=== PATIENT | female | born 1995 | race Caucasian/White ===

== ENCOUNTER 2023-01-14 00:14 | Emergency (ER) | payer OTHER, SELFPAY ==
[2023-01-14 00:17] VITALS: BP 142/95; PULSE 103; RESP 18; TEMP 36.1; O2SAT 100; BMI 33.2
--- NOTE | 2023-01-14 01:22 | CT_ITS ---
EXAM: CT ANGIOGRAPHY CHEST WITHOUT AND WITH INTRAVENOUS CONTRAST CLINICAL INDICATION: BACK PAIN BETWEEN SHOULER BLADES BACK PAIN BETWEEN SHOULER BLADES TECHNIQUE: Helically acquired angiography images were obtained of the chest without and with intravenous contrast. This CT exam was performed using one or more of the following dose reduction techniques: automated exposure control, adjustment of the mA and/or kV according to patient size, and/or use of iterative reconstruction technique. MIP reconstructed images were created and reviewed. CONTRAST: IV 100mL Isovue-370 RADIATION DOSE: CTDIvol = 22.09 mGy, DLP = 594.55 mGy-cm COMPARISON: No relevant prior studies available. FINDINGS: PULMONARY ARTERIES: Unremarkable. Normal in caliber. No evidence of pulmonary embolism. AORTA: Unremarkable. Normal in caliber. No evidence of dissection. GREAT VESSELS OF AORTIC ARCH: Unremarkable. Normal in caliber. No evidence of dissection. LUNGS AND PLEURAL SPACES: Unremarkable. No mass. No consolidation or edema. No pleural effusion or thickening. No pneumothorax. HEART: Unremarkable. Heart size is normal. No pericardial effusion. No significant coronary artery calcifications. MEDIASTINUM: Unremarkable. No mediastinal or hilar adenopathy. Esophagus is unremarkable. No hiatal hernia. THYROID: Unremarkable. No thyroid lesions. BONES/JOINTS: There is mild multilevel spondylosis in the thoracic spine. No suspicious lytic or blastic abnormality. CT/CTA Chest W/WO Contrast IMPRESSION: 1. No evidence for acute cardiopulmonary pathology. 2. No evidence for pulmonary embolism, aortic aneurysm, or aortic dissection. Electronically Signed: Luis F Thomas MD at 2:28 EDT Reading Location ID and State: [facility] / [place] , Service support ,
--- NOTE | 2023-01-14 01:24 | EDS_ITS ---
HPI History of Present Illness Chief Complaint: Back Informant: patient and parent Narrative Narrative: 27-year-old female presenting with back and chest pain. Patient states that yesterday she saw a chiropractor for an ache in between her shoulder blades. She states she underwent an adjustment and felt better but not 100% resolved. She states that after the adjustment she gradually had a return of the pain and is now more severe. The patient states that it hurts in the front of her chest along the ribs. It is worse with movement cough. Patient screams when she sneezes and grabs her chest. She states the only position she can get in that is tolerable is bent forward at the waist leaning up against the bed. She notes a slight cough recently. No fevers. She denies any rashes. No DVT PE risk factors. She states she believes she has a dislocated rib PFSH [facility] Medical History Anxiety Chronic migraine Depression Interstitial cystitis Home Medications L norgest/E estradiol-E estrad 0.15 mg-30 mcg (84)/10 mcg(7) tabs,3mos (Amethia) 1 tab PO DAILY 01/14/23 [History Last Taken Unknown] MEDICAL MARIJUANA 01/14/23 [History Last Taken Unknown] cyclobenzaprine 10 mg tablet 10 mg PO TID PRN Muscle Spasm #15 TABLETS 01/14/23 [Rx Last Taken Unknown] duloxetine 20 mg capsule,delayed release (Cymbalta) 40 mg PO BID 01/14/23 [History Last Taken Unknown] fremanezumab-vfrm 225 mg/1.5 mL subcutaneous auto-injector (Ajovy) 225 mg subcut QMONTH PRN migraine headache 01/14/23 [History Last Taken Unknown] trazodone 50 mg tablet 50 mg PO QHS 01/14/23 [History Last Taken Unknown] Allergy/AdvReac Type Severity Reaction Status Date / Time amoxicillin Allergy Hives Verified 01/14/23 00:17 erythromycin base Allergy Hives Verified 01/14/23 00:17 Penicillins Allergy Hives Verified 01/14/23 00:17 sulfamethoxazole Allergy Hives Verified 01/14/23 00:17 [From Bactrim] trimethoprim [From Bactrim] Allergy Hives Verified 01/14/23 00:17 Social History Smoking Status: Never smoker ROS ROS ED Constitutional Constitutional ED: Denies chills or weight loss Eyes Eyes: Denies change in vision or diplopia ENT ENT ED: Denies ear pain, rhinorrhea or sore throat Cardiovascular Cardiovascular: Reports chest pain; Denies orthopnea, palpitations or racing heartbeat Respiratory/Chest Respiratory/Chest: Reports cough; Denies dyspnea or orthopnea Gastrointestinal Gastrointestinal: Denies abdominal pain, diarrhea, nausea or vomiting Genitourinary Genitourinary ED: Denies dysuria, hematuria or urinary frequency Musculoskeletal Musculoskeletal: Reports back pain; Denies arthralgias or myalgias Integumentary Denies abscess or rash Neurologic Neurologic: Denies headache(s) or weakness Psychiatric Psychiatric: Denies anxiety, depression, suicidal ideation or suicidal thoughts Endocrine Endocrinology: Denies polydipsia, polyphagia or polyuria Allergic/Immunologic Allergic/Immunologic ED: Denies mouth swelling, tongue swelling or urticaria EXAM Physical Exam Narrative Exam Narrative: Patient is sitting in a chair leaning forward with her head and arm against the head of the bed. Const Vital Signs: 01/14/23 00:17 01/14/23 01:43 Temperature 97 F L Temperature Source Temporal Pulse Rate 103 H Respiratory Rate 18 24 H Blood Pressure 142/95 H Blood Pressure Mean 110 Pulse Ox 100 Positive well nourished and well developed General Appearance ED: well developed HEENT Reports normocephalic, head/scalp atraumatic and moist mucous membranes Eyes PERRL and EOMs intact bilaterally Neck no lymphadenopathy, supple and no JVD Chest Wall Chest Narrative: Anterior chest wall tender to palpation Resp normal respiratory effort and clear to auscultation bilaterally Cardio regular rate, regular rhythm and no murmurs GI normal to inspection, nondistended, normoactive bowel sounds and non-tender Palpation: soft Back/Spine no CVA tenderness Back/Spine Narrative: Patient denies any tenderness to palpation of the thoracic spine or paraspinal musculature. There is no hyperemia. No palpable muscle spasm. She screams and begins breathing very hard when she sneezes clutching her chest. Extremity normal to inspection General Extremety ED: Negative for edema General Extremity: Negative for edema Neuro oriented x3 and CN's II-XII intact bilaterally Sensorium / Orientation: alert Motor Exam: strength 5/5 throughout Psych Psych Narrative: VDA Skin no rashes or lesions noted and no wounds MDM MDM MDM Narrative Medical decision making narrative: The patient received Toradol and Norflex. I also administered Benadryl which had improvement of anxiety and helped the patient relax. White count 14.5 with nonspecific significance. Differential normal. BMP showed glucose 132. CTA of the chest was negative for pulmonary embolism or dissection. No pneumothorax or effusion was noted. No obvious bony fractures were seen. On the recommend treatment at home for musculoskeletal pain. I can write for some Flexeril would also recommend a TENS unit and heat. Following up with primary care and or chiropractor. Lab Data Attestation: I reviewed the patient's lab results. Labs: Laboratory Results - last 24 hr 01/14/23 01:35 WBC 14.5 H RBC 4.61 Hgb 14.2 Hct 41.8 MCV 90.7 MCH 30.8 MCHC 34.0 RDW Std Deviation 44.7 H RDW Coeff of Sameer 13.3 Plt Count 227 MPV 9.9 Immature Gran % (Auto) 0.300 Neut % (Auto) 61.6 Lymph % (Auto) 28.2 [place] % (Auto) 8.4 Eos % (Auto) 1.1 Baso % (Auto) 0.4 Absolute Neuts (auto) 8.9 H Absolute Lymphs (auto) 4.09 Nucleated RBC % 0 Sodium 140 Potassium 3.7 Chloride 111 H Carbon Dioxide 23.0 Anion Gap 6 BUN 18 Creatinine 0.90 Estim Creat Clear Calc 98.13 Est GFR (MDRD) Af Amer 96 Est GFR (MDRD) Non-Af 79 BUN/Creatinine Ratio 19.9 Glucose 132 H Calcium 9.2 Discharge Plan Triage Chief Complaint: Back ED Provider: Jonathan Ernst Dx/Rx/DC Orders Clinical Impression: Chest wall pain, Back pain, thoracic Instructions: ED Back and Neck Pain, General Prescriptions: New cyclobenzaprine [cyclobenzaprine] 10 mg tablet 10 mg PO TID PRN (Reason: Muscle Spasm) Qty: 15 0RF No Action L norgest/e.estradiol-e.estrad [Amethia] 0.15 mg-30 mcg (84)/10 mcg (7) tablets,dose pack,3 month 1 tab PO DAILY trazodone 50 mg tablet 50 mg PO QHS duloxetine [Cymbalta] 20 mg capsule,delayed release(DR/EC) 40 mg PO BID MEDICAL MARIJUANA Ajovy Autoinjector 225 mg/1.5 mL auto-injector 225 mg subcut QMONTH PRN (Reason: migraine headache) Primary Care Provider: Anirudh Jerez Referrals: NOT,DEFINED [Non-Staff] - Activity Restrictions/Additional Instructions: I would recommend heat and gentle stretching If you have access to a TENS unit please utilize it Motrin 600 mg every 6 hours as needed for pain Disposition Disposition: Home, Self Care
[2023-01-14] MEDS: Ketorolac 30 MG/ML Syringe IV (01:37)
[2023-01-14] MEDS: Orphenadrine 60 MG/2 ML Ampul IM (01:37)
[2023-01-14 01:43] VITALS: RESP 24
[2023-01-14 01:44] LABS: Absolute Lymphocyte Count 4.09 X10^3/uL (0.83-4.51); Absolute Neutrophil Count 8.9 X10^3/uL (2.0-7.7); Basophil# 0.06 X10^3/uL; Basophil% 0.4 % (0-1); Eosinophil# 0.16 X10^3/uL; Eosinophils% 1.1 % (0-5); Hematocrit 41.8 % (37-47); Hemoglobin 14.2 g/dL (12.0-15.0); Lymphocyte # 4.09 X10^3/ul (0.83-4.51); Lymphocyte % 28.2 % (19-41); Mean Corpuscular Hgb 30.8 pg (27.0-32.0); Mean Corpuscular Volume 90.7 fL (81-99); Mean Platelet Vol. 9.9 fl (6.2-12.0); Monocyte# 1.21 X10^3/uL; Monocyte% 8.4 % (0-10); NRBC Flagged by Analyzer 0 % (0-5); Neutrophil # 8.92 X10^3/uL (2.7-7.7); Neutrophil % 61.6 % (47-70); Platelet Count 227 K/mm3 (150-450); RBC Distribution Width CV 13.3 % (11.6-14.6); RBC Distribution Width SD 44.7 fl (35.1-43.9); Red Blood Count 4.61 M/mm3 (4.2-5.4); White Blood Count 14.5 K/mm3 (4.4-11.0)
[2023-01-14] MEDS: DiphenhydrAMINE 50 MG/ML Syringe IV (01:49)
[2023-01-14 01:58] LABS: Anion Gap 6 (5-15); BUN 18 mg/dL (7-18); BUN/Creat Ratio 19.9 RATIO (10-20); Calcium,Total 9.2 mg/dL (8.5-10.1); Chloride 111 mmol/L (98-107); EST Glomerular Filtration Rate 79 mL/min (>60); Est Glom Filt Rate - Afr Amer 96 mL/min (>60); Estimated Creatinine Clearance 98.13 ml/min; Glucose 132 mg/dL (74-106); Potassium 3.7 mmol/L (3.5-5.1); Sodium Level 140 mmol/L (136-145)
[2023-01-14 03:21] VITALS: BP 131/81; PULSE 91; RESP 18; O2SAT 99
== END 2023-01-14 03:22 | disposition home or self-care (01) ==
PROVIDERS: Emergency Provider Emergency Medicine; PCP Family Medicine; Visit Provider Emergency Medicine
DX: R07.89 Other chest pain (principal); M54.6 Pain in thoracic spine; F41.9 Anxiety disorder, unspecified; G43.709 Chronic migraine without aura, not intractable, without status migrainosus; Z79.3 Long term (current) use of hormonal contraceptives; Z79.899 Other long term (current) drug therapy; F32.A Depression, unspecified
CPT/HCPCS: 71275; 80048; 85025; 96372; 96374; 96375; 99283; Q9967; A4216

== ENCOUNTER → 2023-03-18 | Outpatient (CLI) | payer OTHER, SELFPAY | END | disposition home or self-care (01) | LOC: LABSPEC 10:02 | PROVIDERS: PCP Family Medicine; Referring Provider Family Medicine; Visit Provider Family Medicine | DX: N39.0 Urinary tract infection, site not specified (principal) | CPT/HCPCS: 87491; 87591; 87661 ==

== ENCOUNTER 2023-12-14 08:00 | Outpatient (RCR) | payer OTHER, SELFPAY ==
--- NOTE | 2023-12-14 09:00 | BH.SGPN.GN ---
Behaviors/Verbalizations/Mental Status: [] Eye contact is good. Motor activity is appropriate. Appearance is casual. Speech is Appropriate. Mood is anxious/irritable. Affect is congruent. Thoughts are linear and logical. No evidence of psychosis. Reviewed daily check in sheet and pt reports 1/5 for suicidal thoughts and 1/5 for intent. Suicide risk assessment completed prior to group. Client Response/Progress/Benefit: [] Pt was an active participant in group discussions. Attentive. Daily symptom tracker notes 4/5 for irritability and 3/5 for depression, anxiety, and self-harm urges. Tearful at times. Today was pt's first day in IOP level of care and she briefly shared struggles which led to admission. Pt states that she was recently admitted to a psychiatric unit which described as a horrible experience. She elaborated on her poor care and how that impacted her. Appears to have caused some mistrust in mental health providers and the system as a whole. Visibly upset when describing her recent experiences. Admits to explosive anger which can be over small things. Also discussed self-harm and erratic mood which have impacted her functioning. According to pt she has also been having repressed memories. Admits to being very apprehensive about entering IOP and group counseling due to recent negative experiences. Group provided support and provided feedback on what to expect for her first day in [facility] which was beneficial. Will continue in [facility] to maintain safety, prevent decompensation/re-admission to psych unit, and to improve functioning. Narrative Note: []
--- NOTE | 2023-12-14 10:15 | BH.SGPN.GN ---
Behaviors/Verbalizations/Mental Status: []Client alert and oriented, casually dressed and groomed. Eye contact good. Motor activity appropriate. Speech within normal limits. Affect congruent, mood anxious and content. Thoughts linear, logical, no signs of hallucinations or delusions. Client Response/Progress/Benefit: [] Pt was an attentive an active participant, AEB taking notes and providing input in group discussion when prompted. Attentive during psychoeducation. Pt engaged during interactive discussion in which the group defined self-care and discussed its benefits. Group discussed barriers to engaging in self-care. Group members together came up with guilt, time, ?people pleasing?, not knowing what to do, and perception that its unproductive as barriers to engage in self-care. Pt stated their personal barrier is feeling like pt must ?earn it.? Pt participated in small groups where they worked to identified and challenged common self-care ?myths?. Benefited from increased awareness of self-care, its benefits, and the consequences of not utilizing self-care strategies. Will continue IOP tx to prevent rehospitalization, improve daily functioning, and increase distress tolerance skills. Narrative Note: []
--- NOTE | 2023-12-14 10:45 | BH.MTP_ITS ---
Master Treatment Plan Patient Information Program Physician:: Dr. Galilea Montemayor Primary Therapist:: Suzan MCNALLY Psychiatric Diagnoses Psychiatric Diagnoses:: Major depressive disorder, recurrent, severe without psychosis; PTSD; Skin excoriation disorder; Strong cluster B traits Diagnosis Code(s):: F 33.2 Estimated LOS Estimated LOS (in weeks):: 6 Problem/Goal #1 Problem/Goal #1 Stated Goal:: Pt will decrease depressive symptoms, hopelessness, worthlessness, negative self-talk, and self-harm urges. Description of Barriers: Pt has self-harm urges daily and pt reports the urges are very hard to manage. Pt feels it is almost an addiction and it is exhausting. Pt is currently estranged with her parents and has limited support outside of her Shaman. 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 Pt has negative view of self and reports being very emotionally responsive. Functional Impact: Pt is a 28-year-old female with a history of MDD, PTSD, JAILYN, and OCD who was referred to [facility] following a hospitalization in September at [facility] for suicidal ideations. Pt reports mental health decompensation for months. Pt endorses a depressed mood, severe irritability, increased appetite with weight gain, isolation, low motivation, poor sleep, lack of energy, anhedonia, and lack of concentration. Pt reports her symptoms have been worse since she started having repressed memories surface from her childhood. Pt is not speaking with her parents because of the memories pt has been having. Pt endorses restlessness, anxiety, skin-picking, avoidance, passive thoughts of , and low distress tolerance which impacts pt's ability to regulate stress/emotions. 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 Pt's social relationships are also struggling due to her mental health symptoms. Goal Relevant Strengths/Supports: Pt is connected with outpatient counseling, psychiatry, and she has a Shaman. Pt is intelligent and has benefitted from some forms of therapy in the past. Objectives Objective #1: Stated Objective: Pt will learn and utilize 2-3 healthy coping strategies to better manage depressive symptoms and reduce anger as shown by a decrease of DMS-5 symptoms for depression and anger. Interventions: Through group and individual sessions, therapist will help pt identify triggers and warning signs of depression and guilt including emotional, physical, and behavioral changes. Therapist will teach pt various coping skills to manage symptoms and give pt tangible resources to use to regulate emotions. Therapist will use cognitive restructuring techniques and help pt gain awareness of negative thoughts that reinforce guilt, anger, and depression. Therapist will provide psychoeducation on maintenance cycles and help pt learn ways to break unhealthy maintenance cycles. Therapist will help pt incorporate behavioral activation and assist pt in setting SMART goals. Discharge Criteria: Pt will have met this goal when can report learning and using at least 2 coping skills to manage depressive symptoms and reduce anger. Additionally, pt will have met this goal when pt's DSM-5 scores for depression and anger decrease. Target Date: 01/25/24 Review Date: 01/04/24 Status: open Objective #2: Stated Objective: Pt will identify 2 triggers and 2 coping skills to use when pt experiences mood dysregulation and has increased urges to engage in unhealthy, impulsive coping skills. Interventions: Through individual and group counseling pt will be provided with education on healthy coping skills to manage mood symptoms, impulse, and crisis behaviors. Therapist will provide information on healthy alternatives to emotion release. Individual therapist will teach pt DBT techniques to increase emotional regulation and mindfulness. Therapist will also engage pt to use self- compassion while working to change behaviors. Discharge Criteria: Pt will have accomplished this goal when pt can identify at least 2 triggers and 2 coping skills to increase mood stability and reduce unhealthy action urges. Target Date: 01/25/24 Review Date: 01/04/24 Status: open Problem/Goal #2 Problem/Goal #2 Stated Goal:: Will reduce anxiety and PTSD symptoms through increasing emotional regulation and distress tolerance skills Description of Barriers: Pt has self-harm urges daily and pt reports the urges are very hard to manage. Pt feels it is almost an addiction and it is exhausting. Pt is currently estranged with her parents and has limited support outside of her Shaman. 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 Pt has negative view of self and reports being very emotionally responsive. Functional Impact: Pt is a 28-year-old female with a history of MDD, PTSD, JAILYN, and OCD who was referred to [facility] following a hospitalization in September at [facility] for suicidal ideations. Pt reports mental health decompensation for months. Pt endorses a depressed mood, severe irritability, increased appetite with weight gain, isolation, low motivation, poor sleep, lack of energy, anhedonia, and lack of concentration. Pt reports her symptoms have been worse since she started having repressed memories surface from her childhood. Pt is not speaking with her parents because of the memories pt has been having. Pt endorses restlessness, anxiety, skin-picking, avoidance, passive thoughts of , and low distress tolerance which impacts pt's ability to regulate stress/emotions. 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 Pt's social relationships are also struggling due to her mental health symptoms. Goal Relevant Strengths/Supports: Pt is connected with outpatient counseling, psychiatry, and she has a Shaman. Pt is intelligent and has benefitted from some forms of therapy in the past. Objectives Objective #1: Stated Objective: Pt will increase ability to manage stressors and anxiety by gaining 2-3 distress tolerance skills. Interventions: Through group and individual therapy, pt will learn various coping skills to help manage stress and anxiety. Therapist will utilize DBT distress tolerance skills to increase awareness and give pt tools to more effectively manage anxiety. Therapist will provide psychoeducation on emotional regulation and help pt identify unhealthy coping skills he wants to change. Discharge Criteria: Pt will have accomplished this goal when can report improved ability to manage stressors and identify at least 2 distress tolerance skills. Target Date: 01/25/24 Review Date: 01/04/24 Status: open Objective #2: Stated Objective: Pt will identify 2-3 anxiety and PTSD triggers and 2 coping skills to use when feeling anxious or overwhelmed to manage anxiety as shown by reducing DSM-5 scores for anxiety Interventions: Therapist will provide education on anxiety, avoidance behaviors, and maintenance cycles. Therapist will help pt explore personal symptoms and warning signs of anxiety and irritability. Therapist will teach pt coping skills to improve emotional regulation, mindfulness, and distress tolerance to help pt cope with anxiety in the moment. Discharge Criteria: Pt will have accomplished this goal when she can identify at least 2 triggers and report using 2 coping skills to manage anxiety and PTSD. Additionally, pt will have accomplished this goal AEB reduction of DSM-5 scores for anxiety. Target Date: 01/25/24 Review Date: 01/04/24 Status: open
--- NOTE | 2023-12-14 10:45 | BH.COMM ---
Communication Note Communication with Client Communication Note: Met with pt to complete initial paperwork and administer the CSSR-S screening and risk assessment. Pt is moderate-severe risk. Pt denies any active SI, plan, or intent within the past month. Pt does admit to thoughts of within the past month and passive SI within the last month. Pt also reports having daily self-harm urges that feel like an ?addiction? but pt reports she self-harms to self-soothe only. Pt denies any suicide attempts in her lifetime. 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 Pt has no access to weapons. Pt a Discussed case with Dr. Montemayor and pt will be admitted to [facility] tx with a diagnosis of MDD, recurrent, severe, without psychosis F 33.2
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
--- NOTE | 2023-12-16 10:00 | BH.NA ---
Physical Data Vital Signs Pulse Rate: 82 Blood Pressure: 155/74 Height/Weight Height: 1.75 m Weight:: 99.79 kg Weight in Pounds: 220.0 lbs Current Medication Compliance Medication Compliance Do you take your medication as prescribed?: Yes Nutritional History Appetite Nutritional Instructions: Describe your appetite:: Fair Additional nutritional information:: Client states she has gained about 70lbs in the last 5 years. Client states it is her normal to not eat until around 2pm daily. Functional Assessment Sleep Pattern Describe any problems with sleeping: Client states she sleeps about 8 hours per night. Sensory/Communication Assess Communication Problems Do you have difficulty understanding what people are saying?: No Medical Problems/History Genitourinary Conditions Genitourinary: Other (See comments) (interstitial cystitis- ongoing discomfort from this) Pain Assessment Do you have acute or chronic pain?: Yes (bladder from interstitial cystitis) Surgical History Surgical History Have you had any surgeries? If so, list type and date:: Yes (wisdom teeth) Substance Abuse Substance Abuse Please describe substance abuse in the last 30 days:: Client denies alcohol, tobacco or caffeine use. Client uses medical marijuana daily for interstitial cystitis pain. Client uses psilocybin once weekly. Mental Status Summary Mental Status Significant Findings/Observations on Appearance and Mood:: Client is alert and oriented x 4. Client is casually groomed with good hygiene. Client is cooperative with assessment. Client makes fair eye contact. Client's voice has normal rate and volume. Client has a restricted affect. Client makes logical associations and has normal processing. Client denies delusions/hallucinations. Client admits to some SI since her hospitalization in September 2023, but denies current SI. 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 Client states she first took medication for her mental health within the last 8 years. Describe (age, circumstance, etc) any past hospitalizations: September 2023- [facility] for SI and self-harm Current providers for mental health treatment (counselor, psychiatrist, shoe parts caser, etc.): Dr. Angelo at [facility] for [facility] (but switching to Dr. Davey at [facility] in March 2024) and Alexa at [facility] in [place] for therapy Fall Risk Assessment Age Age: Less than 60 Mental Status Mental Status: Willing & able to ask for assistance when needed Physical Status Physical Status: No problems Impairments Impairments: None Elimination Elimination: Continent AND independent Gait or Balance Gait or Balance: Walks independently Hx of Falls History of falls in the past 6 months: No known history Medications/Substances Psychotropics:: Antidepressants and Antihistamines (e.g. Benadryl) Medications/substances used within the past 24 hours or ordered to administer: 1-2 of the medications/substances listed above Total Score Total Points:: 1 RN Summary of Impressions Impressions Recommendations Impressions: Psychiatric Issues: 1. Major depressive disorder, recurrent, severe without psychosis 2. PTSD 3. Skin excoriation disorder 4. Strong cluster B traits 5. Chronic pain 6. Primary support and work issues Level of Care How do the client's current symptoms and functional deficits support need for this level of care?: Client was referred to IOP after a recent hospitalization in September 2023 for self-harm and SI. Client states she has issues with self-harm (scratching, biting, hitting herself) and thinks taking Semiglutide slowed down her digestion and interfered with the absorption of her antidepressants and she began to have suicidal thoughts. Client states she also feels memories that she had previously repressed from childhood are coming up and have made her decide to stop communication with her parents. Client reports she has had some SI since her hospitalization in September, but denies any SI in the past week or more. IOP will promote gains and prevent further decompensation while providing social support and skills training.
--- NOTE | 2023-12-16 10:10 | BH.SGPN.GN ---
Behaviors/Verbalizations/Mental Status: [] Eye contact is good. Motor activity is appropriate. Appearance is casual. Speech is Appropriate. Mood is anxious. Affect is congruent. Thoughts are linear and logical. No evidence of psychosis. Client Response/Progress/Benefit: [] Pt an active participant in group discussions. Participated during interactive discussion on defining conflict (internal/external) and possible benefits to conflict. Attentive during psychoeducation on conflict styles (Avoidant, Accommodating, Competing, Cooperative) and engaged during interactive discussion in which peers identified the benefits and consequences to each conflict style. Pt stated she can identify with all of the conflict styles depending on what's going on in her life. Pt stated she is often avoidant of internal conflicts and immediate family. Stated she also can be accommodating to her parents needs over her own needs. Benefited from increased awareness of the impact of conflict styles in mental health. Will continue in IOP tx to challenge distortions, promote use of healthy coping skills, and prevent decompensation.
[2023-12-16 10:30] VITALS: BP 155/74; PULSE 82
--- NOTE | 2023-12-16 11:15 | BH.SGPN.GN ---
Behaviors/Verbalizations/Mental Status: []Eye contact is good. Motor activity is appropriate. Appearance is casual. Speech is Appropriate. Mood is depressed. Affect is congruent. Thoughts are linear and logical. No evidence of psychosis. Client Response/Progress/Benefit: [] Pt was an active participant in group discussions and activity. Engaged with peers in activity and identifying healthy ways to approach each conflict scenario. Group discussed various conflict resolution skills that can be useful in addressing conflict outside of IOP. Benefited from practicing and learning conflict resolution skills during group activity. Able to identify areas pt wants to work on to improve how pt manages conflict both internally and externally. Expressed wanting to work on their emotion regulation by taking a step back to calm before responding. Will continue in IOP to stabilize mood, improve distress tolerance skills, and reduce negative thinking patterns. Narrative Note: []
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
--- NOTE | 2023-12-16 12:58 | BH.PSY.EVA_ITS ---
Initial Treatment Plan Patient Information Visit Information: ADMISSION DATE: EXPECTED LOS: 4-6 weeks Problems/Symptoms Problem #1:: Mood instability Symptom:: Sadness, reactive moods, irritability, agitation, thoughts of self- harm and actions, hopelessness, worthlessness, low energy, guilt, passive thoughts of . Problem #2:: Anxiety Symptom:: Worry, rumination, avoidance, intrusive memories
--- NOTE | 2023-12-18 09:00 | BH.SGPN.GN ---
Behaviors/Verbalizations/Mental Status: [] Eye contact is good. Motor activity is appropriate. Appearance is casual. Speech is Appropriate. Mood is anxious/irritable. Affect is congruent. Thoughts are linear and logical. No evidence of psychosis. Reviewed daily check in sheet and no reports of suicidal ideations or intent. Client Response/Progress/Benefit: [] Pt was an active participant in group discussion. Attentive. Daily symptom tracker notes 2/5 for depression and agitation. Also reports 1/5 for self-harm urges. Pt utilized the group to ask for feedback on a variety of topics (trusting others, boundaries, calming skills, etc). Insight that she struggles with being vulnerable and receiving help from others which can lead to getting overwhelmed. Emotion for today is agitation. Limited progress however first week in program. Benefited from group support and feedback. Will continue in IOP to maintain safety, prevent decompensation/re-admission to psych unit, and to increase healthy coping. Narrative Note: []
--- NOTE | 2023-12-18 10:13 | BH.SGPN.GN ---
Behaviors/Verbalizations/Mental Status: [] Eye contact is good. Motor activity is appropriate. Appearance is casual. Speech is Appropriate. Mood is depressed. Affect is congruent. Thoughts are linear and logical. No evidence of psychosis. Client Response/Progress/Benefit: [] Pt was an active participant in group discussions. Attentive during psychoeducation on the 4 communication styles (Passive, Passive-Aggressive, Aggressive, and Assertive) and the obstacles to effective communication. ?[id number] a barrier they personally struggle with as communicating when emotionally dysregulated. Contributed during interactive discussion on the benefits of communicating effectively which included; having one's needs met, building connection with others, decreases stress and uncertainty, improved relationships, healthier boundaries, and increased understanding of others. Worked well in small group in which pt and peers identified the benefits and disadvantages to the different communication styles. Benefited from increased understanding of communication styles and how these can impact effective communication. Will continue in IOP to prevent decompensation, improve mood, and improve functioning. Narrative Note: []
--- NOTE | 2023-12-18 11:10 | BH.SGPN.GN ---
Behaviors/Verbalizations/Mental Status: []Pt alert and oriented, casually dressed. Eye contact fair. Motor activity appropriate. Speech within normal limits. Affect congruent, mood euthymic. Thoughts linear, logical, no signs of hallucinations or delusions. Client Response/Progress/Benefit: [] Pt responded well to session AEB Pt listening attentively to others and providing input during group discussion on the pay offs and costs of the different communication styles. Pt able to connect how current communication style impacts mental health. Connected with peers? comments about importance of using assertive communication. Pt did well with practicing being assertive in the group activity and worked with group to identify potential skills for improving communication skills. Pt seemed to benefit from increasing awareness of healthy strategies to improve communication. Will continue IOP tx to improve healthy copings, challenge negative thoughts/distortions, and prevent decompensation.
== END 2023-12-21 23:59 ==
LOC: BHIOP 08:00
PROVIDERS: PCP Family Medicine; Referring Provider Psychiatry & Neurology Psychiatry; Visit Provider Psychiatry & Neurology Psychiatry
DX: F33.2 Major depressive disorder, recurrent severe without psychotic features (principal); F43.10 Post-traumatic stress disorder, unspecified; F42.4 Excoriation (skin-picking) disorder; Z79.899 Other long term (current) drug therapy
CPT/HCPCS: S9480; 90834; 90853

== ENCOUNTER 2023-12-22 08:05 | Outpatient (RCR) | payer OTHER, SELFPAY ==
[2023-12-22 00:27] VITALS: BP 155/74; PULSE 82
--- NOTE | 2023-12-23 09:00 | BH.SGPN.GN ---
Behaviors/Verbalizations/Mental Status: []Pt alert and oriented, neatly dressed and groomed. Eye contact fair. Motor activity appropriate. Speech within normal limits. Affect congruent, mood tired. Thoughts linear, logical, no signs of hallucinations or delusions. Reviewed pt?s symptom tracker, no risk for suicidal ideation, plan, or intent 12/23/23 Client Response/Progress/Benefit: []Pt was an active participant in group discussions. Attentive. Able to identify mental health wins including going to the gym even though pt was tired and opening up emotionally to one of her coworkers which was a positive experiecne. Pt's stressor today is that pt has been extremely tired lately which pt feels it due to her medications and pt's bladder condition has been painful lately. Pt stated pt is feeling tired this morning. Pt receptive to feedback from peers which pt reported was helpful. Progress noted. Benefited from group support, encouragement, and feedback. Will continue in IOP to prevent decompensation, improve daily functioning, and increase distress tolerance skills. Narrative Note: []
--- NOTE | 2023-12-23 10:10 | BH.SGPN.GN ---
Behaviors/Verbalizations/Mental Status: [] Eye contact is good. Motor activity is appropriate. Appearance is casual. Speech is Appropriate. Mood is content. Affect is congruent. Thoughts are linear and logical. No evidence of psychosis Client Response/Progress/Benefit: [] Pt responded well to session AEB contributing to small group discussion, taking notes, and listening attentively to others. Group defined anger and discussed the benefits of managed anger and anger as a secondary emotion. Group shared perspective on benefits of anger as advocating for self and getting needs met, as well as a catalyst for change. Pt completed worksheet on anger triggers and personal warning signs of anger. Pt identified a common trigger as people lying or being disrespectful. Appeared to benefit from increased knowledge of the anger cycle as well as personal triggers. Will continue IOP to increase healthy coping, prevent decompensation, and improve functioning and mood stability. Narrative Note: []
--- NOTE | 2023-12-23 11:10 | BH.SGPN.GN ---
Behaviors/Verbalizations/Mental Status: []Client alert and oriented, casually dressed and groomed. Eye contact fair. Motor activity appropriate. Speech within normal limits. Affect constricted, mood dysthymic. Thoughts linear, logical, no signs of hallucinations or delusions. Client Response/Progress/Benefit: []Pt was engaged throughout AEB contributing to group discussion and activity. Group processed how they each responded to the intentionally difficult task they were asked to completed and described the physical and emotional anger cues experienced throughout, as well as strategies used for managing these frustrations. Pt contributed as group brainstormed healthy coping skills for better managing anger which included: music, walking/exercise, taking a break, healthy venting, avoiding unnecessary stressors, reflection, and journaling. Pt cooperative with working in small groups to identify what strategy wants to work on to help interrupt personal anger cycle. Pt to continue IOP to improve distress tolerance, improve healthy coping skills, and prevent decompensation.
--- NOTE | 2023-12-25 10:10 | BH.SGPN.GN ---
Behaviors/Verbalizations/Mental Status: []Pt alert and oriented, casually dressed and groomed. Eye contact good. Motor activity appropriate. Speech within normal limits. Affect congruent, mood dysthymic. Thoughts linear, logical, no signs of hallucinations or delusions. Client Response/Progress/Benefit: [] Pt took notes and contributed to group discussions. Attentive during psychoeducation on growth mindset. Participated during the activity. Interactive group discussion on growth mindset in which group verbalized their current fixed mindsets and how they affect their mental health. Pt shared common fixed mindset thoughts they have which included I will never find love; People find me hard to deal with; All humans care about is visual stimulation?. These thoughts lead to feeling and staying stuck, not reaching out to others, and disqualifying progress. Pt stated they have personally struggled with fixed thoughts causing them to stop trying. Pt benefited from increased awareness of growth mindset and fixed thoughts and how fixed thoughts impact their mental health. Will continue IOP tx to prevent decompensation, improve daily functioning, and promote mood stability. Narrative Note: []
--- NOTE | 2023-12-25 11:15 | BH.SGPN.GN ---
Behaviors/Verbalizations/Mental Status: []Pt alert and oriented, neatly dressed and groomed. Eye contact good. Motor activity appropriate. Speech within normal limits. Affect congruent, mood depressed. Thoughts linear, logical, no signs of hallucinations or delusions. Client Response/Progress/Benefit: [] Pt was an active participant during activity and discussion. Pt did well to remain attentive and participate as group worked on identifying characteristics and benefits of adopting a growth mindset. Worked with fellow participants in reframing the example fixed thoughts into growth mindset thoughts. Pt worked on changing own fixed thought and reframed the thought to ?I am just as worthy of love and respect as anyone else.? Pt also wants to work on using dialectical thinking. appeared to benefit from challenging own thoughts and engaging in the activity. Pt will continue IOP tx to reduce negative thinking patterns, improve distress tolerance skills, and improve daily functioning. ? Narrative Note: []
--- NOTE | 2023-12-25 14:58 | BH.MDN_ITS ---
Multi-Disciplinary Note Note 45-min Individual: Time Started:: 09:20 Date: 12/25/23 Purpose of session/treatment goals addressed:: To work on goal #1 of pt's tx plan. Eye Contact:: Fair Motor Activity:: Restless Appearance:: Neat Speech:: Tangential Mood:: Anxious and Depressed Affect:: Congruent Thoughts:: Linear, Logical and No evidence of hallucinations/delusions noted Staff Interventions:: thought challenging, CBT techniques, mindfulness skills, strengths perspective, goal setting and other (dialectical thinking ) Client Response:: Pt responded well to session, open to meeting with therapist. Pt appeared depressed when she entered session and shared she is tired, irritable, and low energy. Pt reports she has been very tired on the new medication and she is sleeping up to 14 hours a day. Pt has been trying to exercise and she has been pushing herself to get to the gym, but she feels that even working out does not give her energy. Pt will meet with Dr. Montemayor next week to discuss medications and pt is encouraged to let [facility] staff know if this side effect does not resolve by next Thursday. Pt shared other stressors impacting her overall mental health right now is her lack of concentration, inability to regulate anxiety, and her body dysmorphia. Pt stated she has been looking back at old pictures of herself when she weighed less and did not have as much acne. Pt has self-harming behaviors in which pt scratches herself and picks at her face. Pt shared she has been tearful and highly self-critical because of her appearance. Pt had a few previous relationships that ended due to pt's appearance, per her report, so this reinforces pt's negative view of self. Pt stated because of her negative view of self, pt avoids meeting new people and being social. Pt receptive to dialectical thinking to increase self-compassion towards pt's appearance and self. Pt reported liking this technique and feels she could implement it. Pt receptive to discussion of coping mechanisms for pt to try when she feels dysregulated at work. One of these includes asking for more help from colleagues, setting smaller goals for her work day, and practicing calming skills before she goes into work. Risks/Concerns:: Pt denies any active SI, plan, or intent as of 12/25/23. Pt denies self-harming since admission to [facility], but pt still has urges. Pt does admit to thoughts of . Progress Toward Goals/Plan:: Progress mild as pt reports her overall mood and symptoms have not decreased since admission. Pt is showing progress with reduced self-harming behaviors and pt shared she feels much less anger, but now pt is extremely fatigued. Pt reports her body dysmorphia has been more intense lately, but it has always been a problem for pt. Pt's stressors with family and her work are her biggest ongoing stressors. Pt will continue IOP tx to prevent decompensation, gain distress tolerance skills, and improve daily functioning. Time Stopped:: 10:10
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
--- NOTE | 2023-12-28 10:15 | BH.SGPN.GN ---
Behaviors/Verbalizations/Mental Status: [] Eye contact is good. Motor activity is appropriate. Appearance is casual. Speech is Appropriate. Mood is depressed/irritable. Affect is congruent. Thoughts are linear and logical. No evidence of psychosis. Client Response/Progress/Benefit: [] Pt did well to participate in activity and was engaged and attentive during psychoeducation and interactive discussion on coping skills, why people use unhealthy coping skills, how to replace unhealthy coping skills, and internal vs external coping skills. Attentive as peers came up with list of unhealthy and maladaptive coping skills. Group discussed the effects of how unhealthy coping skills can impact mental health in a negative way. Benefited from increased understanding of unhealthy coping skills and the need for developing healthy internal and external coping skills. Participated in small group activity which was meant to highlight the importance of having both internal and external coping skills. Will continue in IOP to prevent decompensation/re-admission to psych unit, stabilize mood, and increase healthy coping. Narrative Note: []
--- NOTE | 2023-12-28 11:12 | BH.SGPN.GN ---
Behaviors/Verbalizations/Mental Status: [] Client alert and oriented, casually dressed and groomed. Eye contact good. Motor activity appropriate. Speech within normal limits. Affect congruent, mood euthymic. Thoughts linear, logical, no signs of hallucinations or delusions. Client Response/Progress/Benefit: [] Client responded well to session, attentive. Did well to process activity and work with group to relate the strategies used to overcome barriers in the activity to managing change in own life. Client identified a change would like to make is to challenge self harm urges. Client stated currently in preparation stage. Reported goal to work on as trying new coping skills and with keeping what work and what doesn't. Appeared to benefit from identifying a small goal to work towards. Client will continue IOP tx to increase self worth, gain healthy coping skills, and improve daily functioning. Narrative Note: []
--- NOTE | 2023-12-28 20:00 | BH.SGPN.GN ---
Behaviors/Verbalizations/Mental Status: []Pt alert and oriented, casually dressed and groomed. Eye contact good. Motor activity appropriate. Speech within normal limits. Affect congruent, mood depressed. Thoughts linear, logical, no signs of hallucinations or delusions. Client Response/Progress/Benefit: [] Pt responded well to session, taking notes and contributing when prompted. Group discussed the different categories of coping skills which included distraction, emotional release, grounding, self-love, and thought challenging. Pt participated in creating a coping skills ?menu? from the five categories of coping skills. Pt's coping skill menu included: exercise, spending time outdoors, aromatherapy, self-compassion, and dialectical thinking. Appeared to benefit from increasing repertoire of healthy coping skills. Will continue IOP to promote mood stability, combat distortions, and increase distress tolerance skills. Narrative Note: []
--- NOTE | 2023-12-30 09:00 | BH.SGPN.GN ---
Behaviors/Verbalizations/Mental Status: [] Pt alert and oriented, casually dressed and groomed. Eye contact good. Motor activity restless, rocking back and forth, shaking leg. Speech within normal limits. Affect constricted, mood agitated. Thoughts linear, logical, no signs of hallucinations or delusions. Reviewed pt?s symptom tracker, no risk for suicidal ideation, plan, or intent 12/30/23 Client Response/Progress/Benefit: []Pt was not an active participant in group discussions. Appearing to be consumed by own thoughts and actively rocking back and forth or shaking throughout. Pt not making eye contact. Reports I really don't want to talk to anyone right now and declined to share in group. Pt met with program psychiatrist today who assesses for safety. Will additionally be encouraged to check-in with individual therapist as well. Narrative Note: []
--- NOTE | 2023-12-30 10:10 | BH.SGPN.GN ---
Behaviors/Verbalizations/Mental Status: [] Eye contact is poor. Motor activity is appropriate. Appearance is casual. Speech is Appropriate. Mood is depressed/irritable. Affect is congruent. Thoughts are linear and logical. No evidence of psychosis. Client Response/Progress/Benefit: [] Pt did not participate during group discussions. Attentive at times during interactive discussion on defining what a boundary is in mental health. Attentive at times as peers identified challenges to setting boundaries which included; people pleasing, fear of rejection, fear of loss, fear people won't respect the boundary, etc. Attentive at times as peers identified the benefits to setting boundaries such as reduces assumptions, can reduce stress, improve communication/relationships, and can keep us safe. Attentive during psychoeducation on types of boundaries (rigid, porous, flexible). Pt benefited from increased awareness and insight on the importance/benefit to setting health boundaries, however did not engage in conversations and appears distracted/irritable. This therapist asked if pt wanted to meet with individual counselor today, however she declined. She was agreeable to meet with program psychiatrist. She denied any safety issues, suicidal ideations, or concerns for her safety. Will continue in IOP to prevent decompensation/re-admission, stabilize mood, and maintain safety. Narrative Note: []
--- NOTE | 2023-12-30 11:05 | BH.SGPN.GN ---
Behaviors/Verbalizations/Mental Status: []Eye contact is poor. Motor activity is appropriate. Appearance is casual. Speech is Appropriate. Mood is depressed and irritable. Affect is flat. Thoughts are linear and logical. No evidence of psychosis. Client Response/Progress/Benefit: []Pt did not respond well to session, eye contact was poor and pt declined to share. Pt was taking notes throughout session. Pt told therapist she had to leave ?right now? after group when therapist offered to meet with pt. Pt denied any suicidal ideations or self-harm. Pt is scheduled to attend IOP on 01/01/24 and will meet with therapist then. Seemed to benefit from increased awareness of how different boundary styles can impact mental health. Will continue IOP tx to prevent decompensation, improve daily functioning, and increase distress tolerance skills. ? Narrative Note: []
--- NOTE | 2023-12-30 11:54 | PCM.BH.PN ---
Progress Note Progress Note: History of Present Illness/Interim History: The patient is a 28-year-old single, female with a history of depression, anxiety, skin picking disorder, PTSD and strong cluster B traits who is seen in follow-up at the [facility] behavioral health IOP. I last saw the patient 2 weeks ago and at that time memantine was added for skin picking and Lamictal was added for anger and mood stabilization. The patient states that she is tolerating the medication but she does feel that it makes her really tired. She can sleep up to 14 hours a day she says. The patient also states that she has gained some weight since starting the medications. She is continuing to deal with emerging repressed memories from childhood of trauma. Denies any self-harm since several weeks ago. She continues to have poor body image and very reactive mood and other symptoms of depression. She admits to passive thoughts of . She continues to deny suicidal ideation, homicidal ideation, hallucinations or delusions. She has admitted to having a plan for suicide but does not want to share it and she has no prior suicide attempts. Skin picking she says that since the medication was started she feels the urges to pick her skin have become a little less strong although she is still engaging in skin picking. Current Psychiatric Medications: [] Cymbalta 30 mg p.o. twice daily (decreased from 80 mg about 3 months ago and has been on it 6 years total); trazodone 50 mg p.o. daily; Vistaril 50 mg p.o. twice daily as needed; Lamictal 25 mg p.o. twice daily for 2 weeks to be increased to 50 mg today for 2 weeks. Memantine 10 mg p.o. twice daily but patient has only been taking it once daily. Mental Status Examination: [] The patient is a 29-year-old female who is overweight with short hair but otherwise appears normal for stated age and is casually dressed and groomed with good hygiene. She is ambulatory with a normal gait and has no psychomotor agitation or retardation. She is cooperative during the interview even though she seems somewhat irritated at times and upset. Eye contact is good and speech is normal rate and rhythm and fluent with no pressure. Mood is anxious and depressed. Affect is constricted and almost tearful at times. Thought process is goal-directed and organized. Thought content: There is evidence of passive thoughts of . There is no evidence of suicidal ideation, homicidal ideation, hallucinations or delusions. Reality testing is intact. Judgment is intact. Intelligence is above average. Insight: Some present but limited. Impulsivity high. Diagnoses: [] 1. Major depressive disorder, recurrent, severe without psychosis 2. PTSD 3. 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 Strong cluster B traits 5. Chronic pain 6. Primary support and work issues Plan: [] The patient will continue the IOP in behavioral health at [facility] as the structure, support, education and group therapy will hopefully prevent worsening of the patient's symptoms which could require hospitalization. She felt safe during the interview and if it anytime she does not feel safe she agrees to let us know or go to the emergency room. The risk, options, possible complications and side effects of the medications were discussed again with the patient and she understands accepts these. The patient understands that severe fatigue and weight gain with the Lamictal memantine are in usual but she feels that she is getting them. The patient was sleeping a lot and napping a lot at the initial visit prior to these medications also and she agrees that some of this might be due to her ongoing depression and the stress of the IOP. She agrees to continue her Lamictal and change it to 50 mg p.o. at bedtime instead of in the morning. She agrees to increase her memantine to twice daily as it was ordered. She will continue to follow-up with her outpatient providers and I will see the patient in follow-up in 2 weeks. If the patient is unable to tolerate the Lamictal we may consider trying a low-dose of Vraylar next.
--- NOTE | 2024-01-01 09:00 | BH.SGPN.GN ---
Behaviors/Verbalizations/Mental Status: [] Eye contact is good. Motor activity is appropriate. Appearance is casual. Speech is Appropriate. Mood is depressed/irritable. Affect is congruent. Thoughts are linear and logical. No evidence of psychosis. Reviewed daily check in sheet and pt reports 1/5 for suicidal thoughts and 0/5 for intent. Scores lower than earlier this week. Client Response/Progress/Benefit: [] Pt participated at times during the group discussions. Attentive. Symptom tracker notes 2/5 for depression and 1/5 for self-harm urges. It's been really difficult this week.She elaborated in repressed memories regarding her parents which have impacted her relationship with them but also family friends. She talked about her neighbors who have been healthy support texting her this week. Uncertain how to maneuver this relationship and asked for feedback from the group. Group discussion on managing difficulty conversations which was beneficial. Limited progress noted this week. Benefited from group support, encouragement, and feedback. Will continue in IOP to maintain safety, stabilize mood, and prevent decompensation/re-admission to psych unit. Narrative Note: []
--- NOTE | 2024-01-01 10:10 | BH.SGPN.GN ---
Behaviors/Verbalizations/Mental Status: [] Pt alert and oriented, casually dressed and groomed. Eye contact good. Motor activity appropriate. Speech within normal limits. Affect congruent, mood anxious and depressed. Thoughts linear, logical, no signs of hallucinations or delusions. Client Response/Progress/Benefit: [] Pt participated during small group discussions. Attentive during psychoeducation about defense mechanisms. Showed engagement during small group discussions and helped group identify which defense mechanisms were maladaptive, adaptive, or ?somewhere in the phillips.? Pt worked with small group on identifying how each defense mechanism can impact mental health and gave examples. ?Seemed to benefit from gaining awareness about the different defense mechanisms. Pt to continue IOP tx to prevent decompensation, stabilize mood, increase healthy coping, and improve functioning. Narrative Note: []
--- NOTE | 2024-01-01 11:10 | BH.SGPN.GN ---
Behaviors/Verbalizations/Mental Status: []Pt alert and oriented, casually dressed and groomed. Eye contact good. Motor activity appropriate. Speech within normal limits. Affect congruent, mood euthymic. Thoughts linear, logical, no signs of hallucinations or delusions. Client Response/Progress/Benefit: []Pt responded well to session, participating in activity and small group discussion. Group reviewed the rest of the defense mechanisms and discussed how these are adaptive, maladaptive, or somewhere in the phillips. Pt participated in the experiential activity which encouraged pts to draw a castle that portrayed their different defense mechanisms. Pt's defense mechanisms included projection, anticipation, displacement, suppression, and sublimation. Pt shared wanting to work on her projection as pt feels it is maladaptive and on her self-discipline that can go ?too far.? Pt listened to captain airline pilot teach different skills to help pt?s cope with or change their defense mechanisms. Pt appeared to benefit from gaining insight to the different defense mechanisms and learning coping skills. Pt will continue IOP tx to prevent decompensation, improve daily functioning, and increase distress tolerance skills. Narrative Note: []
--- NOTE | 2024-01-01 14:41 | BH.MDN_ITS ---
Multi-Disciplinary Note Note 60-min Individual: Time Started:: 12:00 Date: 01/01/24 Purpose of session/treatment goals addressed:: To work on distress tolerance skills and to combat distorted thought patterns. Eye Contact:: Fair Motor Activity:: Restless Appearance:: Neat Speech:: Appropriate and Tangential (at times) Mood:: Euthymic and Anxious Affect:: Congruent Thoughts:: Linear, Logical and No evidence of hallucinations/delusions noted Staff Interventions:: thought challenging, CBT techniques, mindfulness skills, strengths perspective and taught coping skills (distress tolerance and dialectical thinking) Client Response:: Pt responded well to session, open to meeting with therapist. Pt shared she is in a much better place today than she was on Thursday. Pt admits that she was highly irritable that day and pt feels it was due to an external stressor that pt had been ruminating on paired with being asked if she was okay by [facility] staff. Pt shared that I know that is you guys doing your job, but my mom never let me be alone to process my feelings. This is a trigger for pt and pt stated when someone wants to talk to her about her feelings, she shuts down more. Pt receptive to discussion of riding the wave with emotions and avoiding things that retrigger strong feelings. However, pt was also encouraged to practice some opposite action as shutting down and avoiding positive interactions with others can also reinforce negative thoughts and strong emotions. Pt shared she is feeling less tired and she believes taking the medication at a different time has been helpful. Pt also reported that she feels less negative about herself today as well after engaging in some of her spiritual practices last night. Pt also meet with her outpatient therapist yesterday and this was beneficial. Pt encouraged to practice dialectical th inking over the weekend and to continue using mindfulness skills. Risks/Concerns:: Pt denies any active SI, plan, or intent as of 01/01/24. Pt denies any self-harm. Progress Toward Goals/Plan:: Progress noted in pt's consistent attendance and her improved engagement today. Pt reports benefitting from getting peer p erspective and she feels she is learning valuable skills. Pt's symptoms of depression, anxiety, and irritability are ongoing, but pt feels less irritable and depressed today. Pt has been benefitting from her spiritual practices which she did yesterday and this improved her mood. Pt will continue IOP tx to promote mood stability, increase distress tolerance, and improve daily functioning. Time Stopped:: 13:00
--- NOTE | 2024-01-04 09:00 | BH.SGPN.GN ---
Behaviors/Verbalizations/Mental Status: [] Eye contact is good. Motor activity is appropriate. Appearance is casual. Speech is Appropriate. Mood is anxious. Affect is congruent. Thoughts are linear and logical. No evidence of psychosis. Reviewed daily check in sheet and no reports of suicidal ideations or intent. Client Response/Progress/Benefit: [] Pt was an active participant in group discussions. Attentive. Daily symptom tracker notes 2/5 for anxiety and 1/5 for depression. ? I think my medications are starting to work?. Increase motivation and energy in the past few days. Hopeful and future-oriented about her mental health. Looking into equine therapy which she believes will be beneficial. Progress noted. Benefited from group support, encouragement, and feedback. Will continue in IOP to prevent decompensation/re-admission to psych unit, stabilize mood, and improve functioning. Narrative Note: []
--- NOTE | 2024-01-04 10:10 | BH.SGPN.GN ---
Behaviors/Verbalizations/Mental Status: [] Client alert and oriented, casually dressed and groomed. Eye contact good. Motor activity appropriate. Speech within normal limits. Affect congruent, mood euthymic. Thoughts linear, logical, no signs of hallucinations or delusions. Client Response/Progress/Benefit: [] Client responded well to session, contributing to discussion and engaged during the activity. Group identified the benefits of change which included: better mental health, increased confidence, and improved relationships. Worked with the group to identify barriers to change, which included: uncomfortable emotions such as anxiety, lack of motivation,fear of failure, disappointing others, and loss of momentum.Client participated along with group in activity where they identified and discussed the emotions related to change. Client discussed how negative emotions can push you to make meaningful change. Benefited from increased awareness and understanding of emotions, benefits, and barriers related to change. Will continue IOP tx to continue to increase self care and develop healthy thought patterns. Narrative Note: []
--- NOTE | 2024-01-06 09:05 | BH.SGPN.GN ---
Behaviors/Verbalizations/Mental Status: [] ?Pt alert and oriented, casually dressed and groomed. Eye contact good. Motor activity appropriate. Speech within normal limits. Affect congruent, mood content. Thoughts linear, logical, no signs of hallucinations or delusions. Reviewed pt?s symptom tracker, no risk for suicidal ideation, plan, or intent 01/06/24 Client Response/Progress/Benefit: []Pt receptive of session, engaged throughout and appearing to benefit from group support and encouragement. Identified current mental health wins as doing a home workout since she was unable to go to the gym rather than skipping altogether. Additional win noted as discussing with her advisor the possibility of taking next semester off in order to focus more on her mental health. Noted that this prospect has aided in reducing overall stress levels. Current stressor noted as struggling with nighttime anxiety last night but did identify several skill she used to cope. Benefited from group supportive feedback, encouragement, and support. Recommended continued IOP tx to prevent decompensation, improve mood stability, and promote skill application. Narrative Note: []
--- NOTE | 2024-01-06 10:15 | BH.SGPN.GN ---
Behaviors/Verbalizations/Mental Status: []Pt alert and oriented, casually dressed and groomed. Eye contact good. Motor activity appropriate. Speech within normal limits. Affect full, mood euthymic. Thoughts linear, logical, no signs of hallucinations or delusions. Client Response/Progress/Benefit: []Pt participated in group discussion. Group worked together to identify benefits of healthy relationships which included encouragement, motivation, longer lifespan, connectedness and trust. Group identified factors that lead to unhealthy relationships which included low self-esteem, trauma, use of unhealthy skills, parent's negative relationship growing up, and co-dependence. Pt reports she has entered unhealthy relationships because it's what I thought was normal and because pt did not know she was getting lied to. Benefited from increased insight and awareness of benefits of healthy relationships and factors that contribute to unhealthy relationships. Will continue in IOP to promote mood stability, increase distress tolerance skills, and improve daily functioning. Narrative Note: []
--- NOTE | 2024-01-06 11:15 | BH.SGPN.GN ---
Behaviors/Verbalizations/Mental Status: [] Pt alert and oriented, casually dressed and groomed. Eye contact fair. Motor activity appropriate. Speech within normal limits. Affect congruent, mood euthymic, Thoughts linear, logical, no signs of hallucinations or delusions Client Response/Progress/Benefit: [] Client responded well to session, engaged and taking notes throughout. Worked with group to connect components of the experiential activity with characteristics of healthy and unhealthy relationships. Attentive during psychoeducation about characteristics of healthy, unhealthy, and abusive relationships. Client reported she would like to continue to improve with communication, honesty, validating own emotions, and trust in relationship. Appeared to benefit from identifying current healthy relationship attributes and an area client wants to work on to build healthier relationships. Client to continue IOP to challenge distortions, improve distress tolerance, and prevent decompensation.
--- NOTE | 2024-01-06 13:38 | BH.TPR ---
Treatment Plan Review Demographics Date of Admission:: 12/14/23 Date of Treatment Plan Review:: 01/06/24 Admitting Diagnoses:: Major depressive disorder, recurrent, severe without psychosis; PTSD; Skin excoriation disorder; Strong cluster B traits Current Diagnoses:: Major depressive disorder, recurrent, severe without psychosis; PTSD; Skin excoriation disorder; Strong cluster B traits Patient Status Patient's Response to Treatment:: Pt has responded well to session AEB consistently attending IOP and engaging in both individual and group therapy sessions. Pt consistently completes homework provided from individual counseling. Pt contributes during group discussions, takes notes, appears to listen to others, and engages in group activities. Pt's overall DSM-5 scores have decreased by 42% since admission. Pt has also been reducing her marijuana use and she reports no self-harm since admission. 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 Pt also endorses numerous negative thoughts of self and poor body image. Pt is worried that after IOP she will isolate and not have social supports to fall back on. Pt also reports difficulty with all or nothing thinking. Progress Problem #1: Problem Name:: Depression, worthlessness, negative self-talk, and passive SI. Status of Goals:: Objective 1-complete with ongoing work encouraged. Pt?s depression has decrease by 17% per the DSM-5. Pt?s anger has also decreased by 50% since admission. Pt reports medication and utilizing healthier boundaries have been helpful. Objective 2- in progress. Pt is doing well with reducing self-harming behaviors, but pt continues to have impulsive urges and mood dysregulation more consistently than pt hopes for. Team Recommendations:: Team recommends continued goals and objectives to reinforce skills and maintain gains made. Team recommends pt continue working on combating distortions, being more self-compassionate, and increasing social support. Problem #2: Problem Name:: Anxiety, PTSD, and panic. Status of Goals:: Objective 1- in progress. Pt is doing well with identifying coping skills that reinforce anxiety and she is actively trying to replace these. For example, pt is reducing her marijuana use with the goal of quitting. Pt can still benefit from increasing distress tolerance in response to negative automatic thoughts. Objective 2- not complete. Pt?s anxiety has not decreased since admission, but pt?s anxiety has not worsened. Pt does feel that she is benefitting from validating her PTSD and gaining calming skills. Team Recommendations:: Treatment team encourages pt to continue working on distress tolerance skills and delaying her responses before reacting. Pt also encouraged to practice self-validation and acceptance skills.
--- NOTE | 2024-01-08 09:05 | BH.SGPN.GN ---
Behaviors/Verbalizations/Mental Status: [] Eye contact is good. Motor activity is appropriate. Appearance is casual. Speech is Appropriate. Mood is depressed. Affect is congruent. Thoughts are linear and logical. No evidence of psychosis. Reviewed daily check in sheet and no reports of suicidal ideations or intent. Client Response/Progress/Benefit: [] Pt was an active participant in group discussions. Attentive. Daily symptom tracker notes / for depression. Pt reports migraines for the best several days which has impacted her sleep, focus, concentration, and overall mood. Increased irritability. Frustrated as she was recently feeling as if her mood was stabilizing. Feeling sluggish due to lack of sleep. She has spoken with support and currently is deciding on whether to take the semester off due to mental health and physical health issues. Able to reframe at times as in the past there was a medication that was effective, however insurance company is currently requiring her to ?fail? two others medication before they will approve. Benefited from group support, encouragement, and feedback. Will continue in IOP to maintain safety, prevent decompensation/re-admission to psych unit, and increase healthy coping. Narrative Note: []
--- NOTE | 2024-01-08 11:15 | BH.SGPN.GN ---
Behaviors/Verbalizations/Mental Status: []Eye contact is good. Motor activity is appropriate. Appearance is casual. Speech is Appropriate. Mood is anxious and euthymic. Affect is congruent. Thoughts are linear and logical. No evidence of psychosis. Client Response/Progress/Benefit: [] Pt was an engaged participant in group discussion and activity. Worked with group to identify strategies to help overcome barriers and obstacles to desired reality. Group developed strategies for the common barriers. Identified personal barriers to desired reality and choose one obstacle to work. Pt stated pt wants to work on barrier of minimizing her trauma by practicing self-validation and combatting distortions. Pt seemed to benefit from increased repertoire of healthy coping skills/strategies to overcome common barriers to moving forward. Pt is to continue IOP to promote mood stability, reduce negative self-talk, and increase distress tolerance skills. ? Narrative Note: []
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
--- NOTE | 2024-01-11 10:10 | BH.SGPN.GN ---
Behaviors/Verbalizations/Mental Status: []Patient was alert and oriented, casually dressed and groomed. Eye contact fair. motor activity congruent. speech within normal limits. Affect congruent, mood anxious. Thoughts linear, logical, no signs of hallucinations or delusion. Client Response/Progress/Benefit: []Pt participated in the group discussions AEB nodding and taking notes. Attentive during psychoeducation Goal Setting. Participated during the discussion on common barriers and pt identified some personal barriers as fear of failure and high expectations. Group also identified benefits of goals as sense of purpose, improved self-confidence, more motivation for other goals, and improved mental health. Pt identified personal benefits to goal setting. Benefited from increased awareness of mental health benefits of goals as well as psychoeducation on SMART goal criteria. Will continue in IOP to improve distress tolerance, decrease negative thought patterns, and prevent decompensation.
--- NOTE | 2024-01-11 11:15 | BH.SGPN.GN ---
Behaviors/Verbalizations/Mental Status: []Pt alert and oriented, casually dressed and groomed. Eye contact good. Motor activity appropriate. Speech within normal limits. Affect congruent, mood content. Thoughts linear, logical, no signs of hallucinations or delusions. Client Response/Progress/Benefit: [] Pt was engaged during discussion and willing to complete the worksheet challenging them to develop a personal SMART goal. Pt chose the goal of cleaning her dishes twice in the next week. Pt stated fatigue as a potential barrier. Identified solutions of opposite action and breaking the task down into smaller batches at a time. Benefited from this group by developing a short-term SMART goal related to mental health. Will continue IOP tx to increase consistent use of healthy coping skills, challenge distortions, and prevent decompensation. Narrative Note: []
--- NOTE | 2024-01-13 09:05 | BH.SGPN.GN ---
Behaviors/Verbalizations/Mental Status: [] Eye contact is good. Motor activity is restless. Appearance is casual. Speech is Appropriate. Mood is irritable. Affect is congruent. Thoughts are linear and logical. No evidence of psychosis. Reviewed daily check in sheet and no reports of suicidal ideations or intent. Client Response/Progress/Benefit: [] Pt was an active participant in group discussions. Attentive. ? I?m existing?. She reports several psychosocial stressors and medical issues which are impacting her mental health and functioning. ? Migraines all day?. Poor sleep. She is also contemplating taking a semester off college due to her struggles. She continues to engage in activities that offer distraction and benefits (choir, shaman) however frustrated that her recent progress has been impacted by things she perceives are our of her control. Benefited from group support, encouragement, and feedback. Will continue in IOP to maintain safety, prevent decompensation/re-admission to psych unit, and to stabilize mood. Narrative Note: []
--- NOTE | 2024-01-13 10:10 | BH.SGPN.GN ---
Behaviors/Verbalizations/Mental Status: [] Client alert and oriented, casually dressed and groomed. Eye contact fair. Motor activity appropriate. Speech within normal limits. Affect congruent, mood dysthymic. Thoughts linear, logical, no signs of hallucinations or delusions. Client Response/Progress/Benefit: [] Pt responded well to session AEB sharing and listening attentively to others. Group provided examples of benefits of having social support, including: validation, get assistance, and accountability. Pt also participated in group discussion regarding the barriers to accessing support identifying examples to include: negative thinking, lack of communication, and lack of trust. Pt participated in experiential activity illustrating the impact communication, boundaries, and patience play in creating healthy support systems. Pt appeared to benefit from increased knowledge of the benefits of social support and greater self-awareness. Pt to continue IOP to improve distress tolerance, increase consistent use of healthy coping skills, and prevent decompensation.
--- NOTE | 2024-01-13 11:15 | BH.SGPN.GN ---
Behaviors/Verbalizations/Mental Status: []Client alert and oriented, casually dressed and groomed. Eye contact good. Motor activity appropriate. Speech within normal limits. Affect congruent, mood euthymic. Thoughts linear, logical, no signs of hallucinations or delusions. Client Response/Progress/Benefit: [] Pt participated throughout AEB contributing to discussion, providing personal examples, and taking notes. Pt provided input during discussion on the types of support our supports can provide. Pt able to identify current support system and barriers that get in the way of using supports. Pt reported after identifying what type of supports pt receives, pt gained awareness that pt could benefit from more social support by saying yes to more social activities. Pt recognizes that ?I project and assume people hate me and that?s not necessarily true.? Pt seemed to benefit from identifying the type of support pt needs to work on improving. Pt recommended to continue IOP tx to promote mood stability, reduce negative thinking patterns, and improve daily functioning. Narrative Note: []
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
--- NOTE | 2024-01-15 10:13 | BH.SGPN.GN ---
Behaviors/Verbalizations/Mental Status: [] Eye contact is good. Motor activity is appropriate. Appearance is casual. Speech within normal limits. Mood is euthymic. Affect is congruent. Thoughts are linear and logical. No evidence of psychosis. Client Response/Progress/Benefit: [] Client was an active participant in group discussion and experiential activity. Attentive during psychoeducation on resilience. Participated in interactive discussion with peers on the definition of resilience and where it comes from. Group identified that resiliency can be impacted by; past experiences, upbringing, and current mental health state. Group also worked together to identify the benefits of being resilient and how it is related to mental health. Able to relate experiential activity of group juggle to topics of resilience. Worked well with peers in small group in which they identified factors that contribute to resilience. Benefited from increased awareness of resilience and the factors that contribute to building resilience. Will continue in IOP to prevent decompensation and increase emotional regulation skills. Narrative Note: []
--- NOTE | 2024-01-15 14:07 | BH.MDN_ITS ---
Multi-Disciplinary Note Note 60-min Individual: Time Started:: 11:35 Date: 01/15/24 Purpose of session/treatment goals addressed:: To work on goal #2 of pt's tx plan by discussing distress tolerance and acceptance skills. Eye Contact:: Fair Motor Activity:: Restless Appearance:: Casual Speech:: Appropriate and Tangential Mood:: Anxious Affect:: Constricted Thoughts:: Circular and No evidence of hallucinations/delusions noted Staff Interventions:: thought challenging, motivational interviewing, CBT techniques, strengths perspective and taught coping skills (acceptance skills) Client Response:: Pt responded well to session, open to meeting with therapist. Pt reports she is doing okay but she appears more on edge today than previous session. 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 Pt is both happy she made the decision because pt recognizes that I was not able to give it the attention the project needed. However, pt is also worried because without her PhD work, and soon without IOP, pt fears she will isolate. Pt is currently doing more social things through school which has been helping pt and she acknowledges that she could continue with those social events even when she is taking time off. Pt receptive to discussion of aftercare as well as challenging herself to not let her negative thoughts control her. Pt stated there is something I want to bring up but I've never told anyone. Pt shared she just admitted this to herself last night, and pt feels she needs to disclose it to therapist. Pt shared in addition to her skin picking, there are times pt eats her skin and consumes her blood. Pt stated she has a lot of shame with this behavior, so therapist normalized this and helped pt practice self-compassion. Pt was tearful and struggled with self- judgement, but she did well with gentle thought challenging and discussion on acceptance. Pt learned about necessary vs unnecessary suffering and how this could apply to pt's current situation. 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 Pt responded well to this technique as pt shared she has put herself through a lot of unnecessary suffering in her life. Pt r eported feeling better by the end of session. Risks/Concerns:: Pt denies any suicidal ideations, plan, or intent. Pt denies any thoughts of . Progress Toward Goals/Plan:: Progress noted in pt's consistent attendance and her improving mood. Pt has decided to take a semester off and pt feels both good and anxious about this. Pt is becoming more vulnerable during sessions AEB topics discussed today and pt is also becoming more open to using dialectical thinking. Pt will continue IOP tx to promote mood stability, increase distress tolerance, and increase self-compassion. Time Stopped:: 12:30
--- NOTE | 2024-01-18 09:05 | BH.SGPN.GN ---
Behaviors/Verbalizations/Mental Status: [] Eye contact is good. Motor activity is appropriate. Appearance is casual. Speech is Appropriate. Mood is depressed/irritable. Affect is congruent. Thoughts are linear and logical. No evidence of psychosis. Reviewed daily check in sheet and no reports of suicidal ideations. Client Response/Progress/Benefit: [] Pt was an active participant in group discussions. Very animated. Difficulty with emotion dysregulation during check-in. Daily symptom tracker notes 4/5 for anxiety and irritability as well as 2/.5 for self-harm urges. When frustrated became visibly upset and loud. Overwhelmed with an increase in physical pain (migraines, kidneys). Shared that she had a panic attack this AM and has not had very good sleep due to pain. Struggles to utilize skills as she feels overwhelmed and tired. She was able to engage in social events this weekend which provided some relief. Also able to remain connected to her spirituality which has been helpful. Limited progress. Regression noted with increase in physical pain. Benefited from group support, encouragement, and feedback. Will continue in IOP to maintain safety, prevent decompensation/re-admission to psych unit, and increase healthy coping. Narrative Note: []
--- NOTE | 2024-01-18 10:15 | BH.SGPN.GN ---
Behaviors/Verbalizations/Mental Status: [] Client alert and oriented, casually dressed and groomed. Eye contact good. Motor activity appropriate. Speech within normal limits. Affect congruent, mood euthymic. Thoughts linear, logical, no signs of hallucinations or delusions. Client Response/Progress/Benefit: [] Client was an active participant AEB contributing to discussion, taking notes, and engaging in group activity. Connected with the topic of pitfalls and listened to group discussion on barriers that prevent from choosing a healthier path to mental wellness. Group worked together to identify examples of personal pitfalls. Pt identified personal pitfalls to include: isolation, being impatient, physical health issues, and difficulty giving self mary. Client benefited from group as client learned to better identify potential barriers to improving mental health symptoms. Client will continue IOP tx to improve distress tolerance, challenge negative thoughts, and prevent decompensation.
--- NOTE | 2024-01-18 11:15 | BH.SGPN.GN ---
Behaviors/Verbalizations/Mental Status: []Client alert and oriented, casually dressed and groomed. Eye contact good. Motor activity appropriate. Speech within normal limits. Affect congruent, mood euthymic. Thoughts linear, logical, no signs of hallucinations or delusions. Client Response/Progress/Benefit: [] Pt receptive of session, engaged throughout AEB Pt actively listening and contributing to discussion as well as taking notes.? Pt participated in the experiential activity and did well to communicate ideas with peers and manage emotions. Pt attentive as group processed how the emotions and perspective of the group impacted the activity. Group worked together to identify different coping skills to help manage pitfalls. Pt identified pitfall they struggle with as not being able to ?jose j myself mary.? Pt plans to work on their pitfall by accepting flaws and that average is enough. Benefited from identifying personal pitfalls and strategies to overcome these pitfalls. Pt will continue IOP tx to reduce negative self-talk, improve daily functioning, and increase self-compassion. Narrative Note: []
--- NOTE | 2024-01-20 10:57 | BH.MDN_ITS ---
Multi-Disciplinary Note Note 60-min Individual: Time Started:: 09:00 Date: 01/20/24 Purpose of session/treatment goals addressed:: To help pt process current emotions and practice distress tolerance skills. Eye Contact:: Fair Motor Activity:: Restless (in a lot of physical pain so trembling at times.) Appearance:: Casual Speech:: Tangential and Other (loud do to pain. ) Mood:: Anxious, Irritable and Other (overwhelmed.) Affect:: Congruent (tearful) Thoughts:: Racing and No evidence of hallucinations/delusions noted Staff Interventions:: thought challenging, CBT techniques, mindfulness skills (practiced grounding skills with pt and used calming tone.) and other (emotional validation, self-compassion techniques, and thought challenging.) Client Response:: Pt entered session highly agitated and stressed. Pt was pacing and reported being in severe pain. Pt was sweating and breathing heavily, but she shared sitting down was more painful so she wanted to stay standing. Pt stated she is feeling very angry, panicked, and overwhelmed right now so she does not want to go home. Pt is not suicidal, but she fears that she will self- harm if she goes home, and pt has been trying to avoid self-harming. Several triggers occurred within the last 48 hours including a flare up of her interstitial cystitis that has been causing severe pain, finding out she does not qualify for medical leave, and having one of her medications be too expensive. Pt shared she is angry that her flare up occurred after pt finally stopped smoking marijuana because pt now sees how much the marijuana was helping. 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 Pt shared she does not qualify because you have to work 24 hours a week and on paper I work 20 but I really work like 80. Pt was becoming more agitated, so therapist utilized grounding techniques which pt benefitted from. Pt was able to name all the types of mushrooms she knew and this helped regulate her breathing and pain. Pt also benefitted from getting emotional validation and identifying what she could do today without jumping ahead. Pt was able to leave session and decided to go to the group room to continue practicing mindfulness skills. Pt has an appointment this afternoon with an [employer] advisor to talk more about FMLA. Risks/Concerns:: Pt admits to self-harming yesterday and pt reports fear that when she goes home she will self-harm. Pt denies suicidal ideations, plan, or intent to this therapist. Pt is overwhelmed but future-oriented. Pt's physical pain has exacerbated pt's depression, anger, self-harming urges, and anxiety. Progress Toward Goals/Plan:: Progress has been seen AEB by pt's consistent attendance and report of improving mood. However, pt presents to IOP today severely agitated, anxious, and in pain. Pt has received news about her medical FMLA that would significantly change pt's finances and ability to be independen t. Pt also had a flare up of her medical condition so pt is in extreme pain today. Pt was offered to go home and rest, but pt did not want to be alone. Pt was less agitated by the end of session. Pt will continue IOP tx to prevent further decompensation, improve distress tolerance skills, and improve self- compassion. Time Stopped:: 10:05
== END 2024-01-21 23:59 ==
LOC: BHIOP 08:05
PROVIDERS: PCP Family Medicine; Referring Provider Psychiatry & Neurology Psychiatry; Visit Provider Psychiatry & Neurology Psychiatry
DX: F33.2 Major depressive disorder, recurrent severe without psychotic features (principal); F43.10 Post-traumatic stress disorder, unspecified; F42.4 Excoriation (skin-picking) disorder; G89.29 Other chronic pain; Z79.899 Other long term (current) drug therapy
CPT/HCPCS: S9480; 90834; 90837; 90853

== ENCOUNTER 2024-01-22 07:58 | Outpatient (RCR) | payer OTHER, SELFPAY ==
[2024-01-22 00:16] VITALS: BP 155/74; PULSE 82
--- NOTE | 2024-01-22 09:05 | BH.SGPN.GN ---
Behaviors/Verbalizations/Mental Status: [] Eye contact is good. Motor activity is restless. Appearance is casual. Speech is Appropriate. Mood is irritable. Affect is congruent. Thoughts are linear and logical. No evidence of psychosis. Reviewed daily check in sheet and no reports of suicidal ideations or intent. Client Response/Progress/Benefit: [] Pt was an active participant in group discussion. Attentive. Reports feeling agitated, frustrated, and upset. Continues to have physical pain which is impacting her mental health as well as sleep. Chronic pain and migraine flare-ups in recent weeks which have significantly impacted her functioning and led to mental health decompensation. 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 Thursday I was freaking out. Regression noted. Limited benefit aside from group support and empathy. Will continue in IOP to prevent decompensation/re-admission to psych unit, stabilize mood, and increase healthy coping. Narrative Note: []
--- NOTE | 2024-01-22 10:16 | BH.SGPN.GN ---
Behaviors/Verbalizations/Mental Status: [] Eye contact is good. Motor activity is appropriate. Appearance is casual. Speech is Appropriate. Mood is anxious and depressed. Affect is congruent. Thoughts are linear and logical. No evidence of psychosis. Client Response/Progress/Benefit: [] Pt participated at times during group discussion. Engaged in group activity and attentive during psychoeducation. Along with peers, pt was able to identify barriers to taking action in their life. Identified several symptoms and stressors that pt feels are holding them back from progress such as perceived expectations of others and negative self-talk. Stated these things have kept pt from finding a healthy work/life balance or advocating for their needs. Benefited from increased self-awareness of obstacles. Will continue IOP tx to prevent decompensation, stabilize mood, and increase distress tolerance. Narrative Note: []
--- NOTE | 2024-01-22 11:10 | BH.SGPN.GN ---
Behaviors/Verbalizations/Mental Status: []Pt alert and oriented, casually dressed and groomed. Eye contact fair. Motor activity appropriate. Speech within normal limits. Affect constricted, mood dysthymic. Thoughts linear, logical, no signs of hallucinations or delusions. Client Response/Progress/Benefit: [] Pt responded well to session, taking notes and participating in worksheet discussion. Pt connected with the discussion on motion vs action steps, and this helped pt learn how to set goals differently. Pt set a goal to be kinder to self. Pt identified motion steps including reminding self how would treat others in similar situation, remembering mary doesn't have to be earned, and accepting that mistakes happen. Pt stated what will help take action is having an accountability bettye, writing positive affirmations on mirror, and listing all things she is successful at currently. Appeared to benefit from identifying a small goal to benefit mental health. Pt is to continue IOP tx to challenge distorted/negative thoughts, improve view of self, and prevent decompensation. Narrative Note: []
--- NOTE | 2024-01-25 09:00 | BH.SGPN.GN ---
Behaviors/Verbalizations/Mental Status: [] Eye contact is good. Motor activity is appropriate. Appearance is casual. Speech is loud at times. Mood is depressed and irritable. Affect is congruent. Thoughts are linear and logical. No evidence of psychosis. Reviewed daily check in sheet and no reports of suicidal ideations or intent. Client Response/Progress/Benefit: [] Pt was an active participated during group discussions. Attentive. Daily symptom tracker notes /5 for depression and anxiety. Difficulty with emotion regulation often raising her voice and swearing when frustrated. My parents are breaking my boundaries!. Focused on setting up a family session with her parents whom she has had no contact with for several months. She is angry with them regarding their roles in her involuntary psychiatric admission as well as past events in her child and teenage years. Overall her symptom have exacerbated in recent weeks due in large part to physical ailments (migraines, chronic inflammation disorder, poor sleep) which have led to relapse on marijuana, weight gain, and struggles with maintaining her school responsibilities. Frustrated and overwhelmed. Feels powerless. Regression noted mainly due to physical pain which has not responded to medications. Benefited from group support and encouragement. Will continue in IOP to prevent decompensation/re-admission to psych unit, stabilize mood, maintain safety, and increase healthy coping. Narrative Note: []
--- NOTE | 2024-01-25 10:15 | BH.SGPN.GN ---
Behaviors/Verbalizations/Mental Status: [] Eye contact is good. Motor activity is appropriate. Appearance is casual. Speech is Appropriate. Mood is anxious/irritable. Affect is congruent. Thoughts are linear and logical. No evidence of psychosis. Client Response/Progress/Benefit: [] Pt receptive to session AEB contributing to group discussion, as well as listening attentively to others, and taking notes. Worked with group to brainstorm the definition of stress, the positive and negative aspects of stress on physical and mental health as well as the impact of stress on performance, relationships, and mental health. Pt shared their top stressors to be: relationship with parents, finances, and college. Shared when feeling overwhelmed with stress pt tends to overeat, sleep, cut people off, and isolate . Benefited from increased awareness of positive and negative stress as well as how stress impact individuals. Will continue in IOP to maintain safety, prevent decompensation/re-admission to psych unit, stabilize mood, and increase healthy coping. Narrative Note: []
--- NOTE | 2024-01-25 11:15 | BH.SGPN.GN ---
Behaviors/Verbalizations/Mental Status: []Pt alert and oriented, casually dressed and groomed. Eye contact good. Motor activity appropriate. Speech within normal limits. Affect congruent, mood anxious. Thoughts linear, logical, no signs of hallucinations or delusions. Client Response/Progress/Benefit: [] Pt was an attentive and active participant in group discussions and experiential activity, doing well to regulate their emotions throughout the activity and work with peers. Attentive during psychoeducation on the 4 A's (Avoid, adapt, alter, accept) of coping with stress. Shared that they would benefit most from altering her approach with her parents as pt feels that her boundaries are still not being respected. Was able to identify the connection between the experiential activity and utilization of stress management skills. Benefited from increased awareness of stress management strategies. Pt will continue IOP tx to prevent decompensation, improve daily functioning, and increased distress tolerance skills. ?? Narrative Note: []
--- NOTE | 2024-01-27 10:15 | BH.SGPN.GN ---
Behaviors/Verbalizations/Mental Status: [] Eye contact is good. Motor activity is appropriate. Appearance is casual. Speech is Appropriate. Mood is anxious and content. Affect is congruent. Thoughts are linear and logical. No evidence of psychosis. Client Response/Progress/Benefit: [] Pt receptive to session AEB listening attentively to others and taking notes. Pt attentive and contributing throughout psychoeducation on the cognitive triangle and maintenance cycles. Pt engaged during group discussion reviewing the impact of daily activities and behaviors in either reinforcing unhealthy maintenance cycles and depression or assisting in reducing symptoms (?down? vs ?up? activities). Pt identified personal ?down? activities they engage in as: avoiding tasks, shutting down, and not doing hygiene routine. Attentive during discussion on Common ?Up? activities Pt identified theirs to include: hydrating, taking care of basic needs, and time with friends. Appeared to benefit from increased awareness of current behaviors and impact these have on mental health. Will continue IOP to improve mood stability, prevent decompensation, and reduce negative thinking patterns. ?? Narrative Note: []
--- NOTE | 2024-01-27 10:45 | BH.MDN_ITS ---
Multi-Disciplinary Note Note 60-min Individual: Time Started:: 09:05 Date: 01/27/24 Purpose of session/treatment goals addressed:: To work on distress tolerance skills and self-validation. Eye Contact:: Good and Fair Motor Activity:: Appropriate Appearance:: Neat and Casual Speech:: Appropriate Mood:: Anxious and Irritable Affect:: Constricted Thoughts:: Linear, Logical and No evidence of hallucinations/delusions noted Staff Interventions:: thought challenging, motivational interviewing, CBT techniques, mindfulness skills, discharge planning and strengths perspective Client Response:: Pt responded well to session, open to meeting with rigo lipscomb. Pt entered session expressing frustration about the election. Pt appeared to benefit from verbal processing of her emotions about the election. Pt stated she could not sleep last night because of this, so pt began writing a list of things that pt wants to address in family therapy. Pt wanted to have a family session at [facility], but pt understands that for the family session pt needs, [facility] would not be an appropriate place. Pt receptive to setting up a family with her outpatient therapist as pt can continue to process it after the family session. Pt also receptive to the idea of having a session first with her mother instead of both of her parents. Pt identified the following things to be addressed: her memory of showering with her father, memories of not having bodily autonomy, feeling like she has not privacy and trust from her parents, and the lack of meaningful communication with her parents. Pt shared writing out all the things she wants to address was very helpful in her process of self- validating. Pt also reported benefitting from processing how she wants to address her parents in the future and pt was encouraged to think about what would need to change in order for pt's relationship to improve with her parents. Pt also had question about medication today and pt was put on the list to see Dr. Montemayor next week. Risks/Concerns:: Pt denies any suicidal ideations, plan, or intent. Pt denies any thoughts of . Progress Toward Goals/Plan:: Progress noted compared to last week, pt re ports her pain has decreased and she is less agitated. Pt is still experiencing anxiety and irritability as well as PTSD symptoms. Pt reports her relationship with her parents and her unresolved trauma continue to be her biggest stressors. Pt receptive to getting family counseling with her outpatient therapist who knows therapist best and can follow pt to process ongoing family dynamics. Pt will continue IOP tx to promote mood stability, increase distress tolerance, and improve self-compassion. Time Stopped:: 10:15
--- NOTE | 2024-01-27 11:15 | BH.SGPN.GN ---
Behaviors/Verbalizations/Mental Status: []Eye contact is fair. Motor activity is appropriate. Appearance is casual. Speech is Appropriate. Mood is dysthymic. Affect is constricted. Thoughts are linear and logical. No evidence of psychosis. Client Response/Progress/Benefit: [] Pt responded well to session, attentive and engaged in group discussions and activity. Actively engaged in continued discussion about up activities and down activities. Active participant as group discussed values and the benefits that knowing one's values can have on one's mental health. Pt completed personal cognitive triangle negative loop. Pt set a goal to adjust her expectations for body movement when in pain. Benefited from increased awareness of their personal values and how incorporating their values into behavioral activation goals can positive impact mental health. Will continue in IOP to challenge negative/distorted thoughts, increase consistent use of healthy coping skills, and prevent decompensation.
--- NOTE | 2024-01-29 09:05 | BH.SGPN.GN ---
Behaviors/Verbalizations/Mental Status: [] Pt alert and oriented, casually dressed and groomed. Eye contact good. Motor activity appropriate. Speech within normal limits. Affect congruent, mood dysthymic. Thoughts linear, logical, no signs of hallucinations or delusions. Reviewed pt?s symptom tracker, no risk for suicidal ideation, plan, or intent 01/29/24 Client Response/Progress/Benefit: []Pt was an active participant in group discussions. Attentive. Able to identify mental health wins including challenging herself to use creative problem solving skills to order herself a treadmill given recent difficulties in going to the gym. Additional win noted as continuing to prioritize self-care despite increased physical pain sx. Pt described difficulties with doing so when in pain and is proud of herself for continuing to work on her mental health while also being self-compassionate regarding pain issues. Benefited from group support, encouragement, and feedback. Will continue in IOP to prevent decompensation, improve mood stability, and increase perspective challenging. Narrative Note: []
--- NOTE | 2024-01-29 10:10 | BH.SGPN.GN ---
Behaviors/Verbalizations/Mental Status: [] Eye contact is good. Motor activity is appropriate. Appearance is casual. Speech is Appropriate. Mood is depressed/irritable. Affect is constricted. Thoughts are linear and logical. No evidence of psychosis Client Response/Progress/Benefit: [] Pt participated at time in group discussions. Attentive during psychoeducation. Contributed at times during interactive discussions in which peers attempted to define crisis. Group identified crisis examples. Group also worked together to identify warning signs and unhealthy responses to crisis which included shutting down, isolation, avoidance, over-thinking, disordered eating, and self-harm. Benefited from increased understanding of crisis and awareness of personal responses to crisis. Pt will continue IOP tx to maintain safety, prevent decompensation/re-admission to psych unit, stabilize mood, and increase functioning. Narrative Note: []
--- NOTE | 2024-01-29 11:12 | BH.SGPN.GN ---
Behaviors/Verbalizations/Mental Status: []Pt alert and oriented, appropriate grooming/appearance. Eye contact fair. Motor activity appropriate. Speech within normal limits. Affect congruent, mood dysthymic. Thoughts linear, logical, no signs of hallucinations or delusions. Client Response/Progress/Benefit: []Pt was an active participant in group discussions. Attentive during psychoeducation. In small group pt along with peers developed an active plan for their crisis warning signs. Pt identified three crisis warning signs as well as an action plan for each. One crisis warning sign was becoming less physically active. Pt identified strategies to help with this such as: set small movement goals, leave ho use at least once a day, work out at home while watching a tv show, and do body movement that doesn't push physical ability.?Benefited from increased awareness of crisis warning signs and by developing crisis intervention strategies. Will continue in IOP to improve distress tolerance, challenge negative thoughts, and prevent decompensation.
--- NOTE | 2024-02-01 09:00 | BH.SGPN.GN ---
Behaviors/Verbalizations/Mental Status: [] Eye contact is good. Motor activity is restless. Appearance is casual. Speech is Appropriate. Mood is irritable. Affect is congruent. Thoughts are linear and logical. No evidence of psychosis. Reviewed daily check in sheet and no reports of suicidal ideations or intent. Client Response/Progress/Benefit: [] Pt was an active participant. Daily symptom tracker notes 2/5 for depression and irritability. ? I was doing fine until I was triggered this morning? Elaborated on what triggered her. Often needs redirected as she continues to overshare her trauma history in group which can trigger others. Frustrated and overwhelmed with many areas of her life, however her medical complications have reduced recently which has provided hope of progress. Minimal progress noted. Benefited from peers challenging her cognitive distortions and overgeneralizations. Will continue in IOP to maintain safety, prevent decompensation/re-admission to psych unit, and increase healthy coping. Narrative Note: []
--- NOTE | 2024-02-01 10:15 | BH.SGPN.GN ---
Behaviors/Verbalizations/Mental Status: []Client alert and oriented, casually dressed and groomed. Eye contact good. Motor activity appropriate. Speech within normal limits. Affect congruent, mood content. Thoughts linear, logical, no signs of hallucinations or delusions. Client Response/Progress/Benefit: [] Pt responded well to session AEB actively participating throughout group. Pt was attentive throughout group activity discussing famous individuals and how they overcame failure to be successful. Pt helped group identify how fear of failure can impact mental health and relationships. Pt personally identified it leads to pt to try and take on too much or not give themselves a break. Participated in experiential activity, working with group members to problem solve. Appeared to benefit from increased knowledge of what causes fear of failure and how it impacts people. Will continue IOP tx to prevent decompensation, improve mood stability, and encourage continued skill application. Narrative Note: []
--- NOTE | 2024-02-01 11:15 | BH.SGPN.GN ---
Behaviors/Verbalizations/Mental Status: []Pt alert and oriented, neatly dressed and groomed. Eye contact good. Motor activity appropriate. Speech within normal limits. Affect congruent, mood euthymic. Thoughts linear, logical, no signs of hallucinations or delusions. Client Response/Progress/Benefit: [] Pt responded well to session, engaged in the experiential activity and attentive throughout group processing. Pt reported fear of failure has kept Pt from traveling, being vulnerable, and finding a significant other. Pt completed fear of failure worksheet and was able to identify thoughts and behaviors that reinforce personal fear of failure including unhealthy habits, unrealistic expectations of self, and comparing herself to the old version of herself. Pt participated in small group discussion regarding strategies to overcome fear of failure. Identified wanting to work on accepting failures/mistakes as inevitable and not judging her character based on those mistakes. Appeared to benefit from increased knowledge of strategies to combat fear of failure and gaining self-awareness. Pt will continue IOP tx to reduce negative thinking patterns, improve daily functioning, and gain healthy coping skills. Narrative Note: []
--- NOTE | 2024-02-03 10:15 | BH.SGPN.GN ---
Behaviors/Verbalizations/Mental Status: []Eye contact is good. Motor activity is appropriate. Appearance is neat. Speech is Appropriate. Mood is calm. Affect is congruent. Thoughts are linear and logical. No evidence of psychosis. Client Response/Progress/Benefit: [] Pt was engaged and an active participant throughout, providing input and taking notes. Participated in an interactive discussion on defining anxiety and identifying cognitive and physiological symptoms of anxiety. The group discussed the role of anxiety on isolation, avoidance, and who this emotion impacts their ability to start and complete activities/goals. Pt identified their physical/physiological signs of anxiety (i.e. tingling, racing heart, and sweating). Pt identified safety behaviors (i,e smoking, sleeping, avoidance, and self-harming.) Benefited from increased awareness and insight on anxiety and its impact. Will continue in IOP to improve daily functioning, increase distress tolerance skills, and improve self-compassion. Narrative Note: []
--- NOTE | 2024-02-03 11:10 | BH.SGPN.GN ---
Behaviors/Verbalizations/Mental Status: [] Pt alert and oriented, casually dressed and groomed. Eye contact fair. Motor activity appropriate. Speech within normal limits. Affect congruent, mood dysthymic. Thoughts linear, logical, no signs of hallucinations or delusions. Client Response/Progress/Benefit: [] Pt was an active participant AEB pt providing input and listening attentively to peers. Attentive during psychoeducation on mindfulness coping skills and their impact on reducing anxiety and improving overall mental health wellness. Group was able to identify self-soothing and mind-based coping skills which included: 5-senses, meditation, deep breathing, TIPP, thought challenging, and progressive muscle relaxation. Pt also participated with peers in practicing mindfulness skills in session including deep breathing. Pt would like to work on using grounding and breathing to manage anxiety. Appeared to benefit from increasing repertoire of anxiety reduction skills. Pt will continue in IOP tx to improve distress tolerance, increase use of healthy coping skills, and prevent decompensation.
--- NOTE | 2024-02-03 11:18 | BH.MDN ---
Multi-Disciplinary Note Note 45-min Individual: Time Started:: 09:10 Date: 02/03/24 Purpose of session/treatment goals addressed:: To work on pt's aftercare plan and to review strategies for success. Eye Contact:: Good and Fair Motor Activity:: Appropriate Appearance:: Neat Speech:: Appropriate Mood:: Euthymic and Anxious Affect:: Congruent Thoughts:: Linear, Logical and No evidence of hallucinations/delusions noted Staff Interventions:: thought challenging, CBT techniques, mindfulness skills, discharge planning and strengths perspective Client Response:: Pt responded well to session, open to meeting with therapist. Pt reports she is feeling better and feels like she is using her coping skills. Pt spoke with her outpatient therapist and she agreed to do family therapy with pt in the future when pt is ready. Pt stated she is still anxious and frustrated about her situation with her parents, but pt is trying to remind herself that now is not then and that she has rights and boundaries she can reinforce. Pt is anxious about her upcoming trip because she will be without marijuana for a few days and currently that has been what is helping pt manage her chronic pain the most. Talked about other things in pt's control she can use to manage anxiety and pain at the conference. Pt will continue using her meditation apps, try and eat foods that do not trigger flare ups, and make sure to spend time recharging her social battery. 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 Pt shared she advocated for herself so she was not completely out of the social and academic [place]. 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 Pt is anxious to leave [facility] but she feel ready. Risks/Concerns:: Pt denies any SI, plan, or intent as of 02/03/24. 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 Pt is established with outpatient counseling and psychiatry. Pt is working on getting funding through her school to help pay for IOP aftercare. Pt is also encouraged to continue practicing self-talk, grounding skills, and dialectical thinking. Time Stopped:: 10:00
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
--- NOTE | 2024-02-05 09:00 | BH.SGPN.GN ---
Behaviors/Verbalizations/Mental Status: [] Client alert and oriented, casual appearance. Eye contact good. Motor activity appropriate. Speech within normal limits. Affect congruent, mood anxious and dysthymic. Thoughts linear, logical, no signs of hallucinations or delusions. Reviewed client's symptom tracker, no risk for suicidal ideation, plan, or intent. Client Response/Progress/Benefit: [] Client responded well to session AEB listening to others and sharing thoughts/feelings. Client reported current stressor as having to go out of state for work and she won't have her marijuana to help with physical pain. Client stated she is worried how she is going to manage her physical pain since other medications haven't been successful for her and marijuana is not legal in the state she is going. Client stated additional stressor as finding a interesting growth on her leg and is worried it's something concerning. Client noted mental health positive as reaching out to her friend to talk about her stressors instead of trying to deal with it on her own. Client appeared to benefit from support from peers. Will continue IOP tx to improve distress tolerance, increase consistent use of healthy coping skills, and prevent decompensation.
--- NOTE | 2024-02-05 10:15 | BH.SGPN.GN ---
Behaviors/Verbalizations/Mental Status: [] Eye contact is good. Motor activity is appropriate. Appearance is casual. Speech is Appropriate. Mood is euthymic. Affect is congruent. Thoughts are linear and logical. No evidence of psychosis. Client Response/Progress/Benefit: [] Pt was an active participant during group discussions and group activities. This portion of group was very psychoeducation heavy and pt was attentive during psychoeducation. Engaged during activity in which they identified which type of foods (i.e. carbs, sugar, salt, fast food, caffeine, etc) they seek out when sad, tired, angry, stressed, anxious, etc. Pt was able to identify the impact that certain foods have on their mental health through group example which was beneficial. Benefited from increased awareness of the connection between nutrition and mental health. Will continue in IOP to prevent decompensation/re-admission to psych unit, stabilize mood, and improve healthy coping strategies. Narrative Note: []
--- NOTE | 2024-02-08 09:04 | BH.AFTERPLAN ---
Aftercare Plan Demographics Treatment End Date:: 02/08/24 Psychiatrist:: Galilea Montemayor Psychiatrist Office #:: [phone] [facility]/IOP Therapist:: Suzan Santos Therapist Phone #:: [phone] Medications Home Medications L norgest/E estradiol-E estrad 0.15 mg-30 mcg (84)/10 mcg(7) tabs,3mos (Amethia) 1 tab PO DAILY 01/14/23 MEDICAL MARIJUANA 01/14/23 fremanezumab-vfrm 225 mg/1.5 mL subcutaneous auto-injector (Ajovy) 225 mg subcut QMONTH PRN migraine headache 01/14/23 lamotrigine 100 mg tablet (Lamictal) 100 mg PO DAILY 30 days #30 tabs 01/13/24 memantine 10 mg tablet 10 mg PO BID 30 days #60 tabs 01/13/24 duloxetine 30 mg capsule,delayed release (Cymbalta) 60 mg (2 x 30 mg) PO DAILY 30 days #60 caps 02/03/24 hydroxyzine pamoate 50 mg capsule 50 mg PO Q8H PRN anxiety 30 days #90 caps 02/03/24 trazodone 50 mg tablet 50 mg PO QHS 30 days #30 tabs 02/03/24 Plan Details Progress/Aftercare Plan Details:: Rosy has responded well to treatment as evidenced by Rosy consistently attending IOP sessions and her reduction of DSM-5 scores since admission. Rosy was always attentive and receptive to learning during group and individual sessions. Rosy actively applied coping skills outside of IOP and reports overall her mood is improved and she is functioning better than she was several months ago. Rosy?s overall symptom reduction is 44% since admission with anger decreasing by 75%, depression decreasing by 50%, self-harm urges decreasing by 67%, and unpleasant thoughts and images/feeling driven to perform certain behaviors decreased by 57%. Rosy has increased self-compassion and faced many hard things. Most importantly, Rosy has become more vulnerable, flexible, and confident in her abilities. Strategies for Success:: 1. Opposite action! Continue to break that cycle of anxiety, guilt, and depression by not letting emotions be the only drivers of your bus. 2. Remember that thoughts are thoughts NOT facts! You have power in if you give thoughts the time of day or not. 3. self-care! You deserve to take time for you and you also deserve to face the not so fun self-care like advocating for yourself, self-compassion, and expressing boundaries. 4. Self-compassion! You are human and you will make a mistake?BUT that doesn?t mean you are a failure or not good enough. Remember there are no bad parts! 5. Continue to practice acceptance and remember acceptance means loving this version of you 6. Practice positive self-talk and keep track of your wins. 7. Remember progress isn?t linear! You may have a setback or bump in the road, but that doesn?t mean you?ve lost all progress. 8. self-reflection and self-awareness. 9. Be understanding with yourself and try to see the whole picture, not just the snapshot. 10. Live in the tamez!! Appointments Appointments/Referrals to Other Services:: 1. Follow up with IOP aftercare starting on 02/25/24 from 2:00-3:30pm for 8 weeks. 2. Follow up with Dr. Davey for medication management. First appointment is in March 2024. 3. Follow up with your outpatient therapist weekly on .
--- NOTE | 2024-02-08 10:58 | BH.DS_ITS ---
Discharge Summary Demographics Date of Admission:: 12/14/23 Discharge Date: 02/08/24 Presenting Problems at Admission:: Pt is a 28-year-old female with a history of MDD, PTSD, JAILYN, and OCD who was referred to [facility] following a hospitalization in September at [facility] for suicidal ideations. Pt reports mental health decompensation for months. Pt endorses a depressed mood, severe irritability, increased appetite with weight gain, isolation, low motivation, poor sleep, lack of energy, anhedonia, and lack of concentration. Pt reports her symptoms have been worse since she started having repressed memories surface from her childhood. Pt is not speaking with her parents because of the memories pt has been having. Pt endorses restlessness, anxiety, skin-picking, avoidance, passive thoughts of , and low distress tolerance which impacts pt's ability to regulate stress/emotions. 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 Pt's social relationships are also struggling due to her mental health symptoms. Discharge Diagnoses:: Major depressive disorder, recurrent, severe without psychosis; PTSD; Skin excoriation disorder; Strong cluster B traits Reason for Discharge:: Pt has accomplished her tx goals AEB her reduction of DMS-5 symptoms, his self-report of improving mood and functioning. Pt no longer meets criteria for [facility] level of care and will discharge to outpatient counseling an [facility] aftercare. Treatment Progress During Treatment & Response: Pt has responded well to treatment as evidenced by Pt consistently attending IOP sessions and her reduction of DSM-5 scores since admission. Pt was always attentive and receptive to learning during group and individual sessions. Pt actively applied coping skills outside of IOP and reports overall her mood is improved and she is functioning better than she was several months ago. Pt?s overall symptom reduction is 44% since admission with anger decreasing by 75%, depression decreasing by 50%, self-harm urges decreasing by 67%, and unpleasant thoughts and images/feeling driven to perform certain behaviors decreased by 57%. Pt has increased self-compassion and faced many hard things. Most importantly, Pt has become more vulnerable, flexible, and confident in her abilities. Issues Still to be Addressed:: Building support, negative core beliefs, anger and self-hatred, distress tolerance, and self-compassion. Discharge Recommendations/Instructions:: Pt is recommended to continue with outpatient counseling with [facility] each week. Pt has her initial appointment with Dr. Davey for medication management on 04/05/24. Pt will begin IOP aftercare on 02/25/24. Discharge Handout
--- NOTE | 2024-02-08 11:05 | BH.MDN_ITS ---
Multi-Disciplinary Note Note 60-min Individual: Time Started:: 09:30 Date: 02/08/24 Purpose of session/treatment goals addressed:: To review last day strategies, progress, and plan. Another goal was to co-regulate pt's emotional distress. Eye Contact:: Good and Fair Motor Activity:: Restless Appearance:: Casual Speech:: Tangential, Rapid and Other (loud) Mood:: Other (angry ) Affect:: Constricted Thoughts:: Racing, Other (negatively ruminating about her body ) and No evidence of hallucinations/delusions noted Client Response:: Pt entered session highly aggravated and reported she was feeling enraged today. Pt stated she was in process group and thinking I don't want to sit here and pretend that I'm fine and it's been 8 weeks and I still hate myself. Pt shared triggers to this change in mood compared to last week which included not having low scores on the daily symptom tracker and going on her trip without having marijuana. Pt also reports feeling lonely, especially with the holidays coming up and pt graduating from [facility]. Pt expressed I hate how I look, I'm mortified. Pt feels that the universe doesn't want me to be happy. Pt has had moments during treatment when she experiences higher levels of anger and then pt becomes cynical with herself and the world. Although pt recognizes this, pt admits that it is hard to challenge her perspective when she feels that way. Therapist gave pt time and space to vent her frustrations and express her perspective. Pt initially reluctant to therapist's attempt to thought challenge and use of dialectical thinking. Pt shared that when she uses self-compassion she feels like I'm lying to myself and it makes me feel quinton pid. Pt was tearful and used some deep breathing which appeared to help pt. Pt was still skeptical about thought challenging from therapist, but after continuing to practice dialectical thinking, pt did become less aggravated. Discussed how two things can be true, progress can happen slowly and that is unfair, and it can get better. Pt appeared to benefit from discussion of realistic self-compassion and progress with self-acceptance. 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 Pt will also attend [facility] aftercare and pt reminded that she will have a community here. Pt asked to leave IOP early today as pt was worried she would be too agitated in group. Risks/Concerns:: Pt reports having self-harm urges, but no active SI, plan or intent reported. Pt is future oriented (talking about her trip and IOP aftercare). Pt negative ruminating about herself and her progress, but pt is not a threat to herself or others. Progress Toward Goals/Plan:: Pt presented with worse symptoms of anger, depression, and anxiety today. However, pt had been consistently demonstrating progress and had planned for today to be her last day. Pt completed her DSM-5 on Thursday last week and her symptoms had reduced by 44% since admission with anger reducing by 75%. Pt reminded of this progress and to try and give herself credit. Pt will begin IOP aftercare on 02/25/24 due to pt's trip and Thanksgiving. Pt will also continue with her outpatient counseling and psychiatr y. Time Stopped:: 10:30
== END 2024-02-08 10:53 | disposition home or self-care (01) ==
LOC: BHIOP 07:58
PROVIDERS: PCP Family Medicine; Referring Provider Psychiatry & Neurology Psychiatry; Visit Provider Psychiatry & Neurology Psychiatry
DX: F33.1 Major depressive disorder, recurrent, moderate (principal); F43.10 Post-traumatic stress disorder, unspecified; F42.4 Excoriation (skin-picking) disorder; G89.29 Other chronic pain
CPT/HCPCS: S9480; 90834; 90837; 90853

== ENCOUNTER 2024-02-25 14:29 | Outpatient (RCR) | payer SELFPAY ==
--- NOTE | 2024-02-25 14:00 | BH.COMM ---
Communication Note Communication with Client Communication Note: Patient completed IOP and presents today to start relapse prevention group which meets once weekly (1.5 hours) for 8 weeks. Case discussed with Dr. White with plan to admit with dx of F33.2
--- NOTE | 2024-02-25 14:00 | BH.SGPN.GN ---
Behaviors/Verbalizations/Mental Status: []Pt alert and oriented, neatly dressed and groomed. Eye contact good. Motor activity appropriate. Speech within normal limits. Affect congruent, mood euthymic. Thoughts linear, logical, no signs of hallucinations or delusions. Client Response/Progress/Benefit: [] Pt responded well to session, attentive and providing input. Pt shared she did not see her psychiatrist or her therapist this week, but she is taking her medications. Pt reports using breath work, making a crisis plan, and advocating for herself to cope with stressors. With peers, pt discussed things that would sabotage one's mental health wellness and added it to the garden metaphor. Pt identified things pt personally does to sabotage as not using coping skills, not challenging negative thoughts, and not allowing herself to speak kindly to herself. Pt attentive during psychoeducation on ways to reduce self-sabotage and pt selected using breath work as the skill pt is going to use. Pt appeared to benefit from learning skills and gaining awareness of self-sabotaging behaviors. Pt will continue IOP aftercare to promote utilization of healthy coping skills to improve mood stability. Narrative Note: []
--- NOTE | 2024-02-25 14:34 | BH.MTP_ITS ---
Master Treatment Plan Patient Information Program Physician:: Dr. Galilea Montemayor Primary Therapist:: Suzan MCNALLY Psychiatric Diagnoses Psychiatric Diagnoses:: Major depressive disorder, recurrent, severe without psychosis; PTSD; Skin excoriation disorder; Strong cluster B traits Diagnosis Code(s):: F 33.2 Estimated LOS Estimated LOS (in weeks):: 8 Problem/Goal #1 Problem/Goal #1 Stated Goal:: client will maintain or see a reduction in symptoms AEB client score on the DSM 5 cross-cutting measure and improve client's daily functioning. Objectives Objective #1: Stated Objective: Client will continue to consistently apply healthy coping skills to maintain progress made in IOP tx. Interventions: Through group therapy, client will review warning signs and triggers as well as healthy coping skills learned in IOP tx to successfully maintain gains while transitioning into outpatient therapy. Discharge Criteria: Client will have accomplished this goal when client's score on the DSM-5 cross-cutting measure has maintained or reduced over a 8 week period. Target Date: 04/21/24 Review Date: 03/17/24 Status: open Objective #2: Stated Objective: Client will learn and utilize 2-3 maintenance strategies to prevent decompensation from original IOP DSM-5 scores. Interventions: Through group therapy, client will be provided with educ ation on healthy maintenance behaviors, relapse prevention techniques, and healthy coping strategies. Discharge Criteria: Client will have accomplished this goal when can report using at least 2 maintenance skills to prevent decompensation compared to original IOP DSM-5 scores Target Date: 04/21/24 Review Date: 03/17/24 Status: open
--- NOTE | 2024-03-03 14:00 | BH.SGPN.GN ---
Behaviors/Verbalizations/Mental Status: []Pt alert and oriented, casually dressed and groomed. Eye contact good. Motor activity appropriate. Speech within normal limits. Affect congruent, mood euthymic. Thoughts linear, logical, no signs of hallucinations or delusions. Client Response/Progress/Benefit: []Pt receptive of session, engaged throughout. Pt shared they have met with their outpatient provider since last session. Pt has been taking medications consistently and reports utilizing healthy coping skills outside of aftercare. These skills included: meditation, checking in with herself, and maintaining boundaries. ?Receptive of discussion on sitting with the uncomfortable and emotional urges. Pt contributed to the discussion of distress tolerance and how building distress tolerance can help improve mood stability and resilience. Pt wants to keep building distress tolerance by sitting in silence for at least 10 minutes before putting noise on. Pt seemed to benefit from support from peers and increasing understanding of distress tolerance. Will continue aftercare to reinforce healthy coping skills and improve daily functioning. Narrative Note: []
--- NOTE | 2024-03-17 14:00 | BH.SGPN.GN ---
Behaviors/Verbalizations/Mental Status: []Client alert and oriented, casually dressed and groomed. Eye contact good. Motor activity appropriate. Speech within normal limits. Affect congruent, mood euthymic and stressed. Thoughts linear, logical, no signs of hallucinations or delusions. Client Response/Progress/Benefit: [] Pt responded well to session AEB sharing and listening attentively to others. Pt reports following up with both therapy and psychiatry, but no appointments this week, and pt reports she is taking her medications consistently. Pt stated using meditation, self-care, and self-love strategies as primary coping skills used this past week. Pt participated in group discussion defining vulnerability, how and why we avoid it, and the benefits. Pt was an active participant and provided personal examples of being vulnerable and the positive things that came with this. Pt stated that pt would like to work on being vulnerable this week by continuing to cut down on her marijuana consumption. Will continue aftercare treatment to reinforce healthy coping skills and promote gains. Narrative Note: []
--- NOTE | 2024-03-17 16:39 | BH.TPR ---
Treatment Plan Review Demographics Date of Admission:: 02/25/24 Date of Treatment Plan Review:: 03/17/24 Admitting Diagnoses:: Major depressive disorder, recurrent, severe without psychosis; PTSD; Skin excoriation disorder; Strong cluster B traits Current Diagnoses:: Major depressive disorder, recurrent, severe without psychosis; PTSD; Skin excoriation disorder; Strong cluster B traits Progress Problem #1: Problem Name:: Pt will maintain or see a reduction in sx Team Recommendations:: Recommended client continue IOP aftercare group in addition to attending regular outpatient counseling in order to maintain gains. Pt also recommended to continue working on self-compassion, practice self-care, and engaging socially.
== END 2024-03-22 23:59 ==
LOC: BHOG 14:29
PROVIDERS: PCP Family Medicine; Referring Provider Psychiatry & Neurology Psychiatry; Visit Provider Psychiatry & Neurology Psychiatry
DX: F33.2 Major depressive disorder, recurrent severe without psychotic features (principal); F43.10 Post-traumatic stress disorder, unspecified; F42.4 Excoriation (skin-picking) disorder; Z79.899 Other long term (current) drug therapy
CPT/HCPCS: 90853

== ENCOUNTER 2024-03-24 07:11 | Outpatient (RCR) | payer SELFPAY ==
--- NOTE | 2024-03-24 14:00 | BH.SGPN.GN ---
Behaviors/Verbalizations/Mental Status: []Pt alert and oriented, casually dressed and groomed. Eye contact intense. Motor activity restless. Speech loud, intense, and angry. Affect congruent, mood angry. Thoughts linear, logical, no signs of hallucinations or delusions. Client Response/Progress/Benefit: []Pt reported during check-in that she is feeling like dog shit. Pt reported she just feels so angry and filled with rage. Pt seemed to mock the client's that checked in prior to her by stating she is getting angry when hearing other people in the group talk about how using certain skills is making me feel so much better. Pt stated using healthy skills is making me worse. Pt reported what do you say when I do everything to help myself but the skills are making me worse. Pt stated she is filled with so much rage and I don't understand why. Pt stated she had a 2 1/2 hour session earlier today with her outpatient counselor in which pt played manas's advocate the entire session. Pt reported she did stop smoking marijuana 2 weeks ago, but doesn't believe this is playing a role in her anger because she's quit before but didn't feel so rageful. Pt stated she had a shitty holiday and birthday. This telegraphic typewriter installer attempted to provide support about the challenges of the holidays. Pt reported she didn't spend holidays or birthday with her parents because of cutting them off. Another group member attempted to connect with the challenges of setting boundaries with parents and pt intensely and loudly responded No, I'm happy I didn't have to see my parents. This telegraphic typewriter installer was formulating thoughts on how to respond to client and she said this is exactly what my therapist was doing earlier, no one knows what to say to me that is going to help. Pt was increasingly appearing agitated and angry throughout her check-in. Pt was dismissive to another client, mocking certain group members reporting doing better, and was starting to create an emotionally unsafe environment. This telegraphic typewriter installer had to stop pt's check-in as pt did not seem to be in a place for feedback or support, and was increasingly becoming intense and angry in her sharing of thoughts. Pt left group shortly after her check-in without notifying any staff where she was going. This telegraphic typewriter installer notified other [facility] staff to reach out to pt to check-in and make sure she was feeling safe. Pt had made a comment about what's the point of going on if no healthy skills help me. See Suzan Santos's communication note for further information on what occurred after client left group.
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
--- NOTE | 2024-03-25 16:13 | BH.DS_ITS ---
Discharge Summary Demographics Date of Admission:: 02/25/24 Discharge Date: 03/25/24 Presenting Problems at Admission:: Pt admitted to [facility] due to depressed mood, severe irritability, increased appetite with weight gain, isolation, low motivation, poor sleep, lack of energy, anhedonia, and lack of concentration. Pt reports her symptoms have been worse since she started having repressed memories surface from her childhood. Pt is not speaking with her parents because of the memories pt has been having. Pt endorses restlessness, anxiety, skin-picking, avoidance, passive thoughts of , and low distress tolerance which impacts pt's ability to regulate stress/emotions. Pt admitted to Aftercare due to lack of support, maintenance with mood regulation, and decreasing marijuana use. Discharge Diagnoses:: F33.2 Major depressive disorder, recurrent, severe without psychosis; PTSD; Skin excoriation disorder; Strong cluster B traits Reason for Discharge:: Treatment team made decision to discharge pt from Aftercare program due to client's behavior during group session on 03/24/24. Client was extremely agitated during group session and created an emotionally unsafe environment and left the building without notifying or speaking to any staff members. See group note dated 03/24/24 for additional information. Director of [facility] spoke to client on the phone to explain reason for discharge from program. Treatment Progress During Treatment & Response: In the beginning sessions of Aftercare she had reporting use of healthy coping skills like meditation, self-care, and self- love strategies as primary coping skills. Client most recent session shared how she is not doing well, feeling extreme anger, and that no healthy coping skills make her feel better. Client reported difficulty with emotion regulation and reported not seeing a point to treatment if nothing helps her. Issues Still to be Addressed:: Client could benefit from distress tolerance, maintaining boundaries, thought challenge, and increasing consistent use of healthy coping skills. Discharge Recommendations/Instructions:: Pt is recommended to continue with outpatient counseling with Alexa each week. Pt has her initial appointment with Dr. Davey for medication management on 04/05/24. Discharge Handout
--- NOTE | 2024-03-30 15:47 | BH.COMM_ITS ---
Communication Note Communication with Client Communication Note: Treatment team met to discuss pt's behaviors during aftercare group on 03/24/24. Please refer to previous notes on 03/24/24 for further clarification. In summary pt became highly agitated with program therapist and peers. At times she was dismissive of staff and patients, mocked other patients, and overall created an emotionally unsafe environment. Client Technologies Specialist attempted numerous times to redirect, validate, and sooth pt, however her behaviors continued to escalate. Due to pt's aggressive tone and irritability, the slitting machine operator suggested that pt meet with one of the therapists not running group to which pt declined, picked up her belongings, and left the facility. Several attempts were made to contact patient to discuss concerns and struggles as well as to assess risk however she did not respond. Pt did respond via email 3 hours after group stating I'm fine please leave me alone. I put my phone on do not disturb. Several group members expressed feeling uncomfortable, unsafe, and described pt's actions as being a trauma trigger. This was not the first incidence of this type of behavior for this pt. Pt has either left or not been able to complete previous IOP sessions due to being emotionally dysregulated in the past without having suicidal ideations (see mental health progress notes on 01/01/24, 01/20/24, and 02/08/24). However this most recent outburst was the most severe and was at times directed at peers as well as staff. Pt is also currently in lower level of care than IOP which is not suited for significant emotional dysregulation. The decision was made to discharge the patient from aftercare as continued involvement would impact the care of other patients in the group. Group rules specifically state that group members provide supportive feedback and process problems in a respectful way. She was given referrals to IOPs in the area and encouraged to follow up with her individual counselor.
== END 2024-03-25 08:26 | disposition home or self-care (01) ==
LOC: BHOG 07:11
PROVIDERS: PCP Family Medicine; Referring Provider Psychiatry & Neurology Psychiatry; Visit Provider Psychiatry & Neurology Psychiatry
DX: F33.2 Major depressive disorder, recurrent severe without psychotic features (principal); F43.10 Post-traumatic stress disorder, unspecified; F42.4 Excoriation (skin-picking) disorder
CPT/HCPCS: 90853

== ENCOUNTER → 2024-06-10 | Outpatient (CLI) | payer OTHER, SELFPAY ==
[2024-06-10 11:05] LABS: Hemoglobin A1c 6.1 % (<=5.6)
[2024-06-10 11:13] LABS: ALB/GLOB Ratio 1.4 RATIO (0.9-2.4); AST(SGOT) 35 U/L (<=31); Alanine Aminotransfer ALT/SGPT 64 U/L (<=34); Alkaline Phosphatase 74 U/L (35-104); Anion Gap 13 (5-15); BUN 14 mg/dL (4-19); BUN/Creat Ratio 16.2 RATIO (10-20); Calcium,Total 9.4 mg/dL (7.6-11.0); Carbon Dioxide 22.8 mmol/L (21.0-32.0); Chloride 104 mmol/L (98-108); Cholesterol 244 mg/dL (<=200); Creatinine, Serum 0.84 mg/dL (0.70-1.20); EST Glomerular Filtration Rate 96 (>60); Globulin 2.8 g/dL (2.2-4.2); Glucose 116 mg/dL (70-99); High Density Lipoprotein 62 mg/dL; Low Density Lipoprotein Calc. 140 mg/dL; Potassium 4.2 mmol/L (3.3-5.1); Protein, Total 6.8 g/dL (5.9-8.4); Sodium Level 139 mmol/L (133-145); Total Bilirubin 0.25 mg/dL (0.00-1.30); Triglycerides 213 mg/dL; Very Low Density Lipoprotein 43 mg/dL (5-40); cholesterol:hdl ratio screen 3.94
== END | disposition home or self-care (01) ==
PROVIDERS: PCP Family Medicine; Referring Provider Family Medicine; Visit Provider Family Medicine
DX: R53.83 Other fatigue (principal); Z13.1 Encounter for screening for diabetes mellitus; R63.5 Abnormal weight gain; Z13.220 Encounter for screening for lipoid disorders
CPT/HCPCS: 80053; 80061; 82533; 83036; 84402; 84403; 84439; 84443

== ENCOUNTER → 2024-06-14 | Outpatient (CLI) | payer OTHER, SELFPAY ==
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
== END | disposition home or self-care (01) ==
PROVIDERS: PCP Family Medicine; Referring Provider Otolaryngology; Visit Provider Otolaryngology
DX: G44.89 Other headache syndrome (principal)
CPT/HCPCS: 70553; A9575

== ENCOUNTER → 2024-09-02 | Outpatient (CLI) | payer OTHER, MEDICAID, SELFPAY ==
--- NOTE | 2024-09-02 10:32 | RAD_ITS ---
PROCEDURE: CALCANEUS MIN 2 VIEWS 09/02/2024 REASON FOR EXAM: HEEL INJURY TECHNIQUE: Two views of the left calcaneus (os calcis). COMPARISON: None provided. FINDINGS: Mild inferior calcaneal spurring is noted. Normal contour of the visualized portion of the Achilles tendon is seen in the lateral view. No ankle joint effusion is evident. Normal bone mineralization. No evidence of fracture. No focal osseous lesion. Subtalar joint is unremarkable. Alignment is preserved. Soft tissues are unremarkable. No radiopaque foreign body identified. RAD/Calcaneus min 2 Views IMPRESSION: 1. Mild inferior calcaneal spurring. 2. No fracture site is seen. If clinical concern persists, short-term follow-u p imaging may be obtained to rule out a currently occult fracture. Reading Location: [address]
== END | disposition home or self-care (01) ==
PROVIDERS: PCP Family Medicine; Referring Provider Family Medicine; Visit Provider Family Medicine
DX: S99.922A Unspecified injury of left foot, initial encounter (principal)
CPT/HCPCS: 73650

== ENCOUNTER → 2024-09-22 | Outpatient (CLI) | payer OTHER, MEDICAID, SELFPAY ==
[2024-09-22 18:34] LABS: Ferritin 167 ng/mL (22-378)
[2024-09-22 19:00] LABS: Iron 151 ug/dL (50-170)
== END | disposition home or self-care (01) ==
PROVIDERS: PCP Family Medicine; Referring Provider Family Medicine; Visit Provider Family Medicine
DX: R53.83 Other fatigue (principal)
CPT/HCPCS: 36415; 82728; 83540

== ENCOUNTER 2024-10-22 17:44 | Emergency (ER) | payer OTHER, MEDICAID, SELFPAY ==
[2024-10-22 17:44] VITALS: BP 145/103; PULSE 90; RESP 30; TEMP 36.6; O2SAT 100
[2024-10-22] MEDS: 0.9% Normal Saline (1000mL) 1,000 ML 999 ML IV (18:23)
[2024-10-22] MEDS: DiphenhydrAMINE 50 MG/ML Syringe 25 MG IV (18:25)
--- NOTE | 2024-10-22 18:32 | EDS_ITS ---
HPI <AMITA Perez - Last Filed: 10/22/24 20:51> History of Present Illness Chief Complaint: Headache Narrative Narrative: Patient presents today with a migraine she has had over the last several days. She reports a significant history of migraines, she has tried multiple different migraine medications in the past and follows with [facility] neurology. She had a DHE infusion earlier this week for her migraines. She reports that since having this infusion her headache has been worse. She describes the pain as a throbbing sensation to the right side of her head, this is generally where she has her migraines. She also reports photophobia, phonophobia, and nausea. She denies any fevers, chills, and neck pain. She reports that her pain is consistent with previous migraines, however, it is more intense prompting her to come in to be seen. She denies any personal or familial history of brain aneurysms. She had an MRI in May of this year. LMP was 3 weeks ago. PFS <AMITA Perez - Last Filed: 10/22/24 20:51> [facility] Medical History (Updated 10/22/24 @ 19:34 by AMITA Perez) History of lumbar puncture Excoriation (skin-picking) disorder PTSD (post-traumatic stress disorder) Major depressive disorder, recurrent severe without psychotic features Chronic migraine Interstitial cystitis Home Medications ?Medication ?Instructions ?Recorded ?Last Taken ?Type [facility]ICAL [facility] 01/14/23 Unknown History hydroxyzine pamoate 50 mg capsule 50 mg PO Q8H PRN anx iety 30 days 04/05/24 Unknown Rx #90 caps melatonin 5 mg capsule mg PO 07/20/24 Unknown Histo ry lamotrigine 100 mg tablet 100 mg PO DAILY 30 days #30 tabs 09/08/24 Unknown Rx (Lamictal) lorazepam 0.5 mg tablet 0.5 mg PO QDAY PRN anxiety # 10 tabs 09/14/24 Unknown Rx trazodone 50 mg tablet 50 mg PO QHS 30 days #30 tab s 09/19/24 Unknown Rx atogepant 60 mg tablet (Qulipta) 60 mg PO QDAY 5 Unknown History Allergy/AdvReac Type Severity Reaction Status Date / Time amoxicillin Allergy Hives Verified 10/22/24 17:45 erythromycin base Allergy Hives Verified 10/22/24 17:45 Penicillins Allergy Hives Verified 10/22/24 17:45 sulfamethoxazole (From Allergy Hives Verified 10/22/24 17:45 Bactrim) trimethoprim (From Bactrim) Allergy Hives Verified 10/22/24 17:45 Social History Smoking Status: Never smoker ROS <AMITA Perez - Last Filed: 10/22/24 20:51> ROS ED Constitutional Constitutional ED: Denies chills or fever(s) Eyes Eyes: Reports photophobia Cardiovascular Cardiovascular: Denies chest pain Respiratory/Chest Respiratory/Chest: Denies dyspnea Gastrointestinal Gastrointestinal: Reports nausea; Denies abdominal pain or vomiting Genitourinary Genitourinary ED: Denies dysuria, hematuria or urinary urgency Musculoskeletal Musculoskeletal: Denies neck pain Integumentary Denies rash Neurologic Neurologic: Reports headache(s); Denies weakness EXAM <AMITA Perez - Last Filed: 10/22/24 20:51> Physical Exam Const Vital Signs: 10/22/24 17:44 10/22/24 19:44 Temperature 97.9 F 98.8 F Temperature Source Oral Pulse Rate 90 100 Respiratory Rate 30 H 20 H Blood Pressure 145/103 H 139/73 H Blood Pressure Mean 117 95 Pulse Ox 100 100 Oxygen Delivery Method Room Air Positive well nourished, well developed and no apparent distress General Appearance ED: well developed HEENT Reports normocephalic and head/scalp atraumatic Mouth ED: Yes moist mucous membranes normal Eyes PERRL and EOMs intact bilaterally Neck full ROM, supple and no meningeal signs Chest Wall inspection of chest normal Resp normal respiratory effort and clear to auscultation bilaterally Cardio regular rate and regular rhythm GI soft to palpation, non-tender, non-distended and no masses Back/Spine normal ROM and normal to inspection Extremity normal to inspection and full ROM Neuro oriented x3, CN's II-XII intact bilaterally, moves all extremities, no focal motor deficits and no sensory deficits noted Sensorium / Orientation: awake and alert Psych mental status grossly normal and thought process normal Skin no rashes or lesions noted and no wounds <Miky Damian MD - Last Filed: 10/22/24 21:15> Physical Exam Const Vital Signs: 10/22/24 17:44 10/22/24 19:44 Temperature 97.9 F 98.8 F Temperature Source Oral Pulse Rate 90 100 Respiratory Rate 30 H 20 H Blood Pressure 145/103 H 139/73 H Blood Pressure Mean 117 95 Pulse Ox 100 100 Oxygen Delivery Method Room Air [facility] <AMITA Perez - Last Filed: 10/22/24 20:51> [facility] Narrative Medical decision making narrative: Patient presenting today due to a migraine she has had over the last few days. She has a significant history of migraines and follows with [facility] neurology. Her pain is consistent with her typical migraines she just reports that the pain is more intense than usual. She did have an MRI of her brain in May of this year. She has no meningeal signs on exam, she is otherwise nontoxic-appearing, she has a normal neurological exam. I have low suspicion for SAH. She was medicated here with a migraine cocktail consisting of IV fluids, Compazine, Benadryl, and Toradol. On reexamination she reports significant improvement of her symptoms and is requesting to go home. I recommended she follow-up with neurology and she will be discharged home with the stable condition. <Miky Damian MD - Last Filed: 10/22/24 21:15> [facility] Treatment and Re-Evaluation Narrative: Dr. Damian: I have personally performed a face to face assessment of the patient and have reviewed the AMY Note. I performed a substantive portion of the visit including all aspects of the following. My monae findings include: History is migraine headaches, recurrent, with rebound headaches. Recent infusion of DHE a few days ago by [facility]. Exam is afebrile. Vital signs noted. Nontoxic-appearing. Cardiovascular semination regular rate and rhythm. Lungs clear to auscultation bilaterally. Abdomen soft and nontender. Neurological examination nonfocal, nonlateralizing. Sitting in darkened room with sunglasses on. Medical Decision Making: IV fluids, migraine cocktail. Repeat examination shows improvement in her headache. Follow-up neurology. Discharge. Other additions or changes: [None] Discharge Plan Triage Chief Complaint: Headache ED Midlevel Provider: Anabella Izquierdo ED Provider: Miky Damian Dx/Rx/DC Orders Clinical Impression: Migraine Instructions: ED, Migraine (Classical) Prescriptions: No Action hydroxyzine pamoate 50 mg capsule 50 mg PO Q8H PRN (Reason: anxiety) 30 Days Qty: 90 2RF Rx Instructions: 1 po tid melatonin 5 mg capsule PO lorazepam 0.5 mg tablet 0.5 mg PO QDAY PRN (Reason: anxiety) Qty: 10 0RF Qulipta 60 mg tablet 60 mg PO QDAY [facility] lamotrigine [Lamictal] 100 mg tablet 100 mg PO DAILY 30 Days Qty: 30 2RF trazodone 50 mg tablet 50 mg PO QHS 30 Days Qty: 30 2RF Rx Instructions: 1 po q hs Primary Care Provider: Anirudh eJrez Referrals: Anirudh Jerez MD [Primary Care Provider] - 5-7 Days Activity Restrictions/Additional Instructions: Follow-up with your neurologist and return for any worsening symptoms or if you have any other concerns. Print Language: [place] Disposition Disposition: Home, Self Care Discharge Date/Time: 10/22/24 19:56
--- OUTSIDE RECORDS SUMMARY | 2024-10-22 18:36 | XMS RPT_ITS | CCD ---
Author Organization [facility] CliniSyct Care Team Providers Care Promotions Intern Name Role Phone Chanel Esparza Unavailable Unavailable PROVIDER, UNKNOWN Unavailable Unavailable Eduard Coppola Unavailable Unavailable South, Leida Unavailable Unavailable PROVIDER, UNKNOWN Unavailable Unavailable Eduard Coppola Unavailable Unavailable South, Leida Unavailable Unavailable Eduard Coppola Unavailable Unavailable PROVIDER, UNKNOWN Unavailable Unavailable EDUARD COPPOLA Unavailable Unavailable MADALYN OLIVERA Unavailable Unavailable EDUARD COPPOLA Unavailable Unavailable MYRON VIVEROS Unavailable Unavailable MYRON VIVEROS Unavailable Unavailable EDUARD COPPOLA Unavailable Unavailable REFERRING, SEAN MACDONALD ID Unavailable Unavailable MYRON VIVEROS Unavailable Unavailable EDUARD COPPOLA Unavailable Unavailable DR EDUARD COPPOLA DO Primary Care Physician BRIA SMITH MD Attending Unavailable DR. EDUARD COPPOLA DO Primary Care UnavailEduard Posada DO Primary Care Provider Eduard Coppola DO Primary Care Provider Anirudh Jerez MD Primary Care Provider Eduard Coppola DO Primary Care Provider EDUARD COPPOLA Primary Care Unavailable EDUARD COPPOLA Primary Care Unavailable EDUARD COPPOLA Primary Care Unavailable EDUARD COPPOLA Primary Care Unavailable SHILA CLARK Referring Unavailable EDUARD COPPOLA Primary Care Unavailable SANTI COLUNGA Referring Unavailable EDUARD COPPOLA Primary Care Unavailable EDUARD COPPOLA Primary Care Unavailable Anirudh Jerez MD Primary Care Provider Eduard Coppola DO Primary Care Provider Anirudh Jerez MD Primary Care Provider Anirudh Jerez Primary Care Unavailable Galilea Montemayor Attending Unavailable DiLauro, Galilea Referring Unavailable Viky, Chalon Primary Care Unavailable DiLauro, Galilea Referring Unavailable DiLauro, Galilea Attending Unavailable Viky, Chalon Attending Unavailable Viky, Chalon Referring Unavailable Viky, Chalon Primary Care Unavailable SeeseHugo L Attending Unavailable Viky, Chalon Primary Care Unavailable Seese, Hugo L Attending Unavailable Viky, Chalon Primary Care Unavailable Seese, Hugo L Attending Unavailable Viky, Chalon Primary Care Unavailable Seese, Hugo L Attending Unavailable Viky, Chalon Primary Care Unavailable Seese, Hugo L Attending Unavailable Viky, Chalon Primary Care Unavailable Seese, Hugo L Attending Unavailable Viky, Chalon Primary Care Unavailable Viky, Chalon Primary Care Unavailable DiLauro, Galilea Referring Unavailable DiLauro, Galilea Attending Unavailable Viky, Soniyaon Attending Unavailable Viky, Chalon Referring Unavailable Viky, Chalon Primary Care Unavailable Bria Mancuso Consulting Unavailable Wartmann, Cecilio Attending Unavailabl e Wartmann, Cecilio Referring Unavailabl e Viky, Chalon Primary Care Unavailable Viky, Chalon Primary Care Unavailable DiLauro, Galilea Referring Unavailable DiLauro, Galilea Attending Unavailable Viky, Soniyaon Attending Unavailable Viky, Chalon Referring Unavailable Viky, Chalon Primary Care Unavailable DiLauro, Galilea Attending Unavailable DiLauro, Galilea Referring Unavailable Viky, Chalon Primary Care Unavailable VIKY, CHALON Primary Care Unavailable SMITH, JOSE Attending Unavailable DASH, JAYE Referring Unavailable VIKY, CHALON Primary Care Unavailable SMITH, JOSE Attending Unavailable DASH, JAYE Referring Unavailable DASH, JAYE Attending Unavailable VIKY, CHALON Primary Care Unavailable DASH, JAYE Attending Unavailable VIKY, CHALON Primary Care Unavailable DASH, JAYE Attending Unavailable VIKY, CHALON Primary Care Unavailable DASH, JAYE Attending Unavailable DASH, JAYE Referring Unavailable VIKY, CHALON Primary Care Unavailable DASH, JAYE Attending Unavailable VIKY, CHALON Primary Care Unavailable Allergies Allergy Classification Reported Allergen(s) Allergy Type Date of Onset Reaction(s) Facility (20 sources) Amoxicillin; Translations: [amoxicillin] Drug Allergy 05-08-19 17 [facility] (20 sources) Erythromycin; Translations: [erythromycin] Drug Allergy 05-08-19 [facility] (1 source) Penicillin; Translations: [penicillin] Drug Allergy [facility] (20 sources) Sulfamethoxazole / Trimethoprim; Translations: [sulfamethoxazole-tr imethoprim] Drug Allergy 05-08-19 [facility] (20 sources) Egg white Allergy to substance 10-09-19 [facility] (20 sources) Penicillins; Translations: [PENICILLINS] Drug Allergy 05-08-19 [facility] (2 sources) Penicillins Allergy to substance 01-15-20 [facility] (2 sources) Sulfamethoxazole Drug Allergy 01-15-20 [facility] (2 sources) Trimethoprim Drug Allergy 01-15-20 [facility] (3 sources) egg extract; Translations: [EGG] Drug Allergy 10-09-19 [facility] (2 sources) Penicillins Drug Allergy 10-09-19 [facility] (2 sources) EPINEPHrine; Translations: [EPINEPHRINE] Drug Allergy 03-02-20 Other: See Comments [facility] (1 source) Sulfamethoxazole / Trimethoprim; Translations: [SULFAMETHOXAZOLE-TR IMETHOPRIM] Drug Allergy 05-08-19 [facility] (1 source) Amoxicillin Drug Allergy 10-13-19 [facility] (1 source) Erythromycin Drug Allergy 10-13-19 [facility] (1 source) Penicillins Drug allergy (disorder) 10-13-19 [facility] (1 source) Sulfamethoxazole Drug Allergy 10-13-19 [facility] (1 source) Trimethoprim Drug Allergy 10-13-19 [facility] Medications Current Medications Medication Drug Class(es) Dates Sig (Normalized) Sig (Original) amitriptyline hydrochloride 25 mg oral tablet (1 source) Tricyclic Antidepressant Start: 09-18-2016 amitriptyline 25 mg oral tablet Dose : 25 mg = 1 tab(s), Oral, qHS Start Date: 09/18/16 Status: Ordered ARIPiprazole 2 mg oral tablet (3 sources) Atypical Antipsychotic Start: 08-01-2022 End: 04-16-2023 take 1 tablet by mouth once daily at bedtime ARIPiprazole (ABILIFY) 2 mg tablet Take 2 mg by mouth daily at bedtime. 08/01/2022 Active clindamycin 10 mg/ml topical lotion (15 sources) Lincosamide Antibacterial Start: 08-04-2022 End: 04-11-2024 Clindamycin Phosphate (CLEOCIN T) 1 % lotion 08/04/2022 Active cyclobenzaprine hydrochloride 10 mg oral tablet (2 sources) Muscle Relaxant Start: 01-14-2023 take 10 mg by mouth three times daily Cyclobenzaprine Active 10 MG PO THREE TIMES A DAY January 13, 2023 11:00pm DULoxetine 20 mg delayed release oral capsule (20 sources) Serotonin and Norepinephrine Reuptake Inhibitor Start: 01-14-2023 take 2 capsules by mouth twice daily Duloxetine (Cymbalta) 20 mg capsule,delayed release(DR/EC) Active 40 MG PO TWICE A DAY January 13, 2023 11:00pm Start: 01-19-2022 End: 04-11-2024 take 1 capsule by mouth in the morning DULoxetine (Cymbalta) [address] capsule Take 40 mg by mouth in the morning and 40 mg before bedtime. 01/19/2022 04/11/2024 Discontinued (Med list cleanup) take 1 capsule by mo uth once daily in the morning DULoxetine (Cymbalta) [address] capsule Take 30 mg by mouth every morning. Do not crush or chew. Active End: 10-19-2024 take 1 capsule by mouth once daily in the evening DULoxetine (Cymbalta) [address] capsule Take 60 mg by mouth every evening. Do not crush or chew. 10/19/2024 Discontinued (Therapy completed) duloxetine HCl ( DULOXETINE ORAL) Take by mouth. Active duloxetine HCl ( DULOXETINE ORAL) Take by mouth. 0 Active Comment on above: Take by mouth. {24 (Ethinyl Estradiol 0.01 MG / norethindrone acetate 1 MG Oral Tablet) / 2 (Ethinyl Estradiol 0.01 MG Oral Tablet) / 2 (Ferrous fumarate 75 MG Oral Tablet) } Pack [Lo Loestrin Fe 28 Day] (1 source) Estrogen Start: 9 Lo Loestrin Fe oral tablet 0 Refill(s) Start Date: 05/27/18 Status: Ordered L Norgest/E.Estradiol-E.E strad (10 sources) Progestin, Estrogen, Progestin-containing Intrauterine Device Start: take 1 tablet by mouth once daily L Norgest/E.Estradi ol-E.Estrad (Amethia) 0.15 mg-30 mcg (84)/10 mcg (7) tablets,dose pack,3 month Active 1 TABLET PO DAILY January 13, 2023 11:00pm Start: 01-14-2023 take 1 tablet by alexis th once daily L Norgest/E.Estradiol-E.Estrad (Amethia) 0.15 mg-30 mcg (84)/10 mcg (7) tablets,dose pack,3 month Active 1 TABLET PO DAILY January 14, 2023 12:00am Start: 01-16-2022 End: 04-16-2023 take 1 tablet by mouth once daily Ashlyna 0.15-0.03 &0.01 MG tablet tablet TAKE 1 TABLET BY MOUTH ONCE DAILY CONTINUOUSLY 0 01/16/2022 04/16/2023 Discontinued Start: 01-16-2022 take 1 tablet by alexis th once daily Ashlyna 0.15-0.03 &0.01 MG tablet tablet TAKE 1 TABLET BY MOUTH ONCE DAILY CONTINUOUSLY 0 01/16/2022 Active Ethinyl Estradiol / Norethindrone (2 sources) Estrogen take 1 tablet by mouth once daily Norethindrone Acet-Ethinyl Est 1-20 mg-mcg per tablet Take 1 tablet by mouth once daily. Active take 1 tablet by mouth once rosmery y Norethindrone Acet-Ethinyl Est 1-20 mg-mcg per tablet Take 1 tablet by mouth once daily. 0 Active Comment on above: Take 1 tablet by alexis th once daily. Fish Oils (1 source) Start: 09-20-2017 Fish Oil 500 mg oral capsule 0 Refill(s) Start Date: 09/20/17 Status: Ordered Fluconazole (3 sources) Azole Antifungal Start: 09-20-2017 fluconazole 0 Refill(s) Start Date: 09/20/17 Status: Ordered Start: 05-13-2016 take 1 tablet by alexis th every week fluconazole (DIFLUCAN) 150 mg tablet Take 1 tablet by mouth once each week. 8 tablet 05/13/2016 Active Comment on above: Take 1 tablet by alexis th once each week. 1.5 ml fremanezumab-vfrm 150 mg/ml auto-injector (20 sources) Start: 02-15-2024 End: 02-14-2025 fremanezumab (Ajovy) 225 MG/1.5ML auto-injector Indications: Migraine Inject 1 Pen (225 mg) under the skin every 30 (thirty) days. 4.5 mL 3 05/03/2024 8:22 AM EST 02/15/2024 02/14/2025 Active Start: 06-09-2023 End: 10-21-2023 fremanezumab (Ajovy) 225 MG/ 1.5ML auto-injector Inject 1 Pen (225 mg) under the skin every 30 (thirty) days. 1.68 mL 5 06/09/2023 10/21/2023 Active Start: 01-14-2023 Fremanezumab-V frm (Ajovy Autoinjector) 225 mg/1.5 mL auto-injector Active 225 MG SC EVERY MONTH January 13, 2023 11:00pm Start: 10-22-2022 End: 03-05-2023 fremanezumab (Ajovy) 225 MG/ 1.5ML auto-injector Inject 1 Pen (225 mg) under the skin every 30 (thirty) days. 1.68 mL 3 10/22/2022 03/05/2023 Active Start: 02-18-2022 End: 05-21-2022 fremanezumab (Ajovy) 225 MG/ 1.5ML auto-injector Inject 1 pen (225 mg) under the skin every 30 (thirty) days. 1.68 mL 5 02/18/2022 05/21/2022 End: 10-22-2022 fremanezumab-vfrm subcutaneu s auto-injector 225 mg/1.5 mL (AJOVY) Active lamoTRIgine 100 mg oral tablet (13 sources) Mood Stabilizer, Anti-epileptic Agent take 1 tablet by mouth once daily in the evening lamoTRIgine (LaMICtal) 100 MG tablet Take 100 mg by mouth every evening. Active MEDICAL MARIJUANA (2 sources) Start: 01-15-20 MEDICAL MARIJUANA Active January 13, 2023 11:00pm Start: 01-14-2023 BELKIS ENCISO Active January 14, 2023 12:00am Melatonin (14 sources) Start: 05-27-2018 melatonin 0 Re fill(s) Start Date: 05/27/18 Status: Ordered Start: 05-27-2018 End: 10-19-2024 melatonin 5 MG tablet 0 Refi ll(s) 05/27/2018 10/19/2024 Discontinued (Therapy completed) Macrodantin (1 source) Nitrofuran Antibacterial Start: 09-20-2017 Macro dantin 0 Refill(s) Start Date: 09/20/17 Status: Ordered Probiotic (2 sources) Start: 09-20-2017 Probiotic 0 Re fill(s) Start Date: 09/20/17 Status: Ordered Start: 09-20-2017 Probiotic 0 Re fill(s) Start Date: 09/20/17 Status: Ordered spironolactone 25 mg oral tablet (2 sources) Aldosterone Antagonist take 1 tablet by mouth twice daily spironolactone (ALDACTONE) 25 mg tablet Take 25 mg by mouth twice daily. Active Comment on above: Take 25 mg by mouth twice daily. tumeric (1 source) Start: 05-28-19 tumeric tumeric, 0 Refill(s) Start Date: 05/27/18 Status: Ordered Completed/Discontinued Medications Medication Drug Class(es) Dates Sig (Normalized) Sig (Original) adapalene 0.001 mg/mg topical gel (14 sources) Retinoid End: 04-11-2024 adapalene (Differin) 0.1 % gel Apply topically Nightly. 04/11/2024 Discontinued (Med list cleanup) busPIRone hydrochloride 5 mg oral tablet (7 sources) Start: 01-22-2022 End: 10-23-2022 take 1 tablet by mouth in the morning busPIRone (Buspar) 5 MG tablet Take 5 mg by mouth in the morning and 5 mg before bedtime. 0 01/22/2022 10/23/2022 Discontinued (Med list cleanup) Clascoterone (Winlevi) 1 % cream (14 sources) End: 04-11-2024 Clascoterone (Winlevi) 1 % cream Apply topically. 04/11/2024 Discontinued (Med list cleanup) Clascoterone (Wi nlevi) 1 % cream Apply topically. Active Clascoterone (Wi nlevi) 1 % cream Apply topically. 0 Active {21 (Desogestrel 0.15 MG / Ethinyl Estradiol 0.03 MG Oral Tablet) / 7 (Inert Ingredients 1 MG Oral Tablet) } Pack [Apri 28 Day] (1 source) Progestin, Estrogen Start: 09-18-2016 take 1 tablet by mouth once daily Apri 0.15 mg-0.03 mg oral tablet Dose = 1 tab(s), Oral, qDay Start Date: 09/18/16 Status: Ordered 1 ml dihydroergotamine mesylate 1 mg/ml injection (2 sources) Ergotamine Derivative Start: 10-18-2024 End: 10-19-2024 take 0.5 mg intravenously once 0.5 mg, IntraVENous, Once, On Thu10/19/24 at 1215, For 1 dose, Give IVP slowly over 3-5 minutes. drospirenone 3 mg / ethinyl estradiol 0.02 mg oral tablet (9 sources) Progestin, Estrogen Start: 03-19-2023 End: 07-05-2024 drospirenone-eth inyl estradiol (Jarrod Meyer) 3-0.02 MG tablet Take 1 tablet by mouth daily. 03/19/2023 07/05/2024 Discontinued 1 ml galcanezumab-gnlm 120 mg/ml auto-injector (14 sources) Start: 12-08-2023 End: 04-11-2024 galcanezumab (Emgality) 120 MG/ML auto-injector Indications: Migraine Inject 2 pens (240 mg) under the skin once for first month loading dose. 2 mL 12/18/2023 4:13 PM EDT 12/08/2023 04/11/2024 Discontinued Start: 12-08-2023 End: 04-11-2024 galcanezumab (Emgality) 120 MG/ML auto-injector Indications: Migraine Inject 1 pen (120 mg) under the skin every 30 days. 3 mL 3 01/19/2024 8:21 AM EDT 12/08/2023 04/11/2024 Discontinued (Med list cleanup) glycopyrrolate 1 mg oral tablet (14 sources) Start: 10-18-2022 End: 04-11-2024 glycopyrrolate (Robinul) 1 MG tablet 10/18/2022 04/11/2024 Discontinued (Med list cleanup) hydrOXYzine pamoate 50 mg oral capsule (20 sources) Antihistamine Start: 09-15-2023 End: 09-16-2023 take 1 capsule by mouth every six hours as needed for anxiety 50 mg, Oral, Every 6 hours PRN, anxiety, Starting on Thu09/15/23 at 1630 Start: 01-08-2022 take 2 capsules by m outh four times daily hydrOXYzine pamoate (Vistaril) 50 MG capsule TAKE 2 CAPSULES BY MOUTH 4 TIMES DAILY 01/08/2022 Active hydroxyzine pamo ate (VISTARIL ORAL) Take 100 mg by mouth. Active Comment on above: Take 100 mg by mouth . 1 ml ketorolac tromethamine 30 mg/ml cartridge (4 sources) Nonsteroidal Anti-inflammatory Drug, Cyclooxygenase Inhibitor Start: 10-18-2024 End: 10-19-2024 30 mg, IntraVENous, Once, On Thu10/19/24 at 1215, For 1 dose Start: 04-11-2024 End: 04-11-2024 ketorolac (Toradol) injectio n 60 mg Start: 04-11-2024 End: 04-11-2024 inject 60 mg by intramuscular injection once 60 mg, IntraMUSCular, Once, On Thu04/11/24 at 1400, For 1 dose 10 ml lidocaine hydrochloride 20 mg/ml injection (2 sources) Antiarrhythmic, Amide Local Anesthetic Start: 06-22-2024 End: 06-22-2024 Infiltration, As needed, Starting on Thu06/22/24 at 1328, Intraprocedure 1 ml LORazepam 2 mg/ml injection (2 sources) Benzodiazepine Start: 10-19-2024 End: 10-19-2024 1 mg, IntraVENous, Once, On Thu10/19/24 at 1215, For 1 dose, For IV doses dilute dose with 1ml NS. Start: 10-18-2024 End: 10-18-2024 1 mg, IntraVENous, Once, On Thu10/18/24 at 1215, For 1 dose, For IV doses dilute dose with 1ml NS. N-ACETYL CYSTEINE PO (9 sources) End: 07-05-2024 take 1000 mg by mouth once daily N-ACETYL CYSTEINE PO Take 1,000 mg by mouth daily. 07/05/2024 Discontinued take 1000 mg by mouth once daily N-ACETYL CYSTEINE PO Take 1,000 mg by mouth daily. Active naratriptan 2.5 mg oral tablet (8 sources) Serotonin-1b and Serotonin-1d Receptor Agonist Start: 04-14-2024 End: 07-05-2024 take 1 tablet by mouth once as needed naratriptan (Amerge) 2.5 MG tablet Take 1 tablet (2.5 mg) by mouth Once as needed for migraine (may repeat x1). 9 tablet 3 04/14/2024 07/05/2024 Discontinued 2 ml ondansetron 2 mg/ml injection (11 sources) Serotonin-3 Receptor Antagonist Start: 10-18-2024 End: 10-19-2024 8 mg, IntraVENous, Once, On Thu10/19/24 at 1215, For 1 dose Start: 09-29-2023 End: 07-05-2024 take 1 tablet by mouth every twelve hours as needed for nausea ondansetron ODT (Zofran-ODT) 4 MG disintegrating tablet DISSOLVE 1 TABLET IN MOUTH EVERY 12 HOURS NEEDED FOR NAUSEA 09/29/2023 07/05/2024 Discontinued 24 hr oxybutynin chloride 5 mg extended release oral tablet (1 source) Cholinergic Muscarinic Antagonist Start: 04-07-2019 take 1 tablet by mouth once daily oxybutynin XL (DITROPAN XL) 5 mg 24 hr tablet Take 1 tablet by mouth once daily. 30 tablet 1 04/07/2019 Active Comment on above: Take 1 tablet by [facility] once daily. phentermine hydrochloride 37.5 mg oral tablet (2 sources) Sympathomimetic Amine Anorectic End: 04-16-2023 take 1 tablet by mouth once daily before breakfast phentermine (Adipex-P) 37.5 MG tablet Take 37.5 mg by mouth every morning (before breakfast). 0 04/16/2023 Discontinued predniSONE 20 mg oral tablet (3 sources) Start: 04-11-2024 End: 05-24-2024 take 1 tablet by mouth three times daily, then take 1 tablet by mouth twice daily, then take 1 tablet by mouth once daily, then take 0.5 tablet by mouth once daily predniSONE (Deltasone) 20 MG tablet Take 1 tablet (20 mg) by mouth 3 times daily for 3 days, THEN 1 tablet (20 mg) 2 times daily for 3 days, THEN 1 tablet (20 mg) daily for 3 days, THEN 0.5 tablets (10 mg) daily for 4 days. 20 tablet 04/11/2024 05/24/2024 Discontinued 24 hr propranolol hydrochloride 80 mg extended release oral capsule (7 sources) beta-Adrenergic Emilie Start: 05-31-2024 End: 09-08-2024 take 1 capsule by mouth once daily propranolol LA (Inderal LA) 80 MG 24 hr capsule Take 1 capsule (80 mg) by mouth Nightly. Do not crush, chew, or split. 30 capsule 2 05/31/2024 09/08/2024 Discontinued repaglinide 1 mg oral tablet (3 sources) Glinide Start: 08-30-2024 End: 10-19-2024 take 1 tablet by mouth once daily repaglinide (Prandin) 1 MG tablet Take 1 mg by mouth daily. 08/30/2024 10/19/2024 Discontinued (Therapy completed) rimegepant 75 mg disintegrating oral tablet (1 source) Start: 02-18-2022 End: 05-21-2022 take 1 tablet by mouth once daily as needed Rimegepant Sulfate (Nurtec) 75 MG tablet dispersible Take 1 tablet (75 mg) by mouth once daily as needed (Migraine). 8 tablet 5 02/18/2022 05/21/2022 rizatriptan 10 mg oral tablet (9 sources) Serotonin-1b and Serotonin-1d Receptor Agonist Start: 04-11-2024 End: 07-05-2024 take 1 tablet by mouth once as needed rizatriptan (Maxalt) 10 MG tablet Take 1 tablet (10 mg) by mouth Once as needed for migraine (may repeat x1) for up to 27 doses. May repeat in 2 hours if unresolved. Do not exceed 30 mg in 24 hours. 9 tablet 2 04/11/2024 07/05/2024 Discontinued 50 ml sodium chloride 9 mg/ml injection (2 sources) Start: 10-18-2024 End: 10-19-2024 take 100 mL intravenously every hour, then take 20 mL intravenously every hour 5-250 mL/hr, IntraVENous, Once PRN, KVO, Starting on Thu10/19/24 at 1204, If patient receiving piggyback infusions and maintenance fluids are not ordered OR KVO fluids to protect IV site/ prevent frequent line interruptions/ long duration For piggyback infusion, administer at same rate as piggyback for a total of 25 mL. Enter 25 mL into dose field and piggyback rate into rate field of order. If piggyback is infusing at a rate less than 100 mL/hr, enter 25 mL into dose field and 100 mL/hr into rate field of order. For KVO fluids, enter rate of 20 mL/hr or less into rate field of order. thyroid (fdc) 15 mg oral tablet (7 sources) Start: 01-08-2022 End: 10-23-2022 take 3 tablets by mouth once daily in the morning COMMODITIES TRADER Thyroid 15 MG tablet TAKE 3 TABLETS BY MOUTH ONCE DAILY IN THE MORNING ON AN EMPTY STOMACH 0 01/08/2022 10/23/2022 Discontinued (Med list cleanup) topiramate 25 mg oral tablet (1 source) Start: 05-24-2024 End: 05-26-2024 take 1 tablet by mouth once daily, then take 1 tablet by mouth twice daily, then take 1 tablet by mouth three times daily, then take 2 tablets by mouth twice daily topiramate (Topamax) 25 MG tablet Take 1 tablet (25 mg) by mouth daily for 7 days, THEN 1 tablet (25 mg) 2 times daily for 7 days, THEN 1 tablet (25 mg) 3 times daily for 7 days, THEN 2 tablets (50 mg) 2 times daily for 7 days. 70 tablet 05/24/2024 05/26/2024 Discontinued (Side effects) traMADol hydrochloride 50 mg oral tablet (9 sources) Opioid Agonist End: 07-05-2024 take 1 tablet by mouth twice daily as needed traMADol (Ultram) 50 MG tablet Take 50 mg by mouth 2 times daily as needed. 07/05/2024 Discontinued traZODone hydrochloride 50 mg oral tablet (20 sources) Serotonin Reuptake Inhibitor Start: 09-15-2023 End: 09-16-2023 take 50 mg by mouth once daily as needed for sleep 50 mg, Oral, Nightly PRN, sleep, Starting on Thu09/15/23 at 1630 Start: 01-14-2023 take 50 mg by mouth at bedtime Trazodone Active 50 MG PO AT BEDTIME January 13, 2023 11:00pm Start: 07-28-2021 take 2 tablets by mo uth once daily at bedtime traZODone (Desyrel) 50 MG tablet TAKE TWO TABLETS BY MOUTH EVERY DAY AT BEDTIME 07/28/2021 Active take 1 tablet by alexis th once daily at bedtime traZODone (DESYREL) 100 mg tablet Take 100 mg by mouth daily at bedtime. Active Comment on above: Take 100 mg by mouth daily at bedtime. Turmeric extract (9 sources) End: 07-05-2024 Turmeric (QC TUMERIC COMPLEX PO) Take by mouth. 07/05/2024 Discontinued Turmeric (QC JEROME JAYNA COMPLEX PO) Take by mouth. Active Problems Active Problems Problem Classification Problem Date Documented Da te Episodic/Chronic Anxiety disorders (2 sources) Anxiety; Translations: [Anxiety disorder] 09-18-2016 Chronic Headache; including migraine (20 sources) Migraine without aura, not refractory ; Translations: [Chronic migraine without aura, not intractable, without status migrainosus] Onset: 10-22-2022 10-22-2022 Chronic Malaise and fatigue (1 source) Other fatigue; Translations: [Other fatigue] Onset: 10-03-2024 Episodic Mood disorders (3 sources) Depressive disorder; Translations: [Recurrent major depression in full remission] 10-08-2020 Chronic Multiple sclerosis (8 sources) Multiple sclerosis; Translations: [Multiple sclerosis] Onset: 06-22-2024 06-22-2024 Chronic Nonspecific chest pain (2 sources) Chest wall pain; Translations: [Other chest pain] 01-14-2023 Episodic Other endocrine disorders (1 source) Other ovarian dysfunction; Translations: [Other ovarian dysfunction] Onset: 05-20-2022 Chronic Other female genital disorders (2 sources) Vulvodynia, unspecified; Translations: [VULVODYNIA, UNSPECIFIED] Onset: 09-18-2016 Chronic Other injuries and conditions due to external causes (1 source) Injury of left ankle; Translations: [Unspecified injury of left ankle, initial encounter] 08-15-2022 Episodic Other injuries and conditions due to external causes (1 source) Unspecified injury of left foot, initial encounter; Translations: [Unspecified injury of left foot, initial encounter] Onset: 09-08-2024 Episodic Other nutritional; endocrine; and metabolic disorders (1 source) Obesity, unspecified; Translations: [Obesity, unspecified classification, unspecified obesity type, unspecified whether serious comorbidity present] Onset: 01-28-2023 Chronic Spondylosis; intervertebral disc disorders; other back problems (2 sources) Thoracic back pain; Translations: [Pain in thoracic spine] 01-14-2023 Episodic Suicide and intentional self-inflicted injury (2 sources) Suicidal thoughts; Translations: [Suicidal ideations] 09-15-2023 Episodic Thyroid disorders (3 sources) Hypothyroidism, unspecified; Translations: [Thyrotoxicosis with diffuse goiter without thyrotoxic crisis or storm] Onset: 05-20-2022 Chronic Unclassified (1 source) Unknown / UNK(Unknown) Onset: 09-18-2016 Urinary tract infections (3 sources) Chronic interstitial cystitis; Translations: [Interstitial cystitis (chronic) without hematuria] Onset: 10-08-2018 09-18-2016 Chronic Past or Other Problems Problem Classification Problem Date Documented Da te Episodic/Chronic Abdominal pain (4 sources) Generalized abdominal pain; Translations: [Chronic pelvic pain of female] Onset: 02-22-2017 10-08-2018 Episodic Allergic reactions (4 sources) Allergy status to sulfonamides status; Translations: [Allergy status to penicillin] Onset: 02-22-2017 Episodic Conditions associated with dizziness or vertigo (2 sources) Dizziness and giddiness; Translations: [Dizziness and giddiness] Onset: 02-22-2017 Episodic Headache; including migraine (1 source) Other headache syndrome; Translations: [Other headache syndrome] Onset: 06-20-2024 Episodic Other gastrointestinal disorders (2 sources) Diarrhea, unspecified; Translations: [Diarrhea, unspecified] Onset: 02-22-2017 Episodic Other injuries and conditions due to external causes (1 source) Unspecified injury of left ankle, initial encounter; Translations: [Injury of left ankle, initial encounter] Onset: 08-15-2022 Episodic Other skin disorders (2 sources) Rash and other nonspecific skin eruption; Translations: [Rash and other nonspecific skin eruption] Onset: 02-22-2017 Episodic Unclassified (1 source) ALLERGIC RESPONSE //NO DX Onset: 09-18-2016 Urinary tract infections (2 sources) Urethritis; Translations: [Other urethritis] Onset: 04-07-2019 04-07-2019 Episodic Results Test Name Value Interpretation Reference Range Facility [id number] 10-21-2024 [id number] Requested Prescriptions Signed Prescriptions Disp Refills atogepant (Qulipta) 60 MG tablet 30 tablet 5 Sig: Take 1 tablet (60 mg) by mouth daily. Authorizing Provider: JAYE BOWLING Prescription sent to [facility] for PA. [facility] 36on 10-20-2024 36 Spoke with Reyes Bowling COMMODITIES TRADER and Dr Smith. DHE can cause cystitis-so patient should not come for 3rd infusion today. Rest, increase fluids-no new meds today-and patient cannot tolerate Prednisone. Call with update if she needs anything further. Appt today cancelled [facility] 36 Name of Caller: Rosy Contact Reason for Appointment: Rosy stated that she has interstitial cystitis and she stated that the infusions are causing pain flare ups. Rosy also stated that the infusions have not subsided her migraines. Rosy stated that she does not want to continue with the 3rd infusion if it is not going to help her migraines because it causes the cystitis pain to worsen. Rosy isnt sure if the 3rd infusion will make a difference with her migraine, if it takes a while to take effect, or if it is not going to get better. She has been up since 2 am with a migraine. Please call Rosy back this morning. Office Name: Neurology [facility] Progress Noteon 10-19-2024 Progress Note Patient tolerated infusion well. Discharged home with friend [facility] Progress Noteon 10-18-2024 Progress Note Patient tolerated infusion well. Discharged home with friend [facility] MR/BMS.BPon 10-12-2024 MR/BMS.BP [place] [address], [address] [place] [address] OFFICE VISIT Date of Service: 10/12/24 MR#: [id number] Acct: [id number] Name: ROSY RAWLS Rep #: [id number] : 1995 Provider: Dr. Hugo Liz se, DO Age/Sex: 29/F Location: [facility].BP Status: Signed Intake Vital Signs 09/14/24 09:19 10/12/24 13:00 Height 5 ft 9 in 5 ft 9 in Weight: 245 lb BMI 36.1 BP 121/80 H Blood Pressure Location Lt brachial Position Sitting Respiration 16 Pulse 90 Pulse Source Monitor BP Intake Visit Reasons: 1 M FU Accompanied by: Self Allergies amoxicillin Allergy (Verified 10/12/24 13:03) Hives erythromycin base Allergy (Verified 10/12/24 13:03) Hives Penicillins Allergy (Verified 10/12/24 13:03) Hives sulfamethoxazole (From Bactrim) Allergy (Verified 10/12/24 13:03) Hives trimethoprim (From Bactrim) Allergy (Verified 10/12/24 13:03) Hives Medications ???Medication ???Instructions ???Recorded ???Confirmed ???Type MEDICAL MARIJUANA 01/14/23 10/12/24 History hydroxyzine pamoate 50 mg capsule 50 mg PO Q8H PRN anxiety 30 days 04/05/24 10/12/24 Rx #90 caps melatonin 5 mg capsule mg PO 07/20/24 10/12/24 History lamotrigine 100 mg tablet 100 mg PO DAILY 30 days #30 tabs 0 09/08/24 10/12/24 Rx (Lamictal) lorazepam 0.5 mg tablet 0.5 mg PO QDAY PRN anxiety #10 tab s 09/14/24 10/12/24 Rx trazodone 50 mg tablet 50 mg PO QHS 30 days #30 tabs 06/10/12/24 Rx atogepant 60 mg tablet (Qulipta) 60 mg PO QDAY 10/12/24 10/12/24 Hi story PFSH Medical History (Updated 07/20/24 @ 14:02 by Brigitte Rolle) History of lumbar puncture Excoriation (skin-picking) disorder PTSD (post-traumatic stress disorder) Major depressive disorder, recurrent severe without psychotic features Chronic migraine Interstitial cystitis Social History Smoking Status: Never smoker HPI History of Present Illness History provided by: patient HPI: Rosy Rawls is a 29 year old female who presents today for follow up evaluation. Continues to taper duloxetine, and again had some difficulty with tapering. Did have about a one week period where she was feeling significantly better, but then again felt that she was in a downswing. Unsure if this is due to medication or just happenstance. Had a group session of Stew around this same time which could be a reason why she was feeling better. Did cry yesterday and today so does still feel some level of mood swings. Has been having a sense of impending doom. Sleep has been ok. Had some passive thoughts of self harm, however did not act upon. Review of Systems Constitutional Denies: fever(s), chills, change in weight or fatigue Eyes Denies: change in vision or blurry vision Ears, Nose, Mouth, Throat Denies: throat pain, neck pain or change in hearing Cardiovascular Denies: chest pain, palpitations or dyspnea Respiratory Denies: dyspnea, cough or wheezing Gastrointestinal Denies: abdominal pain, nausea, vomiting, diarrhea or constipation Genitourinary Denies: dysuria or urinary frequency Musculoskeletal Denies: back pain, neck pain, joint pain or muscle weakness Integumentary/Breast Denies: rash or new lesions Neurological Denies: headache(s), dizziness or confusion Endocrine Denies: fatigue or excessive sweating Hematologic/Lymphati c Denies: easy bruising or easy bleeding Allergic/Immunologic Denies: wheezing Exam Mental Status Exam - Psych Appearance adequately groomed Attitude cooperative (Much more so than previous) Activity/Motor Behavior MSE activity/motor behavior finding no adventitious movements Speech regular rate, regular volume and regular prosody Mood depressed and anxious Affect tearful Thought Process linear, logical and coherent Thought Content no delusions and no hallucinations Suicidal Ideation none Homicidal Ideation none Attention intact Concentration intact Sensorium/Orientatio n awake, alert and oriented x3 Memory/Cognition other (appropriate for stated age) Insight fair Judgement fair Assessment Plan Assessment Plan (1) PTSD (post-traumatic stress disorder): Plan: - Initially had some difficulty with reduction in Cymbalta however has been tolerating well to this point wishes to continue tapering off of medication. We will reduce at 30 mg every day for 1 month and if still doing well we will discontinue after 1 month time - Continue lorazepam as needed largely only while tapering off of duloxetine -Patient was informed risks of benzo use including but not limited to sedation, fall risk and risk of cognitive problems including memory problems. Patient was also informed risks of abruptly stopping medication including seizure and delirium. Mini (more content not included)... Normal [facility] Ferritinon 09-22-2024 Ferritin [Mass/Vol] 167 ng/mL Normal 22-378 [facility] Comment on above: Performed By: #### L 503.6550, L503.6150 ####[facility] [address] [place], [place], [id number] Ironon 09-22-2024 Iron [Mass/Vol] 151 ug/dL Normal 50-170 [facility] Comment on above: Performed By: #### L 503.6550, L503.6150 ####[facility] [address] [place], [place], [id number] MR/BMS.BPon 09-14-2024 MR/BMS.BP [place] [address], [address] [place], [place] [address] OFFICE VISIT Date of Service: 09/14/24 MR#: [id number] Acct: [id number] Name: ROSY RAWLS Rep #: [id number] : 1995 Provider: Dr. Hugo Liz se, DO Age/Sex: 29/F Location: [facility].BP Status: Signed Intake Vital Signs 08/18/24 15:03 09/14/24 09:19 Height 5 ft 9 in 5 ft 9 in Weight: 247 lb BMI 36.4 BP 113/76 Blood Pressure Location Lt brachial Position Sitting Respiration 16 Pulse 71 Pulse Source Monitor BP Intake Visit Reasons: 1mfu Allergies amoxicillin Allergy (Verified 08/18/24 15:06) Hives erythromycin base Allergy (Verified 08/18/24 15:06) Hives Penicillins Allergy (Verified 08/18/24 15:06) Hives sulfamethoxazole (From Bactrim) Allergy (Verified 08/18/24 15:06) Hives trimethoprim (From Bactrim) Allergy (Verified 08/18/24 15:06) Hives [facility] Medical History (Updated 07/20/24 @ 14:02 by Brigitte Rolle) History of lumbar puncture Excoriation (skin-picking) disorder PTSD (post-traumatic stress disorder) Major depressive disorder, recurrent severe without psychotic features Chronic migraine Interstitial cystitis Social History Smoking Status: Never smoker HPI History of Present Illness History provided by: patient HPI: Rosy Rawls is a 29 year old female who presents today for follow up evaluation. Patient reports to having had some difficulty with tapering duloxetine initially, but now has been doing somewhat better. Did have some self harm urges but did not act upon other than some pinching of self. Has been trying different medications for diabetes, but these have been causing some nausea. Did have some significant anxiety about having had her period start again and believes some symptoms are related to hormones. Had stopped control 3 months ago, but is considering going back on medication in near future. Headaches have been about the same, has stopped all her migraine medications.Sleep has been alright. Sleep does remain somewhat shifted, getting to bed around midnight and up around noon. Was able to get some financial assistance from her mother which has alleviated a lot of financial stress. Has been doing fair in regards to picking type behavior. Review of Systems Constitutional Denies: fever(s), chills, change in weight or fatigue Eyes Denies: change in vision or blurry vision Ears, Nose, Mouth, Throat Denies: throat pain, neck pain or change in hearing Cardiovascular Denies: chest pain, palpitations or dyspnea Respiratory Denies: dyspnea, cough or wheezing Gastrointestinal Denies: abdominal pain, nausea, vomiting, diarrhea or constipation Genitourinary Denies: dysuria or urinary frequency Musculoskeletal Denies: back pain, neck pain, joint pain or muscle weakness Integumentary/Breast Denies: rash or new lesions Neurological Denies: headache(s), dizziness or confusion Endocrine Denies: fatigue or excessive sweating Hematologic/Lymphati c Denies: easy bruising or easy bleeding Allergic/Immunologic Denies: wheezing Exam Mental Status Exam - Psych Appearance adequately groomed Attitude guarded and aggressive (Mild) Activity/Motor Behavior MSE activity/motor behavior finding no adventitious movements Speech regular rate, regular volume and regular prosody Mood depressed and anxious Affect tearful Thought Process linear, logical and coherent Thought Content no delusions and no hallucinations Suicidal Ideation none Homicidal Ideation none Attention intact Concentration intact Sensorium/Orientatio n awake, alert and oriented x3 Memory/Cognition other (appropriate for stated age) Insight fair Judgement fair Assessment Plan Assessment Plan (1) PTSD (post-traumatic stress disorder): Plan: - Initially had some difficulty with reduction in Cymbalta however has been tolerating well to this point wishes to continue tapering off of medication. We will reduce at 30 mg every day for 1 month and if still doing well we will discontinue after 1 month time - We will add very short-term supply of lorazepam secondary to anxiety with duloxetine withdrawal -Patient was informed risks of benzo use including but not limited to sedation, fall risk and risk of cognitive problems including memory problems. Patient was also informed risks of abruptly stopping medication including seizure and delirium. Patient was informed about clinic's control substance policy which includes but not limited to random UDS, no early refills, no authorization for lost script or pills and not to use illicit substance and alcohol which patient agreed to and verbalized understanding (2) Excoriation (skin-picking) disorder: Plan: - Fair - Did discuss NAC with patie (more content not included)... Normal [facility] 36on 09-13-2024 36 Pt scheduled for 10/18/2024 Normal [facility] Office Visiton 09-08-2024 Follow-up visit [id number] Rosy Rawls 1995 F Date Provider Department Center 09/08/2024 [id number] BOWLING [facility] None No family history on file Level of Service:34348 [place] OFFICE/OUTPATIENT ESTABLISHED LOW MDM 20 MIN Reason for Visit and Comments: Migraine [047526] - Same DHE is going at the end of September Going stop taking Qulipta is it not helping Stopped taking propranolol In a lot of pain today She said she noticed when her sugar drops her migraine is worse Normal [facility] Progress Noteon 09-08-2024 Progress Note [facility] Primary Care Physician: Anirudh Jerez MD Chief Complaint: Chief Complaint Patient presents with Migraine Same DHE is going at the end of September Going stop taking Qulipta is it not helping Stopped taking propranolol In a lot of pain today She said she noticed when her sugar drops her migraine is worse Main Diagnosis: Diagnosis Plan 1. Intractable chronic migraine without aura and without status migrainosus History: given by the patient and EMR. EMR was personally reviewed prior to today's visit and included review of prior notes and intermediate communications. HPI: Ms. Rosy Rawls is a 29 y.o. female who is seen in the NEUROLOGY CLINIC of [facility] for complaint of headaches. Patient states that since June she has been experiencing headaches on the right temporal area. She states the area will swell and dick. She states the pain is started in the occipital region and will sometimes radiate to the right eye. She states she will experience neck pain as well. She states she has had migraines in the past but they had a different pattern. She states she used to have visual aura followed by pain. She states they were not as intense or frequent as now. Patient reports that sometimes she will still develop paresthesias and weakness in the right side of the face as well as the right arm. 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 She states that her Mother suffers from migraines. She has current associated symptoms of photophobia, phonophobia, nausea. She has had recent lab studies which returned normal. Patient is positive for anxiety, interstitial cystitis, and depression. Currently, patient is not taking any preventive medication. Patient is a non-smoker. She does hold a medical marijuana card and she smokes marijuana. She does not drink alcohol. The last visit was 07/05/2024 with this provider where the patient was continued on Ajovy for the prevention of migraine with good control. The patient received a steroid taper for an acute migraine. Headache characteristics: Description of pain: throbbing pain, bilateral in the occipital area. Duration of individual headaches: 8-36 hour(s), frequency weekly. Associated symptoms: aura, light sensitivity, nausea, and sound sensitivity. Pain relief: unable to obtain relief with OTC meds. Precipitating factors: stress. INTERVAL HISTORY: Today, the patient returns for follow up of migraine pain on current medication regimen. The patient states migraine becomes worse with lower blood sugar. She reports she has gained 100 lbs over the last several months but does not feel her diet has changed and eats rarely. The patient has tried several preventative and abortive medications but has experienced side effects or the medication was ineffective. The patient is tearful during her visit today as she has pain throughout her body including headache pain and cannot find relief. The patient is scheduled for DHE infusions at the end of September to help with current migraine cycle. The patient states she does not want to start any other medications at this time. Discussed a referral to weight management. The patient states her insurance will not cover a referral at this time. Advised the patient to increase activity as tolerated with walking daily. The patient reports a bone spur on her heal that limits her walking. Advised the patient a follow up will be placed for evaluation after DHE infusion is completed. The patient agreed and verbalized understanding. The patient denies side effects from medications and no new neurological deficits. Current Headache Meds: No current medications Side effects: No known side effects Previous medication trials: Topiramate Propranolol Ajovy Qulipta Nurtec Past Medical History: Diagnosis Date Abnormal Pap smear of cervix 2018 Anxiety Cystitis, interstitial Depression Migraine Past Surgical History: Procedure Laterality Date COLONOSCOPY COLPOSCOPY CYSTOSCOPY LUMBAR PUNCTURE 06/22/2024 NERVE BLOCK (HISTORICAL) UPPER GASTROINTESTINAL ENDOSCOPY Allergies Allergen Reactions Amoxicillin Hives Egg White (Egg Protein) Hives Erythromycin Hives Other reaction(s): HIVES Penicillins Hives Other reaction(s): HIVES Sulfamethoxazole-Tri methoprim Hives Other reaction(s): hives @HOMEMEDS@ Current Outpatient Medications Medication Sig Dispense Refill DULoxetine (Cymbalta) [address] capsule Take 30 mg by mouth every morning. Do not crush or chew. hydrOXYzine pamoate (Vistaril) 50 MG capsule TAKE 2 CAPSULES BY MOUTH 4 TIMES DAILY lamoTRIgine (LaMICtal) 100 MG tablet Take 100 mg by mouth every evening. repaglinide (Prandin) 1 MG tablet Take 1 mg by mouth daily. traZODone (Desyrel) 50 MG tablet TAKE TWO TABLETS BY MOUTH EVERY DAY AT BEDTI (more content not included)... [facility] 09-07-2024 36 Patient prefers to wait for 3 day infusion at end september. Scheduled for 10-18, [facility] 36 Name of Caller: Rosy Contact Reason for Appointment: Rosy returned call to Mar to schedule her infusion. Please reach out to Rosy when available. Office Name: [facility] Neurology [facility] 09-06-2024 09-06 11:59 LMOVM auth for KLEIN infusion obtained-calling to schedule appt-will attempt to call patient back [facility] 36 No prior authorization needed. Infusion verification form scanned into media. Normal [facility] 36 Can you please assist with prior authorization? Normal [facility] Calcaneus min 2 Viewson 08-21 Calcaneus min 2 Views [facility] Imaging Services [address] [place], [place] [id number] Calcaneus min 2 Views MR#: [id number] Acct: [id number] Name: ROSY RAWLS Rep #: [id number] : 1995 From: Eduard Garcia PCP: Dr. Anirudh Jerez MD Status: REG CLI Study: Calcaneus min 2 Views Date of Exam: 09/02/24 Exam# [id number] Ordering Dr: Anirudh Jerez MD PROCEDURE: CALCANEUS MIN 2 VIEWS 09/02/2024 REASON FOR EXAM: HEEL INJURY TECHNIQUE: Two views of the left calcaneus (os calcis). COMPARISON: None provided. FINDINGS: Mild inferior calcaneal spurring is noted. Normal contour of the visualized portion of the Achilles tendon is seen in the lateral view. No ankle joint effusion is evident. Normal bone mineralization. No evidence of fracture. No focal osseous lesion. Subtalar joint is unremarkable. Alignment is preserved. Soft tissues are unremarkable. No radiopaque foreign body identified. RAD/Calcaneus min 2 Views IMPRESSION: 1. Mild inferior calcaneal spurring. 2. No fracture site is seen. If clinical concern persists, short-term follow-up imaging may be obtained to rule out a currently occult fracture. Reading Location: [address] CC: Dr. Anirudh Jerez MD Information Architect: Signed [facility] [id number] 08-31-2024 [id number] DHE order placed for continued migraine pain. Normal [facility] MR/BMS.BPon 08-18-2024 MR/BMS.BP [address], [address] [place], [place] [address] OFFICE VISIT Date of Service: 08/18/24 MR#: [id number] Acct: [id number] Name: ROSY RAWLS Rep #: [id number] : 1995 Provider: Dr. Hugo Liz se, DO Age/Sex: 29/F Location: [facility].BP Status: Signed Intake Vital Signs 07/20/24 13:51 08/18/24 15:03 Height 5 ft 9 in 5 ft 9 in Weight: 244 lb 247 lb BMI 36.0 36.4 BP 137/84 H 113/76 Blood Pressure Location Lt brachial Lt brachial Position Sitting Sitting Respiration 16 16 Pulse 84 71 Pulse Source Monitor Monitor BP Intake Visit Reasons: 3 wfu Accompanied by: Self Allergies amoxicillin Allergy (Verified 08/18/24 15:06) Hives erythromycin base Allergy (Verified 08/18/24 15:06) Hives Penicillins Allergy (Verified 08/18/24 15:06) Hives sulfamethoxazole (From Bactrim) Allergy (Verified 08/18/24 15:06) Hives trimethoprim (From Bactrim) Allergy (Verified 08/18/24 15:06) Hives Medications ???Medication ???Instructions ???Recorded ???Confirmed ???Type MEDICAL MARIJUANA 01/14/23 08/18/24 History hydroxyzine pamoate 50 mg capsule 50 mg PO Q8H PRN anxiety 30 days 04/05/24 08/18/24 Rx #90 caps lamotrigine 100 mg tablet 100 mg PO DAILY 30 days #30 tabs 0 04/05/24 08/18/24 Rx (Lamictal) trazodone 50 mg tablet 50 mg PO QHS 30 days #30 tabs 03/2308/18/24 Rx melatonin 5 mg capsule mg PO 07/20/24 08/18/24 History duloxetine 30 mg capsule,delayed 90 mg (3 x 30 mg) PO DAILY 30 days 08/05/24 08/18/24 Rx release (Cymbalta) #90 caps atogepant 60 mg tablet (Qulipta) 60 mg PO QDAY 08/18/24 08/18/24 Hi story propranolol 80 mg capsule,24 80 mg PO QHS 08/18/24 08/18/24 His tory hr,extended release PFSH Medical History (Updated 07/20/24 @ 14:02 by Brigitte Rolle) History of lumbar puncture Excoriation (skin-picking) disorder PTSD (post-traumatic stress disorder) Major depressive disorder, recurrent severe without psychotic features Chronic migraine Interstitial cystitis Social History Smoking Status: Never smoker HPI History of Present Illness History provided by: patient HPI: Rosy Rawls is a 29 year old female who presents today for follow up evaluation. Is currently on academic leave at this time. Will be off of work through October. Has recently spoke to her mother for the first time and it did go somewhat positive. She did ask her parents for assistance, but they didn't have any money to lend her. Also feels like her migraines have been getting worse. Does think that Qulipta may be helping in some capacity. Admits that she is feeling stuck. Is interested in trying to discontinue the duloxetine at this time. Has been sleeping 12-14 hours at night. Feels like her sleep cycle is shifted, going to bed late and waking up very late. Does feel tired much of the time. Does not wake up feeling restored. Does admit to having very vivid dreams. Has never had a sleep study in the past. STOP-BANG score of 3. STOP-Bang Questionnaire Is it possible that you have ... Obstructive Sleep Apnea (MONTY)? Snoring ? Do you???Snore Loudly???(loud enough to be heard through closed doors or your bed-partner elbows you for snoring at night)? No Tired ? Do you often feel???Tired, Fatigued, or Sleepy???during the daytime (such as falling asleep during driving or talking to someone)? Yes Observed ? Has anyone???Observed??? you???Stop Breathing???or???Cho april/Gasping???durin g your sleep ? No Pressure ? Do you have or are being treated for???High Blood Pressure? Yes Body Mass Index more than 35 kg/m2? BMI: 36.4 ??? Yes Age older than 50 ? No Neck size large ? (Measured around appiris) Is your shirt collar 16 inches / 40cm or larger? No Gender = Male ? No Review of Systems Constitutional Denies: fever(s), chills, change in weight or fatigue Eyes Denies: change in vision or blurry vision Ears, Nose, Mouth, Throat Denies: throat pain, neck pain or change in hearing Cardiovascular Denies: chest pain, palpitations or dyspnea Respiratory Denies: dyspnea, cough or wheezing Gastrointestinal Denies: abdominal pain, nausea, vomiting, diarrhea or constipation Genitourinary Denies: dysuria or urinary frequency Musculoskeletal Denies: back pain, neck pain, joint pain or muscle weakness Integumentary/Breast Denies: rash or new lesions Neurological Denies: headache(s), dizziness or confusion Endocrine Denies: fatigue or excessive sweating Hematologic/Lymphati c Denies: easy bruising or easy bleeding Allergic/Immunologic Denies: wheezing Exam Mental Status Exam - Psych Appearance adequately groomed Attitude guarded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 2023. A: Caller reports patient had labs and imaging which was worrisome for MS. Patient states she is feeling horrible, sleeping more often, and feelings of sadness. Denies present suicidal ideations. Patient is with her godmother Rianna. Patient reports she feels safe now, is just tired. R: Patient states she was instructed to follow up with neurology regarding her MRI. Caller instructed to call back if patient has new or worsening symptoms. Home care advice reviewed per protocol with caller. Caller verbalizes understanding. Reason for Disposition Mild depression Protocols used: [id number] Normal [facility] Brain W/WO Contraston 2024 Brain W/WO Contrast [facility] Imaging Services [address] [place], [place] [address] Brain W/WO Contrast MR#: [id number] Acct: [id number] Name: ROSY RAWLS Rep #: [id number] : 1995 From: Andre Garcia PCP: Dr. Anirudh Jerez MD Status: REG CLI Study: Brain W/WO Contrast Date of Exam: 06/14/24 Exam# [id number] Ordering Dr: Cecilio Dove MD EXAM: MRI of the brain without and with contrast. CLINICAL HISTORY: Headaches since 2023. COMPARISON: None available. TECHNIQUE: Multiplanar multisequence MR imaging of the brain is performed both before and after administration of 21 mL of intravenous Clariscan. FINDINGS: There is no evidence of cerebral hemorrhage or cerebral edema. No abnormal focal mass effect is seen in the brain. There is no evidence of midline shift. Moderate number of scattered tiny abnormal bright T2 foci are seen in the left mid frontal lobe webster radiata; many of these appear oriented along the vector of white matter tracts or perpendicular to the axis of the ependymal lining of the ventricles. No concordant or discordant focus of diffusion restriction is identified. Also, no concordant or discordant focus of parenchymal enhancement is seen. There is no evidence of leptomeningeal enhancement that is abnormal. Pituitary gland and optic chiasm are unremarkable as visualized. The clivus is normal. Posterior fossa structures appear normal and the cerebellar tonsils are symmetrically normal in position. There is no evidence of subdural hematoma. No calvarial lesion is appreciated. Sinuses appear clear. MRI/Brain W/WO Contrast IMPRESSION: Nonspecific white matter plaques in the left frontal lobe. An early demyelinating disorders such as multiple sclerosis must be considered. Possibility of gliotic residua of remote traumatic event with shearing injury must be considered. Vasculitis and drug-induced phases spasm with gliotic residua of the less likely. Clinical and laboratory correlation suggested. Reading Location: [place] [address] CC: Dr. Anirudh Jerez MD; Dr. Cecilio Dove MD Information Architect: Signed Normal [facility] Comprehensive Metabolic Prof ilon 06-10-2024 Albumin [Mass/Vol] 4.0 g/dL Normal 3.5-5.0 [facility] Comment on above: Order Comment: Order Date: 06/09/24 Order Info: 07- - CMP Order Info: - LIPID Order Info: 3 - TSH Order Info: 302-7 - T4F Performed By: #### L 500.4050, L501.9520, L500.4100, L3100.5310, L501.9985, L506.0400 #### [facility] [address] [place], [place], [address] Albumin/Globulin [Mass ratio] 1.4 {ratio} Normal 0.9-2.4 [facility] Comment on above: Order Comment: Order Date: 06/09/24 Order Info: 785-03 - CMP Order Info: 00201-0 - LIPID Order Info: [id number] - TSH Order Info: 3024-7 - T4F Performed By: #### L 500.4050, L501.9520, L500.4100, L3100.5310, L501.9985, L506.0400 #### [facility] [address] [place], [place], [address] ALK PHOS 74 U/L Normal 35-104 [facility] Comment on above: Order Comment: Order Date: 06/09/24 Order Info: 07 - CMP Order Info: [id number] - LIPID Order Info: 3016-3 - TSH Order Info: 3024-7 - T4F Performed By: #### L 500.4050, L501.9520, L500.4100, L3100.5310, L501.9985, L506.0400 #### [facility] [address] [place], [address] ALT [Catalytic activity/Vol] 64 U/L High <=34 [facility] Comment on above: Order Comment: Order Date: 06/09/24 Order Info: 0786-1 - CMP Order Info: 77866-0 - LIPID Order Info: 3016-3 - TSH Order Info: 3024-7 - T4F Performed By: #### L 500.4050, L501.9520, L500.4100, L3100.5310, L501.9985, L506.0400 #### [facility] [address] [place], [address] AST [Catalytic activity/Vol] 35 U/L High <=31 [facility] Comment on above: Order Comment: Order Date: 06/09/24 Order Info: 785-1 - CMP Order Info: [id number] - LIPID Order Info: 3015-3 - TSH Order Info: 3024-7 - T4F Performed By: #### L 500.4050, L501.9520, L500.4100, L3100.5310, L501.9985, L506.0400 #### [facility] [address] [place], [address] Bilirubin [Mass/Vol] 0.25 mg/dL Normal 0.00-1.30 [facility] Comment on above: Order Comment: Order Date: 06/09/24 Order Info: 0786-1 - CMP Order Info: 82560-7 - LIPID Order Info: 3016-3 - TSH Order Info: 3024-7 - T4F Performed By: #### L 500.4050, L501.9520, L500.4100, L3100.5310, L501.9985, L506.0400 #### [facility] [address] [place], [address] BUN/CRE 16.2 RATIO Normal 10-20 [facility] Comment on above: Order Comment: Order Date: 06/09/24 Order Info: 0786-1 - CMP Order Info: - LIPID Order Info: [id number] - TSH Order Info: 3024-7 - T4F Performed By: #### L 500.4050, L501.9520, L500.4100, L3100.5310, L501.9985, L506.0400 #### [facility] [address] [place], [address] Calcium [Mass/Vol] 9.4 mg/dL Normal 7.6-11.0 [facility] Comment on above: Order Comment: Order Date: 06/09/24 Order Info: 785-03 - CMP Order Info: - LIPID Order Info: 3015-05 - TSH Order Info: 7 - T4F Performed By: #### L 500.4050, L501.9520, L500.4100, L3100.5310, L501.9985, L506.0400 #### [facility] [address] [place], [address] Chloride [Moles/Vol] 104 mmol/L Normal 98-108 [facility] Comment on above: Order Comment: Order Date: 06/09/24 Order Info: 785-03 - CMP Order Info: - LIPID Order Info: 3015-05 - TSH Order Info: 3024-7 - T4F Performed By: #### L 500.4050, L501.9520, L500.4100, L3100.5310, L501.9985, L506.0400 #### [facility] [address] [place], [address] CO2 [Moles/Vol] 22.8 mmol/L Normal 21.0-32.0 [facility] Comment on above: Order Comment: Order Date: 06/09/24 Order Info: 0786-1 - CMP Order Info: 64878-7 - LIPID Order Info: 3 - TSH Order Info: 3024-7 - T4F Performed By: #### L 500.4050, L501.9520, L500.4100, L3100.5310, L501.9985, L506.0400 #### [facility] [address] [place], [place], [address] Creatinine [Mass/Vol] 0.84 mg/dL Normal 0.70-1.20 [place] Comment on above: Order Comment: Order Date: 06/09/24 Order Info: 0786-1 - CMP Order Info: 00241-5 - LIPID Order Info: 3013 - TSH Order Info: 7 - T4F Performed By: #### L 500.4050, L501.9520, L500.4100, L3100.5310, L501.9985, L506.0400 #### [facility] [address] [place], [place], [address] GAP 13 Normal 5-15 [facility] Comment on above: Order Comment: Order Date: 06/09/24 Order Info: 785-1 - CMP Order Info: 13831-2 - LIPID Order Info: 3 - TSH Order Info: 7 - T4F Performed By: #### L 500.4050, L501.9520, L500.4100, L3100.5310, L501.9985, L506.0400 #### [facility] [address] [place], [place], [address] GFR/1.73 sq M.predicted among non-blacks MDRD (S/P/Bld) [Vol rate/Area] 96 mL/min/{1.73_m2} Normal >60 [facility] Comment on above: Order Comment: Order Date: 06/09/24 Order Info: 0786-1 - CMP Order Info: 95415-7 - LIPID Order Info: 30163 - TSH Order Info: 3027 - T4F Result Comment: mL/m in/1.73m2 CKD-EPI Creatinine Equation (2020) Performed By: #### L 500.4050, L501.9520, L500.4100, L3100.5310, L501.9985, L506.0400 #### [facility] [address] [place], [address] Globulin (S) [Mass/Vol] 2.8 g/dL Normal 2.2-4.2 [facility] Comment on above: Order Comment: Order Date: 06/09/24 Order Info: 0786-1 - CMP Order Info: [id number] - LIPID Order Info: 3016-3 - TSH Order Info: 3024-7 - T4F Performed By: #### L 500.4050, L501.9520, L500.4100, L3100.5310, L501.9985, L506.0400 #### [facility] [address] [place], [address] Glucose [Mass/Vol] 116 mg/dL High 70-99 [facility] Comment on above: Order Comment: Order Date: 06/09/24 Order Info: 0786- - CMP Order Info: [id number] - LIPID Order Info: 6-3 - TSH Order Info: 3024-7 - T4F Performed By: #### L 500.4050, L501.9520, L500.4100, L3100.5310, L501.9985, L506.0400 #### [facility] [address] [place], [address] Potassium [Moles/Vol] 4.2 mmol/L Normal 3.3-5.1 [place] Comment on above: Order Comment: Order Date: 06/09/24 Order Info: 0786-1 - CMP Order Info: 73462-3 - LIPID Order Info: 3016-3 - TSH Order Info: 3024-7 - T4F Performed By: #### L 500.4050, L501.9520, L500.4100, L3100.5310, L501.9985, L506.0400 #### [facility] [address] [place], [address] Sodium [Moles/Vol] 139 mmol/L Normal 133-145 [facility] Comment on above: Order Comment: Order Date: 06/09/24 Order Info: 0786-1 - CMP Order Info: 23470-2 - LIPID Order Info: 3 - TSH Order Info: 3023-7 - T4F Performed By: #### L 500.4050, L501.9520, L500.4100, L3100.5310, L501.9985, L506.0400 #### [facility] [address] [place], [address] T PROT 6.8 g/dL Normal 5.9-8.4 [facility] Comment on above: Order Comment: Order Date: 06/09/24 Order Info: 07- - CMP Order Info: - LIPID Order Info: 3015-05 - TSH Order Info: 7 - T4F Performed By: #### L 500.4050, L501.9520, L500.4100, L3100.5310, L501.9985, L506.0400 #### [facility] [address] [place], [address] Urea nitrogen [Mass/Vol] 14 mg/dL Normal 4-19 [facility] Comment on above: Order Comment: Order Date: 06/09/24 Order Info: 0786- - CMP Order Info: 18929-6 - LIPID Order Info: 3 - TSH Order Info: 30247 - T4F Performed By: #### L 500.4050, L501.9520, L500.4100, L3100.5310, L501.9985, L506.0400 #### [facility] [address] [place], [address] Hemoglobin A1con 06-10-2024 HbA1c (Bld) [Mass fraction] 6.1 % Normal <=5.6 [facility] Comment on above: Order Comment: Order Date: 06/09/24 Order Info: 4548-4 - A1C Performed By: #### L 500.4050, L501.9520, L500.4100, L3100.5310, L501.9985, L506.0400 #### [facility] [address] [place], [address] L509.6001on 06-10-2024 CORTISOL 12.80 ug/dL Normal 6.02-18.40 [facility] Comment on above: Order Comment: Order Date: 06/09/24Order Info: 86-1 - CMPOrder Info: [id number] - LIPIDOrder Info: 3015-05 - TSHOrder Info: 7 - T4F Performed By: #### L 509.6001 ####[facility] [address] [place], [address] Lipid Profileon 06-10-2024 CHOL:HDL 3.94 Normal [facility] Comment on above: Order Comment: Order Date: 06/09/24 Order Info: 785-1 - CMP Order Info: - LIPID Order Info: 3015-05 - TSH Order Info: 7 - T4F Performed By: #### L 500.4050, L501.9520, L500.4100, L3100.5310, L501.9985, L506.0400 #### [facility] [address] [place], [address] Cholesterol [Mass/Vol] 244 mg/dL High <=200 [facility] Comment on above: Order Comment: Order Date: 06/09/24 Order Info: 785-1 - CMP Order Info: 90561-9 - LIPID Order Info: 3 - TSH Order Info: 3024-7 - T4F Result Comment: Chol esterol level, Desirable <200 mg/dL Borderline high cholesterol 200-239 mg/dL High cholesterol >=240 mg/dL Recommendations of the NCEP Adult Treatment Panel for the following risk-cutoff thresholds for the [place] population. Performed By: #### L 500.4050, L501.9520, L500.4100, L3100.5310, L501.9985, L506.0400 #### [facility] [address] [place], [address] Cholesterol in HDL [Mass/Vol] 62 mg/dL Normal [facility] Comment on above: Order Comment: Order Date: 06/09/24 Order Info: 07- - CMP Order Info: - LIPID Order Info: 3015-05 - TSH Order Info: 3023-09 - T4F Result Comment: Aida onal Cholesterol Education Program (NCEP) guidelines: <40 mg/dL: Low HDL-cholesterol (major risk factor for CHD) >= 60 mg/dL: High HDL-cholesterol (negative risk factor for CHD) HDL-cholesterol is affected by a number of factors, e.g. smoking, exercise, hormones, sex and age. Performed By: #### L 500.4050, L501.9520, L500.4100, L3100.5310, L501.9985, L506.0400 #### [facility] [address] [place], [address] Cholesterol in LDL [Mass/Vol] 140 mg/dL Normal [facility] Comment on above: Order Comment: Order Date: 06/09/24 Order Info: 785-03 - CMP Order Info: - LIPID Order Info: 3015-05 - TSH Order Info: 3023-09 T4F Result Comment: Bord bylemq=011-549 mg/dL Higher Qllr=552 mg/dL or greater Performed By: #### L 500.4050, L501.9520, L500.4100, L3100.5310, L501.9985, L506.0400 #### [facility] [address] [place], [address] Cholesterol in VLDL [Mass/Vol] 43 mg/dL High 5-40 [facility] Comment on above: Order Comment: Order Date: 06/09/24 Order Info: 07 - CMP Order Info: - LIPID Order Info: 3015-05 - TSH Order Info: 3023-09 T4F Performed By: #### L 500.4050, L501.9520, L500.4100, L3100.5310, L501.9985, L506.0400 #### [facility] [address] [place], [place], [address] Triglyceride [Mass/Vol] 213 mg/dL High [facility] Comment on above: Order Comment: Order Date: 06/09/24 Order Info: 785-03 - CMP Order Info: - LIPID Order Info: 3 - TSH Order Info: 7 - T4F Result Comment: The drugs N-Acetylcysteine and Metamizole may falsely depress this assay. Normal range: <150 mg/dL Borderline High: 150-199 mg/dL High: 200-499 mg/dL Very High: >500 mg/dL Performed By: #### L 500.4050, L501.9520, L500.4100, L3100.5310, L501.9985, L506.0400 #### [facility] [address] [place], [address] T4 Free Directon 06-10-2024 T4 FREE DIRECT 0.90 ng/dL Normal 0.76-1.46 [facility] Comment on above: Order Comment: Order Date: 06/09/24 Order Info: 785-03 - CMP Order Info: - LIPID Order Info: 3015-05 - TSH Order Info: 3023-09 - T4F N Performed By: #### L 500.4050, L501.9520, L500.4100, L3100.5310, L501.9985, L506.0400 #### [facility] [address] [place], [place], [address] Thyroid Stim Hormone (TSH)on 06-10-2024 TSH 1.670 uIU/mL Normal 0.300-4.200 [facility] Comment on above: Order Comment: Order Date: 06/09/24 Order Info: 785-03 - CMP Order Info: - LIPID Order Info: 3 - TSH Order Info: 3027 - T4F Performed By: #### L 500.4050, L501.9520, L500.4100, L3100.5310, L501.9985, L506.0400 #### [facility] [address] [place], [address] Office Visiton 05-24-2024 Follow-up visit [id number] Rosy Rawls 1995 F Date Provider Department Center 05/24/2024 [id number] [facility] None No family history on file Level of Service:16297 [place] OFFICE/OUTPATIENT ESTABLISHED LOW MDM 20 MIN Reason for Visit and Comments: Follow-up [046116] - Intractable chronic migraine Normal [facility] Progress Noteon 05-24-2024 Progress Note [facility] Primary Care Physician: Anirudh Jerez MD Chief Complaint: Chief Complaint Patient presents with Follow-up Intractable chronic migraine Main Diagnosis: Diagnosis Plan 1. Intractable chronic migraine without aura and without status migrainosus History: given by the patient and EMR. EMR was personally reviewed prior to today's visit and included review of prior notes and intermediate communications. HPI: Ms. Rosy Rawls is a 29 y.o. female who is seen in the NEUROLOGY CLINIC of [facility] for complaint of headaches. Patient states that since June she has been experiencing headaches on the right temporal area. She states the area will swell and dick. She states the pain is started in the occipital region and will sometimes radiate to the right eye. She states she will experience neck pain as well. She states she has had migraines in the past but they had a different pattern. She states she used to have visual aura followed by pain. She states they were not as intense or frequent as now. Patient reports that sometimes she will still develop paresthesias and weakness in the right side of the face as well as the right arm. 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 She states that her Mother suffers from migraines. She has current associated symptoms of photophobia, phonophobia, nausea. She has had recent lab studies which returned normal. Patient is positive for anxiety, interstitial cystitis, and depression. Currently, patient is not taking any preventive medication. Patient is a non-smoker. She does hold a medical marijuana card and she smokes marijuana. She does not drink alcohol. The last visit was 04/11/2024 with this provider where the patient was continued on Ajovy for the prevention of migraine with good control. The patient received a steroid taper for an acute migraine. Headache characteristics: Description of pain: throbbing pain, bilateral in the occipital area. Duration of individual headaches: 8-36 hour(s), frequency weekly. Associated symptoms: aura, light sensitivity, nausea, and sound sensitivity . Pain relief: unable to obtain relief with OTC meds. Precipitating factors: stress. INTERVAL HISTORY: Today, the patient returns for follow up of migraine pain on current medication regimen. During the previous office appointment the patient was prescribed a steroid taper to help with migraine pain the patient was experiencing. The patient states she was unable to continue the medication due to side effects. The patient also used her Ajovy injection early and the patient tried the Reyvow samples that she was provided. The patient traveled out of the country just a couple days after her previous appointment. She states migraine pain eventually subsided. The patient reports continued weekly migraine pain. Discussed trying topiramate for the prevention of migraine which the patient agreed to trying. Patient also continues monthly Ajovy injections. For the acute treatment of migraine the patient is using Reyvow but has side effects such as fatigue. Labs were normal. The patient denies side effects from medications and no new neurological deficits. Current Headache Meds: Ajovy Nurtec Side effects: No known side effects Past Medical History: Diagnosis Date Abnormal Pap smear of cervix 2018 Anxiety Cystitis, interstitial Depression Migraine Past Surgical History: Procedure Laterality Date COLONOSCOPY COLPOSCOPY CYSTOSCOPY NERVE BLOCK (HISTORICAL) UPPER GASTROINTESTINAL ENDOSCOPY Allergies Allergen Reactions Amoxicillin Hives Egg White (Egg Protein) Hives Erythromycin Hives Other reaction(s): HIVES Penicillins Hives Other reaction(s): HIVES Sulfamethoxazole-Tri methoprim Hives Other reaction(s): hives @HOMEMEDS@ Current Outpatient Medications Medication Sig Dispense Refill drospirenone-ethinyl estradiol (Betsy, Gianvi) 3-0.02 MG tablet Take 1 tablet by mouth daily. DULoxetine (Cymbalta) [address] capsule Take 30 mg by mouth every morning. Do not crush or chew. DULoxetine (Cymbalta) [address] capsule Take 60 mg by mouth every evening. Do not crush or chew. fremanezumab (Ajovy) 225 MG/1.5ML auto-injector Inject 1 Pen (225 mg) under the skin every 30 (thirty) days. 4.5 mL 3 hydrOXYzine pamoate (Vistaril) 50 MG capsule TAKE 2 CAPSULES BY MOUTH 4 TIMES DAILY lamoTRIgine (LaMICtal) 100 MG tablet Take 100 mg by mouth every evening. melatonin 5 MG tablet 0 Refill(s) N-ACETYL CYSTEINE PO Take 1,000 mg by mouth daily. naratriptan (Amerge) 2.5 MG tablet Take 1 tablet (2.5 mg) by mouth Once as needed for migraine (july repeat x1). 9 tablet 3 ondansetron ODT (Zofran-ODT) 4 MG disintegrating tablet DISSOLVE 1 TABLET IN MOUTH EVERY 12 HOURS NEEDED FOR NAUSEA traMADol (Ultram) 50 MG tablet Ta (more content not included)... Normal [facility] MR/BMS.BPon 05-17-2024 MR/BMS.BP [address], [place] [address] OFFICE VISIT Date of Service: 05/17/24 MR#: [id number] Acct: [id number] Name: ROSY RAWLS Rep #: [id number] : 1995 Provider: Dr. Hugo Liz se, DO Age/Sex: 29/F Location: [facility].BP Status: Signed Intake Vital Signs 04/05/24 10:08 05/17/24 11:32 Height 5 ft 9 in 5 ft 9 in Weight: 226 lb BMI 33.3 BP 134/98 H Blood Pressure Location Lt brachial Position Sitting Respiration 16 Pulse 73 Pulse Source Monitor BP Intake Visit Reasons: 6 wk FU Allergies amoxicillin Allergy (Verified 04/05/24 10:10) Hives erythromycin base Allergy (Verified 04/05/24 10:10) Hives Penicillins Allergy (Verified 04/05/24 10:10) Hives sulfamethoxazole (From Bactrim) Allergy (Verified 04/05/24 10:10) Hives trimethoprim (From Bactrim) Allergy (Verified 04/05/24 10:10) Hives [facility] Medical History (Updated 04/05/24 @ 10:[address] Hugo Davey DO) Excoriation (skin-picking) disorder PTSD (post-traumatic stress disorder) Major depressive disorder, recurrent severe without psychotic features Chronic migraine Interstitial cystitis Social History Smoking Status: Never smoker HPI History of Present Illness History provided by: patient Chief complaint: med concerns HPI: Rosy Rawls is a 29 year old female who presents today for follow up evaluation. Patient reports that she has not noticed any significant benefit in regards to pain with duloxetine. Has gained 15 lbs since increasing the dose of duloxetine which she believes is the culprit. Does want to eventually discontinue, but wants to wait until after June after her candidacy for her PhD. Some reduction in migraine frequency with stopping her control. Does still feel like lamotrigine is beneficial in regards to irritability. Energy levels have been exhausted all day. Has been having continued intrusive, vivid dreams. Doesn't feel like she gets restful sleep. Continues to follow with raike and recently had an attunement, and at times this can bring up previous stress. Review of Systems Constitutional Denies: fever(s), chills, change in weight or fatigue Eyes Denies: change in vision or blurry vision Ears, Nose, Mouth, Throat Denies: throat pain, neck pain or change in hearing Cardiovascular Denies: chest pain, palpitations or dyspnea Respiratory Denies: dyspnea, cough or wheezing Gastrointestinal Denies: abdominal pain, nausea, vomiting, diarrhea or constipation Genitourinary Denies: dysuria or urinary frequency Musculoskeletal Denies: back pain, neck pain, joint pain or muscle weakness Integumentary/Breast Denies: rash or new lesions Neurological Denies: headache(s), dizziness or confusion Endocrine Denies: fatigue or excessive sweating Hematologic/Lymphati c Denies: easy bruising or easy bleeding Allergic/Immunologic Denies: wheezing Exam Mental Status Exam - Psych Appearance casually dressed Attitude guarded Activity/Motor Behavior MSE activity/motor behavior finding no adventitious movements Speech regular rate, regular volume and regular prosody Mood depressed Affect congruent Thought Process linear, logical and coherent Thought Content no delusions and no hallucinations Suicidal Ideation none Homicidal Ideation none Attention intact Concentration intact Sensorium/Orientatio n awake, alert and oriented x3 Memory/Cognition other (appropriate for stated age) Insight fair Judgement good Assessment Plan Assessment Plan (1) PTSD (post-traumatic stress disorder): Plan: - Continue duloxetine at current prescription. Will consider tapering at next appointment secondary to patient preference ???briefly discussed prazosin for nightmares (2) Excoriation (skin-picking) disorder: Plan: - fair (3) Major depressive disorder, recurrent severe without psychotic features: Plan: - see above regarding duloxetine - continue lamotrigine Coding Level of Care Code Off vis,est,level 4 Diagnoses PTSD (post-traumatic stress disorder) F43.10 Excoriation (skin-picking) disorder F42.4 Major depressive disorder, recurrent severe without psychotic features F33.2 05/17/24 1244 Date [facility] Signature: Date (if applicable) CC: [facility] 36on 04-14-2024 36 Requested Prescriptions Signed Prescriptions Disp Refills naratriptan (Amerge) 2.5 MG tablet 9 tablet 3 Sig: Take 1 tablet (2.5 mg) by mouth Once as needed for migraine (may repeat x1). Authorizing Provider: JAYE BOWLING [facility] 36 [employer] released message to patient as written. [facility] 36 Please inquire as to if the patient has tried the Reyvow sample. She can use it today if not. The patient can also use the Ajovy injection today. [facility] 36 Name of caller: Rosy Contact phone number: [phone] Relationship to Patient: patient Provider: [facility]: Neuro Chief Complaint/Reason for Call: Pt states the medication she was just prescribed on 04/11/24 has not been helping her with headaches. Please advise. Best time of day caller can be reached: any Patient advised that office/PCP has 24-48 business hours to return their call: N/A [facility] C-reactive proteinon 025 CRP [Mass/Vol] 4.1 mg/L NINF - 8.0 mg/L [facility] No Panel Informationon 04-12 [facility] Sedimentation rate, automate don 04-12-2024 ESR (Bld) [Velocity] 2 mm/h < OR = 20 [facility] Office Visiton 04-11-2024 Follow-up visit [id number] Rosy Rawls 1995 F Date Provider Department Center 04/11/2024 [id number] BOWLING [facility] P None No family history on file Level of Service:07758 [place] OFFICE/OUTPATIENT ESTABLISHED LOW MDM 20 MIN Reason for Visit and Comments: Follow-up [184148] Migraine [434565] - Worsening over last 2 weeks Normal [facility] Progress Noteon 04-11-2024 Progress Note [facility] Primary Care Physician: Anirudh Jerez MD Chief Complaint: Chief Complaint Patient presents with Follow-up Migraine Worsening over last 2 weeks Main Diagnosis: Diagnosis Plan 1. Intractable chronic migraine without aura and without status migrainosus History: given by the patient and EMR. EMR was personally reviewed prior to today's visit and included review of prior notes and intermediate communications. HPI: Ms. Rosy Rawls is a 29 y.o. female who is seen in the NEUROLOGY CLINIC of [facility] for complaint of headaches. Patient states that since June she has been experiencing headaches on the right temporal area. She states the area will swell and dick. She states the pain is started in the occipital region and will sometimes radiate to the right eye. She states she will experience neck pain as well. She states she has had migraines in the past but they had a different pattern. She states she used to have visual aura followed by pain. She states they were not as intense or frequent as now. Patient reports that sometimes she will still develop paresthesias and weakness in the right side of the face as well as the right arm. 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 She states that her Mother suffers from migraines. She has current associated symptoms of photophobia, phonophobia, nausea. She has had recent lab studies which returned normal. Patient is positive for anxiety, interstitial cystitis, and depression. Currently, patient is not taking any preventive medication. Patient is a non-smoker. She does hold a medical marijuana card and she smokes marijuana. She does not drink alcohol. The last visit was 04/16/2023 with this provider where the patient was continued on Ajovy for the prevention of migraine with good control. Headache characteristics: Description of pain: throbbing pain, bilateral in the occipital area. Duration of individual headaches: 8-36 hour(s), frequency weekly. Associated symptoms: aura, light sensitivity, nausea, and sound sensitivity . Pain relief: unable to obtain relief with OTC meds. Precipitating factors: stress. INTERVAL HISTORY: Today, the patient returns for follow up of migraine pain on current medication regimen. The patient states today migraines have increased over the last 2 weeks. The patient reports experiencing photophobia, nausea, right ear pain and right jaw pain. The patient also reports water draining from ears. The patient denies head congestion. The patient states she was without Ajovy injections for a few weeks and then developed severe migraine pain. The patient reports trying over the counter medications, Nurtec and zofran with no relief of pain and nausea. The patient last used Ajovy on the first of the month. She is scheduled to leave the country for a wedding on Thursday. Discussed starting a steroid taper and receiving an injection with ketorolac to help break the current migraine cycle. Advised the patient a prescription for rizatriptan will be provided for the acute treatment of migraine and sample of Reyvow to trylater in the week if other interventions are not effective. The patient agreed and verbalized understanding. The patient was advised she can use Ajovy before leaving to go out of the country on Thursday as well. The patient agreed and verbalized understanding. Lab orders will be placed to look for inflammation causing recent increase in migraine pain. The patient denies side effects from medications and no new neurological deficits. Current Headache Meds: Ajovy Nurtec Side effects: No known side effects Past Medical History: Diagnosis Date Abnormal Pap smear of cervix 2018 Anxiety Cystitis, interstitial Depression Migraine Past Surgical History: Procedure Laterality Date COLONOSCOPY COLPOSCOPY CYSTOSCOPY NERVE BLOCK (HISTORICAL) UPPER GASTROINTESTINAL ENDOSCOPY Allergies Allergen Reactions Amoxicillin Hives Egg White (Egg Protein) Hives Erythromycin Hives Other reaction(s): HIVES Penicillins Hives Other reaction(s): HIVES Sulfamethoxazole-Tri methoprim Hives Other reaction(s): hives @HOMEMEDS@ Current Outpatient Medications Medication Sig Dispense Refill drospirenone-ethinyl estradiol (Betsy, Gianvi) 3-0.02 MG tablet Take 1 tablet by mouth daily. DULoxetine (Cymbalta) [address] capsule Take 30 mg by mouth every morning. Do not crush or chew. DULoxetine (Cymbalta) [address] capsule Take 60 mg by mouth every evening. Do not crush or chew. fremanezumab (Ajovy) 225 MG/1.5ML auto-injector Inject 1 Pen (225 mg) under the skin every 30 (thirty) days. 4.5 mL 3 hydrOXYzine pamoate (Vistaril) 50 MG capsule TAKE 2 CAPSULES BY MOUTH 4 TIMES DAILY lamoTRIgine (LaMICtal) 100 MG tablet Take 100 mg by mouth every evening. melatonin 5 (more content not included)... Normal [facility] MR/BMS.BPon 04-05-2024 MR/BMS.BP [facility] [address] [place] [address], [address] [place] [address] OFFICE VISIT Date of Service: 04/05/24 MR#: [id number] Acct: [id number] Name: ROSY RAWLS Rep #: [id number] : 1995 Provider: Dr. Hugo Liz se, DO Age/Sex: 29/F Location: [facility].BP Status: Signed Intake Vital Signs 01/14/23 00:17 12/16/23 10:30 04/05/24 10:08 Height 5 ft 9 in 5 ft 9 in 5 ft 9 in Weight: 226 lb BMI 33.3 BP 134/98 H Blood Pressure Location Lt brachial Position Sitting Respiration 16 Pulse 73 Pulse Source Monitor BP Intake Visit Reasons: eval Accompanied by: Self Allergies amoxicillin Allergy (Verified 04/05/24 10:10) Hives erythromycin base Allergy (Verified 04/05/24 10:10) Hives Penicillins Allergy (Verified 04/05/24 10:10) Hives sulfamethoxazole (From Bactrim) Allergy (Verified 04/05/24 10:10) Hives trimethoprim (From Bactrim) Allergy (Verified 04/05/24 10:10) Hives Medications ???Medication ???Instructions ???Recorded ???Confirmed ???Type L norgest/E estradiol-E estrad 1 tab PO DAILY 01/14/23 04/05/24 History 0.15 mg-30 mcg (84)/10 mcg(7) tabs,3mos (Amethia) MEDICAL MARIJUANA 01/14/23 04/05/24 History fremanezumab-vfrm 225 mg/1.5 mL 225 mg subcut QMONTH PRN migraine 01/14/23 04/05/24 History subcutaneous auto-injector (Ajovy) headache duloxetine 30 mg capsule,delayed 90 mg (3 x 30 mg) PO DAILY 30 days 04/05/24 04/05/24 Rx release (Cymbalta) #90 caps hydroxyzine pamoate 50 mg capsule 50 mg PO Q8H PRN anxiety 30 days 04/05/24 04/05/24 Rx #90 caps lamotrigine 100 mg tablet 100 mg PO DAILY 30 days #30 tabs 04/05/24 04/05/24 Rx (Lamictal) trazodone 50 mg tablet 50 mg PO QHS 30 days #30 tabs 04/05/24 04/05/24 Rx PFSH Medical History (Updated 04/05/24 @ 10:[address] Hugo Davey, DO) Excoriation (skin-picking) disorder PTSD (post-traumatic stress disorder) Major depressive disorder, recurrent severe without psychotic features Chronic migraine Interstitial cystitis Social History Smoking Status: Never smoker HPI History of Present Illness History provided by: patient Chief complaint: Depression/skin picking HPI: Rosy Rawls is a 29 year old female who presents today for new patient evaluation. Patient reports that 2023 was kind of fu up for me. Admits that she was having repressed memories of showering with father as a child. This caused some significant anxiety and was brought about by doing Raike. Does follow with a Shaman for this. Had increased thoughts of self harm and was scratching and hitting self. Had done this in the past, but this was much more severe. Also was having thoughts of suicide with plan to commit suicide with helium. Patients did take her to [facility] for psychiatric admission which she states was extremely traumatic. Reports that she didn't take any medications when there and didn't sleep much of the time she was there. Went through withdrawal from her duloxetine. Was also not given any control. Has since cut her parents off and they came to her house and screamed at her through her window. Has not talked to parents since October. Went to [facility] and was doing well in IOP. States that she stopped smoking marijuana and was very irritable and was asked to not come back. [place] that her issues were minimized after this point. Admits to having chronic migraines and has had regular headaches since last . Last self harmed about 2 weeks ago. Feels like she does a little bit better than something will happen that will cause worsening symptoms. Describes mood right now as complacent to the shit. Feels like she is wired to be unhappy. Has not slept since stopping smoking weed. Was previously smoking nearly an oz a week. Just recently started Ajovy for migraines. Admits to having skin picking since a young age. Generally on her face. Has started taking memantine and tried NAC in the past. Did have some worsening suicidal ideation after having starting semaglutide. Sleep: worse since stopping smoking weed; total of 5 broken hours Interest: enjoys singing but this is short lived Guilt: admits to general sense of guilt, describes worthlessness Energy: not horrible, but not great Concentration: fair Appetite: normal since quitting smoking weed Psychomotor: mildly agitated Suicide: denies currently, does have self harm urges Memory: terrible, horrible describes blacked out periods of her childhood, forgetful Anxiety: admits to some significant anxiety, intermittent panic attacks Obsessions: sometimes intrusive violent thoughts,distressing , skin picking Compulsions: distress related Deshawn: denies symptoms of deshawn in the past PTSD: admits to having significant childhood trauma admits to having bl (more content not included)... Normal [facility] 36on 02-15-2024 36 Requested Prescriptions Signed Prescriptions Disp Refills fremanezumab (Ajovy) 225 MG/1.5ML auto-injector 4.5 mL 3 Sig: Inject 1 Pen (225 mg) under the skin every 30 (thirty) days. Authorizing Provider: JAYE BOWLING [facility] 36 [facility] has obtained approved for Ajovy and pended Rx. Please route to [facility] 36on 02-12-2024 36 I can print off this form. I just want to double check that this isnt something [facility] helps with. Patient is requesting TEVA rom gets filled out to help pay for Ajovy. [facility] 36 Name of caller: Rosy Contact phone number: [phone] Relationship to Patient: patient Provider: [facility]: [facility] NEURO Chief Complaint/Reason for Call: Pt states she received a call from [facility] who advised that they have not been able to get in contact with anyone at the office. Pt states that an attempt was even made today. Pt states she was advised that the form can be found and downloaded off of their website and faxed back to them for processing. Pt provided website [employer] and fax# [phone]. Pt states she would like to be notified once this has been completed. Pt states she has chronic migraines and really needs for this to be completed as soon as possible. Please review. Best time of day caller can be reached: any Patient advised that office/PCP has 24-48 business hours to return their call: Yes [facility] 36on 02-03-2024 36 Called and left message with [employer]. Will provide information once they call back [place] [address]on 02-01-2024 36 Name of caller: Rosy Contact phone number: [phone] Relationship to Patient: patient Provider: LEX[facility] Practice: Neuro Chief Complaint/Reason for Call: Rosy said that [facility] to see about the forms and to discuss the patient. Non one answered or responded. She would like a call to the [facility] at [phone] so she can be set up. Please advise. Best time of day caller can be reached: any Patient advised that office/PCP has 24-48 business hours to return their call: Yes [place] [address]on 01-11-2024 36 Noted. [place] [address] FYI: Name of caller: Rosy Contact phone number: [phone] Relationship to Patient: patient Provider: [facility]: [facility] Chief Complaint/Reason for Call: Patient states that her insurance will no longer cover Ajovy and she is in the middle of the try and fail stage currently trying Emgality, which is not working at all. Patient states that instead of going three months in pain to complete the try and fail medications she would like to sign up with [facility] to get payment assistance for the Ajovy since it worked so well. Patient states that a [facility] disability representative will be reaching out to the office to request an active prescription. Please advise. Best time of day caller can be reached: Any Patient advised that office/PCP has 24-48 business hours to return their call: No [facility]on 12-08-2023 36 Requested Prescriptions Signed Prescriptions Disp Refills galcanezumab (Emgality) 120 MG/ML auto-injector 2 mL 0 Sig: Inject 2 pens (240 mg) under the skin once for first month loading dose. Authorizing Provider: JAYE BOWLING galcanezumab (Emgality) 120 MG/ML auto-injector 3 mL 3 Sig: Inject 1 pen (120 mg) under the skin every 30 days. Authorizing Provider: JAYE BOWLING [facility] 36 Ajovy PA denied. Insurance message: The request for coverage for AJOVY INJ 225/1.5, use as directed (1.5 per month), is denied. This decision is based on health plan criteria for AJOVY INJ 225/1.5. This medicine is covered only if: You have failed (after a trial of at least three months) or cannot use both of the following (document date tried): (A) Aimovig (B) Emgality 120mg The information provided does not show that you meet the criteria listed above Emgality is most similar mechanistically. Pended RX for loading and maintenance dose. Approve if appropriate. [facility] No Panel InformationOrdered By: Oj Li on 09-16-2023 P [place] 57 degrees [employer] Phone: AK Interval 147 ms [employer] Phone: QRS [place] 60 degrees [employer] Phone: QRSD Interval 69 ms [facility] Work Phone: QT Interval 346 ms [facility] Work Phone: QTC Interval 442 ms [facility] Your [employer] Work Phone: T Wave [place] 32 degrees [employer] Work Phone: [facility] Work Phone: No Panel Informationon 09-15 Sinus rhythm Electronically Signed On 09-16-2023 03:09:03 EDT by jO Li CV Oj Gilmore MD - 09/16/2023 IMPRESSION: Sinus rhythm Electronically Signed On 09-16-2023 03:09:03 EDT by Oj Li [employer] Vital signsOrdered By: Oj Li on 09-16-2023 Heart rate 98 /min bpm [employer] Work Phone: CBC W Auto Differential pane l (Bld)Ordered By: Janna Nixon on 09-15-2023 Basophils (Bld) [#/Vol] 0.0 10*3/uL 0.0 - 0.2 10*3/uL [employer] Basophils/100 WBC (Bld) 0.3 % 0.0 - 2.0 % [facility] [employer] Eosinophils (Bld) [#/Vol] 0.1 10*3/uL 0. 0 - 0.5 10*3/uL [employer] Eosinophils/100 WBC (Bld) 0.8 % 0.0 - 6.0 % [employer] Erythrocyte distribution width (RBC) [Ratio] 12.3 % 11.5 - 15.0 % [employer] Hematocrit (Bld) [Volume fraction] 40.6 % 35.0 - 47.0 % [employer] Hemoglobin (Bld) [Mass/Vol] 14.3 g/dL 11.7 - 16.0 g/dL [employer] Immature granulocytes (Bld) [#/Vol] 0.0 10*3/uL NINF - 0.1 10*3/uL [employer] Immature granulocytes/100 WBC (Bld) 0.2 % 0.0 - 2.0 % [facility] Interpretation and review of laboratory results Normal [facility] th Lymphocytes (Bld) [#/Vol] 3.1 10*3/uL 1. 0 - 4.3 10*3/uL [facility] Lymphocytes/100 WBC (Bld) 31.1 % 15 .0 - 45.0 % [facility] MCH (RBC) [Entitic mass] 30.5 pg 26. 0 - 34.0 pg [facility] MCHC (RBC) [Mass/Vol] 35.2 % 30.5 - 36.0 % [facility] MCV (RBC) [Entitic vol] 86.6 fL 77.0 - 99.0 fL [facility] Monocytes (Bld) [#/Vol] 0.9 10*3/uL 0.0 - 0.9 10*3/uL [facility] Monocytes/100 WBC (Bld) 8.8 % 5.0 - 13.0 % [facility] Neutrophils (Bld) [#/Vol] 5.8 10*3/uL 1. 8 - 7.5 10*3/uL [facility] Neutrophils/100 WBC (Bld) 58.8 % 38 .0 - 82.0 % [facility] Nucleated RBC/100 WBC (Bld) [Ratio] 0.0 % [facility] Platelet mean volume (Bld) [Entitic vol] 9.4 fL 9.0 - 12.7 fL [facility] Platelets (Bld) [#/Vol] 234 10*3/uL 140 - 440 10*3/uL [facility] RBC (Bld) [#/Vol] 4.69 10*6/uL 3.80 - 5.2 0 10*6/uL [facility] WBC (Bld) [#/Vol] 9.8 10*3/uL 3.6 - 10.7 10*3/uL [facility] Comprehensive metabolic 1998 panelon 09-15-2023 Albumin [Mass/Vol] 4.5 g/dL 3.5 - 5.0 g/dL [facility] ALP [Catalytic activity/Vol] 61 U/L 38 - 126 U/L [facility] ALT [Catalytic activity/Vol] 47 U/L High 0 - 34 U/L [facility] Anion gap [Moles/Vol] 11 mmol/L 3 - 13 mmol/L [facility] AST [Catalytic activity/Vol] 43 U/L 15 - 46 U/L [facility] Bilirubin [Mass/Vol] 1.0 mg/dL 0.2 - 1 .3 mg/dL [facility] Calcium [Mass/Vol] 9.7 mg/dL 8.4 - 10. 4 mg/dL [facility] Chloride [Moles/Vol] 107 mmol/L 98 - 10 7 mmol/L [facility] CO2 [Moles/Vol] 17 mmol/L Low 22 - 30 mmol/L [facility] Creatinine [Mass/Vol] 0.80 mg/dL 0.52 - 1.04 mg/dL [facility] GFR/1.73 sq M.predicted MDRD (S/P/Bld) [Vol rate/Area] - PINF [facility] Comment on above: Calculation based on the Chronic Kidney Disease Epidemiology Collaboration (CKD-EPI) equation refit without adjustment for race Glucose [Mass/Vol] 98 mg/dL 70 - 100 mg/dL [facility] Interpretation and review of laboratory results Abnormal [facility] Potassium [Moles/Vol] 3.9 mmol/L 3.5 - 5.1 mmol/L [facility] Protein [Mass/Vol] 7.7 g/dL 6.3 - 8.2 g/dL [facility] Sodium [Moles/Vol] 136 mmol/L 135 - 145 mmol/L [facility] Urea nitrogen [Mass/Vol] 9 mg/dL 7 - 17 mg/d L [facility] Ethanol (Bld) [Mass/Vol]on 0 09-15-2023 Ethanol [Mass/Vol] g/dL 0.000 - 0.010 g/dL [facility] Interpretation and review of laboratory results Normal [facility] Laboratory - Chemistry and C hemistry - challengeOrdered By: Georgette Jenkins on 09-15-2023 Beta HCG ( test) Ql Negative Negative [facility] Comment on above: Please note: Very di lute urine specimens, as indicated by a low specific gravity, may not contain disability representative levels of hCG. If is still suspected, a first morning urine specimen should be collected 48 hours later and tested. Beta HCG ( test) Ql (U) is the most common reason for HCG in urine, although choriocarcinoma, hydatidiform mole, and certain nontrophoblastic malignancies also result in detectable urinary HCG levels. Sensitivity = 20mIU/mL. [facility] Laboratory - Drug toxicology Ordered By: Lisa Srinivasan on 09-15-2023 Amphetamines Screen method >1000 ng/mL Ql (U) Negative [facility] Barbiturates Screen method >200 ng/mL Ql (U) Negative [facility] Benzodiazepines Ql (U) Negative [facility] Methadone Screen Ql (U) Negative [facility] Opiates Screen Ql (U) Negative [facility] oxyCODONE Ql (U) Negative [facility] Phencyclidine Ql (U) Negative [facility] Laboratory - Microbiology an d Antimicrobial susceptibilityOrdered By: Nichole Feng on 09-15-2023 SARS-CoV-2 (COVID-19) Ag IA.rapid Ql (Resp) Negative Negative [facility] Comment on above: A negative result do es not rule out the possibility of SARS-CoV-2 infection. NAAT-based methods should be considered for symptomatic patients presenting greater than seven days after onset of symptoms. Method: Lateral flow immunoassay. Fact sheets for healthcare providers and patients can be found at the following sites: https://www.fda.gov/media/122454/download https://www.[place].gov/media/536888/download No Panel InformationOrdered By: Lisa Srinivasan on 09-15-2023 COCAINE METAB. SCREEN Negative [facility] The expected value for all of the drugs listed above is Negative. The following drugs or drug groups have been screened for by Immunoassay at the following thresholds: Amphetamine class (1000 ng/mL) Barbiturates (200 ng/mL) Benzodiazepines (200 ng/mL) Cocaine (300 ng/mL) Methadone (300 ng/mL) Opiates (300 ng/mL) Oxycodone (100 ng/mL) PCP (25 ng/mL) NOTE: These results are for medical treatment only. Analysis performed using non-forensic procedures. POSITIVE results are NOT confirmed by a more specific alternative method unless requested. If confirmation is needed, request confirmation under separate order. [facility] No Panel InformationOrdered By: Georgette Jenkins on 09-15-2023 [facility] No Panel Informationon 09-14 [facility] SARS-CoV-2 (COVID-19) Ag IA. rapid Ql (Resp)Ordered By: Nichole Feng on 09-15-2023 Interpretation and review of laboratory results Normal [facility] Urinalysis complete panel (U )Ordered By: Sofía Torres on 09-15-2023 Bacteria LM.HPF (Urine sed) [#/Area] Few Abnormal Negative /HPF [facility] Bilirubin Ql (U) Negative Negative mg/dL [facility] Clarity (U) Turbid Abnormal Clear [facility] Color (U) Yellow Lt. Yellow [facility] Epithelial cells.squamous LM.HPF (Urine sed) [#/Area] 6-10 Abnormal [facility] Glucose Ql (U) Normal Normal (<70) mg/dL [facility] Hemoglobin Ql (U) Negative Negative mg/dL [facility] Interpretation and review of laboratory results Abnormal [facility] Ketones (U) [Mass/Vol] 80 mg/dL Abnormal Negative [facility] Leukocyte esterase Test strip Ql (U) 250 Abnormal Negative Natalio/uL [facility] Mucus LM.HPF (Urine sed) [#/Area] Few Negative /LPF [facility] Nitrite Ql (U) Negative Negative [facility] pH (U) 8.0 [pH] 5.0 - 8.0 pH [facility] Protein (U) [Mass/Vol] 50 mg/dL Abnormal Negative [facility] RBC LM.HPF (Urine sed) [#/Area] 11-25 Abnormal [facility] Specific gravity (U) [Rel density] 1.025 1.005 - 1.030 [facility] Urobilinogen (U) [Mass/Vol] Normal Normal (0-1) mg/dL [facility] WBC LM.HPF (Urine sed) [#/Area] 3-5 [facility] Neisseria gonorrhoeae genita l PCROrdered By: Anirudh Jerez on 03-17-2023 N. gonorrhoeae DNA KALLIE+probe Ql (Genital specimen) [facility] No Panel InformationOrdered By: Anirudh Jerez on 03-17-2023 Chlamydia trachomatis (PCR) [facility] Trichomonas vaginalis DNA [facility] Comprehensive metabolic 2000 panelon 01-28-2023 Albumin [Mass/Vol] 4.2 g/dL Normal 3.9-4.9 [facility] Comment on above: Order Comment: Speci men Type: BLOOD SPECIMENOrdering Facility: [facility] Address: [address], [place] [address] Performed By: #### 2 4323-8 ####[facility] LABIA [id number] [address] [address] [place] ALP [Catalytic activity/Vol] 61 U/L Normal 34-123 [facility] Comment on above: Order Comment: Speci men Type: BLOOD SPECIMENOrdering Facility: [facility] Address: [address], [place] [address] Performed By: #### 2 4323-8 ####[facility] LABIA [id number] [place] [address] [place] ALT [Catalytic activity/Vol] 19 U/L Normal 7-38 [facility] Comment on above: Order Comment: Speci men Type: BLOOD SPECIMENOrdering Facility: [facility] Address: [address], [place] [address] Performed By: #### 2 4323-8 ####[facility] LABIA [id number] [place] [id number] [place] Anion gap [Moles/Vol] 13 mmol/L Normal 9-18 [facility] Comment on above: Order Comment: Speci men Type: BLOOD SPECIMENOrdering Facility: [facility] Address: [address], [place] [address] Performed By: #### 2 4323-8 ####[facility]IA [id number] [address] [address] [place] AST [Catalytic activity/Vol] 14 U/L Normal 13-35 [facility] Comment on above: Order Comment: Speci men Type: BLOOD SPECIMENOrdering Facility: [facility] Address: [address], [place] [address] Performed By: #### 2 4323-8 ####[facility] LABCLIA [id number] [address] [address] [place] Bilirubin [Mass/Vol] 0.2 mg/dL Normal 0.2-1.3 [facility] Comment on above: Order Comment: Speci men Type: BLOOD SPECIMENOrdering Facility: [facility] Address: [address], [place] [address] Performed By: #### 2 4323-8 ####[facility] LABCLIA [id number] [address] [address] [place] Calcium [Mass/Vol] 9.8 mg/dL Normal 8.5-10.2 [facility] Comment on above: Order Comment: Speci men Type: BLOOD SPECIMENOrdering Facility: [facility] Address: [address], [place] [address] Performed By: #### 2 4323-8 ####[facility] LABCLIA [id number] [address] [address] [place] Chloride [Moles/Vol] 103 mmol/L Normal 97-105 [facility] Comment on above: Order Comment: Speci men Type: BLOOD SPECIMENOrdering Facility: [facility] Address: [address], [place] [address] Performed By: #### 2 4323-8 ####[facility] LABCLIA [id number] [address] [address] [place] CO2 [Moles/Vol] 19 mmol/L Low 22-30 [facility] Comment on above: Order Comment: Speci men Type: BLOOD SPECIMENOrdering Facility: [facility] Address: [address], [place] [address] Performed By: #### 2 4323-8 ####[facility] LABCLIA [id number] [address] [address] [place] Creatinine [Mass/Vol] 0.88 mg/dL Normal 0.58-0.96 [facility] Comment on above: Order Comment: Violet bonilla Type: BLOOD SPECIMENOrdering Facility: [facility] Address: [address] [place] [address] Performed By: #### 2 4323-8 ####[facility]IA [id number] [place] [id number] [facility] [place] Creatinine and Glomerular filtration rate.predicted panel (S/P/Bld) 93 mL/min/1.73m??? Normal >=60 [facility] Comment on above: Order Comment: Violet bonilla Type: BLOOD SPECIMENOrdering Facility: [facility] Address: [address] [place] [address] Result Comment: Loren mated Glomerular Filtration Rate (eGFR) is calculated using the 2020 CKD-EPI creatinine equation. This equation utilizes serum creatinine, sex, and age as parameters. The creatinine assay has traceable calibration to isotope dilution-mass spectrometry. Refer to KDIGO guidelines for clinical interpretation. In patients with unstable renal function, e.g. those with acute kidney injury, the eGFR may not accurately reflect actual GFR. Performed By: #### 2 4323-8 ####[facility]IA [id number] [place] [id number] [place] Glucose [Mass/Vol] 109 mg/dL High 74-99 [facility] Comment on above: Order Comment: Speci men Type: BLOOD SPECIMENOrdering Facility: [facility] Address: [address] [place] [address] Result Comment: The [place] Diabetes Association (ADA) provides guidance for cutoff values for fasting glucose and random glucose. The ADA defines fasting as no caloric intake for at least 8 hours. Fasting plasma glucose results between 100 to 125 mg/dL indicate increased risk for diabetes (prediabetes). Fasting plasma glucose results greater than or equal to 126 mg/dL meet the criteria for diagnosis of diabetes. In the absence of unequivocal hyperglycemia, results should be confirmed by repeat testing. In a patient with classic symptoms of hyperglycemia or hyperglycemic crisis, random plasma glucose results greater than or equal to 200 mg/dL meet the criteria for diagnosis of diabetes. Reference: Standards of Medical Care in Diabetes 2016, [place] [employer] Association. Diabetes Care. 2016.39(Suppl 1). Performed By: #### 2 4323-8 ####[facility] LABCLIA [id number] [address] [address] [place] Potassium [Moles/Vol] 4.9 mmol/L Normal 3.7-5.1 [facility] Comment on above: Order Comment: Speci men Type: BLOOD SPECIMENOrdering Facility: [facility] Address: [address] [place] [address] Performed By: #### 2 4323-8 ####[facility] LABCLIA [id number] [place] [id number] [place] Protein [Mass/Vol] 7.3 g/dL Normal 6.3-8.0 [facility] Comment on above: Order Comment: Speci men Type: BLOOD SPECIMENOrdering Facility: [facility] Address: [address] [place] [address] Performed By: #### 2 4323-8 ####[facility] LABCLIA [id number] [address] [address] [place] Sodium [Moles/Vol] 135 mmol/L Low 136-144 [facility] Comment on above: Order Comment: Speci men Type: BLOOD SPECIMENOrdering Facility: [facility] Address: [address] [place] [address] Performed By: #### 2 4323-8 ####[facility] LABCLIA [id number] [address] [address] [place] Urea nitrogen [Mass/Vol] 19 mg/dL Normal 7-21 [facility] Comment on above: Order Comment: Speci men Type: BLOOD SPECIMENOrdering Facility: [facility] Address: [facility] [place] [address] Performed By: #### 2 4323-8 ####[facility] LABCLIA [id number] [facility] [id number] [place] [address] [place] Absolute lymphocyte countOrd ered By: Jonathan Ernst on 01-14-2023 Lymphocytes Auto (Unsp spec) [#/Vol] 4.09 10*3/uL 0.83-4.51 [facility] Basophil percentageOrdered B y: Jonathan Ernst on 01-14-2023 Basophils/100 WBC (Bld) 0.4 % 0-1 [facility] Chloride [Moles/Vol] 111 mmol/L 98-107 [facility] Eosinophils/100 WBC (Bld) 1.1 % 0-5 [facility] Glucose [Mass/Vol] 132 mg/dL 74-106 [facility] Comment on above: Fasting Glucose resu lt greater than or equal to 126 mg/dL suggests DIABETES MELLITUS per A.D.A. criteria. Neutrophils (Bld) [#/Vol] 8.9 10*3/uL 2.0-7.7 [facility] Neutrophils/100 WBC (Bld) 61.6 % 47-70 [facility] Potassium [Moles/Vol] 3.7 mmol/L 3.5-5.1 [place] Sodium [Moles/Vol] 140 mmol/L 136-145 [facility] WBC (Bld) [#/Vol] 14.5 10*3/uL 4.4-11.0 [facility] Blood erythrocytes count (nu mber/volume)Ordered By: Jonathan Ernst on 01-14-2023 RBC (Bld) [#/Vol] 4.61 10*6/uL 4.2-5.4 [facility] Blood hemoglobin measurement (mass/volume)Ordered By: Jonathan Ernst on 01-14-2023 Hemoglobin (Bld) [Mass/Vol] 14.2 g/dL 12.0-15.0 [facility] Blood lymphocytes/100 leukoc ytesOrdered By: Jonathan Ernst on 01-14-2023 Lymphocytes/100 WBC (Bld) 28.2 % 19-41 [facility] Blood monocytes/100 leukocyt esOrdered By: Jonathan Ernst on 01-14-2023 Monocytes/100 WBC (Bld) 8.4 % 0-10 [facility] Blood platelet mean volumeOr dered By: Jonathan Ernst on 01-14-2023 Platelet mean volume (Bld) [Entitic vol] 9.9 fL 6.2-12.0 [facility] Determination of erythrocyte mean corpuscular volume (MCV)Ordered By: Jonathan Ernst on 01-14-2023 MCV (RBC) [Entitic vol] 90.7 fL 81-99 [facility] Hematocrit Auto (Bld) [Volum e fraction]Ordered By: Jonathan Ernst on 01-14-2023 Hematocrit (Bld) [Volume fraction] 41.8 % 37-47 [facility] Laboratory - Chemistry and C hemistry - challengeOrdered By: Jonathan Ernst on 01-14-2023 CO2 [Moles/Vol] 23.0 mmol/L 21.0-32.0 [facility] Urea nitrogen/Creatinine [Mass ratio] 19.9 mg/mg 10-20 [facility] Laboratory - Hematology and Cell countsOrdered By: Jonathan Ernst on 01-14-2023 Erythrocyte distribution width (RBC) [Entitic vol] 44.7 fL 35.1-43.9 [facility] Erythrocyte distribution width (RBC) [Ratio] 13.3 % 11.6-14.6 [facility] Immature granulocytes/100 WBC (Bld) 0.300 % 0.0-0.9 [facility] Comment on above: IG% - Immature Granu locytes (promyelocytes, myelocytes and metamyelocytes) > 1% indicates that a LEFT SHIFT is Present. MCH (RBC) [Entitic mass] 30.8 pg 27.0-32.0 [facility] Nucleated RBC/100 WBC (Bld) [Ratio] 0 % 0-5 [facility] MCHC Auto (RBC) [Mass/Vol]Or dered By: Jonathan Ernst on 01-14-2023 MCHC (RBC) [Mass/Vol] 34.0 g/dL 32-36 [place] No Panel InformationOrdered By: Jonathan Ernst on 01-14-2023 Estimated Creatinine Clearance Calc 98.13 ml/min [facility] Estimated GFR (MDRD) Amer 96 mL/min >60 [facility] Comment on above: GFR Calc Estimated GFR (MDRD) Non-Af Amer 79 mL/min >60 [facility] Comment on above: Non- GFR Calc Platelets bldOrdered By: Osbaldo Ernst on 01-14-2023 Platelets (Bld) [#/Vol] 227 10*3/uL 150-450 [facility] Serum or plasma calcium karthikeyan urement (mass/volume)Ordered By: Jonathan Enrst on 01-14-2023 Calcium [Mass/Vol] 9.2 mg/dL 8.5-10.1 [facility] Serum or plasma creatinine m easurement (mass/volume)Ordered By: Jonathan Ernst on 01-14-2023 Creatinine [Mass/Vol] 0.90 mg/dL 0.55-1.02 [place] Comment on above: The validity of the calculated GFR & GFRAA in patients over 70 years has not been determined. Clinical correlation is essential. Serum or plasma urea nitroge n measurement (mass/volume)Ordered By: Jonathan Ernst on 01-14-2023 Urea nitrogen [Mass/Vol] 18 mg/dL 7-18 [facility] Thin prep Papanicolaou smear with manual screeningOrdered By: Jonathan Ernst on 01-14-2023 Thin prep Papanicolaou smear with manual screening 6 5-15 [facility] CNOVon 08-15-2022 CNOV Office Visit ([facility]) ROSY RAWLS ([id number]) 1995 F Date Time Provider Department 08/15/22 8:45 AM SANTI COLUNGA [facility] During your visit today, we recorded the following information about you: Temperature Pulse Respiration Blood pressure 98.2 degrees 117/minute 18/minute 130/78 Santi Colunga APRN.CNP 08/15/2022 10:14 AM Signed Subjective HPI Nontoxic-appearing female presents urgent care chief complaint left ankle injury. Duration of symptoms 1 day. Associated symptoms left ankle pain. Patient states she was playing volleyball yesterday when she inverted her ankle. Was able to finish the game. Later on that night she noticed some swelling and bruising to the lateral malleolus. Presents today for evaluation. Has been using ice this is helped. She is having a hard time bearing weight. No numbness no tingling. No decrease sensation. Denies fractures or surgeries to this ankle in the past. Denies chance of . Past medical history prescription medication use allergies reviewed. .Patient presents with: Pain: Pt reported (LT) ankle injury during sports activity, x1 day. PAST MEDICAL HISTORY Diagnosis Date Interstitial cystitis History reviewed. No pertinent surgical history. ALLERGIES Amoxicillin, Bactrim [Sulfamethoxazole-Tr imethoprim], Eggs [Egg], Epinephrine, Erythromycin, and Penicillins MEDICATIONS ARIPiprazole (ABILIFY) 2 mg tablet Take 2 mg by mouth daily at bedtime. Clindamycin Phosphate (CLEOCIN T) 1 % lotion hydroxyzine pamoate (VISTARIL ORAL) Take 100 mg by mouth. Norethindrone Acet-Ethinyl Est 1-20 mg-mcg per tablet Take 1 tablet by mouth once daily. duloxetine HCl (DULOXETINE ORAL) Take by mouth. traZODone (DESYREL) 100 mg tablet Take 100 mg by mouth daily at bedtime. fremanezumab-vfrm subcutaneus auto-injector 225 mg/1.5 mL (AJOVY) oxybutynin XL (DITROPAN XL) 5 mg 24 hr tablet Take 1 tablet by mouth once daily. spironolactone (ALDACTONE) 25 mg tablet Take 25 mg by mouth twice daily. (Patient not taking: Reported on 08/15/2022) fluconazole (DIFLUCAN) 150 mg tablet Take 1 tablet by mouth once each week. FAMILY HISTORY Problem Relation Age of Onset Colon Cancer Maternal Grandmother 50 other (brain cancer) Paternal Aunt Social History Tobacco Use Smoking status: Never Smokeless tobacco: Never Substance Use Topics Alcohol use: No Drug use: Yes Comment: Medical car for marijuana BP 130/78 Pulse 117 Temp 36.8 ?C (98.2 ?F) (Tympanic) Resp 18 LMP (LMP Unknown) SpO2 99% Review of Systems Constitutional: Negative for chills, fever and malaise/fatigue. HENT: Negative for congestion, ear discharge, ear pain, sinus pain and sore throat. Eyes: Negative for blurred vision, pain, discharge and redness. Respiratory: Negative for cough, hemoptysis, sputum production, shortness of breath, wheezing and stridor. Cardiovascular: Negative for chest pain. Gastrointestinal: Negative for abdominal pain, diarrhea, nausea and vomiting. Musculoskeletal: Positive for falls and joint pain. Negative for back pain, myalgias and neck pain. Skin: Negative for itching and rash. Neurological: Negative for dizziness and headaches. Objective Physical Exam Constitutional: General: She is not in acute distress. Appearance: She is not diaphoretic. HENT: Head: Normocephalic. Eyes: Conjunctiva/sclera: Conjunctivae normal. Pupils: Pupils are equal, round, and reactive to light. Cardiovascular: Rate and Rhythm: Normal rate and regular rhythm. Heart sounds: Normal heart sounds. Pulmonary: Effort: Pulmonary effort is normal. No tachypnea, accessory muscle usage or respiratory distress. Breath sounds: Normal breath sounds. No stridor. No wheezing, rhonchi or rales. Musculoskeletal: Cervical back: Normal range of motion. Left knee: No bony tenderness. No tenderness. Left lower leg: No swelling, tenderness or bony tenderness. Right ankle: Normal. Left ankle: Ecchymosis present. No swelling. Tenderness present over the lateral malleolus. Decreased range of motion. Left Achilles Tendon: No tenderness. Left foot: Normal range of motion and normal capillary refill. No swelling, deformity, tenderness or bony tenderness. Normal pulse. Comments: Pain with palpation to lateral malleolus. No breaks in skin. Some edema. Some erythema. Skin: General: Skin is warm and dry. Neurological: Mental Status: She is alert and oriented to person, place, and time. ASSESSMENT/PLAN: 1. Injury of left ankle, initial encounter - ICD9: 959.7, ICD10: S99.912A - XR ANKLE GENERAL 3V AP/LAT/OBL LEFT IMPRESSION IMPRESSION: Soft tissue swelling along the lateral malleolus. No fractures noted on x-ray. Treat as ankle sprain. Follow-up PCP symptoms not improving 7 to 10 days. Patient was educated on supportive therapies. Patient will follow up with primary (more content not included)... Normal [facility] XR ANKLE 3V AP/LAT/OBL LTon 08-15-2022 XR ANKLE 3V AP/LAT/OBL LT * * *Final Rep ort* * * DATE OF EXAM: Aug 15 2022 9:38AM WOX 5298 - XR ANKLE 3V AP/LAT/OBL LT / PROCEDURE REASON: Injury of left ankle, initial encounter * * * * Physician Interpretation * * * * EXAM TITLE: XR ANKLE 3V AP/LAT/OBL LT EXAM DATE/TIME: 08/15/2022 9:38 AM COMPARISON: None. CLINICAL INDICATION/HISTORY: Injury TECHNIQUE: AP, mortise and lateral views of the left ankle are presented. FINDINGS: No acute fractures or subluxations are noted. The mortise joint spaces are maintained. An os trigonum is present. Tiny calcaneal enthesophyte noted. There is no evidence of joint effusion. The mineralization of the bones is normal. There is soft tissue swelling along the lateral malleolus. IMPRESSION: Soft tissue swelling along the lateral malleolus. Information Architect: JESUS Transcribe Date/Time: Aug 15 2022 9:47A Dictated by : CAMERON ROBLEDO MD This examination was interpreted and the report reviewed and electronically signed by: CAMERON ROBLEDO MD on Aug 15 2022 9:49AM EST [id number] Normal [facility] XR Ankle - left AP and Later al and obliqueon 08-15-2022 IMPRESSION: Soft tissue swelling along the lateral malleolus. Information Architect: JESUS Transcribe Date/Time: Aug 15 2022 9:47A Dictated by : CAMERON ROBLEDO MD This examination was interpreted and the report reviewed and electronically signed by: CAMERON ROBLEDO MD on Aug 15 2022 9:49AM EST DIVISION OF RADIOLOGY * * *Final Report* * * DATE OF EXAM: Aug 15 2022 9:38AM WOX 5298 - XR ANKLE 3V AP/LAT/OBL LT / PROCEDURE REASON: Injury of left ankle, initial encounter * * * * Physician Interpretation * * * * EXAM TITLE: XR ANKLE 3V AP/LAT/OBL LT EXAM DATE/TIME: 08/15/2022 9:38 AM COMPARISON: None. CLINICAL INDICATION/HISTORY: Injury TECHNIQUE: AP, mortise and lateral views of the left ankle are presented. FINDINGS: No acute fractures or subluxations are noted. The mortise joint spaces are maintained. An os trigonum is present. Tiny calcaneal enthesophyte noted. There is no evidence of joint effusion. The mineralization of the bones is normal. There is soft tissue swelling along the lateral malleolus. DIVISION OF RADIOLOGY Provider, [facility] - 08/15/2022 * * *Final Report* * * DATE OF EXAM: Aug 15 2022 9:38AM WOX 5298 - XR ANKLE 3V AP/LAT/OBL LT / PROCEDURE REASON: Injury of left ankle, initial encounter * * * * Physician Interpretation * * * * EXAM TITLE: XR ANKLE 3V AP/LAT/OBL LT EXAM DATE/TIME: 08/15/2022 9:38 AM COMPARISON: None. CLINICAL INDICATION/HISTORY: Injury TECHNIQUE: AP, mortise and lateral views of the left ankle are presented. FINDINGS: No acute fractures or subluxations are noted. The mortise joint spaces are maintained. An os trigonum is present. Tiny calcaneal enthesophyte noted. There is no evidence of joint effusion. The mineralization of the bones is normal. There is soft tissue swelling along the lateral malleolus. IMPRESSION IMPRESSION: Soft tissue swelling along the lateral malleolus. Information Architect: PSCB Transcribe Date/Time: Aug 15 2022 9:47A Dictated by : CAMERON ROBLEDO MD This examination was interpreted and the report reviewed and electronically signed by: CAMERON ROBLEDO MD on Aug 15 2022 9:49AM EST [facility] Radiology Study observation (narrative) Aria garcia [facility] XR Ankle - left AP and Later al and obliqueOrdered By: Ccf Provider on 08-15-2022 [facility] Estradiol SerPl-mCncon 07-14 E2 [Mass/Vol] pg/mL Normal [facility] Comment on above: Order Comment: Violet bonilla Type: BLOOD SPECIMENOrdering Facility: Myron Viveros DO Address: [address] [place] [address] Result Comment: This test is not suitable for patients receiving treatment with the drug Fulvestrant (Faslodex). The drug causes an interference leading to falsely elevated estradiol results. Menstrual cycle Estradiol reference ranges: Follicular : < 234 pg/mL Ovulation : 41 to 398 pg/mL Luteal : < 342 pg/mL Estradiol reference ranges vary by gestational period: First trimester : 154 to 3243 pg/mL Second trimester : 1561 to 84229 pg/mL Third trimester : 8285 to >89155 pg/mL Post-menopausal Estradiol reference range: < 41 pg/mL Reference: 1. Estradiol - E2 (Estradiol III) [package insert V 3.0 Vietnamese]. [employer], [place], [place], August 2015. Performed By: #### 2 243-4, 3024-7, 2839-9, 3051-0 ####[facility] LABCLIA [id number] [place] [address] [place] Progest SerPl-mCncon 04-24-2 023 Progesterone [Mass/Vol] ng/mL Normal See comment [facility] Comment on above: Order Comment: Violet bonilla Type: BLOOD SPECIMENOrdering Facility: Myron Viveros DO Address: [address] [place] [address] Result Comment: Mens trual Cycle Progesterone Reference Ranges: Follicular: <1.0 ng/mL Ovulation: <12.1 ng/mL Luteal: 1.8 to 23.9 ng/mL. Progesterone Reference Ranges vary by gestational period: First Trimester: 11.0 to 44.3 ng/mL Second Trimester: 25.4 to 83.3 ng/mL Third Trimester: 58.7 to 214 ng/mL Post menopausal Progesterone: <0.5 ng/mL Reference: 1. Progesterone (Progesterone III) [package insert V 1.0 Vietnamese]. [employer], [place], [place]. December 2014. Performed By: #### 2 243-4, 3024-7, 2839-9, 3051-0 ####[facility] LABCLIA [id number] [place] [address] [place] T3Free SerPl-mCncon 07-15-19 23 Free T3 [Mass/Vol] 3.3 pg/mL Normal 2.3-4.1 [facility] Comment on above: Order Comment: Speci men Type: BLOOD SPECIMENOrdering Facility: Myron Viveros Address: [address] [place] [address] Performed By: #### 2 243-4, 3024-7, 2839-9, 3051-0 ####[facility] LABCLIA [id number] [place] [address] [place] T4 Free SerPl-mCncon 023 Free T4 [Mass/Vol] 1.2 ng/dL Normal 0.9-1.7 [facility] Comment on above: Order Comment: Speci men Type: BLOOD SPECIMENOrdering Facility: Myron Viveros Address: [address] [place] [address] Performed By: #### 2 243-4, 3024-7, 2839-9, 3051-0 ####[facility] LABCLIA [id number] [place] [address] [place] Testost SerPl-mCncon 023 Testosterone [Mass/Vol] ng/dL Normal <40 C [facility] Comment on above: Order Comment: Speci men Type: BLOOD SPECIMEN Ordering Facility: Myron Viveros DO Address: [address] [place] [address] Result Comment: Resu lt rechecked. Performed By: #### 2 986-8 #### [facility] CLIA [id number] [address] [place] [address] [place] Estradiol SerPl-mCncon 05-20 E2 [Mass/Vol] pg/mL Normal [facility] Comment on above: Order Comment: Speci men Type: BLOOD SPECIMEN Ordering Facility: External Submitter Address: , , Result Comment: This test is not suitable for patients receiving treatment with the drug Fulvestrant (Faslodex). The drug causes an interference leading to falsely elevated estradiol results. Menstrual cycle Estradiol reference ranges: Follicular : < 234 pg/mL Ovulation : 41 to 398 pg/mL Luteal : < 342 pg/mL Estradiol reference ranges vary by gestational period: First trimester : 154 to 3243 pg/mL Second trimester : 1561 to 93454 pg/mL Third trimester : 8285 to >25918 pg/mL Post-menopausal Estradiol reference range: < 41 pg/mL Reference: 1. Estradiol - E2 (Estradiol III) [package insert V 3.0 Vietnamese]. [employer], [place], [place], August 2015. Performed By: #### 3 024-7, 2839-9, 2243-4, 3051-0 #### [facility] CLIA [id number] [address] [place] [address] [place] Progest SerPl-mCncon 023 Progesterone [Mass/Vol] 0.2 ng/mL Normal See comment [facility] Comment on above: Order Comment: Speci men Type: BLOOD SPECIMEN Ordering Facility: External Submitter Address: , , Result Comment: Mens trual Cycle Progesterone Reference Ranges: Follicular: <1.0 ng/mL Ovulation: <12.1 ng/mL Luteal: 1.8 to 23.9 ng/mL. Progesterone Reference Ranges vary by gestational period: First Trimester: 11.0 to 44.3 ng/mL Second Trimester: 25.4 to 83.3 ng/mL Third Trimester: 58.7 to 214 ng/mL Post menopausal Progesterone: <0.5 ng/mL Reference: 1. Progesterone (Progesterone III) [package insert V 1.0 Vietnamese]. [employer], [place], [place]. December 2014. Performed By: #### 3 024-7, 2839-9, 2243-4, 3051-0 #### [facility] CLIA [id number] [address] [place] [address] [place] T3Free SerPl-mCncon 05-20-19 23 Free T3 [Mass/Vol] 3.4 pg/mL Normal 2.3-4.1 [facility] Comment on above: Order Comment: Speci men Type: BLOOD SPECIMEN Ordering Facility: External Submitter Address: , , Performed By: #### 3 024-7, 2839-9, 2243-4, 3051-0 #### [facility] CLIA [id number] [address] [place] [address] [place] T4 Free SerPl-mCncon 023 Free T4 [Mass/Vol] 1.1 ng/dL Normal 0.9-1.7 [facility] Comment on above: Order Comment: Violet bonilla Type: BLOOD SPECIMEN Ordering Facility: External Submitter Address: , , Performed By: #### 3 024-7, 2839-9, 2243-4, 305-0 #### [facility] CLIA [id number] [address] [place] [address] [place] TSH SerPl-aCncon 05-20-2022 TSH Qn 1.030 m[IU]/L Normal 0.270-4.200 [facility] Comment on above: Order Comment: Violet bonilla Type: BLOOD SPECIMENOrdering Facility: External Submitter Address: , , Result Comment: If t he patient is , TSH reference range varies by gestational period: First Trimester (weeks 9-12): 0.180-2.990 mIU/L Second Trimester: 0.110-3.980 mIU/L Third Trimester: 0.480-4.710 mIU/L Bentley Cavazos et al. A Practical Approach for the Verifications and Determination of Site- and Trimester-Specific Reference Intervals for Thyroid Function tests in . Thyroid, 2019:29:3:412-420. Ponce E, et al. 2017 Guidelines of the [place] Thyroid Association for the Diagnosis and Management of Thyroid Disease during and the . Thyroid, 2017:27:3:315-389. Performed By: #### 3 016-3, 2986-8 ####[facility] LABCLIA [id number] [place] [address] [place] Testost SerPl-mCncon 023 Testosterone [Mass/Vol] 20 ng/dL Normal <40 C [facility] Comment on above: Order Comment: Speci men Type: BLOOD SPECIMEN Ordering Facility: External Submitter Address: , , Performed By: #### 3 016-3, 2986-8 #### [facility] CLIA [id number] [address] [place] [address] [place] US THYROID/PARATHYROIDon US THYROID/PARATHYROID * * *Final Report * * * DATE OF EXAM: Feb 28 2022 10:21AM [facility] 1048 - US THYROID/PARATHYROID / PROCEDURE REASON: disorder of the thyroid * * * * Physician Interpretation * * * * EXAMINATION: THYROID ULTRASOUND CLINICAL HISTORY: disorder of the thyroid TECHNIQUE: Sonography and Doppler imaging of the thyroid was performed. Images were obtained and stored in a permanent archive. MQ: UST_1 COMPARISON: None. RESULT: Right Lobe: 5.6 x 1.4 x 2.2 cm; homogeneous echogenicity, expected vascular flow. Left Lobe: 5.0 x 1.3 x 1.7 cm; homogeneous echogenicity, expected vascular flow. Isthmus: 0.2 cm The most suspicious thyroid nodule(s) (up to four) as below: NODULE 1: Location: Right superior Size: 0.5 x 0.4 x 0.3 cm Characteristics: Composition: Solid or almost completely solid, 2 points Echogenicity: Hypoechoic, 2 points Shape: Jpgnr-ffpm-aeya, 0 points Margin: Smooth, 0 points Echogenic foci (add points for all that apply): None, 0 points Internal vascularity: absent Interval growth: No prior available for comparison TI-RADS Category: TR4 ACR Recommendation: TI-RADS 4 nodule. No FNA or follow-up imaging is advised. NODULE 2: Location: Left inferior Size: 0.4 x 0.3 x 0.2 cm Characteristics: Composition: Solid or almost completely solid, 2 points Echogenicity: Hypoechoic, 2 points Shape: Rujlp-vlou-udsd, 0 points Margin: Smooth, 0 points Echogenic foci (add points for all that apply): None, 0 points Internal vascularity: absent Interval growth: No prior available for comparison TI-RADS Category: TR4 ACR Recommendation: TI-RADS 4 nodule. No FNA or follow-up imaging is advised. IMPRESSION: Borderline enlargement of the bilateral thyroid. Thyroid nodule(s) present is/are clinically insignificant. No surveillance is advised. TI-RADS Category: TR4 ACR Recommendation: TI-RADS 4 nodule. No FNA or follow-up imaging is advised. ACR recommendations are strictly based on the size and imaging appearance at the time of the exam and do not consider stability or previous biopsy results. Information Architect: PSCB Transcribe Date/Time: Feb 28 2022 5:54P Dictated by : CAMERON ROBLEDO MD This examination was interpreted and the report reviewed and electronically signed by: CAMERON ROBLEDO MD on Feb 28 2022 5:57PM EST [id number] Normal [facility] Estradiol SerPl-mCncon 02-26 E2 [Mass/Vol] pg/mL Normal [facility] Comment on above: Order Comment: Speci men Type: BLOOD SPECIMENOrdering Facility: [facility] Address: [address] [place] [address] Result Comment: This test is not suitable for patients receiving treatment with the drug Fulvestrant (Faslodex). The drug causes an interference leading to falsely elevated estradiol results. Menstrual cycle Estradiol reference ranges: Follicular : < 234 pg/mL Ovulation : 41 to 398 pg/mL Luteal : < 342 pg/mL Estradiol reference ranges vary by gestational period: First trimester : 154 to 3243 pg/mL Second trimester : 1561 to 75970 pg/mL Third trimester : 8285 to >36988 pg/mL Post-menopausal Estradiol reference range: < 41 pg/mL Reference: 1. Estradiol - E2 (Estradiol III) [package insert V 3.0 Vietnamese]. [employer], [place], [place], August 2015. Performed By: #### 2 243-4, 3051-0, 2839-9, 3024-7 ####[facility] LABCLIA [id number] [place] [address] [place] Progest SerPl-mCncon 022 Progesterone [Mass/Vol] 0.3 ng/mL Normal See comment [facility] Comment on above: Order Comment: Speci men Type: BLOOD SPECIMENOrdering Facility: [facility] Address: [address], [place] [address] Result Comment: Mens trual Cycle Progesterone Reference Ranges: Follicular: <1.0 ng/mL Ovulation: <12.1 ng/mL Luteal: 1.8 to 23.9 ng/mL. Progesterone Reference Ranges vary by gestational period: First Trimester: 11.0 to 44.3 ng/mL Second Trimester: 25.4 to 83.3 ng/mL Third Trimester: 58.7 to 214 ng/mL Post menopausal Progesterone: <0.5 ng/mL Reference: 1. Progesterone (Progesterone III) [package insert V 1.0 Vietnamese]. [employer], [place], [place]. December 2014. Performed By: #### 2 243-4, 3051-0, 2839-9, 3024-7 ####[facility] LABCLIA [id number] [place] [address] [place] T3Free SerPl-mCncon 02-27-20 22 Free T3 [Mass/Vol] 4.1 pg/mL Normal 2.3-4.1 [facility] Comment on above: Order Comment: Speci men Type: BLOOD SPECIMENOrdering Facility: [facility] Address: [address] [place] [address] Performed By: #### 2 243-4, 3051-0, 2839-9, 3024-7 ####[facility] LABCLIA [id number] [place] [address] [place] T4 Free SerPl-mCncon 022 Free T4 [Mass/Vol] 1.0 ng/dL Normal 0.9-1.7 [facility] Comment on above: Order Comment: Speci men Type: BLOOD SPECIMENOrdering Facility: [facility] Address: [address] [place] [address] Performed By: #### 2 243-4, 3051-0, 2839-9, 3024-7 ####[facility] LABCLIA [id number] [place] [address] [place] TSH SerPl-aCncon 02-26-2022 TSH Qn 0.288 m[IU]/L Normal 0.270-4.200 [facility] Comment on above: Order Comment: Speci men Type: BLOOD SPECIMENOrdering Facility: [facility] Address: [address] [place] [address] Result Comment: If t he patient is , TSH reference range varies by gestational period: First Trimester (weeks 9-12): 0.180-2.990 mIU/L Second Trimester: 0.110-3.980 mIU/L Third Trimester: 0.480-4.710 mIU/L Bentley Cavazos et al. A Practical Approach for the Verifications and Determination of Site- and Trimester-Specific Reference Intervals for Thyroid Function tests in . Thyroid, 2019:29:3:412-420. Ponce Coe et al. 2017 Guidelines of the [place] Thyroid Association for the Diagnosis and Management of Thyroid Disease during and the . Thyroid, 2017:27:3:315-389. Performed By: #### 2 986-8, 3016-3 ####[facility] LABCLIA [id number] [place] [address] [place] Testost SerPl-mCncon 022 Testosterone [Mass/Vol] 19 ng/dL Normal <40 C [facility] Comment on above: Order Comment: Speci men Type: BLOOD SPECIMENOrdering Facility: [facility] Address: [address] [place] [address] Performed By: #### 2 986-8, 3016-3 ####[facility] LABCLIA [id number] [place] [address] [place] MRI BRAIN W/O CONTRASTon MRI BRAIN W/O CONTRAST ORIGINAL HISTORY: Migraine COMPARISON: No TECHNIQUE: 1. Sagittal T1-weighted images. 2. Axial T2-weighted and T2*-weighted images. 3. Axial FLAIR images. 4. Axial diffusion-weighted images with ADC map. FINDINGS: The ventricles and sulci are normal in size and configuration. There are no abnormal intra or extra-axial fluid collections. There are mild scattered punctate T2 hyperintensities in the cerebral white matter, mainly in the left frontal lobe. Ospina-white matter differentiation is intact. There is no abnormal restriction of diffusion. The orbital contents are normal in appearance. The paranasal sinuses are clear. IMPRESSION: Nonspecific white matter T2 hyperintensities in the left frontal lobe. These may represent developmental lesions of no significance, but these are occasionally seen in the presence of migraine headaches. Interpreted by: Shilo Locke MD Preliminary Report By: Shilo Locke MD Electronically signed By Shilo Locke MD Dictated Date: 12/23/2021 3:17:13 PM Prelim Date: 12/23/2021 3:19:16 PM Sign Date: 12/23/2021 3:19:16 PM Ordering Provider: BRIA Christy [facility] ([place]) Basic Metabolic Panelon 12-0 Anion gap 13 mmol/L Normal [facility] Comment on above: Performed By: #### H EMDF, BMP3, LFT3, LIPA3, MG3 ####[facility] [address]fhdtbn8484[place] [address] Calcium 9.5 mg/dL Normal 8.2-10.1 [facility] Comment on above: Performed By: #### H EMDF, BMP3, LFT3, LIPA3, MG3 ####[facility] Rhmmljtfc1433[place]uwc[place] [address] Chloride 101 mmol/L Normal 98-109 [facility] Comment on above: Performed By: #### H EMDF, BMP3, LFT3, LIPA3, MG3 ####[facility] Jityaqhdv4361[place] [address] CO2 25 mmol/L Normal 21-32 [facility] Comment on above: Performed By: #### H EMDF, BMP3, LFT3, LIPA3, MG3 ####[facility] Wmighzjsc7789Lefvwu[place] [address] Creatinine 0.92 mg/dL Normal 0.55-1.40 [facility] Comment on above: Performed By: #### H EMDF, BMP3, LFT3, LIPA3, MG3 ####[facility] Bqdbmtxmh[address]505[place]gz[place] [address] eGFR (black) mL/min/{1.73_m2} Normal >60 [facility] Comment on above: Performed By: #### H EMDF, BMP3, LFT3, LIPA3, MG3 ####[facility] Tkmzwlwdh3371[place]pdvdn[place] [address] eGFR (non-black) mL/min/{1.73_m2} Normal >60 [facility] Comment on above: Result Comment: Sour ce- MDRD equation with creatinine calibration to IDMS(NKDEP)eGFR not recommended for drug dose adjustment Performed By: #### H EMDF, BMP3, LFT3, LIPA3, MG3 ####[facility] Vdkgpyqig7480[place]tdkod[place] [address] Glucose mass conc 92 mg/dL Normal 70-100 [facility] Comment on above: Performed By: #### H EMDF, BMP3, LFT3, LIPA3, MG3 ####[facility] Tolwzfkva9027[place]qt[place] [address] Potassium molar conc 3.5 mmol/L Normal 3.5-5.1 [facility] Comment on above: Performed By: #### H EMDF, BMP3, LFT3, LIPA3, MG3 ####[facility] Jxrwqsyqi1526[place]ck[place] [address] Sodium 138 mmol/L Normal 135-145 [facility] Comment on above: Performed By: #### H EMDF, BMP3, LFT3, LIPA3, MG3 ####[facility] Bsdrsjmyk5485Ndiahb[place] [address] Urea nitrogen 10 mg/dL Normal 7-25 [facility] Comment on above: Performed By: #### H EMDF, BMP3, LFT3, LIPA3, MG3 ####[facility] Etlinpjrf6289Dfbrcf[place] [address] CR Abdomen APon 02-22-2017 CR Abdomen AP Patient Name: ROSY RAWLS Diagnostic Radiology Exam Date/Time 02/22/2017 20:48:54 EST Exam CR Abdomen AP Ordering Physician DO ESPARZA RACHAEL C Accession Number [id number] CPT4 Codes 56569 () Reason For Exam abd pain Report Indication: Abdominal pain. Findings and impression: Abdomen frontal view. There is nonspecific increased stool and gas in bowel. Mild associated distention. No free air. No pathologic calcifications. Lung bases clear. Consider constipation in the appropriate setting. Report Dictated on Final Dictated: 02/22/2017 8:52 pm Dictating Physician: MD LEVY JOHN Signed Date and Time: 02/22/2017 8:52 pm Signed by: MD LEVY JOHN Transcribed Date and Time: 02/22/2017 8:52 Normal [facility] HCG,Urine Qualon 02-22-2017 HCG.beta subunit ( test) Ql (U) Negative Normal Negative [facility] Comment on above: Result Comment: Preg sophia is the most common reason for HCG in urine, althoughchoriocarcinoma, hydatidiform mole, and certain nontropho-blastic malignancies also result in detectable urinary HCGlevels. Sensitivity = 20mIU/mL. Performed By: #### U AMAC, HCGUR ####[facility] [address] Hemogram w/ Autodiffon 02-22 Abs Baso Cnt 0.0 10*3/uL Normal 0.0-0.2 [facility] Comment on above: Performed By: #### H EMDF, BMP3, LFT3, LIPA3, MG3 ####[place] [address]goly[address]3[place]isf[place] [address] Basophils/100 WBC Auto (Bld) 0.5 % Normal [facility] Comment on above: Performed By: #### H EMDF, BMP3, LFT3, LIPA3, MG3 ####[facility] [address] [address] Eosinophils 0.1 10*3/uL Normal 0.0-0.5 [facility] Comment on above: Performed By: #### H EMDF, BMP3, LFT3, LIPA3, MG3 ####[facility] Lzpevgsvr6427Befmmx[place] [address] Eosinophils/100 leukocytes 0.9 % Normal [facility] Comment on above: Performed By: #### H EMDF, BMP3, LFT3, LIPA3, MG3 ####[facility] Rekolbwgy0352[place]ichdj[place] [address] Erythrocyte distribution width Auto Ratio (RBC) 12.8 % Normal 11.5-14.5 [facility] Comment on above: Performed By: #### H EMDF, BMP3, LFT3, LIPA3, MG3 ####[facility] Isfqhsbna5244Xgoiow[place] [address] Erythrocytes (RBC) 5.09 10*6/uL Normal 3.80-5.20 [facility] Comment on above: Performed By: #### H EMDF, BMP3, LFT3, LIPA3, MG3 ####[facility] Smgwiqglg1116Dujdes[place] [address] Granulocytes/100 WBC (Bld) 53.5 % Normal [facility] Comment on above: Performed By: #### H EMDF, BMP3, LFT3, LIPA3, MG3 ####[facility] Ezascsnjz5620Zlsqnj[place] [address] Hematocrit (HCT) 45.9 % Normal 35.0-47.0 [facility] Comment on above: Performed By: #### H EMDF, BMP3, LFT3, LIPA3, MG3 ####[facility] Flhoonsee3750VtkvmaBHC [place] [address] Hemoglobin mass conc (Bld) 15.5 g/dL Normal 11.7-16.0 [facility] Comment on above: Performed By: #### H EMDF, BMP3, LFT3, LIPA3, MG3 ####[facility] Cjmpgmulv3299[place] [address] Lymphocytes 3.4 10*3/uL Normal [facility] Comment on above: Performed By: #### H EMDF, BMP3, LFT3, LIPA3, MG3 ####[facility] Aenctakdo8373ClecnlBHC [place] [address] Lymphocytes/100 leukocytes 37.2 % Normal [facility] Comment on above: Performed By: #### H EMDF, BMP3, LFT3, LIPA3, MG3 ####[facility] Szjgzqihm4754JkfihhBHC [place] [address] MCH 30.4 pg Normal 26.0-34.0 [facility] Comment on above: Performed By: #### H EMDF, BMP3, LFT3, LIPA3, MG3 ####[facility] Zmaeimtfv8877XcthxkBHC [place] [address] MCHC mass conc (RBC) 33.7 % Normal 32.0-36.0 [facility] Comment on above: Performed By: #### H EMDF, BMP3, LFT3, LIPA3, MG3 ####[facility] Lwhewvsau2593CeqokuBHC [place] [address] MCV 90.1 fL Normal 79.0-98.0 [facility] Comment on above: Performed By: #### H EMDF, BMP3, LFT3, LIPA3, MG3 ####[facility] Zlkgueznd7188EoyvapBHC [place] [address] Monocytes 0.7 10*3/uL Normal 0.0-0.8 [facility] Comment on above: Performed By: #### H EMDF, BMP3, LFT3, LIPA3, MG3 ####[facility] Lsuusabfq[address]dr[place] [address] Monocytes/100 leukocytes 7.9 % Normal [facility] Comment on above: Performed By: #### H EMDF, BMP3, LFT3, LIPA3, MG3 ####[facility] Hphjbtcxh9042Tpiafx [facility] [address] Neutrophils 4.9 10*3/uL Normal 1.8-7.0 [facility] Comment on above: Performed By: #### H EMDF, BMP3, LFT3, LIPA3, MG3 ####[facility] Drrgucfgj4569Tknkgr [facility] [place] [address] Platelet mean volume (PMV) 9.2 fL Normal 7.4-10.4 [facility] Comment on above: Performed By: #### H EMDF, BMP3, LFT3, LIPA3, MG3 ####[facility] Xwrhzaesl3495TpjohgBHC [place] [address] Platelets 173 10*3/uL Normal 140-440 [facility] Comment on above: Performed By: #### H EMDF, BMP3, LFT3, LIPA3, MG3 ####[facility] Izwdjrhyf3805FmywgtBHC [place] [address] WBC (Leukocytes) 9.1 10*3/uL Normal 3.6-10.7 [facility] Comment on above: Performed By: #### H EMDF, BMP3, LFT3, LIPA3, MG3 ####[facility] Vcilqzcfz8777SkiqwjBHC [place] [address] Hepatic Functionon 7 Alanine aminotransferase (ALT) 32 U/L Normal 12-78 [facility] Comment on above: Performed By: #### H EMDF, BMP3, LFT3, LIPA3, MG3 ####[facility] Qitwuwqbc2839Cqurhc [facility] [place] [address] Albumin 3.6 g/dL Normal 3.4-5.0 [facility] Comment on above: Performed By: #### H EMDF, BMP3, LFT3, LIPA3, MG3 ####[facility] Vyazowuqs4824Pxxiau [facility] [place] [address] Alkaline phosphatase (ALP) 59 U/L Normal 45-117 [facility] Comment on above: Performed By: #### H EMDF, BMP3, LFT3, LIPA3, MG3 ####[facility] Lfidbifpz9108Udtpsc [facility] [place] [address] Aspartate aminotransferase (AST) 17 U/L Normal 15-37 [facility] Comment on above: Performed By: #### H EMDF, BMP3, LFT3, LIPA3, MG3 ####[facility] [address]avarm[address] [place] [address] Bilirubin (direct) 0.1 mg/dL Normal 0.0-0.2 [facility] Comment on above: Performed By: #### H EMDF, BMP3, LFT3, LIPA3, MG3 ####[facility] Miipgxgnj[address] [address] Bilirubin (total) 0.4 mg/dL Normal 0.2-1.0 [facility] Comment on above: Performed By: #### H EMDF, BMP3, LFT3, LIPA3, MG3 ####[facility] [address] [address] Protein 7.9 g/dL Normal 6.4-8.2 [facility] Comment on above: Performed By: #### H EMDF, BMP3, LFT3, LIPA3, MG3 ####[facility] Fjmlodlwz[address] [address] Lipaseon 02-22-2017 Lipase 163 [IU]/L Normal 73-393 [facility] Comment on above: Performed By: #### H EMDF, BMP3, LFT3, LIPA3, MG3 ####[facility] Issyzrjjh2140[place]njbuj[place] [address] Magnesiumon 02-22-2017 Magnesium 2.0 mg/dL Normal 1.8-2.4 [facility] Comment on above: Performed By: #### H EMDF, BMP3, LFT3, LIPA3, MG3 ####[facility] [address]ey[address]jegj[address] [place] [address] [address] Urinalysis,Macroon 7 Bilirubin (direct) Negative Normal Negative [facility] Comment on above: Performed By: #### U AMAC, HCGUR ####[facility] [id number] [address] Ketone,Urine Negative Normal Negative [facility] Comment on above: Performed By: #### U AMAC, HCGUR ####[facility] Ypahjaoux5957Daeqxq [facility] [place] [address] Occult Blood,Ur Negative Normal Negative [facility] Comment on above: Performed By: #### U AMAC, HCGUR ####[facility] [address]do[address] [address] Specific Lamar,Urine 1.015 Normal 1.005-1.030 S [facility] Comment on above: Performed By: #### U AMAC, HCGUR ####[facility]itage Eqsszezgj9531Rhkohd [facility] [place] [address] Total Protein,Urine Negative Normal Negative [facility] Comment on above: Performed By: #### U AMAC, HCGUR ####[facility] Qwvsmgfsz[address] [address] Urine, appearance Clear Normal Clear [facility] Comment on above: Performed By: #### U AMAC, HCGUR ####[facility] Zfsfkywac7448UwupvnBHC [place] [address] Urine, color Yellow Normal Lt. Yellow [facility] Comment on above: Performed By: #### U AMAC, HCGUR ####[facility] Auxjt[address] [address] Urine, glucose presence NEG (Normal) Normal Negative [facility] Comment on above: Performed By: #### U AMAC, HCGUR ####[facility] Rtcddogpp7443Jfgicp [facility] [place] [address] Urine, nitrite presence Negative Normal Negative [facility] Comment on above: Performed By: #### U AMAC, HCGUR ####[facility]itage Mzbytjpks9266Oolizb [facility] [place] [address] Urine, pH 7.0 [pH] Normal 5.0-8.0 [facility] Comment on above: Performed By: #### U AMAC, HCGUR ####[facility] Vayetbybz8261[place] [address] Urine, urobilinogen Normal (0.2) Normal 0-1 [facility] Comment on above: Performed By: #### U AMAC, HCGUR ####Seymour ParkerFurtrbzlz3436[place] [address] WBC (Leukocytes) Negative Normal Negative [facility] Comment on above: Performed By: #### U AMAC, HCGUR ####Seymour ParkerJrabxtdcq0291[place] [address] ED Note-Provideron 7 ED Note-Provider Normal [facility] ED Note-Provider Normal [facility] Pathology Surgicalon 017 Pathology Surgical SEE BELOW [facility] Department of Pathology [address] [place] [address] NAME: ROSY RAWLS 1995 ACCESSION NO: [id number]: VULVA, BIOPSY - CONDYLOMATOUS CHANGES PRESENT. NEGATIVE FOR DYSPLASIA.CLINICAL INFORMATION: VULVODYNIA UNSPECIFIEDPROCEDURE :SPECIMEN: VULVA BX D# [id number] DESCRIPTION:Received labeled: Omi Rawls in formalin labeled vulvar biopsy is a 0.4 x 0.4 x 0.1 tanskin. No discrete lesion is identified. The specimen is inked andbisected. All submitted in one cassette. dictated by MarcoMICROSCOPIC DESCRIPTION:Slides reviewed.CPT: 66986 JONATHAN CLANCY MD, PATHOLOGIST Page 1 of 1 Normal [facility] Comment on above: Performed By: #### S UR ####[facility], [address] [place] [address] Patient Summary Documentson 09-18-2016 Patient Summary Documents Normal [facility] Vital Signs Date Time Vital Sign Value Performing Clinician Facility 10-19-2024 14:00-0400 Diastolic blood pressure 77 mm[Hg] Bria Smith MD Work Phone: [facility] 10-19-2024 14:00-0400 Heart rate 82 /min Bria Smith MD Work Phone: [facility] 10-19-2024 14:00-0400 Respiratory rate 16 /min Bria Smith MD Work Phone: [facility] 10-19-2024 14:00-0400 Systolic blood pressure 121 mm[Hg] Bria Smith MD Work Phone: [facility] 10-18-2024 14:09-0400 Diastolic blood pressure 78 mm[Hg] Bria Smith MD Work Phone: [facility] 10-18-2024 14:09-0400 Heart rate 89 /min Bria Smith MD Work Phone: [facility] 10-18-2024 14:09-0400 Respiratory rate 15 /min Bria Smith MD Work Phone: [facility] 10-18-2024 14:09-0400 Systolic blood pressure 137 mm[Hg] Bria Smith MD Work Phone: [facility] 09-08-2024 14:19-0400 Diastolic blood pressure 99 mm[Hg] Jaye Dash SENIOR COMMUNICATIONS SPECIALIST - RANCH HAND SUPERVISOR Work Phone: [facility] 09-08-2024 14:19-0400 Heart rate 62 /min Jaye Dash SENIOR COMMUNICATIONS SPECIALIST - RANCH HAND SUPERVISOR Work Phone: [facility] 09-08-2024 14:19-0400 Systolic blood pressure 149 mm[Hg] Jaye Dash SENIOR COMMUNICATIONS SPECIALIST - RANCH HAND SUPERVISOR Work Phone: [facility] 09-08-2024 13:50-0400 Body height 175.3 cm Jaye Dash SENIOR COMMUNICATIONS SPECIALIST - RANCH HAND SUPERVISOR Work Phone: [facility] 09-08-2024 13:50-0400 Body mass index (BMI) [Ratio] 37.04 kg/m2 Jaye Dash SENIOR COMMUNICATIONS SPECIALIST - RANCH HAND SUPERVISOR Work Phone: [facility] 09-08-2024 13:50-0400 Body weight 113.76 kg Jaye Dash SENIOR COMMUNICATIONS SPECIALIST - RANCH HAND SUPERVISOR Work Phone: [facility] 07-05-2024 13:39-0400 Diastolic blood pressure 82 mm[Hg] Jaye Bowling APRN - RANCH HAND SUPERVISOR Work Phone: [facility] Comment on above: Bp manual recheck 07-05-2024 13:39-0400 Systolic blood pressure 154 mm[Hg] Jaye Bowling APRN - RANCH HAND SUPERVISOR Work Phone: [facility] Comment on above: Bp manual recheck 07-05-2024 13:04-0400 Body height 175.3 cm Jaye Bowling APRN - RANCH HAND SUPERVISOR Work Phone: [facility] 07-05-2024 13:04-0400 Body mass index (BMI) [Ratio] 34.11 kg/m2 Jaye Bowling APRN - RANCH HAND SUPERVISOR Work Phone: [facility] 07-05-2024 13:04-0400 Body temperature 98.1 [degF] Jaye Bowling APRN - RANCH HAND SUPERVISOR Work Phone: [facility] 07-05-2024 13:04-0400 Body weight 104.78 kg Jaye Bowling APRN - RANCH HAND SUPERVISOR Work Phone: [facility] 07-05-2024 13:04-0400 Heart rate 53 /min Jaye Bowling APRN - RANCH HAND SUPERVISOR Work Phone: [facility] 06-22-2024 13:42-0400 Body temperature 97.59 [degF] Jaye Bowling APRN - RANCH HAND SUPERVISOR Work Phone: [facility] 06-22-2024 13:42-0400 Diastolic blood pressure 78 mm[Hg] Jaye Bowling APRN - RANCH HAND SUPERVISOR Work Phone: [facility] 06-22-2024 13:42-0400 Heart rate 70 /min Jaye Bowling APRN - RANCH HAND SUPERVISOR Work Phone: [facility] 06-22-2024 13:42-0400 Respiratory rate 16 /min Jaye Bowling APRN - RANCH HAND SUPERVISOR Work Phone: [facility] 06-22-2024 13:42-0400 SaO2% (BldA) [Mass fraction] 99 % Jaye Bowling SENIOR COMMUNICATIONS SPECIALIST - RANCH HAND SUPERVISOR Work Phone: [facility] 06-22-2024 13:42-0400 Systolic blood pressure 124 mm[Hg] Jaye Bowling SENIOR COMMUNICATIONS SPECIALIST - RANCH HAND SUPERVISOR Work Phone: [facility] 05-24-2024 10:24-0500 Body height 175.3 cm Jaye Bowling SENIOR COMMUNICATIONS SPECIALIST - RANCH HAND SUPERVISOR Work Phone: [facility] 05-24-2024 10:24-0500 Body mass index (BMI) [Ratio] 34.11 kg/m2 Jaye Bowling SENIOR COMMUNICATIONS SPECIALIST - RANCH HAND SUPERVISOR Work Phone: [facility] 05-24-2024 10:24-0500 Body weight 104.78 kg Jaye Bowling SENIOR COMMUNICATIONS SPECIALIST - RANCH HAND SUPERVISOR Work Phone: [facility] 05-24-2024 10:24-0500 Diastolic blood pressure 76 mm[Hg] Jaye Bowling SENIOR COMMUNICATIONS SPECIALIST - RANCH HAND SUPERVISOR Work Phone: [facility] 05-24-2024 10:24-0500 Systolic blood pressure 120 mm[Hg] Jaye Bowling SENIOR COMMUNICATIONS SPECIALIST - RANCH HAND SUPERVISOR Work Phone: [facility] 04-11-2024 13:16-0500 Body height 175.3 cm Jaye Bowling SENIOR COMMUNICATIONS SPECIALIST - RANCH HAND SUPERVISOR Work Phone: [facility] 04-11-2024 13:16-0500 Body mass index (BMI) [Ratio] 34.11 kg/m2 Jaye Bowling SENIOR COMMUNICATIONS SPECIALIST - RANCH HAND SUPERVISOR Work Phone: [facility] 04-11-2024 13:16-0500 Body temperature 99.3 [degF] Jaye Bowling SENIOR COMMUNICATIONS SPECIALIST - RANCH HAND SUPERVISOR Work Phone: [facility] 04-11-2024 13:16-0500 Body weight 104.78 kg Jaye Bowling SENIOR COMMUNICATIONS SPECIALIST - RANCH HAND SUPERVISOR Work Phone: [facility] 04-11-2024 13:16-0500 Diastolic blood pressure 79 mm[Hg] Jaye Bowling SENIOR COMMUNICATIONS SPECIALIST - RANCH HAND SUPERVISOR Work Phone: [facility] 04-11-2024 13:16-0500 Heart rate 82 /min Jaye Bowling SENIOR COMMUNICATIONS SPECIALIST - RANCH HAND SUPERVISOR Work Phone: [facility] 04-11-2024 13:16-0500 Systolic blood pressure 136 mm[Hg] Jaye Bowling SENIOR COMMUNICATIONS SPECIALIST - RANCH HAND SUPERVISOR Work Phone: [facility] 09-15-2023 22:51-0400 Body temperature 97.59 [degF] Anshu Chinchilla MD Work Phone: [facility] 09-15-2023 22:51-0400 Diastolic blood pressure 78 mm[Hg] Anshu Chinchilla MD Work Phone: [facility] 09-15-2023 22:51-0400 Heart rate 70 /min Anshu Chinchilla MD Work Phone: [facility] 09-15-2023 22:51-0400 Respiratory rate 16 /min Anshu Chinchilla MD Work Phone: [facility] 09-15-2023 22:51-0400 SaO2% (BldA) [Mass fraction] 96 % Anshu Chinchilla MD Work Phone: [facility] 09-15-2023 22:51-0400 Systolic blood pressure 154 mm[Hg] Anshu Chinchilla MD Work Phone: [facility] 09-15-2023 13:11-0400 Body height 175.3 cm Anshu Chinchilla MD Work Phone: [facility] 09-15-2023 13:11-0400 Body mass index (BMI) [Ratio] 31.9 kg/m2 Anshu Chinchilla MD Work Phone: [facility] 09-15-2023 13:11-0400 Body weight 97.98 kg Anshu Chinchilla MD Work Phone: [facility] 04-16-2023 13:34-0500 Body temperature 97.2 [degF] Jaye Bowling SENIOR COMMUNICATIONS SPECIALIST - RANCH HAND SUPERVISOR Work Phone: [facility] 04-16-2023 13:34-0500 Diastolic blood pressure 85 mm[Hg] Jaye Bowling SENIOR COMMUNICATIONS SPECIALIST - RANCH HAND SUPERVISOR Work Phone: [facility] 04-16-2023 13:34-0500 Heart rate 78 /min Jaye Bowling SENIOR COMMUNICATIONS SPECIALIST - RANCH HAND SUPERVISOR Work Phone: [facility] 04-16-2023 13:34-0500 Systolic blood pressure 128 mm[Hg] Jaye Bowling SENIOR COMMUNICATIONS SPECIALIST - RANCH HAND SUPERVISOR Work Phone: [facility] 01-14-2023 03:21-0400 Diastolic blood pressure 81 mm[Hg] [facility] 01-14-2023 03:21-0400 Heart rate 91 /min [facility] 01-14-2023 03:21-0400 Respiratory rate 18 /min [facility] 01-14-2023 03:21-0400 SaO2% (BldA) [Mass fraction] 99 % [facility] 01-14-2023 03:21-0400 Systolic blood pressure 131 mm[Hg] [facility] 01-14-2023 00:17-0400 Body height 175.26 cm [facility] 01-14-2023 00:17-0400 Body mass index (BMI) [Ratio] 33.2 kg/m2 [facility] 01-14-2023 00:17-0400 Body temperature 97 [degF] [facility] 01-14-2023 00:17-0400 Body weight 102.1 kg [facility] 10-22-2022 12:08-0400 Body height 175.3 cm Jaye Bowling SENIOR COMMUNICATIONS SPECIALIST - RANCH HAND SUPERVISOR Work Phone: [facility] 10-22-2022 12:08-0400 Body mass index (BMI) [Ratio] 32.78 kg/m2 Jaye Whitmoresey SENIOR COMMUNICATIONS SPECIALIST - RANCH HAND SUPERVISOR Work Phone: [facility] 10-22-2022 12:08-0400 Body temperature 97.9 [degF] Jaye Dash SENIOR COMMUNICATIONS SPECIALIST - RANCH HAND SUPERVISOR Work Phone: [facility] 10-22-2022 12:08-0400 Body weight 100.7 kg Jaye Bowling SENIOR COMMUNICATIONS SPECIALIST - RANCH HAND SUPERVISOR Work Phone: [facility] 10-22-2022 12:08-0400 Diastolic blood pressure 73 mm[Hg] Jaye Bowling SENIOR COMMUNICATIONS SPECIALIST - RANCH HAND SUPERVISOR Work Phone: [facility] 10-22-2022 12:08-0400 Heart rate 71 /min Jaye Bowling SENIOR COMMUNICATIONS SPECIALIST - RANCH HAND SUPERVISOR Work Phone: [facility] 10-22-2022 12:08-0400 Systolic blood pressure 143 mm[Hg] Jayegeoffrey Bowling SENIOR COMMUNICATIONS SPECIALIST - RANCH HAND SUPERVISOR Work Phone: [facility] Your [facility] Encounters Encounter Date Encounter Type Care Provider Facility Start: 10-19-2024 End: 10-19-2024 Patient encounter procedure Bria Smith MD Work Phone: [facility] Comment on above: Chronic migraine wit hout aura without status migrainosus, not intractable (Primary Dx); Intractable chronic migraine without aura and without status migrainosus Start: 10-19-2024 End: 10-19-2024 ambulatory [facility] Start: 10-18-2024 End: 10-18-2024 Patient encounter procedure Bria Smith MD Work Phone: [facility] Comment on above: Chronic migraine wit hout aura without status migrainosus, not intractable (Primary Dx); Intractable chronic migraine without aura and without status migrainosus Start: 10-18-2024 End: 10-18-2024 ambulatory CHALON VIKY [facility] Start: 10-12-2024 End: 10-12-2024 ambulatory Hugo L Seese Facility[facility] Start: 09-22-2024 End: 09-22-2024 ambulatory Chalon Viky Facility:[facility] Start: 09-14-2024 End: 09-14-2024 ambulatory Hugo L Seese Facility[facility] Start: 09-08-2024 End: 09-08-2024 Office outpatient visit 15 minutes Jaye Bowling SENIOR COMMUNICATIONS SPECIALIST - RANCH HAND SUPERVISOR Work Phone: [facility] Comment on above: Intractable chronic migraine without aura and without status migrainosus (Primary Dx) Start: 09-08-2024 End: 09-08-2024 ambulatory [facility] Start: 09-07-2024 End: 10-07-2024 Telephone encounter Jaye Cervantes CNP Work Phone: [facility] Comment on above: Appointment Request Start: 09-02-2024 End: 09-02-2024 ambulatory Anirudh Jerez Facility:[facility] Start: 08-18-2024 End: 08-18-2024 ambulatory Hugo L See Facility:[facility] Start: 07-20-2024 End: 07-20-2024 ambulatory Hugo Cavazos See Facility:[facility] Start: 07-05-2024 End: 07-05-2024 Office outpatient visit 15 minutes Jaye Cervantes CNP Work Phone: [facility] Comment on above: Intractable chronic migraine without aura and without status migrainosus (Primary Dx) Start: 07-05-2024 End: 07-05-2024 ambulatory [facility] Start: 06-22-2024 End: 06-22-2024 Subsequent hospital visit by physician Jaye Cervantes CNP Work Phone: [facility] Comment on above: Multiple sclerosis ( HCC) Start: 06-22-2024 End: 06-22-2024 ambulatory [facility] Start: 06-17-2024 End: 07-05-2024 [facility] Start: 06-17-2024 End: 07-05-2024 Patient encounter [facility] Comment on above: Multiple sclerosis ( HCC) (Primary Dx) Start: 06-17-2024 End: 07-01-2024 Telephone encounter Karol Gomez RN [facility] Comment on above: Other (MRI results) Start: 06-14-2024 End: 06-14-2024 ambulatory Bria Mancuso Facility:[facility] Start: 06-10-2024 End: 06-10-2024 ambulatory Chalon Viky Facility:[facility] Start: 05-24-2024 End: 05-24-2024 Office outpatient visit 15 minutes Jaye Bowling SENIOR COMMUNICATIONS SPECIALIST - RANCH HAND SUPERVISOR [facility] Comment on above: Intractable chronic migraine without aura and without status migrainosus (Primary Dx) Start: 05-24-2024 End: 05-24-2024 ambulatory [facility] Start: 05-17-2024 End: 05-17-2024 ambulatory Hugo L Seese Facility:[facility] Start: 04-14-2024 End: 04-14-2024 Telephone encounter Jaye Bowling SENIOR COMMUNICATIONS SPECIALIST - RANCH HAND SUPERVISOR Work Phone: [facility] Clinical Communication Comment on above: Medication Problem Start: 04-11-2024 End: 04-11-2024 Office outpatient visit 15 minutes Jaye Bowling SENIOR COMMUNICATIONS SPECIALIST - RANCH HAND SUPERVISOR Work Phone: [facility] Comment on above: Intractable chronic migraine without aura and without status migrainosus (Primary Dx) Start: 04-11-2024 End: 04-11-2024 ambulatory [facility] Start: 04-05-2024 End: 04-05-2024 ambulatory Hugo L Seese Facility:[facility] Start: 03-24-2024 End: 03-25-2024 ambulatory Chalon Viky Facility:[facility] Start: 02-25-2024 End: 03-22-2024 ambulatory Chalon Viky Facility:[facility] Start: 02-15-2024 End: 02-15-2024 Telephone encounter Jaye Bwoling APRN - RANCH HAND SUPERVISOR [facility] Comment on above: Prior Authorization Start: 01-22-2024 End: 02-08-2024 ambulatory Chalon Viky Facility:[facility] Start: 01-11-2024 End: 01-11-2024 Telephone encounter Jaye Bowling APRN - RANCH HAND SUPERVISOR Work Phone: [facility] Comment on above: Med Management Start: 12-22-2023 End: 01-21-2024 ambulatory Anirudh Jerez Facility:[facility] Start: 12-14-2023 End: 12-21-2023 ambulatory Galilea Montemayor Facility:[facility] Start: 12-08-2023 End: 12-10-2023 Telephone encounter Cecilio Olivera PharmD [facility] Comment on above: Med Management Start: 10-20-2023 End: 12-09-2023 Telephone encounter Jaye Bowling SENIOR COMMUNICATIONS SPECIALIST - RANCH HAND SUPERVISOR Work Phone: [facility] Comment on above: Other (Unable to sri ch pt for Tg) Start: 09-15-2023 End: 09-15-2023 ambulatory Heir Mcneal RN [facility] Clinical Communication Start: 09-15-2023 End: 09-15-2023 Patient encounter procedure Heri Mcneal RN [facility] Clinical Communication Start: 09-15-2023 End: 09-15-2023 Emergency department patient visit Anshu Chinchilla MD Work Phone: [facility] Comment on above: Suicidal ideations ( Primary Dx) Start: 06-09-2023 Refill Jaye Bowling SENIOR COMMUNICATIONS SPECIALIST - RANCH HAND SUPERVISOR Work Phone: [facility] Start: 04-16-2023 End: 04-16-2023 Office outpatient visit 15 minutes Jaye Bowling SENIOR COMMUNICATIONS SPECIALIST - RANCH HAND SUPERVISOR Work Phone: [facility] Comment on above: Chronic migraine wit hout aura without status migrainosus, not intractable (Primary Dx) Start: 03-18-2023 End: 03-18-2023 ambulatory [facility] Work Phone: Start: 03-18-2023 End: 03-18-2023 Patient encounter procedure [facility], Specimen Work Phone: Start: 01-28-2023 End: 01-29-2023 ambulatory EDUARD COPPOLA Facility:[facility] Start: 01-14-2023 End: 01-14-2023 Emergency department patient visit [facility] Work Phone: Start: 10-22-2022 End: 10-22-2022 Office outpatient visit 15 minutes Jaye Bowling SENIOR COMMUNICATIONS SPECIALIST - RANCH HAND SUPERVISOR Work Phone: [facility] Comment on above: Chronic migraine wit hout aura without status migrainosus, not intractable (Primary Dx) Start: 09-19-2022 Telephone encounter Bria guzman MD Work Phone: [facility] Comment on above: Prior Authorization Start: 08-15-2022 End: 08-15-2022 ambulatory EDUARD NICHOLSONON Facility:[facility] Start: 08-15-2022 End: 08-15-2022 Subsequent hospital visit by physician [facility] Work Phone: Radiology Comment on above: Injury of left ankle , initial encounter [S99.912A] Start: 07-14-2022 End: 07-15-2022 ambulatory EDUARD COPPOLA Facility:[facility] Start: 07-08-2022 Telephone encounter Bria guzman MD Work Phone: [facility] Comment on above: Forms/questionnaires Start: 05-20-2022 End: 05-21-2022 ambulatory EDUARD NICHOLSONON Facility:[facility] Start: 02-28-2022 End: 02-28-2022 ambulatory EDUARD NICHOLSONON Facility:[facility] Start: 02-28-2022 End: 02-28-2022 Subsequent hospital visit by physician [facility] Work Phone: Radiology Start: 02-26-2022 End: 02-26-2022 ambulatory EDUARD NICHOLSONON Facility:[facility] Start: 02-25-2022 Telephone encounter Bria guzman MD Work Phone: [facility] Comment on above: Medication Problem Start: 12-23-2021 End: 12-24-2021 ambulatory BRIA SMITH MD Facility:[facility] Start: 12-23-2021 End: 12-23-2021 Patient encounter procedure BRIA SMITH MD [place] Start: 03-31-2017 Ambulatory Leida Shaw [facility] Start: 03-26-2017 Ambulatory Leida Shaw [facility] Start: 02-22-2017 Ambulatory Chanel Oliveira [facility] Start: 09-18-2016 End: 09-19-2016 Ambulatory MYRON VIVEROS Facility:[facility] Start: 09-18-2016 End: 09-18-2016 Emergency department patient visit EDUARD COPPOLA Facility:[facility] Start: 09-18-2016 End: 09-19-2016 Ambulatory PHY WO ID REFERRING Facility:[facility] Procedures Date Procedure Procedure Detail Performing Clinician Start: 06-22-2024 IR LUMBAR PUNCTURE Flor Bowling SENIOR COMMUNICATIONS SPECIALIST - RANCH HAND SUPERVISOR Work Phone: Start: 06-22-2024 End: 06-22-2024 Cell count miscellaneous body fluids Jaye Bowling SENIOR COMMUNICATIONS SPECIALIST - RANCH HAND SUPERVISOR Work Phone: Start: 06-22-2024 Glucose body fluid o ther than blood Jaye Bowling SENIOR COMMUNICATIONS SPECIALIST - RANCH HAND SUPERVISOR Work Phone: Start: 04-11-2024 C-reactive protein Flor Bowling SENIOR COMMUNICATIONS SPECIALIST - RANCH HAND SUPERVISOR Work Phone: Start: 04-11-2024 Sedimentation rate r bc automated Jaye Bowling SENIOR COMMUNICATIONS SPECIALIST - RANCH HAND SUPERVISOR Work Phone: Start: 09-15-2023 Drug tst prsmv instr mnt chem analyzers pr date Anshu Chinchilla MD Work Phone: Start: 09-15-2023 Urinalysis complete panel - Urine Anshu Chinchilla MD Work Phone: Start: 09-15-2023 Urine test visual color cmprsn meths Anshu Chinchilla MD Work Phone: Start: 09-15-2023 Urnls dip stick/tabl et reagent auto microscopy Anshu Chinchilla MD Work Phone: Start: 09-15-2023 Ecg routine ecg w/le ast 12 lds trcg only w/o i&r Jade Martinez DO Work Phone: Start: 09-15-2023 SARS-CoV-2 (COVID-19 ) Ag [Presence] in Respiratory specimen by Rapid immunoassay Anshu Chinchilla MD Work Phone: Start: 09-15-2023 Comprehensive metabo lic panel Anshu Chinchilla MD Work Phone: Start: 09-15-2023 Drug test def 1-7 classes Anshu Chinchilla MD Work Phone: Start: 03-17-2023 Bacterial nucleic ac id assay Start: 03-17-2023 Chlamydia trachomatis (PCR) Start: 03-17-2023 Trichomonas vaginalis DNA Start: 01-14-2023 CT angiography of ch est with contrast Start: 08-15-2022 Radex ankle complete minimum 3 views Santi Colunga APRN.RANCH HAND SUPERVISOR Work Phone: Start: 05-20-2022 Thyrotropin [Units/v olume] in Serum or Plasma Bria Smith MD Work Phone: Start: 02-28-2022 soft tissue head & neck real time imge docm [facility] Provider Start: 05-09-2021 Microscopic observat ion [Identifier] in Cervix by Cyto stain Bria Smith MD Work Phone: Plan of Treatment Date Care Activity Detail Author Start: 2070 RSV Immunization for Adults (1 - 1-dose 75+ series) RSV Immunization for Adults (1 - 1-dose 75+ series) [facility] Your Policy Manager Start: 2055 RSV Immunization age d 60 or older (1 - 1-dose 60+ series) RSV Immunization aged 60 or older (1 - 1-dose 60+ series) [facility] Start: 2045 Zoster Vaccines (1 o f 2) Zoster Vaccines (1 of 2) [facility] Start: 09-21-2027 DTaP/Tdap/Td Vaccine s (2 - Td or Tdap) DTaP/Tdap/Td Vaccines (2 - Td or Tdap) [facility] Start: 09-21-2027 Urine microalbumin profile DTaP,Tdap,Td Vaccine (2 - Td or Tdap) [facility] Start: 11-21-2024 Influenza vaccination S [facility] Start: 11-03-2024 End: 11-03-2024 Patient encounter procedure 11/03/2024 2:30 PM EDT Office Visit [facility] [address] [place] [address] Jaye Bowling, SENIOR COMMUNICATIONS SPECIALIST - RANCH HAND SUPERVISOR [address] [place] [address] [facility] Start: 10-20-2024 End: 10-20-2024 Patient encounter procedure 10/20/2024 11:45 AM EDT Procedure Visit [facility] [address] [place] [address] [facility] Start: 10-19-2024 End: 10-19-2024 Patient encounter procedure 10/19/2024 11:45 AM EDT Procedure Visit [facility] [address] [place] [address] [facility] Start: 10-18-2024 End: 10-18-2024 Patient encounter procedure 10/18/2024 11:45 AM EDT Procedure Visit [facility] [address] [place] [address] [facility] Start: 09-08-2024 End: 09-08-2024 Patient encounter procedure 09/08/2024 1:30 PM EDT Office Visit [facility] [address] [place] [address] Jaye Bowling, JACE - RANCH HAND SUPERVISOR [address] [place] [address] [facility] Start: 07-05-2024 End: 07-05-2024 Patient encounter procedure 07/05/2024 1:00 PM EDT Office Visit [facility] Neurology [facility] [address] [place] [id number] Jaye Bowling, SENIOR COMMUNICATIONS SPECIALIST - RANCH HAND SUPERVISOR [address] [place] [address] [facility] Neurology [facility] Start: 06-22-2024 End: 06-22-2024 Patient encounter procedure 06/22/2024 1:00 PM EDT Appointment [facility] [address] [facility] [place] [phone] Jaye Bowling SENIOR COMMUNICATIONS SPECIALIST - RANCH HAND SUPERVISOR [address] [place], [place] [id number] [facility] Start: 06-17-2024 End: 06-17-2025 CSF cell count with differential CSF cell count with differential Lab Routine Multiple sclerosis (FORM[facility]) Expected: 06/17/2024 (Approximate), Expires: 06/17/2025 [facility] Comment on above: Expected: 06/17/2024 (Approximate), Expires: 06/17/2025 Start: 06-17-2024 End: 06-17-2025 Glucose, CSF Glucose, CSF Lab Routine Multiple sclerosis ([facility]) Expected: 06/17/2024 (Approximate), Expires: 06/17/2025 [facility] Comment on above: Expected: 06/17/2024 (Approximate), Expires: 06/17/2025 Start: 06-17-2024 End: 06-17-2025 Mycobacterium sp identified in Unspecified specimen by Organism specific culture AFB culture Microbiology Routine Multiple sclerosis ([facility]) Expected: 06/17/2024 (Approximate), Expires: 06/17/2025 [facility] Comment on above: Expected: 06/17/2024 (Approximate), Expires: 06/17/2025 Start: 06-17-2024 End: 06-17-2025 Oligoclonal banding Oligoclonal banding Lab Routine Multiple sclerosis ([facility]) Expected: 06/17/2024 (Approximate), Expires: 06/17/2025 [facility] Work Phone: Comment on above: Expected: 06/17/2024 (Approximate), Expires: 06/17/2025 Start: 06-17-2024 End: 06-17-2025 Protein, CSF Protein, CSF Lab Routine Multiple sclerosis (HCC) Expected: 06/17/2024 (Approximate), Expires: 06/17/2025 [facility] Comment on above: Expected: 06/17/2024 (Approximate), Expires: 06/17/2025 Start: 05-24-2024 End: 05-24-2024 Patient encounter procedure 05/24/2024 10:30 AM EST Office Visit [facility] [address] [place] [phone] Jaye Bowling, SENIOR COMMUNICATIONS SPECIALIST - RANCH HAND SUPERVISOR [address] [place] [address] [facility] Start: 05-09-2024 Screening for malign ant neoplasm of cervix Pap Smear [facility] Start: 04-14-2024 End: 04-14-2024 Patient encounter procedure [facility] Start: 11-22-2023 Covid-19 Vaccine ( season) Covid-19 Vaccine ( season) [facility] Start: 11-22-2023 COVID-19 Vaccine ( season) COVID-19 Vaccine ( season) [facility] Start: 11-22-2023 COVID-19 Vaccine ( season) COVID-19 Vaccine ( season) [facility] Start: 11-22-2023 Influenza vaccination [facility] Start: 05-20-2023 Thyroid stimulating hormone measurement TSH Level [facility] Start: 04-16-2023 End: 04-16-2023 Patient encounter procedure 04/16/2023 1:30 PM EST Office Visit [facility] [address] [place] [phone] Jaye Bowling, SENIOR COMMUNICATIONS SPECIALIST - RANCH HAND SUPERVISOR [address] [place] [address] [facility] Start: 01-14-2023 [facility] Start: 01-14-2023 CT angiography of ch est with contrast CTA Chest W/WO Contrast [facility] Start: 01-14-2023 CTA Chest vessels WO and W contrast IV [facility] Start: 11-21-2022 COVID-19 Vaccine ( season) COVID-19 Vaccine ( season) [facility] Start: 11-21-2022 Influenza vaccination [facility] Start: 10-22-2022 End: 10-22-2022 Patient encounter procedure 10/22/2022 12:00 PM EDT Office Visit [facility] [address] [place] [address] Jaye Bowling, SENIOR COMMUNICATIONS SPECIALIST - RANCH HAND SUPERVISOR [address] [place] [address] [facility] Start: 03-23-2022 Depression Assessment Depression Ass essment [facility] Start: 09-18-2020 COVID-19 Vaccine (3 - Booster for Moderna series) COVID-19 Vaccine (3 - Booster for Moderna series) [facility] Start: 2016 Pap Testing Pap Testing [facility] Start: 2016 Screening for malign ant neoplasm of cervix Cervical Cancer Screening [facility] Start: 2014 Hepatitis B Vaccine (1 of 3 - 19+ 3-dose series) Hepatitis B Vaccine (1 of 3 - 19+ 3-dose series) [facility] Start: 2014 Hepatitis B Vaccines (1 of 3 - 19+ 3-dose series) Hepatitis B Vaccines (1 of 3 - 19+ 3-dose series) [facility] Start: 2013 Anxiety Screening Anxiety Screening [facility] Start: 2013 Depression Screening Depression Scre ening [facility] Start: 2013 Diabetes mellitus screening Diabetes Screening [facility] Start: 2013 Hepatitis C screening Hepatitis C Sc reening [facility] Start: 2013 Hepatitis C Screening Hepatitis C [facility] Start: 2013 HIV Screening [facility] Screening [facility] Start: 2013 HIV screening HIV Screening [facility] Start: 2008 Varicella vaccination Varicell a Vaccines (1 of 2 - 13+ 2-dose series) [facility] Start: 2007 Depression Monitoring Depression Mon renuka [facility] Start: 2007 Depression Screening Depression Scre ening [facility] Start: 1996 MMR Vaccines (1 of 1 - Standard series) MMR Vaccines (1 of 1 - Standard series) [facility] Start: 1996 Varicella vaccination Varicell a Vaccines (1 of 2 - 2-dose childhood series) [facility] Start: 1995 Covid-19 Vaccine (#1) Covid-19 Vacci ne (#1) [facility] Start: 1995 Hepatitis B Vaccine (1 of 3 - 3-dose series) Hepatitis B Vaccine (1 of 3 - 3-dose series) [facility] Start: 1995 Hepatitis B Vaccines (1 of 3 - 3-dose series) Hepatitis B Vaccines (1 of 3 - 3-dose series) [facility] Start: 1995 HIV screening HIV Screening [facility] Start: 1995 Lipid panel Lipid Panel [facility] CSF Cell Count CSF Cell Count L ab Routine Multiple sclerosis (HCC) Ordered: 06/17/2024 [facility] Comment on above: Ordered: 06/17/2024 End: 06-22-2024 Mycobacterium sp identified in Unspecified specimen by Organism specific culture [facility] Work Phone: Comment on above: Once (Lab) for 1 Occ urrences starting 06/22/2024 until 06/22/2024 End: 06-22-2024 Oligoclonal banding [facility] Comment on above: Once (Lab) for 1 Occ urrences starting 06/22/2024 until 06/22/2024 Patient Education ED Back and Ne ck Pain, General [facility] Work Phone: Patient referral [facility] Work Phone: Immunizations Immunization Date Immunization Notes Care Provider Jay stockton 09-20-2017 tetanus toxoid, redu barbara diphtheria toxoid, and acellular pertussis vaccine, adsorbed BRIA SMITH MD [facility] Payers Date Payer Category Payer Medicaid HMO [facility] [place] [facility] [id number] 2024 Medicaid MEDICAID - [facility] mber [id number] 2024 Unknown [id number] 2023 Self-pay 2021 Commercial Managed [facility] [employer] [id number] 2021 Private Health Insurance [id number] 2021 Unknown [id number] 2021 Private Health Insurance [id number] 2016 Unknown [id number] 1995 Unknown [id number] Unknown Unknown [facility] STUDENT [employer] [id number] Unknown [id number] Unknown [id number] .462 Unknown [id number] .462 Unknown [id number] .462 Unknown [id number] .462 Unknown [id number] .462 Unknown [id number] .462 Unknown [id number] .462 Unknown [id number] .462 Unknown [id number] .462 Unknown [id number] [id number] .462 Unknown [id number] .462 Unknown [id number] .462 Unknown [id number] .462 Unknown [id number] .462 Social History Date Type Detail Facility Start: 05-27-2018 End: 08-15-2022 Tobacco smoking status Never smoked tobacco (finding) [facility] Sex Assigned At Sex [facility] Start: 03-11-2022 End: 09-08-2024 Alcohol intake Lifetime non-drinker (finding) [facility] Start: 1995 Sex Assigned At Not on file [facility] Start: 03-11-2022 End: 09-08-2024 History of Social function [facility] Start: 03-11-2022 End: 09-08-2024 Tobacco use panel [facility] Start: 01-20-2022 End: 10-22-2022 Exposure to SARS-CoV-2 (event) Not sure [facility] Start: 01-14-2023 End: 01-14-2023 Tobacco smoking status TNIS Unknown if ever smoked [facility] Start: 1995 Sex Assigned At Female [facility] Start: 10-08-2018 End: 08-15-2022 Tobacco use and exposure Smokeless tobacco non-user [facility] Start: 04-14-2019 End: 08-15-2022 Alcohol intake Current non-drinker of alcohol (finding) [facility] National Score (1-10 0), lower number is lower risk Not on file [facility] How often to you hav e a drink containing alcohol? Never [facility] Start: 10-21-2021 Sex Female (finding) [facility] Clinical Notes 12-23-2021 to 10-19-2024 Papa Wheeler RN - 10/19/2024 11:45 AM Shira Wheeler RN - 10/18/2024 11:45 AM Ildefonso Bowling APRN - SKIP - 09/08/2024 1:30 PM EDTTelephone Encounter - Papa Wheeler RN - 09/07/2024 3:14 PM EDT Note Date & Type Note Facility 10-19-2024 History of Presen t illness Narrative Patient tolerated infusion well. Discharged home with friend Cosigned by Bria Smith MD at 10/19/2024 3:07 PM EDT documented in this encounter [facility] 10-18-2024 History of Presen t illness Narrative Patient tolerated infusion well. Discharged home with friend Cosigned by Bria Smith MD at 10/18/2024 4:50 PM EDT documented in this encounter [facility] 09-08-2024 History of Presen t illness Narrative [facility] Primary Care Physician: Anirudh Jerez MD Chief Complaint: Chief Complaint Patient presents with Migraine Same DHE is going at the end of September Going stop taking Qulipta is it not helping Stopped taking propranolol In a lot of pain today She said she noticed when her sugar drops her migraine is worse Main Diagnosis: Diagnosis Plan 1. Intractable chronic migraine without aura and without status migrainosus History: given by the patient and EMR. EMR was personally reviewed prior to today's visit and included review of prior notes and intermediate communications. HPI: Ms. Rosy Rawls is a 29 y.o. female who is seen in the NEUROLOGY CLINIC of [facility] for complaint of headaches. Patient states that since June she has been experiencing headaches on the right temporal area. She states the area will swell and dick. She states the pain is started in the occipital region and will sometimes radiate to the right eye. She states she will experience neck pain as well. She states she has had migraines in the past but they had a different pattern. She states she used to have visual aura followed by pain. She states they were not as intense or frequent as now. Patient reports that sometimes she will still develop paresthesias and weakness in the right side of the face as well as the right arm. 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 She states that her Mother suffers from migraines. She has current associated symptoms of photophobia, phonophobia, nausea. She has had recent lab studies which returned normal. Patient is positive for anxiety, interstitial cystitis, and depression. Currently, patient is not taking any preventive medication. Patient is a non-smoker. She does hold a medical marijuana card and she smokes marijuana. She does not drink alcohol. The last visit was 07/05/2024 with this provider where the patient was continued on Ajovy for the prevention of migraine with good control. The patient received a steroid taper for an acute migraine. Headache characteristics: Description of pain: throbbing pain, bilateral in the occipital area. Duration of individual headaches: 8-36 hour(s), frequency weekly. Associated symptoms: aura, light sensitivity, nausea, and sound sensitivity. Pain relief: unable to obtain relief with OTC meds. Precipitating factors: stress. INTERVAL HISTORY: Today, the patient returns for follow up of migraine pain on current medication regimen. The patient states migraine becomes worse with lower blood sugar. She reports she has gained 100 lbs over the last several months but does not feel her diet has changed and eats rarely. The patient has tried several preventative and abortive medications but has experienced side effects or the medication was ineffective. The patient is tearful during her visit today as she has pain throughout her body including headache pain and cannot find relief. The patient is scheduled for DHE infusions at the end of September to help with current migraine cycle. The patient states she does not want to start any other medications at this time. Discussed a referral to weight management. The patient states her insurance will not cover a referral at this time. Advised the patient to increase activity as tolerated with walking daily. The patient reports a bone spur on her heal that limits her walking. Advised the patient a follow up will be placed for evaluation after DHE infusion is completed. The patient agreed and verbalized understanding. The patient denies side effects from medications and no new neurological deficits. Current Headache Meds: No current medications Side effects: No known side effects Previous medication trials: Topiramate Propranolol Ajovy Qulipta Nurtec Past Medical History: Diagnosis Date Abnormal Pap smear of cervix 2018 Anxiety Cystitis, interstitial Depression Migraine Past Surgical History: Procedure Laterality Date COLONOSCOPY COLPOSCOPY CYSTOSCOPY LUMBAR PUNCTURE 06/22/2024 NERVE BLOCK (HISTORICAL) UPPER GASTROINTESTINAL ENDOSCOPY Allergies Allergen Reactions Amoxicillin Hives Egg White (Egg Protein) Hives Erythromycin Hives Other reaction(s): HIVES Penicillins Hives Other reaction(s): HIVES Sulfamethoxazole-Trimethoprim Hives Other reaction(s): hives @HOMEMEDS@ Current Outpatient Medications Medication Sig Dispense Refill DULoxetine (Cymbalta) [address] capsule Take 30 mg by mouth every morning. Do not crush or chew. hydrOXYzine pamoate (Vistaril) 50 MG capsule TAKE 2 CAPSULES BY MOUTH 4 TIMES DAILY lamoTRIgine (LaMICtal) 100 MG tablet Take 100 mg by mouth every evening. repaglinide (Prandin) 1 MG tablet Take 1 mg by mouth daily. traZODone (Desyrel) 50 MG tablet TAKE TWO TABLETS BY MOUTH EVERY DAY AT BEDTIME DULoxetine (Cymbalta) [address] capsule Take 60 mg by mouth every evening. Do not crush or chew. melatonin 5 MG tablet 0 Refill(s) (Patient not taking: Reported on 09/08/2024) propranolol LA (Inderal LA) 80 MG 24 hr capsule Take 1 capsule (80 mg) by mouth Nightly. Do not crush, chew, or split. (Patient not taking: Reported on 09/08/2024) 30 capsule 2 No current facility-administered medications for this visit. No family history on file. Social Connections: Not on file REVIEW OF SYSTEMS: Review of Systems Constitutional: Positive for appetite change. Negative for activity change and chills. HENT: Negative for ear pain, facial swelling, mouth sores, rhinorrhea, sinus pain and tinnitus. Eyes: Negative for photophobia, pain and visual disturbance. Respiratory: Negative for cough and chest tightness. Gastrointestinal: Negative for abdominal pain, nausea and vomiting. Endocrine: Negative for cold intolerance and heat intolerance. Genitourinary: Negative for difficulty urinating. Allergic/Immunologic: Negative for food allergies. Neurological: Negative for dizziness, tremors, syncope, speech difficulty, weakness and numbness. Hematological: Bruises/bleeds easily. Psychiatric/Behavioral: Negative for confusion, decreased concentration and hallucinations. The patient is not nervous/anxious. All other systems reviewed and are negative. PHYSICAL EXAM: BP (!) 152/92 (BP Location: Left arm, Patient Position: Sitting, BP Cuff Size: Adult) Pulse 67 Ht 5' 9 (1.753 m) Wt 250 lb 12.8 oz (114 kg) BMI 37.04 kg/m Physical Exam Vitals and nursing note reviewed. Constitutional: Appearance: Normal appearance. She is normal weight. HENT: Head: Normocephalic. Nose: Nose normal. Eyes: Extraocular Movements: Extraocular movements intact. Conjunctiva/sclera: Conjunctivae normal. Pupils: Pupils are equal, round, and reactive to light. Pulmonary: Effort: Pulmonary effort is normal. Musculoskeletal: General: Normal range of motion. Cervical back: Normal range of motion. Skin: General: Skin is warm and dry. Neurological: General: No focal deficit present. Mental Status: She is alert and oriented to person, place, and time. Mental status is at baseline. Psychiatric: Mood and Affect: Mood normal. Behavior: Behavior normal. Thought Content: Thought content normal. Judgment: Judgment normal. Neuro: Alert and oriented x4. Language: fluent and prosodic. Content and vocabulary reasonable for age and education level. Attention and Concentration intact Fund of knowledge: Knowledge of current events demonstrated. CN II: PERRLA CN III, IV, : EOM intact, no end-gaze nystagmus CN VII: smiling and tight eye closure symmetric CN VIII: grossly intact Gait: routine gait steady ASSESSMENT: 29 y.o. female with past medical history as above who presents for follow up evaluation of headaches, with increase in migraine pain. IMPRESSION: Diagnosis Plan 1. Intractable chronic migraine without aura and without status migrainosus PLAN: 1. Patient scheduled for DHE infusions the end of September. Will reschedule to sooner appointment if there is a cancellation. 2. No new preventative or abortive medications at this time. 3. Return to neurology clinic in 2 months, sooner if needed. I hope that all of your questions and concerns were addressed during today's visit. Please don't hesitate to call the Department of Neurology at [phone] for any further concerns. Sincerely, JACE Romero CNP The above diagnosis and management plan were discussed at length with the patient who voiced understanding and agreed. Electronically signed by: JACE Romero CNP 09/08/2024 1:53 PM documented in this encounter [facility] 09-07-2024 Telephone encounter Note Patient prefers to wait for 3 day infusion at end of September. Scheduled for 10-18,,31 [facility] 09-07-2024 Miscellaneous Notes Patient prefers to wait for 3 day infusion at end of September. Scheduled for 10-18,,31 Name of Caller: Rosy Contact Reason for Appointment: Rosy returned call to Mar to schedule her infusion. Please reach out to Rosy when available. Office Name: [facility] Neurology documented in this encounter [facility] 09-07-2024 Telephone encounter Note Name of Caller: Rosy Contact Reason for Appointment: Rosy returned call to Papa to schedule her infusion. Please reach out to Rosy when available. Office Name: [facility] Neurology [facility] 07-05-2024 History of Presen t illness Narrative [facility] Primary Care Physician: Anirudh Jerez MD Chief Complaint: Chief Complaint Patient presents with Follow-up Migraine Main Diagnosis: Diagnosis Plan 1. Intractable chronic migraine without aura and without status migrainosus History: given by the patient and EMR. EMR was personally reviewed prior to today's visit and included review of prior notes and intermediate communications. HPI: Ms. Rosy Rawls is a 29 y.o. female who is seen in the NEUROLOGY CLINIC of [facility] for complaint of headaches. Patient states that since June she has been experiencing headaches on the right temporal area. She states the area will swell and dick. She states the pain is started in the occipital region and will sometimes radiate to the right eye. She states she will experience neck pain as well. She states she has had migraines in the past but they had a different pattern. She states she used to have visual aura followed by pain. She states they were not as intense or frequent as now. Patient reports that sometimes she will still develop paresthesias and weakness in the right side of the face as well as the right arm. 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 She states that her Mother suffers from migraines. She has current associated symptoms of photophobia, phonophobia, nausea. She has had recent lab studies which returned normal. Patient is positive for anxiety, interstitial cystitis, and depression. Currently, patient is not taking any preventive medication. Patient is a non-smoker. She does hold a medical marijuana card and she smokes marijuana. She does not drink alcohol. The last visit was 05/24/2024 with this provider where the patient was continued on Ajovy for the prevention of migraine with good control. The patient received a steroid taper for an acute migraine. Headache characteristics: Description of pain: throbbing pain, bilateral in the occipital area. Duration of individual headaches: 8-36 hour(s), frequency weekly. Associated symptoms: aura, light sensitivity, nausea, and sound sensitivity . Pain relief: unable to obtain relief with OTC meds. Precipitating factors: stress. INTERVAL HISTORY: Today, the patient returns for follow up of migraine pain on current medication regimen. During the previous office appointment the patient was prescribed topiramate to help with migraine pain the patient was experiencing. The patient states she was unable to continue the medication due to side effects. A prescription for propranolol was sent to help with prevention of migraine. The patient was also advised to take Ajovy every month for prevention of migraine. The patient reports today there has been some improvement in migraine control despite increased stressors at home and with school. The patient states headaches every day continue but are less intense since the end of March. The patient states she stopped control and feels this may be helping as well. Advised the patient to continue current medication regimen along with prioritizing stress management and sleep. The patient agreed and verbalized understanding. For the acute treatment of migraine the patient is using Reyvow but has side effects such as fatigue. The patient was seen by her PCP who ordered MRI brain. The MRI report stated nonspecific white matter plaques. The patient's PCP was concerned for MS. The patient's last MRI brain was in 2021 and was unremarkable. Due to concern for MS a lumbar puncture was completed and was negative for oligoclonal banding. The patient did not express any concern for MS symptoms. The patient denies side effects from medications and no new neurological deficits. Current Headache Meds: Ajovy Propranolol Nurtec Side effects: No known side effects Previous medication trials: Topiramate Past Medical History: Diagnosis Date Abnormal Pap smear of cervix 2018 Anxiety Cystitis, interstitial Depression Migraine Past Surgical History: Procedure Laterality Date COLONOSCOPY COLPOSCOPY CYSTOSCOPY LUMBAR PUNCTURE 06/22/2024 NERVE BLOCK (HISTORICAL) UPPER GASTROINTESTINAL ENDOSCOPY Allergies Allergen Reactions Amoxicillin Hives Egg White (Egg Protein) Hives Erythromycin Hives Other reaction(s): HIVES Penicillins Hives Other reaction(s): HIVES Sulfamethoxazole-Trimethoprim Hives Other reaction(s): hives @HOMEMEDS@ Current Outpatient Medications Medication Sig Dispense Refill DULoxetine (Cymbalta) [address] capsule Take 30 mg by mouth every morning. Do not crush or chew. DULoxetine (Cymbalta) [address] capsule Take 60 mg by mouth every evening. Do not crush or chew. fremanezumab (Ajovy) 225 MG/1.5ML auto-injector Inject 1 Pen (225 mg) under the skin every 30 (thirty) days. 4.5 mL 3 hydrOXYzine pamoate (Vistaril) 50 MG capsule TAKE 2 CAPSULES BY MOUTH 4 TIMES DAILY lamoTRIgine (LaMICtal) 100 MG tablet Take 100 mg by mouth every evening. melatonin 5 MG tablet 0 Refill(s) propranolol LA (Inderal LA) 80 MG 24 hr capsule Take 1 capsule (80 mg) by mouth Nightly. Do not crush, chew, or split. 30 capsule 2 traZODone (Desyrel) 50 MG tablet TAKE TWO TABLETS BY MOUTH EVERY DAY AT BEDTIME drospirenone-ethinyl estradiol (Betsy, Gianvi) 3-0.02 MG tablet Take 1 tablet by mouth daily. N-ACETYL CYSTEINE PO Take 1,000 mg by mouth daily. naratriptan (Amerge) 2.5 MG tablet Take 1 tablet (2.5 mg) by mouth Once as needed for migraine (may repeat x1). 9 tablet 3 ondansetron ODT (Zofran-ODT) 4 MG disintegrating tablet DISSOLVE 1 TABLET IN MOUTH EVERY 12 HOURS NEEDED FOR NAUSEA rizatriptan (Maxalt) 10 MG tablet Take 1 tablet (10 mg) by mouth Once as needed for migraine (may repeat x1) for up to 27 doses. May repeat in 2 hours if unresolved. Do not exceed 30 mg in 24 hours. 9 tablet 2 traMADol (Ultram) 50 MG tablet Take 50 mg by mouth 2 times daily as needed. Turmeric (QC TUMERIC COMPLEX PO) Take by mouth. No current facility-administered medications for this visit. No family history on file. Social Connections: Not on file REVIEW OF SYSTEMS: Review of Systems Constitutional: Positive for appetite change. Negative for activity change and chills. HENT: Negative for ear pain, facial swelling, mouth sores, rhinorrhea, sinus pain and tinnitus. Eyes: Negative for photophobia, pain and visual disturbance. Respiratory: Negative for cough and chest tightness. Gastrointestinal: Negative for abdominal pain, nausea and vomiting. Endocrine: Negative for cold intolerance and heat intolerance. Genitourinary: Negative for difficulty urinating. Allergic/Immunologic: Negative for food allergies. Neurological: Negative for dizziness, tremors, syncope, speech difficulty, weakness and numbness. Hematological: Bruises/bleeds easily. Psychiatric/Behavioral: Negative for confusion, decreased concentration and hallucinations. The patient is not nervous/anxious. All other systems reviewed and are negative. PHYSICAL EXAM: BP (!) 144/83 (BP Location: Right arm) Pulse 53 Temp 36.7 C (98.1 F) (Infrared) Ht 5' 9 (1.753 m) Wt 231 lb (105 kg) BMI 34.11 kg/m Physical Exam Vitals and nursing note reviewed. Constitutional: Appearance: Normal appearance. She is normal weight. HENT: Head: Normocephalic. Nose: Nose normal. Eyes: Extraocular Movements: Extraocular movements intact. Conjunctiva/sclera: Conjunctivae normal. Pupils: Pupils are equal, round, and reactive to light. Pulmonary: Effort: Pulmonary effort is normal. Musculoskeletal: General: Normal range of motion. Cervical back: Normal range of motion. Skin: General: Skin is warm and dry. Neurological: General: No focal deficit present. Mental Status: She is alert and oriented to person, place, and time. Mental status is at baseline. Psychiatric: Mood and Affect: Mood normal. Behavior: Behavior normal. Thought Content: Thought content normal. Judgment: Judgment normal. Neuro: Alert and oriented x4. Language: fluent and prosodic. Content and vocabulary reasonable for age and education level. Attention and Concentration intact Fund of knowledge: Knowledge of current events demonstrated. CN II: PERRLA CN III, IV, : EOM intact, no end-gaze nystagmus CN VII: smiling and tight eye closure symmetric CN VIII: grossly intact Gait: routine gait steady ASSESSMENT: 29 y.o. female with past medical history as above who presents for follow up evaluation of headaches, with increase in migraine pain. IMPRESSION: Diagnosis Plan 1. Intractable chronic migraine without aura and without status migrainosus PLAN: 1. Patient will continue Ajovy 225 mg every month. 2. Patient will continue propranolol LA 80 mg nightly for the prevention of migraine. 3. Return to neurology clinic in 2 months, sooner if needed. I hope that all of your questions and concerns were addressed during today's visit. Please don't hesitate to call the Department of Neurology at [phone] for any further concerns. Sincerely, JACE Romero CNP The above diagnosis and management plan were discussed at length with the patient who voiced understanding and agreed. Electronically signed by: JACE Romero CNP 07/05/2024 1:07 PM documented in this encounter [facility] 06-22-2024 Miscellaneous Notes Patient verbalized readiness to leave. Patient left with all medications, discharge paperwork, and verbalized all belongings present. Patient and family verbalized understanding of patient education. Patient left in wheelchair with family to drive. All questions answered. documented in this encounter [facility] 06-22-2024 Nurse Note Patient verbalized readiness to leave. Patient left with all medications, discharge paperwork, and verbalized all belongings present. Patient and family verbalized understanding of patient education. Patient left in wheelchair with family to drive. All questions answered. [facility] 06-22-2024 Note Interventional Radio logy Post Procedure: Rosy tolerated her Lumbar Puncture very well. She is alert and in no distress. She denies discomfort. Band aid to lower back LP site is dry and intact. No bleeding. No hematoma. Transfer to [facility] for recovery and discharge. [facility] 06-22-2024 Nurse Note Interventional Radiology Post Procedure: Rosy tolerated her Lumbar Puncture very well. She is alert and in no distress. She denies discomfort. Band aid to lower back LP site is dry and intact. No bleeding. No hematoma. Transfer to [facility] for recovery and discharge. [facility] 06-22-2024 Nurse Note Interventional Radiology Post Procedure: Rosy tolerated her Lumbar Puncture very well. She is alert and in no distress. She denies discomfort. Band aid to lower back LP site is dry and intact. No bleeding. No hematoma. Transfer to [facility] for recovery and discharge. IR Procedures: Rosy is here at [facility] for a LP . She has verbalized understanding of the procedural instructions. Dr. Spangler has spoken to her. History, allergies, medications and lab results reviewed. Informed consent has been signed. Prepped and draped in sterile fashion. Time out performed. She is on a monitor. Patient ready for the procedure. IR is ready. documented in this encounter [facility] 06-22-2024 Note IR Procedures: Rosy is here at [facility] for a LP . She has verbalized understanding of the procedural instructions. Dr. Spangler has spoken to her. History, allergies, medications and lab results reviewed. Informed consent has been signed. Prepped and draped in sterile fashion. Time out performed. She is on a monitor. Patient ready for the procedure. IR is ready. [facility] 06-22-2024 Nurse Note IR Procedures: Rosy is here at [facility] for a LP . She has verbalized understanding of the procedural instructions. Dr. Spangler has spoken to her. History, allergies, medications and lab results reviewed. Informed consent has been signed. Prepped and draped in sterile fashion. Time out performed. She is on a monitor. Patient ready for the procedure. IR is ready. [facility] 06-17-2024 Telephone encounter Note Results request faxed to PCP [facility] 06-17-2024 Miscellaneous Notes Results request faxed to PCP Called and spoke with patient to let her know an order for lumbar puncture was placed to follow up on MRI brain that was concerning for demyelinating disease. Patient's questions were answered. The patient reports complaints of fatigue, night sweats and chills, brain fog, uncontrolled weight gain, headaches, toes blue when cold. Advised the patient to keep scheduled follow up appointment in about 2 weeks and that results would be sent to her when they come in. The patient agreed and verbalized understanding. Please advise the patient the results of the MRI were received. Additional testing was ordered to further evaluate. An order for a lumbar puncture was placed. Lmovm. Please release message to patient as written. If patient had more recent MRI please ask where it was done so that we can request records. Please advise the patient the last MRI brain was 2021 that I can see and it is not concerning for MS. Most recent labs were also normal. It is advised that the patient follow up with psychiatry for depression symptoms. S: Patient's friend Rianna called [facility] today, reporting depression on the patient's behalf. B: Caller states the patient's symptoms began yesterday. Patient is initially absent for call, then phone was handed to her. Hx of suicide attempt in 2023. A: Caller reports patient had labs and imaging which was worrisome for MS. Patient states she is feeling horrible, sleeping more often, and feelings of sadness. Denies present suicidal ideations. Patient is with her godmother Rianna. Patient reports she feels safe now, is just tired. R: Patient states she was instructed to follow up with neurology regarding her MRI. Caller instructed to call back if patient has new or worsening symptoms. Home care advice reviewed per protocol with caller. Caller verbalizes understanding. Reason for Disposition Mild depression Protocols used: [id number] documented in this encounter [facility] 06-17-2024 Note Formatting of this n ote might be different from the original. Left message for patient regarding their lumbar puncture scheduled on 06/22/24 at 1:00 pm. Patient needs to arrive 30 minutes before procedure. OK to take medications and have a light meal prior to procedure. Patient must have a family member or a friend that can drive them home afterward. Call back number left. Patient to return call if they are taking any blood thinners or if they have questions/concerns. [facility] 06-17-2024 Miscellaneous Notes Left message for patient regarding their lumbar puncture scheduled on 06/22/24 at 1:00 pm. Patient needs to arrive 30 minutes before procedure. OK to take medications and have a light meal prior to procedure. Patient must have a family member or a friend that can drive them home afterward. Call back number left. Patient to return call if they are taking any blood thinners or if they have questions/concerns. documented in this encounter [facility] 06-17-2024 Telephone encounter Note Called and spoke with patient to let her know an order for lumbar puncture was placed to follow up on MRI brain that was concerning for demyelinating disease. Patient's questions were answered. The patient reports complaints of fatigue, night sweats and chills, brain fog, uncontrolled weight gain, headaches, toes blue when cold. Advised the patient to keep scheduled follow up appointment in about 2 weeks and that results would be sent to her when they come in. The patient agreed and verbalized understanding. [facility] 06-17-2024 Telephone encounter Note Please advise the patient the results of the MRI were received. Additional testing was ordered to further evaluate. An order for a lumbar puncture was placed. [facility] 06-17-2024 Telephone encounter Note Noted [facility] 06-17-2024 Miscellaneous Notes Noted Name of caller: Chasidy Contact phone number: [phone] Relationship to Patient: PCP office Provider: [facility] Practice: [facility] Chief Complaint/Reason for Call: Chasidy called in and obtained office fax number and will be faxing over patients MRI along with office visit notes for provider to review and is requesting patient be called if a sooner appointment is needed. Please be advised Best time of day caller can be reached: Any Patient advised that office/PCP has 24-48 business hours to return their call: N/A documented in this encounter [facility] 06-17-2024 Telephone encounter Note Lmovm. Please release message to patient as written. If patient had more recent MRI please ask where it was done so that we can request records. [facility] 06-17-2024 Telephone encounter Note Name of caller: Chasidy Contact phone number: [phone] Relationship to Patient: PCP office Provider: [facility] Practice: [facility] Chief Complaint/Reason for Call: Chasidy called in and obtained office fax number and will be faxing over patients MRI along with office visit notes for provider to review and is requesting patient be called if a sooner appointment is needed. Please be advised Best time of day caller can be reached: Any Patient advised that office/PCP has 24-48 business hours to return their call: N/A [facility] 06-17-2024 Telephone encounter Note Please advise the patient the last MRI brain was 2021 that I can see and it is not concerning for MS. Most recent labs were also normal. It is advised that the patient follow up with psychiatry for depression symptoms. [facility] 06-17-2024 Telephone encounter Note S: Patient's friend Rianna called [facility] today, reporting depression on the patient's behalf. B: Caller states the patient's symptoms began yesterday. Patient is initially absent for call, then phone was handed to her. Hx of suicide attempt in 2023. A: Caller reports patient had labs and imaging which was worrisome for MS. Patient states she is feeling horrible, sleeping more often, and feelings of sadness. Denies present suicidal ideations. Patient is with her godmother Rianna. Patient reports she feels safe now, is just tired. R: Patient states she was instructed to follow up with neurology regarding her MRI. Caller instructed to call back if patient has new or worsening symptoms. Home care advice reviewed per protocol with caller. Caller verbalizes understanding. Reason for Disposition Mild depression Protocols used: [id number] [facility] 05-24-2024 History of Presen t illness Narrative [facility] Primary Care Physician: Anirudh Jerez MD Chief Complaint: Chief Complaint Patient presents with Follow-up Intractable chronic migraine Main Diagnosis: Diagnosis Plan 1. Intractable chronic migraine without aura and without status migrainosus History: given by the patient and EMR. EMR was personally reviewed prior to today's visit and included review of prior notes and intermediate communications. HPI: Ms. Rosy Rawls is a 29 y.o. female who is seen in the NEUROLOGY CLINIC of [facility] for complaint of headaches. Patient states that since June she has been experiencing headaches on the right temporal area. She states the area will swell and dick. She states the pain is started in the occipital region and will sometimes radiate to the right eye. She states she will experience neck pain as well. She states she has had migraines in the past but they had a different pattern. She states she used to have visual aura followed by pain. She states they were not as intense or frequent as now. Patient reports that sometimes she will still develop paresthesias and weakness in the right side of the face as well as the right arm. 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 She states that her Mother suffers from migraines. She has current associated symptoms of photophobia, phonophobia, nausea. She has had recent lab studies which returned normal. Patient is positive for anxiety, interstitial cystitis, and depression. Currently, patient is not taking any preventive medication. Patient is a non-smoker. She does hold a medical marijuana card and she smokes marijuana. She does not drink alcohol. The last visit was 04/11/2024 with this provider where the patient was continued on Ajovy for the prevention of migraine with good control. The patient received a steroid taper for an acute migraine. Headache characteristics: Description of pain: throbbing pain, bilateral in the occipital area. Duration of individual headaches: 8-36 hour(s), frequency weekly. Associated symptoms: aura, light sensitivity, nausea, and sound sensitivity . Pain relief: unable to obtain relief with OTC meds. Precipitating factors: stress. INTERVAL HISTORY: Today, the patient returns for follow up of migraine pain on current medication regimen. During the previous office appointment the patient was prescribed a steroid taper to help with migraine pain the patient was experiencing. The patient states she was unable to continue the medication due to side effects. The patient also used her Ajovy injection early and the patient tried the Reyvow samples that she was provided. The patient traveled out of the country just a couple days after her previous appointment. She states migraine pain eventually subsided. The patient reports continued weekly migraine pain. Discussed trying topiramate for the prevention of migraine which the patient agreed to trying. Patient also continues monthly Ajovy injections. For the acute treatment of migraine the patient is using Reyvow but has side effects such as fatigue. Labs were normal. The patient denies side effects from medications and no new neurological deficits. Current Headache Meds: Ajovy Nurtec Side effects: No known side effects Past Medical History: Diagnosis Date Abnormal Pap smear of cervix 2018 Anxiety Cystitis, interstitial Depression Migraine Past Surgical History: Procedure Laterality Date COLONOSCOPY COLPOSCOPY CYSTOSCOPY NERVE BLOCK (HISTORICAL) UPPER GASTROINTESTINAL ENDOSCOPY Allergies Allergen Reactions Amoxicillin Hives Egg White (Egg Protein) Hives Erythromycin Hives Other reaction(s): HIVES Penicillins Hives Other reaction(s): HIVES Sulfamethoxazole-Trimethoprim Hives Other reaction(s): hives @HOMEMEDS@ Current Outpatient Medications Medication Sig Dispense Refill drospirenone-ethinyl estradiol (Betsy, Gianvi) 3-0.02 MG tablet Take 1 tablet by mouth daily. DULoxetine (Cymbalta) [address] capsule Take 30 mg by mouth every morning. Do not crush or chew. DULoxetine (Cymbalta) [address] capsule Take 60 mg by mouth every evening. Do not crush or chew. fremanezumab (Ajovy) 225 MG/1.5ML auto-injector Inject 1 Pen (225 mg) under the skin every 30 (thirty) days. 4.5 mL 3 hydrOXYzine pamoate (Vistaril) 50 MG capsule TAKE 2 CAPSULES BY MOUTH 4 TIMES DAILY lamoTRIgine (LaMICtal) 100 MG tablet Take 100 mg by mouth every evening. melatonin 5 MG tablet 0 Refill(s) N-ACETYL CYSTEINE PO Take 1,000 mg by mouth daily. naratriptan (Amerge) 2.5 MG tablet Take 1 tablet (2.5 mg) by mouth Once as needed for migraine (may repeat x1). 9 tablet 3 ondansetron ODT (Zofran-ODT) 4 MG disintegrating tablet DISSOLVE 1 TABLET IN MOUTH EVERY 12 HOURS NEEDED FOR NAUSEA traMADol (Ultram) 50 MG tablet Take 50 mg by mouth 2 times daily as needed. traZODone (Desyrel) 50 MG tablet TAKE TWO TABLETS BY MOUTH EVERY DAY AT BEDTIME Turmeric (QC TUMERIC COMPLEX PO) Take by mouth. rizatriptan (Maxalt) 10 MG tablet Take 1 tablet (10 mg) by mouth Once as needed for migraine (may repeat x1) for up to 27 doses. May repeat in 2 hours if unresolved. Do not exceed 30 mg in 24 hours. 9 tablet 2 No current facility-administered medications for this visit. No family history on file. Social Connections: Not on file REVIEW OF SYSTEMS: Review of Systems Constitutional: Positive for appetite change. Negative for activity change and chills. HENT: Negative for ear pain, facial swelling, mouth sores, rhinorrhea, sinus pain and tinnitus. Eyes: Negative for photophobia, pain and visual disturbance. Respiratory: Negative for cough and chest tightness. Gastrointestinal: Negative for abdominal pain, nausea and vomiting. Endocrine: Negative for cold intolerance and heat intolerance. Genitourinary: Negative for difficulty urinating. Allergic/Immunologic: Negative for food allergies. Neurological: Negative for dizziness, tremors, syncope, speech difficulty, weakness and numbness. Hematological: Bruises/bleeds easily. Psychiatric/Behavioral: Negative for confusion, decreased concentration and hallucinations. The patient is not nervous/anxious. All other systems reviewed and are negative. PHYSICAL EXAM: BP 120/76 Ht 5' 9 (1.753 m) Wt 231 lb (105 kg) BMI 34.11 kg/m Physical Exam Vitals and nursing note reviewed. Constitutional: Appearance: Normal appearance. She is normal weight. HENT: Head: Normocephalic. Nose: Nose normal. Eyes: Extraocular Movements: Extraocular movements intact. Conjunctiva/sclera: Conjunctivae normal. Pupils: Pupils are equal, round, and reactive to light. Pulmonary: Effort: Pulmonary effort is normal. Musculoskeletal: General: Normal range of motion. Cervical back: Normal range of motion. Skin: General: Skin is warm and dry. Neurological: General: No focal deficit present. Mental Status: She is alert and oriented to person, place, and time. Mental status is at baseline. Psychiatric: Mood and Affect: Mood normal. Behavior: Behavior normal. Thought Content: Thought content normal. Judgment: Judgment normal. Neuro: Alert and oriented x4. Language: fluent and prosodic. Content and vocabulary reasonable for age and education level. Attention and Concentration intact Fund of knowledge: Knowledge of current events demonstrated. CN II: PERRLA CN III, IV, : EOM intact, no end-gaze nystagmus CN VII: smiling and tight eye closure symmetric CN VIII: grossly intact Gait: routine gait steady ASSESSMENT: 29 y.o. female with past medical history as above who presents for follow up evaluation of headaches, with increase in migraine pain. IMPRESSION: Diagnosis Plan 1. Intractable chronic migraine without aura and without status migrainosus PLAN: 1. Patient will continue Ajovy 225 mg every month. 2. Prescription for topiramate taper sent to the pharmacy for patient to start for the prevention of migraine. 3. Return to neurology clinic in 6 weeks, sooner if needed. I hope that all of your questions and concerns were addressed during today's visit. Please don't hesitate to call the Department of Neurology at [phone] for any further concerns. Sincerely, JACE Romero CNP The above diagnosis and management plan were discussed at length with the patient who voiced understanding and agreed. Electronically signed by: JACE Romero CNP 05/24/2024 10:36 AM documented in this encounter [facility] 04-14-2024 Telephone encounter Note Requested Prescriptions Signed Prescriptions Disp Refills naratriptan (Amerge) 2.5 MG tablet 9 tablet 3 Sig: Take 1 tablet (2.5 mg) by mouth Once as needed for migraine (may repeat x1). Authorizing Provider: JAYE BOWLING [facility] 04-14-2024 Miscellaneous Notes Requested Prescriptions Signed Prescriptions Disp Refills naratriptan (Amerge) 2.5 MG tablet 9 tablet 3 Sig: Take 1 tablet (2.5 mg) by mouth Once as needed for migraine (may repeat x1). Authorizing Provider: JAYE BOWLING LMOVM released message to patient as written. Please inquire as to if the patient has tried the Reyvow sample. She can use it today if not. The patient can also use the Ajovy injection today. Name of caller: Rosy Contact phone number: [phone] Relationship to Patient: patient Provider: SKIP Bowling Practice: Neuro Chief Complaint/Reason for Call: Pt states the medication she was just prescribed on 04/11/24 has not been helping her with headaches. Please advise. Best time of day caller can be reached: any Patient advised that office/PCP has 24-48 business hours to return their call: N/A documented in this encounter [facility] 04-14-2024 Telephone encounter Note LMOVM released message to patient as written. [facility] 04-14-2024 Telephone encounter Note Please inquire as to if the patient has tried the Reyvow sample. She can use it today if not. The patient can also use the Ajovy injection today. [facility] 04-14-2024 Telephone encounter Note Name of caller: Rosy Contact phone number: [phone] Relationship to Patient: patient Provider: SKIP Bowling Practice: Neuro Chief Complaint/Reason for Call: Pt states the medication she was just prescribed on 04/11/24 has not been helping her with headaches. Please advise. Best time of day caller can be reached: any Patient advised that office/PCP has 24-48 business hours to return their call: N/A [facility] 04-11-2024 History of Presen t illness Narrative [facility] Primary Care Physician: Anirudh Jerez MD Chief Complaint: Chief Complaint Patient presents with Follow-up Migraine Worsening over last 2 weeks Main Diagnosis: Diagnosis Plan 1. Intractable chronic migraine without aura and without status migrainosus History: given by the patient and EMR. EMR was personally reviewed prior to today's visit and included review of prior notes and intermediate communications. HPI: Ms. Rosy Rawls is a 29 y.o. female who is seen in the NEUROLOGY CLINIC of [facility] for complaint of headaches. Patient states that since June she has been experiencing headaches on the right temporal area. She states the area will swell and dick. She states the pain is started in the occipital region and will sometimes radiate to the right eye. She states she will experience neck pain as well. She states she has had migraines in the past but they had a different pattern. She states she used to have visual aura followed by pain. She states they were not as intense or frequent as now. Patient reports that sometimes she will still develop paresthesias and weakness in the right side of the face as well as the right arm. 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 She states that her Mother suffers from migraines. She has current associated symptoms of photophobia, phonophobia, nausea. She has had recent lab studies which returned normal. Patient is positive for anxiety, interstitial cystitis, and depression. Currently, patient is not taking any preventive medication. Patient is a non-smoker. She does hold a medical marijuana card and she smokes marijuana. She does not drink alcohol. The last visit was 04/16/2023 with this provider where the patient was continued on Ajovy for the prevention of migraine with good control. Headache characteristics: Description of pain: throbbing pain, bilateral in the occipital area. Duration of individual headaches: 8-36 hour(s), frequency weekly. Associated symptoms: aura, light sensitivity, nausea, and sound sensitivity . Pain relief: unable to obtain relief with OTC meds. Precipitating factors: stress. INTERVAL HISTORY: Today, the patient returns for follow up of migraine pain on current medication regimen. The patient states today migraines have increased over the last 2 weeks. The patient reports experiencing photophobia, nausea, right ear pain and right jaw pain. The patient also reports water draining from ears. The patient denies head congestion. The patient states she was without Ajovy injections for a few weeks and then developed severe migraine pain. The patient reports trying over the counter medications, Nurtec and zofran with no relief of pain and nausea. The patient last used Ajovy on the first of the month. She is scheduled to leave the country for a [place] on Thursday. Discussed starting a steroid taper and receiving an injection with ketorolac to help break the current migraine cycle. Advised the patient a prescription for rizatriptan will be provided for the acute treatment of migraine and sample of Reyvow to try later in the week if other interventions are not effective. The patient agreed and verbalized understanding. The patient was advised she can use Ajovy before leaving to go out of the country on Thursday as well. The patient agreed and verbalized understanding. Lab orders will be placed to look for inflammation causing recent increase in migraine pain. The patient denies side effects from medications and no new neurological deficits. Current Headache Meds: Ajovy Nurtec Side effects: No known side effects Past Medical History: Diagnosis Date Abnormal Pap smear of cervix 2018 Anxiety Cystitis, interstitial Depression Migraine Past Surgical History: Procedure Laterality Date COLONOSCOPY COLPOSCOPY CYSTOSCOPY NERVE BLOCK (HISTORICAL) UPPER GASTROINTESTINAL ENDOSCOPY Allergies Allergen Reactions Amoxicillin Hives Egg White (Egg Protein) Hives Erythromycin Hives Other reaction(s): HIVES Penicillins Hives Other reaction(s): HIVES Sulfamethoxazole-Trimethoprim Hives Other reaction(s): hives @HOMEMEDS@ Current Outpatient Medications Medication Sig Dispense Refill drospirenone-ethinyl estradiol (Betsy, Gianvi) 3-0.02 MG tablet Take 1 tablet by mouth daily. DULoxetine (Cymbalta) [address] capsule Take 30 mg by mouth every morning. Do not crush or chew. DULoxetine (Cymbalta) [address] capsule Take 60 mg by mouth every evening. Do not crush or chew. fremanezumab (Ajovy) 225 MG/1.5ML auto-injector Inject 1 Pen (225 mg) under the skin every 30 (thirty) days. 4.5 mL 3 hydrOXYzine pamoate (Vistaril) 50 MG capsule TAKE 2 CAPSULES BY MOUTH 4 TIMES DAILY lamoTRIgine (LaMICtal) 100 MG tablet Take 100 mg by mouth every evening. melatonin 5 MG tablet 0 Refill(s) N-ACETYL CYSTEINE PO Take 1,000 mg by mouth daily. ondansetron ODT (Zofran-ODT) 4 MG disintegrating tablet DISSOLVE 1 TABLET IN MOUTH EVERY 12 HOURS NEEDED FOR NAUSEA traMADol (Ultram) 50 MG tablet Take 50 mg by mouth 2 times daily as needed. traZODone (Desyrel) 50 MG tablet TAKE TWO TABLETS BY MOUTH EVERY DAY AT BEDTIME Turmeric (QC TUMERIC COMPLEX PO) Take by mouth. adapalene (Differin) 0.1 % gel Apply topically Nightly. (Patient not taking: Reported on 04/11/2024) Clascoterone (Winlevi) 1 % cream Apply topically. (Patient not taking: Reported on 04/11/2024) clindamycin (Cleocin T) 1 % lotion Apply topically 2 times daily. (Patient not taking: Reported on 04/11/2024) DULoxetine (Cymbalta) [address] capsule Take 40 mg by mouth in the morning and 40 mg before bedtime. (Patient not taking: Reported on 04/11/2024) galcanezumab (Emgality) 120 MG/ML auto-injector Inject 1 pen (120 mg) under the skin every 30 days. (Patient not taking: Reported on 04/11/2024) 3 mL 3 glycopyrrolate (Robinul) 1 MG tablet (Patient not taking: Reported on 04/11/2024) No current facility-administered medications for this visit. No family history on file. Social Connections: Not on file REVIEW OF SYSTEMS: Review of Systems Constitutional: Positive for appetite change. Negative for activity change and chills. HENT: Negative for ear pain, facial swelling, mouth sores, rhinorrhea, sinus pain and tinnitus. Eyes: Negative for photophobia, pain and visual disturbance. Respiratory: Negative for cough and chest tightness. Gastrointestinal: Negative for abdominal pain, nausea and vomiting. Endocrine: Negative for cold intolerance and heat intolerance. Genitourinary: Negative for difficulty urinating. Allergic/Immunologic: Negative for food allergies. Neurological: Negative for dizziness, tremors, syncope, speech difficulty, weakness and numbness. Hematological: Bruises/bleeds easily. Psychiatric/Behavioral: Negative for confusion, decreased concentration and hallucinations. The patient is not nervous/anxious. All other systems reviewed and are negative. PHYSICAL EXAM: BP 136/79 (BP Location: Left arm) Pulse 82 Temp 37.4 C (99.3 F) (Infrared) Ht 5' 9 (1.753 m) Wt 231 lb (105 kg) BMI 34.11 kg/m Physical Exam Vitals and nursing note reviewed. Constitutional: Appearance: Normal appearance. She is normal weight. HENT: Head: Normocephalic. Nose: Nose normal. Eyes: Extraocular Movements: Extraocular movements intact. Conjunctiva/sclera: Conjunctivae normal. Pupils: Pupils are equal, round, and reactive to light. Pulmonary: Effort: Pulmonary effort is normal. Musculoskeletal: General: Normal range of motion. Cervical back: Normal range of motion. Skin: General: Skin is warm and dry. Neurological: General: No focal deficit present. Mental Status: She is alert and oriented to person, place, and time. Mental status is at baseline. Psychiatric: Mood and Affect: Mood normal. Behavior: Behavior normal. Thought Content: Thought content normal. Judgment: Judgment normal. Neuro: Alert and oriented x4. Language: fluent and prosodic. Content and vocabulary reasonable for age and education level. Attention and Concentration intact Fund of knowledge: Knowledge of current events demonstrated. CN II: PERRLA CN III, IV, : EOM intact, no end-gaze nystagmus CN VII: smiling and tight eye closure symmetric CN VIII: grossly intact Gait: routine gait steady ASSESSMENT: 29 y.o. female with past medical history as above who presents for follow up evaluation of headaches, now well controlled on current medication regimen. IMPRESSION: Diagnosis Plan 1. Intractable chronic migraine without aura and without status migrainosus Sedimentation rate, automated C-reactive protein Sedimentation rate, automated C-reactive protein ketorolac (Toradol) injection 60 mg PLAN: 1. Patient will continue Ajovy 225 mg every month. Patient will use Ajvoy later this week. 2. Lab orders placed to look for inflammation. 3. Ketorolac injection provided in the office today. 4. Steroid taper order placed to help with current migraine pain. 5. Patient provided with Reyvow samples along with instructions for use. 6. Prescription for rizatriptan sent for the acute treatment of migraine. 7. Return to neurology clinic in 6 weeks, sooner if needed. I hope that all of your questions and concerns were addressed during today's visit. Please don't hesitate to call the Department of Neurology at [phone] for any further concerns. Sincerely, Jaye Bowling, SENIOR COMMUNICATIONS SPECIALIST - SKIP The above diagnosis and management plan were discussed at length with the patient who voiced understanding and agreed. Electronically signed by: JACE Romero CNP 04/11/2024 1:28 PM The patient, Rosy Rawls's, identity was verified by name and . Informed patient of procedure. Received informed consent to proceed with Ketorolac 60 mg/ 2 mL injection. Injection given as ordered by JACE Romero CNP. Rosy Rawls waited 15 minutes after injection, tolerated procedure well. NDC: 13580-747-96 Lot: [id number] Exp: 08/19/2024 documented in this encounter [facility] 04-11-2024 Note The patient, Rosy Gan rd'moni, identity was verified by name and . Informed patient of procedure. Received informed consent to proceed with Ketorolac 60 mg/ 2 mL injection. Injection given as ordered by JACE Romero CNP. Rosy Rawls waited 15 minutes after injection, tolerated procedure well. NDC: 36391-773-33 Lot: [id number] Exp: 08/19/2024 [facility] 02-15-2024 Telephone encounter Note Requested Prescriptions Signed Prescriptions Disp Refills fremanezumab (Ajovy) 225 MG/1.5ML auto-injector 4.5 mL 3 Sig: Inject 1 Pen (225 mg) under the skin every 30 (thirty) days. Authorizing Provider: JAYE BOWLING [facility] 02-15-2024 Miscellaneous Notes Requested Prescriptions Signed Prescriptions Disp Refills fremanezumab (Ajovy) 225 MG/1.5ML auto-injector 4.5 mL 3 Sig: Inject 1 Pen (225 mg) under the skin every 30 (thirty) days. Authorizing Provider: JAYE BOWLING [facility] has obtained approved for Ajovy and pended Rx. Please route to [facility] documented in this encounter [facility] 02-15-2024 Telephone encounter Note [facility] has obtained approved for Ajovy and pended Rx. Please route to [facility] 02-12-2024 Telephone encounter Note I can print off this form. I just want to double check that this isnt something [facility] helps with. Patient is requesting TEVA rom gets filled out to help pay for Ajovy. [facility] 02-12-2024 Miscellaneous Notes I can print off this form. I just want to double check that this isnt something [facility] helps with. Patient is requesting TEVA rom gets filled out to help pay for Ajovy. Name of caller: Rosy Contact phone number: [phone] Relationship to Patient: patient Provider: SKIP Bowling Practice: [facility] [address] [facility] Chief Complaint/Reason for Call: Pt states she received a call from [employer] who advised that they have not been able to get in contact with anyone at the office. Pt states that an attempt was even made today. Pt states she was advised that the form can be found and downloaded off of their website and faxed back to them for processing. Pt provided website [employer] and fax# [phone]. Pt states she would like to be notified once this has been completed. Pt states she has chronic migraines and really needs for this to be completed as soon as possible. Please review. Best time of day caller can be reached: any Patient advised that office/PCP has 24-48 business hours to return their call: Yes Called and left message with [facility] Will provide information once they call back Name of caller: Rosy Contact phone number: [phone] Relationship to Patient: patient Provider: LEXY Bowling Practice: Neuro Chief Complaint/Reason for Call: Rosy said that [facility] called to see about the forms and to discuss the patient. Non one answered or responded. She would like a call to the [facility] at [phone] so she can be set up. Please advise. Best time of day caller can be reached: any Patient advised that office/PCP has 24-48 business hours to return their call: Yes Noted. FYI: Name of caller: Rosy Contact phone number: [phone] Relationship to Patient: patient Provider: SKIP Bowling Practice: [facility] Chief Complaint/Reason for Call: Patient states that her insurance will no longer cover Ajovy and she is in the middle of the try and fail stage currently trying Emgality, which is not working at all. Patient states that instead of going three months in pain to complete the try and fail medications she would like to sign up with [facility] to get payment assistance for the Ajovy since it worked so well. Patient states that a [facility] disability representative will be reaching out to the office to request an active prescription. Please advise. Best time of day caller can be reached: Any Patient advised that office/PCP has 24-48 business hours to return their call: No documented in this encounter [facility] 02-12-2024 Telephone encounter Note Name of caller: Rosy Contact phone number: [phone] Relationship to Patient: patient Provider: SKIP Bowling Practice: [facility] [address] [facility] Chief Complaint/Reason for Call: Pt states she received a call from [employer] who advised that they have not been able to get in contact with anyone at the office. Pt states that an attempt was even made today. Pt states she was advised that the form can be found and downloaded off of their website and faxed back to them for processing. Pt provided website [employer] and fax# [phone]. Pt states she would like to be notified once this has been completed. Pt states she has chronic migraines and really needs for this to be completed as soon as possible. Please review. Best time of day caller can be reached: any Patient advised that office/PCP has 24-48 business hours to return their call: Yes [facility] 02-03-2024 Telephone encounter Note Called and left message with [employer]. Will provide information once they call back [facility] 02-03-2024 Miscellaneous Notes Called and left message with [employer]. Will provide information once they call back Name of caller: Rosy Contact phone number: [phone] Relationship to Patient: patient Provider: LEXY Bowling Practice: Neuro Chief Complaint/Reason for Call: Rosy said that [employer] [facility] called to see about the forms and to discuss the patient. Non one answered or responded. She would like a call to the [facility] at [phone] so she can be set up. Please advise. Best time of day caller can be reached: any Patient advised that office/PCP has 24-48 business hours to return their call: Yes Noted. FYI: Name of caller: Rosy Contact phone number: [phone] Relationship to Patient: patient Provider: SKIP Bowling Practice: [facility] Chief Complaint/Reason for Call: Patient states that her insurance will no longer cover Ajovy and she is in the middle of the try and fail stage currently trying Emgality, which is not working at all. Patient states that instead of going three months in pain to complete the try and fail medications she would like to sign up with [facility] to get payment assistance for the Ajovy since it worked so well. Patient states that a [facility] disability representative will be reaching out to the office to request an active prescription. Please advise. Best time of day caller can be reached: Any Patient advised that office/PCP has 24-48 business hours to return their call: No documented in this encounter [facility] 02-01-2024 Telephone encounter Note Name of caller: Rosy Contact phone number: [phone] Relationship to Patient: patient Provider: LEXY Bowling Practice: Neuro Chief Complaint/Reason for Call: Rosy said that [facility] called to see about the forms and to discuss the patient. Non one answered or responded. She would like a call to the [facility] at [phone] so she can be set up. Please advise. Best time of day caller can be reached: any Patient advised that office/PCP has 24-48 business hours to return their call: Yes [facility] 02-01-2024 Miscellaneous Notes Name of caller: Rosy Contact phone number: [phone] Relationship to Patient: patient Provider: LEXY Bowling Practice: Neuro Chief Complaint/Reason for Call: Rosy said that [facility] called to see about the forms and to discuss the patient. Non one answered or responded. She would like a call to the [facility] at [phone] so she can be set up. Please advise. Best time of day caller can be reached: any Patient advised that office/PCP has 24-48 business hours to return their call: Yes Noted. FYI: Name of caller: Rosy Contact phone number: [phone] Relationship to Patient: patient Provider: SKIP Bowling Practice: [facility] Chief Complaint/Reason for Call: Patient states that her insurance will no longer cover Ajovy and she is in the middle of the try and fail stage currently trying Emgality, which is not working at all. Patient states that instead of going three months in pain to complete the try and fail medications she would like to sign up with [facility] to get payment assistance for the Ajovy since it worked so well. Patient states that a [facility] disability representative will be reaching out to the office to request an active prescription. Please advise. Best time of day caller can be reached: Any Patient advised that office/PCP has 24-48 business hours to return their call: No documented in this encounter [facility] 01-11-2024 Telephone encounter Note Noted. [facility] 01-11-2024 Telephone encounter Note FYI: Name of caller: Rosy Contact phone number: [phone] Relationship to Patient: patient Provider: SKIP Bowling Practice: [facility] Chief Complaint/Reason for Call: Patient states that her insurance will no longer cover Ajovy and she is in the middle of the try and fail stage currently trying Emgality, which is not working at all. Patient states that instead of going three months in pain to complete the try and fail medications she would like to sign up with [facility] to get payment assistance for the Ajovy since it worked so well. Patient states that a [facility] disability representative will be reaching out to the office to request an active prescription. Please advise. Best time of day caller can be reached: Any Patient advised that office/PCP has 24-48 business hours to return their call: No [facility] 12-08-2023 Telephone encounter Note Requested Prescriptions Signed Prescriptions Disp Refills galcanezumab (Emgality) 120 MG/ML auto-injector 2 mL 0 Sig: Inject 2 pens (240 mg) under the skin once for first month loading dose. Authorizing Provider: JAYE BOWLING galcanezumab (Emgality) 120 MG/ML auto-injector 3 mL 3 Sig: Inject 1 pen (120 mg) under the skin every 30 days. Authorizing Provider: JAYE BOWLING [facility] 12-08-2023 Miscellaneous Notes Requested Prescriptions Signed Prescriptions Disp Refills galcanezumab (Emgality) 120 MG/ML auto-injector 2 mL 0 Sig: Inject 2 pens (240 mg) under the skin once for first month loading dose. Authorizing Provider: JAYE BOWLING galcanezumab (Emgality) 120 MG/ML auto-injector 3 mL 3 Sig: Inject 1 pen (120 mg) under the skin every 30 days. Authorizing Provider: JAYE BOWLING Ajovy PA denied. Insurance message: The request for coverage for AJOVY INJ 225/1.5, use as directed (1.5 per month), is denied. This decision is based on health plan criteria for AJOVY INJ 225/1.5. This medicine is covered only if: You have failed (after a trial of at least three months) or cannot use both of the following (document date tried): (A) Aimovig (B) Emgality 120mg The information provided does not show that you meet the criteria listed above Emgality is most similar mechanistically. Pended RX for loading and maintenance dose. Approve if appropriate. documented in this encounter [facility] 12-08-2023 Telephone encounter Note Ajovy PA denied. Insurance message: The request for coverage for AJOVY INJ 225/1.5, use as directed (1.5 per month), is denied. This decision is based on health plan criteria for AJOVY INJ 225/1.5. This medicine is covered only if: You have failed (after a trial of at least three months) or cannot use both of the following (document date tried): (A) Aimovig (B) Emgality 120mg The information provided does not show that you meet the criteria listed above Emgality is most similar mechanistically. Pended RX for loading and maintenance dose. Approve if appropriate. [facility] 10-20-2023 Telephone encounter Note Noted [facility] 10-20-2023 Miscellaneous Notes Noted We last dispensed a 30 day supply of Ajovy in May 2023. Pt has been unreachable since. We have tried her #, and her father as well, with no response from pt. Please ask her to call us to refill her medication at [phone]. Thank you. documented in this encounter [facility] 10-20-2023 Telephone encounter Note We last dispensed a 30 day supply of Ajovy in May 2023. Pt has been unreachable since. We have tried her #, and her father as well, with no response from pt. Please ask her to call us to refill her medication at [phone]. Thank you. [facility] 09-15-2023 Emergency department Note Report to transport. Pt left ED with steady gait and in NAD, vitals stable for transport. Pt and transport deny needs or concerns. Left with one bag of belongings Neisha Gusman RN 09/15/232301 [facility] 09-15-2023 Emergency department Note Report to transport. Pt left ED with steady gait and in NAD, vitals stable for transport. Pt and transport deny needs or concerns. Left with one bag of belongings Neisha Gusman RN 09/15/232301 LEXY Mai in for DC vitals [facility] [place] 09/15/232248 [facility] to transport pt to [facility] Pt has 1 bag, plus a steeplechase jockey in small plastic bag [facility] [place] 09/15/232246 Pt returned phone [facility] [place] 09/15/232109 ETA for transport is 2140 Neisha Gusman RN 09/15/232035 Pt is now sitting on the flr in the corner of [facility] [place] 09/15/232011 Pt is aggressively pacing the rm with gowns hanging group home off [facility] [place] 09/15/231957 Pt escorted to restroom by [employer]. Dandre Crawford 09/15/231949 Pt pressed call light. [employer] at bedside. Pt pacing around room. Dandre Crawford 09/15/231948 Report to LEXY Driver. Alesha Vang RN 09/15/231920 Report to ZACHARY Benitez at [facility]. Alesha Vang RN 09/15/231749 Pt called this nurse into room and stated after eating she developed blisters on the roof of her mouth. MD notified via secure chat Sirena Ayers RN 09/15/231743 This RN received call from [employer] at this time. Patient being accepted by doctor torie. Pt to be sent after 8pm tonight. For nurse to nurse [phone]. Alesha Vang RN 09/15/23 1720 COMMODITIES TRADER at bedside Sirena Ayers RN 09/15/23 1827 Crystal (Psych) at bedside Russbrandan Garcia 09/15/23 1653 Provider at bedside Russ Garcia 09/15/23 1620 Psych at bedside. Lizett Martinez 09/15/23 1437 Pt family at bedside. Lizett Martinez 09/15/23 1359 PT. WAS CHANGED INTO HOSPITAL GOWN,SKIN ASSESSMENT COMPLETED BY NURSING. PT WANDED AND ALL BELONGINGS INVENTORIED AND LOCKED IN CABINET BY PROTECTIVE SERVICE. Pt has 1 bag. Lizett Martinez 09/15/23 1327 Emergency Department Encounter [facility] EMERGENCY DEPT Patient: Rosy Rawls : 1995 Date of Evaluation: 09/15/2023 ED Supervising Physician: Anshu Chinchilla MD I personally evaluated Rosy Rawls and made/approved the management plan and take responsibility for the patient management. This will serve as my Supervisory note and shared attestation. I did perform a substantive portion of the visit including all aspects of the Medical Decision Making. I wore appropriate PPE for the entirety of this encounter. In brief, Rosy Rawls is a 28 y.o. that presents to the emergency department for suicidal ideation. Per EMS she sent a detailed text about ideas at self-harm to her mother. Her mother did confirm this. She is on several psychiatric medications. She sees a psychiatrist. She has been self harming with scratching to the legs and abdomen and hitting her head on the wall. Denies hallucinations delusions. Denies any overdose or intoxication. Lives alone states she does not own a gun. Focused exam: Awake alert no acute distress anxious Head is atraumatic neck is supple Heart sounds regular no respiratory distress Scratch taveras noted to the abdomen and thighs without any laceration or cellulitis Nervous anxious depressed mood cooperative oriented x 3 Brief ED course/MDM: 28-year-old female here with suicidal thoughts. Differential depression anxiety self-harm. She was pink slipped. Will be medically cleared for psych eval and anticipate inpatient hospitalization for stabilization. Medical history impacting this visit includes depression. Social history impacting this visit includes no drug abuse. Diagnostics interpreted by me: none I personally discussed the patient's management with other clinicians: none All diagnostic, treatment, and disposition decisions were made by myself in conjunction with the Resident. I also supervised monae portions of any procedures performed by the Resident. For all further details of the patient's emergency department visit, please see their documentation. (Comment: Please note this report has been produced using speech recognition software and may contain errors related to that system including errors in grammar, punctuation, and spelling, as well as words and phrases that may be inappropriate. If there are any questions or concerns please feel free to contact the dictating provider for clarification.) Anshu Chinchilla MD Acute Care [facility] Anshu Chinchilla MD 09/15/23 9726 documented in this encounter [facility] 09-15-2023 Emergency department Note RN [facility]232[facility] 09-15-2023 Emergency department Note [facility] arrived to transport pt to [facility] Pt has 1 bag, plus a steeplechase jockey in small plastic bag [facility] [place] 09/15/232246 [facility] 09-15-2023 Emergency department Note [facility]/232109 [facility] 09-15-2023 Emergency department Note ETA for transport is 2140 Neisha Gusman RN 09/15/232035 [facility] 09-15-2023 Emergency department Note Pt is now [facility]/232011 [facility] 09-15-2023 Emergency department Note Pt is aggressively pacing the rm with gowns hanging group home off [facility] [place] 09/15/231957 [facility] 09-15-2023 Emergency department Note Pt escorted to restroom by Danita Koo. Dandre Crawford 09/15/231949 [facility] 09-15-2023 Emergency department Note Pt pressed call light. Danita Koo at bedside. Pt pacing around room. Dandre Crawford 09/15/23 194 [facility] 09-15-2023 Emergency department Note Report to LEXY Driver. Alesha Vang RN 09/15/231920 [facility] 09-15-2023 Emergency department Note Report to ZACHARY Benitez at [facility]. Alesha Vang RN 09/15/23 175 [facility] 09-15-2023 Emergency department Note Pt called this nurse into room and stated after eating she developed blisters on the roof of her mouth. MD notified via secure chat Sirena Ayers RN 09/15/231743 [facility] 09-15-2023 Emergency department Note This RN received call from [employer] [facility] at this time. Patient being accepted by doctor torie. Pt to be sent after 8pm tonight. For nurse to nurse [phone]. Alesha Vang RN 09/15/23 1720 [facility] 09-15-2023 Emergency department Note COMMODITIES TRADER at bedside Sirena Ayers RN 09/15/23 1827 [facility] 09-15-2023 Emergency department Note Crystal (Psych) at bedside Russ Garcia 09/15/23 1653 [facility] 09-15-2023 Note Formatting of this n ote might be different from the original. Called [facility] spoke with intake- reports that there is no beds and approx 5 on the wait list. Called [facility]- spoke with intake who reports there no female beds available Called [facility] who reports that there is a female bed available [facility]- who reports that they have female beds available [facility] fax [facility] 09-15-2023 Note Formatting of this n ote might be different from the original. Called [facility] spoke with intake- reports that there is no beds and approx 5 on the wait list. Called [facility]- spoke with intake who reports there no female beds available Called [facility] who reports that there is a female bed available Called [facility]- who reports that they have female beds available Will fax [facility] 09-15-2023 Miscellaneous Notes [facility] spoke with intake- reports that there is no beds and approx 5 on the wait list. Called [facility]- spoke with intake who reports there no female beds available Called [facility] who reports that there is a female bed available Called [facility]- who reports that they have female beds available Will fax [facility] documented in this encounter [facility] 09-15-2023 Emergency department Note Provider at bedside Russ Garcia 09/15/23 1620 [facility] 09-15-2023 History of Presen t illness Narrative Department of Psychiatry Nurse Practitioner Emergency Psychiatric Evaluation CHIEF COMPLAINT: Chief Complaint Patient presents with Suicidal Per EMS, pt sent a detailed text about self harm. Pt stated suicidal but wouldn't actually carry out a plan. Pt told this nurse she has a plan but I dont think I could do it HISTORY OF PRESENT ILLNESS: The patient is a 28 y.o.female with significant past medical history of depression, anxiety, dermatillomania, and PTSD who arrived by ambulance after voicing SI and self harming. Per Emergency Room Evaluation: Rosy Rawls is a 28 y.o. female with past medical history chronic migraine who presents to the emergency department complaining of my parents sent me in here due to self-harm Patient reports sending text messages to mom about self-harm. States you can look at the text if you want. States she has suicidal ideations. She has scratches on her legs and abdomen from her nails. 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 Denies homicidal ideations. Per EMS patient sent a detailed text about self-harm. Patient told this to nurse that she has a plan but I do not think I could do it Per ED Psych Eval: On interview, patient laying in bed with parents at bedside. Requested parents to wait in waiting room during evaluation. Patient reports that she has had chronic SI and self harming behavior though states it has escalated recently approx over the last two months. States that she scratches herself, shows this provider scratches on legs and abdomen. States that she will hit herself in the head with a chairlift operator, bangs her head. States that she sent a text to her mother on Thursday telling her the details of her self harm, also making hopeless statements, and vague SI statements. Reports that they forced her to come to their house. States that today she was downstairs and they called 911. States that she was making statements about not wanting to live and asking them to take her home. Admits to suicidal ideation, though states I don't think I would do it. Later admits to having googled ways to kill herself but I haven't purchased anything and is unwilling to provide details. Denies HI, AVH, paranoia. Reports compliance with medications. Talks about how she has had a decrease in appetitive and intentional weight loss after starting Semaglutide approx 2.5 months ago. States that she always had SI and self harming behavior and feels that this has intensified it but it's always there. Patient denies ever being psychiatrically hospitalized in the past. 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 Collateral was obtained from the following individual: Yes - Spoke with pt mother and father Autumn Rawls [phone] and Josep Rawls [phone] who reports that the pt sent a long text message regarding how she has been self harming and suicidal ideation. States they are both in the mental health field so they gave her options of coming home with them and they were going to stay with her 13/10, coming into the hospital, or they were going to call the police. States that she did well for a little, but today kept making statements of wanting to be and was self harming so they called 911. Reports that they contact her psychiatrist and IOP who both suggested to bring the pt into the ED. REVIEW OF SYSTEMS: Medical Review Of Systems: Review of Systems Constitutional: Positive for activity change and fatigue. HENT: Negative. Gastrointestinal: Negative. Skin: Reddened areas on face- suspect from picking Pt showed this provider scratches on legs and abdomen- self inflicted with finger nails Neurological: Negative. Psychiatric/Behavioral: Positive for self-injury and suicidal ideas. The patient is nervous/anxious. Psychiatric Review Of Systems: Depressed mood: yes Sleep changes: poor- talks about how she is often in [place] and wakes up not knowing if she's still in a dream or not Appetite changes: Decreased- per pt mother pt ate very little food over the last few days Weight changes: yes- unsure amount Energy changes: exhausted Loss of interest/anhedonia: yes Anxiety/panic: yes Guilty/hopeless: Feelings of both guilt and hopeless Self-injurious/risky behavior: yes Suicidal ideation: yes Homicidal ideation:Denies Access to weapons: reports that she has access to [employer] Psychiatric Review Of Systems: Deshawn or hypomania:Denies Panic attacks: yes Phobias:Denies PTSD: yes Obsessions/compulsions: yes Hallucinations:Denies Delusions:Denies PAST PSYCHIATRIC HISTORY: The patient is currently receiving care for the above psychiatric illness with Dr. Angelo in [place]. Past mental health outpatient care includes: Dr. Angelo and therapists through [facility], [facility] Previous psychiatric hospitalizations: Denies Previous diagnoses: Depression, cocaine, ptsd Previous suicide attempts:Denies History of self-injurious behavior: yes History of violence:Denies Past psychiatric medications include: ativan, cymbalta, vistaril, elavil, buspar, lexapro, abilify PAST MEDICAL/SURGICAL HISTORY: Past Medical History: Past Medical History: Diagnosis Date Abnormal Pap smear of cervix 2018 Anxiety Cystitis, interstitial Depression Past Surgical History: Past Surgical History: Procedure Laterality Date COLONOSCOPY COLPOSCOPY CYSTOSCOPY NERVE BLOCK (HISTORICAL) UPPER GASTROINTESTINAL ENDOSCOPY CURRENT MEDICATIONS/ALLERGIES: No current facility-administered medications for this encounter. Current Outpatient Medications Medication Sig Dispense Refill adapalene (Differin) 0.1 % gel Apply topically Nightly. Clascoterone (Winlevi) 1 % cream Apply topically. clindamycin (Cleocin T) 1 % lotion Apply topically 2 times daily. DULoxetine (Cymbalta) [address] capsule Take 40 mg by mouth in the morning and 40 mg before bedtime. fremanezumab (Ajovy) 225 MG/1.5ML auto-injector Inject 1 Pen (225 mg) under the skin every 30 (thirty) days. 1.68 mL 5 glycopyrrolate (Robinul) 1 MG tablet hydrOXYzine pamoate (Vistaril) 50 MG capsule TAKE 2 CAPSULES BY MOUTH 4 TIMES DAILY traZODone (Desyrel) 50 MG tablet TAKE TWO TABLETS BY MOUTH EVERY DAY AT BEDTIME Allergies: Allergies Allergen Reactions Amoxicillin Hives Egg White (Egg Protein) Hives Erythromycin Hives Other reaction(s): HIVES Penicillins Hives Other reaction(s): HIVES Sulfamethoxazole-Trimethoprim Hives Other reaction(s): hives FAMILY HISTORY: Psychiatric Family History: Mother- depression Family history of suicide:Denies SOCIAL HISTORY: Relationship status: Single Children: Denies Living situation: Apartment- with cat Level of education: Currently in school for PHD 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 [employer] service:Denies Legal history:Denies Trauma history: yes- unwilling to disclose Substance Use History: Nicotine:Denies Alcohol:Denies Recreational Drugs: Reports daily marijuana use Caffeine: Denies PSYCHIATRIC EXAMINATION: Vitals: Vitals: 09/15/23 1436 BP: (!) 143/88 Pulse: 98 Resp: 18 Temp: 37.5 C (99.5 F) SpO2: 97% Physical Examination: Constitutional: well developed, well nourished, in no acute distress, alert, and oriented X 3 Musculoskeletal: gait Not examined Mental Status Examination: Appearance: moderately kept, appears stated age, in hospital gown, reddened areas on face Attitude toward examiner: Cooperative, Guarded., and Fair eye contact. Behavior/motor: Rocking back and forth Speech: Coherent and Regular rate, rhythm, volume and articulation Mood: Lets say on a scale of 1-10, I'm a 0.3 Affect: Sad/tearful, Anxious, Irritable, and Congruent with mood and topic of conversation Thought process: Linear, goal directed Thought content: Within normal limits Thought perception: No perceptual abnormalities noted Suicidal ideation: yes Homicidal ideation: Denies Cognition: oriented to person, place, time/date, and situation Memory: Within Normal Limits Insight: poor Judgment: poor DATA REVIEWED: Prior records have been reviewed: Labs/EKG: Recent Results (from the past 24 hour(s)) CBC auto differential Collection Time: 09/15/23 1:13 PM Result Value Ref Range Auto WBC 9.8 3.6 - 10.7 10*3/uL RBC 4.69 3.80 - 5.20 10*6/uL Hemoglobin 14.3 11.7 - 16.0 g/dL Hematocrit 40.6 35.0 - 47.0 % MCV 86.6 77.0 - 99.0 fL MCH 30.5 26.0 - 34.0 pg MCHC 35.2 30.5 - 36.0 % RDW 12.3 11.5 - 15.0 % Platelets 234 140 - 440 10*3/uL MPV 9.4 9.0 - 12.7 fL nRBC 0.0 0.0 - 2.0 /100 WBCs Neutrophils Relative 58.8 38.0 - 82.0 % Lymphocytes Relative 31.1 15.0 - 45.0 % Monocytes Relative 8.8 5.0 - 13.0 % Eosinophils Relative 0.8 0.0 - 6.0 % Basophils Relative 0.3 0.0 - 2.0 % Immature Grans % 0.2 0.0 - 2.0 % Neutrophils Absolute 5.8 1.8 - 7.5 10*3/uL Lymphocytes Absolute 3.1 1.0 - 4.3 10*3/uL Monocytes Absolute 0.9 0.0 - 0.9 10*3/uL Eosinophils Absolute 0.1 0.0 - 0.5 10*3/uL Basophils Absolute 0.0 0.0 - 0.2 10*3/uL Immature Grans Absolute 0.0 <0.1 10*3/uL Comprehensive metabolic panel Collection Time: 09/15/23 1:13 PM Result Value Ref Range SODIUM 136 135 - 145 mmol/L POTASSIUM 3.9 3.5 - 5.1 mmol/L CHLORIDE 107 98 - 107 mmol/L CARBON DIOXIDE 17 (L) 22 - 30 mmol/L ANION GAP 11 3 - 13 mmol/L UREA NITROGEN 9 7 - 17 mg/dL CREATININE 0.80 0.52 - 1.04 mg/dL GLUCOSE 98 70 - 100 mg/dL CALCIUM 9.7 8.4 - 10.4 mg/dL AST (SGOT) 43 15 - 46 U/L ALT 47 (H) 0 - 34 U/L ALKALINE PHOSPHATASE 61 38 - 126 U/L ALBUMIN 4.5 3.5 - 5.0 g/dL BILIRUBIN, TOTAL 1.0 0.2 - 1.3 mg/dL TOTAL PROTEIN 7.7 6.3 - 8.2 g/dL eGFR >90.0 >60.0 mL/min/1.73m*2 Ethanol Collection Time: 09/15/23 1:13 PM Result Value Ref Range ETHANOL IN SER/PLAS <0.010 0.000 - 0.010 g/dL SARS-CoV-2 Antigen Collection Time: 09/15/23 1:14 PM Specimen: Nasal; Swab Result Value Ref Range SARS-CoV-2 Antigen Negative Negative ECG 12 lead Collection Time: 09/15/23 1:47 PM Result Value Ref Range Heart Rate 98 bpm QRSD Interval 69 ms QT Interval 346 ms QTC Interval 442 ms P [place] 57 degrees QRS [place] 60 degrees T Wave [place] 32 degrees [place] Interval 147 ms PDMP records have been reviewed ASSESSMENT: 28year old female BIB ambulance after pt parents called 911 d/t concerns for self injurious behavior and SI. During evaluation pt reports increase in self harm and SI over the last couple months. Admits to recently googeling ways to kill herself, though unwilling to provide further details. States that she did not purchase anything to kill herself at this time. Escalation of care, including admission to inpatient psychiatry, was considered. Plan to refer pt to outside psychiatric hospitals due to bed availability on [place]. Diagnostic Impression: Suicidal Ideation Self Harming Behavior Unspecified mood disorder Unspecified anxiety disorder The differential diagnosis associated with the pt's presentation includes: PTSD, MDD Risk of harm to self: Suicide Risk Assessment (SAFE-T): C-SSRS Screener (Since Last Contact): 1. Wish to be ? Yes 2. Current suicidal thoughts? Yes 3. Suicidal thoughts w/ method? Yes 4. Suicidal Intent without specific plan? No 5. Intent with plan? Yes 6. Suicidal behavior? No Calculated C-SSRS Risk Score High Risk Risk Level: High Risk - Risk Factors include: Depression, History of impulsivity and/or aggressive behavior , History of self harm , History of trauma or abuse , Hopelessness , Suicidal ideation , and Unwillingness to seek help , Protective Factors include: Denies history of suicide attempts , History of adhering to treatment recommendations and/or prescribed medication regimen , and Interpersonal relationships and supports, e.g., family, friends, peers, community Risk of harm to others: low - Irritability/agitation RECOMMENDATIONS: Disposition: 1.) Continue pink slip 2.) Refer to outside psychiatric hospital once pt medically cleared d/t bed availability Management of the patient was discussed with Dr. Martinez, ED provider. documented in this encounter [facility] 09-15-2023 Emergency department Note Psych at bedside. Liztet Martinez 09/15/23 1437 [facility] 09-15-2023 Emergency department Note Pt family at bedside. Lizett Martinez 09/15/23 1359 [facility] 09-15-2023 Note NOTE: This result is for medical treatment only. Analysis performed using non-forensic procedures. [facility] 09-15-2023 Emergency department Note PT. WAS CHANGED INTO HOSPITAL GOWN,SKIN ASSESSMENT COMPLETED BY NURSING. PT WANDED AND ALL BELONGINGS INVENTORIED AND LOCKED IN CABINET BY PROTECTIVE SERVICE. Pt has 1 bag. Lizett Leni Martinez 09/15/23 1327 [facility] 09-15-2023 Physician Emergency department Note Emergency Department Encounter [facility] EMERGENCY DEPT Patient: Rosy Rawls : 1995 Date of Evaluation: 09/15/2023 ED Supervising Physician: Anshu Chinchilla MD I personally evaluated Rosy Rawls and made/approved the management plan and take responsibility for the patient management. This will serve as my Supervisory note and shared attestation. I did perform a substantive portion of the visit including all aspects of the Medical Decision Making. I wore appropriate PPE for the entirety of this encounter. In brief, Rosy Rawls is a 28 y.o. that presents to the emergency department for suicidal ideation. Per EMS she sent a detailed text about ideas at self-harm to her mother. Her mother did confirm this. She is on several psychiatric medications. She sees a psychiatrist. She has been self harming with scratching to the legs and abdomen and hitting her head on the wall. Denies hallucinations delusions. Denies any overdose or intoxication. Lives alone states she does not own a gun. Focused exam: Awake alert no acute distress anxious Head is atraumatic neck is supple Heart sounds regular no respiratory distress Scratch taveras noted to the abdomen and thighs without any laceration or cellulitis Nervous anxious depressed mood cooperative oriented x 3 Brief ED course/MDM: 28-year-old female here with suicidal thoughts. Differential depression anxiety self-harm. She was pink slipped. Will be medically cleared for psych eval and anticipate inpatient hospitalization for stabilization. Medical history impacting this visit includes depression. Social history impacting this visit includes no drug abuse. Diagnostics interpreted by me: none I personally discussed the patient's management with other clinicians: none All diagnostic, treatment, and disposition decisions were made by myself in conjunction with the Resident. I also supervised monae portions of any procedures performed by the Resident. For all further details of the patient's emergency department visit, please see their documentation. (Comment: Please note this report has been produced using speech recognition software and may contain errors related to that system including errors in grammar, punctuation, and spelling, as well as words and phrases that may be inappropriate. If there are any questions or concerns please feel free to contact the dictating provider for clarification.) Anshu Chinchilla MD Acute Care [facility] Anshu Chinchilla MD 09/15/23 1439 [employer] Work Phone: 09-15-2023 Telephone encounter Note S: Patient's father Josep spoke with [facility] nurse regarding daughter sucidal B: Onset of symptoms/concern for a few days A: Patient depressed, agitated, has made statements that she wants to harm herself. She has struck her head on wall, scratching herself with fingernails. Patient has not made suicide attempt. Patient is at parents home in [place]. Father states patient has been taking Ozempic for about one month; he is concerned the Ozempic may be worsening her symptoms. Patient has a history of depression, is treated by a Psychiatrist at [facility]. R: Advised Josep to call 911 now and have patient transported to [facility] ED.. Josep voices understanding. Nofurther needs at this time. Reason for Disposition Patient is threatening suicide now Protocols used: Suicide [id number] [employer] Your Policy Manager 09-15-2023 Miscellaneous Notes S: Patient's father Josep spoke with [facility] nurse regarding daughter sucidal B: Onset of symptoms/concern for a few days A: Patient depressed, agitated, has made statements that she wants to harm herself. She has struck her head on wall, scratching herself with fingernails. Patient has not made suicide attempt. Patient is at parents home in [place]. Father states patient has been taking Ozempic for about one month; he is concerned the Ozempic may be worsening her symptoms. Patient has a history of depression, is treated by a Psychiatrist at [facility]. R: Advised Josep to call 911 now and have patient transported to [facility] ED.. Josep voices understanding. Nofurther needs at this time. Reason for Disposition Patient is threatening suicide now Protocols used: Suicide [id number]-DS documented in this encounter [facility] 06-09-2023 Miscellaneous Notes Requested Prescriptions Signed Prescriptions Disp Refills fremanezumab (Ajovy) 225 MG/1.5ML auto-injector 1.68 mL 5 Sig: Inject 1 Pen (225 mg) under the skin every 30 (thirty) days. Authorizing Provider: JAYE BOWLNIG documented in this encounter [facility] 06-09-2023 Telephone encounter Note Requested Prescriptions Signed Prescriptions Disp Refills fremanezumab (Ajovy) 225 MG/1.5ML auto-injector 1.68 mL 5 Sig: Inject 1 Pen (225 mg) under the skin every 30 (thirty) days. Authorizing Provider: JAYE BOWLING [facility] 04-16-2023 History of Presen t illness Narrative [facility] Primary Care Physician: Anirudh Jerez MD Chief Complaint: Chief Complaint Patient presents with Follow-up Chronic migraines Main Diagnosis: Diagnosis Plan 1. Chronic migraine without aura without status migrainosus, not intractable History: given by the patient and EMR. EMR was personally reviewed prior to today's visit and included review of prior notes and intermediate communications. HPI: Ms. Rosy Rawls is a 28 y.o. female who is seen in the NEUROLOGY CLINIC of [facility] for complaint of headaches. Patient states that since June she has been experiencing headaches on the right temporal area. She states the area will swell and dick. She states the pain is started in the occipital region and will sometimes radiate to the right eye. She states she will experience neck pain as well. She states she has had migraines in the past but they had a different pattern. She states she used to have visual aura followed by pain. She states they were not as intense or frequent as now. Patient reports that sometimes she will still develop paresthesias and weakness in the right side of the face as well as the right arm. 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 She states that her Mother suffers from migraines. She has current associated symptoms of photophobia, phonophobia, nausea. She has had recent lab studies which returned normal. Patient is positive for anxiety, interstitial cystitis, and depression. Currently, patient is not taking any preventive medication. Patient is a non-smoker. She does hold a medical marijuana card and she smokes marijuana. She does not drink alcohol. The last visit was 10/22/2022 with this provider where the patient was continued on Ajovy for the prevention of migraine with good control. Headache characteristics: Description of pain: throbbing pain, bilateral in the occipital area. Duration of individual headaches: 8-36 hour(s), frequency weekly. Associated symptoms: aura, light sensitivity, nausea, and sound sensitivity . Pain relief: unable to obtain relief with OTC meds. Precipitating factors: stress. INTERVAL HISTORY: Today, the patient returns for follow up of migraine pain on current medication regimen. The patient states today migraines are well controlled on current medication regimen. The patient states she has gone from experiencing migraine pain 2-3 migraine days a week to no migraine days. The patient states she is using Ajovy every 5-6 months which is working well for her. The patient states no need for abortive medication. She may use one Nurtec every 6 months. The patient denies any side effects from medications and no new neurological deficits. Current Headache Meds: Ajovy Nurtec Side effects: No known side effects Past Medical History: Diagnosis Date Abnormal Pap smear of cervix 2018 Anxiety Cystitis, interstitial Depression Past Surgical History: Procedure Laterality Date COLONOSCOPY COLPOSCOPY CYSTOSCOPY NERVE BLOCK (HISTORICAL) UPPER GASTROINTESTINAL ENDOSCOPY Allergies Allergen Reactions Amoxicillin Hives Egg White (Egg Protein) Hives Erythromycin Hives Other reaction(s): HIVES Penicillins Hives Other reaction(s): HIVES Sulfamethoxazole-Trimethoprim Hives Other reaction(s): hives @HOMEMEDS@ Current Outpatient Medications Medication Sig Dispense Refill adapalene (Differin) 0.1 % gel Apply topically Nightly. Clascoterone (Winlevi) 1 % cream Apply topically. clindamycin (Cleocin T) 1 % lotion Apply topically 2 times daily. DULoxetine (Cymbalta) [address] capsule Take 40 mg by mouth in the morning and 40 mg before bedtime. glycopyrrolate (Robinul) 1 MG tablet hydrOXYzine pamoate (Vistaril) 50 MG capsule TAKE 2 CAPSULES BY MOUTH 4 TIMES DAILY traZODone (Desyrel) 50 MG tablet TAKE TWO TABLETS BY MOUTH EVERY DAY AT BEDTIME No current facility-administered medications for this visit. No family history on file. Social Connections: Not on file REVIEW OF SYSTEMS: Review of Systems Constitutional: Positive for appetite change. Negative for activity change and chills. HENT: Negative for ear pain, facial swelling, mouth sores, rhinorrhea, sinus pain and tinnitus. Eyes: Negative for photophobia, pain and visual disturbance. Respiratory: Negative for cough and chest tightness. Gastrointestinal: Negative for abdominal pain, nausea and vomiting. Endocrine: Negative for cold intolerance and heat intolerance. Genitourinary: Negative for difficulty urinating. Allergic/Immunologic: Negative for food allergies. Neurological: Negative for dizziness, tremors, syncope, speech difficulty, weakness and numbness. Hematological: Bruises/bleeds easily. Psychiatric/Behavioral: Negative for confusion, decreased concentration and hallucinations. The patient is not nervous/anxious. All other systems reviewed and are negative. PHYSICAL EXAM: BP 128/85 (BP Location: Left arm) Pulse 78 Temp 36.2 C (97.2 F) Physical Exam Vitals and nursing note reviewed. Constitutional: Appearance: Normal appearance. She is normal weight. HENT: Head: Normocephalic. Nose: Nose normal. Eyes: Extraocular Movements: Extraocular movements intact. Conjunctiva/sclera: Conjunctivae normal. Pupils: Pupils are equal, round, and reactive to light. Pulmonary: Effort: Pulmonary effort is normal. Musculoskeletal: General: Normal range of motion. Cervical back: Normal range of motion. Skin: General: Skin is warm and dry. Neurological: General: No focal deficit present. Mental Status: She is alert and oriented to person, place, and time. Mental status is at baseline. Psychiatric: Mood and Affect: Mood normal. Behavior: Behavior normal. Thought Content: Thought content normal. Judgment: Judgment normal. Neuro: Alert and oriented x4. Language: fluent and prosodic. Content and vocabulary reasonable for age and education level. Attention and Concentration intact Fund of knowledge: Knowledge of current events demonstrated. CN II: PERRLA CN III, IV, : EOM intact, no end-gaze nystagmus CN VII: smiling and tight eye closure symmetric CN VIII: grossly intact Gait: routine gait steady ASSESSMENT: 28 y.o. female with past medical history as above who presents for follow up evaluation of headaches, now well controlled on current medication regimen. IMPRESSION: Diagnosis Plan 1. Chronic migraine without aura without status migrainosus, not intractable PLAN: 1. Patient will continue Ajovy 225 mg every 5-6 months. 2. Return to neurology clinic in 6 months, sooner if needed. I hope that all of your questions and concerns were addressed during today's visit. Please don't hesitate to call the Department of Neurology at [phone] for any further concerns. Sincerely, JACE Lopez CNP The above diagnosis and management plan were discussed at length with the patient who voiced understanding and agreed. Electronically signed by: JACE Lopez CNP 04/16/2023 1:38 PM documented in this encounter [facility] 10-22-2022 History of Presen t illness Narrative [facility] Primary Care Physician: Anirudh Jerez MD Chief Complaint: Chief Complaint Patient presents with Follow-up Migraine Main Diagnosis: Diagnosis Plan 1. Chronic migraine without aura without status migrainosus, not intractable History: given by the patient and EMR. EMR was personally reviewed prior to today's visit and included review of prior notes and intermediate communications. HPI: Ms. Rosy Rawls is a 27 y.o. female who is seen in the NEUROLOGY CLINIC of [facility] for complaint of headaches. Patient states that since June she has been experiencing headaches on the right temporal area. She states the area will swell and dick. She states the pain is started in the occipital region and will sometimes radiate to the right eye. She states she will experience neck pain as well. She states she has had migraines in the past but they had a different pattern. She states she used to have visual aura followed by pain. She states they were not as intense or frequent as now. Patient reports that sometimes she will still develop paresthesias and weakness in the right side of the face as well as the right arm. 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 She states that her Mother suffers from migraines. She has current associated symptoms of photophobia, phonophobia, nausea. She has had recent lab studies which returned normal. Patient is positive for anxiety, interstitial cystitis, and depression. Currently, patient is not taking any preventive medication. Patient is a non-smoker. She does hold a medical marijuana card and she smokes marijuana. She does not drink alcohol. The last visit was 01/30/[address] Smith where the patient was continued on Ajovy for the prevention of migraine with good control. Headache characteristics: Description of pain: throbbing pain, bilateral in the occipital area. Duration of individual headaches: 8-36 hour(s), frequency weekly. Associated symptoms: aura, light sensitivity, nausea, and sound sensitivity . Pain relief: unable to obtain relief with OTC meds. Precipitating factors: stress. INTERVAL HISTORY: Today, the patient returns for follow up of migraine pain on current medication regimen. The patient states today migraines are well controlled on current medication regimen. The patient states she has gone from experiencing migraine pain 2-3 migraine days a week to no migraine days. The patient states she is using Ajovy every 4-5 months which is working well for her. The patient states no need for abortive medication. The patient denies any side effects from medications and no new neurological deficits. Current Headache Meds: Ajovy Side effects: No known side effects Past Medical History: Diagnosis Date Abnormal Pap smear of cervix 2018 Anxiety Cystitis, interstitial Depression Past Surgical History: Procedure Laterality Date COLONOSCOPY COLPOSCOPY CYSTOSCOPY NERVE BLOCK (HISTORICAL) UPPER GASTROINTESTINAL ENDOSCOPY Allergies Allergen Reactions Amoxicillin Hives Egg White (Egg Protein) Hives Erythromycin Hives Other reaction(s): HIVES Penicillins Hives Other reaction(s): HIVES Sulfamethoxazole-Trimethoprim Hives Other reaction(s): hives @HOMEMEDS@ Current Outpatient Medications Medication Sig Dispense Refill adapalene (Differin) 0.1 % gel Apply topically Nightly. ARIPiprazole (Abilify) 2 MG tablet Take 2 mg by mouth. Ashlyna 0.15-0.03 &0.01 MG tablet tablet TAKE 1 TABLET BY MOUTH ONCE DAILY CONTINUOUSLY Clascoterone (Winlevi) 1 % cream Apply topically. clindamycin (Cleocin T) 1 % lotion Apply topically 2 times daily. DULoxetine (Cymbalta) [address] capsule Take 40 mg by mouth in the morning and 40 mg before bedtime. fremanezumab (Ajovy) 225 MG/1.5ML auto-injector glycopyrrolate (Robinul) 1 MG tablet hydrOXYzine pamoate (Vistaril) 50 MG capsule TAKE 2 CAPSULES BY MOUTH 4 TIMES DAILY phentermine (Adipex-P) 37.5 MG tablet Take 37.5 mg by mouth every morning (before breakfast). traZODone (Desyrel) 50 MG tablet TAKE TWO TABLETS BY MOUTH EVERY DAY AT BEDTIME busPIRone (Buspar) 5 MG tablet Take 5 mg by mouth in the morning and 5 mg before bedtime. COMMODITIES TRADER Thyroid 15 MG tablet TAKE 3 TABLETS BY MOUTH ONCE DAILY IN THE MORNING ON AN EMPTY STOMACH No current facility-administered medications for this visit. No family history on file. Social Connections: Not on file REVIEW OF SYSTEMS: Review of Systems Constitutional: Positive for appetite change. Negative for activity change and chills. HENT: Negative for ear pain, facial swelling, mouth sores, rhinorrhea, sinus pain and tinnitus. Eyes: Negative for photophobia, pain and visual disturbance. Respiratory: Negative for cough and chest tightness. Gastrointestinal: Negative for abdominal pain, nausea and vomiting. Endocrine: Negative for cold intolerance and heat intolerance. Genitourinary: Negative for difficulty urinating. Allergic/Immunologic: Negative for food allergies. Neurological: Negative for dizziness, tremors, syncope, speech difficulty, weakness and numbness. Hematological: Bruises/bleeds easily. Psychiatric/Behavioral: Negative for confusion, decreased concentration and hallucinations. The patient is not nervous/anxious. All other systems reviewed and are negative. PHYSICAL EXAM: BP (!) 143/73 (BP Location: Left arm) Pulse 71 Temp 36.6 C (97.9 F) (Infrared) Ht 5' 9 (1.753 m) Wt 222 lb (101 kg) BMI 32.78 kg/m Physical Exam Vitals and nursing note reviewed. Constitutional: Appearance: Normal appearance. She is normal weight. HENT: Head: Normocephalic. Nose: Nose normal. Eyes: Extraocular Movements: Extraocular movements intact. Conjunctiva/sclera: Conjunctivae normal. Pupils: Pupils are equal, round, and reactive to light. Pulmonary: Effort: Pulmonary effort is normal. Musculoskeletal: General: Normal range of motion. Cervical back: Normal range of motion. Skin: General: Skin is warm and dry. Neurological: General: No focal deficit present. Mental Status: She is alert and oriented to person, place, and time. Mental status is at baseline. Psychiatric: Mood and Affect: Mood normal. Behavior: Behavior normal. Thought Content: Thought content normal. Judgment: Judgment normal. Neuro: Alert and oriented x4. Language: fluent and prosodic. Content and vocabulary reasonable for age and education level. Attention and Concentration intact Fund of knowledge: Knowledge of current events demonstrated. CN II: PERRLA CN III, IV, : EOM intact, no end-gaze nystagmus CN VII: smiling and tight eye closure symmetric CN VIII: grossly intact Gait: routine gait steady ASSESSMENT: 27 y.o. female with past medical history as above who presents for follow up evaluation of headaches, now well controlled on current medication regimen. IMPRESSION: Diagnosis Plan 1. Chronic migraine without aura without status migrainosus, not intractable PLAN: 1. Patient will continue Ajovy 225 mg every 3-4 months. 2. Return to neurology clinic in 6 months, sooner if needed. I hope that all of your questions and concerns were addressed during today's visit. Please don't hesitate to call the Department of Neurology at [phone] for any further concerns. Sincerely, Jaye Bowling APRN - SKIP The above diagnosis and management plan were discussed at length with the patient who voiced understanding and agreed. Electronically signed by: JACE Lopez CNP 10/22/2022 12:16 PM documented in this encounter [facility] 09-19-2022 Telephone encounter Note Please schedule patient for follow up for continued refills. [facility] Your Policy Manager Work Phone: 09-19-2022 Miscellaneous Notes Please schedule patient for follow up for continued refills. Ajovy requires prior authorization. [facility] has submitted information for the renewal but the insurance is requiring updated clinical notes more recent that 2021. documented in this encounter [facility] 09-19-2022 Telephone encounter Note Ajovy requires prior authorization. [facility] has submitted information for the renewal but the insurance is requiring updated clinical notes more recent that 2021. [facility] 08-15-2022 Note HNO ID: [id number] Author: RT Yuki(R) Service: ? Author Type: Physical Education Professor Type: Progress Notes Filed: 08/15/2022 9:37 AM Note Text: Radiology Service Progress Note PATIENT NAME: Rosy Rawls DATE OF SERVICE: August 15, 2022 TIME: 9:27 AM PATIENT IDENTITY VERIFICATION COMPLETED USING TWO (2) IDENTIFIERS: Name and Date of confirmed by patient verbally. FALL SCREENING: Has the patient had 2 falls in the last year or 1 fall with injury or currently using an Ambulatory Assistive Device (Walker, Cane, Wheelchair, Crutches, etc.)? No PATIENT GENDER DATA: Female. status: : No status: NO. PATIENT RELEVANT IMPLANT DATA REVIEWED: Yes RADIOLOGY DEPARTMENT: General X-ray: Exam(s) Completed: Lower Extremity X-Ray(s): Ankle, Left PERIPHERAL IV DATA: Not applicable SIGNED BY: RT Yuki(R) August 15, 2022 9:27 AM [facility] 08-15-2022 Note HNO ID: [id number] Author: Santi Colunga APRN.RANCH HAND SUPERVISOR Service: ? Author Type: Nurse Practitioner Type: Progress Notes Filed: 08/15/2022 10:14 AM Note Text: Subjective HPI Nontoxic-appearing female presents urgent care chief complaint left ankle injury. Duration of symptoms 1 day. Associated symptoms left ankle pain. Patient states she was playing volleyball yesterday when she inverted her ankle. Was able to finish the game. Later on that night she noticed some swelling and bruising to the lateral malleolus. Presents today for evaluation. Has been using ice this is helped. She is having a hard time bearing weight. No numbness no tingling. No decrease sensation. Denies fractures or surgeries to this ankle in the past. Denies chance of . Past medical history prescription medication use allergies reviewed. .Patient presents with: Pain: Pt reported (LT) ankle injury during sports activity, x1 day. PAST MEDICAL HISTORY Diagnosis Date Interstitial cystitis History reviewed. No pertinent surgical history. ALLERGIES Amoxicillin, Bactrim [Sulfamethoxazole-Trimethoprim], Eggs [Egg], Epinephrine, Erythromycin, and Penicillins MEDICATIONS ARIPiprazole (ABILIFY) 2 mg tablet Take 2 mg by mouth daily at bedtime. Clindamycin Phosphate (CLEOCIN T) 1 % lotion hydroxyzine pamoate (VISTARIL ORAL) Take 100 mg by mouth. Norethindrone Acet-Ethinyl Est 1-20 mg-mcg per tablet Take 1 tablet by mouth once daily. duloxetine HCl (DULOXETINE ORAL) Take by mouth. traZODone (DESYREL) 100 mg tablet Take 100 mg by mouth daily at bedtime. fremanezumab-vfrm subcutaneus auto-injector 225 mg/1.5 mL (AJOVY) oxybutynin XL (DITROPAN XL) 5 mg 24 hr tablet Take 1 tablet by mouth once daily. spironolactone (ALDACTONE) 25 mg tablet Take 25 mg by mouth twice daily. (Patient not taking: Reported on 08/15/2022) fluconazole (DIFLUCAN) 150 mg tablet Take 1 tablet by mouth once each week. FAMILY HISTORY Problem Relation Age of Onset Colon Cancer Maternal Grandmother 50 other (brain cancer) Paternal Aunt Social History Tobacco Use Smoking status: Never Smokeless tobacco: Never Substance Use Topics Alcohol use: No Drug use: Yes Comment: Medical car for marijuana BP 130/78 Pulse 117 Temp 36.8 ?C (98.2 ?F) (Tympanic) Resp 18 LMP (LMP Unknown) SpO2 99% Review of Systems Constitutional: Negative for chills, fever and malaise/fatigue. HENT: Negative for congestion, ear discharge, ear pain, sinus pain and sore throat. Eyes: Negative for blurred vision, pain, discharge and redness. Respiratory: Negative for cough, hemoptysis, sputum production, shortness of breath, wheezing and stridor. Cardiovascular: Negative for chest pain. Gastrointestinal: Negative for abdominal pain, diarrhea, nausea and vomiting. Musculoskeletal: Positive for falls and joint pain. Negative for back pain, myalgias and neck pain. Skin: Negative for itching and rash. Neurological: Negative for dizziness and headaches. Objective Physical Exam Constitutional: General: She is not in acute distress. Appearance: She is not diaphoretic. HENT: Head: Normocephalic. Eyes: Conjunctiva/sclera: Conjunctivae normal. Pupils: Pupils are equal, round, and reactive to light. Cardiovascular: Rate and Rhythm: Normal rate and regular rhythm. Heart sounds: Normal heart sounds. Pulmonary: Effort: Pulmonary effort is normal. No tachypnea, accessory muscle usage or respiratory distress. Breath sounds: Normal breath sounds. No stridor. No wheezing, rhonchi or rales. Musculoskeletal: Cervical back: Normal range of motion. Left knee: No bony tenderness. No tenderness. Left lower leg: No swelling, tenderness or bony tenderness. Right ankle: Normal. Left ankle: Ecchymosis present. No swelling. Tenderness present over the lateral malleolus. Decreased range of motion. Left Achilles Tendon: No tenderness. Left foot: Normal range of motion and normal capillary refill. No swelling, deformity, tenderness or bony tenderness. Normal pulse. Comments: Pain with palpation to lateral malleolus. No breaks in skin. Some edema. Some erythema. Skin: General: Skin is warm and dry. Neurological: Mental Status: She is alert and oriented to person, place, and time. ASSESSMENT/PLAN: 1. Injury of left ankle, initial encounter - ICD9: 959.7, ICD10: S99.912A - XR ANKLE GENERAL 3V AP/LAT/OBL LEFT IMPRESSION IMPRESSION: Soft tissue swelling along the lateral malleolus. No fractures noted on x-ray. Treat as ankle sprain. Follow-up PCP symptoms not improving 7 to 10 days. Patient was educated on supportive therapies. Patient will follow up with primary care provider as needed. Patient was instructed to immediately proceed to emergency room for any new, worsening, or symptoms lasting longer than anticipated. The patient's clinical presentation is otherwise unremarkable at this time. Based on exam and clinica (more content not included)... [facility] 07-09-2022 Telephone encounter Note Spoke to patient and advised that we need to have a signed release in order to send her medical records to her new provider office. Patient stated understanding and will stop by the office to fill out a form for us to send to [facility] in order to provide these records. [facility] 07-09-2022 Miscellaneous Notes Spoke to patient and advised that we need to have a signed release in order to send her medical records to her new provider office. Patient stated understanding and will stop by the office to fill out a form for us to send to [facility] in order to provide these records. Name of caller: Rosy Rawls Contact phone number: [phone] Relationship to Patient: patient Provider: Practice: Neurology Chief Complaint/Reason for Call: Rosy states that she is going to a alternative doctor. Rosy states that The new Office that she is going to to take over her care is requesting proof with medical documentation on her migraines. Rosy is requesting that her medical records be faxed to [phone] or emailed to [email or web address]. Rosy is requesting to be advised when records have been sent.Please be advised. Best time of day caller can be reached: Any Patient advised that office/PCP has 24-48 business hours to return their call: Yes documented in this encounter [facility] 07-08-2022 Telephone encounter Note Name of caller: Rosy Rawls Contact phone number: [phone] Relationship to Patient: patient Provider: Practice: Neurology Chief Complaint/Reason for Call: Rosy states that she is going to a alternative doctor. Rosy states that The new Office that she is going to to take over her care is requesting proof with medical documentation on her migraines. Rosy is requesting that her medical records be faxed to [phone] or emailed to [email or web address]. Rosy is requesting to be advised when records have been sent.Please be advised. Best time of day caller can be reached: Any Patient advised that office/PCP has 24-48 business hours to return their call: Yes [facility] 03-10-2022 Telephone encounter Note Spoke to patient who stated she has already received this medication through the mail with [facility] 03-10-2022 Miscellaneous Notes Spoke to patient who stated she has already received this medication through the mail with [facility] Ajovy and Nurtec have been approved through 08/28/2022. Spoke to patient and advised that prescriptions were sent to [facility] to obtain approval. Advised patient that either [facility] can dispense the medication or the prescriptions can be sent to her local pharmacy once approval is obtained. Patient stated understanding. Name of caller: Rosy Contact phone number: [phone] Relationship to Patient: patient Provider: Dr. smith Practice: Neuro Chief Complaint/Reason for Call: Patient states that the medication Rimegepant Sulfate (Nurtec) 75 MG tablet dispersible [[id number]] fremanezumab (Ajovy) 225 MG/1.5ML auto-injector [[id number]] Was sent to the incorrect pharmacy. They need to be sent to the [facility] in [place] [address] Best time of day caller can be reached: any Patient advised that office/PCP has 24-48 business hours to return their call: No documented in this encounter [facility] 03-10-2022 Telephone encounter Note Ajovy and Nurtec have been approved through 08/28/2022. [facility] 02-28-2022 Note HNO ID: [id number] Author: Miley Thompson RDMS Service: ? Author Type: Physical Education Professor Type: Progress Notes Filed: 02/28/2022 10:28 AM Note Text: Radiology Service Progress Note PATIENT NAME: Rosy Rawls DATE OF SERVICE: February 28, 2022 TIME: 10:28 AM PATIENT IDENTITY VERIFICATION COMPLETED USING TWO (2) IDENTIFIERS: Name and Date of confirmed by patient verbally. FALL SCREENING: Has the patient had 2 falls in the last year or 1 fall with injury or currently using an Ambulatory Assistive Device (Walker, Cane, Wheelchair, Crutches, etc.)? No PATIENT GENDER DATA: Female. status: : No status: NO. PATIENT RELEVANT IMPLANT DATA REVIEWED: Not Applicable RADIOLOGY DEPARTMENT: Ultrasound PERIPHERAL IV DATA: Not applicable SIGNED BY: Miley Thompson RDMS February 28, 2022 10:28 AM [facility] 02-28-2022 History of Presen t illness Narrative Radiology Service Progress Note PATIENT NAME: Rosy Rawls DATE OF SERVICE: February 28, 2022 TIME: 10:28 AM PATIENT IDENTITY VERIFICATION COMPLETED USING TWO (2) IDENTIFIERS: Name and Date of confirmed by patient verbally. FALL SCREENING: Has the patient had 2 falls in the last year or 1 fall with injury or currently using an Ambulatory Assistive Device (Walker, Cane, Wheelchair, Crutches, etc.)? No PATIENT GENDER DATA: Female. status: : No status: NO. PATIENT RELEVANT IMPLANT DATA REVIEWED: Not Applicable RADIOLOGY DEPARTMENT: Ultrasound PERIPHERAL IV DATA: Not applicable SIGNED BY: Miley Thompson RDMS February 28, 2022 10:28 AM documented in this encounter [facility] 02-25-2022 Telephone encounter Note Spoke to patient and advised that prescriptions were sent to [facility] to obtain approval. Advised patient that either [facility] can dispense the medication or the prescriptions can be sent to her local pharmacy once approval is obtained. Patient stated understanding. [facility] 02-25-2022 Telephone encounter Note Name of caller: Rosy Contact phone number: [phone] Relationship to Patient: patient Provider: Dr. smith Practice: Neuro Chief Complaint/Reason for Call: Patient states that the medication Rimegepant Sulfate (Nurtec) 75 MG tablet dispersible [[id number]] fremanezumab (Ajovy) 225 MG/1.5ML auto-injector [[id number]] Was sent to the incorrect pharmacy. They need to be sent to the [facility] in [place] [phone] Best time of day caller can be reached: any Patient advised that office/PCP has 24-48 business hours to return their call: No [facility] 10-03-2022 Note ORIGINAL HISTORY: Migraine COMPARISON: No TECHNIQUE: 1. Sagittal T1-weighted images. 2. Axial T2-weighted and T2*-weighted images. 3. Axial FLAIR images. 4. Axial diffusion-weighted images with ADC map. FINDINGS: The ventricles and sulci are normal in size and configuration. There are no abnormal intra or extra-axial fluid collections. There are mild scattered punctate T2 hyperintensities in the cerebral white matter, mainly in the left frontal lobe. Ospina-white matter differentiation is intact. There is no abnormal restriction of diffusion. The orbital contents are normal in appearance. The paranasal sinuses are clear. IMPRESSION: Nonspecific white matter T2 hyperintensities in the left frontal lobe. These may represent developmental lesions of no significance, but these are occasionally seen in the presence of migraine headaches. Interpreted by: Shilo Locke MD Preliminary Report By: Shilo Locke MD Electronically signed By Shilo Locke MD Dictated Date: 12/23/2021 3:17:13 PM Prelim Date: 12/23/2021 3:19:16 PM Sign Date: 12/23/2021 3:19:16 PM Ordering Provider: [facility] 12-23-2021 Note ORIGINAL HISTORY: Migraine COMPARISON: No TECHNIQUE: 1. Sagittal T1-weighted images. 2. Axial T2-weighted and T2*-weighted images. 3. Axial FLAIR images. 4. Axial diffusion-weighted images with ADC map. FINDINGS: The ventricles and sulci are normal in size and configuration. There are no abnormal intra or extra-axial fluid collections. There are mild scattered punctate T2 hyperintensities in the cerebral white matter, mainly in the left frontal lobe. Ospina-white matter differentiation is intact. There is no abnormal restriction of diffusion. The orbital contents are normal in appearance. The paranasal sinuses are clear. IMPRESSION: Nonspecific white matter T2 hyperintensities in the left frontal lobe. These may represent developmental lesions of no significance, but these are occasionally seen in the presence of migraine headaches. Interpreted by: Shilo Locke MD Preliminary Report By: Shilo Locke MD Electronically signed By Shilo Locke MD Dictated Date: 12/23/2021 3:17:13 PM Prelim Date: 12/23/2021 3:19:16 PM Sign Date: 12/23/2021 3:19:16 PM Ordering Provider: [facility] Evaluation + Plan note Future Appointments [place] Evaluation note Diagnosis Chronic migraine without aura without status migrainosus, not intractable- Primary documented in this encounter [facility]No assessment [facility] Work Phone: [facility] note* Diagnosis Chronic migraine without aura without status migrainosus, not intractable- Primary documented in this encounter [facility] note* Diagnosis Suicidal ideations- Primary documented in this encounter [facility] note* Diagnosis Injury of left ankle, initial encounter documented in this encounter [facility] note* Diagnosis Intractable chronic migraine without aura and without status migrainosus- Primary documented in this encounter [facility] note* Diagnosis Intractable chronic migraine without aura and without status migrainosus- Primary documented in this encounter [facility] note* Diagnosis Multiple sclerosis (HCC) Multiple sclerosis documented in this encounter [facility] note* Diagnosis Multiple sclerosis (HCC)- Primary Multiple sclerosis Multiple sclerosis (HCC) Multiple sclerosis documented in this encounter [facility] note* Diagnosis Intractable chronic migraine without aura and without status migrainosus- Primary documented in this encounter [facility] note* Diagnosis Intractable chronic migraine without aura and without status migrainosus- Primary documented in this encounter [facility] note* Diagnosis Chronic migraine without aura without status migrainosus, not intractable- Primary Intractable chronic migraine without aura and without status migrainosus documented in this encounter [facility] note* Diagnosis Chronic migraine without aura without status migrainosus, not intractable- Primary Intractable chronic migraine without aura and without status migrainosus [facility] Narr[facility] No data available for this section [facility] Discharge instructions No data available for this section [facility] Discharge instructions Additional Instructions I would recommend heat and gentle stretching If you have access to a TENS unit please utilize it Motrin 600 mg every 6 hours as needed for [facility]WPark[facility] Work Phone: Hospital Discharge instructions* Attachments The following attachments cannot be sent through Care Everywhere. * Spinal Headache (Vietnamese) * Lumbar Puncture (Spinal Tap) (Vietnamese) * Lumbar Puncture Discharge Instructions (Vietnamese) documented in this [facility] for referral (narrative)* Diagnostic Procedure Only (Urgent) - Closed Specialty Diagnoses / Procedures Referred By Contac t Referred To Contact XR IMAGING Diagnoses Injury of left ankle, initial encounter Procedures XR ANKLE GENERAL 3V AP/LAT/OBL LEFT RADEX ANKLE COMPLETE MINIMUM 3 VIEWS Santi Colunga APRN.SKIP [address] [place] [address] [place] [address] Referral ID Status Reason Start Date Expiration Date V isits Requested Visits Authorized [id number] Closed Auto-Generate d Referral 08/15/2022 09/14/2023 1 1 [facility] for visit Narrative* Diagnostic Procedure Only (Urgent) - Closed Specialty Diagnoses / Procedures Referred By Contac t Referred To Contact XR IMAGING Diagnoses Injury of left ankle, initial encounter Procedures XR ANKLE GENERAL 3V AP/LAT/OBL LEFT RADEX ANKLE COMPLETE MINIMUM 3 VIEWS Santi Colunga APRN.SKIP [address] [place] [address] [place] [address] Referral ID Status Reason Start Date Expiration Date V isits Requested Visits Authorized [id number] Closed Auto-Generate d Referral 08/15/2022 09/14/2023 1 1 [facility] for visit Narrative* Imaging (Routine) - Closed Specialty Diagnoses / Procedures Referred By Contac t Referred To Contact Radiology Diagnoses Multiple sclerosis (HCC) Procedures IR lumbar puncture Jaye Bowling, JACE - [employer] SUPER[employer]OR [address] [place] [address] Phone: tel: fax: Referral ID Status Reason Start Date Expiration Date Visits Re quested Visits Authorized [id number] Closed 06/17/2024 06/17/2025 1 1 [facility] Summary Purpose Family History No Family History Records FoundNo Family History Records FoundNo Family History Records FoundNo Family History Records FoundNo Family History Records FoundNo Family History Records Found Advance Directives No Advanced Directives Records Found Advance Directive Response Recorded Date/ Time Living Will No January 14 12:17am Power of Laboratory Sampler No January 14, 2023 12:17am Advance Directive Response Recorded Date/ Time Living Will No January 13 11:17pm Power of Laboratory Sampler No January 13, 2023 11:17pm Chief Complaint and Reason for Visit Chief Complaint RIB PAIN Additional Source Comments INFORMATION SOURCE (unrecogn ized section and content) DATE CREATED AUTHOR 09/15/2017 [facility] DATE CREATED AUTHOR AUTHOR'S ORGANIZ ATION 09/16/2017 [facility] DATE CREATED AUTHOR AUTHOR'S ORGANIZ ATION 01/16/2022 [facility] DATE CREATED AUTHOR AUTHOR'S ORGANIZ ATION 01/29/2023 [facility] DATE CREATED AUTHOR AUTHOR'S ORGANIZ ATION 10/14/2024 [facility] DATE CREATED AUTHOR AUTHOR'S ORGANIZ ATION [facility] Care Team (unrecognized sect ion and content) Care Team Personnel Name: EDUARD COPPOLA DO Member Role: Primary Care Physician Address: Address: [facility]/[address] [address]- Care Team Related Persons Name: AUTUMN STARK Address: Home [address] [place] [id number] [place] Name: AUTUMN STARK Address: Home [address] [place] [id number] [place] Name: AUTUMN STARK Name: AUTUMN STARK Address: Home [address] [place] [phone] [place] Reason for Visit (unrecogniz ed section and content) Reason Onset Date Comments Forms/questionnaires 07/08/2022 Reason Onset Date Comments Prior Authorization 09/19/2022 Reason Onset Date Comments Medication Problem 02/25/2022 Reason Comments Follow-up Migraine Reason Comments Radiology US Reason Comments Follow-up Chronic migraines Reason Comments Med Refill Reason Onset Date Comments Suicidal 09/15/2023 Reason Comments Suicidal Per EMS, pt sent a detailed text about self harm. Pt stated suicidal but wouldn't actually carry out a plan. Pt told this nurse she has a plan but I dont think I could do it Reason Onset Date Comments Other 10/20/2023 Unable to reach pt for Tg Reason Onset Date Comments Med Management 12/08/2023 Reason Onset Date Comments Med Management 01/11/2024 Reason Onset Date Comments Prior Authorization 02/15/2024 Reason Comments Follow-up Migraine Worsening over last 2 weeks Reason Onset Date Comments Medication Problem 04/14/2024 Reason Comments Follow-up Intractable chronic migraine Reason Onset Date Comments Other 06/17/2024 MRI results Reason Onset Date Comments Depression 06/17/2024 Reason Comments Migraine Same DHE is going at the end of stop taking Qulipta is it not helping Stopped taking propranolol In a lot of pain today She said she noticed when her sugar drops her migraine is worse Reason Onset Date Comments Appointment Request 09/07/2024 Reason Comments Procedure Headache infusion Specialty Diagnoses / Procedures Referred By Contopal t Referred To Contact Diagnoses Chronic migraine without aura without status migrainosus, not intractable Intractable chronic migraine without aura and without status migrainosus Jaye Bowling APRN - [employer] SUPER[employer]OR [address] [place] [address] Phone: tel: fax: Jaye Bowling APRN - [employer] SUPER[employer] [address] [place] [address] Phone: tel: fax: Referral ID Status Reason Start Date Expiration Date V isits Requested Visits Authorized [id number] Pending Review 10/18/2024 10/13/2025 1 1 Care Teams (unrecognized sec tion and content) Promotions Intern Relationship Specialty Start Date End Date Eduard Coppola DO [address] [phone] PCP - General 11/20/15 Promotions Intern Relationship Specialty Start Date End Date Eduard Coppola DO [address] [phone] PCP - General 11/20/15 Promotions Intern Relationship Specialty Start Date End Date Eduard Coppola DO [address] [phone] PCP - General 11/20/15 Promotions Intern Relationship Specialty Start Date End Date Eduard Coppola DO [address] [phone] PCP - General 11/20/15 Promotions Intern Relationship Specialty Start Date End Date Anirudh Jerez MD [address] [place] [address] [address] [place] [address] PCP - General Family Medicine 10/22/22 Team Status: Active Member Role Status Dates Anirudh Jerez MD Primary Care Provider Active Team Status: Inactive Member Role Status Dates Dr. Jonathan Ernst DO Emergency Provider Active Anirudh Jerez MD Primary Care Provider Active Promotions Intern Relationship Specialty Start Date End Date Eduard Coppola DO [address] [id number] PCP - General Family Medicine 10/15/18 Team Status: Inactive Member Role Status Dates Anirudh Jerez MD Primary Care Provide r, Attending Provider, Referring Provider Active Team Status: Inactive Member Role Status Dates Dr. Jonathan Ernst DO Attending Provider, Emergency P rovider Active Anirudh Jerez MD Primary Care Provider Active Promotions Intern Relationship Specialty Start Date End Date Anirudh Jerez MD [address] [place], [place] [phone] PCP - General Family Medicine 10/22/22 Promotions Intern Relationship Specialty Start Date End Date Anirudh Jerez MD [address] [place], [place] [phone] PCP - General Family Medicine 10/22/22 Promotions Intern Relationship Specialty Start Date End Date Anirudh Jerez MD [address] [place] [address] [address] [place] [address] PCP - General Family Medicine 10/22/22 Promotions Intern Relationship Specialty Start Date End Date Anirudh Jerez MD [address] [place] [address] [address] [place], [place] [address] PCP - General Family Medicine 10/22/22 Promotions Intern Relationship Specialty Start Date End Date Eduard Coppola DO [address] [address] PCP - General Family Medicine 10/15/18 Promotions Intern Relationship Specialty Start Date End Date Anirudh Jerez MD [address] [place] [address] [address] [place] [address] PCP - General Family Medicine 10/22/22 Promotions Intern Relationship Specialty Start Date End Date Anirudh Jerez MD [address] [place] [address] [address] [place], [place] [id number] PCP - General Family Medicine 10/22/22 Promotions Intern Relationship Specialty Start Date End Date Anirudh Jerez MD [address] [place] [address] [address] [place] [address] PCP - General Family Medicine 10/22/22 Promotions Intern Relationship Specialty Start Date End Date Anirudh Jerez MD [address] [place] [address] [address] [place] [address] PCP - General Family Medicine 10/22/22 Promotions Intern Relationship Specialty Start Date End Date Anirudh Jerez MD [address] [place] [address] PCP - General Family Medicine 10/22/22 Promotions Intern Relationship Specialty Start Date End Date Anirudh Jerez MD [address] [place] [address] PCP - General Family Medicine 10/22/22 Promotions Intern Relationship Specialty Start Date End Date Anirudh Jerez MD [address] [place] [address] PCP - General Family Medicine 10/22/22 Promotions Intern Relationship Specialty Start Date End Date Anirudh Jerez MD [address] [place] [address] [address] [place] [address] PCP - General Family Medicine 10/22/22 Promotions Intern Relationship Specialty Start Date End Date Anirudh Jerez MD [address] [place] [address] PCP - General Family Medicine 10/22/22 Promotions Intern Relationship Specialty Start Date End Date Anirudh Jerez MD [address] [place] [address] PCP - General Family Medicine 10/22/22 Promotions Intern Relationship Specialty Start Date End Date Anirudh Jerez MD [address] [place] [address] PCP - General Family Medicine 10/22/22 Promotions Intern Relationship Specialty Start Date End Date Anirudh Jerez MD [address] [place] [address] PCP - General Family Medicine 10/22/22 Promotions Intern Relationship Specialty Start Date End Date Anirudh Jerez MD [address] [place], [place] [address] PCP - General Family Medicine 10/22/22 Goals (unrecognized section and content) Goals may be documented in a n alternate section Source Comments (unrecognize d section and content) In the event this informatio n is protected by the Federal Confidentiality of Alcohol and Drug Abuse Patient Records regulations: The Federal rules restrict any use of the information to criminally investigate or prosecute any alcohol or drug abuse patient.[facility] the event this information is protected by the Federal Confidentiality of Alcohol and Drug Abuse Patient Records regulations: The Federal rules restrict any use of the information to criminally investigate or prosecute any alcohol or drug abuse patient.[facility] PRN Active and Recently Administ ered Medications (unrecognized section and content) Medication Order 09/13/2023 09/14/2023 09/15/2023 hydrOXYzine pamoate (Vistaril) capsule 50 mg 50 mg, Oral, Every 6 hours PRN, anxiety, Starting on Thu09/15/23 at 1630 1700 (Given - Provid er: Sirena Ayers RN) traZODone (Desyrel) tablet 50 mg 50 mg, Oral, Nightly PRN, sleep, Starting on Thu09/15/23 at 1630 FOR RECORDS PERTAINING TO PATIENTS WHO ARE OR HAVE BEEN ENROLLED IN A CHEMICAL DEPENDENCY/SUBSTANCEABUSE PROGRAM, SOME INFORMATION MAY BE OMITTED. This clinical summary was aggregated from multiple sources. Caution should be exercised in using it in the provision of clinical care. This summary normalizes information from multiple sources, and as a consequence, information in this document may materially change the coding, format and clinical context of patient data. In addition, data may be omitted in some cases. CLINICAL DECISIONS SHOULD BE BASED ON THE PRIMARY CLINICAL RECORDS. [employer] [facility]. provides no warranty or guarantee of the accuracy or completeness of information in this document.
[2024-10-22 19:44] VITALS: BP 139/73; PULSE 100; RESP 20; TEMP 37.1; O2SAT 100
[2024-10-22 19:54] VITALS: BMI 37.0
== END 2024-10-22 19:56 | disposition home or self-care (01) ==
PROVIDERS: Emergency Provider Emergency Medicine; PCP Family Medicine; Visit Provider Emergency Medicine
DX: G43.909 Migraine, unspecified, not intractable, without status migrainosus (principal)
CPT/HCPCS: 96361; 96374; 96375; 99283; A4216

== ENCOUNTER → 2024-12-22 | Outpatient (CLI) | payer OTHER, BC, SELFPAY | END | disposition home or self-care (01) | LOC: LABSPEC 16:25 | PROVIDERS: PCP Family Medicine; Visit Provider Nurse Practitioner Family | DX: Z12.4 Encounter for screening for malignant neoplasm of cervix (principal) | CPT/HCPCS: 88175; G0145 ==

== ENCOUNTER → 2025-03-08 | Outpatient (CLI) | payer OTHER, MEDICAID, SELFPAY | END | disposition home or self-care (01) | LOC: LABSPEC 15:38 | PROVIDERS: PCP Family Medicine; Referring Provider Nurse Practitioner Family; Visit Provider Nurse Practitioner Family | DX: R10.A0 Flank pain, unspecified side (principal); R39.89 Other symptoms and signs involving the genitourinary system | CPT/HCPCS: 87070; 87205 ==

== ENCOUNTER → 2025-03-17 | Outpatient (CLI) | payer OTHER, MEDICAID, SELFPAY ==
--- OUTSIDE RECORDS SUMMARY | 2025-03-17 15:52 | XMS RPT_ITS | CCD ---
Author Organization [facility] Care Team Providers Care Water Purification Chemist Name Role Phone Chanel Esparza Unavailable Unavailable [...] Unavailable EDUARD COPPOLA Unavailable Unavailable REFERRING, SEAN WO ID Unavailable Unavailable MYRON VIVEROS Unavailable Unavailable EDUARD COPPOLA Unavailable Unavailable DR EDUARD COPPOLA DO Primary Care Physician [phone] BRIA SMITH MD Attending Unavailable DR. EDUARD [...] Provider Anirudh Jerez MD Primary Care Provider JAYE BOWLING Attending Unavailable VIKY, CHALON Primary Care Unavailable VIKY, CHALON Primary Care Unavailable BRIA SMITH Attending Unavailable DASH, JAYE Referring Unavailable VIKY, CHALON Primary Care Unavailable BRIA SMITH Attending Unavailable DASH, JAYE Referring Unavailable DASH, JAYE Attending Unavailable VKIY, CHALON Primary Care Unavailable SHANNEN-TAKLA, JOSH Attending Unavailable DASH, JAYE Referring Unavailable VIKY, CHALON Primary Care Unavailable DASH, JAYE Attending Unavailable VIKY, CHALON Primary Care Unavailable DASH, JAYE Attending Unavailable VIKY, CHALON Primary Care Unavailable DASH, JAYE Attending Unavailable VIKY, CHALON Primary Care Unavailable SHANNEN-TAKLA, JOSH Attending Unavailable SHANNEN-TAKLA, JOSH Referring Unavailable VIKY, CHALON Primary Care Unavailable DASH, JAYE Attending Unavailable DASH, JAYE Referring Unavailable VIKY, CHALON Primary Care Unavailable Viky, Chalon Primary Care Unavailable Hugo Davey Attending Unavailable Viky, Chalon Primary Care Unavailable Viky, Chalon Referring Unavailable Viky, Anirudh Attending Unavailable Cecilio Dove Attending Unavailabl e Viky, Chalon Primary Care Unavailable Bria Mancuso Consulting Unavailable Cecilio Dove Referring Unavailabl e Viky, Chalon Primary Care Unavailable Hugo Davey Attending Unavailable Viky, Chalon Primary Care Unavailable Hugo Davey Attending Unavailable Viky, Chalon Primary Care Unavailable Viky, Chalon Referring Unavailable Josie Latif Attending Unavailable Viky, Chalon Primary Care Unavailable Hugo Davey Attending Unavailable Viky, Chalon Primary Care Unavailable Miky Damian Attending Unavailable Viky, Chalon Primary Care Unavailable Viky, Chalon Referring Unavailable Viky, Chalon Attending Unavailable Viky, Soniyaon Attending Unavailable Viky, Chalon Primary Care Unavailable Viky, Chalon Referring Unavailable Viky, Chalon Primary Care Unavailable Hugo Davey Attending Unavailable Viky, Chalon Primary Care Unavailable Galilea Montemayor Referring Unavailable Galilea Montemayor Attending Unavailable Viky, Chalon Primary Care Unavailable Santi Singh Referring Unavailable Santi Singh Attending Unavailable Viky, Chalon Primary Care Unavailable Galilea Montemayor Referring Unavailable Galilea Montemayor Attending Unavailable Viky, Chalon Primary Care Unavailable Josie Latif Attending Unavailable Viky, Chalon Primary Care Unavailable Hugo Davey Attending Unavailable SeeseHugo Attending Unavailable Viky, Chalon Primary Care Unavailable Viky, Chalon Primary Care Unavailable Hugo Davey Attending Unavailable Viky, Chalon Primary Care Unavailable Hugo Davey Attending Unavailable Viky, Chalon Primary Care Unavailable Viky, Chalon Referring Unavailable Josie Latif Attending Unavailable Allergies Allergy Classification Reported Allergen(s) Allergy Type Date of Onset Reaction(s) Facility (20 sources) Amoxicillin; Translations: [amoxicillin] Drug Allergy 05-08-19 [facility] (20 sources) Erythromycin; Translations: [erythromycin] Drug Allergy 05-08-19 [facility] (1 source) Penicillin; Translations: [penicillin] Drug Allergy [facility] (20 sources) Sulfamethoxazole / Trimethoprim; Translations: [sulfamethoxazole-tr imethoprim] Drug Allergy 05-08-19 [facility] (20 sources) Egg white Allergy to substance 10-09-19 [facility] (20 sources) Penicillins; Translations: [PENICILLINS] Drug Allergy 05-08-19 [facility] (2 sources) Penicillins Allergy to substance 01-15-[address] [facility] (2 sources) Sulfamethoxazole Drug Allergy 01-15-[address] [facility] (2 sources) Trimethoprim Drug Allergy 01-15-[address] [facility] (3 sources) egg extract; Translations: [EGG] Drug Allergy 10-09-19 [facility] (2 sources) Penicillins Drug Allergy 10-09-19 [facility] (8 sources) EPINEPHrine; Translations: [EPINEPHRINE] Drug Allergy 03-02-20 19 Other: See Comments [facility] (1 source) Sulfamethoxazole / Trimethoprim; Translations: [SULFAMETHOXAZOLE-TR IMETHOPRIM] Drug Allergy 05-08-19 [facility] (1 source) Amoxicillin Drug Allergy 12-23-19 [facility] (1 source) Erythromycin Drug Allergy 12-23-19 [facility] (1 source) Penicillins Drug allergy (disorder) 12-23-19 [facility] (1 source) Sulfamethoxazole Drug Allergy 12-23-19 [facility] (1 source) Trimethoprim Drug Allergy 12-23-19 [facility] Medications Current Medications Medication Drug Class(es) [...] by mouth daily at bedtime. 08/01/2022 Active atogepant (Qulipta) 60 MG tablet (7 sources) Start: 10-21-2024 End: 04-19-2025 take 1 tablet by mouth once daily atogepant (Qulipta) 60 MG tablet Take 1 tablet (60 mg) by mouth daily. 30 tablet 5 10/21/2024 04/19/2025 Active baclofen 10 mg oral tablet (6 sources) gamma-Aminobutyric Acid-ergic Agonist Start: 11-17-2024 take 1 tablet by mouth twice daily baclofen (Lioresal) 10 MG tablet Take 1 tablet (10 mg) by mouth 2 times daily. 60 tablet 1 11/17/2024 Active clindamycin 10 mg/ml topical lotion (15 [...] bedtime. 01/19/2022 04/11/2024 Discontinued (Med list cleanup) End: 11-17-2024 take 1 capsule by mouth once daily in the morning DULoxetine (Cymbalta) [address] capsule Take 30 mg by mouth every morning. Do not crush or chew. 11/17/2024 Discontinued End: 10-19-2024 take 1 capsule by mouth [...] tablet by alexis th once each week. FLUoxetine 10 mg oral capsule (6 sources) Serotonin Reuptake Inhibitor Start: 5 take 1 capsule by mouth once daily, then take 1 capsule by mouth every other day FLUoxetine (PROzac) 10 MG capsule TAKE 1 CAPSULE BY MOUTH ONCE DAILY FOR 14 DAYS, THEN TAKE 1 CAPSULE EVERY OTHER DAY. 11/03/2024 Active 1.5 ml fremanezumab-vfrm 150 mg/ml auto-injector (20 sources) Start: 4 End: 5 fremanezumab (Ajovy) 225 MG/1.5ML auto-injector Indications: Migraine [...] (AJOVY) Active lamoTRIgine 100 mg oral tablet (20 sources) Mood Stabilizer, Anti-epileptic Agent take 1 tablet by mouth once daily in the evening lamoTRIgine (LaMICtal) 100 MG tablet Take 100 mg by mouth every evening. Active lasmiditan 100 mg oral tablet (2 sources) Start: 11-29-19 End: 01-08-20 take 1 tablet by mouth every twenty-four hours as needed Lasmiditan Succinate (Reyvow) 100 MG tablet Indications: Intractable chronic migraine without aura and without status migrainosus Take 100 mg by mouth Once as needed (Migraine). No more than one dose in 24 hours. 8 tablet 5 12/08/2024 12:54 PM EDT 11/28/2024 01/07/2025 Active MEDICAL MARIJUANA (2 sources) Start: 01-15-20 MEDICAL MARIJUANA Active January 13, 2023 11:00pm Start: 01-14-2023 MEDICAL MARIJU ZARIA Active January 14, 2023 12:00am Melatonin (14 [...] Re fill(s) Start Date: 09/20/17 Status: Ordered 24 hr propranolol hydrochloride 120 mg extended release oral capsule (13 sources) beta-Adrenergic Emilie Start: 11-28-2024 End: 11-28-2025 take 1 capsule by mouth once daily propranolol LA (Inderal LA) 120 MG 24 hr capsule Take 1 capsule (120 mg) by mouth daily. Do not crush, chew, or split. 30 capsule 2 11/28/2024 11/28/2025 Active Start: 10-31-2024 End: 10-31-2025 take 1 capsule by mouth once daily propranolol LA (Inderal LA) 80 MG 24 hr capsule Take 1 capsule (80 mg) by mouth daily. Do not crush, chew, or split. 30 capsule 2 10/31/2024 10/31/2025 Active Start: 05-31-2024 End: 09-08-2024 take 1 capsule by mouth once daily propranolol LA (Inderal LA) 80 MG 24 hr capsule Take 1 capsule (80 mg) by mouth Nightly. Do not crush, chew, or split. 30 capsule 2 05/31/2024 09/08/2024 Discontinued spironolactone 25 mg oral tablet (2 sources) Aldosterone Antagonist take 1 tablet by mouth twice daily spironolactone (ALDACTONE) 25 mg tablet Take 25 mg by mouth twice daily. Active Comment on above: Take 25 mg by mouth twice daily. traMADol hydrochloride 50 mg oral tablet (15 sources) Opioid Agonist Start: 10-28-19 take 1 tablet by mouth twice daily as needed traMADol (Ultram) 50 MG tablet Take 50 mg by mouth 2 times daily as needed. 10/27/2024 Active End: 07-05-2024 take 1 tablet by mouth twice daily as needed traMADol (Ultram) 50 MG tablet Take 50 mg by mouth 2 times daily as needed. 07/05/2024 Discontinued tretinoin 0.5 mg/ml topical cream (6 sources) Retinoid Start: 08-11-2024 tretinoin (Ret in-A) 0.05 % cream APPLY A THIN LAYER TO FULL FACE EVERY OTHER NIGHT TO NIGHTLY TOLERATED 08/11/2024 Active tumeric (1 source) Start: 05-27-2018 tumeric tumeri c, 0 Refill(s) Start Date: 05/27/18 Status: Ordered [...] Start: 03-19-2023 End: 07-05-2024 drospirenone-eth inyl estradiol (Betsy, Jarrod) 3-0.02 MG tablet Take 1 tablet by [...] Intraprocedure 1 ml LORazepam 2 mg/ml injection (8 sources) Benzodiazepine Start: 10-19-2024 End: 10-19-2024 1 mg, IntraVENous, Once, On Thu10/19/24 at 1215, For 1 dose, For IV doses dilute dose with 1ml NS. Start: 10-18-2024 End: 10-18-2024 1 mg, IntraVENous, Once, On Thu10/18/24 at 1215, For 1 dose, For IV doses dilute dose with 1ml NS. Start: 09-14-2024 take 1 tablet by [facility] once daily as needed for anxiety LORazepam (Ativan) 0.5 MG tablet Take 0.5 mg by mouth daily as needed for anxiety. 09/14/2024 Active N-ACETYL CYSTEINE PO (9 sources) End: 07-05-2024 [...] migraine (july repeat x1). 9 tablet 3 04/14/2024 07/05/2024 [...] on above: Take 1 tablet by alexis once daily. phentermine hydrochloride 37.5 mg oral [...] 4 days. 20 tablet 04/11/2024 05/24/2024 Discontinued repaglinide 1 mg oral tablet (3 [...] less into rate field of order. thyroid (longterm) 15 mg oral tablet (7 sources) Start: 01-08-2022 End: 10-23-2022 take 3 tablets by mouth once daily in the morning BROKE BEATER OPERATOR Thyroid 15 MG tablet TAKE 3 TABLETS [...] 70 tablet 05/24/2024 05/26/2024 Discontinued (Side effects) traZODone hydrochloride 50 mg oral tablet (20 [...] Active Problems Problem Classification Problem Date Documented Date Episodic/Chronic Anxiety disorders (5 sources) Anxiety; Translations: [Anxiety disorder] Onset: 01-16-2025 09-18-2016 Chronic Contraceptive and procreative management (2 sources) Encounter for contraceptive management, unspecified; Translations: [Encounter for initial prescription of contraceptive pills] Onset: 01-16-2025 Episodic Headache; including migraine (20 sources) Migraine without aura, not refractory ; Translations: [Chronic migraine without aura, not intractable, without status migrainosus] Onset: 10-22-2022 10-22-2022 Chronic Mood disorders (4 sources) Depressive disorder; Translations: [Recurrent major depression in full remission] Onset: 01-16-2025 10-08-2020 Chronic Multiple sclerosis (8 sources) Multiple sclerosis; Translations: [Multiple sclerosis] Onset: 06-22-2024 06-22-2024 Chronic Nonspecific chest pain (2 sources) Chest wall pain; Translations: [Other chest pain] 01-14-2023 Episodic Other connective tissue disease (1 source) Plantar fascial fibromatosis; Translations: [Plantar fascial fibromatosis] Onset: 01-31-2025 Episodic Other endocrine disorders (1 source) Other ovarian dysfunction; Translations: [Other ovarian dysfunction] Onset: 05-20-2022 Chronic Other female genital disorders (2 sources) Vulvodynia, unspecified; Translations: [VULVODYNIA, UNSPECIFIED] Onset: 09-18-2016 Chronic Other injuries and conditions due to external causes (1 source) Injury of left ankle; Translations: [Unspecified injury of left ankle, initial encounter] 08-15-2022 Episodic Other nutritional; endocrine; and metabolic disorders (1 source) Obesity, unspecified; Translations: [Obesity, unspecified classification, unspecified obesity type, unspecified whether serious comorbidity present] Onset: 01-28-2023 Chronic Other screening for suspected conditions (not mental disorders or infectious disease) (1 source) Encounter for screening for malignant neoplasm of cervix; Translations: [Encounter for screening for malignant neoplasm of cervix] Onset: 01-16-2025 Episodic Spondylosis; intervertebral disc disorders; other back problems (16 sources) Thoracic back pain; Translations: [Pain in thoracic spine] Onset: 11-17-2024 01-14-2023 Episodic Suicide and intentional self-inflicted injury [...] Translations: [Other headache syndrome] Onset: 06-20-2024 Episodic Malaise and fatigue (1 source) Other fatigue; Translations: [Other fatigue] Onset: 10-03-2024 Episodic Other gastrointestinal disorders (2 sources) Diarrhea, unspecified; Translations: [Diarrhea, unspecified] Onset: 02-22-2017 Episodic Other injuries and conditions due to external causes (1 source) Unspecified injury of left ankle, initial encounter; Translations: [Injury of left ankle, initial encounter] Onset: 08-15-2022 Episodic Other injuries and conditions due to external causes (1 source) Unspecified injury of left foot, initial encounter; Translations: [Unspecified injury of left foot, initial encounter] Onset: 09-08-2024 Episodic Other skin disorders (2 sources) Rash and other nonspecific skin eruption; Translations: [Rash and other nonspecific skin eruption] Onset: 02-22-2017 Episodic Unclassified (1 source) ALLERGIC RESPONSE //NO DX Onset: 09-18-2016 Urinary tract infections (2 sources) Urethritis; Translations: [Other urethritis] Onset: 04-07-2019 04-07-2019 Episodic Results Test Name Value Interpretation Reference Range Facility Inital Evaluation (1) - PTon 01-25-2025 Inital Evaluation (1) - PT [facility] [place] [address] / REHABILITATION SERVICES INITIAL EVALUATION MR#: [id number] Acct: [id number] Name: ROSY RAWLS Rep #: [id number] : 1995 29 From: Jayna Churchill DPT, OCS, CSCS Referring Dr.: Dr. Santi Singh DPM Status: REG RCR Insurance: [facility] STUDENT RESOURCES [facility] Patient's Visit Information Visit Information Visit Information: ROSY RAWLS is a 29 year old F referred to Physical Therapy by Dr. Santi Singh DPM with a diagnosis of L PFitis. Date of Evaluation: 01/25/25 Physical Therapist: Jayna Churchill DPT, OCS, CSCS Visit Plan Frequency: 2-3x /Week Duration: 4-6 Weeks Plan: 2-3x/week for 4 weeks for: IE HEP wall PF stretch 30 4x 2x/day, rollout PF L 2 min prior to stretch, ice rollout 8 min if sore, use of night splint for at leeast an hour, Ho given. AP if sitting long timee Treat with MH to PF L, STM L PFand calcaneal mobs grade 1 distraction, Hawk tools body L PF scarping, US nonthermal to L PF, strength of ankle and foot to tolerance. to HEP. consider Dry needle or RPW if not improved in 3 weeks. Subjective Subjective: L PFitis and calcaneal heel spur. Jim painful for 7 months. maybee with weight gain with meds but not sure. Treatments: crutches helped but hurt back, night splint but cannot wear it due to toe numbness. Boot currently is helping. Icy hot gel . Stretches: PF wall stretch , kneling PF toe streetch, HS stretech for did not help much. orthotics power steps helped at first. Sleep is OK. 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 moving to labs is challenging. Hobbies: olsen, [place] [employer] , stands for for two hours in concert, Regular exercises: not with this and chronic migaraines. 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 Pain L PF: Pain Intensity (Out of 10): 1 Pain Intensity Range: 1 and 8 Comment: after walking, morning sometimes first few steps. Objective Objective: L boot ambulation casuing antalgia in gait, donned adn doffed I and more antalgia without boot on avoiding PF stretching L side, short R step length. Trasnfers chair and bed I. Avoids WB L foot as much as possible in stance. hypermobile throughtout body except PF which has palpable tightness L foot and tender mdoerately through body mostly and minimally on calcaneal origin L. 8 Df adn 60 PF and 30 inv adn 20 eversion B without pain in ankles or foot. Metatrsals moving well and not tender at MTP joints L, big toe moves well and 4/5 strngth flex and ext. Ankle strength 4/5 B ankles Balance/Special Test Scores Lower Extremity Functional Score: 36 Goals Goal 1:: i appropriate HEEP to limit future pain. Goal Time Frame: 4-6 Weeks Goal 2:: Pain in L foot 2/10 at worst and 75% better overall. 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 Rehabilitation Potential: Fair Anticipated Interventions Patient/Client Instruction: Educate patient on: Condition and Plan of Care For the Purpose of:: To decrease pain, To improve nutrient delivery to tissue, To increase oxygenation perfusion, To improve muscle performance and motor function, To increase tolerance to activity/condition/p osition, To improve ability of physical actions for home/community/work/ leisure and To improve gait and locomotor functions Therapeutic Exercise to Include: Strength training, Flexibilty training and Gait and locomotor training For the Purpose of:: To decrease pain, To decrease swelling/inflammatio n, To improve nutrient delivery to tissue, To increase oxygenation perfusion and To increase tolerance to activity/condition/p osition Manual Therapy Techniques to Include: Mobilization, Passive ROM and Soft tissue mobilization Comment: hawk tools For the Purpose of:: To decrease pain, To decrease swelling/inflammatio n, To improve nutrient delivery to tissue and To increase oxygenation perfusion Thermo therapy (hot pack): Yes For the Purpose of:: To decrease pain Text: Thank you for the opportunity to evaluate your patient. For Medicare and Medicare HMO plans, please review the plan of care and approve it. It will need to be FAXED BACK to us at [phone] for Medicare purposes. For Medicare only, by signing this I certify the plan of care. Please let me know if there are questions or concerns regarding this plan of care. Physician Signature: D ate: (more content not included)... Normal [facility] PAP I-G w/rfx hrHPV-Aptimaon 12-29-2024 ADEQ Comment Normal . [facility] Comment on above: Order Comment: Speci men Comment: [id number] Specimen Comment: No. of containers..01 ThinPrep Vial Result Comment: Sati sfactory for evaluation. Endocervical and/or squamous metaplastic cells (endocervical component) are present. Performed By: #### L 7400.0353 #### [facility] [address] [place], [place], [id number] COMM . Normal . [facility] Comment on above: Order Comment: Speci men Comment: [id number] Specimen Comment: No. of containers..01 ThinPrep Vial Performed By: #### L 7400.0353 #### [facility] [address] [place], [place], [id number] COMMENT Comment Normal . [facility] Comment on above: Order Comment: Violet bonilla Comment: [id number] Specimen Comment: No. of containers..01 ThinPrep Vial Result Comment: This liquid based ThinPrep(R) pap test was screened with the use of an image guided system. Performed By: #### L 7400.0353 #### [facility] [address] [place], [place], [address] DIAG Comment Normal . [facility] Comment on above: Order Comment: Speci men Comment: [id number] Specimen Comment: No. of containers..01 ThinPrep Vial Result Comment: NEGA TIVE FOR INTRAEPITHELIAL LESION OR MALIGNANCY. Performed By: #### L 7400.0353 #### [facility] [address] [place], [address] HPV RFLX Comment Normal . [facility] Comment on above: Order Comment: Speci men Comment: [id number] Specimen Comment: No. of containers..01 ThinPrep Vial Result Comment: The HPV DNA reflex criteria were not met with this specimen result therefore, no HPV testing was performed. Performed at: [address] [id number] [employer] Operator: Kimberlee Wallace MD, Phone: [phone] Performed By: #### L 7400.0353 #### [facility] [address] [place], [place], [address] PAPSMR Comment Normal . [facility] Comment on above: Order Comment: Speci men Comment: [id number] Specimen Comment: No. of containers..01 ThinPrep Vial Result Comment: The Pap smear is a screening test designed to aid in the detection of premalignant and malignant conditions of the uterine cervix. It is not a diagnostic procedure and should not be used as the sole means of detecting cervical cancer. Both false-positive and false-negative reports do occur. Performed By: #### L 7400.0353 #### [facility] [address] [place], [place], [id number] PERFORM Comment Normal . [facility] Comment on above: Order Comment: Speci men Comment: [id number] Specimen Comment: No. of containers..01 ThinPrep Vial Result Comment: Yasmeen Weaver, Crown Wheel Assembler (ASCP) Performed By: #### L 7400.0353 #### [facility] [address] [place], [address] MR/BMS.BPon 12-22-2024 MR/BMS.BP [facility] [address], [address] [place], [place] [id number] OFFICE VISIT Date of Service: 12/22/24 MR#: [id number] Acct: [id number] Name: ROSY RAWLS Rep #: [id number] : 1995 Provider: Dr. Hugo Liz se, DO Age/Sex: 29/F Location: [facility] [place].BP Status: Signed Intake Vital Signs 12/14/24 13:37 12/22/24 08:31 Height 5 ft 9 in 5 ft 9 in Weight: 231 lb 8 oz BMI 34.2 BP 139/88 H 115/76 Blood Pressure Location Lt brachial Position Sitting Respiration 16 Pulse 63 Pulse Source Monitor BP Intake Visit Reasons: Accute visit Accompanied by: Self Allergies amoxicillin Allergy (Verified 12/22/24 08:32) Hives erythromycin base Allergy (Verified 12/22/24 08:32) Hives Penicillins Allergy (Verified 12/22/24 08:32) Hives sulfamethoxazole (From Bactrim) Allergy (Verified 12/22/24 08:32) Hives trimethoprim (From Bactrim) Allergy (Verified 12/22/24 08:32) Hives Medications ???Medication ???Instructions ???Recorded ???Confirmed ???Type MEDICAL MARIJUANA 01/14/23 12/22/24 History hydroxyzine pamoate 50 mg capsule 50 mg PO Q8H PRN anxiety 30 days 04/05/24 12/22/24 Rx #90 caps melatonin 5 mg capsule mg PO 07/20/24 12/22/24 History lorazepam 0.5 mg tablet 0.5 mg PO QDAY PRN anxiety #10 tab s 09/14/24 12/22/24 Rx atogepant 60 mg tablet (Qulipta) 60 mg PO QDAY 10/12/24 12/22/24 Hi story lamotrigine 100 mg tablet 100 mg PO DAILY 30 days #30 tabs 0 11/30/24 12/22/24 Rx (Lamictal) propranolol 120 mg capsule,24 mg PO 12/05/24 12/22/24 History hr,extended release norethindrone (contraceptive) 0.35 0.35 mg PO QDAY #84 tabs 5 12/22/24 Rx mg tablet (Jencycla) trazodone 50 mg tablet 50 mg PO QHS 30 days #30 tabs 11/2212/22/24 Rx gabapentin 300 mg capsule 300 mg PO QHS #30 caps 12/22/24 Rx PFSH Medical History (Updated 12/22/24 @ 08:[address] 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 gained 30. lost 30 what type of physical activity do you participate in: none july/gnosticism: None seatbelt use: always do you feel safe at home: Yes additional social history: Single HPI History of Present Illness History provided by: patient HPI: Rosy Rawls is a 29 year old female who presents today for follow up evaluation. Reports that every day is sucking. Feels like she is waking up hours earlier with significant anxiety. Feels like she is anxious about having pain. Describes having the maximum anger response to any type of stressor. Feels like her memory has been very poor. Has cancelled all her counseling appointments and [facility] appointments as she felt that it was worsening things and was leading her to feel distressed for hours afterwards. Will be able to have extra time for her oral exam at the end of the month. Describes brain fog as being so bad. Has had some strong self harm urges and has self harmed in the form of hitting. Sleep has been the only reprieve she has had in recent past. Feels like she is significantly happier when lucid dreaming. Has been having worsening headaches and foot pain. Admits to passive thoughts of suicide without intent or plan. Has been off of fluoxetine for the past 2 weeks. Not interested in restarting duloxetine. Review of Systems Constitutional Denies: fever(s), chills, [...] Integumentary/Breast Denies: rash or new lesions Neurological Reports: headache(s); Denies: dizziness or confusion Endocrine Denies: fatigue or excessive sweating Hematologic/Lymphati c Denies: easy bruising or easy bleeding (more content not included)... [facility] Transmitter Tester Office Visit Reporton 12-22-2024 Transmitter Tester Office Visit Report [facility] [address], [address] [place] [address] OFFICE VISIT Date of Service: 12/22/24 MR#: [id number] Acct: [id number] Name: ROSY RAWLS Rep #: [id number] : 1995 Provider: CONCETTA Hanson Age/Sex: 29/F Location: [facility] Status: Signed Intake Vital Signs 12/14/24 13:37 12/22/24 08:31 12/22/24 15:20 Height 5 ft 9 in 5 ft 9 in 5 ft 9 in Weight: 231 lb 8 oz 231 lb 5 oz BMI 34.2 34.1 BP 139/88 H 115/78 Intake Visit Reasons: Annual (BLOWING WEASAND) Pbx Manager Required: No Is patient in pain?: No Allergies amoxicillin Allergy (Verified 12/22/24 15:22) Hives erythromycin base Allergy (Verified 12/22/24 15:22) Hives Penicillins Allergy (Verified 12/22/24 15:22) Hives sulfamethoxazole (From Bactrim) Allergy (Verified 12/22/24 15:22) Hives trimethoprim (From Bactrim) Allergy (Verified 12/22/24 15:22) Hives Medications ???Medication ???Instructions ???Recorded ???Confirmed ???Type MEDICAL MARIJUANA 01/14/23 12/22/24 History hydroxyzine pamoate 50 mg capsule 50 mg PO Q8H PRN anxiety 30 days 04/05/24 12/22/24 Rx #90 caps melatonin 5 mg capsule mg PO 07/20/24 12/22/24 History lorazepam 0.5 mg tablet 0.5 mg PO QDAY PRN anxiety #10 tab s 09/14/24 12/22/24 Rx atogepant 60 mg tablet (Qulipta) 60 mg PO QDAY 10/12/24 12/22/24 Hi story lamotrigine 100 mg tablet 100 mg PO DAILY 30 days #30 tabs 0 11/30/24 12/22/24 Rx (Lamictal) propranolol 120 mg capsule,24 mg PO 12/05/24 12/22/24 History hr,extended release trazodone 50 mg tablet 50 mg PO QHS 30 days #30 tabs 11/2212/22/24 Rx gabapentin 300 mg capsule 300 mg PO QHS #30 caps 12/22/24 Rx norethindrone (contraceptive) 0.35 0.35 mg PO QDAY #84 tabs 5 12/22/24 Rx mg tablet (Jencycla) Post menopausal: No Patient : No : No PFSH Medical History JAILYN (generalized anxiety disorder) History of lumbar puncture Excoriation (skin-picking) disorder PTSD (post-traumatic stress disorder) Major depressive disorder, recurrent severe without psychotic features Chronic migraine Interstitial cystitis Surgical History History of colposcopy H/O cystoscopy Social History adopted: No number of children: 0 current occupational status: employed 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 gained 30. lost 30 what type of physical activity do you participate in: none july/gnosticism: None seatbelt use: always do you feel safe at home: Yes additional social history: Single HPI Annual (BLOWING WEASAND) Details: ROSY RAWLS is a 29 year old who presents for PAP only; she was recently seen for annual while on menses. Reports no issues or concerns today. ROS Const Constitutional: Denies chills, fatigue, fever(s) or weight loss GI GI: Denies abdominal pain, constipation or nausea : Denies difficulty voiding, dysuria, hematuria, pelvic pain, prolapse symptoms, urinary incontinence, vaginal discharge, vaginal dryness, vaginal odor or vaginal pruritus Psych Psych: Reports anxiety, depression and other (controlled with meds through psychiatry. ); Denies homicidal ideation or suicidal ideation Exam Const General: cooperative, healthy appearing, comfortable, no acute distress, well groomed and well hydrated Nutritional Appearance: well nourished Orientation: alert, awake and oriented x3 Resp Effort Inspection: normal respiratory effort, able to speak in complete sentences and symmetric chest movement General: bladder normal to palpation External Female Exam: normal external appearance and normal appearance of the urethra Urethra: normal appearance of the urethra Speculum Exam - Vagina: normal appearance of the vagina, normal vaginal discharge, no lesions and nontender Speculum Exam - Cervix: normal appearance of the cervix, no lesions and no masses Bimanual Exam- Vagina Uterus: normal bimanual exam, uterine size normal, bladder normal to palpation, normal palpation and non-tender Bimanual Exam- Adnexa, other: normal adnexae, no masses, normal and non-tender Pelvic Support: normal Neuro General: patient alert, patient awake, patient oriented x3 and moves all extremities Psych Appearance: grossly normal Mental Status: mental status grossly normal Affect: normal affect Speech and Movement: speech and movement normal Attitude: cooperative Coding Level of Care Code Established Pt Off vis,est,level 3 Pa (more content not included)... [facility] Transmitter Tester Office Visit Reporton 12-14-2024 Transmitter Tester Office Visit Report [facility] [address] [place] [address], [address] [place] [address] OFFICE VISIT Date of Service: 12/14/24 MR#: [id number] Acct: [id number] Name: ROSY RAWLS Rep #: [id number] : 1995 Provider: CONCETTA Hanson Age/Sex: 29/F Location: [facility] Status: Signed Intake Vital Signs 07/20/24 13:51 12/05/24 09:34 12/14/24 13:37 Height 5 ft 9 in 5 ft 9 in 5 ft 9 in Weight: 231 lb 8 oz BMI 34.2 BP 139/88 H Intake Visit Reasons: Annual (BLOWING WEASAND) Pbx Manager Required: No Is patient in pain?: No Allergies amoxicillin Allergy (Verified 12/14/24 13:40) Hives erythromycin base Allergy (Verified 12/14/24 13:40) Hives Penicillins Allergy (Verified 12/14/24 13:40) Hives sulfamethoxazole (From Bactrim) Allergy (Verified 12/14/24 13:40) Hives trimethoprim (From Bactrim) Allergy (Verified 12/14/24 13:40) Hives Medications ???Medication ???Instructions ???Recorded ???Confirmed ???Type MEDICAL MARIJUANA 01/14/23 12/14/24 History hydroxyzine pamoate 50 mg capsule 50 mg PO Q8H PRN anxiety 30 days 04/05/24 12/14/24 Rx #90 caps melatonin 5 mg capsule mg PO 07/20/24 12/14/24 History lorazepam 0.5 mg tablet 0.5 mg PO QDAY PRN anxiety #10 tab s 09/14/24 12/14/24 Rx atogepant 60 mg tablet (Qulipta) 60 mg PO QDAY 10/12/24 12/14/24 Hi story fluoxetine 10 mg capsule 10 mg PO .COMPLEX #30 caps 5 12/14/24 Rx lamotrigine 100 mg tablet 100 mg PO DAILY 30 days #30 tabs 0 11/30/24 12/14/24 Rx (Lamictal) propranolol 120 mg capsule,24 mg PO 12/05/24 12/14/24 History hr,extended release norethindrone (contraceptive) 0.35 0.35 mg PO QDAY #84 tabs 5 12/14/24 Rx mg tablet (Jencycla) trazodone 50 mg tablet 50 mg PO QHS 30 days #30 tabs 11/2212/14/24 Rx Is last menstrual period known: Yes Last Menstrual Period: 12/13/24 Post menopausal: No Patient : No : No [facility] Medical History (Updated 12/14/24 @ 14:37 by CONCETTA Rodriguez) History of lumbar puncture Excoriation (skin-picking) disorder PTSD (post-traumatic stress disorder) Major depressive disorder, recurrent severe without psychotic features Chronic migraine Interstitial cystitis Surgical History (Updated 12/14/24 @ 13:43 by Vera Alarcon) History of colposcopy H/O cystoscopy Social History (Updated 12/14/24 @ 13:46 by Vera Alarcon) adopted: No number of children: 0 current occupational status: employed 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 gained 30. lost 30 what type of physical activity do you participate in: none july/gnosticism: None seatbelt use: always do you feel safe at home: Yes additional social history: Single HPI Encounter for routine gynecological examination Details: ROSY RAWLS is a 29 year old who presents for annual exam and to establish care. She reports she has had some irregular menses since she was 15 yo. Her current menses start about every 21-23 days. She is otherwise regular now. 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 She went off of this due to migraines and other health issues and has had relief not being on the estrogen. Has not been sexually active in 2 years. Hx childhood trauma. She is interested in POP as a form of contraception as well as to regulate her menses. She is currently on her menses; started yesterday. This is her heavy day. Last PAP: due History of abnormal PAP: ASCUS with HPV positive; hx colposcopy. Reports her HPV then cleared. No current records for review today. Last mammogram: age 40 History of abnormal mammogram: n/a Colon cancer screening: age 45 Other preventative health care screenings: Dr. Jerez; PCP Female Reproductive History Last Menstrual Period: 12/13/24 Cycle Length: 21-35 Bleeding Duration: 5 Questions: metrorrhagia: No, sexually active: Yes (not currently), dyspareunia: No and PCB: No ROS Const Constitutional: Denies chills, fatigue, fever(s), headache(s) or weight loss Eyes Eyes: Denies change in vision ENT ENT: Denies dizziness Cardio Card: Denies chest pain at rest or palpitations Resp Resp: Denies cough or dyspnea GI GI: Denies abdominal pain, constipation or nausea : Denies difficulty voiding, dysuria, hematuria, nipple discharge, pelvic pain, prolapse symptoms, urinary incontinence, vaginal discharge, vaginal dryness, vaginal odor or vaginal pruritus Skin Skin/Breast: Denies alopecia, rash, breast mass, breast pain, breast skin changes or nipple discharge Neuro Neuro: Denies dizziness Psych Psych: Reports anxiety, de (more content not included)... [address] 12-09-2024 36 I called [employer] ( ), GammaCore is not a covered benefit. [facility] notified, they said it may be covered under her medical benefits. They suggest we call pt's medical insurance to see if it can be processed through medical benefits. [facility] will not be able to send pt the GammaCore device. Insurance will need to tell us where she can get it. [facility] 36 I called [facility], they said they tried to PA the GammaCore device but insurance said only the prescriber can initiate the auth. # [facility] 36 12-08-2024 36 Name of caller: Narinder Contact phone number: [phone] Relationship to Patient: Pharmacy Provider: Reyes Bowling Practice: Neurology Chief Complaint/Reason for Call: Narinder called back to check on prior authorization for Gammacore. Please advise. Best time of day caller can be reached: Any Patient advised that office/PCP has 24-48 business hours to return their call: N/A [facility] MR/BMS.BP 12-05-2024 MR/BMS.BP [facility] [address], [address] [place] [id number] OFFICE VISIT Date of Service: 12/05/24 MR#: [id number] Acct: [id number] Name: ROSY RAWLS Rep #: [id number] : 1995 Provider: Dr. Hugo Liz se, DO Age/Sex: 29/F Location: [facility] [place].BP Status: Signed Intake Vital Signs 11/03/24 09:40 12/05/24 09:34 Height 5 ft 9 in 5 ft 9 in Weight: 235 lb BMI 34.7 Comment Attempt x 2 MEY BP BP Intake Visit Reasons: 1 M FU Accompanied by: Self Allergies amoxicillin Allergy (Verified 12/05/24 09:37) Hives erythromycin base Allergy (Verified 12/05/24 09:37) Hives Penicillins Allergy (Verified 12/05/24 09:37) Hives sulfamethoxazole (From Bactrim) Allergy (Verified 12/05/24 09:37) Hives trimethoprim (From Bactrim) Allergy (Verified 12/05/24 09:37) Hives Medications ???Medication ???Instructions ???Recorded ???Confirmed ???Type MEDICAL MARIJUANA 01/14/23 12/05/24 History hydroxyzine pamoate 50 mg capsule 50 mg PO Q8H PRN anxiety 30 days 04/05/24 12/05/24 Rx #90 caps melatonin 5 mg capsule mg PO 07/20/24 12/05/24 History lorazepam 0.5 mg tablet 0.5 mg PO QDAY PRN anxiety #10 tab s 09/14/24 12/05/24 Rx trazodone 50 mg tablet 50 mg PO QHS 30 days #30 tabs /12/05/24 Rx atogepant 60 mg tablet (Qulipta) 60 mg PO QDAY 10/12/24 12/05/24 Hi story fluoxetine 10 mg capsule 10 mg PO .COMPLEX #30 caps 5 12/05/24 Rx lamotrigine 100 mg tablet 100 mg PO DAILY 30 days #30 tabs 0 11/30/24 12/05/24 Rx (Lamictal) propranolol 120 mg capsule,24 mg PO 12/05/24 12/05/24 History hr,extended release [facility] Medical History (Updated 10/30/24 @ 00:00 by Javier Sibley) History of lumbar puncture Excoriation (skin-picking) disorder PTSD (post-traumatic stress disorder) Major depressive disorder, recurrent severe without psychotic features Chronic migraine Interstitial cystitis Social History Smoking Status: Never smoker HPI History of Present Illness History provided by: patient HPI: Rosy Rawls is a 29 year old female who presents today for follow up evaluation. Patient reports that she has been up and down. Largely depends on how she is feeling physically. Has restarted propranolol and is feeling better in regards to headaches but also is feeling fatigued and dizzy with medication. Has been gaining weight however which is frustrating. Has had continued plantar fasciitis. Is still taking every other day of fluoxetine and is completely off of duloxetine. Has been applying for jobs in recent past but does not feel physically able to do much work. Only has this semester to finish her Master's so is looking for a job after graduation. Not interested in starting any other medication at this time. Is scheduled for ketamine consultation in the near future. Will be on January 04. Has been doing largely well with school at this point. 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 Denies SI/HI or AVH. Review of Systems Constitutional Denies: fever(s), chills, [...] Integumentary/Breast Denies: rash or new lesions Neurological Reports: headache(s) (Reports significant headache at this time); Denies: dizziness or confusion Endocrine Denies: fatigue or excessive sweating Hematologic/Lymphati c Denies: easy bruising or easy bleeding Allergic/Immunologic Denies: wheezing Exam Mental Status Exam - Psych Appearance adequately groomed and other (Evidence of significant excoriation on face) Attitude guarded Activity/Motor Behavior MSE activity/motor behavior finding no adventitious movements Speech regular rate, regular volume and regular prosody Mood depressed and anxious Affect restricted Thought Process linear, logical and coherent Thought Content no delusions and no hallucinations Suicidal Ideation none Homicidal Ideation none Attention intact Concentration intact Sensorium/Orientatio n awake, alert and oriented x3 Memory/Cognition other (appropriate for stated age) Insight fair Judgement fair Assessment Plan Assessment Plan (1) PTSD (post-traumatic stress disorder): Plan: - Taking fluoxetine 10 mg every other day and has had some worsening headaches but does plan to continue to taper t (more content not included)... [facility] 36on 12-01-2024 36 Name of caller: Narinder Contact phone number: [phone] Relationship to Patient: Pharmacy Provider: Reyes Bowling Practice: Neurology Chief Complaint/Reason for Call: Pharmacy called to request a prior authorization for Gammacore. Please submit PA as requested. Best time of day caller can be reached: Any Patient advised that office/PCP has 24-48 business hours to return their call: Yes [facility] 36on 11-29-2024 36 Called and relayed message [facility] 36 ----- Message from Josh Mccann MD sent at 11/22/2024 8:18 AM EDT ----- Please inform the patient of the results of the cervical x-ray unremarkable cervical spine study with no significant abnormalities ----- Message ----- From: Interface, Radiology Results In Sent: 11/22/2024 12:04 AM EDT To: Josh Mccann MD [facility] [id number] 11-28-2024 [id number] Requested Prescriptions Signed Prescriptions Disp Refills Lasmiditan Succinate (Reyvow) 100 MG tablet 8 tablet 5 Sig: Take 100 mg by mouth Once as needed (Migraine). No more than one dose in 24 hours. Authorizing Provider: JAYE BOWLING propranolol LA (Inderal LA) 120 MG 24 hr capsule 30 capsule 2 Sig: Take 1 capsule (120 mg) by mouth daily. Do not crush, chew, or split. Authorizing Provider: JAYE BOWLING [place] [facility] and found to be consistent with prescriptions. Patient has been adherent to prescribed therapy. Prescription for Reyvow sent to [facility] for PA. Please fax paperwork for gammaCore as requested. Normal [facility] Office Visiton 11-17-2024 Follow-up visit [id number] Rosy Rawls 1995 F Date Provider Department Center 11/17/2024 [id number], JOSH N [facility] PN None Family History Problem Relation Age of Onset Cancer Father Diabetes Maternal Grandfather Alzheimer's disease Maternal Grandfather Depression Maternal Grandmother Diabetes Maternal Grandmother Alcohol abuse Mother Depression Mother Migraines Mother Arthritis Father's Sister Cancer Father's Sister Family Status - Relation Status Age at Father Alive Maternal Grandfather Maternal Grandmother Alive Mother Alive Father's Sister Alive Father's Sister Alive Level of Service:70185 MA OFFICE/OUTPATIENT NEW MODERATE MDM 45 MINUTES Reason for Visit and Comments: Back Pain [12] Neck Pain [860107] Foot Pain [119599] New Patient [542] Pain [136] - Pt suffers from migraines daily Normal [facility] Progress Noteon 11-17-2024 Progress Note [facility] [place] [address] [facility] [address] Dept: [phone] Dept Chief Complaint Patient presents with Back Pain Neck Pain Foot Pain New Patient Pain Pt suffers from migraines daily SUBJECTIVE HPI: Rosy Rawls is a 29 y.o. year old here today for evaluation and treatment of chronic neck and upper back pain. Patient has been suffering from the pain for almost 5 years as well as suffering from migraine headaches which has been very consistent nonresponsive to medication regimens. Patient states that the pain in the neck area and upper back area is mostly in the middle of her neck and back. She denies any radiation of the pain to the upper extremity. Patient has tried chiropractic adjustments with limited benefit. Patient also has been on tizanidine in the past and has been on Cymbalta which has not been well-tolerated. Review of system, social history, family history, surgical history were all reviewed with the patient and in the chart. OBJECTIVE Vitals: 11/17/24 0820 BP: 127/88 BP Location: Right arm Patient Position: Sitting BP Cuff Size: Large adult Pulse: 73 Weight: 238 lb (108 kg) Height: 5' 9 (1.753 m) GENERAL: On examining the patient, patient not in acute distress. HEENT: Reveals neck supple. No thyromegaly on inspection. NEUROLOGIC: The patient is awake, alert, oriented x3. Muscle strength bilateral symmetrical 5/5 in the upper and lower extremity. No evidence of light touch perception deficits. Straight leg raise was asymptomatic. Deep tendon reflexes were equivocal bilateral symmetrical in upper and lower extremity MUSCULO-SKELETAL: Tenderness involving the cervical and upper thoracic paraspinal muscle area on both sides on palpation and range of motion. ASSESSMENT Chronic conditions not at goal 1. Myofascial neck pain 2. Cervical spine pain Medications: Current Medications[1] PLAN 1. Review of the records including neurology records as well as imaging studies in the form of lumbar puncture and MR of the brain 2. This point the patient's pain seems to be closely related to her migraine status with the significant myofascial component of the pain. 3. I will start patient on baclofen 10 mg to be used twice daily to see if this would offer her some muscle relaxation to help with the relief of the pain. 4. I will order an x-ray of the cervical spine for further evaluation of the affected area. I will see patient back in 3 months for reevaluation. Please note patient was offered the opportunity to have a early head start teacher in the examining room. . Thank you, for allowing me to participate in the care of the patient if you have any questions regarding plan of care please do not hesitate to contact me. Patient was seen and examined during the visit today. Together we discussed the main issues affecting the patient and my medical opinion including treatment options and recommendations. No certainties were made, none were implied. Patient expressed understanding and agreement to our plan going forward. Patient was advised to read the AVS and instructed to contact myself via [employer] or call the office anytime with any questions or concerns. This document was created using voice recognition software. Spelling, grammar and syntax errors are possible. [1] Current Outpatient Medications Medication Sig Dispense Refill atogepant (Qulipta) 60 MG tablet Take 1 tablet (60 mg) by mouth daily. 30 tablet 5 FLUoxetine (PROzac) 10 MG capsule TAKE 1 CAPSULE BY MOUTH ONCE DAILY FOR 14 DAYS, THEN TAKE 1 CAPSULE EVERY OTHER DAY. hydrOXYzine pamoate (Vistaril) 50 MG capsule TAKE 2 CAPSULES BY MOUTH 4 TIMES DAILY lamoTRIgine (LaMICtal) 100 MG tablet Take 100 mg by mouth every evening. LORazepam (Ativan) 0.5 MG tablet Take 0.5 mg by mouth daily as needed for anxiety. propranolol LA (Inderal LA) 80 MG 24 hr capsule Take 1 capsule (80 mg) by mouth daily. Do not crush, chew, or split. 30 capsule 2 traMADol (Ultram) 50 MG tablet Take 50 mg by mouth 2 times daily as needed. traZODone (Desyrel) 50 MG tablet TAKE TWO TABLETS BY MOUTH EVERY DAY AT BEDTIME tretinoin (Retin-A) 0.05 % cream APPLY A THIN LAYER TO FULL FACE EVERY OTHER NIGHT TO NIGHTLY TOLERATED baclofen (Lioresal) 10 MG tablet Take 1 tablet (10 mg) by mouth 2 times daily. 60 tablet 1 No current facility-administere d medications for this visit. [facility] [id number] 11-14-2024 [id number] I spoke with patient, informed her the forms were completed and sent to her [employer]. [facility] [id number] Paperwork completed to be sent as requested. [facility] [id number] 11-11-2024 [id number] Forms printed and placed in provider in-basket. Pt asking if these can be done by 11/14/2024. [facility] 36on 11-11-2024 36 Form printed and placed in provider in-basket. Closing this message as a duplicate to her [employer] message. [facility] 36on 11-10-2024 36 Name of caller: Rosy Contact phone number: [phone] Relationship to Patient: patient Provider: Christopher Bowling Practice: Neurology Chief Complaint/Reason for Call: Rosy called advising she will be sending via [employer] message forms for provider to fill out and send back to her on [employer] for her college. Patient advised if provider can have this completed by 11/14 school based therapist starts. Please call patient back when this has been completed and advise. Best time of day caller can be reached: any Patient advised that office/PCP has 24-48 business hours to return their call: Yes Normal [facility] MR/BMS.BPon 11-03-2024 MR/BMS.BP [facility] [address], [address] [place] [address] OFFICE VISIT Date of Service: 11/03/24 MR#: [id number] Acct: [id number] Name: ROSY RAWLS Rep #: [id number] : 1995 Provider: Dr. Hugo Liz se DO Age/Sex: 29/F Location: [facility].BP Status: Signed Intake Vital Signs 10/12/24 13:00 10/22/24 17:44 11/03/24 09:40 Height 5 ft 9 in 5 ft 9 in 5 ft 9 in BP Intake Visit Reasons: 4-5wfu Allergies amoxicillin Allergy (Verified 10/22/24 17:45) Hives erythromycin base Allergy (Verified 10/22/24 17:45) Hives Penicillins Allergy (Verified 10/22/24 17:45) Hives sulfamethoxazole (From Bactrim) Allergy (Verified 10/22/24 17:45) Hives trimethoprim (From Bactrim) Allergy (Verified 10/22/24 17:45) Hives [facility] Medical History (Updated 10/30/24 @ 00:00 by Javier Sibley) History of lumbar puncture Excoriation (skin-picking) disorder PTSD (post-traumatic stress disorder) Major depressive disorder, recurrent severe without psychotic features Chronic migraine Interstitial cystitis Social History Smoking Status: Never smoker HPI History of Present Illness History provided by: patient HPI: Rosy Rawls is a 29 year old female who presents today for follow up evaluation. Has continued to taper duloxetine with difficulty. Feels like with most recent decrease (20 mg every day) felt that she has not stabilized at same baseline that she had previously. Has been having migraines nearly every day in recent past with reduction in medication. Does not describe them as brain zaps and more similar to migraines she has had in the past. Has been waking up with anxiety nearly every morning which is largely controlled with use of vistaril. Has seen neurology who recommended patient consider ketamine therapy. Plans to return to school in 2 weeks and is very stressed about this and will be trying to get Masters instead of PhD. Review of Systems Constitutional Denies: fever(s), chills, [...] Integumentary/Breast Denies: rash or new lesions Neurological Reports: headache(s) (Reports significant headache at this time); Denies: dizziness or confusion Endocrine Denies: fatigue or excessive sweating Hematologic/Lymphati c Denies: easy bruising or easy bleeding Allergic/Immunologic Denies: wheezing Exam Mental Status Exam - Psych Appearance adequately groomed Attitude guarded Activity/Motor Behavior MSE activity/motor behavior finding no adventitious movements Speech regular rate, regular volume and regular prosody Mood depressed and anxious Affect restricted Thought Process linear, logical and coherent Thought Content no delusions and no hallucinations Suicidal Ideation none Homicidal Ideation none Attention intact Concentration intact Sensorium/Orientatio n awake, alert and oriented x3 Memory/Cognition other (appropriate for stated age) Insight fair Judgement fair Assessment Plan Assessment Plan (1) PTSD (post-traumatic stress disorder): Plan: - Has had significantly difficulty with tapering duloxetine to 20 mg every other day ??? Will add fluoxetine 10 mg daily for 14 days and then 14 days of every other day dosing to taper patient off of duloxetine - Continue lorazepam as needed largely only [...] Excoriation (skin-picking) disorder: Plan: - Fair - More recent picking the face (3) Major depressive disorder, recurrent severe without psychotic features: Plan: - see above regarding duloxetine - continue lamotrigine Medications: New fluoxetine 10 mg orally daily for 14 days then every other day 30 caps 0RF Coding Level of Care Code Off vis,est,level 4 Diagnoses PTSD (post-traumatic stress disorder) F43.10 Excoriation (skin-picking) dis (more content not included)... Normal [facility] Office Visiton 11-03-2024 Follow-up visit [id number] Rosy Rawls 1995 F Date Provider Department Center 11/03/2024 41817-XZCAXYJAYE BOWLING [facility] None No family history on file Level of Service:13730 MA OFFICE/OUTPATIENT ESTABLISHED LOW MDM 20 MIN Reason for Visit and Comments: Follow-up [084528] - 2 month follow up for chronic migraine Normal [facility] Progress Noteon 11-03-2024 Progress Note [facility] Primary Care Physician: Anirudh Jerez MD Chief Complaint: Chief Complaint Patient presents with Follow-up 2 month follow up for chronic migraine Main Diagnosis: Diagnosis Plan 1. Intractable chronic migraine without aura and without status migrainosus History: given by the patient and EMR. EMR was personally reviewed prior to today's visit and included review of prior notes and intermediate communications. HPI: Ms. Rosy Rawls is a 29 y.o. female who is seen in the NEUROLOGY CLINIC of [facility] for complaint of headaches. Patient states [...] not drink alcohol. The last visit was 09/08/2024 with this provider where DHE infusions were ordered for treatment of continued migraine pain. Headache characteristics: Description of pain: throbbing pain, bilateral in the occipital area. Duration of individual headaches: 8-36 hour(s), frequency weekly. Associated symptoms: aura, light sensitivity, nausea, and sound sensitivity. Pain relief: unable to obtain relief with OTC meds. Precipitating factors: stress. INTERVAL HISTORY: Today, the patient returns for follow up of migraine pain on current medication regimen. The patient reports continued migraine pain despite intervention. She states previously prescribed propranolol and qulipta helped some with management of migraine pain. The patient is requesting to restart both medications. Prescriptions sent as requested. Discussed with the patient previously starting ketamine infusions to help with migraine pain. The patient states psychiatry sent referral for ketamine infusion which may also be beneficial for mental health diagnoses. She states she has transitioned off cymbalta. A month ago stopped cymbalta but had side effects. Resarted at 20 mg every other day due to withdrawal side effects. Low dose prozac to help with withdrawal. She reports also receiving Tramadol to help with symptoms. The patient reports increase in headache pain after DHE infusions. The patient denies side effects from medications and no new neurological deficits. Current Headache Meds: Qulipta Propranolol Side effects: No known side effects Previous [...] HIVES Sulfamethoxazole-Tri methoprim Hives Other reaction(s): hives Current Outpatient Medications Medication Sig Dispense Refill atogepant (Qulipta) 60 MG tablet Take 1 tablet (60 mg) by mouth daily. 30 tablet 5 DULoxetine (Cymbalta) [address] capsule Take 30 mg by mouth every morning. Do not crush or chew. (Patient not taking: Reported on 11/03/2024) hydrOXYzine pamoate (Vistaril) 50 MG capsule TAKE 2 CAPSULES BY MOUTH 4 TIMES DAILY lamoTRIgine (LaMICtal) 100 MG tablet Take 100 mg by mouth every evening. propranolol LA (Inderal LA) 80 MG 24 hr capsule Take 1 capsule (80 mg) by mouth daily. Do not crush, chew, or split. 30 capsule 2 traZODone (Desyrel) 50 MG tablet TAKE TWO TABLETS BY MOUTH EVERY DAY AT BEDTIME No current facility-administere d medications for this visit. No family history on file. Social Connections: Not on file REVIEW OF SYSTEMS: Review of Systems Constitutional: Positive for appetite change. Negative for activity change and chills. HENT: Negative for ear pain, f (more content not included)... [facility] Progress Note Patient was able to ambulate safely to the examination room. Provider was not notified of possible fall risk Pt also reports that she was prescribed a small dose of Prozac. Has not yet started taking. Did not know the dosage. [facility] [id number] 10-31-2024 [id number] Requested Prescriptions Signed Prescriptions Disp Refills propranolol LA (Inderal LA) 80 MG 24 hr capsule 30 capsule 2 Sig: Take 1 capsule (80 mg) by mouth daily. Do not crush, chew, or split. Authorizing Provider: JAYE BOWLING [facility] 29on 10-24-2024 29 Addended by: JAYE BOWLING on: 10/24/2024 03:25 PM Modules accepted: Orders [facility] Emergency Department Summary on 10-22-2024 Emergency Department Summary [facility] Medical Records Department [address] [place] [address] Emergency Department Summary 10/22/24 MR#: [id number] Acct: [id number] Name: ROSY RAWLS Rep #: [id number] : 1995 29 From: Anabella LEVI PCP: Dr. Anirudh Jerez MD Status:DEP ER Location: ED HPI History of Present Illness Chief Complaint: Headache Narrative Narrative: Patient presents today with a migraine she has had over the last several days. She reports a significant history of migraines, she has tried multiple different migraine medications in the past and follows with [facility] neurology. She had a DHE infusion earlier this week for her migraines. She reports that since having this infusion her headache has been worse. She describes the pain as a throbbing sensation to the right side of her head, this is generally where she has her migraines. She also reports photophobia, phonophobia, and nausea. She denies any fevers, chills, and neck pain. She reports that her pain is consistent with previous migraines, however, it is more intense prompting her to come in to be seen. She denies any personal or familial history of brain aneurysms. She had an MRI in May of this year. LMP was 3 weeks ago. [facility] Medical History (Updated 10/22/24 @ 19:34 by AMITA Perez) History of lumbar puncture Excoriation (skin-picking) disorder PTSD (post-traumatic stress disorder) Major depressive disorder, recurrent severe without psychotic features Chronic migraine Interstitial cystitis Home Medications ???Medication ???Instructions ???Recorded ???Last Taken ???Type MEDICAL [facility]IJUANA 01/14/23 Unknown History hydroxyzine pamoate 50 mg capsule 50 mg PO Q8H PRN anxiety 30 days 04/05/24 Unknown Rx #90 caps melatonin 5 mg capsule mg PO 07/20/24 Unknown History lamotrigine 100 mg tablet 100 mg PO DAILY 30 days #30 tabs 0 09/08/24 Unknown Rx (Lamictal) lorazepam 0.5 mg tablet 0.5 mg PO QDAY PRN anxiety #10 tab s 09/14/24 Unknown Rx trazodone 50 mg tablet 50 mg PO QHS 30 days #30 tabs / Unknown Rx atogepant 60 mg tablet (Qulipta) 60 mg PO QDAY 10/12/24 Unknown His tory Allergy/AdvReac Type Severity Reaction Status Date / Time amoxicillin Allergy Hives Verified 10/22/24 17:45 erythromycin base Allergy Hives Verified 10/22/24 17:45 Penicillins Allergy Hives Verified 10/22/24 17:45 sulfamethoxazole (From Allergy Hives Verified 10/22/24 17:45 Bactrim) trimethoprim (From Bactrim) Allergy Hives Verified 10/22/24 17:45 Social History Smoking Status: Never smoker ROS ROS ED Constitutional Constitutional ED: Denies chills or fever(s) Eyes Eyes: Reports photophobia Cardiovascular Cardiovascular: Denies chest pain Respiratory/Chest Respiratory/Chest: Denies dyspnea Gastrointestinal Gastrointestinal: Reports nausea; Denies abdominal pain or vomiting Genitourinary Genitourinary ED: Denies dysuria, hematuria or urinary urgency Musculoskeletal Musculoskeletal: Denies neck pain Integumentary Denies rash Neurologic Neurologic: Reports headache(s); Denies weakness EXAM Physical Exam Const Vital Signs: 10/22/24 17:44 10/22/24 19:44 Temperature 97.9 F 98.8 F Temperature Source Oral Pulse Rate 90 100 Respiratory Rate 30 H 20 H Blood Pressure 145/103 H 139/73 H Blood Pressure Mean 117 95 Pulse Ox 100 100 Oxygen Delivery Method Room Air Positive well nourished, well developed and no apparent distress General Appearance ED: well developed HEENT Reports normocephalic and head/scalp atraumatic Mouth ED: Yes moist mucous membranes normal Eyes PERRL and EOMs intact bilaterally Neck full ROM, supple and no meningeal signs Chest Wall inspection of chest normal Resp normal respiratory effort and clear to auscultation bilaterally Cardio regular rate and regular rhythm GI soft to palpation, non-tender, non-distended and no masses Back/Spine normal ROM and normal to inspection Extremity normal to inspection and full ROM Neuro oriented x3, CN's II-XII intact bilaterally, moves all extremities, no focal motor deficits and no sensory deficits noted Sensorium / Orientation: awake and alert Psych mental status grossly normal and thought process normal Skin no rashes or lesions noted and no wounds Physical Exam Const Vital Signs: 10/22/24 17:44 10/22/24 19:44 Temperature 97.9 F 98.8 F Temperature Source Oral Pulse Rate 90 100 Respiratory Rate 30 H 20 H Blood Pressure 145/103 H 139/73 H Blood Pressure Mean 117 95 Pulse Ox 100 100 Oxygen Delivery Method Room Air MDM MDM MDM Narrative Medical decision making narrative: Patient presenting today due to (more content not included)... Normal [facility] [id number] 10-21-2024 [id number] Requested Prescriptions Signed Prescriptions Disp Refills atogepant (Qulipta) 60 MG tablet 30 tablet 5 Sig: Take 1 tablet (60 mg) by mouth daily. Authorizing Provider: JAYE BOWLING Prescription sent to [facility] for PA. [facility] 36on 10-20-2024 36 Spoke with Reyes Bowling NP and Dr Smith. DHE can cause cystitis-so patient should not come for 3rd infusion today. Rest, increase fluids-no new meds today-and patient cannot tolerate Prednisone. Call with update if she needs anything further. Appt today cancelled [facility] 36 Name of Caller: Rosy Contact Reason [...] Rosy back this morning. Office Name: Neurology [facility] Progress Noteon 10-19-2024 Progress Note Patient tolerated infusion well. Discharged home with friend [facility] Progress Noteon 10-18-2024 Progress Note Patient tolerated infusion well. Discharged home with friend [facility] MR/BMS.BPon 10-12-2024 MR/BMS.BP [address], [address] [place] [address] OFFICE VISIT Date of Service: 10/12/24 MR#: [id number] Acct: [id number] Name: ROSY RAWLS Rep #: [id number] : 1995 Provider: Dr. Hugo Liz se, DO Age/Sex: 29/F Location: [facility] [place].BP Status: Signed Intake Vital Signs 09/14/24 09:19 [...] mg PO QHS 30 days #30 tabs 06/3 10/12/24 Rx atogepant 60 mg tablet (Qulipta) 60 [...] just happenstance. Had a group session of Reiki around this same time which could be [...] abruptly stopping medication including seizure and delirium. Patien (more content not included)... Normal [facility] Ferritinon 09-22-2024 Ferritin [Mass/Vol] 167 ng/mL Normal 22-378 [facility] Comment on above: Performed By: #### L 503.6550, L503.6150 ####[facility] [address] [place], [place], [address] Ironon 09-22-2024 Iron [Mass/Vol] 151 ug/dL Normal 50-170 [facility] Comment on above: Performed By: #### L 503.6550, L503.6150 ####[facility] [address] [place], [place], [address] MR/BMS.BPon 09-14-2024 MR/BMS.BP [facility] [address], [address] [place], [place] [address] OFFICE VISIT Date of Service: 09/14/24 MR#: [id number] Acct: [id number] Name: ROSY RAWLS Rep #: [id number] : 1995 Provider: Dr. Hugo Liz se, DO Age/Sex: 29/F Location: [facility] [place].BP Status: Signed Intake Vital Signs 08/18/24 15:03 [...] (From Bactrim) Allergy (Verified 08/18/24 15:06) Hives [facility] Medical History (Updated 07/20/24 @ 14:02 by [...] with patie (more content not included)... Normal [facility] 36on 09-13-2024 36 Pt scheduled for 10/18/2024 Normal [facility] Office Visiton 09-08-2024 Follow-up visit [id number] Rosy Rawls 1995 F Date Provider Department Center 09/08/2024 [id number]-IOWOSAJAYE BOWLING [facility] None No family history on file Level of Service:55242 MA OFFICE/OUTPATIENT ESTABLISHED LOW MDM 20 MIN Reason for Visit and Comments: Migraine [260702] - Same DHE is going at the end of September Going stop taking Qulipta is it not helping Stopped taking propranolol In a lot of pain today She said she noticed when her sugar drops her migraine is worse Normal [facility] Progress Noteon 09-08-2024 Progress Note [facility] Primary Care Physician: [...] is seen in the [facility]OLOGY CLINIC of [facility] for complaint of headaches. Patient states [...] DAY AT BEDTI (more content not included)... [place] [address]on 09-07-2024 36 Patient prefers to wait for 3 day infusion at end of September. Scheduled for 10-18,, [place] [address] Name of Caller: Rosy Contact Reason for Appointment: Rosy returned call to Mar to schedule her infusion. Please reach out to Rosy when available. Office Name: [facility] [address] 09-06-2024 36 09-06 11:59 LMOVM auth for KLEIN infusion obtained-calling to schedule appt-will attempt to call patient back [place] [address] No prior authorization needed. Infusion verification form scanned into media. Normal [facility] 36 Can you please assist with prior authorization? Normal [facility] Calcaneus min 2 Viewson 08-21 Calcaneus min 2 Views [facility] Imaging Services [address] [place] [address] Calcaneus min 2 Views MR#: [id number] Acct: [id number] Name: ROSY RAWLS Rep #: [id number] : 1995 29 From: Eduard Garcia PCP: Dr. Anirudh Jerez MD Status: REG CLI Study: Calcaneus min 2 Views Date of Exam: 09/02/24 Exam# [id number] Ordering Dr: Anirudh Jerez MD PROCEDURE: CALCANEUS [...] out a currently occult fracture. Reading Location: [address] CC: Dr. Anirudh Jerez MD Director Of Occupational Health: Signed Normal [facility] [id number] 08-31-2024 [id number] DHE order placed for continued migraine pain. Normal [facility] MR/BMS.BPon 08-18-2024 MR/BMS.BP [address], [address] [place] [address] OFFICE VISIT Date of Service: 08/18/24 MR#: [id number] Acct: [id number] Name: ROSY RAWLS Rep #: [id number] : 1995 Provider: Dr. Hugo Liz se, DO Age/Sex: 29/F Location: [facility] [place].BP Status: Signed Intake Vital Signs 07/20/24 13:51 [...] No Neck size large ? (Measured around Michael apple) Is your shirt collar 16 inches / [...] (Standoffish) Activity/Motor Behav (more content not included)... [facility] [id number] 08-03-2024 [id number] Requested Prescriptions Signed Prescriptions Disp Refills Atogepant (Qulipta) 60 MG tablet 30 tablet 5 Sig: Take 60 mg by mouth daily. Authorizing Provider: JAYE BOWLING Please provide PA for medication. [facility] MR/BMS.BPon 07-20-2024 MR/BMS.BP [address], [address] [place] [address] OFFICE VISIT Date of Service: 07/20/24 MR#: [id number] Acct: [id number] Name: ROSY RAWLS Rep #: [id number] : 1995 Provider: Dr. Hugo Liz se, DO Age/Sex: 29/F Location: [facility] [place].BP Status: Signed Intake Vital Signs 05/17/24 11:32 [...] Significantly worse (more content not included)... Normal [facility] Office Visiton 07-05-2024 Follow-up visit [id number] Rosy Rawls 1995 F Date Provider Department Center 07/05/2024 73930-ZOLALRJAYE BOWLING [facility] P None No family history on file Level of Service:70867 MA OFFICE/OUTPATIENT ESTABLISHED LOW MDM 20 MIN Reason for Visit and Comments: Follow-up [819467] Migraine [395660] Normal [facility] Progress Noteon 07-05-2024 Progress Note [facility] Primary Care Physician: [...] is seen in the [facility]OLOGY CLINIC of [facility] for complaint of headaches. Patient states [...] pamoate (V (more content not included)... Normal [facility] AFB CULTUREon 06-22-2024 AFB CULTURE AFB CULTURE Reference No growth at 6 weeks AFB STAIN Reference No acid fast bacilli seen by fluorescent microscopy ORDER COMMENTS: Stain Reference Range: No acid fast bacilli seen by fluorescent microscopy. [ S = SUSCEPTIBLE R = RESISTANT I = INTERMEDIATE S-DD = Susceptible-dose dependent NS = Non-susceptible NO = No Interpretation ] Normal [facility] Comment on above: Performed By: #### L [id number] ####Beauty Operator Apprentice: CORRIE CARBALLO ([id number])[facility] ([facility])[address] [place] [address] GLUCOSE, CSFon 06-22-2024 Appearance (U) Clear and Colorless Normal [facility] Comment on above: Performed By: #### L [id number], [id number] ####Beauty Operator Apprentice: BEBE WINC[place]STER ([id number])[facility] ([facility])[address] [place] [address] Order Comment: Lumba r Puncture GLUCOSE, CSF 79 mg/dL High 40-70 [facility] Comment on above: Performed By: #### L [id number], [id number] ####Beauty Operator Apprentice: BEBE WINC[place] ([id number])[facility])[address] [place] [address] SUPERNATANT Clear and Colorless Normal [facility] Comment on above: Performed By: #### L [id number], [id number] ####Beauty Operator Apprentice: BEBE WINC[place] ([id number])[facility] ([facility])[address] [place] [address] Order Comment: Lumba r Puncture Laboratory - Chemistry and C hemistry - challengeon 06-22-2024 Glucose (CSF) [Mass/Vol] 79 mg/dL High 40 - 70 mg/dL [facility] Protein (CSF) [Mass/Vol] 27 mg/dL 15 - 40 mg/dL [facility] Laboratory - Hematology and Cell countsOrdered By: Estella Paige on 06-22-2024 RBC Manual cnt (CSF) [#/Vol] 11 /mm3 [facility] WBC Manual cnt (CSF) [#/Vol] 4 /mm3 NINF - 5 /mm3 [facility] Laboratory - Hematology and Cell countsOrdered By: Hanh Brooke on 06-22-2024 RBC Manual cnt (CSF) [#/Vol] 3 /mm3 [facility] [place] WBC Manual cnt (CSF) [#/Vol] 1 /mm3 NINF - 5 /mm3 [facility] Laboratory - Specimen inform ationOrdered By: Estella Paige on 06-22-2024 Appearance (CSF) Clear and Colorless [facility] Appearance (Spun CSF) Clear and Colorless [facility] Tube number Nom (CSF) [ID] Tube 4 [facility] [place] Laboratory - Specimen inform ationon 06-22-2024 Appearance (CSF) Clear and Colorless [facility] Laboratory - Specimen inform ationOrdered By: Hanh Brooke on 06-22-2024 Appearance (CSF) Clear and Colorless [facility] Appearance (Spun CSF) Clear and Colorless [facility] [place] Tube number Nom (CSF) [ID] Tube 1 [facility] [place] No Panel InformationOrdered By: Estella Paige on 06-22-2024 [facility] [place] No Panel Informationon 06-22 Interpretation and review of laboratory results [facility] SUPERNATANT Clear and Colorless [facility] Successful uncomplicated fluoroscopic-guided lumbar puncture. Report Dictated on Electronically Signed By: Alvino Spangler MD Electronically Signed Date/Time: 06/22/2024 1:51 PM [facility] Patient Name: ROSY RAWLS : 1995 Exam [...] Needle tip at the level of L4 [facility] Alvino Spangler MD - 06/22/2024 [facility] Name: [facility]Y RAWLS : 1995 [id number] Exam Date/Time: 06/22/2024 13:10 Procedure: IR LUMBAR [...] Electronically Signed Date/Time: 06/22/2024 1:51 PM EDT [facility] Radiology Study observation (narrative) [facility] No Panel InformationOrdered By: Hanh Brooke on 06-22-2024 [facility] No Panel InformationOrdered By: Alvino Spangler on 06-22-2024 [facility] Work Phone: Nursing Noteon 06-22-2024 Nursing Note Patient verbalized readiness to leave. Patient left with all medications, discharge paperwork, and verbalized all belongings present. Patient and family verbalized understanding of patient education. Patient left in wheelchair with family to drive. All questions answered. Normal [facility] OLIGOCLONAL BANDINGon 2024 OLIGOCLONAL BANDS INTERP See Note Normal [facility] Comment on above: Result Comment: Isoe [...] caution when interpreting the results. Performed By: [employer] [address] [place] [address] Baggage Porter Head: Olegario Ospina MD, PhD CLIA Number: [id number] Performed By: #### L AB740 ####[employer] [employer] [facility] ([facility])[address] [place] [address] [facility] OLIGOCLONAL BANDS NUMBER, CSF 0 Bands Normal 0-1 [facility] Comment on above: Performed By: #### L AB740 ####[employer] [facility] ([employer])[address] [place] [address] [facility] OLIGOCLONAL BANDS, CSF Negative Normal Negative [facility] Comment on above: Performed By: #### L AB740 ####[employer] [facility] ([employer])[address] [place] [address] [place] PROTEIN, CSFon 06-22-2024 PROTEIN, CSF 27 mg/dL Normal 15-40 [facility] Comment on above: Order Comment: Lumba r Puncture Performed By: #### L AB195, WBS820 ####Beauty Operator Apprentice: BEBE WINC[place] ([phone])CIER[facility] BARBJULIANA (SBHLAB)[address] SPINAL FLUID CELL COUNTon APPEARANCE CEREBRAL SPINAL FLUID Clear and Colorless Normal [facility] Comment on above: Order Comment: Tube 1 Performed By: #### L AB142 ####Beauty Operator Apprentice: BEBE [place] ([phone])[facility] (SBHLAB)[address] APPEARANCE OF SUPERNATANT CEREBRAL SPINAL FLUID Clear and Colorless Normal [facility] Comment on above: Order Comment: Tube 1 Performed By: #### L AB142 ####Beauty Operator Apprentice: BEBE W[place] ([phone])BENJA BARBJULIANA (SBHLAB)[address] RBC, CSF (MANUAL) 3 /mm3 Normal [facility] Comment on above: Order Comment: Tube 1 Performed By: #### L AB142 ####Beauty Operator Apprentice: BEBE WINC[place] ([phone])CIERAA BARBJULIANA (SBHLAB)[address] [place] [address] TUBE NUMBER OF CEREBRAL SPINAL FLUID Tube 1 Normal [facility] Comment on above: Order Comment: Tube 1 Performed By: #### L AB142 ####Beauty Operator Apprentice: BEBE WINC[place] ([phone])CIERAA BARBKASIAN (SBHLAB)[address] WBC, CSF (MANUAL) 1 /mm3 Normal <5 [facility] Comment on above: Order Comment: Tube 1 Performed By: #### L AB142 ####Beauty Operator Apprentice: BEBE WINCHESTER ([phone])CIER[facility] BARBJULIANA (SBHLAB)[address] APPEARANCE CEREBRAL SPINAL FLUID Clear and Colorless Normal [facility] Comment on above: Performed By: #### L AB142 ####Beauty Operator Apprentice: BEBE WINC[place] ([phone])[facility] [place] (SBHLAB)[address] APPEARANCE OF SUPERNATANT CEREBRAL SPINAL FLUID Clear and Colorless Normal [facility] Comment on above: Performed By: #### L AB142 ####Beauty Operator Apprentice: BEBE WINCHE[place] ([phone])[facility] [place] (SBHLAB)[address] RBC, CSF (MANUAL) 11 /mm3 Normal [facility] Comment on above: Performed By: #### L AB142 ####Beauty Operator Apprentice: BEBE WINCHESTER ([phone])[facility] [place] (SBHLAB)[address] [place] [address] TUBE NUMBER OF CEREBRAL SPINAL FLUID Tube 4 Normal [facility] Comment on above: Performed By: #### L AB142 ####Beauty Operator Apprentice: BEBEANNA WINCHESTER ([phone])[facility] [place] (SBHLAB)[address] [place] [address] WBC, CSF (MANUAL) 4 /mm3 Normal <5 [facility] Comment on above: Performed By: #### L AB142 ####Beauty Operator Apprentice: BEBE WINCHESTER ([phone])[facility] [place] [address] Testosterone, Total / Freeon 06-22-2024 TESTOSTER,FREE 1.41 ng/dL Abnormal 0.10-0.85 [facility] Comment on above: Order Comment: Order Date: 06/09/24Order Info: 0024-1 - TESTFN Performed By: #### L 500.4050, L501.9520, L500.4100, L3100.5310, L501.9985, L506.0400 ####[facility] [address] [place], [place], [address] TESTOSTER,TOTAL 52 ng/dL Normal 13-71 [facility] Comment on above: Order Comment: Order Date: 06/09/24Order Info: 0024-1 - TESTFN Performed By: #### L 500.4050, L501.9520, L500.4100, L3100.5310, L501.9985, L506.0400 ####[facility] [address] [place], [place], [address] TESTOSTERONE,%F 2.72 Normal 0.50-2.80 [facility] Comment on above: Order Comment: Order Date: 06/09/24Order Info: 0024-1 - TESTFN Result Comment: Perf ormed at: [facility] [address] [id number] [employer] Operator: Surinder Gibson PhD, Phone: [phone] Performed at: [facility] [address] [id number] [employer] Operator: Zac Sutton MD, Phone: [phone] Performed By: #### L 500.4050, L501.9520, L500.4100, L3100.5310, L501.9985, L506.0400 ####[facility] [address] [place], [place], [address] [id number] 06-17-2024 [phone] Left message for patient regarding their lumbar [...] blood thinners or if they have questions/concerns. [facility] 36on 06-17-2024 36 Results request faxed to PCP [facility] 36 Called and spoke with patient to [...] The patient agreed and verbalized understanding. Normal [facility] 36 Please advise the patient the results of the MRI were received. Additional testing was ordered to further evaluate. An order for a lumbar puncture was placed. Normal [facility] 36 Noted Normal [facility] 36 Lmovm. Please release message to patient as written. If patient had more recent MRI please ask where it was done so that we can request records. Normal [facility] 36 Name of caller: Chasidy Contact phone number: [phone] Relationship to Patient: PCP office Provider: [facility]: [facility] Chief Complaint/Reason for Call: Chasidy called [...] hours to return their call: N/A Normal [facility] 36 Please advise the patient the last MRI brain was 2021 that I can see and it is not concerning for MS. Most recent labs were also normal. It is advised that the patient follow up with psychiatry for depression symptoms. Normal [facility] 36 S: Patient's friend Rianna called the [...] Reason for Disposition Mild depression Protocols used: [id number] Normal [facility] Brain W/WO Contraston 2024 Brain W/WO Contrast [facility] [address] [place], [place] [id number] Brain W/WO Contrast MR#: [id number] Acct: [id number] Name: ROSY RAWLS Rep #: [id number] : 1995 From: Andre Garcia PCP: Dr. Anirudh Jerez MD Status: REG CLI Study: Brain W/WO Contrast Date of Exam: 06/14/24 Exam# [id number] Ordering Dr: Cecilio Dove MD EXAM: MRI [...] Clinical and laboratory correlation suggested. Reading Location: [place] [address] CC: Dr. Anirudh Jerez MD; Dr. Cecilio Dove MD Director Of Occupational Health: Signed Normal [facility] Comprehensive Metabolic Prof ilon 06-10-2024 Albumin [Mass/Vol] 4.0 g/dL Normal 3.5-5.0 [facility] Comment on above: Order Comment: Order Date: 06/09/24Order Info: 0786-1 - CMPOrder Info: [id number] - LIPIDOrder Info: [id number] - TSHOrder Info: 3024-7 - T4F Performed By: #### L 500.4050, L501.9520, L500.4100, L3100.5310, L501.9985, L506.0400 ####[facility] [address] [place], [address] Albumin/Globulin [Mass ratio] 1.4 {ratio} Normal 0.9-2.4 [facility] Comment on above: Order Comment: Order Date: 06/09/24Order Info: 0786-1 - CMPOrder Info: [id number] - LIPIDOrder Info: 6-3 - TSHOrder Info: 3024-7 - T4F Performed By: #### L 500.4050, L501.9520, L500.4100, L3100.5310, L501.9985, L506.0400 ####[facility] [address] [place], [address] ALK PHOS 74 U/L Normal 35-104 [facility] Comment on above: Order Comment: Order Date: 06/09/24Order Info: 0786-1 - CMPOrder Info: [id number] - LIPIDOrder Info: [id number] - TSHOrder Info: 3024-7 - T4F Performed By: #### L 500.4050, L501.9520, L500.4100, L3100.5310, L501.9985, L506.0400 ####[facility] [address] [place], [address] ALT [Catalytic activity/Vol] 64 U/L High <=34 [facility] Comment on above: Order Comment: Order Date: 06/09/24Order Info: 0786-1 - CMPOrder Info: [id number] - LIPIDOrder Info: [id number] - TSHOrder Info: 3024-7 - T4F Performed By: #### L 500.4050, L501.9520, L500.4100, L3100.5310, L501.9985, L506.0400 ####[facility] [address] [place], [address] AST [Catalytic activity/Vol] 35 U/L High <=31 [facility] Comment on above: Order Comment: Order Date: 06/09/24Order Info: 86-1 - CMPOrder Info: [id number] - LIPIDOrder Info: 3 - TSHOrder Info: 3024-7 - T4F Performed By: #### L 500.4050, L501.9520, L500.4100, L3100.5310, L501.9985, L506.0400 ####[facility] [address] [place], [address] Bilirubin [Mass/Vol] 0.25 mg/dL Normal 0.00-1.30 [facility] Comment on above: Order Comment: Order Date: 06/09/24Order Info: 0786-1 - CMPOrder Info: [id number] - LIPIDOrder Info: 6-3 - TSHOrder Info: 3024-7 - T4F Performed By: #### L 500.4050, L501.9520, L500.4100, L3100.5310, L501.9985, L506.0400 ####[facility] [address] [place], [address] BUN/CRE 16.2 RATIO Normal 10-20 [facility] Comment on above: Order Comment: Order Date: 06/09/24Order Info: 0786-1 - CMPOrder Info: [id number] - LIPIDOrder Info: 6-3 - TSHOrder Info: 3024-7 - T4F Performed By: #### L 500.4050, L501.9520, L500.4100, L3100.5310, L501.9985, L506.0400 ####[facility] [address] [place], [address] Calcium [Mass/Vol] 9.4 mg/dL Normal 7.6-11.0 [facility] Comment on above: Order Comment: Order Date: 06/09/24Order Info: 86-1 - CMPOrder Info: [id number] - LIPIDOrder Info: [id number] - TSHOrder Info: 3024-7 - T4F Performed By: #### L 500.4050, L501.9520, L500.4100, L3100.5310, L501.9985, L506.0400 ####[facility] [address] [place], [address] Chloride [Moles/Vol] 104 mmol/L Normal 98-108 [facility] Comment on above: Order Comment: Order Date: 06/09/24Order Info: 86-1 - CMPOrder Info: [id number] - LIPIDOrder Info: 63 - TSHOrder Info: 3024-7 - T4F Performed By: #### L 500.4050, L501.9520, L500.4100, L3100.5310, L501.9985, L506.0400 ####[facility] [address] [place], [address] CO2 [Moles/Vol] 22.8 mmol/L Normal 21.0-32.0 [facility] Comment on above: Order Comment: Order Date: 06/09/24Order Info: 86-1 - CMPOrder Info: [id number] - LIPIDOrder Info: [id number] - TSHOrder Info: 3024-7 - T4F Performed By: #### L 500.4050, L501.9520, L500.4100, L3100.5310, L501.9985, L506.0400 ####[facility] [address] [place], [address] Creatinine [Mass/Vol] 0.84 mg/dL Normal 0.70-1.20 [facility] Comment on above: Order Comment: Order Date: 06/09/24Order Info: 0786-1 - CMPOrder Info: [id number] - LIPIDOrder Info: 3 - TSHOrder Info: 3024-7 - T4F Performed By: #### L 500.4050, L501.9520, L500.4100, L3100.5310, L501.9985, L506.0400 ####[facility] [address] [place], [address] GAP 13 Normal 5-15 [facility] Comment on above: Order Comment: Order Date: 06/09/24Order Info: 785- - CMPOrder Info: - LIPIDOrder Info: 3 - TSHOrder Info: 7 - T4F Performed By: #### L 500.4050, L501.9520, L500.4100, L3100.5310, L501.9985, L506.0400 ####[facility] [address] [place], [address] GFR/1.73 sq M.predicted among non-blacks MDRD (S/P/Bld) [Vol rate/Area] 96 mL/min/{1.73_m2} Normal >60 [facility] Comment on above: Order Comment: Order Date: 06/09/24Order Info: 07- - CMPOrder Info: - LIPIDOrder Info: 63 - TSHOrder Info: 3024-7 - T4F Result Comment: mL/m in/1.73m2 CKD-EPI Creatinine Equation (2020) Performed By: #### L 500.4050, L501.9520, L500.4100, L3100.5310, L501.9985, L506.0400 ####[facility] [address] [place], [address] Globulin (S) [Mass/Vol] 2.8 g/dL Normal 2.2-4.2 [facility] Comment on above: Order Comment: Order Date: 06/09/24Order Info: 0786-1 - CMPOrder Info: [id number] - LIPIDOrder Info: [id number] - TSHOrder Info: 3024-7 - T4F Performed By: #### L 500.4050, L501.9520, L500.4100, L3100.5310, L501.9985, L506.0400 ####[facility] [address] [place], [address] Glucose [Mass/Vol] 116 mg/dL High 70-99 [facility] Comment on above: Order Comment: Order Date: 06/09/24Order Info: 86-1 - CMPOrder Info: [id number] - LIPIDOrder Info: 3 - TSHOrder Info: 3024-7 - T4F Performed By: #### L 500.4050, L501.9520, L500.4100, L3100.5310, L501.9985, L506.0400 ####[facility] [address] [place], [address] Potassium [Moles/Vol] 4.2 mmol/L Normal 3.3-5.1 [facility] Comment on above: Order Comment: Order Date: 06/09/24Order Info: 0786-1 - CMPOrder Info: [id number] - LIPIDOrder Info: [id number] - TSHOrder Info: 3024-7 - T4F Performed By: #### L 500.4050, L501.9520, L500.4100, L3100.5310, L501.9985, L506.0400 ####[facility] [address] [place], [address] Sodium [Moles/Vol] 139 mmol/L Normal 133-145 [facility] Comment on above: Order Comment: Order Date: 06/09/24Order Info: 0786-1 - CMPOrder Info: [id number] - LIPIDOrder Info: 3 - TSHOrder Info: 3024-7 - T4F Performed By: #### L 500.4050, L501.9520, L500.4100, L3100.5310, L501.9985, L506.0400 ####[facility] [address] [place], [address] T PROT 6.8 g/dL Normal 5.9-8.4 [facility] Comment on above: Order Comment: Order Date: 06/09/24Order Info: 0786-1 - CMPOrder Info: [id number] - LIPIDOrder Info: [id number] - TSHOrder Info: 3024-7 - T4F Performed By: #### L 500.4050, L501.9520, L500.4100, L3100.5310, L501.9985, L506.0400 ####[facility] [address] [place], [address] Urea nitrogen [Mass/Vol] 14 mg/dL Normal 4-19 [facility] Comment on above: Order Comment: Order Date: 06/09/24Order Info: 0786-1 - CMPOrder Info: [id number] - LIPIDOrder Info: [id number] - TSHOrder Info: 3024-7 - T4F Performed By: #### L 500.4050, L501.9520, L500.4100, L3100.5310, L501.9985, L506.0400 ####[facility] [address] [place], [address] Hemoglobin A1con 06-10-2024 HbA1c (Bld) [Mass fraction] 6.1 % Normal <=5.6 [facility] Comment on above: Order Comment: Order Date: 06/09/24Order Info: 4548-4 - A1C Performed By: #### L 500.4050, L501.9520, L500.4100, L3100.5310, L501.9985, L506.0400 ####[facility] [address] [place], [address] L509.6001on 06-10-2024 CORTISOL 12.80 ug/dL Normal 6.02-18.40 [facility] Comment on above: Order Comment: Order Date: 06/09/24 Order Info: 785- - CMP Order Info: - LIPID Order Info: [id number] - TSH Order Info: 3023-09 - T4F Performed By: #### L 509.6001 #### [facility] [address] [place], [address] Lipid Profileon 06-10-2024 CHOL:HDL 3.94 Normal [facility] Comment on above: Order Comment: Order Date: 06/09/24Order Info: 785- - CMPOrder Info: - LIPIDOrder Info: [id number] - TSHOrder Info: 3023-09 - T4F Performed By: #### L 500.4050, L501.9520, L500.4100, L3100.5310, L501.9985, L506.0400 ####[facility] [address] [place], [address] Cholesterol [Mass/Vol] 244 mg/dL High <=200 [facility] Comment on above: Order Comment: Order Date: 06/09/24Order Info: 785-03 - CMPOrder Info: - LIPIDOrder Info: [id number] - TSHOrder Info: 3023-09 - T4F Result Comment: Chol esterol level, Desirable <200 mg/dL Borderline high cholesterol 200-239 mg/dL High cholesterol >=240 mg/dL Recommendations of the NCEP Adult Treatment Panel for the following risk-cutoff thresholds for the [place] population. Performed By: #### L 500.4050, L501.9520, L500.4100, L3100.5310, L501.9985, L506.0400 ####[facility] [address] [place], [address] Cholesterol in HDL [Mass/Vol] 62 mg/dL Normal [facility] Comment on above: Order Comment: Order Date: 06/09/24Order Info: 07- - CMPOrder Info: [id number] - LIPIDOrder Info: [id number] - TSHOrder Info: 3023-09 - T4F Result Comment: Aida onal Cholesterol Education Program (NCEP) guidelines: <40 mg/dL: Low HDL-cholesterol (major risk factor for CHD) >= 60 mg/dL: High HDL-cholesterol (negative risk factor for CHD) HDL-cholesterol is affected by a number of factors, e.g. smoking, exercise, hormones, sex and age. Performed By: #### L 500.4050, L501.9520, L500.4100, L3100.5310, L501.9985, L506.0400 ####[facility] [address] [place], [address] Cholesterol in LDL [Mass/Vol] 140 mg/dL Normal [facility] Comment on above: Order Comment: Order Date: 06/09/24Order Info: 07861 - CMPOrder Info: - LIPIDOrder Info: [id number] - TSHOrder Info: 3023-09 - T4F Result Comment: Bord epbeie=644-236 mg/dL Higher Pjux=851 mg/dL or greater Performed By: #### L 500.4050, L501.9520, L500.4100, L3100.5310, L501.9985, L506.0400 ####[facility] [address] [place], [address] Cholesterol in VLDL [Mass/Vol] 43 mg/dL High 5-40 [facility] Comment on above: Order Comment: Order Date: 06/09/24Order Info: 0786-1 - CMPOrder Info: [id number] - LIPIDOrder Info: 3 - TSHOrder Info: 3023-09 - T4F Performed By: #### L 500.4050, L501.9520, L500.4100, L3100.5310, L501.9985, L506.0400 ####[facility] [address] [place], [address] Triglyceride [Mass/Vol] 213 mg/dL High [facility] Comment on above: Order Comment: Order Date: 06/09/24Order Info: 0786-1 - CMPOrder Info: [id number] - LIPIDOrder Info: [id number] - TSHOrder Info: 3024-7 - T4F Result Comment: The drugs N-Acetylcysteine and Metamizole may falsely depress this assay. Normal range: <150 mg/dL Borderline High: 150-199 mg/dL High: 200-499 mg/dL Very High: >500 mg/dL Performed By: #### L 500.4050, L501.9520, L500.4100, L3100.5310, L501.9985, L506.0400 ####[facility] [address] [place], [place], [address] T4 Free Directon 06-10-2024 T4 FREE DIRECT 0.90 ng/dL Normal 0.76-1.46 [facility] Comment on above: Order Comment: Order Date: 06/09/24Order Info: 0786-1 - CMPOrder Info: [id number] - LIPIDOrder Info: 6-3 - TSHOrder Info: 3024-7 - T4FN Performed By: #### L 500.4050, L501.9520, L500.4100, L3100.5310, L501.9985, L506.0400 ####[facility] [address] [place], [place], [address] Thyroid Stim Hormone (TSH)on 06-10-2024 TSH 1.670 uIU/mL Normal 0.300-4.200 [facility] Comment on above: Order Comment: Order Date: 06/09/24Order Info: 0786-1 - CMPOrder Info: [id number] - LIPIDOrder Info: [id number] - TSHOrder Info: 3024-7 - T4F Performed By: #### L 500.4050, L501.9520, L500.4100, L3100.5310, L501.9985, L506.0400 ####[facility] [address] [place], [place], [address] Office Visiton 05-24-2024 Follow-up visit [id number] Rosy Rawls 1995 F Date Provider Department Center 05/24/2024 48531-HICVII, JAYE [facility] NE[facility]O P None No family history on file Level of Service:80138 [place] OFFICE/OUTPATIENT ESTABLISHED LOW MDM 20 MIN Reason for Visit and Comments: Follow-up [484857] - Intractable chronic migraine Normal [facility] Progress Noteon 05-24-2024 Progress Note [facility] Primary Care Physician: [...] is seen in the NEUROLOGY CLINIC of [facility] for complaint of headaches. Patient states [...] tablet Ta (more content not included)... Normal [facility] MR/BMS.BPon 05-17-2024 MR/BMS.BP [address], [place] [address] OFFICE VISIT Date of Service: 05/17/24 MR#: [id number] Acct: [id number] Name: ROSY RAWLS Rep #: [id number] : 1995 Provider: Dr. Hugo Liz se, DO Age/Sex: 29/F Location: [facility] [place].BP Status: Signed Intake Vital Signs 04/05/24 10:08 [...] (From Bactrim) Allergy (Verified 04/05/24 10:10) Hives [facility] Medical History (Updated 04/05/24 @ 10:06 by [...] psychotic features F33.2 05/17/24 1244 Date Hugo Cavazos Seese DO Cainignpastor Signature: Date (if applicable) CC: [facility] 36on 04-14-2024 36 Requested Prescriptions Signed Prescriptions Disp Refills naratriptan (Amerge) 2.5 MG tablet 9 tablet 3 Sig: Take 1 tablet (2.5 mg) by mouth Once as needed for migraine (may repeat x1). Authorizing Provider: JAYE BOWLING [facility] 36 LMOVAxelaCare released message to patient as written. [facility] 36 Please inquire as to if the patient has tried the Reyvow sample. She can use it today if not. The patient can also use the Ajovy injection today. [facility] 36 Name of caller: Rosy Contact phone number: [phone] Relationship to Patient: patient Provider: [facility]: Neuro Chief Complaint/Reason for Call: Pt states the medication she was just prescribed on 04/11/24 has not been helping her with headaches. Please advise. Best time of day caller can be reached: any Patient advised that office/PCP has 24-48 business hours to return their call: N/A [facility] C-reactive proteinon 025 CRP [Mass/Vol] 4.1 mg/L [facility] 8.[facility] mg/L [facility] No Panel Informationon 04-12 [facility] rate, kolby villagomez 04-12-2024 ESR (Bld) [Velocity] 2 mm/h < OR = 20 [facility] Office Visiton 04-11-2024 Follow-up visit [id number] Rosy Rawls 1995 F Date Provider Department Center 04/11/2024 42034-VXETVOJAYE BOWLING [facility] NEURO P None No family history on file Level of Service:01469 MA OFFICE/OUTPATIENT ESTABLISHED LOW MDM 20 MIN Reason for Visit and Comments: Follow-up [389750] Migraine [060212] - Worsening over last 2 weeks Normal [facility] Progress Noteon 04-11-2024 Progress Note [facility] Primary Care Physician: [...] is seen in the NEUROLOGY CLINIC of [facility] for complaint of headaches. Patient states [...] evening. melatonin 5 (more content not included)... [facility] MR/BMS.BP 04-05-2024 MR/BMS.BP [address], [place] [address] OFFICE VISIT Date of Service: 04/05/24 MR#: [id number] Acct: [id number] Name: ROSY RAWLS Rep #: [id number] : 1995 Provider: Dr. Hugo Liz se, Age/Sex: 29/F Location: [facility] [place].BP Status: Signed Intake Vital Signs 01/14/23 00:17 [...] with helium. Patients did take her [facility] for psychiatric admission which she states was [...] talked to parents since October. Went to [facility] and was doing well in IOP. States that she stopped smoking marijuana and was very irritable and was asked to not come back. Rodessa that her issues were minimized after this [...] having bl (more content not included)... Normal [facility] 36on 02-15-2024 36 Requested Prescriptions Signed Prescriptions Disp Refills fremanezumab (Ajovy) 225 MG/1.5ML auto-injector 4.5 mL 3 Sig: Inject 1 Pen (225 mg) under the skin every 30 (thirty) days. Authorizing Provider: JAYE BOWLING [facility] 36 [facility] has obtained approved for Ajovy and pended Rx. Please route to [facility]. [facility] 36on 02-12-2024 36 I can print off this form. I just want to double check that this isnt something [facility] helps with. Patient is requesting TEVA rom gets filled out to help pay for Ajovy. [facility] 36 Name of caller: Rosy Contact phone number: [phone] Relationship to Patient: patient Provider: [facility]: [facility] Chief Complaint/Reason for Call: Pt [facility] who advised that they have not been able to get in contact with anyone at the office. Pt states that an attempt was even made today. Pt states she was advised that the form can be found and downloaded off of their website and faxed back to them for processing. Pt provided website [employer] and fax# [phone]. Pt states she would like to be notified once this has been completed. Pt states she has chronic migraines and really needs for this to be completed as soon as possible. Please review. Best time of day caller can be reached: any Patient advised that office/PCP has 24-48 business hours to return their call: Yes [facility] 36on 02-03-2024 36 Called and left message with [employer]. Will provide information once they call back [place] [address]on 02-01-2024 36 Name of caller: Rosy Contact phone number: [phone] Relationship to Patient: patient Provider: [facility]: Neuro Chief Complaint/Reason for Call: Rosy said that [facility] called to see about the forms and to discuss the patient. Non one answered or responded. She would like a call to the [facility] at [phone] so she can be set up. Please advise. Best time of day caller can be reached: any Patient advised that office/PCP has 24-48 business hours to return their call: Yes [place] [address]on 01-11-2024 36 Noted. [facility] 36 FYI: Name of caller: Rosy Contact phone number: [phone] Relationship to Patient: patient Provider: SKIP [facility]: [facility] Chief Complaint/Reason for Call: Patient states that her insurance will no longer cover Ajovy and she is in the middle of the try and fail stage currently trying Emgality, which is not working at all. Patient states that instead of going three months in pain to complete the try and fail medications she would like to sign up with [facility] to get payment assistance for the Ajovy since it worked so well. Patient states that a [facility] independent sales representative will be reaching out to the office to request an active prescription. Please advise. Best time of day caller can be reached: Any Patient advised that office/PCP has 24-48 business hours to return their call: No Normal [facility] No Panel InformationOrdered By: Oj Li on 09-16-2023 P [place] 57 degrees [employer] Phone: MA Interval 147 ms [employer] Phone: QRS [place] 60 degrees [employer] Phone: QRSD Interval 69 ms [employer] Phone: QT Interval 346 ms [place] [employer] Phone: QTC Interval 442 ms [employer] Work Phone: T Wave [place] 32 degrees [employer] Phone: [place] [employer] Phone: No Panel Informationon 09-15 Sinus rhythm Electronically Signed On 09-16-2023 03:09:03 EDT by Oj Li CV Oj Gilmore MD - 09/16/2023 IMPRESSION: Sinus rhythm Electronically Signed On 09-16-2023 03:09:03 EDT by Oj Li [place] Vital signsOrdered By: Oj Li on 09-16-2023 Heart rate 98 /min bpm [employer] Phone: CBC W Auto Differential pane l (Bld)Ordered By: Janna Nixon on 09-15-2023 Basophils (Bld) [#/Vol] 0.0 10*3/uL 0.0 - 0.2 10*3/uL [place] Basophils/100 WBC (Bld) 0.3 % 0.0 - 2.0 % [facility] Eosinophils (Bld) [#/Vol] 0.1 10*3/uL 0. 0 - 0.5 10*3/uL [facility] Eosinophils/100 WBC (Bld) 0.8 % 0.0 - 6.0 % [facility] Erythrocyte distribution width (RBC) [Ratio] 12.3 % 11.5 - 15.0 % [facility] Hematocrit (Bld) [Volume fraction] 40.6 % 35.0 - 47.0 % [facility] Hemoglobin (Bld) [Mass/Vol] 14.3 g/dL 11.7 - 16.0 g/dL [facility] Immature granulocytes (Bld) [#/Vol] 0.0 10*3/uL NINF - 0.1 10*3/uL [facility] Immature granulocytes/100 WBC (Bld) 0.2 % 0.0 - 2.0 % [facility] Interpretation and review of laboratory results Normal [facility] th Lymphocytes (Bld) [#/Vol] 3.1 10*3/uL 1. 0 - 4.3 10*3/uL [facility] Lymphocytes/100 WBC (Bld) 31.1 % 15 .0 - 45.0 % [facility] MCH (RBC) [Entitic mass] 30.5 pg 26. 0 - 34.0 pg [facility] MCHC (RBC) [Mass/Vol] 35.2 % 30.5 - 36.0 % [facility] MCV (RBC) [Entitic vol] 86.6 fL 77.0 - 99.0 fL [facility] Monocytes (Bld) [#/Vol] 0.9 10*3/uL 0.0 - 0.9 10*3/uL [facility] Monocytes/100 WBC (Bld) 8.8 % 5.0 - 13.0 % [facility] Neutrophils (Bld) [#/Vol] 5.8 10*3/uL 1. 8 - 7.5 10*3/uL [facility] Neutrophils/100 WBC (Bld) 58.8 % 38 .0 - 82.0 % [facility] Nucleated RBC/100 WBC (Bld) [Ratio] 0.0 % [facility] Platelet mean volume (Bld) [Entitic vol] 9.4 fL 9.0 - 12.7 fL [facility] Platelets (Bld) [#/Vol] 234 10*3/uL 140 - 440 10*3/uL [facility] RBC (Bld) [#/Vol] 4.69 10*6/uL 3.80 - 5.2 0 10*6/uL [facility] WBC (Bld) [#/Vol] 9.8 10*3/uL 3.6 - 10.7 10*3/uL [facility] Comprehensive metabolic 1998 panelon 09-15-2023 Albumin [Mass/Vol] 4.5 g/dL 3.5 - 5.0 g/dL [facility] ALP [Catalytic activity/Vol] 61 U/L 38 - 126 U/L [facility] ALT [Catalytic activity/Vol] 47 U/L High 0 - 34 U/L [facility] Anion gap [Moles/Vol] 11 mmol/L 3 - 13 mmol/L [facility] AST [Catalytic activity/Vol] 43 U/L 15 - 46 U/L [facility] Bilirubin [Mass/Vol] 1.0 mg/dL 0.2 - 1 .3 mg/dL [facility] Calcium [Mass/Vol] 9.7 mg/dL 8.4 - 10. 4 mg/dL [facility] Chloride [Moles/Vol] 107 mmol/L 98 - 10 7 mmol/L [facility] CO2 [Moles/Vol] 17 mmol/L Low 22 - 30 mmol/L [facility] Creatinine [Mass/Vol] 0.80 mg/dL 0.52 - 1.04 mg/dL [facility] GFR/1.73 sq M.predicted MDRD (S/P/Bld) [Vol rate/Area] - PINF [facility] Comment on above: Calculation based on the Chronic Kidney Disease Epidemiology Collaboration (CKD-EPI) equation refit without adjustment for race Glucose [Mass/Vol] 98 mg/dL 70 - 100 mg/dL [facility] Interpretation and review of laboratory results Abnormal [facility] th Potassium [Moles/Vol] 3.9 mmol/L 3.5 - 5.1 mmol/L [facility] Protein [Mass/Vol] 7.7 g/dL 6.3 - 8.2 g/dL [facility] Sodium [Moles/Vol] 136 mmol/L 135 - 145 mmol/L [facility] Urea nitrogen [Mass/Vol] 9 mg/dL 7 - 17 mg/d L [facility] Ethanol (Bld) [Mass/Vol]on 0 09-15-2023 Ethanol [Mass/Vol] g/dL 0.000 - 0.010 g/dL [facility] Interpretation and review of laboratory results Normal [facility] - Chemistry and C hemistry - challengeOrdered By: Georgette Jenkins on 09-15-2023 Beta HCG ( test) Ql Negative Negative [facility] Comment on above: Please note: Very di lute urine specimens, as indicated by a low specific gravity, may not contain independent sales representative levels of hCG. If is still suspected, a first morning urine specimen should be collected 48 hours later and tested. Beta HCG ( test) Ql (U) is the most common reason for HCG in urine, although choriocarcinoma, hydatidiform mole, and certain nontrophoblastic malignancies also result in detectable urinary HCG levels. Sensitivity = 20mIU/mL. [facility] Laboratory - Drug toxicology Ordered By: Lisa Srinivasan on 09-15-2023 Amphetamines Screen method >1000 ng/mL Ql (U) Negative [facility] Barbiturates Screen method >200 ng/mL Ql (U) Negative [facility] H ealth Benzodiazepines Ql (U) Negative [facility] Methadone Screen Ql (U) Negative [facility] Opiates Screen Ql (U) Negative [facility] oxyCODONE Ql (U) Negative [facility] Phencyclidine Ql (U) Negative [facility] - Microbiology an d Antimicrobial susceptibilityOrdered By: Nichole Feng on 09-15-2023 SARS-CoV-2 (COVID-19) Ag IA.rapid Ql (Resp) Negative Negative [facility] Comment on above: A negative result do es not rule out the possibility of SARS-CoV-2 infection. NAAT-based methods should be considered for symptomatic patients presenting greater than seven days after onset of symptoms. Method: Lateral flow immunoassay. Fact sheets for healthcare providers and patients can be found at the following sites: https://www.fda.gov/media/296503/download https://www.fda.gov/media/042053/download No Panel InformationOrdered By: Lisa Srinivasan on 09-15-2023 COCAINE METAB. SCREEN Negative [facility] The expected value for all of the [...] is needed, request confirmation under separate order. [facility] No Panel InformationOrdered By: Georgette Jenkins on 09-15-2023 [facility] No Panel Informationon 09-14 [facility] SARS-CoV-2 (COVID-19) Ag IA. rapid Ql (Resp)Ordered By: Nichole Feng on 09-15-2023 Interpretation and review of laboratory results Normal [facility] Urinalysis complete panel (U )Ordered By: Sofía Torres on 09-15-2023 Bacteria LM.HPF (Urine sed) [#/Area] Few Abnormal Negative /HPF [facility] Bilirubin Ql (U) Negative Negative mg/dL [facility] Clarity (U) Turbid Abnormal Clear [facility] Color (U) Yellow Lt. Yellow [facility] Epithelial cells.squamous LM.HPF (Urine sed) [#/Area] 6-10 Abnormal [facility] Glucose Ql (U) Normal Normal (<70) mg/dL [facility] Hemoglobin Ql (U) Negative Negative mg/dL [facility] Interpretation and review of laboratory results Abnormal [facility] Ketones (U) [Mass/Vol] 80 mg/dL Abnormal Negative [facility] Leukocyte esterase Test strip Ql (U) 250 Abnormal Negative Natalio/uL [facility] Mucus LM.HPF (Urine sed) [#/Area] Few Negative /LPF [facility] Nitrite Ql (U) Negative Negative [facility] pH (U) 8.0 [pH] 5.0 - 8.0 pH [facility] Protein (U) [Mass/Vol] 50 mg/dL Abnormal Negative [facility] RBC LM.HPF (Urine sed) [#/Area] 11-25 Abnormal [facility] Specific gravity (U) [Rel density] 1.025 1.005 - 1.030 [facility] Urobilinogen (U) [Mass/Vol] Normal Normal (0-1) mg/dL [facility] WBC LM.HPF (Urine sed) [#/Area] 3-5 [facility] Neisseria gonorrhoeae genita l PCROrdered By: Anirudh Jerez on 03-17-2023 N. gonorrhoeae DNA KALLIE+probe Ql (Genital specimen) [facility] No Panel InformationOrdered By: Anirudh Jerez on 03-17-2023 Chlamydia trachomatis (PCR) [facility] Trichomonas vaginalis DNA [facility] Comprehensive metabolic 2000 panelon 01-28-2023 Albumin [Mass/Vol] 4.2 g/dL Normal 3.9-4.9 [facility] Comment on above: Order Comment: Speci men Type: BLOOD SPECIMENOrdering Facility: [facility] Address: [address] [place] [address] Performed By: #### 2 4323-8 ####[facility] LABIA [id number] [place] [address] [place] ALP [Catalytic activity/Vol] 61 U/L Normal 34-123 [facility] Comment on above: Order Comment: Speci men Type: BLOOD SPECIMENOrdering Facility: [facility] Address: [address] [place] [address] Performed By: #### 2 4323-8 ####[facility] LABCLIA [id number] [address] [address] [place] ALT [Catalytic activity/Vol] 19 U/L Normal 7-38 [facility] Comment on above: Order Comment: Speci men Type: BLOOD SPECIMENOrdering Facility: [facility] Address: [address] [place] [address] Performed By: #### 2 4323-8 ####[facility] LABCLIA [id number] [place] [id number] [place] Anion gap [Moles/Vol] 13 mmol/L Normal 9-18 [facility] Comment on above: Order Comment: Speci men Type: BLOOD SPECIMENOrdering Facility: [facility] Address: [facility] [place] [address] Performed By: #### 2 4323-8 ####[facility] LABCLIA [id number] [place] [address] [place] AST [Catalytic activity/Vol] 14 U/L Normal 13-35 [facility] Comment on above: Order Comment: Speci men Type: BLOOD SPECIMENOrdering Facility: [facility] Address: [facility] [place] [address] Performed By: #### 2 4323-8 ####[facility] LABCLIA [id number] [place] [address] [place] Bilirubin [Mass/Vol] 0.2 mg/dL Normal 0.2-1.3 [facility] Comment on above: Order Comment: Speci men Type: BLOOD SPECIMENOrdering Facility: [facility] Address: [facility] [place] [address] Performed By: #### 2 4323-8 ####[facility] LABCLIA [id number] [place] [address] [place] Calcium [Mass/Vol] 9.8 mg/dL Normal 8.5-10.2 [facility] Comment on above: Order Comment: Speci men Type: BLOOD SPECIMENOrdering Facility: [facility] Address: [facility] [place] [address] Performed By: #### 2 4323-8 ####[facility] LABCLIA [id number] [address] [address] [place] Chloride [Moles/Vol] 103 mmol/L Normal 97-105 [facility] Comment on above: Order Comment: Speci men Type: BLOOD SPECIMENOrdering Facility: [facility] Address: [address] [place], [place] [address] [address] Performed By: #### 2 4323-8 ####[facility] LABIA [id number] [address] [address] [place] CO2 [Moles/Vol] 19 mmol/L Low 22-30 [facility] Comment on above: Order Comment: Speci men Type: BLOOD SPECIMENOrdering Facility: [facility] Address: [address] [place] [address] Performed By: #### 2 4323-8 ####[facility] [id number] [place] [id number] [place] Creatinine [Mass/Vol] 0.88 mg/dL Normal 0.58-0.96 [facility] Comment on above: Order Comment: Speci men Type: BLOOD SPECIMENOrdering Facility: [facility] Address: [address] [place] [address] Performed By: #### 2 4323-8 ####[facility] [id number] [address] Creatinine and Glomerular filtration rate.predicted panel (S/P/Bld) 93 mL/min/1.73m??? Normal >=60 [facility] Comment on above: Order Comment: Speci men Type: BLOOD SPECIMENOrdering Facility: [facility] Address: [address] [place] [address] Result Comment: Loren mated Glomerular Filtration Rate [...] actual GFR. Performed By: #### 2 4323-8 ####[facility] LABCLIA [id number] [address] [address] [place] Glucose [Mass/Vol] 109 mg/dL High 74-99 [facility] Comment on above: Order Comment: Speci men Type: BLOOD SPECIMENOrdering Facility: [facility] Address: [address] [place] [address] Result Comment: The [place] [employer] Association (ADA) provides guidance for cutoff [...] Standards of Medical Care in Diabetes 2016, [place] [employer]. Diabetes Care. 2016.39(Suppl 1). Performed By: #### 2 4323-8 ####[facility] LABIA [id number] [place] [address] [place] Potassium [Moles/Vol] 4.9 mmol/L Normal 3.7-5.1 [facility] Comment on above: Order Comment: Speci men Type: BLOOD SPECIMENOrdering Facility: [facility] Address: [address] [place] [address] Performed By: #### 2 4323-8 ####[facility] LABIA [id number] [address] [address] [place] Protein [Mass/Vol] 7.3 g/dL Normal 6.3-8.0 [facility] Comment on above: Order Comment: Speci men Type: BLOOD SPECIMENOrdering Facility: [facility] Address: [address] [place] [address] Performed By: #### 2 4323-8 ####[facility] LABCLIA [id number] [place] [id number] [place] Sodium [Moles/Vol] 135 mmol/L Low 136-144 [facility] Comment on above: Order Comment: Speci men Type: BLOOD SPECIMENOrdering Facility: [facility] Address: [address] [place] [address] Performed By: #### 2 4323-8 ####[facility] LABCLIA [id number] [place] [address] [place] Urea nitrogen [Mass/Vol] 19 mg/dL Normal 7-21 [facility] Comment on above: Order Comment: Speci men Type: BLOOD SPECIMENOrdering Facility: [facility] Address: [address] [place] [address] Performed By: #### 2 4323-8 ####[facility] LABCLIA [id number] [place] [address] [place] Absolute lymphocyte countOrd ered By: Jonathan Ernst on 01-14-2023 Lymphocytes Auto (Unsp spec) [#/Vol] 4.09 10*3/uL 0.83-4.51 [facility] Basophil percentageOrdered B y: Jonathan Ernst on 01-14-2023 Basophils/100 WBC (Bld) 0.4 % 0-1 [facility] Chloride [Moles/Vol] 111 mmol/L 98-107 [facility] Eosinophils/100 WBC (Bld) 1.1 % 0-5 [facility] Glucose [Mass/Vol] 132 mg/dL 74-106 [facility] Comment on above: Fasting Glucose resu lt greater than or equal to 126 mg/dL suggests DIABETES MELLITUS per A.D.A. criteria. Neutrophils (Bld) [#/Vol] 8.9 10*3/uL 2.0-7.7 [facility] Neutrophils/100 WBC (Bld) 61.6 % 47-70 [facility] Potassium [Moles/Vol] 3.7 mmol/L 3.5-5.1 [facility] Sodium [Moles/Vol] 140 mmol/L 136-145 [facility] WBC (Bld) [#/Vol] 14.5 10*3/uL 4.4-11.0 [facility] Blood erythrocytes count (nu mber/volume)Ordered By: Jonathan Ernst on 01-14-2023 RBC (Bld) [#/Vol] 4.61 10*6/uL 4.2-5.4 [facility] Blood hemoglobin measurement (mass/volume)Ordered By: Jonathan Ernst on 01-14-2023 Hemoglobin (Bld) [Mass/Vol] 14.2 g/dL 12.0-15.0 [facility] Blood lymphocytes/100 leukoc ytesOrdered By: Jonathan Ernst on 01-14-2023 Lymphocytes/100 WBC (Bld) 28.2 % 19-41 [facility] Blood monocytes/100 leukocyt esOrdered By: Jonathan Ernst on 01-14-2023 Monocytes/100 WBC (Bld) 8.4 % 0-10 [facility] Blood platelet mean volumeOr dered By: Jonathan Ernst on 01-14-2023 Platelet mean volume (Bld) [Entitic vol] 9.9 fL 6.2-12.0 [facility] Determination of erythrocyte mean corpuscular volume (MCV)Ordered By: Jonathan Ernst on 01-14-2023 MCV (RBC) [Entitic vol] 90.7 fL 81-99 [facility] Hematocrit Auto (Bld) [Volum e fraction]Ordered By: Jonathan Ernst on 01-14-2023 Hematocrit (Bld) [Volume fraction] 41.8 % 37-47 [facility] - Chemistry and C hemistry - challengeOrdered By: Jonathan Ernst on 01-14-2023 CO2 [Moles/Vol] 23.0 mmol/L 21.0-32.0 [facility] Urea nitrogen/Creatinine [Mass ratio] 19.9 mg/mg 10-20 [facility] - Hematology and Cell countsOrdered By: Jonathan Ernst on 01-14-2023 Erythrocyte distribution width (RBC) [Entitic vol] 44.7 fL 35.1-43.9 [facility] Erythrocyte distribution width (RBC) [Ratio] 13.3 % 11.6-14.6 [facility] Immature granulocytes/100 WBC (Bld) 0.300 % 0.0-0.9 [facility] Comment on above: IG% - Immature Granu locytes (promyelocytes, myelocytes and metamyelocytes) > 1% indicates that a LEFT SHIFT is Present. MCH (RBC) [Entitic mass] 30.8 pg 27.0-32.0 [facility] Nucleated RBC/100 WBC (Bld) [Ratio] 0 % 0-5 [facility] MCHC Auto (RBC) [Mass/Vol]Or dered By: Jonathan Ernst on 01-14-2023 MCHC (RBC) [Mass/Vol] 34.0 g/dL 32-36 [facility] No Panel InformationOrdered By: Jonathan Ernst on 01-14-2023 Estimated Creatinine Clearance Calc 98.13 ml/min [facility] Estimated GFR (MDRD) Amer 96 mL/min >60 [facility] Comment on above: GFR Calc Estimated GFR (MDRD) Non-Af Amer 79 mL/min >60 [facility] Comment on above: Non- GFR Calc Platelets bldOrdered By: Osbaldo Ernst on 01-14-2023 Platelets (Bld) [#/Vol] 227 10*3/uL 150-450 [facility] Serum or plasma calcium karthikeyan urement (mass/volume)Ordered By: Jonathan Ernst on 01-14-2023 Calcium [Mass/Vol] 9.2 mg/dL 8.5-10.1 [facility] Serum or plasma creatinine m easurement (mass/volume)Ordered By: Jonathan Ernst on 01-14-2023 Creatinine [Mass/Vol] 0.90 mg/dL 0.55-1.02 [facility] Comment on above: The validity of the calculated GFR & GFRAA in patients over 70 years has not been determined. Clinical correlation is essential. Serum or plasma urea nitroge n measurement (mass/volume)Ordered By: Jonathan Ernst on 01-14-2023 Urea nitrogen [Mass/Vol] 18 mg/dL 7-18 [facility] Thin prep Papanicolaou smear with manual screeningOrdered By: Jonathan Ernst on 01-14-2023 Thin prep Papanicolaou smear with manual screening 6 5-15 [facility] CNOVon 08-15-2022 CNOV Office Visit (UCWSTR) RAWLSROSY ([id number]) 1995 F Date Time Provider Department 08/15/22 8:45 AM [facility] During your visit today, we recorded the following information about you: Temperature Pulse Respiration Blood pressure 98.2 degrees 117/minute 18/minute 130/78 Satni Colunga APRN.MILITARY COMMUNICATIONS SPECIALIST 08/15/2022 10:14 AM Signed Subjective HPI Nontoxic-appearing [...] with primary (more content not included)... Normal [facility] XR ANKLE 3V AP/LAT/OBL LTon 08-15-2022 XR [...] Soft tissue swelling along the lateral malleolus. Director Of Occupational Health: [facility] Transcribe Date/Time: Aug 15 2022 9:47A Dictated by : CAMERON ROBLEDO MD This examination was interpreted and the report reviewed and electronically signed by: CAMERON ROBLEDO MD on Aug 15 2022 9:49AM EST [id number] Normal [facility] XR Ankle - left AP and Later al and obliqueon 08-15-2022 IMPRESSION: Soft tissue swelling along the lateral malleolus. Director Of Occupational Health: [facility] Transcribe Date/Time: Aug 15 2022 9:47A Dictated [...] the lateral malleolus. DIVISION OF RADIOLOGY Provider, [facility] - 08/15/2022 * * *Final Report* * [...] Soft tissue swelling along the lateral malleolus. Director Of Occupational Health: JESUS Transcribe Date/Time: Aug 15 2022 9:47A Dictated by : CAMERON ROBLEDO MD This examination was interpreted and the report reviewed and electronically signed by: CAMERON ROBLEDO MD on Aug 15 2022 9:49AM EST [facility] Radiology Study observation (narrative) [facility] XR Ankle - left AP and Later al and obliqueOrdered By: [facility]cf Provider on 08-15-2022 [facility] Estradiol SerPl-mCncon 07-14 E2 [Mass/Vol] pg/mL Normal [facility] Comment on above: Order Comment: Speci men Type: BLOOD SPECIMENOrdering Facility: Myron Vievros DO Address: [address] [place] [address] Result Comment: This test is not suitable [...] 3243 pg/mL Second trimester : 1561 to 56008 pg/mL Third trimester : 8285 to >42316 pg/mL Post-menopausal Estradiol reference range: < 41 pg/mL Reference: 1. Estradiol - E2 (Estradiol III) [package insert V 3.0 Faroese]. [facility], [place], [place], August 2015. Performed By: #### 2 243-4, 3024-7, 2839-9, 3051-0 ####[facility] [id number] [place] [address] [place] Progest SerPl-mCncon 023 Progesterone [Mass/Vol] ng/mL Normal See comment [facility] Comment on above: Order Comment: Speci men Type: BLOOD SPECIMENOrdering Facility: Myron Viveros DO Address: [address] [place] [address] Result Comment: Mens trual Cycle Progesterone Reference Ranges: Follicular: <1.0 ng/mL Ovulation: <12.1 ng/mL Luteal: 1.8 to 23.9 ng/mL. Progesterone Reference Ranges vary by gestational period: First Trimester: 11.0 to 44.3 ng/mL Second Trimester: 25.4 to 83.3 ng/mL Third Trimester: 58.7 to 214 ng/mL Post menopausal Progesterone: <0.5 ng/mL Reference: 1. Progesterone (Progesterone III) [package insert V 1.0 Faroese]. [facility], [place], [place]. December 2014. Performed By: #### 2 243-4, 3024-7, 28399, 3051-0 ####[facility] [id number] [place] [address] [place] T3Free SerPl-mCncon 07-15-19 23 Free T3 [Mass/Vol] 3.3 pg/mL Normal 2.3-4.1 [facility] Comment on above: Order Comment: Speci men Type: BLOOD SPECIMENOrdering Facility: Myron Viveros DO Address: [address] [place] [address] Performed By: #### 2 243-4, 3024-7, 2830-9, 3051-0 ####[facility] [id number] [place] [address] [place] T4 Free SerPl-mCncon 023 Free T4 [Mass/Vol] 1.2 ng/dL Normal 0.9-1.7 [facility] Comment on above: Order Comment: Speci men Type: BLOOD SPECIMENOrdering Facility: Myron Viveros DO Address: [address] [place] [address] Performed By: #### 2 243-4, 3024-7, 2839-9, 3051-0 ####[facility]IA [id number] [place] [address] [place] Testost SerPl-mCncon 023 Testosterone [Mass/Vol] ng/dL Normal <40 [facility] Comment on above: Order Comment: Violet bonilla Type: BLOOD SPECIMEN Ordering Facility: Myron Viveros DO Address: [address] [place] [address] Result Comment: Resu lt rechecked. Performed By: #### 2 986-8 #### [facility] CLIA [id number] [address] [place] [address] [place] Estradiol SerPl-mCncon 05-20 E2 [Mass/Vol] pg/mL Normal [facility] Comment on above: Order Comment: Violet bonilla [...] 3243 pg/mL Second trimester : 1561 to 60764 pg/mL Third trimester : 8285 to >22096 pg/mL Post-menopausal Estradiol reference range: < 41 pg/mL Reference: 1. Estradiol - E2 (Estradiol III) [package insert V 3.0 Faroese]. [facility], [place], [place], August 2015. Performed By: #### 3 024-7, 2839-9, 2243-4, 3051-0 #### [facility] CLIA [id number] [address] [place] [address] [place] Progest SerPl-mCncon 023 Progesterone [Mass/Vol] 0.2 ng/mL Normal See comment [facility] Comment on above: Order Comment: Violet bonilla [...] Progesterone (Progesterone III) [package insert V 1.0 Faroese]. [facility], [place], [place]. December 2014. Performed By: #### 3 024-7, 2839-9, 2243-4, 3051-0 #### [facility] CLIA [id number] [address] [place] [address] [place] T3Free SerPl-mCncon 05-20-19 23 Free T3 [Mass/Vol] 3.4 pg/mL Normal 2.3-4.1 [facility] Comment on above: Order Comment: Violet bonilla Type: BLOOD SPECIMEN Ordering Facility: External Submitter Address: , , Performed By: #### 3 024-7, 2839-9, 2242-, 305-0 #### [facility] CLIA [id number] [address] [place] [address] [place] T4 Free SerPl-mCncon 023 Free T4 [Mass/Vol] 1.1 ng/dL Normal 0.9-1.7 [facility] Comment on above: Order Comment: Violet bonilla Type: BLOOD SPECIMEN Ordering Facility: External Submitter Address: , , Performed By: #### 3 024-7, 2839-9, 2242-4, 305-0 #### [facility] CLIA [id number] [address] [place] [address] [place] TSH SerPl-aCncon 05-20-2022 TSH Qn 1.030 m[IU]/L Normal 0.270-4.200 [facility] Comment on above: Order Comment: Violet bonilla [...] Function tests in . Thyroid, 2019:29:3:412-420. Ponce Coe, et al. 2017 Guidelines of the [place] Thyroid Association for the Diagnosis and Management of Thyroid Disease during and the . Thyroid, 2017:27:3:315-389. Performed By: #### 3 016-3, 2986-8 ####[facility]IA [id number] [address] [address] [place] Testost SerPl-mCncon 05-20- 023 Testosterone [Mass/Vol] 20 ng/dL Normal <40 [facility] Comment on above: Order Comment: Speci men Type: BLOOD SPECIMEN Ordering Facility: External Submitter Address: , , Performed By: #### 3 016-3, 2986-8 #### [facility] CLIA [id number] [address] STATES OF [facility] US THYROID/PARATHYROIDon US THYROID/PARATHYROID * * *Final Report * * * DATE OF EXAM: Feb 28 2022 10:21AM [facility] 1048 - US THYROID/PARATHYROID / PROCEDURE REASON: [...] 2 points Echogenicity: Hypoechoic, 2 points Shape: Mnchl-rcqu-glxf, 0 points Margin: Smooth, 0 points Echogenic [...] 2 points Echogenicity: Hypoechoic, 2 points Shape: Trviv-ollp-oxvx, 0 points Margin: Smooth, 0 points Echogenic [...] not consider stability or previous biopsy results. Director Of Occupational Health: JESUS Transcribe Date/Time: Feb 28 2022 5:54P Dictated by : CAMERON ROBLEDO MD This examination was interpreted and the report reviewed and electronically signed by: CAMERON ROBLEDO MD on Feb 28 2022 5:57PM EST [id number] CN Normal [facility] E2 [Mass/Vol] pg/mL Normal [facility] Comment on above: Order Comment: Speci men Type: BLOOD SPECIMENOrdering Facility: [facility] Address: [address] [place], [place] [address] Result Comment: This test is not suitable [...] 3243 pg/mL Second trimester : 1561 to 19251 pg/mL Third trimester : 8285 to >71938 pg/mL Post-menopausal Estradiol reference range: < 41 pg/mL Reference: 1. Estradiol - E2 (Estradiol III) [package insert V 3.0 Faroese]. [facility], [place], [place], August 2015. Performed By: #### 2 243-4, 3051-0, 2839-9, 302-7 ####[facility] LABIA [id number] [address] [address] [place] Progest SerPl-mCncon 022 Progesterone [Mass/Vol] 0.3 ng/mL Normal See comment [facility] Comment on above: Order Comment: Speci men Type: BLOOD SPECIMENOrdering Facility: [facility] Address: [address] [place] [address] Result Comment: Mens trual Cycle Progesterone Reference Ranges: Follicular: <1.0 ng/mL Ovulation: <12.1 ng/mL Luteal: 1.8 to 23.9 ng/mL. Progesterone Reference Ranges vary by gestational period: First Trimester: 11.0 to 44.3 ng/mL Second Trimester: 25.4 to 83.3 ng/mL Third Trimester: 58.7 to 214 ng/mL Post menopausal Progesterone: <0.5 ng/mL Reference: 1. Progesterone (Progesterone III) [package insert V 1.0 Faroese]. [facility], [place], [place]. December 2014. Performed By: #### 2 243-4, 3051-0, 283-9, 302-7 ####[facility]IA [id number] [address] [address] [place] T3Free SerPl-mCncon 02-27-20 22 Free T3 [Mass/Vol] 4.1 pg/mL Normal 2.3-4.1 [facility] Comment on above: Order Comment: Speci men Type: BLOOD SPECIMENOrdering Facility: [facility] Address: [address] [place] [address] Performed By: #### 2 243-4, 3051-0, 2839-9, 3024-7 ####[facility]IA [id number] [address] [address] [place] T4 Free SerPl-mCncon 022 Free T4 [Mass/Vol] 1.0 ng/dL Normal 0.9-1.7 [facility] Comment on above: Order Comment: Speci men Type: BLOOD SPECIMENOrdering Facility: [facility] Address: [address] [place] [address] Performed By: #### 2 243-4, 3051-0, 2839-9, 3024-7 ####[facility] [id number] [place] [address] [place] TSH SerPl-aCncon 02-26-2022 TSH Qn 0.288 m[IU]/L Normal 0.270-4.200 [facility] Comment on above: Order Comment: Speci men Type: BLOOD SPECIMENOrdering Facility: [facility] Address: [address] [place] [address] Result Comment: If t he patient is , TSH reference range varies by gestational period: First Trimester (weeks 9-12): 0.180-2.990 mIU/L Second Trimester: 0.110-3.980 mIU/L Third Trimester: 0.480-4.710 mIU/L Bentley Cavazos et al. A Practical Approach for the Verifications and Determination of Site- and Trimester-Specific Reference Intervals for Thyroid Function tests in . Thyroid, 2019:29:3:412-420. Ponce Coe, et al. 2017 Guidelines of the [place] Thyroid Association for the Diagnosis and Management of Thyroid Disease during and the . Thyroid, 2017:27:3:315-389. Performed By: #### 2 986-8, 3016-3 ####[facility]CLIA [id number] [place] [id number] [place] Testost SerPl-mCncon 022 Testosterone [Mass/Vol] 19 ng/dL Normal <40 [facility] Comment on above: Order Comment: Speci men Type: BLOOD SPECIMENOrdering Facility: [facility] Address: [address] [place] [address] Performed By: #### 2 986-8, 3016-3 ####[facility]CLIA [id number] [place] [address] [place] MRI BRAIN W/O [...] 12/23/2021 3:19:16 PM Ordering Provider: BRIA Christy [facility] ([place]) Basic Metabolic Panelon 12-0 Anion gap 13 mmol/L Normal [facility] Comment on above: Performed By: #### H EMDF, BMP3, LFT3, LIPA3, MG3 ####Seymour ParkerNmxpckhur7916[place] [address] Calcium 9.5 mg/dL Normal 8.2-10.1 [facility] Comment on above: Performed By: #### H EMDF, BMP3, LFT3, LIPA3, MG3 ####[facility]ymour ParkerSyyjdkmou2974[place] [address] Chloride 101 mmol/L Normal 98-109 [facility] Comment on above: Performed By: #### H EMDF, BMP3, LFT3, LIPA3, MG3 ####[facility]our Znwlmcdyh4736QqtellGl[place] [address] CO2 25 mmol/L Normal 21-32 [facility] Comment on above: Performed By: #### H EMDF, BMP3, LFT3, LIPA3, MG3 ####Seymour ParkerEgazbvgdc95[address] [address] Creatinine 0.92 mg/dL Normal 0.55-1.40 [facility] Comment on above: Performed By: #### H EMDF, BMP3, LFT3, LIPA3, MG3 ####[facility]ymour ParkerSowibmidj64[address]Xniovo[address] [address] eGFR (black) mL/min/{1.73_m2} Normal >60 [facility] Comment on above: Performed By: #### H EMDF, BMP3, LFT3, LIPA3, MG3 ####Seymour ParkerGpzrkrgzy5298Pffdsc[address] [address] eGFR (non-black) mL/min/{1.73_m2} Normal >60 [facility] Comment on above: Result Comment: Sour ce- MDRD equation with creatinine calibration to IDMS(NKDEP)eGFR not recommended for drug dose adjustment Performed By: #### H EMDF, BMP3, LFT3, LIPA3, MG3 ####Seymour ParkerKkuovetwk07[address]Zldnlj[address] [address] Glucose mass conc 92 mg/dL Normal 70-100 [facility] Comment on above: Performed By: #### H EMDF, BMP3, LFT3, LIPA3, MG3 ####Seymour ParkerFabwdqcfh4[address]Oujpwu[address] [address] Potassium molar conc 3.5 mmol/L Normal 3.5-5.1 [facility] Comment on above: Performed By: #### H EMDF, BMP3, LFT3, LIPA3, MG3 ####Keege Fhovvgvcc5396[place]dbvr[place] [address] Sodium 138 mmol/L Normal 135-145 [facility] Comment on above: Performed By: #### H EMDF, BMP3, LFT3, LIPA3, MG3 ####[facility] Tsslsmfqm7372[place]cnl[place] [address] Urea nitrogen 10 mg/dL Normal 7-25 [facility] Comment on above: Performed By: #### H EMDF, BMP3, LFT3, LIPA3, MG3 ####[facility] Thviqshew7787Tgkves[place] [address] CR Abdomen APon 02-22-2017 CR Abdomen AP Patient Name: ROSY RAWLS Diagnostic Radiology Exam Date/Time 02/22/2017 20:48:54 EST Exam CR Abdomen AP Ordering Physician DO ESPARZA RACHAEL C Accession Number [id number] CPT4 Codes 57104 () Reason For Exam abd pain Report [...] Transcribed Date and Time: 02/22/2017 8:52 Normal [facility] HCG,Urine Qualon 02-22-2017 HCG.beta subunit ( test) Ql (U) Negative Normal Negative [facility] Comment on above: Result Comment: Preg sophia is the most common reason for HCG in urine, althoughchoriocarcinoma, hydatidiform mole, and certain nontropho-blastic malignancies also result in detectable urinary HCGlevels. Sensitivity = 20mIU/mL. Performed By: #### U AMAC, HCGUR ####[facility] Mxbgntuhr5412[place]ylgtzGl[place] [address] Hemogram w/ Autodiffon 02-22 Abs Baso Cnt 0.0 10*3/uL Normal 0.0-0.2 [facility] Comment on above: Performed By: #### H EMDF, BMP3, LFT3, LIPA3, MG3 ####[facility] Nuzfbgnbo4[address] [address] Basophils/100 WBC Auto (Bld) 0.5 % Normal [facility] Comment on above: Performed By: #### H EMDF, BMP3, LFT3, LIPA3, MG3 ####[facility] Swstcvcvg[address]Dypo[address] [address] Eosinophils 0.1 10*3/uL Normal 0.0-0.5 [facility] Comment on above: Performed By: #### H EMDF, BMP3, LFT3, LIPA3, MG3 ####Herita[address] [address] Eosinophils/100 leukocytes 0.9 % Normal [facility] Comment on above: Performed By: #### H EMDF, BMP3, LFT3, LIPA3, MG3 ####[facility] Pnlkrmnuc42[address]Dukd[address] [address] Erythrocyte distribution width Auto Ratio (RBC) 12.8 % Normal 11.5-14.5 [facility] Comment on above: Performed By: #### H EMDF, BMP3, LFT3, LIPA3, MG3 ####Herita Neqorpeej16[address]Qxzwhd[address] [address] Erythrocytes (RBC) 5.09 10*6/uL Normal 3.80-5.20 [facility] Comment on above: Performed By: #### H EMDF, BMP3, LFT3, LIPA3, MG3 ####[facility]itage Rhlryxtif8[address]cin[address] [address] Granulocytes/100 WBC (Bld) 53.5 % Normal [facility] Comment on above: Performed By: #### H EMDF, BMP3, LFT3, LIPA3, MG3 ####[place] [id number] [place] [address] Hematocrit (HCT) 45.9 % Normal 35.0-47.0 [facility] Comment on above: Performed By: #### H EMDF, BMP3, LFT3, LIPA3, MG3 ####[place] [id number] [place] [address] Hemoglobin mass conc (Bld) 15.5 g/dL Normal 11.7-16.0 [facility] Comment on above: Performed By: #### H EMDF, BMP3, LFT3, LIPA3, MG3 ####[address] [address] Lymphocytes 3.4 10*3/uL Normal [facility] Comment on above: Performed By: #### H EMDF, BMP3, LFT3, LIPA3, MG3 ####[address] [address] Lymphocytes/100 leukocytes 37.2 % Normal [facility] Comment on above: Performed By: #### H EMDF, BMP3, LFT3, LIPA3, MG3 ####[address] [address] MCH 30.4 pg Normal 26.0-34.0 [facility] Comment on above: Performed By: #### H EMDF, BMP3, LFT3, LIPA3, MG3 ####[address] [address] MCHC mass conc (RBC) 33.7 % Normal 32.0-36.0 [facility] Comment on above: Performed By: #### H EMDF, BMP3, LFT3, LIPA3, MG3 ####[address] [address] MCV 90.1 fL Normal 79.0-98.0 [facility] Comment on above: Performed By: #### H EMDF, BMP3, LFT3, LIPA3, MG3 ####Herita Ztbhepgsx8895Ibbprb[place] [address] Monocytes 0.7 10*3/uL Normal 0.0-0.8 [facility] Comment on above: Performed By: #### H EMDF, BMP3, LFT3, LIPA3, MG3 ####[facility] Cbpomzafy7422SnljcfGl[place] [address] Monocytes/100 leukocytes 7.9 % Normal [facility] Comment on above: Performed By: #### H EMDF, BMP3, LFT3, LIPA3, MG3 ####Herita Hgqvzkmji0280HzcafkGl[place] [address] Neutrophils 4.9 10*3/uL Normal 1.8-7.0 [facility] Comment on above: Performed By: #### H EMDF, BMP3, LFT3, LIPA3, MG3 ####[place] [id number] [address] Platelet mean volume (PMV) 9.2 fL Normal 7.4-10.4 [facility] Comment on above: Performed By: #### H EMDF, BMP3, LFT3, LIPA3, MG3 ####[place] [id number], [place] [address] Platelets 173 10*3/uL Normal 140-440 [facility] Comment on above: Performed By: #### H EMDF, BMP3, LFT3, LIPA3, MG3 ####Herita Gbmtozznx3057AwlyhdGl[place] [address] WBC (Leukocytes) 9.1 10*3/uL Normal 3.6-10.7 [facility] Comment on above: Performed By: #### H EMDF, BMP3, LFT3, LIPA3, MG3 ####[place] [id number] [address] Hepatic Functionon Alanine aminotransferase (ALT) 32 U/L Normal 12-78 [facility] Comment on above: Performed By: #### H EMDF, BMP3, LFT3, LIPA3, MG3 ####Herita Deodeptnd4065WsvvksGl[place] [address] Albumin 3.6 g/dL Normal 3.4-5.0 [facility] Comment on above: Performed By: #### H EMDF, BMP3, LFT3, LIPA3, MG3 ####Herita Qhjxwgcpe99[address] [address] Alkaline phosphatase (ALP) 59 U/L Normal 45-117 [facility] Comment on above: Performed By: #### H EMDF, BMP3, LFT3, LIPA3, MG3 ####[address] [address] Aspartate aminotransferase (AST) 17 U/L Normal 15-37 [facility] Comment on above: Performed By: #### H EMDF, BMP3, LFT3, LIPA3, MG3 ####[address] [address] Bilirubin (direct) 0.1 mg/dL Normal 0.0-0.2 [facility] Comment on above: Performed By: #### H EMDF, BMP3, LFT3, LIPA3, MG3 ####[address] [address] Bilirubin (total) 0.4 mg/dL Normal 0.2-1.0 [facility] Comment on above: Performed By: #### H EMDF, BMP3, LFT3, LIPA3, MG3 ####Herita Rrwrfmkdj8[address] [address] Protein 7.9 g/dL Normal 6.4-8.2 [facility] Comment on above: Performed By: #### H EMDF, BMP3, LFT3, LIPA3, MG3 ####[place] [id number] [address] Lipaseon 02-22-2017 Lipase 163 [IU]/L Normal 73-393 [facility] Comment on above: Performed By: #### H EMDF, BMP3, LFT3, LIPA3, MG3 ####[address] [address] Magnesiumon 02-22-2017 Magnesium 2.0 mg/dL Normal 1.8-2.4 [facility] Comment on above: Performed By: #### H EMDF, BMP3, LFT3, LIPA3, MG3 ####[address] [address] Urinalysis,Macroon 7 Bilirubin (direct) Negative Normal Negative [facility] Comment on above: Performed By: #### U AMAC, HCGUR ####[address] [address] Ketone,Urine Negative Normal Negative [facility] Comment on above: Performed By: #### U AMAC, HCGUR ####[address] [address] Occult Blood,Ur Negative Normal Negative [facility] Comment on above: Performed By: #### U AMAC, HCGUR ####[address] [address] Specific [place]right,Urine 1.015 Normal 1.005-1.030 [facility] Comment on above: Performed By: #### U AMAC, HCGUR ####[address] [address] Total Protein,Urine Negative Normal Negative [facility] Comment on above: Performed By: #### U AMAC, HCGUR ####[place] [address]Rlhcjqlva7319Kimlfq[place] [address] Urine, appearance Clear Normal [facility] Comment on above: Performed By: #### U AMAC, HCGUR ####[place] [address]Efxicddnw0669EiluydGl[place] [address] Urine, color Yellow Normal Lt. Yellow [facility] Comment on above: Performed By: #### U AMAC, HCGUR ####itahumberto Axseingwx1212Gmusba [facility] [address] Urine, glucose presence NEG (Normal) Normal Negative [facility] Comment on above: Performed By: #### U AMAC, HCGUR ####[facility]itage Ylkjwbqak7580Vksvsv [place] [address] Urine, nitrite presence Negative Normal Negative [facility] Comment on above: Performed By: #### U AMAC, HCGUR ####Heritage Zyodkscya1057Zdzwdi [place] [address] Urine, pH 7.0 [pH] Normal 5.0-8.0 [facility] Comment on above: Performed By: #### U AMAC, HCGUR ####itahumberto Dmxigxqls9482Uefgxz [place] [address] Urine, urobilinogen Normal (0.2) Normal 0-1 [facility] Comment on above: Performed By: #### U AMAC, HCGUR ####Seymour Yildvfjhf[address]60[place]hp[place] [address] WBC (Leukocytes) Negative Normal Negative [facility] Comment on above: Performed By: #### U AMAC, HCGUR ####Seymour Urxvztlxk7075Uwt[place]c [place] [address] ED Note-Provideron 7 ED Note-Provider Normal [facility] ED Note-Provider Normal [facility] Pathology Surgicalon 017 Pathology Surgical SEE BELOW [facility] Department of Pathology [address] [place] [address] NAME: PATSY ROSY 1995 ACCESSION NO: [id number]: VULVA, BIOPSY - CONDYLOMATOUS CHANGES PRESENT. NEGATIVE FOR DYSPLASIA.CLINICAL INFORMATION: VULVODYNIA UNSPECIFIEDPROCEDURE :SPECIMEN: VULVA BX D# [id number] DESCRIPTION:Received labeled: Omi Rawls in formalin labeled vulvar biopsy is a 0.4 x 0.4 x 0.1 tanskin. No discrete lesion is identified. The specimen is inked andbisected. All submitted in one cassette. dictated by MarcoMICROSCOPIC DESCRIPTION:Slides reviewed.CPT: 79995 JONATHAN CLANCY MD, PATHOLOGIST Page 1 of 1 [facility] Comment on above: Performed By: #### S UR ####[facility], [address] [place] [address] Patient Summary Documentson 09-18-2016 Patient Summary Documents Normal [facility] Vital Signs Date Time Vital Sign Value Performing Clinician Facility 11-17-2024 08:20-0400 Body height 175.3 cm Josh Mccann MD Work Phone: [facility] 11-17-2024 08:20-0400 Body mass index (BMI) [Ratio] 35.15 kg/m2 Josh Mccann MD Work Phone: [facility] 11-17-2024 08:20-0400 Body weight 107.96 kg Jsoh Mccann MD Work Phone: [facility] 11-17-2024 08:20-0400 Diastolic blood pressure 88 mm[Hg] Josh Mccann MD Work Phone: [facility] 11-17-2024 08:20-0400 Heart rate 73 /min Josh Mccann MD Work Phone: [facility] 11-17-2024 08:20-0400 Systolic blood pressure 127 mm[Hg] Josh Mccann MD Work Phone: [facility] 11-03-2024 14:38-0400 Body temperature 96.8 [degF] Jaye Bowling MACHINIST INSTRUCTOR - MILITARY COMMUNICATIONS SPECIALIST Work Phone: [facility] 11-03-2024 14:38-0400 Diastolic blood pressure 67 mm[Hg] Jaye Bowling MACHINIST INSTRUCTOR - MILITARY COMMUNICATIONS SPECIALIST Work Phone: [facility] 11-03-2024 14:38-0400 Heart rate 69 /min Jaye Bowling APRN - MILITARY COMMUNICATIONS SPECIALIST Work Phone: [facility] 11-03-2024 14:38-0400 Systolic blood pressure 125 mm[Hg] Jaye Dash MACHINIST INSTRUCTOR - MILITARY COMMUNICATIONS SPECIALIST Work Phone: [facility] 10-19-2024 14:00-0400 Diastolic blood pressure 77 mm[Hg] Bria Smith MD Work Phone: [facility] 10-19-2024 14:00-0400 Heart rate 82 /min Bria Smith MD Work Phone: [facility] 10-19-2024 14:00-0400 Respiratory rate 16 /min Bria Smith MD Work Phone: [facility] 10-19-2024 14:00-0400 Systolic blood pressure 121 mm[Hg] Bria Smith MD Work Phone: [facility] 10-18-2024 14:09-0400 Diastolic blood pressure 78 mm[Hg] Bria Smith MD Work Phone: [facility] 10-18-2024 14:09-0400 Heart rate 89 /min Bria Smith MD Work Phone: [facility] 10-18-2024 14:09-0400 Respiratory rate 15 /min Bria Smith MD Work Phone: [facility] 10-18-2024 14:09-0400 Systolic blood pressure 137 mm[Hg] Bria Smith MD Work Phone: [facility] [facility] 09-08-2024 14:19-0400 Diastolic blood pressure 99 mm[Hg] Jaye Bowling MACHINIST INSTRUCTOR - MILITARY COMMUNICATIONS SPECIALIST Work Phone: [facility] 09-08-2024 14:19-0400 Heart rate 62 /min Jaye Dash MACHINIST INSTRUCTOR - MILITARY COMMUNICATIONS SPECIALIST Work Phone: [facility] 09-08-2024 14:19-0400 Systolic blood pressure 149 mm[Hg] Jaye Dash MACHINIST INSTRUCTOR - MILITARY COMMUNICATIONS SPECIALIST Work Phone: [facility] 09-08-2024 13:50-0400 Body height 175.3 cm Jaye Bowling APRN - MILITARY COMMUNICATIONS SPECIALIST Work Phone: [facility] 09-08-2024 13:50-0400 Body mass index (BMI) [Ratio] 37.04 kg/m2 Jaye Bowling APRN - MILITARY COMMUNICATIONS SPECIALIST Work Phone: [facility] 09-08-2024 13:50-0400 Body weight 113.76 kg Jaye Bowling APRN - MILITARY COMMUNICATIONS SPECIALIST Work Phone: [facility] 07-05-2024 13:39-0400 Diastolic blood pressure 82 mm[Hg] Jaye Bowling APRN - MILITARY COMMUNICATIONS SPECIALIST Work Phone: [facility] Comment on above: Bp manual recheck 07-05-2024 13:39-0400 Systolic blood pressure 154 mm[Hg] Jaye Bowling APRN - MILITARY COMMUNICATIONS SPECIALIST Work Phone: [facility] Comment on above: Bp manual recheck 07-05-2024 13:04-0400 Body height 175.3 cm Jaye Bowling APRN - MILITARY COMMUNICATIONS SPECIALIST Work Phone: [facility] 07-05-2024 13:04-0400 Body mass index (BMI) [Ratio] 34.11 kg/m2 Jaye Bowling APRN - MILITARY COMMUNICATIONS SPECIALIST Work Phone: [facility] 07-05-2024 13:04-0400 Body temperature 98.1 [degF] Jaye Bowling APRN - MILITARY COMMUNICATIONS SPECIALIST Work Phone: [facility] 07-05-2024 13:04-0400 Body weight 104.78 kg Jaye Bowling APRN - MILITARY COMMUNICATIONS SPECIALIST Work Phone: [facility] 07-05-2024 13:04-0400 Heart rate 53 /min Jaye Bowling APRN - MILITARY COMMUNICATIONS SPECIALIST Work Phone: [facility] 06-22-2024 13:42-0400 Body temperature 97.59 [degF] Jaye Bowling APRN - MILITARY COMMUNICATIONS SPECIALIST Work Phone: [facility] 04-02-2025 13:42-0400 Diastolic blood pressure 78 mm[Hg] Jaye Bowling MACHINIST INSTRUCTOR - MILITARY COMMUNICATIONS SPECIALIST Work Phone: [facility] 06-22-2024 13:42-0400 Heart rate 70 /min Jaye Bowling MACHINIST INSTRUCTOR - MILITARY COMMUNICATIONS SPECIALIST Work Phone: [facility] 06-22-2024 13:42-0400 Respiratory rate 16 /min Jaye Bowling MACHINIST INSTRUCTOR - MILITARY COMMUNICATIONS SPECIALIST Work Phone: [facility] 06-22-2024 13:42-0400 SaO2% (BldA) [Mass fraction] 99 % Jaye Bowling MACHINIST INSTRUCTOR - MILITARY COMMUNICATIONS SPECIALIST Work Phone: [facility] 06-22-2024 13:42-0400 Systolic blood pressure 124 mm[Hg] Jaye Bowling MACHINIST INSTRUCTOR - MILITARY COMMUNICATIONS SPECIALIST Work Phone: [facility] 05-24-2024 10:24-0500 Body height 175.3 cm Jaye Bowling MACHINIST INSTRUCTOR - MILITARY COMMUNICATIONS SPECIALIST Work Phone: [facility] 05-24-2024 10:24-0500 Body mass index (BMI) [Ratio] 34.11 kg/m2 Jaye Bowling MACHINIST INSTRUCTOR - MILITARY COMMUNICATIONS SPECIALIST Work Phone: [facility] 05-24-2024 10:24-0500 Body weight 104.78 kg Jaye Bowling MACHINIST INSTRUCTOR - MILITARY COMMUNICATIONS SPECIALIST Work Phone: [facility] 05-24-2024 10:24-0500 Diastolic blood pressure 76 mm[Hg] Jaye Bowling MACHINIST INSTRUCTOR - MILITARY COMMUNICATIONS SPECIALIST Work Phone: [facility] 05-24-2024 10:24-0500 Systolic blood pressure 120 mm[Hg] Jaye Bowling MACHINIST INSTRUCTOR - MILITARY COMMUNICATIONS SPECIALIST Work Phone: [facility] 04-11-2024 13:16-0500 Body height 175.3 cm Jaye Bowling MACHINIST INSTRUCTOR - MILITARY COMMUNICATIONS SPECIALIST Work Phone: [facility] 04-11-2024 13:16-0500 Body mass index (BMI) [Ratio] 34.11 kg/m2 Jaye Bowling MACHINIST INSTRUCTOR - MILITARY COMMUNICATIONS SPECIALIST Work Phone: [facility] 04-11-2024 13:16-0500 Body temperature 99.3 [degF] Jaye Bowling MACHINIST INSTRUCTOR - MILITARY COMMUNICATIONS SPECIALIST Work Phone: [facility] 04-11-2024 13:16-0500 Body weight 104.78 kg Jaye Bowling MACHINIST INSTRUCTOR - MILITARY COMMUNICATIONS SPECIALIST Work Phone: [facility] 04-11-2024 13:16-0500 Diastolic blood pressure 79 mm[Hg] Jaye Bowling MACHINIST INSTRUCTOR - MILITARY COMMUNICATIONS SPECIALIST Work Phone: [facility] 04-11-2024 13:16-0500 Heart rate 82 /min Jaye Bowling MACHINIST INSTRUCTOR - MILITARY COMMUNICATIONS SPECIALIST Work Phone: [facility] 04-11-2024 13:16-0500 Systolic blood pressure 136 mm[Hg] Jaye Bowling MACHINIST INSTRUCTOR - MILITARY COMMUNICATIONS SPECIALIST Work Phone: [facility] 09-15-2023 22:51-0400 Body temperature 97.59 [degF] Anshu Chinchilla MD Work Phone: [facility] 09-15-2023 22:51-0400 Diastolic blood pressure 78 mm[Hg] Anshu Chinchilla MD Work Phone: [facility] 09-15-2023 22:51-0400 Heart rate 70 /min Anshu Chinchilla MD Work Phone: [facility] 09-15-2023 22:51-0400 Respiratory rate 16 /min Anshu Chinchilla MD Work Phone: [facility] 09-15-2023 22:51-0400 SaO2% (BldA) [Mass fraction] 96 % Anshu Chinchilla MD Work Phone: [facility] 09-15-2023 22:51-0400 Systolic blood pressure 154 mm[Hg] Anshu Chinchilla MD Work Phone: [facility] 09-15-2023 13:11-0400 Body height 175.3 cm Anshu Chinchilla MD Work Phone: [facility] 09-15-2023 13:11-0400 Body mass index (BMI) [Ratio] 31.9 kg/m2 Anshu Chinchilla MD Work Phone: [facility] 09-15-2023 13:11-0400 Body weight 97.98 kg Anshu Chinchilla MD Work Phone: [facility] 04-16-2023 13:34-0500 Body temperature 97.2 [degF] Jaye Bowling MACHINIST INSTRUCTOR - MILITARY COMMUNICATIONS SPECIALIST Work Phone: [facility] 04-16-2023 13:34-0500 Diastolic blood pressure 85 mm[Hg] Jaye Whitmoresey MACHINIST INSTRUCTOR - MILITARY COMMUNICATIONS SPECIALIST Work Phone: [facility] 04-16-2023 13:34-0500 Heart rate 78 /min Jaye Bowling MACHINIST INSTRUCTOR - MILITARY COMMUNICATIONS SPECIALIST Work Phone: [facility] 04-16-2023 13:34-0500 Systolic blood pressure 128 mm[Hg] Jaye Bowling MACHINIST INSTRUCTOR - MILITARY COMMUNICATIONS SPECIALIST Work Phone: [facility] 01-14-2023 03:21-0400 Diastolic blood pressure 81 mm[Hg] [facility] 01-14-2023 03:21-0400 Heart rate 91 /min [facility] 01-14-2023 03:21-0400 Respiratory rate 18 /min [facility] 01-14-2023 03:21-0400 SaO2% (BldA) [Mass fraction] 99 % [facility] 01-14-2023 03:21-0400 Systolic blood pressure 131 mm[Hg] [facility] 01-14-2023 00:17-0400 Body height 175.26 cm [facility] 01-14-2023 00:17-0400 Body mass index (BMI) [Ratio] 33.2 kg/m2 [facility] 01-14-2023 00:17-0400 Body temperature 97 [degF] [facility] 01-14-2023 00:17-0400 Body weight 102.1 kg [facility] 10-22-2022 12:08-0400 Body height 175.3 cm Jaye Bowling MACHINIST INSTRUCTOR - MILITARY COMMUNICATIONS SPECIALIST Work Phone: [facility] [place] 10-22-2022 12:08-0400 Body mass index (BMI) [Ratio] 32.78 kg/m2 Jaye Bowling MACHINIST INSTRUCTOR - MILITARY COMMUNICATIONS SPECIALIST Work Phone: [facility] [place] 10-22-2022 12:08-0400 Body temperature 97.9 [degF] Jaye Bowling MACHINIST INSTRUCTOR - MILITARY COMMUNICATIONS SPECIALIST Work Phone: [facility] [place] 10-22-2022 12:08-0400 Body weight 100.7 kg Jaye Bowling MACHINIST INSTRUCTOR - MILITARY COMMUNICATIONS SPECIALIST Work Phone: [facility] 10-22-2022 12:08-0400 Diastolic blood pressure 73 mm[Hg] Jaye Bowling MACHINIST INSTRUCTOR - MILITARY COMMUNICATIONS SPECIALIST Work Phone: [facility] 10-22-2022 12:08-0400 Heart rate 71 /min Jaye Bowling MACHINIST INSTRUCTOR - MILITARY COMMUNICATIONS SPECIALIST Work Phone: [facility] 10-22-2022 12:08-0400 Systolic blood pressure 143 mm[Hg] Jaye Bowling MACHINIST INSTRUCTOR [email or web address] MILITARY COMMUNICATIONS SPECIALIST Work Phone: [facility] Encounters Encounter Date Encounter Type Care Provider Facility Start: 01-31-2025 ambulatory Chalon Viky Facility:[facility] Start: 01-16-2025 Encounter for gynecological examination (general) (routine) without abnormal findings Josie Latif [facility] Start: 12-22-2024 End: 12-22-2024 ambulatory Chalon Viky Facility:[facility] Start: 12-22-2024 End: 12-22-2024 ambulatory Chalon Viky Facility:[facility] Start: 12-22-2024 End: 12-22-2024 ambulatory Chalon Viky Facility:[facility] Start: 12-14-2024 End: 12-14-2024 ambulatory Chalon Viky Facility:[facility] Start: 12-05-2024 End: 12-05-2024 ambulatory Chalon Viky Facility:[facility] Start: 12-01-2024 End: 12-13-2024 Telephone encounter Jaye Bowling APRN - MILITARY COMMUNICATIONS SPECIALIST Work Phone: [facility] Comment on above: Med Management (Gamm acore ) Start: 11-29-2024 End: 11-29-2024 Orders Only Jaye Bowling MACHINIST INSTRUCTOR - MILITARY COMMUNICATIONS SPECIALIST Work Phone: [facility] [place] Start: 11-22-2024 End: 01-22-2025 Follow-up encounter Josh Mccann MD Work Phone: [facility] Comment on above: XR cervical spine 2 or 3 views Start: 11-17-2024 End: 11-17-2024 Subsequent hospital visit by physician Josh Mccann MD Work Phone: [facility] Comment on above: Cervical spine pain; Myofascial neck pain Start: 11-17-2024 End: 11-17-2024 Office outpatient new 45 minutes Josh Mccann MD Work Phone: [facility] Comment on above: Myofascial neck pain (Primary Dx); Cervical spine pain Start: 11-17-2024 End: 11-17-[facility] Start: 11-03-2024 End: 11-03-2024 Office outpatient visit 15 minutes Jaye Bowling MACHINIST INSTRUCTOR - MILITARY COMMUNICATIONS SPECIALIST Work Phone: [facility] Comment on above: Intractable chronic migraine without aura and without status migrainosus (Primary Dx) Start: 11-03-2024 End: 11-03-2024 ambulatory JAYE BOWLING [facility] Start: 11-03-2024 End: 11-03-2024 ambulatory [facility] Facility:[facility] Start: 10-22-2024 End: 10-22-2024 Emergency department patient visit [facility] Facility:[facility] Start: 10-20-2024 End: 11-16-2024 Telephone encounter Bria Smith MD Work Phone: [facility] Comment on above: Other (infusioin) Start: 10-19-2024 End: 10-19-2024 Patient encounter procedure Bria Smith MD Work Phone: [facility] Comment on above: Chronic migraine wit hout aura without status migrainosus, not intractable (Primary Dx); Intractable chronic migraine without aura and without status migrainosus Start: 10-19-2024 End: 10-19-2024 ambulatory CHALON VIKY [facility] Start: 10-18-2024 End: 10-18-2024 Patient encounter procedure Bria Smith MD Work Phone: [facility] Comment on above: Chronic migraine wit hout aura without status migrainosus, not intractable (Primary Dx); Intractable chronic migraine without aura and without status migrainosus Start: 10-18-2024 End: 10-18-2024 ambulatory CHALON VIKY [facility] Start: 10-12-2024 End: 10-12-2024 ambulatory Hugo Davey Facility:[facility] Start: 09-22-2024 End: 09-22-2024 ambulatory Chalon Viky Facility:[facility] Start: 09-14-2024 End: 09-14-2024 ambulatory Chalon Viky Facility:[facility] Start: 09-08-2024 End: 09-08-2024 Office outpatient visit 15 minutes Jaye Cervantes CNP Work Phone: [facility] Comment on above: Intractable chronic migraine without aura and without status migrainosus (Primary Dx) Start: 09-08-2024 End: 09-08-2024 ambulatory JAYE WHITMORESEY [facility] Start: 09-07-2024 End: 10-07-2024 Telephone encounter Jaye Bowling APRN - MILITARY COMMUNICATIONS SPECIALIST Work Phone: [facility] Comment on above: Appointment Request Start: 09-02-2024 End: 09-02-2024 ambulatory Chalon Viky Facility:[facility] Start: 08-18-2024 End: 08-18-2024 ambulatory Chalon Viky Facility:[facility] Start: 07-20-2024 End: 07-20-2024 ambulatory Chalon Viky Facility:[facility] Start: 07-05-2024 End: 07-05-2024 Office outpatient visit 15 minutes Jaye Bowling MACHINIST INSTRUCTOR - MILITARY COMMUNICATIONS SPECIALIST Work Phone: [facility] Comment on above: Intractable chronic migraine without aura and without status migrainosus (Primary Dx) Start: 07-05-2024 End: 07-05-2024 ambulatory [facility] Start: 06-22-2024 End: 06-22-2024 Subsequent hospital visit by physician Jaye Bowling APRN - MILITARY COMMUNICATIONS SPECIALIST Work Phone: [facility] Comment on above: Multiple sclerosis ( HCC) Start: 06-22-2024 End: 06-22-2024 ambulatory [facility] Start: 06-17-2024 End: 07-05-2024 [facility]ulatory [facility] Start: 06-17-2024 End: 07-05-2024 Patient encounter procedure Moises Benjamin RN [facility] Clinical Communication Comment on above: Multiple sclerosis ( HCC) (Primary Dx) Start: 06-17-2024 End: 07-01-2024 Telephone encounter Karol Gomez RN [facility] Comment on above: Other (MRI results) Start: 06-14-2024 End: 06-14-20[facility] Start: 06-10-2024 End: 06-10-2024 ambulatory Chalon Viky Facility:[facility] Start: 05-24-2024 End: 05-24-2024 Office outpatient visit 15 minutes Jaye Bowling MACHINIST INSTRUCTOR - MILITARY COMMUNICATIONS SPECIALIST Work Phone: [facility] Comment on above: Intractable chronic migraine without aura and without status migrainosus (Primary Dx) Start: 05-24-2024 End: 05-24-2024 ambulatory [facility] Start: 05-17-2024 End: 05-17-2024 ambulatory Chalon Viky Facility:[facility] Start: 04-14-2024 End: 04-14-2024 Telephone encounter Jaye Bowling MACHINIST INSTRUCTOR - MILITARY COMMUNICATIONS SPECIALIST Work Phone: [facility] Clinical Communication Comment on above: Medication Problem Start: 04-11-2024 End: 04-11-2024 Office outpatient visit 15 minutes Jaye Bowling MACHINIST INSTRUCTOR - MILITARY COMMUNICATIONS SPECIALIST Work Phone: [facility] Comment on above: Intractable chronic migraine without aura and without status migrainosus (Primary Dx) Start: 04-11-2024 End: 04-11-2024 ambulatory JAYE BOWLING [facility] Start: 04-05-2024 End: 04-05-2024 ambulatory Chalon Viky Facility:[facility] Start: 03-24-2024 End: 03-25-2024 ambulatory Chalon Viky Facility:[facility] Start: 02-25-2024 End: 03-22-2024 ambulatory Chalon Viky Facility:[facility] Start: 02-15-2024 End: 02-15-2024 Telephone encounter Jaye Bowling MACHINIST INSTRUCTOR - MILITARY COMMUNICATIONS SPECIALIST Work Phone: [facility] Comment on above: Prior Authorization Start: 01-11-2024 End: 01-11-2024 Telephone encounter Jaye Bowling MACHINIST INSTRUCTOR - MILITARY COMMUNICATIONS SPECIALIST Work Phone: [facility] Comment on above: Med Management Start: 12-08-2023 End: 12-10-2023 Telephone encounter Cecilio Olivera PharmD [facility] Comment on above: Med Management Start: 10-20-2023 End: 12-09-2023 Telephone encounter Jaye Bowling MACHINIST INSTRUCTOR - MILITARY COMMUNICATIONS SPECIALIST Work Phone: [facility] Comment on above: Other (Unable to sri ch pt for Ajovy) Start: 09-15-2023 End: 09-15-2023 ambulatory Heri Mcneal RN [facility] Clinical Communication Start: 09-15-2023 End: 09-15-2023 Patient encounter procedure Heri Mcneal RN [facility] Communication Start: 09-15-2023 End: 09-15-2023 Emergency department patient visit Anshu Chinchilla MD Work Phone: [facility] Comment on above: Suicidal ideations ( Primary Dx) Start: 06-09-2023 Refill Jaye Bowling MACHINIST INSTRUCTOR - MILITARY COMMUNICATIONS SPECIALIST Work Phone: [facility] Start: 04-16-2023 End: 04-16-2023 Office outpatient visit 15 minutes Jaye Bowling MACHINIST INSTRUCTOR - MILITARY COMMUNICATIONS SPECIALIST Work Phone: [facility] Comment on above: Chronic migraine wit hout aura without status migrainosus, not intractable (Primary Dx) Start: 03-18-2023 End: 03-18-2023 ambulatory [facility] Work Phone: Start: 03-18-2023 End: 03-18-2023 Patient encounter procedure [facility], Specimen Work Phone: Start: 01-28-2023 End: 01-29-2023 ambulatory EDUARD COPPOLA Facility:[facility] Start: 01-14-2023 End: 01-14-2023 Emergency department patient visit [facility] Work Phone: Start: 10-22-2022 End: 10-22-2022 Office outpatient visit 15 minutes Jaye Bowling MACHINIST INSTRUCTOR - MILITARY COMMUNICATIONS SPECIALIST Work Phone: [facility] Comment on above: Chronic migraine wit hout aura without status migrainosus, not intractable (Primary Dx) Start: 09-19-2022 Telephone encounter Bria guzman MD Work Phone: [facility] Comment on above: Prior Authorization Start: 08-15-2022 End: 08-15-2022 ambulatory EDUARD COPPOLA Facility:[facility] Start: 08-15-2022 End: 08-15-2022 Subsequent hospital visit by physician [facility] Work Phone: Radiology Comment on above: Injury of left ankle , initial encounter [S99.912A] Start: 07-14-2022 End: 07-15-2022 ambulatory EDUARD COPPOLA Facility:[facility] Start: 07-08-2022 Telephone encounter Bria guzman MD Work Phone: [facility] Comment on above: Forms/questionnaires Start: 05-20-2022 End: 05-21-2022 ambulatory EDUARD COPPOLA Facility:[facility] Start: 02-28-2022 End: 02-28-2022 ambulatory EDUARD COPPOLA Facility:[facility] Start: 02-28-2022 End: 02-28-2022 Subsequent hospital visit by physician [facility] Work Phone: Radiology Start: 02-26-2022 End: 02-26-2022 ambulatory EDUARD COPPOLA Facility:[facility] Start: 02-25-2022 Telephone encounter Bria guzman MD Work Phone: [facility] Comment on above: Medication Problem Start: 12-23-2021 End: 12-24-2021 ambulatory BRIA SMITH MD Facility:[facility] Start: 12-23-2021 End: 12-23-2021 Patient encounter procedure BRIA SMITH MD [facility] Start: 03-31-2017 Ambulatory [facility] Start: 03-26-2017 Ambulatory [facility] Start: 02-22-2017 [facility] Start: 09-18-2016 End: 09-19-2016 Ambulatory MYRON VIVEROS Facility:[facility] Start: 09-18-2016 End: 09-18-2016 Emergency department patient visit EDUARD COPPOLA Facility:[facility] Start: 09-18-2016 End: 09-19-2016 Ambulatory PHY WO ID REFERRING Facility:[facility] Procedures Date Procedure Procedure Detail Performing Clinician Start: 06-22-2024 IR LUMBAR PUNCTURE Flor Bowling MACHINIST INSTRUCTOR - MILITARY COMMUNICATIONS SPECIALIST Work Phone: Start: 06-22-2024 End: 06-22-2024 Cell count miscellaneous body fluids Jaye Bowling MACHINIST INSTRUCTOR - MILITARY COMMUNICATIONS SPECIALIST Work Phone: Start: 06-22-2024 Glucose body fluid o ther than blood Jaye Bowling MACHINIST INSTRUCTOR - MILITARY COMMUNICATIONS SPECIALIST Work Phone: Start: 04-11-2024 C-reactive protein Flor Bowling MACHINIST INSTRUCTOR - MILITARY COMMUNICATIONS SPECIALIST Work Phone: Start: 04-11-2024 Sedimentation rate r bc automated Jaye Bowling MACHINIST INSTRUCTOR - [facility] Work Phone: Start: 09-15-2023 Drug tst prsmv [...] 12 lds trcg only w/o i&r Jade A Juan DO Work Phone: Start: 09-15-2023 SARS-CoV-2 (COVID-19 [...] ankle complete minimum 3 views Santi Colunga MACHINIST INSTRUCTOR.MILITARY COMMUNICATIONS SPECIALIST Work Phone: Start: 05-20-2022 Thyrotropin [Units/v olume] [...] for Adults (1 - 1-dose 75+ series) [facility] Start: 2055 RSV Immunization age d 60 or older (1 - 1-dose 60+ series) RSV Immunization aged 60 or older (1 - 1-dose 60+ series) [facility] Start: 2045 Zoster Vaccines (1 o f 2) Zoster Vaccines (1 of 2) [facility] Start: 09-21-2027 DTaP/Tdap/Td Vaccine s (2 - Td or Tdap) DTaP/Tdap/Td Vaccines (2 - Td or Tdap) [facility] Start: 09-21-2027 Urine microalbumin profile DTaP,Tdap,Td Vaccine (2 - Td or Tdap) [facility] Start: 02-09-2025 End: 02-09-2025 Patient encounter procedure 02/09/2025 8:20 AM EST Office Visit [facility] [place] [address] [place] [place] [address] Josh Mccann MD [address] [place] [address] [facility] [place] Start: 02-02-2025 End: 02-02-2025 Patient encounter procedure 02/02/2025 2:00 PM EST Office Visit [facility] Neurology [facility] [address] [place] [id number] Jaye Bowling, MACHINIST INSTRUCTOR - MILITARY COMMUNICATIONS SPECIALIST [address] [place] [address] [facility] Start: 11-21-2024 COVID-19 Vaccine ( season) COVID-19 Vaccine ( season) [facility] Start: 11-21-2024 Influenza vaccination [facility] Start: 11-17-2024 End: 11-17-2025 XR Cervical spine 2 or 3 Views [facility] Work Phone: Comment on above: Expected: 11/17/2024 (Approximate), Expires: 11/17/2025 Once for 1 Occurrenc es starting 11/17/2024 until 11/17/2024 Start: 11-17-2024 End: 11-17-2024 Patient encounter procedure 11/17/2024 8:20 AM EDT Office Visit [facility] [place] [address] [place] [address] Josh Mccann MD [address] [place] [address] [place] [address] [facility] [place] Start: 11-03-2024 End: 11-03-2024 Patient encounter procedure 11/03/2024 2:30 PM EDT Office Visit [facility] [address] [place] [address] [place] [id number] Jaye Bowling, MACHINIST INSTRUCTOR - MILITARY COMMUNICATIONS SPECIALIST [address] [place] [address] [facility] Start: 10-20-2024 End: 10-20-2024 Patient encounter procedure 10/20/2024 11:45 AM EDT Procedure Visit [facility] [place] [address] [place] [id number] [facility] Start: 10-19-2024 End: 10-19-2024 Patient encounter procedure 10/19/2024 11:45 AM EDT Procedure Visit [facility] [address] [place] [id number] [facility] Start: 10-18-2024 End: 10-18-2024 Patient encounter procedure 10/18/2024 11:45 AM EDT Procedure Visit [address] [facility] [place] [address] [facility] Start: 09-08-2024 End: 09-08-2024 Patient encounter procedure 09/08/2024 1:30 PM EDT Office Visit [address] [place] [address] Jaye Bowling, MACHINIST INSTRUCTOR - MILITARY COMMUNICATIONS SPECIALIST [address] [place] [address] [place] [address] [facility] Start: 07-05-2024 End: 07-05-2024 Patient encounter procedure 07/05/2024 1:00 PM EDT Office Visit [address] [place] [address] Jaye Bowling, MACHINIST INSTRUCTOR - MILITARY COMMUNICATIONS SPECIALIST [address] [place] [address] [place] [address] [facility] Start: 06-22-2024 End: 06-22-2024 Patient encounter procedure 06/22/2024 1:00 PM EDT Appointment [facility] [address] [place] [address] Jaye Bowling, MACHINIST INSTRUCTOR - MILITARY COMMUNICATIONS SPECIALIST [address] [place] [address] [place] [address] [facility] Start: 06-17-2024 End: 06-17-2025 CSF cell count with differential CSF cell count with differential Lab Routine Multiple sclerosis (HCC) Expected: 06/17/2024 (Approximate), Expires: 06/17/2025 [facility] Comment on above: Expected: 06/17/2024 (Approximate), Expires: 06/17/2025 Start: 06-17-2024 End: 06-17-2025 Glucose, CSF Glucose, CSF Lab Routine Multiple sclerosis ([facility]) Expected: 06/17/2024 (Approximate), Expires: 06/17/2025 [facility] Comment on above: Expected: 06/17/2024 (Approximate), Expires: 06/17/2025 Start: 06-17-2024 End: 06-17-2025 Mycobacterium sp identified in Unspecified specimen by Organism specific culture AFB culture Microbiology Routine Multiple sclerosis ([facility]) Expected: 06/17/2024 (Approximate), Expires: 06/17/2025 [facility] Comment on above: Expected: 06/17/2024 (Approximate), Expires: 06/17/2025 Start: 06-17-2024 End: 06-17-2025 Oligoclonal banding Oligoclonal banding Lab Routine Multiple sclerosis ([facility]) Expected: 06/17/2024 (Approximate), Expires: 06/17/2025 [facility] Work Phone: Comment on above: Expected: 06/17/2024 (Approximate), Expires: 06/17/2025 Start: 06-17-2024 End: 06-17-2025 Protein, CSF Protein, CSF Lab Routine Multiple sclerosis ([facility]) Expected: 06/17/2024 (Approximate), Expires: 06/17/2025 [facility] Comment on above: Expected: 06/17/2024 (Approximate), Expires: 06/17/2025 Start: 05-24-2024 End: 05-24-2024 Patient encounter procedure 05/24/2024 10:30 AM EST Office Visit [facility] Neurology [facility] [address] [place] [address] Jaye Bowling, MACHINIST INSTRUCTOR - MILITARY COMMUNICATIONS SPECIALIST [address] [place], [place] [id number] [facility] Neurology [facility] Start: 05-09-2024 Screening for malign ant neoplasm of cervix Pap Smear [facility] Start: 04-14-2024 End: 04-14-2024 Patient encounter procedure [facility] Start: 11-22-2023 Covid-19 Vaccine ( season) Covid-19 Vaccine ( season) [facility] Start: 11-22-2023 COVID-19 Vaccine ( season) COVID-19 Vaccine ( season) [facility] Start: 11-22-2023 COVID-19 Vaccine ( season) COVID-19 Vaccine () [facility] Start: 11-22-2023 Influenza vaccination [facility] Start: 05-20-2023 Thyroid stimulating hormone measurement TSH Level [facility] Start: 04-16-2023 End: 04-16-2023 Patient encounter procedure 04/16/2023 1:30 PM EST Office Visit [facility] [address] [place] [phone] Jaye Bowling, MACHINIST INSTRUCTOR - MILITARY COMMUNICATIONS SPECIALIST [address] [place] [address] [facility] Start: 01-14-2023 [facility] Start: 01-14-2023 CT angiography of ch est with contrast CTA Chest W/WO Contrast [facility] Start: 01-14-2023 CTA Chest vessels WO and W contrast IV [facility] Start: 11-21-2022 COVID-19 Vaccine ( season) COVID-19 Vaccine () [facility] Start: 11-21-2022 Influenza vaccination [facility] Start: 10-22-2022 End: 10-22-2022 Patient encounter procedure 10/22/2022 12:00 PM EDT Office Visit [facility] [address] [place] [phone] Jaye Bowling, MACHINIST INSTRUCTOR - MILITARY COMMUNICATIONS SPECIALIST [address] [place] [address] [facility] Start: 03-23-2022 Depression Assessment Depression Ass essment [facility] Start: 09-18-2020 COVID-19 Vaccine (3 - Booster for Moderna series) COVID-19 Vaccine (3 - Booster for Moderna series) [facility] Start: 2016 Pap Testing Pap Testing [facility] Start: 2016 Screening for malign ant neoplasm of cervix Cervical Cancer Screening [facility] Start: 2014 Hepatitis B Vaccine (1 of 3 - 19+ 3-dose series) Hepatitis B Vaccine (1 of 3 - 19+ 3-dose series) [facility] Start: 2014 Hepatitis B Vaccines (1 of 3 - 19+ 3-dose series) Hepatitis B Vaccines (1 of 3 - 19+ 3-dose series) [facility] Start: 2013 Anxiety Screening Anxiety Screening [facility] Start: 2013 Depression Screening Depression Scre ening [facility] Start: 2013 Diabetes mellitus screening Diabetes Screening [facility] Start: 2013 Hepatitis C screening Hepatitis C [facility] Start: 2013 Hepatitis C Screening Hepatitis C [facility] Start: 2013 HIV Screening HIV Screening [facility] Start: 2013 HIV screening HIV Screening [facility] Start: 2008 Varicella vaccination Varicell a Vaccines (1 of 2 - 13+ 2-dose series) [facility] Start: 2007 [facility]: 2007 Depression Screening Depression Scre ening [facility] Start: 1996 MMR Vaccines (1 of 1 - Standard series) MMR Vaccines (1 of 1 - Standard series) [facility] Start: 1996 Varicella vaccination Varicell a Vaccines (1 of 2 - 2-dose childhood series) [facility] Start: 1995 Covid-19 Vaccine (#1) Covid-19 Vacci ne (#1) [facility] Start: 1995 Hepatitis B Vaccine (1 of 3 - 3-dose series) Hepatitis B Vaccine (1 of 3 - 3-dose series) [facility] Start: 1995 Hepatitis B Vaccines (1 of 3 - 3-dose series) Hepatitis B Vaccines (1 of 3 - 3-dose series) [facility] Start: 1995 HIV screening HIV Screening [facility] Start: 1995 Lipid panel Lipid Panel [facility] CSF Cell Count CSF Cell Count L ab Routine Multiple sclerosis (HCC) Ordered: 06/17/2024 [facility] Comment on above: Ordered: 06/17/2024 End: 06-22-2024 Mycobacterium sp identified in Unspecified specimen by Organism specific culture [facility] Work Phone: Comment on above: Once (Lab) for 1 Occ urrences starting 06/22/2024 until 06/22/2024 End: 06-22-2024 Oligoclonal banding [facility] Comment on above: Once (Lab) for 1 Occ urrences starting 06/22/2024 until 06/22/2024 Patient Education ED Back and Ne ck Pain, General [facility] Work Phone: Patient referral [facility] Work Phone: Immunizations Immunization Date Immunization Notes Care Provider Fa [facility] 09-20-2017 tetanus toxoid, redu barbara diphtheria toxoid, and acellular pertussis vaccine, adsorbed BRIA SMITH MD [facility] Payers Date Payer Category Payer Medicaid HMO [facility] [place] ODM [id number] 2024 Medicaid MEDICAID - [facility] mber [id number] 2024 Unknown [id number] 2024 Self-pay 2021 Commercial Managed [facility] STUDENT RESOURCES [id number] 2021 Private Health Insurance [id number] 2021 Private Health Insurance [id number] 2021 Private Health Insurance [id number] 2016 Unknown [id number] 1995 Unknown [id number] Unknown Unknown [facility] [employer] [id number] Unknown [id number] .[id number] Unknown [id number] .462 Unknown [id number] [id number] .462 Unknown [id number] 2.840.1.005651.3.579.2 .462 Unknown [id number] [id number] .462 Unknown [id number] 2.16.840.1.512644.3.579.2 .462 Unknown [id number] 2.16.840.1.054094.3.579.2 .462 Unknown [id number] 2.16.840.1.164668.3.579.2 .462 Unknown [id number] 2.16.840.1.320119.3.579.2 .462 Unknown [id number] 2.16.840.1.225707.3.579.2 .462 Unknown [id number] 2.16.840.1.811393.3.579.2 .462 Unknown [id number] 2.16.840.1.276718.3.579.2 .462 Unknown [id number] 2.16.840.1.514244.3.579.2 .462 Unknown [id number] 2.16.840.1.503322.3.579.2 .462 Unknown [id number] 2.16.840.1.042082.3.579.2 .462 Unknown [id number] 2.16.840.1.599541.3.579.2 .462 Unknown [id number] 2.16.840.1.001563.3.579.2 .462 Unknown [id number] 2.16.840.1.224417.3.579.2 .462 Unknown [id number] 2.16840.1.308902.3.579.2 .462 Unknown [id number] [id number] .462 Social History Date Type Detail Facility Start: 05-27-2018 End: 08-15-2022 Tobacco smoking status Never smoked tobacco (finding) [facility] Sex Assigned At Sex [facility] Start: 03-11-2022 End: 11-17-2024 Alcohol intake Lifetime non-drinker (finding) [facility] Start: 1995 Sex Assigned At Not on file [facility] Start: 03-11-2022 End: 11-17-2024 History of Social function [facility] Start: 03-11-2022 End: 11-17-2024 Tobacco use panel [facility] Start: 01-20-2022 End: 10-22-2022 Exposure to SARS-CoV-2 (event) Not sure [facility] Start: 01-14-2023 End: 01-14-2023 Tobacco smoking status NHIS Unknown if ever smoked [facility] Start: 1995 Sex Assigned At Female [facility] Start: 10-08-2018 End: 08-15-2022 Tobacco use and exposure Smokeless tobacco non-user [facility] Start: 04-14-2019 End: 08-15-2022 Alcohol intake Current non-drinker of alcohol (finding) [facility] National Score (1-10 0), lower number is lower risk Not on file [facility] How often to you hav e a drink containing alcohol? Never [facility] Start: 10-21-2021 Sex Female (finding) [facility] Clinical Notes 12-23-2021 to 12-09-2024 Telephone Encounter - Mayela Park MA - 12/09/2024 1:32 PM EDTTelephone Encounter - Mayela Park MA - 12/09/2024 1:32 PM EDTTelephone Encounter - Mayela Park MA - 12/09/2024 11:32 AM EDT Note Date & Type Note Facility 12-09-2024 Telephone encounter Note I called [facility] ( ), GammaCore is not a covered benefit. [facility] notified, they said it may be covered under her medical benefits. They suggest we call pt's medical insurance to see if it can be processed through medical benefits. [facility] will not be able to send pt the GammaCore device. Insurance will need to tell us where she can get it. [facility] 12-09-2024 Miscellaneous Notes I called [facility] ( ), GammaCore is not a covered benefit. [facility] notified, they said it may be covered under her medical benefits. They suggest we call pt's medical insurance to see if it can be processed through medical benefits. [facility] will not be able to send pt the GammaCore device. Insurance will need to tell us where she can get it. I called [facility], they said they tried to PA the GammaCore device but insurance said only the prescriber can initiate the auth. Ph # Name of caller: Narinder Contact phone number: [phone] Relationship to Patient: Pharmacy Provider: Reyes Bowling Practice: Neurology Chief Complaint/Reason for Call: Narinder called back to check on prior authorization for Gammacore. Please advise. Best time of day caller can be reached: Any Patient advised that office/PCP has 24-48 business hours to return their call: N/A Name of caller: Narinder Contact phone number: [phone] Relationship to Patient: Pharmacy Provider: Reyes Bowling Practice: Neurology Chief Complaint/Reason for Call: Pharmacy called to request a prior authorization for Gammacore. Please submit PA as requested. Best time of day caller can be reached: Any Patient advised that office/PCP has 24-48 business hours to return their call: Yes documented in this encounter [facility] [place] 12-09-2024 Telephone encounter Note I called [facility], they said they tried to PA the GammaCore device but insurance said only the prescriber can initiate the auth. Ph # [facility] [place] 12-08-2024 Telephone encounter Note Name of caller: Sylvia Contact phone number: [phone] Relationship to Patient: Pharmacy Provider: Reyes Bowling Practice: Neurology Chief Complaint/Reason for Call: Narinder called back to check on prior authorization for Gammacore. Please advise. Best time of day caller can be reached: Any Patient advised that office/PCP has 24-48 business hours to return their call: N/A [facility] 12-01-2024 Telephone encounter Note Name of caller: Sylvia Contact phone number: [phone] Relationship to Patient: Pharmacy Provider: Reyes Bowling Practice: Neurology Chief Complaint/Reason for Call: Pharmacy called to request a prior authorization for Gammacore. Please submit PA as requested. Best time of day caller can be reached: Any Patient advised that office/PCP has 24-48 business hours to return their call: Yes [facility] 11-29-2024 Telephone encounter Note Called and relayed message [facility] 11-29-2024 Telephone encounter Note ----- Message from Josh Mccann MD sent at 11/22/2024 8:18 AM EDT ----- Please inform the patient of the results of the cervical x-ray unremarkable cervical spine study with no significant abnormalities ----- Message ----- From: Interface, Radiology Results In Sent: 11/22/2024 12:04 AM EDT To: Josh Mccann MD [facility] 11-29-2024 Miscellaneous Notes Called and relayed message ----- Message from Josh Mccann MD sent at 11/22/2024 8:18 AM EDT ----- Please inform the patient of the results of the cervical x-ray unremarkable cervical spine study with no significant abnormalities ----- Message ----- From: Interface, Radiology Results In Sent: 11/22/2024 12:04 AM EDT To: Josh Mccann MD documented in this encounter [facility] 11-17-2024 History of Presen t illness Narrative Images from the original note were not included. [facility] [place] [address] [facility] [address] Dept: [phone] Dept Chief Complaint Patient presents with Back Pain Neck Pain Foot Pain New Patient Pain Pt suffers from migraines daily SUBJECTIVE HPI: Rosy Rawls is a 29 y.o. year old here today for evaluation and treatment of chronic neck and upper back pain. Patient has been suffering from the pain for almost 5 years as well as suffering from migraine headaches which has been very consistent nonresponsive to medication regimens. Patient states that the pain in the neck area and upper back area is mostly in the middle of her neck and back. She denies any radiation of the pain to the upper extremity. Patient has tried chiropractic adjustments with limited benefit. Patient also has been on tizanidine in the past and has been on Cymbalta which has not been well-tolerated. Review of system, social history, family history, surgical history were all reviewed with the patient and in the chart. OBJECTIVE Vitals: 11/17/24 0820 BP: 127/88 BP Location: Right arm Patient Position: Sitting BP Cuff Size: Large adult Pulse: 73 Weight: 238 lb (108 kg) Height: 5' 9 (1.753 m) GENERAL: On examining the patient, patient not in acute distress. HEENT: Reveals neck supple. No thyromegaly on inspection. NEUROLOGIC: The patient is awake, alert, oriented x3. Muscle strength bilateral symmetrical 5/5 in the upper and lower extremity. No evidence of light touch perception deficits. Straight leg raise was asymptomatic. Deep tendon reflexes were equivocal bilateral symmetrical in upper and lower extremity MUSCULO-SKELETAL: Tenderness involving the cervical and upper thoracic paraspinal muscle area on both sides on palpation and range of motion. ASSESSMENT Chronic conditions not at goal 1. Myofascial neck pain 2. Cervical spine pain Medications: Current Medications[1] PLAN 1. Review of the records including neurology records as well as imaging studies in the form of lumbar puncture and MR of the brain 2. This point the patient's pain seems to be closely related to her migraine status with the significant myofascial component of the pain. 3. I will start patient on baclofen 10 mg to be used twice daily to see if this would offer her some muscle relaxation to help with the relief of the pain. 4. I will order an x-ray of the cervical spine for further evaluation of the affected area. I will see patient back in 3 months for reevaluation. Please note patient was offered the opportunity to have a early head start teacher in the examining room. . Thank you, for allowing me to participate in the care of the patient if you have any questions regarding plan of care please do not hesitate to contact me. Patient was seen and examined during the visit today. Together we discussed the main issues affecting the patient and my medical opinion including treatment options and recommendations. No certainties were made, none were implied. Patient expressed understanding and agreement to our plan going forward. Patient was advised to read the AVS and instructed to contact myself via [facility] or call the office anytime with any questions or concerns. This document was created using voice recognition software. Spelling, grammar and syntax errors are possible. [1] Current Outpatient Medications Medication Sig Dispense Refill atogepant (Qulipta) 60 MG tablet Take 1 tablet (60 mg) by mouth daily. 30 tablet 5 FLUoxetine (PROzac) 10 MG capsule TAKE 1 CAPSULE BY MOUTH ONCE DAILY FOR 14 DAYS, THEN TAKE 1 CAPSULE EVERY OTHER DAY. hydrOXYzine pamoate (Vistaril) 50 MG capsule TAKE 2 CAPSULES BY MOUTH 4 TIMES DAILY lamoTRIgine (LaMICtal) 100 MG tablet Take 100 mg by mouth every evening. LORazepam (Ativan) 0.5 MG tablet Take 0.5 mg by mouth daily as needed for anxiety. propranolol LA (Inderal LA) 80 MG 24 hr capsule Take 1 capsule (80 mg) by mouth daily. Do not crush, chew, or split. 30 capsule 2 traMADol (Ultram) 50 MG tablet Take 50 mg by mouth 2 times daily as needed. traZODone (Desyrel) 50 MG tablet TAKE TWO TABLETS BY MOUTH EVERY DAY AT BEDTIME tretinoin (Retin-A) 0.05 % cream APPLY A THIN LAYER TO FULL FACE EVERY OTHER NIGHT TO NIGHTLY TOLERATED baclofen (Lioresal) 10 MG tablet Take 1 tablet (10 mg) by mouth 2 times daily. 60 tablet 1 No current facility-administered medications for this visit. documented in this encounter [facility] 11-03-2024 History of Presen t illness Narrative [facility] Primary Care Physician: Anirudh Jerez MD Chief Complaint: Chief Complaint Patient presents with Follow-up 2 month follow up for chronic migraine Main Diagnosis: Diagnosis Plan 1. Intractable chronic migraine without aura and without status migrainosus History: given by the patient and EMR. EMR was personally reviewed prior to today's visit and included review of prior notes and intermediate communications. HPI: Ms. Rosy Rawls is a 29 y.o. female who is seen in the [facility]OLOG[facility] of [facility] for complaint of headaches. Patient states [...] not drink alcohol. The last visit was 09/08/2024 with this provider where DHE infusions were ordered for treatment of continued migraine pain. Headache characteristics: Description of pain: throbbing pain, bilateral in the occipital area. Duration of individual headaches: 8-36 hour(s), frequency weekly. Associated symptoms: aura, light sensitivity, nausea, and sound sensitivity. Pain relief: unable to obtain relief with OTC meds. Precipitating factors: stress. INTERVAL HISTORY: Today, the patient returns for follow up of migraine pain on current medication regimen. The patient reports continued migraine pain despite intervention. She states previously prescribed propranolol and qulipta helped some with management of migraine pain. The patient is requesting to restart both medications. Prescriptions sent as requested. Discussed with the patient previously starting ketamine infusions to help with migraine pain. The patient states psychiatry sent referral for ketamine infusion which may also be beneficial for mental health diagnoses. She states she has transitioned off cymbalta. A month ago stopped cymbalta but had side effects. Resarted at 20 mg every other day due to withdrawal side effects. Low dose prozac to help with withdrawal. She reports also receiving Tramadol to help with symptoms. The patient reports increase in headache pain after DHE infusions. The patient denies side effects from medications and no new neurological deficits. Current Headache Meds: Qulipta Propranolol Side effects: No known side effects Previous [...] reaction(s): HIVES Sulfamethoxazole-Trimethoprim Hives Other reaction(s): hives Current Outpatient Medications Medication Sig Dispense Refill atogepant (Qulipta) 60 MG tablet Take 1 tablet (60 mg) by mouth daily. 30 tablet 5 DULoxetine (Cymbalta) [address] capsule Take 30 mg by mouth every morning. Do not crush or chew. (Patient not taking: Reported on 11/03/2024) hydrOXYzine pamoate (Vistaril) 50 MG capsule TAKE 2 CAPSULES BY MOUTH 4 TIMES DAILY lamoTRIgine (LaMICtal) 100 MG tablet Take 100 mg by mouth every evening. propranolol LA (Inderal LA) 80 MG 24 hr capsule Take 1 capsule (80 mg) by mouth daily. Do not crush, chew, or split. 30 [...] reviewed and are negative. PHYSICAL EXAM: BP 125/67 Pulse 69 Temp 36 C (96.8 F) (Temporal) Physical Exam Vitals and nursing note reviewed. Constitutional: Appearance: Normal appearance. She is normal weight. HENT: Head: Normocephalic. Nose: Nose normal. Eyes: Extraocular Movements: Extraocular movements intact. Conjunctiva/sclera: Conjunctivae normal. Pulmonary: Effort: Pulmonary effort is normal. Musculoskeletal: [...] and without status migrainosus PLAN: 1. Patient is working to get Ketamine infusion approved through mental health provider which will also help with migraine control 2. Patient will continue propranolol and Qulipta as prescribed for migraine prevention. 3. Return to neurology clinic in 3 months, sooner if needed. I hope that all of your questions and concerns were addressed during today's visit. Please don't hesitate to call the Department of Neurology at [phone] for any further concerns. Sincerely, JACE Romero CNP The above diagnosis and management plan were discussed at length with the patient who voiced understanding and agreed. Electronically signed by: JACE Romero CNP 11/03/2024 2:41 PM Patient was able to ambulate safely to the examination room. Provider was not notified of possible fall risk Pt also reports that she was prescribed a small dose of Prozac. Has not yet started taking. Did not know the dosage. documented in this encounter [facility] 10-20-2024 Telephone encounter Note Spoke with Reyes Bowling NP and Dr Smith. DHE can cause cystitis-so patient should not come for 3rd infusion today. Rest, increase fluids-no new meds today-and patient cannot tolerate Prednisone. Call with update if she needs anything further. Appt today cancelled [facility] 10-20-2024 Miscellaneous Notes Spoke with Reyes Bowling NP and Dr Smith. DHE can cause cystitis-so patient should not come for 3rd infusion today. Rest, increase fluids-no new meds today-and patient cannot tolerate Prednisone. Call with update if she needs anything further. Appt today cancelled Name of Caller: Rosy Contact Reason for [...] Rosy back this morning. Office Name: Neurology documented in this encounter [facility] 10-20-2024 Telephone encounter Note Name of Caller: Rosy [...] Rosy back this morning. Office Name: Neurology [facility] 10-19-2024 History of Presen t illness Narrative Patient tolerated infusion well. Discharged home with friend Cosigned by Bria Smith MD at 10/19/2024 3:07 PM EDT documented in this encounter [facility] 10-18-2024 History of Presen t illness Narrative Patient tolerated infusion well. Discharged home with friend Cosigned by Bria Smith MD at 10/18/2024 4:50 PM EDT documented in this encounter [facility] 09-08-2024 History of Presen t illness Narrative [facility] Primary Care Physician: [...] is seen in the NEUROLOGY CLINIC of [facility] for complaint of headaches. Patient states [...] side effects Previous medication trials: Topiramate Propranolol Tg Garber Past Medical History: Diagnosis Date Abnormal Pap [...] to call the Department of Neurology at [phone] for any further concerns. Sincerely, JayeJACE Daniels CNP The above diagnosis and management plan were discussed at length with the patient who voiced understanding and agreed. Electronically signed by: JACE Romero CNP 09/08/2024 1:53 PM documented in this encounter [facility] 09-07-2024 Telephone encounter Note Patient prefers to wait for 3 day infusion at end of September. Scheduled for 10-18,30,31 [facility] 09-07-2024 Miscellaneous Notes Patient prefers to wait for 3 day infusion at end of September. Scheduled for 10-18,30,31 Name of Caller: Rosy Contact Reason for Appointment: Rosy returned call to Mar to schedule her infusion. Please reach out to Rosy when available. Office Name: [facility] Neurology documented in this encounter [facility] 09-07-2024 Telephone encounter Note Name of Caller: Rosy Contact Reason for Appointment: Rosy returned call to Mar to schedule her infusion. Please reach out to Rosy when available. Office Name: [facility] Neurology [facility] 07-05-2024 History of Presen t illness Narrative [facility] Primary Care Physician: [...] is seen in the NEUROLOGY CLINIC of [facility] for complaint of headaches. Patient states [...] Diagnosis Date Abnormal Pap smear of cervix 2017 Anxiety Cystitis, interstitial Depression Migraine Past Surgical [...] to call the Department of Neurology at [phone] for any further concerns. Sincerely, JACE Romero CNP The above diagnosis and management plan were discussed at length with the patient who voiced understanding and agreed. Electronically signed by: JACE Romero CNP 07/05/2024 1:07 PM documented in this encounter [facility] 06-22-2024 Miscellaneous Notes Patient verbalized readiness to leave. Patient left with all medications, discharge paperwork, and verbalized all belongings present. Patient and family verbalized understanding of patient education. Patient left in wheelchair with family to drive. All questions answered. documented in this encounter [facility] 06-22-2024 Nurse Note Patient verbalized readiness to leave. Patient left with all medications, discharge paperwork, and verbalized all belongings present. Patient and family verbalized understanding of patient education. Patient left in wheelchair with family to drive. All questions answered. [facility] 06-22-2024 Note Interventional Radio logy Post Procedure: Rosy tolerated her Lumbar Puncture very well. She is alert and in no distress. She denies discomfort. Band aid to lower back LP site is dry and intact. No bleeding. No hematoma. Transfer to [facility] for recovery and discharge. [facility] 06-22-2024 Nurse Note Interventional Radiology Post Procedure: Rosy tolerated her Lumbar Puncture very well. She is alert and in no distress. She denies discomfort. Band aid to lower back LP site is dry and intact. No bleeding. No hematoma. Transfer to [facility] for recovery and discharge. [facility] 06-22-2024 Nurse Note Interventional Radiology Post Procedure: Rosy tolerated her Lumbar Puncture very well. She is alert and in no distress. She denies discomfort. Band aid to lower back LP site is dry and intact. No bleeding. No hematoma. Transfer to [facility] for recovery and discharge. IR Procedures: Rosy is here at [facility] for a LP . She has verbalized understanding of the procedural instructions. Dr. Spangler has spoken to her. History, allergies, medications and lab results reviewed. Informed consent has been signed. Prepped and draped in sterile fashion. Time out performed. She is on a monitor. Patient ready for the procedure. IR is ready. documented in this encounter [facility] 06-22-2024 Note IR Procedures: Rosy is here at [facility] for a LP . She has verbalized understanding of the procedural instructions. Dr. Spangler has spoken to her. History, allergies, medications and lab results reviewed. Informed consent has been signed. Prepped and draped in sterile fashion. Time out performed. She is on a monitor. Patient ready for the procedure. IR is ready. [facility] 06-22-2024 Nurse Note IR Procedures: Rosy is here at [facility] for a LP . She has verbalized understanding of the procedural instructions. Dr. Spangler has spoken to her. History, allergies, medications and lab results reviewed. Informed consent has been signed. Prepped and draped in sterile fashion. Time out performed. She is on a monitor. Patient ready for the procedure. IR is ready. [facility] 06-17-2024 Telephone encounter Note Results request faxed to PCP [facility] 06-17-2024 Miscellaneous Notes Results request faxed to [...] Reason for Disposition Mild depression Protocols used: [id number] documented in this encounter [facility] 06-17-2024 Note Formatting of this n ote [...] blood thinners or if they have questions/concerns. [facility] 06-17-2024 Miscellaneous Notes Left message for patient [...] they have questions/concerns. documented in this encounter [facility] 06-17-2024 Telephone encounter Note Called and spoke [...] in. The patient agreed and verbalized understanding. [facility] 06-17-2024 Telephone encounter Note Please advise the patient the results of the MRI were received. Additional testing was ordered to further evaluate. An order for a lumbar puncture was placed. [facility] 06-17-2024 Telephone encounter Note Noted [facility] 06-17-2024 Miscellaneous Notes Noted Name of caller: Chasidy Contact phone number: [phone] Relationship to Patient: PCP office Provider: SKIP Bowling Practice: [facility] Chief Complaint/Reason for Call: Chasidy called [...] their call: N/A documented in this encounter [facility] 06-17-2024 Telephone encounter Note Lmovm. Please release message to patient as written. If patient had more recent MRI please ask where it was done so that we can request records. [facility] 06-17-2024 Telephone encounter Note Name of caller: Chasidy Contact phone number: [phone] Relationship to Patient: PCP office Provider: SKIP Bowling Practice: [facility] Chief Complaint/Reason for Call: Chasidy called [...] business hours to return their call: N/A [facility] 06-17-2024 Telephone encounter Note Please advise the patient the last MRI brain was 2021 that I can see and it is not concerning for MS. Most recent labs were also normal. It is advised that the patient follow up with psychiatry for depression symptoms. [facility] 06-17-2024 Telephone encounter Note S: Patient's friend [...] Reason for Disposition Mild depression Protocols used: [id number] [facility] 05-24-2024 History of Presen t illness Narrative [facility] Primary Care Physician: [...] is seen in the NEUROLOGY CLINIC of [facility] for complaint of headaches. Patient states [...] to call the Department of Neurology at [phone] for any further concerns. Sincerely, JACE Romero CNP The above diagnosis and management plan were discussed at length with the patient who voiced understanding and agreed. Electronically signed by: JACE Romero CNP 05/24/2024 10:36 AM documented in this encounter [facility] 04-14-2024 Telephone encounter Note Requested Prescriptions Signed Prescriptions Disp Refills naratriptan (Amerge) 2.5 MG tablet 9 tablet 3 Sig: Take 1 tablet (2.5 mg) by mouth Once as needed for migraine (may repeat x1). Authorizing Provider: JAYE BOWLING [facility] 04-14-2024 Miscellaneous Notes Requested Prescriptions Signed Prescriptions [...] Name of caller: Rosy Contact phone number: [phone] Relationship to Patient: patient Provider: SKIP Bowling Practice: Neuro Chief Complaint/Reason for Call: Pt states the medication she was just prescribed on 04/11/24 has not been helping her with headaches. Please advise. Best time of day caller can be reached: any Patient advised that office/PCP has 24-48 business hours to return their call: N/A documented in this encounter [facility] [place] 04-14-2024 Telephone encounter Note [facility] released message to patient as written. [facility] [place] 04-14-2024 Telephone encounter Note Please inquire as to if the patient has tried the Reyvow sample. She can use it today if not. The patient can also use the Ajovy injection today. [facility] [place] 04-14-2024 Telephone encounter Note Name of caller: Rosy Contact phone number: [phone] Relationship to Patient: patient Provider: SKIP Bowling Practice: Neuro Chief Complaint/Reason for Call: Pt states the medication she was just prescribed on 04/11/24 has not been helping her with headaches. Please advise. Best time of day caller can be reached: any Patient advised that office/PCP has 24-48 business hours to return their call: N/A [facility] [place] 04-11-2024 History of Presen t illness Narrative [facility] Primary Care Physician: [...] is seen in the NEUROLOGY CLINIC of [facility] for complaint of headaches. Patient states [...] to call the Department of Neurology at [phone] for any further concerns. Sincerely, JACE Romero [...] minutes after injection, tolerated procedure well. NDC: 76835-867-15 Lot: [id number] Exp: 08/19/2024 documented in this encounter [facility] 04-11-2024 Note The patient, Rosy Gan rd'moni, identity was verified by name and . Informed patient of procedure. Received informed consent to proceed with Ketorolac 60 mg/ 2 mL injection. Injection given as ordered by JACE Romero CNP. Rosy Rawls waited 15 minutes after injection, tolerated procedure well. NDC: 89546-349-96 Lot: [id number] Exp: 08/19/2024 [facility] 02-15-2024 Telephone encounter Note Requested Prescriptions Signed Prescriptions Disp Refills fremanezumab (Ajovy) 225 MG/1.5ML auto-injector 4.5 mL 3 Sig: Inject 1 Pen (225 mg) under the skin every 30 (thirty) days. Authorizing Provider: JAYE BOWLING [facility] 02-15-2024 Miscellaneous Notes Requested Prescriptions Signed Prescriptions Disp Refills fremanezumab (Ajovy) 225 MG/1.5ML auto-injector 4.5 mL 3 Sig: Inject 1 Pen (225 mg) under the skin every 30 (thirty) days. Authorizing Provider: JAYE BOWLING [facility] has obtained approved for Ajovy and pended Rx. Please route to [facility]. documented in this encounter [facility] 02-15-2024 Telephone encounter Note [facility] has obtained approved for Ajovy and pended Rx. Please route to [facility]. [facility] 02-12-2024 Telephone encounter Note I can print off this form. I just want to double check that this isnt something [facility] helps with. Patient is requesting TEVA rom gets filled out to help pay for Ajovy. [facility] 02-12-2024 Miscellaneous Notes I can print off this form. I just want to double check that this isnt something [facility] helps with. Patient is requesting TEVA rom gets filled out to help pay for Ajovy. Name of caller: Rosy Contact phone number: [phone] Relationship to Patient: patient Provider: SKIP Bowling Practice: [facility] Chief Complaint/Reason for Call: Pt states she received a call from [employer] [facility] who advised that they have not been able to get in contact with anyone at the office. Pt states that an attempt was even made today. Pt states she was advised that the form can be found and downloaded off of their website and faxed back to them for processing. Pt provided website [employer] and fax# [phone]. Pt states she would like to be notified once this has been completed. Pt states she has chronic migraines and really needs for this to be completed as soon as possible. Please review. Best time of day caller can be reached: any Patient advised that office/PCP has 24-48 business hours to return their call: Yes Called and left message with [employer]. Will provide information once they call back Name of caller: Rosy Contact phone number: [phone] Relationship to Patient: patient Provider: LEXY Bowling Practice: Neuro Chief Complaint/Reason for Call: Rosy said that [facility] called to see about the forms and to discuss the patient. Non one answered or responded. She would like a call to the [facility] at [phone] so she can be set up. Please advise. Best time of day caller can be reached: any Patient advised that office/PCP has 24-48 business hours to return their call: Yes Noted. FYI: Name of caller: Rosy Contact phone number: [phone] Relationship to Patient: patient Provider: SKIP Bowling Practice: [facility] Chief Complaint/Reason for Call: Patient states that her insurance will no longer cover Ajovy and she is in the middle of the try and fail stage currently trying Emgality, which is not working at all. Patient states that instead of going three months in pain to complete the try and fail medications she would like to sign [facility] to get payment assistance for the Ajovy since it worked so well. Patient states that a foundation independent sales representative will be reaching out to the office to request an active prescription. Please advise. Best time of day caller can be reached: Any Patient advised that office/PCP has 24-48 business hours to return their call: No documented in this encounter [facility] [place] 02-12-2024 Telephone encounter Note Name of caller: Rosy Contact phone number: [phone] Relationship to Patient: patient Provider: SKIP Bowling Practice: [facility] Chief Complaint/Reason for Call: Pt states she received a call from [facility] who advised that they have not been able to get in contact with anyone at the office. Pt states that an attempt was even made today. Pt states she was advised that the form can be found and downloaded off of their website and faxed back to them for processing. Pt provided website [employer] and fax# [phone]. Pt states she would like to be notified once this has been completed. Pt states she has chronic migraines and really needs for this to be completed as soon as possible. Please review. Best time of day caller can be reached: any Patient advised that office/PCP has 24-48 business hours to return their call: Yes [facility] [place] 02-03-2024 Telephone encounter Note Called and left message with [employer]. Will provide information once they call back [place] 02-03-2024 Miscellaneous Notes Called and left message with [employer]. Will provide information once they call back Name of caller: Rosy Contact phone number: [phone] Relationship to Patient: patient Provider: LEXY Bowling Practice: Neuro Chief Complaint/Reason for Call: Rosy said that [facility] called to see about the forms and to discuss the patient. Non one answered or responded. She would like a call to the [facility] at [phone] so she can be set up. Please advise. Best time of day caller can be reached: any Patient advised that office/PCP has 24-48 business hours to return their call: Yes Noted. FYI: Name of caller: Rosy Contact phone number: [phone] Relationship to Patient: patient Provider: SKIP Bowling Practice: [facility] Chief Complaint/Reason for Call: Patient states that her insurance will no longer cover Ajovy and she is in the middle of the try and fail stage currently trying Emgality, which is not working at all. Patient states that instead of going three months in pain to complete the try and fail medications she would like to sign up with [facility] to get payment assistance for the Ajovy since it worked so well. Patient states that a [facility] independent sales representative will be reaching out to the office to request an active prescription. Please advise. Best time of day caller can be reached: Any Patient advised that office/PCP has 24-48 business hours to return their call: No documented in this encounter [facility] 02-01-2024 Telephone encounter Note Name of caller: Rosy Contact phone number: [phone] Relationship to Patient: patient Provider: LEXY Bowling Practice: Neuro Chief Complaint/Reason for Call: Rosy said that [facility] called to see about the forms and to discuss the patient. Non one answered or responded. She would like a call to the [facility] at [phone] so she can be set up. Please advise. Best time of day caller can be reached: any Patient advised that office/PCP has 24-48 business hours to return their call: Yes [facility] 02-01-2024 Miscellaneous Notes Name of caller: Rosy Contact phone number: [phone] Relationship to Patient: patient Provider: LEXY Bowling Practice: Neuro Chief Complaint/Reason for Call: Rosy said that [facility] called to see about the forms and to discuss the patient. Non one answered or responded. She would like a call to the [facility] at [phone] so she can be set up. Please advise. Best time of day caller can be reached: any Patient advised that office/PCP has 24-48 business hours to return their call: Yes Noted. FYI: Name of caller: Rosy Contact phone number: [phone] Relationship to Patient: patient Provider: SKIP Bowling Practice: [facility] Chief Complaint/Reason for Call: Patient states that her insurance will no longer cover Ajovy and she is in the middle of the try and fail stage currently trying Emgality, which is not working at all. Patient states that instead of going three months in pain to complete the try and fail medications she would like to sign up with [facility] to get payment assistance for the Ajovy since it worked so well. Patient states that a [facility] independent sales representative will be reaching out to the office to request an active prescription. Please advise. Best time of day caller can be reached: Any Patient advised that office/PCP has 24-48 business hours to return their call: No documented in this encounter [facility] 01-11-2024 Telephone encounter Note Noted. [facility] 01-11-2024 Telephone encounter Note FYI: Name of caller: Rosy Contact phone number: [phone] Relationship to Patient: patient Provider: SKIP Bowling Practice: [facility] Chief Complaint/Reason for Call: Patient states that her insurance will no longer cover Ajovy and she is in the middle of the try and fail stage currently trying Emgality, which is not working at all. Patient states that instead of going three months in pain to complete the try and fail medications she would like to sign up with [employer] [facility] to get payment assistance for the Ajovy since it worked so well. Patient states that a [facility] independent sales representative will be reaching out to the office to request an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 Comments Procedure Headache infusion Specialty Diagnoses / Procedures Referred By Baron perry Referred To Contact Diagnoses Chronic migraine without aura without status migrainosus, not intractable Intractable chronic migraine without aura and without status migrainosus Jaye Bowling APRN - CNP [address] [place] [address] Phone: tel: fax: Jaye Bowling APRN - CNP [address] [place] [address] Phone: tel: fax: Referral ID Status Reason Start Date Expiration Date V isits Requested Visits Authorized [id number] Pending Review 10/18/2024 10/13/2025 1 1 Reason Comments Follow-up 2 month follow up fo r chronic migraine Reason Onset Date Comments Other 10/20/2024 infusioin Reason Comments Back Pain Neck Pain Foot Pain New Patient Pain Pt suffers from migr aines daily Specialty Diagnoses / Procedures Referred By Contac t Referred To Contact Pain Medicine Diagnoses Cervical spine pain Procedures MA OFFICE/OUTPATIENT NEW HIGH MDM 60 MINUTES Jaye Bowling, MACHINIST INSTRUCTOR - MILITARY COMMUNICATIONS SPECIALIST [address] [place] [address] Phone: tel: fax: [facility] [place] [address] [place] [address] Phone: tel: fax: Referral ID Status Reason Start Date Expiration Date Visits Requested Visits Authorized Pending Review Specialty Services Required 10/24/2024 10/24/2025 1 1 Reason Onset Date Comments Med Management 12/01/2024 [facility] Care Teams (unrecognized sec tion and content) Water Purification Chemist Relationship Specialty Start Date End Date Eduard Coppola DO [address] [phone] PCP - General 11/20/15 Water Purification Chemist Relationship Specialty Start Date End Date Eduard Coppola DO [address] [address] PCP - General 11/20/15 Water Purification Chemist Relationship Specialty Start Date End Date Eduard Coppola DO [address] [address] PCP - General 11/20/15 Water Purification Chemist Relationship Specialty Start Date End Date Eduard Coppola DO [address] [address] PCP - General 11/20/15 Water Purification Chemist Relationship Specialty Start Date End Date Anirudh Jerez MD [address] [place] [address] [address] [place] [address] PCP - General Family Medicine 10/22/22 Team Status: Active Member Role Status Dates Anirudh Jerez MD Primary Care Provider Active Team Status: Inactive Member Role Status Dates Dr. Jonathan Ernst DO Emergency Provider Active Anirudh Jerez MD Primary Care Provider Active Water Purification Chemist Relationship Specialty Start Date End Date Eduard Coppola DO [address] [address] PCP - General Family Medicine 10/15/18 Team Status: Inactive Member Role Status Dates Anirudh Jerez MD Primary Care Provide r, Attending Provider, Referring Provider Active Team Status: Inactive Member Role Status Dates Dr. Jonathan Ernst DO Attending Provider, Emergency P rovider Active Anirudh Jerez MD Primary Care Provider Active Water Purification Chemist Relationship Specialty Start Date End Date Anirudh Jerez MD [address] [place] [address] [address] [place] [address] PCP - General Family Medicine 10/22/22 Water Purification Chemist Relationship Specialty Start Date End Date Anirudh Jerez MD [address] [place] [address] [address] [place] [address] PCP - General Family Medicine 10/22/22 Water Purification Chemist Relationship Specialty Start Date End Date Anirudh Jerez MD [address] [place] [address] [address] [place] [address] PCP - General Family Medicine 10/22/22 Water Purification Chemist Relationship Specialty Start Date End Date Anirudh Jerez MD [address] [place] [address] [address] [place] [address] PCP - General Family Medicine 10/22/22 Water Purification Chemist Relationship Specialty Start Date End Date Eduard Coppola DO [address] [address] PCP - General Family Medicine 10/15/18 Water Purification Chemist Relationship Specialty Start Date End Date Anirudh Jerez MD [address] [facility] [address] [place] [address] PCP - General Family Medicine 10/22/22 Water Purification Chemist Relationship Specialty Start Date End Date Anirudh Jerez MD [address] [place] [address] [address] [place] [address] PCP - General Family Medicine 10/22/22 Water Purification Chemist Relationship Specialty Start Date End Date Anirudh Jerez MD [address] [place] [address] [address] [place] [address] PCP - General Family Medicine 10/22/22 Water Purification Chemist Relationship Specialty Start Date End Date Anirudh Jerez MD [address] [place] [address] [address] [place] [address] PCP - General Family Medicine 10/22/22 Water Purification Chemist Relationship Specialty Start Date End Date Anirudh Jerez MD [address] [facility] [address] [place] [address] PCP - General Family Medicine 10/22/22 Water Purification Chemist Relationship Specialty Start Date End Date Anirudh Jerez MD [address] [facility] [address] [place] [address] PCP - General Family Medicine 10/22/22 Water Purification Chemist Relationship Specialty Start Date End Date Anirudh Jerez MD [address] [facility] [address] [place] [address] PCP - General Family Medicine 10/22/22 Water Purification Chemist Relationship Specialty Start Date End Date Anirudh Jerez MD [address] [facility] [address] [place] [address] PCP - General Family Medicine 10/22/22 Water Purification Chemist Relationship Specialty Start Date End Date Anirudh Jerez MD [address] [place] [address] [address] [place] [address] PCP - General Family Medicine 10/22/22 Water Purification Chemist Relationship Specialty Start Date End Date Anirudh Jerez MD [address] [place] [address] [address] [place] [address] PCP - General Family Medicine 10/22/22 Water Purification Chemist Relationship Specialty Start Date End Date Anirudh Jerez MD [address] [facility] [address] [place] [address] PCP - General Family Medicine 10/22/22 Water Purification Chemist Relationship Specialty Start Date End Date Anirudh Jerez MD [address] [facility] [address] [place] [address] PCP - General Family Medicine 10/22/22 Water Purification Chemist Relationship Specialty Start Date End Date Anirudh Jerez MD [address] [facility] [address] [place] [address] PCP - General Family Medicine 10/22/22 Water Purification Chemist Relationship Specialty Start Date End Date Anirudh Jerez MD [address] [place] [address] [address] [place] [address] PCP - General Family Medicine 10/22/22 Water Purification Chemist Relationship Specialty Start Date End Date Anirudh Jerez MD [address] [place] [address] [address] [place] [address] PCP - General Family Medicine 10/22/22 Water Purification Chemist Relationship Specialty Start Date End Date Anirudh Jerez MD [address] [place] [address] [address] [place] [address] PCP - General Family Medicine 10/22/22 Water Purification Chemist Relationship Specialty Start Date End Date Anirudh Jerez MD [address] [place] [address] [address] [place] [address] PCP - General Family Medicine 10/22/22 Water Purification Chemist Relationship Specialty Start Date End Date Anirudh Jerez MD [address] [place] [address] [address] [place] [address] PCP - General Family Medicine 10/22/22 Water Purification Chemist Relationship Specialty Start Date End Date Anirudh Jerez MD [address] [place] [address] [address] [place] [address] PCP - General Family Medicine 10/22/22 Goals [...] or prosecute any alcohol or drug abuse patient.[facility] CampusIn the event this information is protected by the Federal Confidentiality of Alcohol and Drug Abuse Patient Records regulations: The Federal rules restrict any use of the information to criminally investigate or prosecute any alcohol or drug abuse patient.[facility] PRN Active and Recently Administ ered Medications [...] BE BASED ON THE PRIMARY CLINICAL RECORDS. [employer] [facility]. provides no warranty or guarantee of the accuracy or completeness of information in this document.
== END | disposition home or self-care (01) ==
LOC: MTLAB 15:49
PROVIDERS: PCP Family Medicine; Referring Provider Family Medicine; Visit Provider Family Medicine
DX: G43.909 Migraine, unspecified, not intractable, without status migrainosus (principal)
CPT/HCPCS: 36415; 82175; 83018; 83655; 83825

== ENCOUNTER → 2025-03-22 | Outpatient (CLI) | payer MEDICAID, SELFPAY ==
--- OUTSIDE RECORDS SUMMARY | 2025-03-22 09:34 | XMS RPT_ITS | CCD ---
Author Organization [facility] Care Team Providers Care Conversion Developer Name Role Phone Chanel Esparza Unavailable Unavailable [...] EDUARD COPPOLA DO Primary Care Physician [phone] BRIA SMITH MD Attending Unavailable DR. EDUARD [...] Attending Unavailable Viky, Chalon Primary Care Unavailable Ivky, Chalon Referring Unavailable Viky, Chalon Attending Unavailable [...] sources) Amoxicillin; Translations: [amoxicillin] Drug Allergy 05-08-19 [facility] (20 sources) Erythromycin; Translations: [erythromycin] Drug Allergy 05-08-19 [facility] (1 source) Penicillin; Translations: [penicillin] Drug Allergy [facility] (20 sources) Sulfamethoxazole / Trimethoprim; Translations: [sulfamethoxazole-tr imethoprim] Drug Allergy 05-08-19 [facility] (20 sources) Egg white Allergy to substance 10-09-19 [facility] (20 sources) Penicillins; Translations: [PENICILLINS] Drug Allergy 05-08-19 [facility] (2 sources) Penicillins Allergy to substance 01-15-20 [facility] (2 sources) Sulfamethoxazole Drug Allergy 01-15-20 [facility] (2 sources) Trimethoprim Drug Allergy 01-15-20 [facility] (3 sources) egg extract; Translations: [EGG] Drug Allergy 10-09-19 [facility] (2 sources) Penicillins Drug Allergy 10-09-19 [facility] (8 sources) EPINEPHrine; Translations: [EPINEPHRINE] Drug Allergy 03-02-20 19 Other: See Comments [facility] (1 source) Sulfamethoxazole / Trimethoprim; Translations: [SULFAMETHOXAZOLE-TR IMETHOPRIM] Drug Allergy 05-08-19 [facility] (1 source) Amoxicillin Drug Allergy 12-23-19 [facility] (1 source) Erythromycin Drug Allergy 12-23-19 [facility] (1 source) Penicillins Drug allergy (disorder) 12-23-19 [facility] (1 source) Sulfamethoxazole Drug Allergy 12-23-19 [facility] (1 source) Trimethoprim Drug Allergy 12-23-19 [facility] Repository Medications Current Medications Medication Drug Class(es) [...] NS. Start: 09-14-2024 take 1 tablet by [facility] once daily as needed for anxiety LORazepam [...] less into rate field of order. thyroid ([facility] living) 15 mg oral tablet (7 sources) Start: 01-08-2022 End: 10-23-2022 take 3 tablets by mouth once daily in the morning WOODWORKING BELT SANDER Thyroid 15 MG tablet TAKE 3 TABLETS [...] PTon 01-25-2025 Inital Evaluation (1) - PT [facility] [place] [address] / REHABILITATION SERVICES INITIAL EVALUATION MR#: [id number] Acct: [id number] Name: ROSY RAWLS Rep #: [id number] : 1995 29 From: Jayna Churchill DPT, OCS, CSCS Referring Dr.: Dr. Santi Singh DPM Status: REG RCR Insurance: [facility] STUDENT RESOURCES [facility] Patient's Visit Information Visit Information Visit Information: ROSY RAWLS is a 29 year old F referred to Physical Therapy by Dr. Santi Singh DPM with a diagnosis of L PFitis. Date of Evaluation: 01/25/25 Physical Therapist: Jayna Churchill DPT, OCS, CSCS Visit Plan Frequency: 2-3x /Week Duration: 4-6 Weeks Plan: 2-3x/week for 4 weeks for: IE HEP wall PF stretch 30" 4x 2x/day, rollout PF L 2 min [...] to be FAXED BACK to us at [phone] for Medicare purposes. For Medicare only, by signing this I certify the plan of care. Please let me know if there are questions or concerns regarding this plan of care. Physician Signature: D ate: (more content not included)... Normal [facility] PAP I-G w/rfx hrHPV-Aptimaon 12-29-2024 ADEQ Comment Normal . [facility] Comment on above: Order Comment: Speci men Comment: [id number] Specimen Comment: No. of containers..01 ThinPrep Vial Result Comment: Sati sfactory for evaluation. Endocervical and/or squamous metaplastic cells (endocervical component) are present. Performed By: #### L 7400.0353 #### [facility] [address] [place], [place], [address] COMM . Normal . [facility] Comment on above: Order Comment: Speci men Comment: [id number] Specimen Comment: No. of containers..01 ThinPrep Vial Performed By: #### L 7400.0353 #### [facility] [address] [place], [place], [address] COMMENT Comment Normal . [facility] Comment on above: Order Comment: Speci men Comment: [id number] Specimen Comment: No. of containers..01 ThinPrep Vial Result Comment: This liquid based ThinPrep(R) pap test was screened with the use of an image guided system. Performed By: #### L 7400.0353 #### [facility] [address] [place], [place], [address] DIAG Comment Normal . [facility] Comment on above: Order Comment: Speci men Comment: [id number] Specimen Comment: No. of containers..01 ThinPrep Vial Result Comment: NEGA TIVE FOR INTRAEPITHELIAL LESION OR MALIGNANCY. Performed By: #### L 7400.0353 #### [facility] [address] [place], [address] HPV RFLX Comment Normal . [facility] Comment on above: Order Comment: Speci men Comment: [id number] Specimen Comment: No. of containers..01 ThinPrep Vial Result Comment: The HPV DNA reflex criteria were not met with this specimen result therefore, no HPV testing was performed. Performed at: [address] [id number] Technical Report Writer: Kimberlee Wallace MD, Phone: [phone] Performed By: #### L 7400.0353 #### [facility] [address] [place], [address] PAPSMR Comment Normal . [facility] Comment on above: Order Comment: Speci men Comment: [id number] Specimen Comment: No. of containers..01 ThinPrep Vial Result Comment: The Pap smear is a screening test designed to aid in the detection of premalignant and malignant conditions of the uterine cervix. It is not a diagnostic procedure and should not be used as the sole means of detecting cervical cancer. Both false-positive and false-negative reports do occur. Performed By: #### L 7400.0353 #### [facility] [address] [place], [place], [address] PERFORM Comment Normal . [facility] Comment on above: Order Comment: Speci men Comment: [id number] Specimen Comment: No. of containers..01 ThinPrep Vial Result Comment: Hous sein Broumand-Abassi, Oracle Reports Developer (ASCP) Performed By: #### L 7400.0353 #### [facility] [address] [place], [address] MR/BMS.BPon 12-22-2024 MR/BMS.BP [facility] [address], [address] [place] [address] OFFICE VISIT Date of Service: 12/22/24 MR#: [id number] Acct: [id number] Name: ROSY RAWLS Rep #: [id number] : 1995 Provider: Dr. Hugo Liz se, DO Age/Sex: 29/F Location: [facility].BP Status: Signed Intake Vital Signs 12/14/24 13:37 [...] 12/22/24 @ 08:[address] Hugo Davey, ) JAILYN (generalized anxiety disorder) History of lumbar [...] physical activity do you participate in: none july/synagogue: None seatbelt use: always do you feel safe at home: Yes additional social history: Single HPI History of Present Illness History provided by: patient HPI: Rosy Rawls is a 29 year old female who presents today for follow up evaluation. Reports that "every day is sucking." Feels like she is waking up hours earlier with significant anxiety. Feels like she is anxious about having pain. Describes having the maximum anger response" to any type of stressor. Feels like her memory has been very poor. Has cancelled all her counseling appointments and Shaman appointments as she felt that it was worsening things and was leading her to feel distressed for hours afterwards. Will be able to have extra time for her oral exam at the end of the month. Describes brain fog as "being so bad." Has had some strong self harm urges and has self harmed in the form of hitting. Sleep has been "the only reprieve she has had" in recent past. Feels like she is [...] easy bleeding (more content not included)... 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 She went off of this due to migraines and other health issues" and has had relief not being on the estrogen. Has not been sexually active in 2 years. Hx childhood trauma. She is interested in POP as a form of contraception as well as to regulate her menses. She is currently on her menses; started yesterday. This is her "heavy" day. Last PAP: due History of abnormal [...] Reports anxiety, de (more content not included)... [facility] 36on 12-09-2024 36 I called [employer] ( ), GammaCore is not a covered benefit. [facility] notified, they said it may be covered under her medical benefits. They suggest we call pt's medical insurance to see if it can be processed through medical benefits. [employer] will not be able to send pt the GammaCore device. Insurance will need to tell us where she can get it. [facility] 36 I called [facility], they said they tried to PA the GammaCore device but insurance said only the prescriber can initiate the auth. # [facility] 36on 12-08-2024 36 Name of caller: Narinder Contact phone number: [phone] Relationship to Patient: Pharmacy Provider: Reyes Bowling Practice: Neurology Chief Complaint/Reason for Call: Narinder called back to check on prior authorization for Gammacore. Please advise. Best time of day caller can be reached: Any Patient advised that office/PCP has 24-48 business hours to return their call: N/A [facility] MR/BMS.BPon 12-05-2024 MR/BMS.BP [facility] [address], [address] [place] [address] OFFICE VISIT Date of Service: 12/05/24 MR#: [id number] Acct: [id number] Name: ROSY RAWLS Rep #: [id number] : 1995 Provider: Dr. Hugo Liz se, DO Age/Sex: 29/F Location: [facility] [place].BP Status: Signed Intake Vital Signs 11/03/24 09:40 [...] mg PO 12/05/24 12/05/24 History hr,extended release PFSH Medical History (Updated 10/30/24 @ 00:00 by [...] evaluation. Patient reports that she has been "up and down." Largely depends on how she is feeling [...] school at this point. 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 Denies SI/HI or AVH. [...] to taper t (more content not included)... [facility] 36on 12-01-2024 36 Name of caller: Narinder Contact phone number: [phone] Relationship to Patient: Pharmacy Provider: Reyes Bowling Practice: Neurology Chief Complaint/Reason for Call: Pharmacy called to request a prior authorization for Gammacore. Please submit PA as requested. Best time of day caller can be reached: Any Patient advised that office/PCP has 24-48 business hours to return their call: Yes [facility] 36on 11-29-2024 36 Called and relayed message [facility] 36 ----- Message from Josh Mccann MD sent at 11/22/2024 8:18 AM EDT ----- Please inform the patient of the results of the cervical x-ray unremarkable cervical spine study with no significant abnormalities ----- Message ----- From: Interface, Radiology Results In Sent: 11/22/2024 12:04 AM EDT To: Josh Mccann MD [facility] [id number] 11-28-2024 [id number] Requested Prescriptions Signed Prescriptions Disp Refills Lasmiditan [...] chew, or split. Authorizing Provider: JAYE BOWLING [place] pharmacy report ([facility] [place]) reviewed and found to be consistent with prescriptions. Patient has been adherent to prescribed therapy. Prescription for Reyvow sent to [facility] for PA. Please fax paperwork for gammaCore as requested. Normal [facility] Office Visiton 11-17-2024 Follow-up visit [id number] Rosy Rawls 1995 F Date Provider Department Center 11/17/2024 [id number] MCCANN [facility] PN None Family History Problem Relation Age of Onset Cancer Father Diabetes Maternal Grandfather Alzheimer's disease Maternal Grandfather Depression Maternal Grandmother Diabetes Maternal Grandmother Alcohol abuse Mother Depression Mother Migraines Mother Arthritis Father's Sister Cancer Father's Sister Family Status - Relation Status Age at Father Alive Maternal Grandfather Maternal Grandmother Alive Mother Alive Father's Sister Alive Father's Sister Alive Level of Service:37643 [place] OFFICE/OUTPATIENT NEW MODERATE MDM 45 MINUTES Reason for Visit and Comments: Back Pain [12] Neck Pain [426853] Foot Pain [240167] New Patient [542] Pain [136] - Pt suffers from migraines daily Normal [facility] Progress Noteon 11-17-2024 Progress Note [facility] PAIN MANAGEMENT - [place] [address] [facility] [address] Dept: [phone] Dept Chief Complaint Patient presents with Back [...] Weight: 238 lb (108 kg) Height: 5' 9" (1.753 m) GENERAL: On examining the patient, [...] was offered the opportunity to have a open developer operator in the examining room. . Thank you, [...] AVS and instructed to contact myself via [employer] or call the office anytime with any [...] current facility-administere d medications for this visit. [facility] [id number] 11-14-2024 [id number] I spoke with patient, informed her the forms were completed and sent to her [employer]. [facility] [id number] Paperwork completed to be sent as requested. [facility] [id number] 11-11-2024 [id number] Forms printed and placed in provider in-basket. Pt asking if these can be done by 11/14/2024. [facility] 3611-11-2024 36 Form printed and placed in provider in-basket. Closing this message as a duplicate to her [employer] message. [facility] 36on 11-10-2024 36 Name of caller: Rosy Contact phone number: [phone] Relationship to Patient: patient Provider: Christopher Bowling Practice: Neurology Chief Complaint/Reason for Call: Rosy called advising she will be sending via [employer] message forms for provider to fill out and send back to her on [employer] for her college. 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 Please call patient back when this has been completed and advise. Best time of day caller can be reached: any Patient advised that office/PCP has 24-48 business hours to return their call: Yes Normal [facility] MR/BMS.BPon 11-03-2024 MR/BMS.BP [facility], [address] [place] [address] OFFICE VISIT Date of Service: 11/03/24 MR#: [id number] Acct: [id number] Name: ROSY RAWLS Rep #: [id number] : 1995 Provider: Dr. Hugo Liz se, DO Age/Sex: 29/F Location: [facility].BP Status: Signed Intake Vital Signs 10/12/24 13:00 [...] (From Bactrim) Allergy (Verified 10/22/24 17:45) Hives [facility] Medical History (Updated 10/30/24 @ 00:00 by [...] (skin-picking) dis (more content not included)... Normal [facility] Office Visiton 11-03-2024 Follow-up visit [id number] Rosy Rawls 1995 F Date Provider Department Center 11/03/2024 [id number] J[place]E [facility] None No family history on file Level of Service:07249 [place] OFFICE/OUTPATIENT ESTABLISHED LOW [facility] 20 MIN Reason for Visit and Comments: Follow-up [484963] - 2 month follow up for chronic migraine Normal [facility] Progress Noteon 11-03-2024 Progress Note [facility] NEUROLOGY OUTPATIENT CLINIC Primary Care Physician: Anirudh [...] is seen in the NEUROLOGY CLINIC of [facility] for complaint of headaches. Patient states that [...] effects Previous medication trials: Topiramate Propranolol Tg Qulipta Nurtec Past Medical History: Diagnosis Date [...] ear pain, f (more content not included)... [facility] Progress Note Patient was able to ambulate safely to the examination room. Provider was not notified of possible fall risk Pt also reports that she was prescribed a small dose of Prozac. Has not yet started taking. Did not know the dosage. [facility] [id number] 10-31-2024 [id number] Requested Prescriptions Signed Prescriptions Disp Refills propranolol LA (Inderal LA) 80 MG 24 hr capsule 30 capsule 2 Sig: Take 1 capsule (80 mg) by mouth daily. Do not crush, chew, or split. Authorizing Provider: JAYE BOWLING [facility] 29on 10-24-2024 29 Addended by: JAYE BOWLING on: 10/24/2024 03:25 PM Modules accepted: Orders [facility] Emergency Department Summary on 10-22-2024 Emergency Department Summary [facility] Medical Records Department [address] [place] [address] Emergency Department Summary 10/22/24 MR#: [id number] Acct: [id number] Name: ROSY RAWLS Rep #: [id number] : 1995 29 From: Anabella LEVI PCP: Dr. Anirudh Jerez MD Status:DEP ER Location: ED HPI History of Present Illness Chief Complaint: Headache Narrative Narrative: Patient presents today with a migraine she has had over the last several days. She reports a significant history of migraines, she has tried multiple different migraine medications in the past and follows with [facility]. She had a DHE infusion earlier [...] this year. LMP was 3 weeks ago. [facility] Medical History (Updated 10/22/24 @ 19:34 [...] mg PO QHS 30 days #30 tabs 08/23 Unknown Rx atogepant 60 mg tablet (Qulipta) [...] due to (more content not included)... Normal [facility] [id number] 10-21-2024 [id number] Requested Prescriptions Signed Prescriptions Disp Refills atogepant (Qulipta) 60 MG tablet 30 tablet 5 Sig: Take 1 tablet (60 mg) by mouth daily. Authorizing Provider: JAYE BOWLING Prescription sent to [facility] for PA. [facility] 36on 10-20-2024 36 Spoke with Reyes Bowling WOODWORKING BELT SANDER and Dr Smith. DHE can cause cystitis-so [...] Care Center and Clinic MR/BMS.BPon 10-12-2024 MR/BMS.BP [facility] [address] [place] [address], [address] [place] [address] OFFICE VISIT Date of Service: 10/12/24 MR#: [id number] Acct: [id number] Name: ROSY RAWLS Rep #: [id number] : 1995 Provider: Dr. Hugo Liz se, DO Age/Sex: 29/F Location: [facility].BP Status: Signed Intake Vital Signs 09/14/24 09:19 [...] sense of impending doom. Sleep has been "ok." Had some passive thoughts of self harm, [...] delirium. Patien (more content not included)... Normal [facility] Ferritinon 09-22-2024 Ferritin [Mass/Vol] 167 ng/mL Normal 22-378 [facility] Comment on above: Performed By: #### L 503.6550, L503.6150 ####[facility] [address] [place], [address] Ironon 09-22-2024 Iron [Mass/Vol] 151 ug/dL Normal 50-170 [facility] Comment on above: Performed By: #### L 503.6550, L503.6150 ####[facility] [address] [place], [place], [address] MR/BMS.BPon 09-14-2024 MR/BMS.BP [address], [address] [place] [address] OFFICE VISIT Date of Service: 09/14/24 MR#: [id number] Acct: [id number] Name: ROSY RAWLS Rep #: [id number] : 1995 Provider: Dr. Hugo Liz se, DO Age/Sex: 29/F Location: [facility].BP Status: Signed Intake Vital Signs 08/18/24 15:03 [...] (From Bactrim) Allergy (Verified 08/18/24 15:06) Hives [facility] Medical History (Updated 07/20/24 @ 14:02 by [...] stopped all her migraine medications.Sleep has been "alright." Sleep does remain somewhat shifted, getting to [...] with patie (more content not included)... Normal [facility] 36on 09-13-2024 36 Pt scheduled for 10/18/2024 Normal [facility] Office Visiton 09-08-2024 Follow-up visit [id number] Rosy Rawls 1995 F Date Provider Department Center 09/08/2024 [id number] BOWLING [facility] P None No family history on file Level of Service:49916 [place] OFFICE/OUTPATIENT ESTABLISHED LOW MDM 20 MIN Reason for Visit and Comments: Migraine [782317] - Same DHE is going at the end of September Going stop taking Qulipta is it not helping Stopped taking propranolol In a lot of pain today She said she noticed when her sugar drops her migraine is worse Normal [facility] Progress Noteon 09-08-2024 Progress Note [facility] NEUROLOGY OUTPATIENT CLINIC Primary Care Physician: Anirudh [...] is seen in the NEUROLOGY CLINIC of [facility] for complaint of headaches. Patient states that [...] DAY AT BEDTI (more content not included)... [place] 5808109-07-2024 36 Patient prefers to wait for 3 day infusion at end of September. Scheduled for 10-18,, [place] [address] Name of Caller: Rosy Contact Reason for Appointment: Rosy returned call to Mar to schedule her infusion. Please reach out to Rosy when available. Office Name: [facility] [address] 09-06-2024 36 09-06 11:59 LMOVM auth for KLEIN infusion obtained-calling to schedule appt-will attempt to call patient back Normal [facility] 36 No prior authorization needed. Infusion verification form scanned into media. Normal [facility] 36 Can you please assist with prior authorization? Normal [facility] Calcaneus min 2 Viewson 08-21 Calcaneus min 2 Views [facility] Imaging Services [address] [place] [address] Calcaneus min 2 Views MR#: [id number] Acct: [id number] Name: ROSY RAWLS Rep #: [id number] : 1995 From: Eduard Garcia PCP: Dr. Anirudh Jerez MD Status: REG CLI Study: Calcaneus min 2 Views Date of Exam: 09/02/24 Exam# [id number] Ordering Dr: Anirudh Jerez MD PROCEDURE: CALCANEUS [...] out a currently occult fracture. Reading Location: [address] CC: Dr. Anirudh Jerez MD Technology Administrator: Signed Normal [facility] [id number] 08-31-2024 [id number] DHE order placed for continued migraine pain. Normal [facility] MR/BMS.BPon 08-18-2024 MR/BMS.BP [address], [address] [place], [place] [id number] OFFICE VISIT Date of Service: 08/18/24 MR#: [id number] Acct: [id number] Name: ROSY RAWLS Rep #: [id number] : 1995 Provider: Dr. Hugo Liz se, DO Age/Sex: 29/F Location: [facility].BP Status: Signed Intake Vital Signs 07/20/24 13:51 [...] No Neck size large ? (Measured around [employer]) Is your shirt collar 16 inches / [...] (Standoffish) Activity/Motor Behav (more content not included)... [facility] [id number] 08-03-2024 [id number] Requested Prescriptions Signed Prescriptions Disp Refills Atogepant (Qulipta) 60 MG tablet 30 tablet 5 Sig: Take 60 mg by mouth daily. Authorizing Provider: JAYE BOWLING Please provide PA for medication. [facility] MR/BMS.BPon 07-20-2024 MR/BMS.BP [facility] [address] [facility], [address] [place] [address] OFFICE VISIT Date of Service: 07/20/24 MR#: [id number] Acct: [id number] Name: ROSY RAWLS Rep #: [id number] : 1995 Provider: Dr. Hugo Liz se, DO Age/Sex: 29/F Location: [facility].BP Status: Signed Intake Vital Signs 05/17/24 11:32 [...] that her father was in the hospital "dying of heart failure." This was nearly the same time of [...] Significantly worse (more content not included)... Normal [facility] Office Visiton 07-05-2024 Follow-up visit [id number] Rosy Rawls 1995 F Date Provider Department Center 07/05/2024 [id number] BOWLING NEURO P None No family history on file Level of Service:39707 [place] OFFICE/OUTPATIENT ESTABLISHED LOW MDM 20 MIN Reason for Visit and Comments: Follow-up [522630] Migraine [772731] Normal [facility] Progress Noteon 07-05-2024 Progress Note [facility] NEUROLOGY OUTPATIENT CLINIC Primary Care Physician: Anirudh [...] is seen in the NEUROLOGY CLINIC of [facility] for complaint of headaches. Patient states that [...] pamoate (V (more content not included)... Normal [facility] AFB CULTUREon 06-22-2024 AFB CULTURE AFB CULTURE Reference No growth at 6 weeks AFB STAIN Reference No acid fast bacilli seen by fluorescent microscopy ORDER COMMENTS: Stain Reference Range: No acid fast bacilli seen by fluorescent microscopy. [ S = SUSCEPTIBLE R = RESISTANT I = INTERMEDIATE S-DD = Susceptible-dose dependent NS = Non-susceptible NO = No Interpretation ] Normal [facility] Comment on above: Performed By: #### L AB877 ####Vp Security: CORRIE CARBALLO ([phone])[facility] ([facility])[address] [place] [address] GLUCOSE, CSFon 06-22-2024 Appearance (U) Clear and Colorless Normal [facility] Comment on above: Performed By: #### L AB195, [id number] ####Vp Security: BEBE WINC[place] ([phone])[facility] ([facility])[address] [place] [address] Order Comment: Lumba r Puncture GLUCOSE, CSF 79 mg/dL High 40-70 [facility] Comment on above: Performed By: #### L AB195, PNP369 ####Vp Security: BEBE [place] ([phone])[facility] ([facility])[address] SUPERNATANT Clear and Colorless Normal [facility] Comment on above: Performed By: #### L AB195, ARI303 ####Vp Security: BEBE [place] ([phone])[facility] ([facility])[address] [place] [address] Order Comment: Lumba r Puncture Laboratory - Chemistry and C hemistry - challengeon 06-22-2024 Glucose (CSF) [Mass/Vol] 79 mg/dL High 40 - 70 mg/dL [facility] Protein (CSF) [Mass/Vol] 27 mg/dL 15 - 40 mg/dL [facility] Laboratory - Hematology and Cell countsOrdered By: Estella Paige on 06-22-2024 RBC Manual cnt (CSF) [#/Vol] 11 /mm3 [facility] WBC Manual cnt (CSF) [#/Vol] 4 /mm3 NINF - 5 /mm3 [facility] Laboratory - Hematology and Cell countsOrdered By: Hanh Brooke on 06-22-2024 RBC Manual cnt (CSF) [#/Vol] 3 /mm3 [facility] WBC Manual cnt (CSF) [#/Vol] 1 /mm3 NINF - 5 /mm3 [facility] [employer] Laboratory - Specimen inform ationOrdered By: Estella Paige on 06-22-2024 Appearance (CSF) Clear and Colorless [facility] [employer] Appearance (Spun CSF) Clear and Colorless [facility] [employer] Tube number Nom (CSF) [ID] Tube 4 [facility] Laboratory - Specimen inform ationon 06-22-2024 Appearance (CSF) Clear and Colorless [facility] Laboratory - Specimen inform ationOrdered By: Hanh Brooke on 06-22-2024 Appearance (CSF) Clear and Colorless [facility] [employer] Appearance (Spun CSF) Clear and Colorless [facility] [employer] Tube number Nom (CSF) [ID] Tube 1 [facility] [employer] No Panel InformationOrdered By: Estella Paige on 06-22-2024 [facility] [employer] No Panel Informationon 06-22 Interpretation and review of laboratory results Abnormal [facility] SUPERNATANT Clear and Colorless [facility] [employer] Successful uncomplicated fluoroscopic-guided lumbar puncture. Report Dictated on Electronically Signed By: Alvino Spangler MD Electronically Signed Date/Time: 06/22/2024 1:51 PM [facility] Patient Name: ROSY RAWLS : [...] Needle tip at the level of L4 [facility] Alvino Spangler MD - 06/22/2024 Patient Name: [facility] RAWLS : 1995 [id number] Exam Date/Time: 06/22/2024 13:10 Procedure: IR LUMBAR [...] Electronically Signed Date/Time: 06/22/2024 1:51 PM EDT [facility] Radiology Study observation (narrative) [facility] No Panel InformationOrdered By: Hanh Brooke on 06-22-2024 [facility] No Panel InformationOrdered By: Alvino Spangler on 06-22-2024 [facility] Work Phone: Nursing Noteon 06-22-2024 Nursing Note Patient verbalized readiness to leave. Patient left with all medications, discharge paperwork, and verbalized all belongings present. Patient and family verbalized understanding of patient education. Patient left in wheelchair with family to drive. All questions answered. Normal [facility] OLIGOCLONAL BANDINGon 2024 OLIGOCLONAL BANDS INTERP See Note Normal [facility] Comment on above: Result Comment: Isoe [...] caution when interpreting the results. Performed By: [facility] [address] [place] [address] Property Field Adjuster: Olegario Ospina MD, PhD CLIA Number: [id number] Performed By: #### L AB740 ####[facility] ([facility])[address] [place] [address] [facility] OLIGOCLONAL BANDS NUMBER, CSF 0 Bands Normal 0-1 [facility] Comment on above: Performed By: #### L AB740 ####[facility] ([facility])[address] [place] [address] [place] OLIGOCLONAL BANDS, CSF Negative Normal Negative [facility] Comment on above: Performed By: #### L AB740 ####[facility] ([facility])[address] [place] [address] [place] PROTEIN, CSFon 06-22-2024 PROTEIN, CSF 27 mg/dL Normal 15-40 [facility] Comment on above: Order Comment: Lumba r Puncture Performed By: #### L AB195, SQL307 ####Vp Security: BEBE W[place] ([phone])[facility] ([facility])[address] SPINAL FLUID CELL COUNTon APPEARANCE CEREBRAL SPINAL FLUID Clear and Colorless Normal [facility] Comment on above: Order Comment: Tube 1 Performed By: #### L AB142 ####Vp Security: BEBE [place] ([phone])[facility] ([facility])[address] APPEARANCE OF SUPERNATANT CEREBRAL SPINAL FLUID Clear and Colorless Normal [facility] Comment on above: Order Comment: Tube 1 Performed By: #### L AB142 ####Vp Security: BEBE W[place] ([phone])[facility] ([facility])[address] RBC, CSF (MANUAL) 3 /mm3 Normal [facility] Comment on above: Order Comment: Tube 1 Performed By: #### L AB142 ####Vp Security: BEBE WINC[place] ([phone])[facility] ([facility])[address] [place] [address] TUBE NUMBER OF CEREBRAL SPINAL FLUID Tube 1 Normal [facility] Comment on above: Order Comment: Tube 1 Performed By: #### L AB142 ####Vp Security: BEBE W[place] ([phone])[facility] [place] ([facility])[address] WBC, CSF (MANUAL) 1 /mm3 Normal <5 [facility] Comment on above: Order Comment: Tube 1 Performed By: #### L AB142 ####Vp Security: BEBE WINC[place] ([phone])[facility] ([facility])[address] APPEARANCE CEREBRAL SPINAL FLUID Clear and Colorless Normal [facility] Comment on above: Performed By: #### L AB142 ####Vp Security: BEBE W[place] ([phone])[facility] [place] ([facility])[address] APPEARANCE OF SUPERNATANT CEREBRAL SPINAL FLUID Clear and Colorless Normal [facility] Comment on above: Performed By: #### L AB142 ####Vp Security: BEBE RANULFO ([phone])[facility] [place] ([facility])[address] RBC, CSF (MANUAL) 11 /mm3 Normal [facility] Comment on above: Performed By: #### L AB142 ####Vp Security: BEBE WINC[place] ([phone])[facility] [place] ([facility])[address] TUBE NUMBER OF CEREBRAL SPINAL FLUID Tube 4 Normal [facility] Comment on above: Performed By: #### L AB142 ####Vp Security: BEBE WINCHE[place] ([phone])[facility] [place] ([facility])[address] WBC, CSF (MANUAL) 4 /mm3 Normal <5 [facility] Comment on above: Performed By: #### L AB142 ####Vp Security: BEBE WINC[place] ([phone])[facility] [place] ([facility])[address] [place] [address] Testosterone, Total / Freeon 06-22-2024 TESTOSTER,FREE 1.41 ng/dL Abnormal 0.10-0.85 [facility] Comment on above: Order Comment: Order Date: 06/09/24Order Info: 0024-1 - TESTFN Performed By: #### L 500.4050, L501.9520, L500.4100, L3100.5310, L501.9985, L506.0400 ####[facility] [address] [place], [address] TESTOSTER,TOTAL 52 ng/dL Normal 13-71 [facility] Comment on above: Order Comment: Order Date: 06/09/24Order Info: 0024-1 - TESTFN Performed By: #### L 500.4050, L501.9520, L500.4100, L3100.5310, L501.9985, L506.0400 ####[facility] [address] [place], [place], [address] TESTOSTERONE,%F 2.72 Normal 0.50-2.80 [facility] Comment on above: Order Comment: Order Date: 06/09/24Order Info: 0024-1 - TESTFN Result Comment: Perf ormed at: [facility] Lab[address] [id number] Technical Report Writer: Surinder Gibson PhD, Phone: [phone] Performed at: [facility] [id number] Technical Report Writer: Zac Sutton MD, Phone: [phone] Performed By: #### L 500.4050, L501.9520, L500.4100, L3100.5310, L501.9985, L506.0400 ####[facility] [address] [place], [place], [address] [id number] 06-17-2024 [id number] Left message for patient regarding their lumbar [...] The patient agreed and verbalized understanding. Normal [facility] 36 Please advise the patient the results of the MRI were received. Additional testing was ordered to further evaluate. An order for a lumbar puncture was placed. Normal [employer] [facility] 36 Noted Normal [facility] [employer] [facility] 36 Lmovm. Please release message to patient as written. If patient had more recent MRI please ask where it was done so that we can request records. Normal [facility] [employer] [facility] 36 Name of caller: Chasidy Contact phone number: [phone] Relationship to Patient: PCP office Provider: [facility]: [facility] Chief Complaint/Reason for Call: Chasidy called [...] hours to return their call: N/A Normal [facility] [employer] [facility] 36 Please advise the patient the last MRI brain was 2021 that I can see and it is not concerning for MS. Most recent labs were also normal. It is advised that the patient follow up with psychiatry for depression symptoms. Normal [facility] 36 S: Patient's friend Rianna called [...] Reason for Disposition Mild depression Protocols used: [id number] Normal [facility] Brain W/WO Contraston 2024 Brain W/WO Contrast [facility] [address] [place] [address] Brain W/WO Contrast MR#: [id number] Acct: [id number] Name: ROSY RAWLS Rep #: [id number] : 1995 From: Andre Garcia PCP: Dr. Anirudh Jerez MD Status: REG CLI Study: Brain W/WO Contrast Date of Exam: 06/14/24 Exam# [id number] Ordering Dr: Cecilio Dove MD EXAM: MRI [...] Clinical and laboratory correlation suggested. Reading Location: [place] [address] CC: Dr. Anirudh Jerez MD; Dr. Cecilio Dove MD Technology Administrator: Signed Normal [facility] Comprehensive Metabolic Prof ilon 06-10-2024 Albumin [Mass/Vol] 4.0 g/dL Normal 3.5-5.0 [facility] Comment on above: Order Comment: Order Date: 06/09/24Order Info: 86-1 - CMPOrder Info: [id number] - LIPIDOrder Info: 3 - TSHOrder Info: 3024-7 - T4F Performed By: #### L 500.4050, L501.9520, L500.4100, L3100.5310, L501.9985, L506.0400 ####[facility] [address] [place], [address] Albumin/Globulin [Mass ratio] 1.4 {ratio} Normal 0.9-2.4 [facility] Comment on above: Order Comment: Order Date: 06/09/24Order Info: 785-03 - CMPOrder Info: [id number] - LIPIDOrder Info: 3 - TSHOrder Info: 3024-7 - T4F Performed By: #### L 500.4050, L501.9520, L500.4100, L3100.5310, L501.9985, L506.0400 ####[facility] [address] [place], [address] ALK PHOS 74 U/L Normal 35-104 [facility] Comment on above: Order Comment: Order Date: 06/09/24Order Info: 785-1 - CMPOrder Info: [id number] - LIPIDOrder Info: [id number] - TSHOrder Info: 3024-7 - T4F Performed By: #### L 500.4050, L501.9520, L500.4100, L3100.5310, L501.9985, L506.0400 ####[facility] [address] [place], [address] ALT [Catalytic activity/Vol] 64 U/L High <=34 [facility] Comment on above: Order Comment: Order Date: 06/09/24Order Info: 0786-1 - CMPOrder Info: [id number] - LIPIDOrder Info: [id number] - TSHOrder Info: 3024-7 - T4F Performed By: #### L 500.4050, L501.9520, L500.4100, L3100.5310, L501.9985, L506.0400 ####[facility] [address] [place], [address] AST [Catalytic activity/Vol] 35 U/L High <=31 [facility] Comment on above: Order Comment: Order Date: 06/09/24Order Info: 86-1 - CMPOrder Info: [id number] - LIPIDOrder Info: [id number] - TSHOrder Info: 3024-7 - T4F Performed By: #### L 500.4050, L501.9520, L500.4100, L3100.5310, L501.9985, L506.0400 ####[facility] [address] [place], [address] Bilirubin [Mass/Vol] 0.25 mg/dL Normal 0.00-1.30 [facility] Comment on above: Order Comment: Order Date: 06/09/24Order Info: 86-1 - CMPOrder Info: [id number] - LIPIDOrder Info: [id number] - TSHOrder Info: 3024-7 - T4F Performed By: #### L 500.4050, L501.9520, L500.4100, L3100.5310, L501.9985, L506.0400 ####[facility] [address] [place], [address] BUN/CRE 16.2 RATIO Normal 10-20 [facility] Comment on above: Order Comment: Order Date: 06/09/24Order Info: 86-1 - CMPOrder Info: [id number] - LIPIDOrder Info: 3 - TSHOrder Info: 3024-7 - T4F Performed By: #### L 500.4050, L501.9520, L500.4100, L3100.5310, L501.9985, L506.0400 ####[facility] [address] [place], [address] Calcium [Mass/Vol] 9.4 mg/dL Normal 7.6-11.0 [facility] Comment on above: Order Comment: Order Date: 06/09/24Order Info: 0786-1 - CMPOrder Info: [id number] - LIPIDOrder Info: 6-3 - TSHOrder Info: 3024-7 - T4F Performed By: #### L 500.4050, L501.9520, L500.4100, L3100.5310, L501.9985, L506.0400 ####[facility] [address] [place], [address] Chloride [Moles/Vol] 104 mmol/L Normal 98-108 [facility] Comment on above: Order Comment: Order Date: 06/09/24Order Info: 86-1 - CMPOrder Info: [id number] - LIPIDOrder Info: 3 - TSHOrder Info: 3024-7 - T4F Performed By: #### L 500.4050, L501.9520, L500.4100, L3100.5310, L501.9985, L506.0400 ####[facility] [address] [place], [address] CO2 [Moles/Vol] 22.8 mmol/L Normal 21.0-32.0 [facility] Comment on above: Order Comment: Order Date: 06/09/24Order Info: 0786-1 - CMPOrder Info: [id number] - LIPIDOrder Info: [id number] - TSHOrder Info: 3024-7 - T4F Performed By: #### L 500.4050, L501.9520, L500.4100, L3100.5310, L501.9985, L506.0400 ####[facility] [address] [place], [address] Creatinine [Mass/Vol] 0.84 mg/dL Normal 0.70-1.20 [facility] Comment on above: Order Comment: Order Date: 06/09/24Order Info: 0786-1 - CMPOrder Info: [id number] - LIPIDOrder Info: [id number] - TSHOrder Info: 3024-7 - T4F Performed By: #### L 500.4050, L501.9520, L500.4100, L3100.5310, L501.9985, L506.0400 ####[facility] [address] [place], [address] GAP 13 Normal 5-15 [facility] Comment on above: Order Comment: Order Date: 06/09/24Order Info: 0786-1 - CMPOrder Info: [id number] - LIPIDOrder Info: 6-3 - TSHOrder Info: 3024-7 - T4F Performed By: #### L 500.4050, L501.9520, L500.4100, L3100.5310, L501.9985, L506.0400 ####[facility] [address] [place], [address] GFR/1.73 sq M.predicted among non-blacks MDRD (S/P/Bld) [Vol rate/Area] 96 mL/min/{1.73_m2} Normal >60 [facility] Comment on above: Order Comment: Order Date: 06/09/24Order Info: 0786-1 - CMPOrder Info: [id number] - LIPIDOrder Info: [id number] - TSHOrder Info: 3024-7 - T4F Result Comment: mL/m in/1.73m2 CKD-EPI Creatinine Equation (2020) Performed By: #### L 500.4050, L501.9520, L500.4100, L3100.5310, L501.9985, L506.0400 ####[facility] [address] [place], [address] Globulin (S) [Mass/Vol] 2.8 g/dL Normal 2.2-4.2 [facility] Comment on above: Order Comment: Order Date: 06/09/24Order Info: 0786-1 - CMPOrder Info: [id number] - LIPIDOrder Info: [id number] - TSHOrder Info: 3024-7 - T4F Performed By: #### L 500.4050, L501.9520, L500.4100, L3100.5310, L501.9985, L506.0400 ####[facility] [address] [place], [address] Glucose [Mass/Vol] 116 mg/dL High 70-99 [facility] Comment on above: Order Comment: Order Date: 06/09/24Order Info: 785- - CMPOrder Info: [id number] - LIPIDOrder Info: 3 - TSHOrder Info: 3024-7 - T4F Performed By: #### L 500.4050, L501.9520, L500.4100, L3100.5310, L501.9985, L506.0400 ####[facility] [address] [place], [address] Potassium [Moles/Vol] 4.2 mmol/L Normal 3.3-5.1 [facility] Comment on above: Order Comment: Order Date: 06/09/24Order Info: 07- - CMPOrder Info: [id number] - LIPIDOrder Info: 3 - TSHOrder Info: 3024-7 - T4F Performed By: #### L 500.4050, L501.9520, L500.4100, L3100.5310, L501.9985, L506.0400 ####[facility] [address] [place], [address] Sodium [Moles/Vol] 139 mmol/L Normal 133-145 [facility] Comment on above: Order Comment: Order Date: 06/09/24Order Info: 785- - CMPOrder Info: [id number] - LIPIDOrder Info: [id number] - TSHOrder Info: 4-7 - T4F Performed By: #### L 500.4050, L501.9520, L500.4100, L3100.5310, L501.9985, L506.0400 ####[facility] [address] [place], [address] T PROT 6.8 g/dL Normal 5.9-8.4 [facility] Comment on above: Order Comment: Order Date: 06/09/24Order Info: 0786-1 - CMPOrder Info: [id number] - LIPIDOrder Info: [id number] - TSHOrder Info: 7 - T4F Performed By: #### L 500.4050, L501.9520, L500.4100, L3100.5310, L501.9985, L506.0400 ####[facility] [address] [place], [address] Urea nitrogen [Mass/Vol] 14 mg/dL Normal 4-19 [facility] Comment on above: Order Comment: Order Date: 06/09/24Order Info: 0786-1 - CMPOrder Info: [id number] - LIPIDOrder Info: [id number] - TSHOrder Info: 7 - T4F Performed By: #### L 500.4050, L501.9520, L500.4100, L3100.5310, L501.9985, L506.0400 ####[facility] [address] [place], [address] Hemoglobin A1con 06-10-2024 HbA1c (Bld) [Mass fraction] 6.1 % Normal <=5.6 [facility] Comment on above: Order Comment: Order Date: 06/09/24Order Info: 4548-4 - A1C Performed By: #### L 500.4050, L501.9520, L500.4100, L3100.5310, L501.9985, L506.0400 ####[facility] [address] [place], [address] L509.6001on 06-10-2024 CORTISOL 12.80 ug/dL Normal 6.02-18.40 [facility] Comment on above: Order Comment: Order Date: 06/09/24 Order Info: 0786-1 - CMP Order Info: [id number] - LIPID Order Info: 3 - TSH Order Info: 7 - T4F Performed By: #### L 509.6001 #### [facility] [address] [place], [address] Lipid Profileon 06-10-2024 CHOL:HDL 3.94 Normal [facility] Comment on above: Order Comment: Order Date: 06/09/24Order Info: 0786-1 - CMPOrder Info: [id number] - LIPIDOrder Info: 3 - TSHOrder Info: 3023-09 - T4F Performed By: #### L 500.4050, L501.9520, L500.4100, L3100.5310, L501.9985, L506.0400 ####[facility] [address] [place], [address] Cholesterol [Mass/Vol] 244 mg/dL High <=200 [facility] Comment on above: Order Comment: Order Date: 06/09/24Order Info: 0786-1 - CMPOrder Info: [id number] - LIPIDOrder Info: 3 - TSHOrder Info: 7 - T4F Result Comment: Chol esterol level, Desirable <200 mg/dL Borderline high cholesterol 200-239 mg/dL High cholesterol >=240 mg/dL Recommendations of the NCEP Adult Treatment Panel for the following risk-cutoff thresholds for the [place] population. Performed By: #### L 500.4050, L501.9520, L500.4100, L3100.5310, L501.9985, L506.0400 ####[facility] [address] [place], [address] Cholesterol in HDL [Mass/Vol] 62 mg/dL Normal [facility] Comment on above: Order Comment: Order Date: 06/09/24Order Info: 0786-1 - CMPOrder Info: [id number] - LIPIDOrder Info: [id number] - TSHOrder Info: 3023-09 - T4F Result Comment: Aida onal Cholesterol Education Program (NCEP) guidelines: <40 mg/dL: Low HDL-cholesterol (major risk factor for CHD) >= 60 mg/dL: High HDL-cholesterol (negative risk factor for CHD) HDL-cholesterol is affected by a number of factors, e.g. smoking, exercise, hormones, sex and age. Performed By: #### L 500.4050, L501.9520, L500.4100, L3100.5310, L501.9985, L506.0400 ####[facility] [address] [place], [address] Cholesterol in LDL [Mass/Vol] 140 mg/dL Normal [facility] Comment on above: Order Comment: Order Date: 06/09/24Order Info: 0786- - CMPOrder Info: [id number] - LIPIDOrder Info: [id number] - TSHOrder Info: 3023-09 - T4F Result Comment: Bord qmvjuz=152-851 mg/dL Higher Tyyk=827 mg/dL or greater Performed By: #### L 500.4050, L501.9520, L500.4100, L3100.5310, L501.9985, L506.0400 ####[facility] [address] [place], [address] Cholesterol in VLDL [Mass/Vol] 43 mg/dL High 5-40 [facility] Comment on above: Order Comment: Order Date: 06/09/24Order Info: 0786-1 - CMPOrder Info: [id number] - LIPIDOrder Info: 3 - TSHOrder Info: 7 - T4F Performed By: #### L 500.4050, L501.9520, L500.4100, L3100.5310, L501.9985, L506.0400 ####[facility] [address] [place], [address] Triglyceride [Mass/Vol] 213 mg/dL High [facility] Comment on above: Order Comment: Order Date: 06/09/24Order Info: [id number] - CMPOrder Info: [id number] - LIPIDOrder Info: 3 - TSHOrder Info: [id number] - T4F Result Comment: The drugs N-Acetylcysteine and Metamizole may falsely depress this assay. Normal range: <150 mg/dL Borderline High: 150-199 mg/dL High: 200-499 mg/dL Very High: >500 mg/dL Performed By: #### L 500.4050, L501.9520, L500.4100, L3100.5310, L501.9985, L506.0400 ####[facility] [address] [place], [place], [address] T4 Free Directon 06-10-2024 T4 FREE DIRECT 0.90 ng/dL Normal 0.76-1.46 [facility] Comment on above: Order Comment: Order Date: 06/09/24Order Info: [id number] - CMPOrder Info: - LIPIDOrder Info: 3 - TSHOrder Info: 7 - T4FN Performed By: #### L 500.4050, L501.9520, L500.4100, L3100.5310, L501.9985, L506.0400 ####[facility] [address] [place], [place], [address] Thyroid Stim Hormone (TSH)on 06-10-2024 TSH 1.670 uIU/mL Normal 0.300-4.200 [facility] Comment on above: Order Comment: Order Date: 06/09/24Order Info: [id number] - CMPOrder Info: - LIPIDOrder Info: 3 - TSHOrder Info: [id number] - T4F Performed By: #### L 500.4050, L501.9520, L500.4100, L3100.5310, L501.9985, L506.0400 ####[facility] [address] [place], [address] Office Visiton 05-24-2024 Follow-up visit [id number] Rosy Rawls 1995 F Date Provider Department Center 05/24/2024 [id number] BOWLING [facility] P None No family history on file Level of Service:31330 [place] OFFICE/OUTPATIENT ESTABLISHED LOW MDM 20 MIN Reason for Visit and Comments: Follow-up [933528] - Intractable chronic migraine Normal [facility] Progress Noteon 05-24-2024 Progress Note [facility] NEUROLOGY OUTPATIENT CLINIC Primary Care Physician: Anirudh [...] is seen in the NEUROLOGY CLINIC of [facility] for complaint of headaches. Patient states that [...] MG tablet Ta (more content not included)... [facility] MR/BMS.BPon 05-17-2024 MR/BMS.BP [address], [address] [place] [address] OFFICE VISIT Date of Service: 05/17/24 MR#: [id number] Acct: [id number] Name: ROSY RAWLS Rep #: [id number] : 1995 Provider: Dr. Hugo Liz se, DO Age/Sex: 29/F Location: [facility].BP Status: Signed Intake Vital Signs 04/05/24 10:08 [...] (From Bactrim) Allergy (Verified 04/05/24 10:10) Hives [facility] Medical History (Updated 04/05/24 @ 10:06 by [...] F33.2 05/17/24 1244 Date Hugo Davey [facility] Signature: Date (if applicable) CC: [facility] 36on 04-14-2024 36 Requested Prescriptions Signed Prescriptions Disp Refills naratriptan (Amerge) 2.5 MG tablet 9 tablet 3 Sig: Take 1 tablet (2.5 mg) by mouth Once as needed for migraine (may repeat x1). Authorizing Provider: JAYE BOWLING [facility] 36 [employer] released message to patient as written. [facility] 36 Please inquire as to if the patient has tried the Reyvow sample. She can use it today if not. The patient can also use the Ajovy injection today. [facility] 36 Name of caller: Rosy Contact phone number: [phone] Relationship to Patient: patient Provider: SKIP Bowling [...] [Mass/Vol] 4.1 mg/L NINF - 8.0 mg/L [facility] No Panel Informationon 04-12 [facility] Sedimentation rate, automirene villagomez 04-12-2024 ESR (Bld) [Velocity] 2 mm/h < OR = 20 [facility] Office Visiton 04-11-2024 Follow-up visit [id number] Rosy Rawls 1995 F Date Provider Department Center 04/11/2024 [id number]-[id number] BOWLING [facility] None No family history on file Level of Service:18965 [place] OFFICE/OUTPATIENT ESTABLISHED LOW MDM 20 MIN Reason for Visit and Comments: Follow-up [622912] Migraine [198839] - Worsening over last 2 weeks Normal [facility] Progress Noteon 04-11-2024 Progress Note [facility] NEUROLOG[facility] OUTPATIENT CLINIC Primary Care Physician: Anirudh [...] is seen in the NEUROLOGY CLINIC of [facility] for complaint of headaches. Patient states that [...] melatonin 5 (more content not included)... Normal [facility] MR/BMS.BPon 04-05-2024 MR/[place] [address] OFFICE VISIT Date of Service: 04/05/24 MR#: [id number] Acct: [id number] Name: ROSY RAWLS Rep #: [id number] : 1995 Provider: Dr. Hugo Liz se, DO Age/Sex: 29/F Location: [facility].BP Status: Signed Intake Vital Signs 01/14/23 00:17 [...] for new patient evaluation. Patient reports that "2023 was kind of fu up for me." Admits that she was having repressed memories [...] with helium. Patients did take her to [facility] for psychiatric admission which she states [...] talked to parents since October. Went to [facility] and was doing well in IOP. States that she stopped smoking marijuana and was very irritable and was asked to not come back. Logan that her issues were minimized after this point. Admits to having chronic migraines and has had regular headaches since last . Last self harmed about 2 weeks ago. Feels like she does a little bit better than something will happen that will cause worsening symptoms. Describes mood right now as complacent to the shit." Feels like she is wired to be [...] general sense of guilt, describes worthlessness Energy: "not horrible, but not great" Concentration: fair Appetite: normal since quitting smoking weed Psychomotor: mildly agitated Suicide: denies currently, does have self harm urges Memory: "terrible, horrible" describes blacked out periods of her childhood, forgetful Anxiety: admits to some significant anxiety, intermittent panic attacks Obsessions: sometimes intrusive violent thoughts,distressing , skin picking Compulsions: distress related Deshawn: denies symptoms of deshawn in the past PTSD: admits to having significant childhood trauma admits to having "bl (more content not included)... Normal [facility] 36on 02-15-2024 36 Requested Prescriptions Signed Prescriptions Disp Refills fremanezumab (Ajovy) 225 MG/1.5ML auto-injector 4.5 mL 3 Sig: Inject 1 Pen (225 mg) under the skin every 30 (thirty) days. Authorizing Provider: JAYE BOWLING [facility] 36 [facility] has obtained approved for Ajovy and pended Rx. Please route to [facility]. [facility] 36on 02-12-2024 36 I can print off this form. I just want to double check that this isnt something [facility] helps with. Patient is requesting TEVA rom gets filled out to help pay for Ajovy. [facility] 36 Name of caller: Rosy Contact phone number: [phone] Relationship to Patient: patient Provider: SKIP Bowling Practice: [facility] Chief Complaint/Reason for Call: Pt states she received a call from [employer] [facility] who advised that they have not been able to get in contact with anyone at the office. Pt states that an attempt was even made today. Pt states she was advised that the form can be found and downloaded off of their website and faxed back to them for processing. Pt provided website [employer] and fax# [phone]. Pt states she would like to be notified once this has been completed. Pt states she has chronic migraines and really needs for this to be completed as soon as possible. Please review. Best time of day caller can be reached: any Patient advised that office/PCP has 24-48 business hours to return their call: Yes [place] [address]on 02-03-2024 36 Called and left message with [employer]. Will provide information once they call back [facility] 36on 02-01-2024 36 Name of caller: Rosy Contact phone number: [phone] Relationship to Patient: patient Provider: LEXY Bowling Practice: Neuro Chief Complaint/Reason for Call: Rosy said that [employer] [facility] called to see about the forms and to discuss the patient. Non one answered or responded. She would like a call to the [facility] at [phone] so she can be set up. Please advise. Best time of day caller can be reached: any Patient advised that office/PCP has 24-48 business hours to return their call: Yes [place] [address]on 01-11-2024 36 Noted. [facility] 36 FYI: Name of caller: Rosy Contact phone number: [phone] Relationship to Patient: patient Provider: SKIP Bowling Practice: [facility] Chief Complaint/Reason for Call: Patient states that her insurance will no longer cover Ajovy and she is in the middle of the try and fail stage currently trying Emgality, which is not working at all. Patient states that instead of going three months in pain to complete the try and fail medications she would like to sign up with [facility] to get payment assistance for the Ajovy since it worked so well. Patient states that a [facility] representative will be reaching out to the office to request an active prescription. Please advise. Best time of day caller can be reached: Any Patient advised that office/PCP has 24-48 business hours to return their call: No Normal [facility] No Panel InformationOrdered By: Oj Li on 09-16-2023 P [place] 57 degrees Invarium Phone: [place] Interval 147 ms [employer] Work Phone: QRS [place] 60 degrees [employer] Work Phone: QRSD Interval 69 ms [employer] Work Phone: QT Interval 346 ms [employer] Work Phone: QTC Interval 442 ms [employer] Work Phone: T Wave [place] 32 degrees [employer] Work Phone: [employer] Work Phone: No Panel Informationon 09-15 Sinus rhythm Electronically Signed On 09-16-2023 03:09:03 EDT by Oj Li CV Oj Gilmore MD - 09/16/2023 IMPRESSION: Sinus rhythm Electronically Signed On 09-16-2023 03:09:03 EDT by Oj Li [facility] Vital signsOrdered By: Oj Li on 09-16-2023 Heart rate 98 /min bpm Invarium Phone: CBC W Auto Differential pane l (Bld)Ordered By: Janna Nixon on 09-15-2023 Basophils (Bld) [#/Vol] 0.0 10*3/uL 0.0 - 0.2 10*3/uL [facility] Basophils/100 WBC (Bld) 0.3 % 0.0 - 2.0 % [facility] Eosinophils (Bld) [#/Vol] 0.1 10*3/uL 0. 0 - 0.5 10*3/uL [facility] Eosinophils/100 WBC (Bld) 0.8 % 0.0 - 6.0 % [facility] Erythrocyte distribution width (RBC) [Ratio] 12.3 % 11.5 - 15.0 % [facility] Hematocrit (Bld) [Volume fraction] 40.6 % 35.0 - 47.0 % [facility] Hemoglobin (Bld) [Mass/Vol] 14.3 g/dL 11.7 - 16.0 g/dL [facility] Immature granulocytes (Bld) [#/Vol] 0.0 10*3/uL NINF - 0.1 10*3/uL [facility] Immature granulocytes/100 WBC (Bld) 0.2 % 0.0 - 2.0 % [facility] Interpretation and review of laboratory results Normal [facility] th Lymphocytes (Bld) [#/Vol] 3.1 10*3/uL 1. 0 - 4.3 10*3/uL [facility] Lymphocytes/100 WBC (Bld) 31.1 % 15 .0 - 45.0 % [facility] MCH (RBC) [Entitic mass] 30.5 pg 26. 0 - 34.0 pg [facility] MCHC (RBC) [Mass/Vol] 35.2 % 30.5 - 36.0 % [facility] MCV (RBC) [Entitic vol] 86.6 fL 77.0 - 99.0 fL [facility] Monocytes (Bld) [#/Vol] 0.9 10*3/uL 0.0 - 0.9 10*3/uL [facility] Monocytes/100 WBC (Bld) 8.8 % 5.0 - 13.0 % [facility] Neutrophils (Bld) [#/Vol] 5.8 10*3/uL 1. 8 - 7.5 10*3/uL [facility] Neutrophils/100 WBC (Bld) 58.8 % 38 .0 - 82.0 % [facility] Nucleated RBC/100 WBC (Bld) [Ratio] 0.0 % [facility] Platelet mean volume (Bld) [Entitic vol] 9.4 fL 9.0 - 12.7 fL [facility] Platelets (Bld) [#/Vol] 234 10*3/uL 140 - 440 10*3/uL [facility] RBC (Bld) [#/Vol] 4.69 10*6/uL 3.80 - 5.2 0 10*6/uL [facility] WBC (Bld) [#/Vol] 9.8 10*3/uL 3.6 - 10.7 10*3/uL [facility] Comprehensive metabolic 1998 panelon 09-15-2023 Albumin [Mass/Vol] 4.5 g/dL 3.5 - 5.0 g/dL [facility] ALP [Catalytic activity/Vol] 61 U/L 38 - 126 U/L [facility] ALT [Catalytic activity/Vol] 47 U/L High 0 - 34 U/L [facility] Anion gap [Moles/Vol] 11 mmol/L 3 - 13 mmol/L [facility] AST [Catalytic activity/Vol] 43 U/L 15 - 46 U/L [facility] Bilirubin [Mass/Vol] 1.0 mg/dL 0.2 - 1 .3 mg/dL [facility] Calcium [Mass/Vol] 9.7 mg/dL 8.4 - 10. 4 mg/dL [facility] Chloride [Moles/Vol] 107 mmol/L 98 - 10 7 mmol/L [facility] CO2 [Moles/Vol] 17 mmol/L Low 22 - 30 mmol/L [facility] Creatinine [Mass/Vol] 0.80 mg/dL 0.52 - 1.04 mg/dL [facility] GFR/1.73 sq M.predicted MDRD (S/P/Bld) [Vol rate/Area] - PINF [facility] Comment on above: Calculation based on the Chronic Kidney Disease Epidemiology Collaboration (CKD-EPI) equation refit without adjustment for race Glucose [Mass/Vol] 98 mg/dL 70 - 100 mg/dL [facility] Interpretation and review of laboratory results Abnormal [facility] th Potassium [Moles/Vol] 3.9 mmol/L 3.5 - 5.1 mmol/L [facility] Protein [Mass/Vol] 7.7 g/dL 6.3 - 8.2 g/dL [facility] Sodium [Moles/Vol] 136 mmol/L 135 - 145 mmol/L [facility] Urea nitrogen [Mass/Vol] 9 mg/dL 7 - 17 mg/d L [facility] Ethanol (Bld) [Mass/Vol]on 0 09-15-2023 Ethanol [Mass/Vol] g/dL 0.000 - 0.010 g/dL [facility] Interpretation and review of laboratory results Normal [facility] - Chemistry and C hemistry - challengeOrdered By: Georgette Jenkins on 09-15-2023 Beta HCG ( test) Ql Negative Negative [facility] Comment on above: Please note: Very di lute urine specimens, as indicated by a low specific gravity, may not contain practice representative levels of hCG. If is still suspected, a first morning urine specimen should be collected 48 hours later and tested. Beta HCG ( test) Ql (U) is the most common reason for HCG in urine, although choriocarcinoma, hydatidiform mole, and certain nontrophoblastic malignancies also result in detectable urinary HCG levels. Sensitivity = 20mIU/mL. [facility] - Drug toxicology Ordered By: Lisa Srinivasan on 09-15-2023 Amphetamines Screen method >1000 ng/mL Ql (U) Negative [facility] Barbiturates Screen method >200 ng/mL Ql (U) Negative [facility] Benzodiazepines Ql (U) Negative [facility] Methadone Screen Ql (U) Negative [facility] Opiates Screen Ql (U) Negative [facility] oxyCODONE Ql (U) Negative [facility] Phencyclidine Ql (U) Negative [facility] Laboratory - Microbiology an d Antimicrobial susceptibilityOrdered By: Nichole Feng on 09-15-2023 SARS-CoV-2 (COVID-19) Ag IA.rapid Ql (Resp) Negative Negative [facility] Comment on above: A negative result do es not rule out the possibility of SARS-CoV-2 infection. NAAT-based methods should be considered for symptomatic patients presenting greater than seven days after onset of symptoms. Method: Lateral flow immunoassay. Fact sheets for healthcare providers and patients can be found at the following sites: https://www.fda.gov/media/487199/download https://www.fda.gov/media/012366/download No Panel InformationOrdered By: Lisa Srinivasan on 09-15-2023 COCAINE METAB. SCREEN Negative [facility] The expected value for all of [...] is needed, request confirmation under separate order. [facility] No Panel InformationOrdered By: Georgette Jenkins on 09-15-2023 [facility] No Panel Informationon 09-14 [facility] SARS-CoV-2 (COVID-19) Ag IA. rapid Ql (Resp)Ordered By: Nichole Feng on 09-15-2023 Interpretation and review of laboratory results Normal [facility] Urinalysis complete panel (U )Ordered By: Sofía Torres on 09-15-2023 Bacteria LM.HPF (Urine sed) [#/Area] Few Abnormal Negative /HPF [facility] Bilirubin Ql (U) Negative Negative mg/dL [facility] Clarity (U) Turbid Abnormal Clear [facility] Color (U) Yellow Lt. Yellow [facility] Epithelial cells.squamous LM.HPF (Urine sed) [#/Area] 6-10 Abnormal [facility] Glucose Ql (U) Normal Normal (<70) mg/dL [facility] Hemoglobin Ql (U) Negative Negative mg/dL [facility] Interpretation and review of laboratory results Abnormal [facility] Ketones (U) [Mass/Vol] 80 mg/dL Abnormal Negative [facility] Leukocyte esterase Test strip Ql (U) 250 Abnormal Negative Natalio/uL [facility] Mucus LM.HPF (Urine sed) [#/Area] Few Negative /LPF [facility] Nitrite Ql (U) Negative Negative [facility] pH (U) 8.0 [pH] 5.0 - 8.0 pH [facility] Protein (U) [Mass/Vol] 50 mg/dL Abnormal Negative [facility] RBC LM.HPF (Urine sed) [#/Area] 11- Abnormal [facility] Specific gravity (U) [Rel density] 1.025 1.005 - 1.030 [facility] Urobilinogen (U) [Mass/Vol] Normal Normal (0-1) mg/dL [facility] WBC LM.HPF (Urine sed) [#/Area] 3-5 [facility] Neisseria gonorrhoeae genita l PCROrdered By: Anirudh Jerez on 03-17-2023 N. gonorrhoeae DNA KALLIE+probe Ql (Genital specimen) [facility] No Panel InformationOrdered By: Anirudh Jerez on 03-17-2023 Chlamydia trachomatis (PCR) [facility] Trichomonas vaginalis DNA [facility] Comprehensive metabolic 2000 panelon 01-28-2023 Albumin [Mass/Vol] 4.2 g/dL Normal 3.9-4.9 [facility] Comment on above: Order Comment: Speci men Type: BLOOD SPECIMENOrdering Facility: [facility] Address: [address] [place] [address] Performed By: #### 2 4323-8 ####[facility] [id number] [place] [address] [place] ALP [Catalytic activity/Vol] 61 U/L Normal 34-123 [facility] Comment on above: Order Comment: Speci men Type: BLOOD SPECIMENOrdering Facility: [facility] Address: [address] [place] [address] Performed By: #### 2 4323-8 ####[facility] LABCLIA [id number] [address] [address] [place] ALT [Catalytic activity/Vol] 19 U/L Normal 7-38 [facility] Comment on above: Order Comment: Speci men Type: BLOOD SPECIMENOrdering Facility: [facility] Address: [address] [place] [address] Performed By: #### 2 4323-8 ####[facility] LABCLIA [id number] [address] [address] [place] Anion gap [Moles/Vol] 13 mmol/L Normal 9-18 [facility] Comment on above: Order Comment: Speci men Type: BLOOD SPECIMENOrdering Facility: [facility] Address: [address] [place] [address] Performed By: #### 2 4323-8 ####[facility] [id number] [address] [address] [place] AST [Catalytic activity/Vol] 14 U/L Normal 13-35 [facility] Comment on above: Order Comment: Speci men Type: BLOOD SPECIMENOrdering Facility: [facility] Address: [address] [place] [address] Performed By: #### 2 4323-8 ####[facility] [id number] [address] [address] [place] Bilirubin [Mass/Vol] 0.2 mg/dL Normal 0.2-1.3 [facility] Comment on above: Order Comment: Speci men Type: BLOOD SPECIMENOrdering Facility: [facility] [place] Address: [address] [place] [address] Performed By: #### 2 4323-8 ####[facility] [id number] [address] [address] [place] Calcium [Mass/Vol] 9.8 mg/dL Normal 8.5-10.2 [facility] Comment on above: Order Comment: Speci men Type: BLOOD SPECIMENOrdering Facility: [facility] Address: [address] [place] [address] Performed By: #### 2 4323-8 ####[facility] [id number] [address] [address] [place] Chloride [Moles/Vol] 103 mmol/L Normal 97-105 [facility] Comment on above: Order Comment: Speci men Type: BLOOD SPECIMENOrdering Facility: [facility] [place] Address: [address] [place], [place] [address] [address] Performed By: #### 2 4323-8 ####[facility] [id number] [place] [address] [place] CO2 [Moles/Vol] 19 mmol/L Low 22-30 [facility] Comment on above: Order Comment: Speci men Type: BLOOD SPECIMENOrdering Facility: [facility] [place] Address: [address] [place] [address] Performed By: #### 2 4323-8 ####[facility] [id number] [address] STATES OF [facility] Creatinine [Mass/Vol] 0.88 mg/dL Normal 0.58-0.96 [facility] Comment on above: Order Comment: Speci men Type: BLOOD SPECIMENOrdering Facility: [facility] [place] Address: [address] [place] [address] Performed By: #### 2 4323-8 ####[facility] [id number] [address] STATES OF [facility] Creatinine and Glomerular filtration rate.predicted panel (S/P/Bld) 93 mL/min/1.73m??? Normal >=60 [facility] Comment on above: Order Comment: Speci men Type: BLOOD SPECIMENOrdering Facility: [facility] [facility] [place] Address: [address] [place] [address] Result Comment: Loren mated Glomerular Filtration Rate [...] actual GFR. Performed By: #### 2 4323-8 ####[facility] LABCLIA [id number] [address] [address] [place] Glucose [Mass/Vol] 109 mg/dL High 74-99 [facility] Comment on above: Order Comment: Speci men Type: BLOOD SPECIMENOrdering Facility: [facility] [place] Address: [address] [place] [address] Result Comment: The [place] Diabetes Association (ADA) provides guidance for cutoff [...] Standards of Medical Care in Diabetes 2016, [place] Diabetes Association. Diabetes Care. 2016.39(Suppl 1). Performed By: #### 2 4323-8 ####[facility] LABIA [id number] [address] [address] [place] Potassium [Moles/Vol] 4.9 mmol/L Normal 3.7-5.1 [facility] Comment on above: Order Comment: Speci men Type: BLOOD SPECIMENOrdering Facility: [facility] [place] Address: [address] [place] [address] Performed By: #### 2 4323-8 ####[facility] LABIA [id number] [address] [address] [place] Protein [Mass/Vol] 7.3 g/dL Normal 6.3-8.0 [facility] Comment on above: Order Comment: Speci men Type: BLOOD SPECIMENOrdering Facility: [facility] [place] Address: [address] [place] [address] Performed By: #### 2 4323-8 ####[facility] LABCLIA [id number] [place] [address] [place] Sodium [Moles/Vol] 135 mmol/L Low 136-144 [facility] Comment on above: Order Comment: Speci men Type: BLOOD SPECIMENOrdering Facility: [facility] [place] Address: [address] [place] [address] Performed By: #### 2 4323-8 ####[facility] LABIA [id number] [place] [address] [place] Urea nitrogen [Mass/Vol] 19 mg/dL Normal 7-21 [facility] Comment on above: Order Comment: Speci men Type: BLOOD SPECIMENOrdering Facility: [facility] [place] Address: [address] [place] [address] Performed By: #### 2 4323-8 ####[facility] LABIA [id number] [place] [address] [place] Absolute lymphocyte countOrd ered By: Jonathan Ernst on 01-14-2023 Lymphocytes Auto (Unsp spec) [#/Vol] 4.09 10*3/uL 0.83-4.51 [facility] Basophil percentageOrdered B y: Jonathan Ernst on 01-14-2023 Basophils/100 WBC (Bld) 0.4 % 0-1 [facility] Chloride [Moles/Vol] 111 mmol/L 98-107 [facility] Eosinophils/100 WBC (Bld) 1.1 % 0-5 [facility] Glucose [Mass/Vol] 132 mg/dL 74-106 [facility] Comment on above: Fasting Glucose resu lt greater than or equal to 126 mg/dL suggests DIABETES MELLITUS per A.D.A. criteria. Neutrophils (Bld) [#/Vol] 8.9 10*3/uL 2.0-7.7 [facility] Neutrophils/100 WBC (Bld) 61.6 % 47-70 [facility] Potassium [Moles/Vol] 3.7 mmol/L 3.5-5.1 [facility] Sodium [Moles/Vol] 140 mmol/L 136-145 [facility] WBC (Bld) [#/Vol] 14.5 10*3/uL 4.4-11.0 [facility] Blood erythrocytes count (nu mber/volume)Ordered By: Jonathan Ernst on 01-14-2023 RBC (Bld) [#/Vol] 4.61 10*6/uL 4.2-5.4 [facility] Blood hemoglobin measurement (mass/volume)Ordered By: Jonathan Ernst on 01-14-2023 Hemoglobin (Bld) [Mass/Vol] 14.2 g/dL 12.0-15.0 [facility] Blood lymphocytes/100 leukoc ytesOrdered By: Jonathan Ernst on 01-14-2023 Lymphocytes/100 WBC (Bld) 28.2 % 19-41 [facility] Blood monocytes/100 leukocyt esOrdered By: Jonathan Ernst on 01-14-2023 Monocytes/100 WBC (Bld) 8.4 % 0-10 [facility] Blood platelet mean volumeOr dered By: Jonathan Ernst on 01-14-2023 Platelet mean volume (Bld) [Entitic vol] 9.9 fL 6.2-12.0 [facility] Determination of erythrocyte mean corpuscular volume (MCV)Ordered By: Jonathan Ernst on 01-14-2023 MCV (RBC) [Entitic vol] 90.7 fL 81-99 [facility] Hematocrit Auto (Bld) [Volum e fraction]Ordered By: Jonathan Ernst on 01-14-2023 Hematocrit (Bld) [Volume fraction] 41.8 % 37-47 [facility] Laboratory - Chemistry and C hemistry - challengeOrdered By: Jonathan Ernst on 01-14-2023 CO2 [Moles/Vol] 23.0 mmol/L 21.0-32.0 [facility] Urea nitrogen/Creatinine [Mass ratio] 19.9 mg/mg 10-20 [facility] Laboratory - Hematology and Cell countsOrdered By: Jonathan Ernst on 01-14-2023 Erythrocyte distribution width (RBC) [Entitic vol] 44.7 fL 35.1-43.9 [facility] Erythrocyte distribution width (RBC) [Ratio] 13.3 % 11.6-14.6 [facility] Immature granulocytes/100 WBC (Bld) 0.300 % 0.0-0.9 [facility] Comment on above: IG% - Immature Granu locytes (promyelocytes, myelocytes and metamyelocytes) > 1% indicates that a LEFT SHIFT is Present. MCH (RBC) [Entitic mass] 30.8 pg 27.0-32.0 [facility] Nucleated RBC/100 WBC (Bld) [Ratio] 0 % 0-5 [facility] MCHC Auto (RBC) [Mass/Vol]Or dered By: Jonathan Ernst on 01-14-2023 MCHC (RBC) [Mass/Vol] 34.0 g/dL 32-36 [facility] No Panel InformationOrdered By: Jonathan Ernst on 01-14-2023 Estimated Creatinine Clearance Calc 98.13 ml/min [facility] Estimated GFR (MDRD) Amer 96 mL/min >60 [facility] Comment on above: GFR Calc Estimated GFR (MDRD) Non-Af Amer 79 mL/min >60 [facility] Comment on above: Non- GFR Calc Platelets bldOrdered By: Osbaldo Ernst on 01-14-2023 Platelets (Bld) [#/Vol] 227 10*3/uL 150-450 [facility] Serum or plasma calcium karthikeyan urement (mass/volume)Ordered By: Jonathan Ernst on 01-14-2023 Calcium [Mass/Vol] 9.2 mg/dL 8.5-10.1 [facility] Serum or plasma creatinine m easurement (mass/volume)Ordered By: Jonathan Ernst on 01-14-2023 Creatinine [Mass/Vol] 0.90 mg/dL 0.55-1.02 [facility] Comment on above: The validity of the calculated GFR & GFRAA in patients over 70 years has not been determined. Clinical correlation is essential. Serum or plasma urea nitroge n measurement (mass/volume)Ordered By: Jonathan Ernst on 01-14-2023 Urea nitrogen [Mass/Vol] 18 mg/dL 7-18 [facility] Thin prep Papanicolaou smear with manual screeningOrdered By: Jonathan Ernst on 01-14-2023 Thin prep Papanicolaou smear with manual screening 6 5-15 [facility] CNOVon 08-15-2022 CNOV Office Visit (UCTR) ROSY RAWLS ([id number]) 1995 F Date Time Provider Department 08/15/22 8:45 AM [facility] During your visit today, we recorded the following information about you: Temperature Pulse Respiration Blood pressure 98.2 degrees 117/minute 18/minute 130/78 Santi Colunga APRN.[employer]TAIN 08/15/2022 10:14 AM Signed Subjective HPI Nontoxic-appearing [...] with primary (more content not included)... Normal [facility] XR ANKLE 3V AP/LAT/OBL LTon 08-15-2022 XR [...] Soft tissue swelling along the lateral malleolus. Technology Administrator: PSCChano Transcribe Date/Time: Aug 15 2022 9:47A Dictated by : CAMERON ROBLEDO MD This examination was interpreted and the report reviewed and electronically signed by: CAMERON ROBLEDO MD on Aug 15 2022 9:49AM EST [id number] CN Normal [facility] XR Ankle - left AP and Later al and obliqueon 08-15-2022 IMPRESSION: Soft tissue swelling along the lateral malleolus. Technology Administrator: PSCB Transcribe Date/Time: Aug 15 2022 9:47A [...] the lateral malleolus. DIVISION OF RADIOLOGY Provider, [facility] [place] - 08/15/2022 * * *Final Report* * [...] Soft tissue swelling along the lateral malleolus. Technology Administrator: PSCChano Transcribe Date/Time: Aug 15 2022 9:47A Dictated by : CAMERON ROBLEDO MD This examination was interpreted and the report reviewed and electronically signed by: CAMERON ROBLEDO MD on Aug 15 2022 9:49AM EST [facility] Radiology Study observation (narrative) Aria garcia [facility] XR Ankle - left AP and Later al and obliqueOrdered By: Ccf Provider on 08-15-[address] [facility]14 E2 [Mass/Vol] pg/mL Normal [facility] Comment on above: Order Comment: Speci men Type: BLOOD SPECIMENOrdering Facility: Myron Viveros Address: [address] [place] [address] Result Comment: This test is not suitable [...] 3243 pg/mL Second trimester : 1561 to 56010 pg/mL Third trimester : 8285 to >46954 pg/mL Post-menopausal Estradiol reference range: < 41 pg/mL Reference: 1. Estradiol - E2 (Estradiol III) [package insert V 3.0 [place]]. [facility], [place], [place], August 2015. Performed By: #### 2 243-4, 3024-7, 2839-9, 3051-0 ####[facility] LABCLIA [id number] [place] [address] [place] Progest SerPl-mCncon 023 Progesterone [Mass/Vol] ng/mL Normal See comment [facility] Comment on above: Order Comment: Speci men Type: BLOOD SPECIMENOrdering Facility: Myron Viveros DO Address: [address] [place] [address] Result Comment: Mens trual Cycle Progesterone Reference Ranges: Follicular: <1.0 ng/mL Ovulation: <12.1 ng/mL Luteal: 1.8 to 23.9 ng/mL. Progesterone Reference Ranges vary by gestational period: First Trimester: 11.0 to 44.3 ng/mL Second Trimester: 25.4 to 83.3 ng/mL Third Trimester: 58.7 to 214 ng/mL Post menopausal Progesterone: <0.5 ng/mL Reference: 1. Progesterone (Progesterone III) [package insert V 1.0 [place]]. [employer], [place], [place]. December 2014. Performed By: #### 2 243-4, 3024-7, 2839-9, 3051-0 ####[facility] LABCLIA [id number] [place] [address] [place] T3Free SerPl-mCncon 07-15-19 23 Free T3 [Mass/Vol] 3.3 pg/mL Normal 2.3-4.1 [facility] Comment on above: Order Comment: Speci men Type: BLOOD SPECIMENOrdering Facility: Myron Viveros DO Address: [address] [place] [address] Performed By: #### 2 243-4, 3024-7, 2839-9, 3051-0 ####[facility] LABCLIA [id number] [place] [id number] [place] T4 Free SerPl-mCncon 023 Free T4 [Mass/Vol] 1.2 ng/dL Normal 0.9-1.7 [facility] Comment on above: Order Comment: Speci men Type: BLOOD SPECIMENOrdering Facility: Myron Viveros DO Address: [address] [place] [address] Performed By: #### 2 243-4, 3024-7, 2839-9, 3051-0 ####[facility] LABCLIA [id number] [place] [address] [place] Testost SerPl-mCncon 023 Testosterone [Mass/Vol] ng/dL Normal <40 [facility] Comment on above: Order Comment: Violet bonilla Type: BLOOD SPECIMEN Ordering Facility: Myron Rafiart Address: [address] [place] [address] Result Comment: Resu lt rechecked. Performed By: #### 2 986-8 #### [facility] CLIA [id number] [address] [place], [place] [id number] [place] Estradiol SerPl-mCncon 05-20 E2 [Mass/Vol] pg/mL Normal [facility] Comment on above: Order Comment: Violet [...] 3243 pg/mL Second trimester : 1561 to 66879 pg/mL Third trimester : 8285 to >95665 pg/mL Post-menopausal Estradiol reference range: < 41 pg/mL Reference: 1. Estradiol - E2 (Estradiol III) [package insert V 3.0 [place]]. [facility], [place], [place], August 2015. Performed By: #### 3 024-7, 2839-9, 2243-4, 3051-0 #### [facility] CLIA [id number] [address] [place], [place] [address] [place] Progest SerPl-mCncon 023 Progesterone [Mass/Vol] 0.2 ng/mL Normal See comment [facility] Comment on above: Order Comment: Violet irene Type: BLOOD SPECIMEN Ordering Facility: External Submitter [...] Progesterone (Progesterone III) [package insert V 1.0 [place]]. [facility], [place], [place]. December 2014. Performed By: #### 3 024-7, 2839-9, 2243-4, 305-0 #### [facility] CLIA [id number] [address] [place] [address] [place] T3Free SerPl-mCncon 05-20-19 23 Free T3 [Mass/Vol] 3.4 pg/mL Normal 2.3-4.1 [facility] Comment on above: Order Comment: Speci men Type: BLOOD SPECIMEN Ordering Facility: External Submitter Address: , , Performed By: #### 3 024-7, 2839-9, 3-4, 3050-0 #### [facility] CLIA [id number] [address] [place] [address] [place] T4 Free SerPl-mCncon 023 Free T4 [Mass/Vol] 1.1 ng/dL Normal 0.9-1.7 [facility] Comment on above: Order Comment: Speci irene Type: BLOOD SPECIMEN Ordering Facility: External Submitter Address: , , Performed By: #### 3 024-7, 2839-9, 2243-4, 305-0 #### [facility] CLIA [id number] [address] [place] [address] [place] TSH SerPl-aCncon 05-20-2022 TSH Qn 1.030 m[IU]/L Normal 0.270-4.200 [facility] Comment on above: Order Comment: Violet [...] Coe et al. 2017 Guidelines of the [place] Thyroid Association for the Diagnosis and Management of Thyroid Disease during and the . Thyroid, 2017:27:3:315-389. Performed By: #### 3 016-3, 2986-8 ####[facility] LABCLIA [id number] [address] [place] Testost SerPl-mCncon 05-20-2 023 Testosterone [Mass/Vol] 20 ng/dL Normal <40 [facility] Comment on above: Order Comment: Speci men Type: BLOOD SPECIMEN Ordering Facility: External Submitter Address: , , Performed By: #### 3 016-3, 2986-8 #### [facility] CLIA [id number] STATES OF [facility] US THYROID/PARATHYROIDon US THYROID/PARATHYROID * * *Final Report * * * DATE OF EXAM: Feb 28 2022 10:21AM [facility] 1048 - US THYROID/PARATHYROID / [...] 2 points Echogenicity: Hypoechoic, 2 points Shape: Ewqjm-vjoj-fktz, 0 points Margin: Smooth, 0 points Echogenic [...] 2 points Echogenicity: Hypoechoic, 2 points Shape: Tahno-sgwl-hktw, 0 points Margin: Smooth, 0 points Echogenic [...] not consider stability or previous biopsy results. Technology Administrator: JESUS Transcribe Date/Time: Feb 28 2022 5:54P Dictated by : CAMERON ROBLEDO MD This examination was interpreted and the report reviewed and electronically signed by: CAMERON ROBLEDO MD on Feb 28 2022 5:57PM EST [id number] CN Normal [facility]26 E2 [Mass/Vol] pg/mL Normal [facility] Comment on above: Order Comment: Speci men Type: BLOOD SPECIMENOrdering Facility: [facility] Address: [address] [place] [address] Result Comment: This test is not suitable [...] 3243 pg/mL Second trimester : 1561 to 19220 pg/mL Third trimester : 8285 to >98740 pg/mL Post-menopausal Estradiol reference range: < 41 pg/mL Reference: 1. Estradiol - E2 (Estradiol III) [package insert V 3.0 [place]]. [employer], [place], [place], August 2015. Performed By: #### 2 243-4, 3051-0, 2839-9, 3024-7 ####[facility] LABIA [id number] [place] [id number] [place] Progest SerPl-mCncon 022 Progesterone [Mass/Vol] 0.3 ng/mL Normal See comment [facility] Comment on above: Order Comment: Speci men Type: BLOOD SPECIMENOrdering Facility: [facility] Address: [address] [place] [address] Result Comment: Mens trual Cycle Progesterone Reference Ranges: Follicular: <1.0 ng/mL Ovulation: <12.1 ng/mL Luteal: 1.8 to 23.9 ng/mL. Progesterone Reference Ranges vary by gestational period: First Trimester: 11.0 to 44.3 ng/mL Second Trimester: 25.4 to 83.3 ng/mL Third Trimester: 58.7 to 214 ng/mL Post menopausal Progesterone: <0.5 ng/mL Reference: 1. Progesterone (Progesterone III) [package insert V 1.0 [place]]. [employer], [place]. December 2014. Performed By: #### 2 243-4, 3051-0, 2839-9, 3024-7 ####[facility] LABIA [id number] [place] [id number] [place] T3Free SerPl-mCncon 02-27-20 22 Free T3 [Mass/Vol] 4.1 pg/mL Normal 2.3-4.1 [facility] Comment on above: Order Comment: Speci men Type: BLOOD SPECIMENOrdering Facility: [facility] Address: [address] [place] [address] Performed By: #### 2 243-4, 3051-0, 2839-9, 3024-7 ####[facility] LABCLIA [id number] [address] [address] [place] T4 Free SerPl-mCncon 022 Free T4 [Mass/Vol] 1.0 ng/dL Normal 0.9-1.7 [facility] Comment on above: Order Comment: Speci men Type: BLOOD SPECIMENOrdering Facility: [facility] Address: [address] [place] [address] Performed By: #### 2 243-4, 3051-0, 2839-9, 3024-7 ####[facility] LABCLIA [id number] [place] [id number] [place] TSH SerPl-aCncon 02-26-2022 TSH Qn 0.288 m[IU]/L Normal 0.270-4.200 [facility] Comment on above: Order Comment: Speci men Type: BLOOD SPECIMENOrdering Facility: [facility] Address: [address] [place] [address] Result Comment: If t he patient is , TSH reference range varies by gestational period: First Trimester (weeks 9-12): 0.180-2.990 mIU/L Second Trimester: 0.110-3.980 mIU/L Third Trimester: 0.480-4.710 mIU/L Bentley Cavazos et al. A Practical Approach for the Verifications and Determination of Site- and Trimester-Specific Reference Intervals for Thyroid Function tests in . Thyroid, 2019:29:3:412-420. Ponce E, et al. 2017 Guidelines of the [place] Thyroid Association for the Diagnosis and Management of Thyroid Disease during and the . Thyroid, 2017:27:3:315-389. Performed By: #### 2 986-8, 3016-3 ####[facility] LABCLIA [id number] [place] [id number] [place] Testost SerPl-mCncon 022 Testosterone [Mass/Vol] 19 ng/dL Normal <40 [facility] Comment on above: Order Comment: Speci men Type: BLOOD SPECIMENOrdering Facility: [facility] Address: [address] [place], [place] [address] Performed By: #### 2 986-8, 3016-3 ####[facility] LABCLIA [id number] [facility] [id number] [place] [address] [place] MRI BRAIN W/O CONTRASTon [...] 12/23/2021 3:19:16 PM Ordering Provider: BRIA Christy [facility] ([place]) Basic Metabolic Panelon 12-0 Anion gap 13 mmol/L Normal [facility] Comment on above: Performed By: #### H EMDF, BMP3, LFT3, LIPA3, MG3 ####[place] [address] [place] [address] Calcium 9.5 mg/dL Normal 8.2-10.1 [facility] Comment on above: Performed By: #### H EMDF, BMP3, LFT3, LIPA3, MG3 ####[facility] Rqkijqgqh7510Qbhayl[place] [address] Chloride 101 mmol/L Normal 98-109 [facility] Comment on above: Performed By: #### H EMDF, BMP3, LFT3, LIPA3, MG3 ####[facility] Fdlawaewv6735QbvrtuC[place] [address] CO2 25 mmol/L Normal 21-32 [facility] Comment on above: Performed By: #### H EMDF, BMP3, LFT3, LIPA3, MG3 ####[facility] [address] [address] Creatinine 0.92 mg/dL Normal 0.55-1.40 [facility] Comment on above: Performed By: #### H EMDF, BMP3, LFT3, LIPA3, MG3 ####[facility] [address] [address] eGFR (black) mL/min/{1.73_m2} Normal >60 [facility] Comment on above: Performed By: #### H EMDF, BMP3, LFT3, LIPA3, MG3 ####[address] [address] eGFR (non-black) mL/min/{1.73_m2} Normal >60 [facility] Comment on above: Result Comment: Sour ce- MDRD equation with creatinine calibration to IDMS(NKDEP)eGFR not recommended for drug dose adjustment Performed By: #### H EMDF, BMP3, LFT3, LIPA3, MG3 ####[facility] [address] [address] Glucose mass conc 92 mg/dL Normal 70-100 [facility] Comment on above: Performed By: #### H EMDF, BMP3, LFT3, LIPA3, MG3 ####[place] [address]jismqw8858Zzmttc[place] [address] Potassium molar conc 3.5 mmol/L Normal 3.5-5.1 [facility] Comment on above: Performed By: #### H EMDF, BMP3, LFT3, LIPA3, MG3 ####[facility] Qtmlekbzc1174Fubgby[place] [address] Sodium 138 mmol/L Normal 135-145 [facility] Comment on above: Performed By: #### H EMDF, BMP3, LFT3, LIPA3, MG3 ####[facility] Ytotrhpiv9567Zacwav[place] [address] Urea nitrogen 10 mg/dL Normal 7-25 [facility] Comment on above: Performed By: #### H EMDF, BMP3, LFT3, LIPA3, MG3 ####[place] [address]Lmnzfhoef6125Ajqzsk[place] [address] CR Abdomen APon 02-22-2017 CR Abdomen AP Patient Name: ROSY RAWLS Diagnostic Radiology Exam Date/Time 02/22/2017 20:48:54 EST Exam CR Abdomen AP Ordering Physician DO ESPARZA RACHAEL C Accession Number [id number] CPT4 Codes 75878 () Reason For Exam abd pain Report [...] Transcribed Date and Time: 02/22/2017 8:52 Normal [facility] HCG,Urine Qualon 02-22-2017 HCG.beta subunit ( test) Ql (U) Negative Normal Negative [facility] Comment on above: Result Comment: Preg sophia is the most common reason for HCG in urine, althoughchoriocarcinoma, hydatidiform mole, and certain nontropho-blastic malignancies also result in detectable urinary HCGlevels. Sensitivity = 20mIU/mL. Performed By: #### U AMAC, HCGUR ####[facility] Crdsmqtqy9027EbssncHenry [place] [address] Hemogram w/ Autodiffon 02-22 Abs Baso Cnt 0.0 10*3/uL Normal 0.0-0.2 [facility] Comment on above: Performed By: #### H EMDF, BMP3, LFT3, LIPA3, MG3 ####[facility] Xnwpxgekq0754CjmnzuHenry [place] [address] Basophils/100 WBC Auto (Bld) 0.5 % Normal [facility] Comment on above: Performed By: #### H EMDF, BMP3, LFT3, LIPA3, MG3 ####[facility] Bjwqbruoz9884FblmkdHenry [place] [address] Eosinophils 0.1 10*3/uL Normal 0.0-0.5 [facility] Comment on above: Performed By: #### H EMDF, BMP3, LFT3, LIPA3, MG3 ####[facility] Zoimoikfn3023KbkuwiHenry [place] [address] Eosinophils/100 leukocytes 0.9 % Normal [facility] Comment on above: Performed By: #### H EMDF, BMP3, LFT3, LIPA3, MG3 ####[facility] Fiwyermjb2677YbncvfHenry [place] [address] Erythrocyte distribution width Auto Ratio (RBC) 12.8 % Normal 11.5-14.5 [facility] Comment on above: Performed By: #### H EMDF, BMP3, LFT3, LIPA3, MG3 ####[facility] Uigzirkui4593YvkdlrHenry [place] [address] Erythrocytes (RBC) 5.09 10*6/uL Normal 3.80-5.20 [facility] Comment on above: Performed By: #### H EMDF, BMP3, LFT3, LIPA3, MG3 ####[facility] Wpiwoefva5481TbxhyhHenry [place] [address] Granulocytes/100 WBC (Bld) 53.5 % Normal [facility] Comment on above: Performed By: #### H EMDF, BMP3, LFT3, LIPA3, MG3 ####[facility] Cwijlhyjk0281NkudkpCelina, [place] [address] Hematocrit (HCT) 45.9 % Normal 35.0-47.0 [facility] Comment on above: Performed By: #### H EMDF, BMP3, LFT3, LIPA3, MG3 ####[facility] [address]oks[address] [place] [address] Hemoglobin mass conc (Bld) 15.5 g/dL Normal 11.7-16.0 [facility] Comment on above: Performed By: #### H EMDF, BMP3, LFT3, LIPA3, MG3 ####[facility] Yxrlyatkq9435XysxtkC[place] [address] Lymphocytes 3.4 10*3/uL Normal [facility] Comment on above: Performed By: #### H EMDF, BMP3, LFT3, LIPA3, MG3 ####[facility] [address]hl[address] [place] [address] Lymphocytes/100 leukocytes 37.2 % Normal [facility] Comment on above: Performed By: #### H EMDF, BMP3, LFT3, LIPA3, MG3 ####[facility] Yeqtruckk4491CmidirC[place] [address] MCH 30.4 pg Normal 26.0-34.0 [facility] Comment on above: Performed By: #### H EMDF, BMP3, LFT3, LIPA3, MG3 ####[facility] [address] [place] [address], [place] [address] MCHC mass conc (RBC) 33.7 % Normal 32.0-36.0 [facility] Comment on above: Performed By: #### H EMDF, BMP3, LFT3, LIPA3, MG3 ####[facility] Tdcgglsrp7390Nykigo[place] [address] MCV 90.1 fL Normal 79.0-98.0 [facility] Health Comment on above: Performed By: #### H EMDF, BMP3, LFT3, LIPA3, MG3 ####[facility] Mjlmimtyy1742Bsnpil [facility] [place] [address] Monocytes 0.7 10*3/uL Normal 0.0-0.8 [facility] Comment on above: Performed By: #### H EMDF, BMP3, LFT3, LIPA3, MG3 ####[facility] Epqkgbmqz3181UrlvmeHenry [place] [address] Monocytes/100 leukocytes 7.9 % Normal [facility] Comment on above: Performed By: #### H EMDF, BMP3, LFT3, LIPA3, MG3 ####[facility]itage Wltcozbqx3838Hmnrog [place] [address] Neutrophils 4.9 10*3/uL Normal 1.8-7.0 [facility] Comment on above: Performed By: #### H EMDF, BMP3, LFT3, LIPA3, MG3 ####[facility] Jlvapygdk4364AreaslHenry [place] [address] Platelet mean volume (PMV) 9.2 fL Normal 7.4-10.4 [facility] Comment on above: Performed By: #### H EMDF, BMP3, LFT3, LIPA3, MG3 ####Her[facility] Zcjndhitp9544Pnc[place]ps [place] [address] Platelets 173 10*3/uL Normal 140-440 [facility] Comment on above: Performed By: #### H EMDF, BMP3, LFT3, LIPA3, MG3 ####[facility]itage Ihmpxsksq3780Bcvlxe [place] [address] WBC (Leukocytes) 9.1 10*3/uL Normal 3.6-10.7 [facility] Comment on above: Performed By: #### H EMDF, BMP3, LFT3, LIPA3, MG3 ####[facility] Kynfsvwln6690Idppnq [facility] [place] [address] Hepatic Functionon 7 Alanine aminotransferase (ALT) 32 U/L Normal 12-78 [facility] Comment on above: Performed By: #### H EMDF, BMP3, LFT3, LIPA3, MG3 ####[facility]itage Vbuvjvegt6867[place]yx[place] [address] Albumin 3.6 g/dL Normal 3.4-5.0 [facility] Comment on above: Performed By: #### H EMDF, BMP3, LFT3, LIPA3, MG3 ####[facility] [address] [place] [address] Alkaline phosphatase (ALP) 59 U/L Normal 45-117 [facility] Comment on above: Performed By: #### H EMDF, BMP3, LFT3, LIPA3, MG3 ####[facility] Mgcjnzmse0370Vezmop[place] [address] Aspartate aminotransferase (AST) 17 U/L Normal 15-37 [facility] Comment on above: Performed By: #### H EMDF, BMP3, LFT3, LIPA3, MG3 ####[facility]itage Eftfyojeo7059Eosced[place] [address] Bilirubin (direct) 0.1 mg/dL Normal 0.0-0.2 [facility] Comment on above: Performed By: #### H EMDF, BMP3, LFT3, LIPA3, MG3 ####[place] [address]Chqntelcl1571Oszbpg[place] [address] Bilirubin (total) 0.4 mg/dL Normal 0.2-1.0 [facility] Comment on above: Performed By: #### H EMDF, BMP3, LFT3, LIPA3, MG3 ####[facility] Drztgvmit2702JwuuvdHenry [place] [address] Protein 7.9 g/dL Normal 6.4-8.2 [facility] Comment on above: Performed By: #### H EMDF, BMP3, LFT3, LIPA3, MG3 ####[facility] Vwhasyvcu9071IckhriC[place] [address] Lipaseon 02-22-2017 Lipase 163 [IU]/L Normal 73-393 [facility] Comment on above: Performed By: #### H EMDF, BMP3, LFT3, LIPA3, MG3 ####[facility] Ytymbepyk7312RhxqssHenry [place] [address] Magnesiumon 02-22-2017 Magnesium 2.0 mg/dL Normal 1.8-2.4 [facility] Comment on above: Performed By: #### H EMDF, BMP3, LFT3, LIPA3, MG3 ####[facility] Jhbkbzkik5874TaecctHenry [place] [address] Urinalysis,Macroon 7 Bilirubin (direct) Negative Normal Negative [facility] Comment on above: Performed By: #### U AMAC, HCGUR ####[facility] Mkpfmbjzo0816NoyecgHenry [place] [address] Ketone,Urine Negative Normal Negative [facility] Comment on above: Performed By: #### U AMAC, HCGUR ####Herita Ajjrexaqb0432BkujdfHenry [place] [address] Occult Blood,Ur Negative Normal Negative [facility] Comment on above: Performed By: #### U AMAC, HCGUR ####[place] [address]Mdcpdrfzj5507NolfeqHenry [place] [address] Specific [place],Urine 1.015 Normal 1.005-1.030 S [facility] Comment on above: Performed By: #### U AMAC, HCGUR ####[facility] Mmnhwxkiw5876KvmtejHenry [place] [address] Total Protein,Urine Negative Normal Negative [facility] Comment on above: Performed By: #### U AMAC, HCGUR ####Heritage Qcnmxesej5779QkxxsbHenry [place] [address] Urine, appearance Clear Normal Clear [facility] Comment on above: Performed By: #### U AMAC, HCGUR ####[facility] Vdcsrprns8744FzndklHenry [place] [address] Urine, color Yellow Normal Lt. Yellow [facility] Comment on above: Performed By: #### U AMAC, HCGUR ####Heritage Vqqlvfezc0388Giqywy [facility] [place] [address] Urine, glucose presence NEG (Normal) Normal Negative [facility] Comment on above: Performed By: #### U AMAC, HCGUR ####Heritage Fuepjnkky6616[address] [address] Urine, nitrite presence Negative Normal Negative [facility] Comment on above: Performed By: #### U AMAC, HCGUR ####[facility] Nxpuqwmed1439I[place] [address] Urine, pH 7.0 [pH] Normal 5.0-8.0 [facility] Comment on above: Performed By: #### U AMAC, HCGUR ####Heritage Xzpodnklh[address]24E[place] [place] [address] Urine, urobilinogen Normal (0.2) Normal 0-1 [facility] Comment on above: Performed By: #### U AMAC, HCGUR ####[facility] Ceqwtramq8673OmwpcfHenry [place] [address] WBC (Leukocytes) Negative Normal Negative [facility] Comment on above: Performed By: #### U AMAC, HCGUR ####Heritage Hljfkwwfz9366Vq[place] [address] ED Note-Provideron 7 ED Note-Provider Normal [facility] ED Note-Provider Normal [facility] Pathology Surgicalon 017 Pathology Surgical SEE BELOW [facility] Department of Pathology [address] [place] [id number] NAME: ROSY RAWLS 1995 ACCESSION NO: [id number]: VULVA, BIOPSY - CONDYLOMATOUS CHANGES PRESENT. NEGATIVE FOR DYSPLASIA.CLINICAL INFORMATION: VULVODYNIA UNSPECIFIEDPROCEDURE :SPECIMEN: VULVA BX D# [id number] DESCRIPTION:Received labeled: Rawls, NinaReceived in formalin labeled "vulvar biopsy" is a 0.4 x 0.4 x 0.1 tanskin. No discrete lesion is identified. The specimen is inked andbisected. All submitted in one cassette. dictated by MarcoMICROSCOPIC DESCRIPTION:Slides reviewed.CPT: 21538 JONATHAN CLANCY MD, PATHOLOGIST Page 1 of 1 Normal [facility] Comment on above: Performed By: #### S UR ####[facility], [address] [place] [address] Patient Summary Documentson 09-18-2016 Patient Summary Documents Normal [facility] Vital Signs Date Time Vital Sign Value Performing Clinician Facility 11-17-2024 08:20-0400 Body height 175.3 cm Josh Mccann MD Work Phone: [facility] 11-17-2024 08:20-0400 Body mass index (BMI) [Ratio] 35.15 kg/m2 Josh Mccann MD Work Phone: [facility] 11-17-2024 08:20-0400 Body weight 107.96 kg Josh Mccann MD Work Phone: [facility] 11-17-2024 08:20-0400 Diastolic blood pressure 88 mm[Hg] Josh Mccann MD Work Phone: [facility] 11-17-2024 08:20-0400 Heart rate 73 /min Josh Mccann MD Work Phone: [facility] 11-17-2024 08:20-0400 Systolic blood pressure 127 mm[Hg] Josh Mccann MD Work Phone: [facility] 11-03-2024 14:38-0400 Body temperature 96.8 [degF] Jaye Bowling TESTING COORDINATOR - [employer]LL[employer] SERVICE CAPTAIN Work Phone: [facility] 11-03-2024 14:38-0400 Diastolic blood pressure 67 mm[Hg] Jaye Bowling APRN - [employer] SERVICE CAPTAIN Work Phone: [facility] 11-03-2024 14:38-0400 Heart rate 69 /min Jaye Dash TESTING COORDINATOR - [employer] SERVICE CAPTAIN Work Phone: [facility] [employer] 11-03-2024 14:38-0400 Systolic blood pressure 125 mm[Hg] Jaye Dash TESTING COORDINATOR - [employer] SERVICE CAPTAIN Work Phone: [facility] [employer] 10-19-2024 14:00-0400 Diastolic blood pressure 77 mm[Hg] Bria Smith MD Work Phone: [facility] [employer] 10-19-2024 14:00-0400 Heart rate 82 /min Bria Smith MD Work Phone: [facility] [employer] 10-19-2024 14:00-0400 Respiratory rate 16 /min Bria Smith MD Work Phone: [facility] [employer] 10-19-2024 14:00-0400 Systolic blood pressure 121 mm[Hg] Bria Smith MD Work Phone: [facility] [employer] 10-18-2024 14:09-0400 Diastolic blood pressure 78 mm[Hg] Bria Smith MD Work Phone: [facility] [employer] 10-18-2024 14:09-0400 Heart rate 89 /min Bria Smith MD Work Phone: [facility] [employer] 10-18-2024 14:09-0400 Respiratory rate 15 /min Bria Smith MD Work Phone: [facility] [employer] 10-18-2024 14:09-0400 Systolic blood pressure 137 mm[Hg] Bria Smith MD Work Phone: [facility] [employer] 09-08-2024 14:19-0400 Diastolic blood pressure 99 mm[Hg] Jaye Bowling TESTING COORDINATOR - BE[employer] SERVICE CAPTAIN Work Phone: [facility] [employer] 09-08-2024 14:19-0400 Heart rate 62 /min Jaye Bowling TESTING COORDINATOR - [employer] SERVICE CAPTAIN Work Phone: [facility] [employer] 09-08-2024 14:19-0400 Systolic blood pressure 149 mm[Hg] Jaye Bowling TESTING COORDINATOR - [employer] SERVICE CAPTAIN Work Phone: [facility] [employer] 09-08-2024 13:50-0400 Body height 175.3 cm Jaye Bowling APRN - [employer] SERVICE CAPTAIN Work Phone: [facility] [employer] 09-08-2024 13:50-0400 Body mass index (BMI) [Ratio] 37.04 kg/m2 Jaye Bowling TESTING COORDINATOR - [employer] SERVICE CAPTAIN Work Phone: [facility] [employer] 09-08-2024 13:50-0400 Body weight 113.76 kg Jaye Bowling APRN - [employer] SERVICE CAPTAIN Work Phone: [facility] [employer] 07-05-2024 13:39-0400 Diastolic blood pressure 82 mm[Hg] Jaye Bowling APRN - [employer] SERVICE CAPTAIN Work Phone: [facility] [employer] Comment on above: Bp manual recheck 07-05-2024 13:39-0400 Systolic blood pressure 154 mm[Hg] Jaye Bowling TESTING COORDINATOR - [employer] SERVICE CAPTAIN Work Phone: [facility] [employer] Comment on above: Bp manual recheck 07-05-2024 13:04-0400 Body height 175.3 cm Jaye Bowling APRN - [employer] SERVICE CAPTAIN Work Phone: [facility] [employer] 07-05-2024 13:04-0400 Body mass index (BMI) [Ratio] 34.11 kg/m2 Jaye Bowling APRN - [employer] SERVICE CAPTAIN Work Phone: [facility] [employer] 07-05-2024 13:04-0400 Body temperature 98.1 [degF] Jaye Bowling APRN - [employer] SERVICE CAPTAIN Work Phone: [facility] [employer] 07-05-2024 13:04-0400 Body weight 104.78 kg Jaye Bowling APRN - [employer] SERVICE CAPTAIN Work Phone: [facility] [employer] 07-05-2024 13:04-0400 Heart rate 53 /min Jaye Bowling APRN - [employer] SERVICE CAPTAIN Work Phone: [facility] [employer] 06-22-2024 13:42-0400 Body temperature 97.59 [degF] Jaye Bowling TESTING COORDINATOR - [employer] SERVICE CAPTAIN Work Phone: [facility] [employer] 06-22-2024 13:42-0400 Diastolic blood pressure 78 mm[Hg] Jaye Bowling TESTING COORDINATOR - BELL[employer] SERVICE CAPTAIN Work Phone: [facility] [employer] 06-22-2024 13:42-0400 Heart rate 70 /min Jaye Bowling TESTING COORDINATOR - BE[employer] SERVICE CAPTAIN Work Phone: [facility] [employer] 06-22-2024 13:42-0400 Respiratory rate 16 /min Jaye Bowling TESTING COORDINATOR - BELL[employer] SERVICE CAPTAIN Work Phone: [facility] [employer] 06-22-2024 13:42-0400 SaO2% (BldA) [Mass fraction] 99 % Jaye Bowling TESTING COORDINATOR - [employer] SERVICE CAPTAIN Work Phone: [facility] [employer] 06-22-2024 13:42-0400 Systolic blood pressure 124 mm[Hg] Jaye Bowling TESTING COORDINATOR - [employer] SERVICE CAPTAIN Work Phone: [facility] [employer] 05-24-2024 10:24-0500 Body height 175.3 cm Jaye Bowling TESTING COORDINATOR - [employer] SERVICE CAPTAIN Work Phone: [facility] [employer] 05-24-2024 10:24-0500 Body mass index (BMI) [Ratio] 34.11 kg/m2 Jaye Bowling TESTING COORDINATOR - [employer]LL[employer] SERVICE CAPTAIN Work Phone: [facility] [employer] 05-24-2024 10:24-0500 Body weight 104.78 kg Jaye Bowling TESTING COORDINATOR - BE[employer] SERVICE CAPTAIN Work Phone: [facility] [employer] 05-24-2024 10:24-0500 Diastolic blood pressure 76 mm[Hg] Jaye Bowling TESTING COORDINATOR - [employer]LL[employer] SERVICE CAPTAIN Work Phone: [facility] [employer] 05-24-2024 10:24-0500 Systolic blood pressure 120 mm[Hg] Jaye Bowling TESTING COORDINATOR - BE[employer] SERVICE CAPTAIN Work Phone: [facility] [employer] 04-11-2024 13:16-0500 Body height 175.3 cm Jaye Bowling TESTING COORDINATOR - BELL[employer] SERVICE CAPTAIN Work Phone: [facility] [employer] 04-11-2024 13:16-0500 Body mass index (BMI) [Ratio] 34.11 kg/m2 Jaye Bowling TESTING COORDINATOR - [employer] SERVICE CAPTAIN Work Phone: [facility] [employer] 04-11-2024 13:16-0500 Body temperature 99.3 [degF] Jaye Bowling TESTING COORDINATOR - BELL[employer] SERVICE CAPTAIN Work Phone: [facility] [employer] 04-11-2024 13:16-0500 Body weight 104.78 kg Jaye Bowling TESTING COORDINATOR - BELL[employer] SERVICE CAPTAIN Work Phone: [facility] [employer] 04-11-2024 13:16-0500 Diastolic blood pressure 79 mm[Hg] Jaye Bowling APRN - BE[employer] SERVICE CAPTAIN Work Phone: [facility] [employer] 04-11-2024 13:16-0500 Heart rate 82 /min Jaye Bowling APRN - [employer] SERVICE CAPTAIN Work Phone: [facility] [employer] 04-11-2024 13:16-0500 Systolic blood pressure 136 mm[Hg] Jaye Bowling APRN - [employer] SERVICE CAPTAIN Work Phone: [facility] [employer] 09-15-2023 22:51-0400 Body temperature 97.59 [degF] Anshu Chinchilla MD Work Phone: [facility] [employer] 09-15-2023 22:51-0400 Diastolic blood pressure 78 mm[Hg] Anshu Chinchilla MD Work Phone: [facility] [employer] 09-15-2023 22:51-0400 Heart rate 70 /min Anshu Chinchilla MD Work Phone: [facility] [employer] 09-15-2023 22:51-0400 Respiratory rate 16 /min Anshu Chinchilla MD Work Phone: [employer] [employer] 09-15-2023 22:51-0400 SaO2% (BldA) [Mass fraction] 96 % Anshu Chinchilla MD Work Phone: [facility] [employer] 09-15-2023 22:51-0400 Systolic blood pressure 154 mm[Hg] Anshu Chinchilla MD Work Phone: [facility] 09-15-2023 [id number] Body height 175.3 cm Anshu Chinchilla MD Work Phone: [facility] 09-15-2023 [id number] Body mass index (BMI) [Ratio] 31.9 kg/m2 Anshu Chinchilla MD Work Phone: [facility] 09-15-2023 [id number] Body weight 97.98 kg Anshu Chinchilla MD Work Phone: [facility] 04-16-2023 13:34-0500 Body temperature 97.2 [degF] Jaye Bowling TESTING COORDINATOR - BELLH[employer] SERVICE CAPTAIN Work Phone: [facility] 04-16-2023 13:34-0500 Diastolic blood pressure 85 mm[Hg] Jaye Whitmoresey TESTING COORDINATOR - BELL[employer] SERVICE CAPTAIN Work Phone: [facility] 04-16-2023 13:34-0500 Heart rate 78 /min Jaye Bowling TESTING COORDINATOR - BELLH[employer] SERVICE CAPTAIN Work Phone: [facility] 04-16-2023 13:34-0500 Systolic blood pressure 128 mm[Hg] Jaye Bowling TESTING COORDINATOR - BELLH[employer] SERVICE CAPTAIN Work Phone: [facility] 01-14-2023 03:21-0400 Diastolic blood pressure 81 mm[Hg] [facility] 01-14-2023 03:21-0400 Heart rate 91 /min [facility] 01-14-2023 03:21-0400 Respiratory rate 18 /min [facility] 01-14-2023 03:21-0400 SaO2% (BldA) [Mass fraction] 99 % [facility] 01-14-2023 03:21-0400 Systolic blood pressure 131 mm[Hg] [facility] 01-14-2023 00:17-0400 Body height 175.26 cm [facility] 01-14-2023 00:17-0400 Body mass index (BMI) [Ratio] 33.2 kg/m2 [facility] 01-14-2023 00:17-0400 Body temperature 97 [degF] [facility] 01-14-2023 00:17-0400 Body weight 102.1 kg [facility] 10-22-2022 12:08-0400 Body height 175.3 cm Jaye Bowling TESTING COORDINATOR - BELLH[employer] SERVICE CAPTAIN Work Phone: [facility] [employer] 10-22-2022 12:08-0400 Body mass index (BMI) [Ratio] 32.78 kg/m2 Jaye Bowling TESTING COORDINATOR - BELLH[employer] SERVICE CAPTAIN Work Phone: [facility] [employer] 10-22-2022 12:08-0400 Body temperature 97.9 [degF] Jaye Bowling TESTING COORDINATOR - BELLHOP SERVICE CAPTAIN Work Phone: [employer] [employer] 10-22-2022 12:08-0400 Body weight 100.7 kg Jaye Bowling TESTING COORDINATOR - BELLH[employer] SERVICE CAPTAIN Work Phone: [facility] [employer] 10-22-2022 12:08-0400 Diastolic blood pressure 73 mm[Hg] Jaye Bowling TESTING COORDINATOR - BELLHOP SERVICE CAPTAIN Work Phone: [facility] [employer] 10-22-2022 12:08-0400 Heart rate 71 /min Jaye Bowling TESTING COORDINATOR - BELLH[employer] SERVICE CAPTAIN Work Phone: [facility] [employer] 10-22-2022 12:08-0400 Systolic blood pressure 143 mm[Hg] Jaye Bowling TESTING COORDINATOR - BELLHOP SERVICE CAPTAIN Work Phone: [employer] [employer] Encounters Encounter Date Encounter Type Care Provider Facility Start: 01-31-2025 ambulatory Chalon Viky Facility:[facility] Start: 01-16-2025 Encounter for gynecological examination (general) (routine) without abnormal findings Josie Latif [facility] Start: 12-22-2024 End: 12-22-2024 ambulatory Chalon Viky Facility:[facility] Start: 12-22-2024 End: 12-22-2024 ambulatory Chalon Viky Facility:[facility] Start: 12-22-2024 End: 12-22-2024 ambulatory Chalon Viky Facility:[facility] Start: 12-14-2024 End: 12-14-2024 ambulatory Chalon Viky Facility:[facility] Start: 12-05-2024 End: 12-05-2024 ambulatory Chalon Viky Facility:[facility] Start: 12-01-2024 End: 12-13-2024 Telephone encounter Jaye Dash WYNNN - [employer] SERVICE CAPTAIN Work Phone: [facility] Comment on above: Med Management (Gamm acore ) Start: 11-29-2024 End: 11-29-2024 Orders Only Jaye Bowling TESTING COORDINATOR - BELLH[employer] SERVICE CAPTAIN Work Phone: [facility] Start: 11-22-2024 End: 01-22-2025 Follow-up encounter Josh Mccann MD Work Phone: [facility] Pain Management [facility] Comment on above: XR cervical spine 2 or 3 views Start: 11-17-2024 End: 11-17-2024 Subsequent hospital visit by physician Josh Mccann MD Work Phone: [facility] Comment on above: Cervical spine pain; Myofascial neck pain Start: 11-17-2024 End: 11-17-2024 Office outpatient new 45 minutes Josh Mccann MD Work Phone: [facility] Comment on above: Myofascial neck pain (Primary Dx); Cervical spine pain Start: 11-17-2024 End: 11-17-2024 ambulatory JOSH MCCANN [facility] Start: 11-03-2024 End: 11-03-2024 Office outpatient visit 15 minutes Jaye Bowling APRN - [employer] SERVICE CAPTAIN Work Phone: [facility] Comment on above: Intractable chronic migraine without aura and without status migrainosus (Primary Dx) Start: 11-03-2024 End: 11-03[facility]20[facility] Start: 11-03-2024 End: 11-03-2024 ambulatory Chalankit Viky Facility:[facility] Start: 10-22-2024 End: 10-22-2024 Emergency department patient visit [facility] Facility:[facility] Start: 10-20-2024 End: 11-16-2024 Telephone encounter Bria Smith MD Work Phone: [facility] Comment on above: Other (infusioin) Start: 10-19-2024 End: 10-19-2024 Patient encounter procedure Bria Smith MD Work Phone: [facility] Comment on above: Chronic migraine wit hout aura without status migrainosus, not intractable (Primary Dx); Intractable chronic migraine without aura and without status migrainosus Start: 10-19-2024 End: 10-19-2024 ambulatory CHALON VIKY [facility] Start: 10-18-2024 End: 10-18-2024 Patient encounter procedure Bria Smith MD Work Phone: [facility] Comment on above: Chronic migraine wit hout aura without status migrainosus, not intractable (Primary Dx); Intractable chronic migraine without aura and without status migrainosus Start: 10-18-2024 End: 10-18-2024 ambulatory CHALON VIKY [facility] Start: 10-12-2024 End: 10-12-2024 ambulatory Hugo Davey Facility:[facility] Start: 09-22-2024 End: 09-22-2024 ambulatory Chalon Viky Facility:[facility] Start: 09-14-2024 End: 09-14-2024 ambulatory Chalon Viky Facility:[facility] Start: 09-08-2024 End: 09-08-2024 Office outpatient visit 15 minutes Jaye Bowling APRN - [employer] SERVICE CAPTAIN Work Phone: [facility] Comment on above: Intractable chronic migraine without aura and without status migrainosus (Primary Dx) Start: 09-08-2024 End: 09-08-2024 ambulatory JAYE DASH [facility] Start: 09-07-2024 End: 10-07-2024 Telephone encounter Jaye Bowling APRN - BE[employer] SERVICE CAPTAIN Work Phone: [facility] Comment on above: Appointment Request Start: 09-02-2024 End: 09-02-2024 ambulatory Chalon Viky Facility:[facility] Start: 08-18-2024 End: 08-18-2024 ambulatory Chalon Viky Facility:[facility] Start: 07-20-2024 End: 07-20-2024 ambulatory Chalon Viky Facility:[facility] Start: 07-05-2024 End: 07-05-2024 Office outpatient visit 15 minutes Jaye Bowling APRN - BE[employer] SERVICE CAPTAIN Work Phone: [facility] Comment on above: Intractable chronic migraine without aura and without status migrainosus (Primary Dx) Start: 07-05-2024 End: 07-05-2024 ambulatory [facility] Start: 06-22-2024 End: 06-22-2024 Subsequent hospital visit by physician Jaye Bowling APRN - BELLH[employer] SERVICE CAPTAIN Work Phone: [facility] Comment on above: Multiple sclerosis ( HCC) Start: 06-22-2024 End: 06-22-2024 ambulatory [facility] Start: 06-17-2024 End: 07-05-2024 [facility] Start: 06-17-2024 End: 07-05-2024 Patient encounter [facility] Comment on above: Multiple sclerosis ( HCC) (Primary Dx) Start: 06-17-2024 End: 07-01-2024 Telephone encounter Karol Gomez RN [facility] Comment on above: Other (MRI results) Start: 06-14-2024 End: 06-14-2024 ambulatory [facility] Facility:[facility] Start: 06-10-2024 End: 06-10-2024 ambulatory [facility] Facility:[facility] Start: 05-24-2024 End: 05-24-2024 Office outpatient visit 15 minutes Jaye Bowling APRN - BELLH[employer] SERVICE CAPTAIN Work Phone: [facility] Comment on above: Intractable chronic migraine without aura and without status migrainosus (Primary Dx) Start: 05-24-2024 End: 05-24-2024 [facility] Start: 05-17-2024 End: 05-17-2024 ambulatory Chalon Viky Facility:[facility] Start: 04-14-2024 End: 04-14-2024 Telephone encounter Jaye Bowling TESTING COORDINATOR - BELLH[employer] SERVICE CAPTAIN Work Phone: [facility] Clinical Communication Comment on above: Medication Problem Start: 04-11-2024 End: 04-11-2024 Office outpatient visit 15 minutes Jaye Bowling TESTING COORDINATOR - BELLHOP SERVICE CAPTAIN Work Phone: [facility] Comment on above: Intractable chronic migraine without aura and without status migrainosus (Primary Dx) Start: 04-11-2024 End: 04-11-2024 ambulatory JAYE BOWLING [facility] Start: 04-05-2024 End: 04-05-2024 ambulatory Chalon Viky Facility:[facility] Start: 03-24-2024 End: 03-25-2024 ambulatory Chalon Viky Facility:[facility] Start: 02-25-2024 End: 03-22-2024 ambulatory Chalon Viky Facility:[facility] Start: 02-15-2024 End: 02-15-2024 Telephone encounter Jaye Bowling TESTING COORDINATOR - BELLH[employer] SERVICE CAPTAIN Work Phone: [facility] Comment on above: Prior Authorization Start: 01-11-2024 End: 01-11-2024 Telephone encounter Jaye Bowling TESTING COORDINATOR - BELLH[employer] SERVICE CAPTAIN Work Phone: [facility] Comment on above: Med Management Start: 12-08-2023 End: 12-10-2023 Telephone encounter Cecilio Olivera PharmD [facility] Comment on above: Med Management Start: 10-20-2023 End: 12-09-2023 Telephone encounter Jaye Bowling TESTING COORDINATOR - BELLHOP SERVICE CAPTAIN Work Phone: [facility] Comment on above: Other (Unable to sri ch pt for Ajovy) Start: 09-15-2023 End: 09-15-2023 [facility] Start: 09-15-2023 End: 09-15-2023 Patient encounter procedure Heri Mcneal RN [facility] Clinical Communication Start: 09-15-2023 End: 09-15-2023 Emergency department patient visit Anshu Chinchilla MD Work Phone: [facility] Comment on above: Suicidal ideations ( Primary Dx) Start: 06-09-2023 Refill Jaye Bowling TESTING COORDINATOR - BELLH[employer] SERVICE CAPTAIN Work Phone: [facility] Start: 04-16-2023 End: 04-16-2023 Office outpatient visit 15 minutes Jaye Bowling TESTING COORDINATOR - BELLHOP SERVICE CAPTAIN Work Phone: [facility] Comment on above: Chronic migraine wit hout aura without status migrainosus, not intractable (Primary Dx) Start: 03-18-2023 End: 03-18-2023 ambulatory [facility] Work Phone: Start: 03-18-2023 End: 03-18-2023 Patient encounter procedure [facility], Specimen Work Phone: Start: 01-28-2023 End: 01-29-2023 ambulatory EDUARD COPPOLA Facility:[facility] Start: 01-14-2023 End: 01-14-2023 Emergency department patient visit [facility] Work Phone: Start: 10-22-2022 End: 10-22-2022 Office outpatient visit 15 minutes Jaye Bowling TESTING COORDINATOR - BELLHOP SERVICE CAPTAIN Work Phone: [facility] Comment on above: Chronic migraine wit hout aura without status migrainosus, not intractable (Primary Dx) Start: 09-19-2022 Telephone encounter Bria guzman MD Work Phone: [facility] Comment on above: Prior Authorization Start: 08-15-2022 End: 08-15-2022 ambulatory EDUARD COPPOLA Facility:[facility] Start: 08-15-2022 End: 08-15-2022 Subsequent hospital visit by physician [facility] Work Phone: Radiology Comment on above: Injury of left ankle , initial encounter [S99.912A] Start: 07-14-2022 End: 07-15-2022 ambulatory EDUARD COPPOLA Facility:[facility] Start: 07-08-2022 Telephone encounter Bria guzman MD Work Phone: [facility] Comment on above: Forms/questionnaires Start: 05-20-2022 End: 05-21-2022 ambulatory EDUARD COPPOLA Facility:[facility] Start: 02-28-2022 End: 02-28-2022 ambulatory EDUARD COPPOLA Facility:[facility] Start: 02-28-2022 End: 02-28-2022 Subsequent hospital visit by physician [facility] Work Phone: Radiology Start: 02-26-2022 End: 02-26-2022 ambulatory EDUARD COPPOLA Facility:[facility] Start: 02-25-2022 Telephone encounter Bria guzman MD Work Phone: [facility] Comment on above: Medication Problem Start: 12-23-2021 End: 12-24-2021 ambulatory BRIA SMITH MD Facility:[facility] Start: 12-23-2021 End: 12-23-2021 Patient encounter procedure BRIA SMITH MD [facility] Start: 03-31-2017 Ambulatory [facility] Start: 03-26-2017 Ambulatory [facility] Start: 02-22-2017 Ambulatory [facility] Start: 09-18-2016 End: 09-19-2016 Ambulatory MYRON VIVEROS Facility:[facility] Start: 09-18-2016 End: 09-18-2016 Emergency department patient visit EDUARD COPPOLA Facility:[facility] Start: 09-18-2016 End: 09-19-2016 Ambulatory PHY WO ID REFERRING Facility:[facility] Procedures Date Procedure Procedure Detail Performing Clinician Start: 06-22-2024 IR LUMBAR PUNCTURE Flor Bowling TESTING COORDINATOR - BELLH[employer] SERVICE CAPTAIN Work Phone: Start: 06-22-2024 End: 06-22-2024 Cell count miscellaneous body fluids Jaye Bowling TESTING COORDINATOR - BELLH[employer] SERVICE CAPTAIN Work Phone: Start: 06-22-2024 Glucose body fluid o ther than blood Jaye Bowling TESTING COORDINATOR - [facility] Work Phone: Start: 04-11-2024 C-reactive protein Flor Bowling TESTING COORDINATOR - [facility] Work Phone: Start: 04-11-2024 Sedimentation rate r bc automated Jaye Bowling TESTING COORDINATOR - [facility] Work Phone: Start: 09-15-2023 Drug tst prsmv [...] 12 lds trcg only w/o i&r Jade Heriberto Bautistak DO Work Phone: Start: 09-15-2023 SARS-CoV-2 (COVID-19 [...] ankle complete minimum 3 views Santi Colunga TESTING COORDINATOR.[facility] Work Phone: Start: 02-28-2023 Thyrotropin [Units/v olume] in Serum or Plasma Bria Smith MD Work Phone: Start: 02-28-2022 Us soft tissue head & neck real time imge docm [facility] Provider Start: 05-09-2021 Microscopic observat ion [Identifier] in Cervix by Cyto stain Bria Smith MD Work Phone: Plan of Treatment Date Care Activity Detail Author Start: 2070 RSV Immunization for Adults (1 - 1-dose 75+ series) RSV Immunization for Adults (1 - 1-dose 75+ series) [facility] Start: 2055 RSV Immunization age d 60 or older (1 - 1-dose 60+ series) RSV Immunization aged 60 or older (1 - 1-dose 60+ series) [facility] Start: 2045 Zoster Vaccines (1 o f 2) Zoster Vaccines (1 of 2) [facility] Start: 09-21-2027 DTaP/Tdap/Td Vaccine s (2 - Td or Tdap) DTaP/Tdap/Td Vaccines (2 - Td or Tdap) [facility] Start: 09-21-2027 Urine microalbumin profile DTaP,Tdap,Td Vaccine (2 - Td or Tdap) [facility] Start: 02-09-2025 End: 02-09-2025 Patient encounter procedure 02/09/2025 8:20 AM EST Office Visit [facility] [place] [address] [place] [address] Josh Mccann MD [address] [place] [address] [facility] [place] Start: 02-02-2025 End: 02-02-2025 Patient encounter procedure 02/02/2025 2:00 PM EST Office Visit [facility] - [place] [address] [place] [phone] Jaye Bowling, TESTING COORDINATOR - BELLHOP SERVICE CAPTAIN [address] [place], [place] [address] [facility] Start: 11-21-2024 COVID-19 Vaccine ( season) COVID-19 Vaccine ( season) [facility] Start: 11-21-[address] [facility] Start: 11-17-2024 End: 11-17-2025 XR Cervical spine 2 or 3 Views [facility] Work Phone: Comment on above: Expected: 11/17/2024 (Approximate), Expires: 11/17/2025 Once for 1 Occurrenc es starting 11/17/2024 until 11/17/2024 Start: 11-17-2024 End: 11-17-2024 Patient encounter procedure 11/17/2024 8:20 AM EDT Office Visit [facility] [place] [address] [place] [address] Josh Mccann MD [address] [place] [address] [facility] [place] Start: 11-03-2024 End: 11-03-2024 Patient encounter procedure 11/03/2024 2:30 PM EDT Office Visit [address] [place] [phone] Jaye Bowling, TESTING COORDINATOR - BELLH[employer] SERVICE CAPTAIN [address] [place] [address] [facility] Start: 10-20-2024 End: 10-20-2024 Patient encounter procedure 10/20/2024 11:45 AM EDT Procedure Visit [address] [place] [address] [facility] Start: 10-19-2024 End: 10-19-2024 Patient encounter procedure 10/19/2024 11:45 AM EDT Procedure Visit [address] [place] [address] [facility] Start: 10-18-2024 End: 10-18-2024 Patient encounter procedure 10/18/2024 11:45 AM EDT Procedure Visit [address] [facility] [place] [address] [facility] Start: 09-08-2024 End: 09-08-2024 Patient encounter procedure 09/08/2024 1:30 PM EDT Office Visit [address] [place] [address] Jaye Bowling APRN - BELLHOP SERVICE CAPTAIN [address] [place] [address] [facility] Start: 07-05-2024 End: 07-05-2024 Patient encounter procedure 07/05/2024 1:00 PM EDT Office Visit [address] [place] [address] Jaye Bowling APRN - BELLHOP SERVICE CAPTAIN [address] [place] [address] [facility] Start: 06-22-2024 End: 06-22-2024 Patient encounter procedure 06/22/2024 1:00 PM EDT Appointment [facility] [address] [place] [id number] Jaye Bowling APRN - BELLHOP SERVICE CAPTAIN [address] [place] [address] [facility] Start: 06-17-2024 End: 06-17-2025 CSF cell count with differential CSF cell count with differential Lab Routine Multiple sclerosis (HCC) Expected: 06/17/2024 (Approximate), Expires: 06/17/2025 [facility] Comment on above: Expected: 06/17/2024 (Approximate), Expires: 06/17/2025 Start: 06-17-2024 End: 06-17-2025 Glucose, CSF Glucose, CSF Lab Routine Multiple sclerosis ([facility]) Expected: 06/17/2024 (Approximate), Expires: 06/17/2025 [facility] Comment on above: Expected: 06/17/2024 (Approximate), Expires: 06/17/2025 Start: 06-17-2024 End: 06-17-2025 Mycobacterium sp identified in Unspecified specimen by Organism specific culture AFB culture Microbiology Routine Multiple sclerosis ([facility]) Expected: 06/17/2024 (Approximate), Expires: 06/17/2025 [facility] Comment on above: Expected: 06/17/2024 (Approximate), Expires: 06/17/2025 Start: 06-17-2024 End: 06-17-2025 Oligoclonal banding Oligoclonal banding Lab Routine Multiple sclerosis ([facility]) Expected: 06/17/2024 (Approximate), Expires: 06/17/2025 [facility] Work Phone: Comment on above: Expected: 06/17/2024 (Approximate), Expires: 06/17/2025 Start: 06-17-2024 End: 06-17-2025 Protein, CSF Protein, CSF Lab Routine Multiple sclerosis ([facility]) Expected: 06/17/2024 (Approximate), Expires: 06/17/2025 [facility] Comment on above: Expected: 06/17/2024 (Approximate), Expires: 06/17/2025 Start: 05-24-2024 End: 05-24-2024 Patient encounter procedure 05/24/2024 10:30 AM EST Office Visit [facility] Neurology [facility] [address] [place] [address] Jaye Bowling, TESTING COORDINATOR - BELLHOP SERVICE CAPTAIN [address] [place] [address] [facility] Start: 05-09-2024 Screening for malign ant neoplasm of cervix Pap Smear [facility] Start: 04-14-2024 End: 04-14-2024 Patient encounter procedure [facility] Start: 11-22-2023 Covid-19 Vaccine ( season) Covid-19 Vaccine () [facility] Start: 11-22-2023 COVID-19 Vaccine ( season) COVID-19 Vaccine () [facility] Start: 11-22-2023 COVID-19 Vaccine () COVID-19 Vaccine () [facility] Start: 11-22-2023 Influenza vaccination [facility] Start: 05-20-2023 Thyroid stimulating hormone measurement TSH Level [facility] Start: 04-16-2023 End: 04-16-2023 Patient encounter procedure 04/16/2023 1:30 PM EST Office Visit [facility] [address] [place] [phone] Jaye Bowling, TESTING COORDINATOR - BELLHOP SERVICE CAPTAIN [address] [place] [address] [facility] Start: 01-14-2023 [facility] Start: 01-14-2023 CT angiography of ch est with contrast CTA Chest W/WO Contrast [facility] Start: 01-14-2023 CTA Chest vessels WO and W contrast IV [facility] Start: 11-21-2022 COVID-19 Vaccine ( season) COVID-19 Vaccine () [facility] Start: 11-21-2022 Influenza vaccination [facility] Start: 10-22-2022 End: 10-22-2022 Patient encounter procedure 10/22/2022 12:00 PM EDT Office Visit [facility] [address] [place] [phone] Jaye Bowling, TESTING COORDINATOR - BELLH[employer] SERVICE CAPTAIN [address] [place] [address] [facility] Start: 03-23-2022 Depression Assessment Depression Ass essment [facility] Start: 09-18-2020 COVID-19 Vaccine (3 - Booster for Moderna series) COVID-19 Vaccine (3 - Booster for Moderna series) [facility] Start: 2016 Pap Testing Pap Testing [facility] Start: 2016 Screening for malign ant neoplasm of cervix Cervical Cancer Screening [facility] Start: 2014 Hepatitis B Vaccine (1 of 3 - 19+ 3-dose series) Hepatitis B Vaccine (1 of 3 - 19+ 3-dose series) [facility] Start: 2014 Hepatitis B Vaccines (1 of 3 - 19+ 3-dose series) Hepatitis B Vaccines (1 of 3 - 19+ 3-dose series) [facility] Start: 2013 Anxiety Screening Anxiety Screening [facility] Start: 2013 Depression Screening Depression Scre ening [facility] Start: 2013 Diabetes mellitus screening Diabetes Screening [facility] Start: 2013 Hepatitis C screening [facility] Start: 2013 Hepatitis C Screening Hepatitis C [facility] Start: 2013 HIV Screening HIV Screening [facility] Start: 2013 HIV screening HIV Screening [facility] Start: 2008 Varicella vaccination Varicell a Vaccines (1 of 2 - 13+ 2-dose series) [facility] Start: 2007 Depression Monitoring Depression Mon itoring [facility] Start: 2007 Depression Screening Depression Scre ening [facility] Start: 1996 MMR Vaccines (1 of 1 - Standard series) MMR Vaccines (1 of 1 - Standard series) [facility] Start: 1996 Varicella vaccination Varicell a Vaccines (1 of 2 - 2-dose childhood series) [facility] Start: 1995 Covid-19 Vaccine (#1) Covid-19 Vacci ne (#1) [facility] Start: 1995 Hepatitis B Vaccine (1 of 3 - 3-dose series) Hepatitis B Vaccine (1 of 3 - 3-dose series) [facility] Start: 1995 Hepatitis B Vaccines (1 of 3 - 3-dose series) Hepatitis B Vaccines (1 of 3 - 3-dose series) [facility] Start: 1995 HIV screening HIV Screening [facility] Start: 1995 Lipid panel Lipid Panel [facility]al th CSF Cell Count CSF Cell Count L ab Routine Multiple sclerosis (HCC) Ordered: 06/17/2024 [facility] Comment on above: Ordered: 06/17/2024 End: 06-22-2024 Mycobacterium sp identified in Unspecified specimen by Organism specific culture [facility] Work Phone: Comment on above: Once (Lab) for 1 Occ urrences starting 06/22/2024 until 06/22/2024 End: 06-22-2024 Oligoclonal banding [facility] Comment on above: Once (Lab) for 1 Occ urrences starting 06/22/2024 until 06/22/2024 Patient Education ED Back and Ne ck Pain, General [facility] Work Phone: Patient referral [facility] Work Phone: Immunizations Immunization Date Immunization Notes Care Provider Fa [facility] 09-20-2017 tetanus toxoid, redu barbara diphtheria toxoid, and acellular pertussis vaccine, adsorbed BRIA SMITH MD [facility] Payers Date Payer Category Payer Medicaid HMO [facility] ODM [id number] 2024 Medicaid MEDICAID - [facility] [id number] 2024 Unknown [id number] 2024 Self-pay 2021 Commercial Managed [facility] [employer] [id number] 2021 Private Health Insurance [id number] 2021 Private Health Insurance [id number] 2021 Private Health Insurance [id number] 2016 Unknown [id number] 1995 Unknown [id number] .[id number] Unknown Unknown [facility] [employer] [id number] Unknown [id number] .462 Unknown [id number] [id number] .462 Unknown [id number] 2.840.1.691718.3.579.2 .462 Unknown [id number] [id number] .462 Unknown [id number] 2.16.840.1.685885.3.579.2 .462 Unknown [id number] 2.16.840.1.388460.3.579.2 .462 Unknown [id number] 2.16.840.1.236862.3.579.2 .462 Unknown [id number] 2.16.840.1.011044.3.579.2 .462 Unknown [id number] 2.16.840.1.833378.3.579.2 .462 Unknown [id number] 2.16.840.1.166588.3.579.2 .462 Unknown [id number] 2.16.840.1.758459.3.579.2 .462 Unknown [id number] 2.16.840.1.342536.3.579.2 .462 Unknown [id number] 2.16.840.1.285557.3.579.2 .462 Unknown [id number] 2.16.840.1.223292.3.579.2 .462 Unknown [id number] 2.16.840.1.930949.3.579.2 .462 Unknown [id number] 2.16.840.1.483871.3.579.2 .462 Unknown [id number] 2.16.840.1.927326.3.579.2 .462 Unknown [id number] 2.16.840.1.419385.3.579.2 .462 Unknown [id number] 2.16.840.1.995395.3.579.2 .462 Unknown [id number] .462 Social History Date Type Detail Facility Start: 05-27-2018 End: 08-15-2022 Tobacco smoking status Never smoked tobacco (finding) [facility] Sex Assigned At Sex [facility] Start: 03-11-2022 End: 11-17-2024 Alcohol intake Lifetime non-drinker (finding) [facility] Start: 1995 Sex Assigned At Not on file [facility] Start: 03-11-2022 End: 11-17-2024 History of Social function [facility] Start: 03-11-2022 End: 11-17-2024 Tobacco use panel [facility] Start: 01-20-2022 End: 10-22-2022 Exposure to SARS-CoV-2 (event) Not sure [facility] Start: 01-14-2023 End: 01-14-2023 Tobacco smoking status NHIS Unknown if ever smoked [facility] Start: 1995 Sex Assigned At Female [facility] Start: 10-08-2018 End: 08-15-2022 Tobacco use and exposure Smokeless tobacco non-user [facility] Start: 04-14-2019 End: 08-15-2022 Alcohol intake Current non-drinker of alcohol (finding) [facility] National Score (1-10 0), lower number is lower risk Not on file [facility] How often to you hav e a drink containing alcohol? Never [facility] Start: 10-21-2021 Sex Female (finding) [facility] Clinical Notes 12-23-2021 to 12-09-2024 Telephone Encounter - Mayela Park MA - 12/09/2024 1:32 PM EDTTelephone Encounter - Mayela Park MA - 12/09/2024 1:32 PM EDTTelephone Encounter - Mayela Park MA - 12/09/2024 11:32 AM EDT Note Date & Type Note Facility 12-09-2024 Telephone encounter Note I called [facility] ( ), GammaCore is not a covered benefit. [facility] notified, they said it may be covered under her medical benefits. They suggest we call pt's medical insurance to see if it can be processed through medical benefits. [employer] will not be able to send pt the GammaCore device. Insurance will need to tell us where she can get it. [facility] 12-09-2024 Miscellaneous Notes I called [facility] ( ), GammaCore is not a covered benefit. [facility] notified, they said it may be covered under her medical benefits. They suggest we call pt's medical insurance to see if it can be processed through medical benefits. [employer] will not be able to send pt the GammaCore device. Insurance will need to tell us where she can get it. I called [facility], they said they tried to PA the GammaCore device but insurance said only the prescriber can initiate the auth. Ph # Name of caller: [employer] Contact phone number: [phone] Relationship to Patient: Pharmacy Provider: Reyes Bowling Practice: Neurology Chief Complaint/Reason for Call: [place] called back to check on prior authorization for Gammacore. Please advise. Best time of day caller can be reached: Any Patient advised that office/PCP has 24-48 business hours to return their call: N/A Name of caller: [employer] Contact phone number: [phone] Relationship to Patient: Pharmacy Provider: Reyes Bowling Practice: Neurology Chief Complaint/Reason for Call: Pharmacy called to request a prior authorization for Gammacore. Please submit PA as requested. Best time of day caller can be reached: Any Patient advised that office/PCP has 24-48 business hours to return their call: Yes documented in this encounter [facility] 12-09-2024 Telephone encounter Note I called [facility], they said they tried to PA the GammaCore device but insurance said only the prescriber can initiate the auth. Ph # [facility] 12-08-2024 Telephone encounter Note Name of caller: Ring[place] Contact phone number: [phone] Relationship to Patient: Pharmacy Provider: Reyes Bowling Practice: Neurology Chief Complaint/Reason for Call: [place] called back to check on prior authorization for Gammacore. Please advise. Best time of day caller can be reached: Any Patient advised that office/PCP has 24-48 business hours to return their call: N/A [facility] 12-01-2024 Telephone encounter Note Name of caller: Narinder Contact phone number: [phone] Relationship to Patient: Pharmacy Provider: Reyes Bowling Practice: Neurology Chief Complaint/Reason for Call: Pharmacy called to request a prior authorization for Gammacore. Please submit PA as requested. Best time of day caller can be reached: Any Patient advised that office/PCP has 24-48 business hours to return their call: Yes [facility] 11-29-2024 Telephone encounter Note Called and relayed message [facility] 11-29-2024 Telephone encounter Note ----- Message from Josh Mccann MD sent at 11/22/2024 8:18 AM EDT ----- Please inform the patient of the results of the cervical x-ray unremarkable cervical spine study with no significant abnormalities ----- Message ----- From: Interface, Radiology Results In Sent: 11/22/2024 12:04 AM EDT To: Josh Mccann MD [facility] 11-29-2024 Miscellaneous Notes Called and relayed message ----- Message from Josh Mccann MD sent at 11/22/2024 8:18 AM EDT ----- Please inform the patient of the results of the cervical x-ray unremarkable cervical spine study with no significant abnormalities ----- Message ----- From: Interface, Radiology Results In Sent: 11/22/2024 12:04 AM EDT To: Josh Mccann MD documented in this encounter [facility] 11-17-2024 History of Presen t illness Narrative Images from the original note were not included. [facility] - [address] [facility] [address] Dept: [phone] Dept Chief Complaint Patient presents with Back [...] Weight: 238 lb (108 kg) Height: 5' 9" (1.753 m) GENERAL: On examining the patient, [...] was offered the opportunity to have a open developer operator in the examining room. . Thank you, [...] AVS and instructed to contact myself via [employer] or call the office anytime with any [...] for this visit. documented in this encounter [facility] 11-03-2024 History of Presen t illness Narrative [facility] NEUROLOGY OUTPATIENT CLINIC Primary Care Physician: Anirudh [...] is seen in the NEUROLOGY CLINIC of [facility] for complaint of headaches. Patient states that [...] to call the Department of Neurology at [phone] for any further concerns. Sincerely, JACE Romero [...] know the dosage. documented in this encounter [facility] 10-20-2024 Telephone encounter Note Spoke with Reyes Bowling NP and Dr Smith. DHE can cause cystitis-so patient should not come for 3rd infusion today. Rest, increase fluids-no new meds today-and patient cannot tolerate Prednisone. Call with update if she needs anything further. Appt today cancelled [facility] 10-20-2024 Miscellaneous Notes Spoke with Reyes [...] Office Name: Neurology documented in this encounter [facility] 10-20-2024 Telephone encounter Note Name of [...] Rosy back this morning. Office Name: Neurology [facility] 10-19-2024 History of Presen t illness Narrative Patient tolerated infusion well. Discharged home with friend Cosigned by Bria Smith MD at 10/19/2024 3:07 PM EDT documented in this encounter [facility] 10-18-2024 History of Presen t illness Narrative Patient tolerated infusion well. Discharged home with friend Cosigned by Bria Smith MD at 10/18/2024 4:50 PM EDT documented in this encounter [facility] 09-08-2024 History of Presen t illness Narrative [facility] NEUROLOG[facility] OUTPATIENT CLINIC Primary Care Physician: Anirudh [...] is seen in the NEUROLOGY CLINIC of [facility] for complaint of headaches. Patient states that [...] Cuff Size: Adult) Pulse 67 Ht 5' 9" (1.753 m) Wt 250 lb 12.8 oz [...] to call the Department of Neurology at [phone] for any further concerns. Sincerely, JACE Romero CNP The above diagnosis and management plan were discussed at length with the patient who voiced understanding and agreed. Electronically signed by: JACE Romero CNP 09/08/2024 1:53 PM documented in this encounter [facility] 09-07-2024 Telephone encounter Note Patient prefers to wait for 3 day infusion at end of September. Scheduled for 10-18,30,31 [facility] 09-07-2024 Miscellaneous Notes Patient prefers to wait for 3 day infusion at end of September. Scheduled for 10-18,30,31 Name of Caller: Rosy Contact Reason for Appointment: Rosy returned call to Mar to schedule her infusion. Please reach out to Rosy when available. Office Name: [facility] Neurology documented in this encounter [facility] 09-07-2024 Telephone encounter Note Name of Caller: Rosy Contact Reason for Appointment: Rosy returned call to Mar to schedule her infusion. Please reach out to Rosy when available. Office Name: [facility] Neurology [facility] 07-05-2024 History of Presen t illness Narrative [facility] NEUR[facility] OUTPATIENT CLINIC Primary Care Physician: Anirudh [...] is seen in the NEUROLOGY CLINIC of [facility] for complaint of headaches. Patient states that [...] 36.7 C (98.1 F) (Infrared) Ht 5' 9" (1.753 m) Wt 231 lb (105 kg) [...] to call the Department of Neurology at [phone] for any further concerns. Sincerely, JACE Romero CNP The above diagnosis and management plan were discussed at length with the patient who voiced understanding and agreed. Electronically signed by: JACE Romero CNP 07/05/2024 1:07 PM documented in this encounter [facility] 06-22-2024 Miscellaneous Notes Patient verbalized readiness to leave. Patient left with all medications, discharge paperwork, and verbalized all belongings present. Patient and family verbalized understanding of patient education. Patient left in wheelchair with family to drive. All questions answered. documented in this encounter [facility] 06-22-2024 Nurse Note Patient verbalized readiness to leave. Patient left with all medications, discharge paperwork, and verbalized all belongings present. Patient and family verbalized understanding of patient education. Patient left in wheelchair with family to drive. All questions answered. [facility] 06-22-2024 Note Interventional Radio logy Post Procedure: Rosy tolerated her Lumbar Puncture very well. She is alert and in no distress. She denies discomfort. Band aid to lower back LP site is dry and intact. No bleeding. No hematoma. Transfer to [facility] for recovery and discharge. [facility] 06-22-2024 Nurse Note Interventional Radiology Post Procedure: Rosy tolerated her Lumbar Puncture very well. She is alert and in no distress. She denies discomfort. Band aid to lower back LP site is dry and intact. No bleeding. No hematoma. Transfer to [facility] for recovery and discharge. [facility] 06-22-2024 Nurse Note Interventional Radiology Post Procedure: Rosy tolerated her Lumbar Puncture very well. She is alert and in no distress. She denies discomfort. Band aid to lower back LP site is dry and intact. No bleeding. No hematoma. Transfer to [facility] for recovery and discharge. IR Procedures: Rosy is here at [facility] for a LP . She has verbalized understanding of the procedural instructions. Dr. Spangler has spoken to her. History, allergies, medications and lab results reviewed. Informed consent has been signed. Prepped and draped in sterile fashion. Time out performed. She is on a monitor. Patient ready for the procedure. IR is ready. documented in this encounter [facility] 06-22-2024 Note IR Procedures: Rosy is here at [facility] for a LP . She has verbalized understanding of the procedural instructions. Dr. Spangler has spoken to her. History, allergies, medications and lab results reviewed. Informed consent has been signed. Prepped and draped in sterile fashion. Time out performed. She is on a monitor. Patient ready for the procedure. IR is ready. [facility] 06-22-2024 Nurse Note IR Procedures: Rosy is here at [facility] for a LP . She has verbalized understanding of the procedural instructions. Dr. Spangler has spoken to her. History, allergies, medications and lab results reviewed. Informed consent has been signed. Prepped and draped in sterile fashion. Time out performed. She is on a monitor. Patient ready for the procedure. IR is ready. [facility] 06-17-2024 Telephone encounter Note Results request faxed to PCP [facility] 06-17-2024 Miscellaneous Notes Results request faxed [...] Reason for Disposition Mild depression Protocols used: [id number] documented in this encounter [facility] 06-17-2024 Note Formatting of this n [...] blood thinners or if they have questions/concerns. [facility] 06-17-2024 Miscellaneous Notes Left message for [...] they have questions/concerns. documented in this encounter [facility] 06-17-2024 Telephone encounter Note Called and [...] in. The patient agreed and verbalized understanding. [facility] 06-17-2024 Telephone encounter Note Please advise the patient the results of the MRI were received. Additional testing was ordered to further evaluate. An order for a lumbar puncture was placed. [facility] 06-17-2024 Telephone encounter Note Noted [facility] 06-17-2024 Miscellaneous Notes Noted Name of caller: Chasidy Contact phone number: [phone] Relationship to Patient: PCP office Provider: SKIP Bowling Practice: [facility] Chief Complaint/Reason for Call: Chasidy called [...] their call: N/A documented in this encounter [facility] 06-17-2024 Telephone encounter Note Lmovm. Please release message to patient as written. If patient had more recent MRI please ask where it was done so that we can request records. [facility] 06-17-2024 Telephone encounter Note Name of caller: Chasidy Contact phone number: [phone] Relationship to Patient: PCP office Provider: SKIP Bowling Practice: [facility] Chief Complaint/Reason for Call: Chasidy called [...] business hours to return their call: N/A [facility] 06-17-2024 Telephone encounter Note Please advise the patient the last MRI brain was 2021 that I can see and it is not concerning for MS. Most recent labs were also normal. It is advised that the patient follow up with psychiatry for depression symptoms. [facility] 06-17-2024 Telephone encounter Note S: Patient's [...] Reason for Disposition Mild depression Protocols used: [id number] [facility] 05-24-2024 History of Presen t illness Narrative [facility] NEUR[facility] OUTPATIENT CLINIC Primary Care Physician: Anirudh [...] is seen in the NEUROLOGY CLINIC of [facility] for complaint of headaches. Patient states that [...] negative. PHYSICAL EXAM: BP 120/76 Ht 5' 9" (1.753 m) Wt 231 lb (105 kg) [...] to call the Department of Neurology at [phone] for any further concerns. Sincerely, JACE Romero CNP The above diagnosis and management plan were discussed at length with the patient who voiced understanding and agreed. Electronically signed by: JACE Romero CNP 05/24/2024 10:36 AM documented in this encounter [facility] 04-14-2024 Telephone encounter Note Requested Prescriptions Signed Prescriptions Disp Refills naratriptan (Amerge) 2.5 MG tablet 9 tablet 3 Sig: Take 1 tablet (2.5 mg) by mouth Once as needed for migraine (may repeat x1). Authorizing Provider: JAYE BOWLING [facility] 04-14-2024 Miscellaneous Notes Requested Prescriptions Signed [...] Name of caller: Rosy Contact phone number: [phone] Relationship to Patient: patient Provider: SKIP Bowling Practice: Neuro Chief Complaint/Reason for Call: Pt states the medication she was just prescribed on 04/11/24 has not been helping her with headaches. Please advise. Best time of day caller can be reached: any Patient advised that office/PCP has 24-48 business hours to return their call: N/A documented in this encounter [facility] 04-14-2024 Telephone encounter Note LMOVM released message to patient as written. [facility] 04-14-2024 Telephone encounter Note Please inquire as to if the patient has tried the Reyvow sample. She can use it today if not. The patient can also use the Ajovy injection today. [facility] 04-14-2024 Telephone encounter Note Name of caller: Rosy Contact phone number: [phone] Relationship to Patient: patient Provider: SKIP Bowling Practice: Neuro Chief Complaint/Reason for Call: Pt states the medication she was just prescribed on 04/11/24 has not been helping her with headaches. Please advise. Best time of day caller can be reached: any Patient advised that office/PCP has 24-48 business hours to return their call: N/A [facility] 04-11-2024 History of Presen t illness Narrative [facility] NEUR[facility] OUTPATIENT CLINIC Primary Care Physician: Anirudh [...] is seen in the NEUROLOGY CLINIC of [facility] for complaint of headaches. Patient states that [...] 37.4 C (99.3 F) (Infrared) Ht 5' 9" (1.753 m) Wt 231 lb (105 kg) [...] to call the Department of Neurology at [phone] for any further concerns. Sincerely, JACE Romero CNP The above diagnosis and management plan were discussed at length with the patient who voiced understanding and agreed. Electronically signed by: JACE Romero CNP 04/11/2024 1:28 PM The patient, Rosy Oliva, identity was verified by name and . Informed patient of procedure. Received informed consent to proceed with Ketorolac 60 mg/ 2 mL injection. Injection given as ordered by JACE Romero CNP. Rosy Rawls waited 15 minutes after injection, tolerated procedure well. [facility]: [id number] Lot: [id number] Exp: 08/19/2024 documented in this encounter [facility] 04-11-2024 Note The patient, Rosy lveine, identity was verified by name and . Informed patient of procedure. Received informed consent to proceed with Ketorolac 60 mg/ 2 mL injection. Injection given as ordered by JACE Romero CNP. Rosy Rawls waited 15 minutes after injection, tolerated procedure well. [facility]: [id number] Lot: [id number] Exp: 08/19/2024 [facility] 02-15-2024 Telephone encounter Note Requested Prescriptions Signed Prescriptions Disp Refills fremanezumab (Ajovy) 225 MG/1.5ML auto-injector 4.5 mL 3 Sig: Inject 1 Pen (225 mg) under the skin every 30 (thirty) days. Authorizing Provider: JAYE BOWLING [facility] 02-15-2024 Miscellaneous Notes Requested Prescriptions Signed Prescriptions Disp Refills fremanezumab (Ajovy) 225 MG/1.5ML auto-injector 4.5 mL 3 Sig: Inject 1 Pen (225 mg) under the skin every 30 (thirty) days. Authorizing Provider: JAYE BOWLING [facility] has obtained approved for Ajovy and pended Rx. Please route to [facility]. documented in this encounter [facility] 02-15-2024 Telephone encounter Note [facility] has obtained approved for Ajovy and pended Rx. Please route to [facility]. [facility] 02-12-2024 Telephone encounter Note I can print off this form. I just want to double check that this isnt something [facility] helps with. Patient is requesting TEVA rom gets filled out to help pay for Ajovy. [facility] 02-12-2024 Miscellaneous Notes I can print off this form. I just want to double check that this isnt something [facility] helps with. Patient is requesting TEVA rom gets filled out to help pay for Ajovy. Name of caller: Rosy Contact phone number: [phone] Relationship to Patient: patient Provider: SKIP Bowling Practice: [facility] Chief Complaint/Reason for Call: Pt states she received a call from [employer] who advised that they have not been able to get in contact with anyone at the office. Pt states that an attempt was even made today. Pt states she was advised that the form can be found and downloaded off of their website and faxed back to them for processing. Pt provided website [email or web address] and fax# [phone]. Pt states she would like to be notified once this has been completed. Pt states she has chronic migraines and really needs for this to be completed as soon as possible. Please review. Best time of day caller can be reached: any Patient advised that office/PCP has 24-48 business hours to return their call: Yes Called and left message with [employer]. Will provide information once they call back Name of caller: Rosy Contact phone number: [phone] Relationship to Patient: patient Provider: LEXY Bowling Practice: Neuro Chief Complaint/Reason for Call: Rosy said that [facility] called to see about the forms and to discuss the patient. Non one answered or responded. She would like a call to the [facility] at [phone] so she can be set up. Please advise. Best time of day caller can be reached: any Patient advised that office/PCP has 24-48 business hours to return their call: Yes Noted. FYI: Name of caller: Rosy Contact phone number: [phone] Relationship to Patient: patient Provider: SKIP Bowling Practice: [facility] Chief Complaint/Reason for Call: Patient states that her insurance will no longer cover Ajovy and she is in the middle of the try and fail stage currently trying Emgality, which is not working at all. Patient states that instead of going three months in pain to complete the try and fail medications she would like to sign up with [facility] [employer] to get payment assistance for the Ajovy since it worked so well. Patient states that a [facility] practice representative will be reaching out to the office to request an active prescription. Please advise. Best time of day caller can be reached: Any Patient advised that office/PCP has 24-48 business hours to return their call: No documented in this encounter [email or web address] 02-12-2024 Telephone encounter Note Name of caller: Rosy Contact phone number: [phone] Relationship to Patient: patient Provider: SKIP Bowling Practice: [facility] Chief Complaint/Reason for Call: Pt states she received a call from [facility] who advised that they have not been able to get in contact with anyone at the office. Pt states that an attempt was even made today. Pt states she was advised that the form can be found and downloaded off of their website and faxed back to them for processing. Pt provided website [employer] and fax# [phone]. Pt states she would like to be notified once this has been completed. Pt states she has chronic migraines and really needs for this to be completed as soon as possible. Please review. Best time of day caller can be reached: any Patient advised that office/PCP has 24-48 business hours to return their call: Yes [facility] 02-03-2024 Telephone encounter Note Called and left message with [employer]. Will provide information once they call back [facility] 02-03-2024 Miscellaneous Notes Called and left message with [employer]. Will provide information once they call back Name of caller: Rosy Contact phone number: [phone] Relationship to Patient: patient Provider: LEXY Bowling Practice: Neuro Chief Complaint/Reason for Call: Rosy said that [facility] [place] called to see about the forms and to discuss the patient. Non one answered or responded. She would like a call to the [facility] at [phone] so she can be set up. Please advise. Best time of day caller can be reached: any Patient advised that office/PCP has 24-48 business hours to return their call: Yes Noted. FYI: Name of caller: Rosy Contact phone number: [phone] Relationship to Patient: patient Provider: SKIP Bowling Practice: [facility] Chief Complaint/Reason for Call: Patient states that her insurance will no longer cover Ajovy and she is in the middle of the try and fail stage currently trying Emgality, which is not working at all. Patient states that instead of going three months in pain to complete the try and fail medications she would like to sign up with [facility] to get payment assistance for the Ajovy since it worked so well. Patient states that a [facility] representative will be reaching out to the office to request an active prescription. Please advise. Best time of day caller can be reached: Any Patient advised that office/PCP has 24-48 business hours to return their call: No documented in this encounter [facility] 02-01-2024 Telephone encounter Note Name of caller: Rosy Contact phone number: [phone] Relationship to Patient: patient Provider: LEXY Bowling Practice: Neuro Chief Complaint/Reason for Call: Rosy said that [facility] called to see about the forms and to discuss the patient. Non one answered or responded. She would like a call to the [facility] at [phone] so she can be set up. Please advise. Best time of day caller can be reached: any Patient advised that office/PCP has 24-48 business hours to return their call: Yes [facility] 02-01-2024 Miscellaneous Notes Name of caller: Rosy Contact phone number: [phone] Relationship to Patient: patient Provider: LEXY Bowling Practice: Neuro Chief Complaint/Reason for Call: Rosy said that [facility] [place] called to see about the forms and to discuss the patient. Non one answered or responded. She would like a call to the [facility] at [phone] so she can be set up. Please advise. Best time of day caller can be reached: any Patient advised that office/PCP has 24-48 business hours to return their call: Yes Noted. FYI: Name of caller: Rosy Contact phone number: [phone] Relationship to Patient: patient Provider: SKIP Bowling Practice: [facility] Chief Complaint/Reason for Call: Patient states that her insurance will no longer cover Ajovy and she is in the middle of the try and fail stage currently trying Emgality, which is not working at all. Patient states that instead of going three months in pain to complete the try and fail medications she would like to sign up with [facility] to get payment assistance for the Ajovy since it worked so well. Patient states that a [facility] representative will be reaching out to the office to request an active prescription. Please advise. Best time of day caller can be reached: Any Patient advised that office/PCP has 24-48 business hours to return their call: No documented in this encounter [facility] 01-11-2024 Telephone encounter Note Noted. [facility] 01-11-2024 Telephone encounter Note FYI: Name of caller: Rosy Contact phone number: [phone] Relationship to Patient: patient Provider: SKIP Bowling Practice: [facility] Chief Complaint/Reason for Call: Patient states that her insurance will no longer cover Ajovy and she is in the middle of the try and fail stage currently trying Emgality, which is not working at all. Patient states that instead of going three months in pain to complete the try and fail medications she would like to sign up with [facility] to get payment assistance for the Ajovy since it worked so well. Patient states that a [facility] representative will be reaching out to the office to request an active prescription. Please advise. Best time of day caller can be reached: Any Patient advised that office/PCP has 24-48 business hours to return their call: No [facility] 12-08-2023 Telephone encounter Note Requested Prescriptions Signed Prescriptions Disp Refills galcanezumab (Emgality) 120 MG/ML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 puncture Jaye Bowling, TESTING COORDINATOR - [employer] SERVICE CAPTAIN [address] [place] [address] Phone: tel: fax: Referral ID Status Reason Start Date Expiration Date Visits Re quested Visits Authorized [id number] Closed 06/17/2024 06/17/2025 1 1 [facility] Summary Purpose Family History No Family History Records FoundNo Family History Records FoundNo Family History Records FoundNo Family History Records FoundNo Family History Records FoundNo Family History Records Found Advance Directives No Advanced Directives Records Found Advance Directive Response Recorded Date/ Time Living Will No January 14 12:17am Power of Chartered Financial Analyst No January 14, 2023 12:17am Advance Directive Response Recorded Date/ Time Living Will No January 13 11:17pm Power of Chartered Financial Analyst No January 13, 2023 11:17pm Chief Complaint and Reason for Visit Chief Complaint RIB PAIN Additional Source Comments INFORMATION SOURCE (unrecogn ized section and content) DATE CREATED AUTHOR 09/15/2017 [employer] DATE CREATED AUTHOR AUTHOR'S ORGANIZ ATION 09/16/2017 [facility] [employer] DATE CREATED AUTHOR AUTHOR'S ORGANIZ ATION 01/16/2022 [place] [employer] ([place]) DATE CREATED AUTHOR AUTHOR'S ORGANIZ ATION 01/29/2023 [facility] DATE CREATED AUTHOR AUTHOR'S ORGANIZ ATION 12/10/2024 [facility] [employer] [facility] DATE CREATED AUTHOR AUTHOR'S ORGANIZ ATION 02/02/2025 [facility] Care Team (unrecognized sect ion and content) Care Team Personnel Name: EDUARD COPPOLA DO Member Role: Primary Care Physician Address: Address: [facility] [address] [address]- Care Team Related Persons Name: AUTUMN STARK Address: Home [address] [place], [place] [id number] [place] Name: AUTUMN STARK Address: Home [address] [place], [place] [id number] [place] Name: AUTUMN STARK Name: AUTUMN STARK Address: Home [address] [place], [place] [id number] [place] Reason for Visit (unrecogniz ed section and content) Reason Onset Date Comments Forms/questionnaires 07/08/2022 Reason Onset Date Comments Prior Authorization 09/19/2022 Reason Onset Date Comments Medication Problem 02/25/2022 Reason Comments Follow-up Migraine Reason Comments Radiology [place] Reason Comments Follow-up Chronic migraines Reason Comments Med Refill Reason Onset Date Comments Suicidal 09/15/2023 Reason Comments Suicidal Per EMS, "pt sent a detailed text about self harm. Pt stated suicidal but wouldn't actually carry out a plan." Pt told this nurse she has a plan "but I dont think I could do it" Reason Onset Date Comments Other 10/20/2023 Unable [...] Specialty Diagnoses / Procedures Referred By Baron t Referred To Contact Diagnoses Chronic migraine without aura without status migrainosus, not intractable Intractable chronic migraine without aura and without status migrainosus Jyae Bowling APRN - CNP [address] [place] [address] Phone: tel: fax: Jaye Bowling APRN - CNP [address] [place] [address] Phone: tel: fax: Referral ID Status Reason [...] daily Specialty Diagnoses / Procedures Referred By Contopal t Referred To Contact Pain Medicine Diagnoses Cervical spine pain Procedures [place] OFFICE/OUTPATIENT NEW HIGH MDM 60 MINUTES Jaye Bowling APRN - [employer] SERVICE CAPTAIN [address] [place] [address] Phone: tel: fax: [facility] [address] [place] [address] Phone: tel: fax: Referral ID Status Reason Start Date Expiration Date Visits Requested Visits Authorized Pending Review Specialty Services Required 10/24/2024 10/24/2025 1 1 Reason Onset Date Comments Med Management 12/01/2024 [facility] Care Teams (unrecognized sec tion and content) Conversion Developer Relationship Specialty Start Date End Date Eduard Coppola DO [address] [phone] PCP - General 11/20/15 Conversion Developer Relationship Specialty Start Date End Date Eduard Coppola DO [address] [phone] PCP - General 11/20/15 Conversion Developer Relationship Specialty Start Date End Date Eduard Coppola DO [address] [phone] PCP - General 11/20/15 Conversion Developer Relationship Specialty Start Date End Date Eduard Coppola DO [address] [phone] PCP - General 11/20/15 Conversion Developer Relationship Specialty Start Date End Date Anirudh Jerez MD [address] [place] [address] [address] [place] [address] PCP - General Family Medicine 10/22/22 Team Status: Active Member Role Status Dates Anirudh Jerez MD Primary Care Provider Active Team Status: Inactive Member Role Status Dates Dr. Jonathan Ernst DO Emergency Provider Active Anirudh Jerez MD Primary Care Provider Active Conversion Developer Relationship Specialty Start Date End Date Eduard Coppola DO [address] [address] PCP - General Family Medicine 10/15/18 Team Status: Inactive Member Role Status Dates Anirudh Jerez MD Primary Care Provide r, Attending Provider, Referring Provider Active Team Status: Inactive Member Role Status Dates Dr. Jonathan Ernst DO Attending Provider, Emergency P rovider Active Anirudh Jerez MD Primary Care Provider Active Conversion Developer Relationship Specialty Start Date End Date Anirudh Jerez MD [address] [place] [address] [address] [place] [address] PCP - General Family Medicine 10/22/22 Conversion Developer Relationship Specialty Start Date End Date Anirudh Jerez MD [address] [place] [address] [address] [place], [place] [phone] PCP - General Family Medicine 10/22/22 Conversion Developer Relationship Specialty Start Date End Date Anirudh Jerez MD [address] [place] [address] [address] [place], [place] [phone] PCP - General Family Medicine 10/22/22 Conversion Developer Relationship Specialty Start Date End Date Anirudh Jerez MD [address] [place] [address] [address] [place] [address] PCP - General Family Medicine 10/22/22 Conversion Developer Relationship Specialty Start Date End Date Eudard Coppola DO [address] [address] PCP - General Family Medicine 10/15/18 Conversion Developer Relationship Specialty Start Date End Date Anirudh Jerez MD [address] [place] [address] [address] [place] [address] PCP - General Family Medicine 10/22/22 Conversion Developer Relationship Specialty Start Date End Date Anirudh Jerez MD [address] [facility] [address] [place] [address] PCP - General Family Medicine 10/22/22 Conversion Developer Relationship Specialty Start Date End Date Anirudh Jerez MD [address] [place] [address] [address] [place] [address] PCP - General Family Medicine 10/22/22 Conversion Developer Relationship Specialty Start Date End Date Anirudh Jerez MD [address] [facility] [address] [place] [address] PCP - General Family Medicine 10/22/22 Conversion Developer Relationship Specialty Start Date End Date Anirudh Jerez MD [address] [facility] [address] [place] [address] PCP - General Family Medicine 10/22/22 Conversion Developer Relationship Specialty Start Date End Date Anirudh Jerez MD [address] [facility] [address] [place] [address] PCP - General Family Medicine 10/22/22 Conversion Developer Relationship Specialty Start Date End Date Anirudh Jerez MD [address] [facility] [address] [place] [address] PCP - General Family Medicine 10/22/22 Conversion Developer Relationship Specialty Start Date End Date Anirudh Jerez MD [address] [facility] [address] [place] [address] PCP - General Family Medicine 10/22/22 Conversion Developer Relationship Specialty Start Date End Date Anirudh Jerez MD [address] [place] [address] [address] [place] [address] PCP - General Family Medicine 10/22/22 Conversion Developer Relationship Specialty Start Date End Date Anirudh Jerez MD [address] [facility] [address] [place] [address] PCP - General Family Medicine 10/22/22 Conversion Developer Relationship Specialty Start Date End Date Anirudh Jerez MD [address] [facility] [address] [place] [address] PCP - General Family Medicine 10/22/22 Conversion Developer Relationship Specialty Start Date End Date Anirudh Jerez MD [address] [facility] [address] [place] [address] PCP - General Family Medicine 10/22/22 Conversion Developer Relationship Specialty Start Date End Date Anirudh Jerez MD [address] [place] [address] [address] [place] [address] PCP - General Family Medicine 10/22/22 Conversion Developer Relationship Specialty Start Date End Date Anirudh Jerez MD [address] [place] [address] [address] [place] [address] PCP - General Family Medicine 10/22/22 Conversion Developer Relationship Specialty Start Date End Date Anirudh Jerez MD [address] [place] [address] [address] [place] [address] PCP - General Family Medicine 10/22/22 Conversion Developer Relationship Specialty Start Date End Date Anirudh Jerez MD [address] [place] [address] [address] [place] [address] PCP - General Family Medicine 10/22/22 Conversion Developer Relationship Specialty Start Date End Date Anirudh Jerez MD [address] [place] [address] [address] [place] [address] PCP - General Family Medicine 10/22/22 Conversion Developer Relationship Specialty Start Date End Date Anirudh Jerez MD [address] [place] [address] [address] [place] [address] PCP - General Family Medicine 10/22/22 Conversion Developer Relationship Specialty Start Date End Date Anirudh Jerez MD [address] [place] [address] [address] [place] [address] PCP - General Family Medicine 10/22/22 Goals [...] or prosecute any alcohol or drug abuse patient.[facility] Center[facility] the event this information is protected by the Federal Confidentiality of Alcohol and Drug Abuse Patient Records regulations: The Federal rules restrict any use of the information to criminally investigate or prosecute any alcohol or drug abuse patient.[facility] PRN Active and Recently Administ ered Medications [...] BE BASED ON THE PRIMARY CLINICAL RECORDS. [facility] HospitalFetch Technologies [facility]. provides no warranty or guarantee of the accuracy or completeness of information in this document.
== END | disposition home or self-care (01) ==
LOC: RAD 09:12
PROVIDERS: PCP Family Medicine; Referring Provider Family Medicine; Visit Provider Family Medicine
DX: M25.561 Pain in right knee (principal)

== ENCOUNTER → 2025-03-22 | Outpatient (CLI) | payer OTHER, MEDICAID, SELFPAY ==
--- NOTE | 2025-03-22 09:39 | RAD_ITS ---
PROCEDURE: KNEE 4 OR MORE VIEWS 03/22/2025 REASON FOR EXAM: PAIN Left knee pain. Patient has been wearing a boot on left foot for 2 months. "Knees gave out". Left knee pain is worse than right knee pain. TECHNIQUE: Procedure Code: RADKN Modality: DX Procedure: KNEE 4 OR MORE VIEWS COMPARISON: None FINDINGS: Four views of the left knee demonstrate normal mineralization of the osseous structures. There are no fractures or dislocations. Joint spaces are well preserved. There is no suprapatellar bursa effusion. There is no soft tissue swelling. RAD/Knee 4 or More Views IMPRESSION: Unremarkable left knee study. Reading Location: [id number]
--- NOTE | 2025-03-22 09:42 | RAD_ITS ---
PROCEDURE: KNEE 4 OR MORE VIEWS 03/22/2025 REASON FOR EXAM: PAIN TECHNIQUE: Procedure Code: RADKN Modality: DX Procedure: KNEE 4 OR MORE VIEWS COMPARISON: None FINDINGS: Four views of the right knee demonstrate normal mineralization of the osseous structures. There are no fractures or dislocations. Joint spaces are well preserved. There is no suprapatellar bursa effusion. There is no soft tissue swelling. RAD/Knee 4 or More Views IMPRESSION: Unremarkable right knee study. Reading Location: [id number]
[2025-03-22 17:42] LABS: Anion Gap 13 (7-18); BUN 9 mg/dL (4-19); BUN/Creat Ratio 11.7 RATIO (10-20); Calcium,Total 10.5 mg/dL (7.6-11.0); Carbon Dioxide 21.7 mmol/L (20.0-29.0); Chloride 104 mmol/L (96-106); Glucose 95 mg/dL (70-99); Magnesium 2.4 mg/dL (1.5-2.2); Potassium 3.8 mmol/L (3.5-5.1)
== END | disposition home or self-care (01) ==
PROVIDERS: Nurse Practitioner Family; PCP Family Medicine; Referring Provider Family Medicine; Visit Provider Family Medicine
DX: M25.561 Pain in right knee (principal); M25.562 Pain in left knee; R25.2 Cramp and spasm
CPT/HCPCS: 36415; 73564; 80048; 83735